=== PATIENT | male | born 1935 | race Caucasian/White ===

== ENCOUNTER → 2018-06-12 13:27 | Outpatient (CLI) | payer MEDICARE, SELFPAY ==
--- NOTE | 2018-06-12 13:40 | RAD_ITS ---
STUDY: X-RAY - ABDOMEN/PELVIS REASON FOR EXAM: Male, 82 years old. Pain TECHNIQUE: AP supine and upright views of the abdomen and pelvis. 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 Possible calcifications overlying the lower right renal shadow. Retained stool and bowel gas could obscure a calcification. There is a moderate amount of colonic fecal material. There is no demonstrated free abdominal air. The visualized liver, spleen and kidneys are grossly normal in size and morphology. There are calcified phleboliths in the pelvis. Normal visualized osseous structures. RAD/Abdomen Single View IMPRESSION: Possible right nephrolithiasis Retained stool No acute findings Electronically Signed: Johnson Krueger MD at 13:42 EDT , Service support ,
== END ==
PROVIDERS: Family Provider Family Medicine; PCP Family Medicine; Referring Provider Urology; Visit Provider Urology
DX: N20.0 Calculus of kidney (principal)
CPT/HCPCS: 74018

== ENCOUNTER → 2018-08-01 08:33 | Outpatient (CLI) | payer MEDICARE, SELFPAY ==
[2018-07-25 13:05] VITALS: BMI 22.4
--- NOTE | 2018-08-01 08:34 | AAVD_ITS ---
Reason For Study: AAA Aorta Measurements Aorta Doppler Measurements Proximal aorta measures2.54 x 2.57cm. in cross- Peak systolic flow velocities within the proximal sectional axis. aorta measure 80.7 cm/sec. Proximal aorta measures2.52cm. in longitudinal Peak systolic flow velocities within the mid aorta axis. measure 111.0 cm/sec. Mid aorta measures3.54 x 3.57cm. in cross- Peak systolic flow velocities within the distal sectional axis. aorta measure 93.9 cm/sec. Mid aorta measures3.50cm. in longitudinal axis. Distal aorta measures1.71 x 1.99cm. in cross- sectional axis. Distal aorta measures1.72cm. in longitudinal axis. Left Iliac Artery Left iliac artery measures 1.12 x 1.13 cm. in the cross-sectional axis. Left iliac artery measures 1.02 cm. in the longitudinal axis. Peak systolic velocity in the left iliac artery measures 92.1 cm/sec. Right Iliac Artery Right iliac artery measures 1.21 cm. in the longitudinal axis. Right iliac artery measures 1.28 x 1.27 cm. in the cross-sectional axis. Peak systolic velocity in the right iliac artery measures 90.3 cm/sec. Procedure Aorta IVC Iliac vasculature or bypass grafts 08051. The exam was diagnostic. Exam performed in department. 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 Ordering Physician: Mikhail Moran Referring Physician: Luis E Brunner Performed By: Uzma Anne, ABEBA, RVT
--- OUTSIDE RECORDS SUMMARY | 2018-11-02 09:02 | XMS RPT_ITS ---
:1935 Author Organization OHIP Care Team Providers Name Role Phone KAELA WINKLER III Attending Unavailable EDITH BELTRE (ALUMINUM SIDING MECHANIC) Attending Unavailable MIKHAIL GOLDEN Referring Unavailable CEBUL IIIKAELA Attending Unavailable CEBUL IIIKAELA Referring Unavailable CEBUL IIIKAELA Attending Unavailable CEBUL III, KAELA Lacey Attending Unavailable EDITH BELTRE (ALUMINUM SIDING MECHANIC) Attending Unavailable MIKHAIL GOLDEN Referring Unavailable MASCMIKHAIL Rojas Attending Unavailable MASCMIKHAIL Rojas Referring Unavailable MoodispawMikhail Attending Unavailable Cebul III, Kaela Referring Unavailable MoodispawMikhail Attending Unavailable MoodispaMikhail peterson Referring Unavailable Cebul III, Kaela Primary Care Unavailable Johnson Brenner Attending Unavailable Johnson Brenner Referring Unavailable Cebul III, Kaela Primary Care Unavailable Evelyn Villalpando Attending Unavailable CecameronlJosé Attending Unavailable Moodisp[place] Mikhail Referring Unavailable Cebul III, Kaela Primary Care Unavailable Mikhail Moran Consulting Unavailable MoodispaMikhail peterson Attending Unavailable Cebul III, Kaela Referring Unavailable Cebul III, Kaela Primary Care Unavailable PROBLEMS PROBLEMS DATE TYPE CONDITION / CODE ATTENDING STATUS SOURCE 08/01/2018 Unknown I10 - Essential José Winkler Active [facility] (primary) [facility] hypertension / Hospital I10(ICD-10) Repository 08/01/2018 Unknown I71.4 - Abdominal CebuJosé calvin Active [facility] aortic aneurysm, Community without rupture / Hospital I71.4(ICD-10) Repository 06/12/2018 Unknown N20.0 - Calculus of Johnson Brenner Active [facility] kidney / [facility] N20.0(ICD-10) Hospital Repository 11/24/2015 Active Vitamin B12 NA Active [place] deficiency anemia, [facility] unspecified / [place] D51.9(ICD-10) Repository 11/20/2015 Active Hyperlipidemia, NA Active [facility] unspecified / [facility] E78.5(ICD-10) [place] Repository 08/21/2014 Active Malignant neoplasm of NA Active [place] stomach, unspecified [facility] / C16.9(ICD-10) [place] Repository 12/21/2011 Active Hyperuricemia without NA Active [place] signs of inflammatory [facility] arthritis and [place] tophaceous disease / Repository E79.0(ICD-10) 05/01/2018 Active Vitamin D deficiency, NA Active [facility] unspecified / [facility] E55.9(ICD-10) [place] Repository 07/20/2017 Unknown I25.10 - DeanfridaMikhail peterson [place] [facility] Atherosclerotic heart [facility] disease of [facility] coronary artery Repository without angina pectoris / I25.10(ICD-10) 07/20/2017 Unknown Z95.5 - Presence of FauziaMikhail lindquist [facility] coronary angioplasty Community implant and graft / Hospital Z95.5(ICD-10) Repository 07/20/2017 Unknown I35.0 - Nonrheumatic DeanMikhail harrington [facility] aortic (valve) Community stenosis / Hospital I35.0(ICD-10) Repository PROCEDURES PROCEDURES No Procedure Records FoundRESULTS RESULTS PROGRESS Observed: 09/04/2018 Status: COMPLETED Source: [facility] 6:03 PM [facility] RE[facility] HNO ID: [id number] Author: Paul Vance (Rn) Service: (none) Author Type: Registered Nurse Type: Progress Notes Filed: 09/04/2018 6:11 PM Note Text: PRIMARY CARE COORDINATION FOLLOW-UP NOTE Provider Action/FYI Call to Pt spk with Jonny notified per Dr. Cebul Markham prescription refilled, verbalized understanding, and appreciation. Patient identified by name and date of . YES Spoke to spouse Signature Pinky Miller RN September 04, 2018 PROGRESS Observed: 09/04/2018 Status: COMPLETED Source: [facility] 5:56 PM [facility] REPOSITORY HNO ID: [id number] Author: Kaela Winkler III Service: (none) Author Type: Physician Type: Progress Notes Filed: 09/04/2018 6:11 PM Note Text: PDMP website checked and validated. All prescriptions have been APPROPRIATELY filled. No suspicious activity was identified. 09/04/2018 by Kaela Winkler III MD Taking an average of one norco per day Kaela Winkler III, , [facility] PROGRESS Observed: 09/04/2018 Status: COMPLETED Source: [facility] 3:31 PM [facility] REPOSITORY HNO ID: [id number] Author: Paul Vance (Rn) Service: (none) Author Type: Registered Nurse Type: Progress Notes Filed: 09/04/2018 6:11 PM Note Text: PRIMARY CARE COORDINATION PRE-VISIT ASSESSMENT Provider Action/FYI: 1. Spk with Pt who is requesting Markham refill to prevent the esophageal spasms, nausea and vomiting, Pt is maintaining wt of 1171 lbs. Pt reports he is now 4 yrs post Total Gastrectomy. 2. Pt has aching in his toes and feet, states will have Uric Acid drawn this week, scheduled PCP Appt for 09/10/18 at 4:00 to review lab work Patient has been identified by name and date of . Next Office Visit: 09/10/18 Last Office Visit Plan/Progress: 05/21/2018 Patient Concerns: Aching toes and feet -Uric Acid to be drawn this week Medication Review: Address in future encounter Health Maintenance: There are no preventive care reminders to display for this patient. Interventions/PCC Plan of Care: Follow for Care Needs Pinky Miller RN September 04, 2018 CNPTOUTREACH Observed: 09/04/2018 Status: COMPLETED Source: [facility] 12:00 AM [facility] REPOSITORY Patient Outreach ([facility]AMPWS) FILIPPO CHACON ([id number]) 1935 M Date Time Provider Department 09/04/18 PAUL VANCE (RN) [facility] During your visit today, we recorded the following information about you: Pinky Miller RN 09/04/2018 6:11 PM Signed PRIMARY CARE COORDINATION PRE-VISIT ASSESSMENT Provider Action/FYI: 1. Spk with Pt who is requesting Markham refill to prevent the esophageal spasms, nausea and vomiting, Pt is maintaining wt of 1171 lbs. Pt reports he is now 4 yrs post Total Gastrectomy. 2. Pt has aching in his toes and feet, states will have Uric Acid drawn this week, scheduled PCP Appt for 09/10/18 at 4:00 to review lab work Patient has been identified by name and date of . Next Office Visit: 09/10/18 Last Office Visit Plan/Progress: 05/21/2018 Patient Concerns: Aching toes and feet -Uric Acid to be drawn this week Medication Review: Address in future encounter Health Maintenance: There are no preventive care reminders to display for this patient. Interventions/PCC Plan of Care: Follow for Care Needs Pinky Miller RN September 04, 2018 Kaela Winkler III MD 09/04/2018 6:11 PM Signed PDMP website checked and validated. All prescriptions have been APPROPRIATELY filled. No suspicious activity was identified. 09/04/2018 by Kaela Winkler III MD Taking an average of one norco per day Kaela Winkler III, MD, FAAFP Pinky Miller RN 09/04/2018 6:11 PM Signed PRIMARY CARE COORDINATION FOLLOW-UP NOTE Provider Action/FYI Call to Pt spk with Jonny notified per Dr. Winkler Markham prescription refilled, verbalized understanding, and appreciation. Patient identified by name and date of . 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 Earliest Fill Date: 09/04/18Disp: 30 tabletRfl: 0 URIC ACID BLOOD [SQURIC] Order #: [id number] FUTURE Prescriptions as of 09/04/2018 Sig: HYDROCODONE 5 MG-ACETAMINOPHE* Take 1 tablet by mouth every * TAMSULOSIN 0.4 MG CAPSULE Take 1 capsule by mouth daily* SILDENAFIL (ANTIHYPERTENSIVE)* 20 mg by mouth once/day as ne* ALLOPURINOL 100 MG TABLET Take 2 tablets by mouth once * OMEPRAZOLE 40 MG CAPSULE,DANIELITO* 40mg by mouth daily PSEUDOEPHEDRINE-GUAIFENESIN E* Take 1 tablet by mouth every * DAILY VITAMIN TABLET Take one(1) tablet daily BY M* Problem List As Of Date 09/04/2018 Noted Resolved BENIGN HYPERTENSION [I10] 11/24/2014 Hyperlipidemia LDL goal <100 [E78.5] Inflamed seborrheic keratosis [L82.0] INVALID FOR*11/07/2014 Viral warts, unspecified [B07.9] INVALID FOR*11/07/2014 SOLAR LENGINES [L81.9] INVALID FOR*11/07/2014 XEROSIS [L73.8] INVALID FOR*11/07/2014 Other chronic dermatitis due to solar radiation*INVALID FOR*11/07/2014 CA IN SITU COLON [D01.0] INVALID FOR* BENIGN NEOPLASM LG BOWEL [D12.6] INVALID FOR* OTHER PSORIASIS [L40.8] INVALID FOR* Lipoma of unspecified site [D17.9] INVALID FOR*11/07/2014 AAA (abdominal aortic aneurysm) (HCC) [I71.4] INVALID FOR* More... 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 Earliest Fill Date: 09/04/18 Medications Discontinued During This Encounter HYDROcodone-acetaminophen (NORCO) 5-* 30 t* 0 07/24/2018 09/04/2018 Class: Print RX Route: ORAL Sig: Take 1 tablet by mouth every 6 hours as needed for Pain (or esophageal spasm) for up to 30 days. Earliest Fill Date: 07/24/18 Disc: Reason for discontinue is not on file. Encounter Status:Closed by PINKY MILLER on 09/04/18 PROGRESS Observed: 08/29/2018 Status: COMPLETED Source: [facility] 10:01 AM [facility] REPOSITORY HNO ID: [id number] Author: Mikhail Golden Service: (none) Author Type: Physician Type: Progress Notes Filed: 08/29/2018 10:46 AM Note Text: Diagnosis: 1) Gastric cancer HPI: The patient is a 82 yo male with a PMH significant for CAD (stent x1 in 2001), hyperuricemia and sleep apnea who underwent a gastrectomy in July 2014. 1. Stomach, total gastrectomy (A) - Moderately to poorly differentiated adenocarcinoma, with extensive foveolar differentiation (2.5cm in greatest dimension) with invasion into the submucosa but not into the muscularis propria. - Margins of resection are negative. - Thirty-three lymph nodes, negative for tumor (0/33). - See synoptic report. 2. Small bowel, nodule, excision (B) - Fibroadipose tissue with calcification. - Negative for carcinoma. 3. Esophageal margin #2, excision (C) - Squamous mucosa negative for invasive cancer. SAGE/MADDI/luis alfredo 07/29/2014 COMMENT 1. The tumor demonstrates a range of differentiation from areas of well-differentiated adenocarcinoma to areas of poorly differentiated single cells. The tumor involves the mucosa and the submucosa and abuts but does not invade into the muscularis propria. However, there is lymphovascular invasion. While 33 lymph nodes were ultimately found in this case. They were all negative and the vast majority of the lymph nodes were in the 1-2mm size range. IHC and molecular studies for HER2 were performed on the previous specimen ([id number]) HER-2 was noted to be equivocal. Surveillance CT scans in July 2015: 1. Stable postsurgical findings of distal esophagectomy, gastrectomy, and esophagojejunostomy. 2. Stable 4 mm indeterminate nodular opacity in the left lower lobe since 04/28/2014. Continued CT surveillance is suggested. 3. Indeterminate sclerotic lesion/region in the right aspect of the C7 vertebral body which was not imaged on the prior CT. While this may be degenerative, metastatic disease is not excluded and follow- up is recommended. 4. Findings consistent with prior granulomatous disease in the chest. POST ESOPHAGECTOMY AND ESOPHAGOJEJUNOSTOMY. NO METASTATIC DISEASE IN THE ABDOMEN OR PELVIS. 3.3 CM INFRARENAL ABDOMINAL AORTIC ANEURYSM, UNCHANGED. Presents for ongoing oncologic management. Interim history: Normal appetite. Still gets reflux, but finds chewing gum helps with that. Takes 1/2 Vicodin tablet morning and evening to stop esophageal spasms. No abdominal pain or nausea. Bowel movements tend to fluctuate--some days 2-3 times and sometimes goes 2-3 days without. Foods don't seem to related. Will take Imodium if going to be out and about. Staying active. PMH, medications and allergies as below personally reviewed by me today. Any changes documented in appropriate section. ROS: Constitutional: Denies episodes of fever and night sweats. Neuro: Denies BERG, vertigo and imbalance. No symptoms of neuropathy. HEENT: No recent change in voice, vision or hearing. Resp: Denies cough, wheeze and hemoptysis. No shortness of breath at rest. No DON. CVS: Denies exertional chest pain, PND, orthopnea and LE edema. GI: See above. : No dysuria or gross hematuria. No symptoms of bladder outlet obstruction--Flomax really helps. Endo: No hot flashes. Musculoskeletal: Denies bone, back, joint and muscular pain. Derm: No rash. Heme: No unusual bleeding or bruising. Psych: Normal mood. PHYSICAL EXAM: Vitals: Blood pressure 129/86, pulse (!) 52, temperature 36.5 ?C (97.7 ?F), weight 77.6 kg (171 lb). Well-appearing and in no acute distress. EYES: Sclerae are anicteric bilaterally. ENT: Oral mucosa is unremarkable. There is no sign of thrush or mucositis. NECK: Supple. No enlargement of thyroid. LYMPHATIC: There is no palpable cervical, supraclavicular or axillary or inguinal adenopathy. RESPIRATORY: Inspiratory breath sounds are of normal intensity in all mon. No rales, wheezes or rhonchi. CARDIOVASCULAR: Rhythm is regular. Normal intensity S1/S2. There is no gallop or murmur. ABDOMEN: The abdomen is nondistended. There is no organomegaly. No tenderness. Extremities: Free of edema. SKIN: No jaundice or rash. No petechiae. NEUROLOGIC: board certified music therapist II-XII are grossly intact. No focal motor weakness. 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 -No concerning symptoms or exam findings. -He has a history of a stable adrenal nodule. -He is now 4 years out from his original diagnosis of gastric cancer. -Recommended imaging on an as indicated basis at this point. He is intolerant to oral contrast. Plan: -OV in about 6 months. Plan on every 6 month office visit until 5 years out. Mikhail Golden DO CNOVSP Observed: 08/29/2018 Status: COMPLETED Source: [facility] 9:50 AM [facility] REPOSITORY Visit (SP) Office (HERMIN[facility]) FILIPPO CHACON ([id number]) 1935 M Date Time Provider Department 08/29/18 9:50 AM MIKHAIL GOLDEN During your visit today, we recorded the following information about you: Temperature Pulse Blood pressure Weight 97.7 degrees 52/minute 129/86 77.6 kg Mikhail Golden DO 08/29/2018 10:46 AM Signed Diagnosis: 1) Gastric cancer HPI: The patient is a 82 yo male with a PMH significant for CAD (stent x1 in 2001), hyperuricemia and sleep apnea who underwent a gastrectomy in July 2014. 1. Stomach, total gastrectomy (A) - Moderately to poorly differentiated adenocarcinoma, with extensive foveolar differentiation (2.5cm in greatest dimension) with invasion into the submucosa but not into the muscularis propria. - Margins of resection are negative. - Thirty-three lymph nodes, negative for tumor (0/33). - See synoptic report. 2. Small bowel, nodule, excision (B) - Fibroadipose tissue with calcification. - Negative for carcinoma. 3. Esophageal margin #2, excision (C) - Squamous mucosa negative for invasive cancer. SAGE/MADDI/luis alfredo 07/29/2014 COMMENT 1. The tumor demonstrates a range of differentiation from areas of well-differentiated adenocarcinoma to areas of poorly differentiated single cells. The tumor involves the mucosa and the submucosa and abuts but does not invade into the muscularis propria. However, there is lymphovascular invasion. While 33 lymph nodes were ultimately found in this case. They were all negative and the vast majority of the lymph nodes were in the 1-2mm size range. IHC and molecular studies for HER2 were performed on the previous specimen ([id number]) HER-2 was noted to be equivocal. Surveillance CT scans in July 2015: 1. Stable postsurgical findings of distal esophagectomy, gastrectomy, and esophagojejunostomy. 2. Stable 4 mm indeterminate nodular opacity in the left lower lobe since 04/28/2014. Continued CT surveillance is suggested. 3. Indeterminate sclerotic lesion/region in the right aspect of the C7 vertebral body which was not imaged on the prior CT. While this may be degenerative, metastatic disease is not excluded and follow- up is recommended. 4. Findings consistent with prior granulomatous disease in the chest. POST ESOPHAGECTOMY AND ESOPHAGOJEJUNOSTOMY. NO METASTATIC DISEASE IN THE ABDOMEN OR PELVIS. 3.3 CM INFRARENAL ABDOMINAL AORTIC ANEURYSM, UNCHANGED. Presents for ongoing oncologic management. Interim history: Normal appetite. Still gets reflux, but finds chewing gum helps with that. Takes 1/2 Vicodin tablet morning and evening to stop esophageal spasms. No abdominal pain or nausea. Bowel movements tend to fluctuate--some days 2-3 times and sometimes goes 2-3 days without. Foods don't seem to related. Will take Imodium if going to be out and about. Staying active. PMH, medications and allergies as below personally reviewed by me today. Any changes documented in appropriate section. ROS: Constitutional: Denies episodes of fever and night sweats. Neuro: Denies BERG, vertigo and imbalance. No symptoms of neuropathy. HEENT: No recent change in voice, vision or hearing. Resp: Denies cough, wheeze and hemoptysis. No shortness of breath at rest. No DON. CVS: Denies exertional chest pain, PND, orthopnea and LE edema. GI: See above. : No dysuria or gross hematuria. No symptoms of bladder outlet obstruction--Flomax really helps. Endo: No hot flashes. Musculoskeletal: Denies bone, back, joint and muscular pain. Derm: No rash. Heme: No unusual bleeding or bruising. Psych: Normal mood. PHYSICAL EXAM: Vitals: Blood pressure 129/86, pulse (!) 52, temperature 36.5 ?C (97.7 ?F), weight 77.6 kg (171 lb). Well-appearing and in no acute distress. EYES: Sclerae are anicteric bilaterally. ENT: Oral mucosa is unremarkable. There is no sign of thrush or mucositis. NECK: Supple. No enlargement of thyroid. LYMPHATIC: There is no palpable cervical, supraclavicular or axillary or inguinal adenopathy. RESPIRATORY: Inspiratory breath sounds are of normal intensity in all mon. No rales, wheezes or rhonchi. CARDIOVASCULAR: Rhythm is regular. Normal intensity S1/S2. There is no gallop or murmur. ABDOMEN: The abdomen is nondistended. There is no organomegaly. No tenderness. Extremities: Free of edema. SKIN: No jaundice or rash. No petechiae. NEUROLOGIC: board certified music therapist II-XII are grossly intact. No focal motor weakness. 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 -No concerning symptoms or exam findings. -He has a history of a stable adrenal nodule. -He is now 4 years out from his original diagnosis of gastric cancer. -Recommended imaging on an as indicated basis at this point. He is intolerant to oral contrast. Plan: -OV in about 6 months. Plan on every 6 month office visit until 5 years out. 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] Follow-up and Disposition History Recorded Prescriptions as of 08/29/2018 Sig: TAMSULOSIN 0.4 MG CAPSULE Take 1 capsule by mouth daily* HYDROCODONE 5 MG-ACETAMINOPHE* Take 1 tablet by mouth every * SILDENAFIL (ANTIHYPERTENSIVE)* 20 mg by mouth once/day as ne* ALLOPURINOL 100 MG TABLET Take 2 tablets by mouth once * OMEPRAZOLE 40 MG CAPSULE,DANIELITO* 40mg by mouth daily PSEUDOEPHEDRINE-GUAIFENESIN E* Take 1 tablet by mouth every * DAILY VITAMIN TABLET Take one(1) tablet daily BY M* Medication notes this encounter DAILY VITAMIN TABLET >> Nadia Tavera LPN, LPN 08/29/2018 10:05 AM >> NADIA TAVERA Aug 29, 2018 10:05 AM Taking 2 daily Problem List As Of Date 08/29/2018 Noted Resolved BENIGN HYPERTENSION [I10] 11/24/2014 Hyperlipidemia LDL goal <100 [E78.5] Inflamed seborrheic keratosis [L82.0] INVALID FOR*11/07/2014 Viral warts, unspecified [B07.9] INVALID FOR*11/07/2014 SOLAR LENGINES [L81.9] INVALID FOR*11/07/2014 XEROSIS [L73.8] INVALID FOR*11/07/2014 Other chronic dermatitis due to solar radiation*INVALID FOR*11/07/2014 CA IN SITU COLON [D01.0] INVALID FOR* BENIGN NEOPLASM LG BOWEL [D12.6] INVALID FOR* OTHER PSORIASIS [L40.8] INVALID FOR* Lipoma of unspecified site [D17.9] INVALID FOR*11/07/2014 AAA (abdominal aortic aneurysm) (HCC) [I71.4] INVALID FOR* More... 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 Signed Prescriptions Disp Refills tamsulosin ER (FLOMAX) 0.4 mg cap 30 capsule 5 Sig: Take 1 capsule by mouth daily at bedtime. YSEY: No Aj Simons, MSN EXTERIOR DESIGNER.ALUMINUM SIDING MECHANIC PROGRESS Observed: 08/09/2018 Status: COMPLETED Source: [place] 10:25 AM [facility] REPOSITORY HNO ID: [id number] Author: Paul Vance (Rn) Service: (none) Author Type: Registered Nurse Type: Progress Notes Filed: 08/09/2018 12:16 PM Note Text: PRIMARY CARE COORDINATION FOLLOW-UP NOTE Provider Action/FYI 1. Spk with Pt who is requesting a refill of Tamsulosin ER (FLOMAX) 0.4 mg cap sent to [facility] 2. Pt noted will have lab work completed for Uric Acid. 3. Pt had recent Appt with Dr. Moran who ordered an U/S of kidneys, was completed at [facility] for f/u of Aneurysm. Patient identified by name and date of . YES Spoke to patient Miner Helper plan for next outreach: Early symptom awareness to prevent complications Signature Pinky Miller RN August 09, 2018 CNPTOUTREA Observed: 08/09/2018 Status: COMPLETED Source: [place] 12:00 AM [facility] REPOSITORY Patient Outreach (FAMPWS) FILIPPO CHACON ([id number]) 1935 M Date Time Provider Department 08/09/18 PAUL VANCE (RN) FAMPWS During your visit today, we recorded the following information about you: Pinky Miller RN 08/09/2018 12:16 PM Signed PRIMARY CARE COORDINATION FOLLOW-UP NOTE Provider Action/FYI 1. Spk with Pt who is requesting a refill of Tamsulosin ER (FLOMAX) 0.4 mg cap sent to [facility] 2. Pt noted will have lab work completed for Uric Acid. 3. Pt had recent Appt with Dr. Moran who ordered an U/S of kidneys, was completed at [facility] for f/u of Aneurysm. Patient identified by name and date of . YES Spoke to patient Miner Helper plan for next outreach: Early symptom awareness to prevent complications Signature Pinky Miller RN August 09, 2018 Aj Simons, MSN EXTERIOR DESIGNER.ALUMINUM SIDING MECHANIC 08/09/2018 12:16 PM Signed The following approved medication requests have been transmitted electronically. Signed Prescriptions Disp Refills tamsulosin ER (FLOMAX) 0.4 mg cap 30 capsule 5 Sig: Take 1 capsule by mouth daily at bedtime. YESY: No Aj Simons, MSN EXTERIOR DESIGNER.ALUMINUM SIDING MECHANIC Allergies As of Date: 08/09/2018 Noted Allergy Reaction CORTISONE 10/18/2010 4 - Hives ADHESIVE TAPE (ROSINS) 04/21/2006 PENICILLINS 04/21/2006 2 - Rash ZOCOR (SIMVASTATIN) 04/05/2013 14 - Other: See Comments Comments: myalgia Date Reviewed: 07/19/2018 Reviewed by: Edith Beltre - Fully Assessed Reason for Visit: It Security Consulting Director - Patient Initiated [[id number]] Cmt: Medication Request Order(s):tamsulosin ER (FLOMAX) 0.4 mg capTake 1 capsule by mouth daily at bedtime.Disp: 30 capsuleRfl: 5 Prescriptions as of 08/09/2018 Sig: ALLOPURINOL 100 MG TABLET Take 2 tablets by mouth once * HYDROCODONE 5 MG-ACETAMINOPHE* Take 1 tablet by mouth every * DAILY VITAMIN TABLET Take one(1) tablet daily BY M* OMEPRAZOLE 40 MG CAPSULE,DANIELITO* 40mg by mouth daily PSEUDOEPHEDRINE-GUAIFENESIN E* Take 1 tablet by mouth every * SILDENAFIL (ANTIHYPERTENSIVE)* 20 mg by mouth once/day as ne* TAMSULOSIN 0.4 MG CAPSULE Take 1 capsule by mouth daily* Problem List As Of Date 08/09/2018 Noted Resolved BENIGN HYPERTENSION [I10] 11/24/2014 Hyperlipidemia LDL goal <100 [E78.5] Inflamed seborrheic keratosis [L82.0] INVALID FOR*11/07/2014 Viral warts, unspecified [B07.9] INVALID FOR*11/07/2014 SOLAR LENGINES [L81.9] INVALID FOR*11/07/2014 XEROSIS [L73.8] INVALID FOR*11/07/2014 Other chronic dermatitis due to solar radiation*INVALID FOR*11/07/2014 CA IN SITU COLON [D01.0] INVALID FOR* BENIGN NEOPLASM LG BOWEL [D12.6] INVALID FOR* OTHER PSORIASIS [L40.8] INVALID FOR* Lipoma of unspecified site [D17.9] INVALID FOR*11/07/2014 AAA (abdominal aortic aneurysm) (HCC) [I71.4] INVALID FOR* More... 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 Medications Discontinued During This Encounter tamsulosin ER (FLOMAX) 0.4 mg cap 30 c* 5 08/08/2018 08/09/2018 Sig: TAKE ONE CAPSULE BY MOUTH AT BEDTIME Disc: Reason for discontinue is not on file. Encounter Status:Closed by AJ SIMONS CNP on 08/09/18 ABD AORTIC/IVC DUPLEX Observed: 08/01/2018 Status: F Source: [place] SCAN 9:04 PM [facility] REPOSITORY [facility] [place] [address] Abd Aortic/IVC Duplex scan 08/01/18 0836 MR#: [id number] Acct: [id number] Name: FILIPPO CHACON Rep #: [id number] : 1935 82 From: José Winkler MD Attending Dr: Mikhail Moran MD Status: REG CLI Ordering Dr: Mikhail Moran MD Date: 08/01/18 Location: [facility] Sex: M C Admitted: Reason For Study: AAA Aorta Measurements Aorta Doppler Measurements Proximal aorta measures2.54 x 2.57cm. in cross- Peak systolic flow velocities within the proximal sectional axis. aorta measure 80.7 cm/sec. Proximal aorta measures2.52cm. in longitudinal Peak systolic flow velocities within the mid aorta axis. measure 111.0 cm/sec. Mid aorta measures3.54 x 3.57cm. in cross- Peak systolic flow velocities within the distal sectional axis. aorta measure 93.9 cm/sec. Mid aorta measures3.50cm. in longitudinal axis. Distal aorta measures1.71 x 1.99cm. in cross- sectional axis. Distal aorta measures1.72cm. in longitudinal axis. Left Iliac Artery Left iliac artery measures 1.12 x 1.13 cm. in the cross-sectional axis. Left iliac artery measures 1.02 cm. in the longitudinal axis. Peak systolic velocity in the left iliac artery measures 92.1 cm/sec. Right Iliac Artery Right iliac artery measures 1.21 cm. in the longitudinal axis. Right iliac artery measures 1.28 x 1.27 cm. in the cross-sectional axis. Peak systolic velocity in the right iliac artery measures 90.3 cm/sec. Procedure Aorta IVC Iliac vasculature or bypass grafts [id number]. The exam was diagnostic. Exam performed in department. 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 Ordering Physician: Mikhail Moran Referring Physician: Kaela Winkler Performed By: Uzma Anne, RDCS, RVT 08/01/182102 Date José Winkler MD CC: Kaela Winkler III, MD; Mikhail Moran MD Date Dictated: 08/01/18835 Date Transcribed: 08/01/182102 Circulating Nurse: Signed CARDIOLOGY VISIT Observed: 07/25/2018 Status: F Source: [place] REPORT 2:58 PM [facility] REPOSITORY [facility] [address] [place] [address]. [address] [place] [address] OFFICE VISIT Date of Service: 07/25/18 MR#: [id number] Acct: [id number] Name: FILIPPO CHACON Rep #: [id number] : 1935 Provider: Mikhail Moran MD Age/Sex: 82/M [place] [facility] [place]: Signed HPI HPI Details: FILIPPO CHACON, is a 82 M who presents to the office today for outpatient cardiovascular follow-up. Since his last outpatient visit of 07/20/2017 he states overall he is doing well. He denies at this time any ongoing symptoms of angina pectoris at rest or with exertion. There has been no evidence of overt CHF or pulmonary edema. There has been no near syncope or syncope. In August 2017 he had a follow-up transthoracic echocardiogram performed. The results are as noted below. He does not believe he has had any follow-up of his abdominal aortic aneurysm since his previous CT scan of May 2017. Intake Vital Signs07/25/18 Height 6 ft 1 in 07/25/18 Weight: 170 lb 07/25/18 Body Mass Index (BMI) 22.4 07/25/18 Blood Pressure 104/70 Intake Visit Reasons: 1 Y FU Allergies adhesive Allergy (Verified 07/25/18 13:05) Unknown cortisone [Cortisone] Allergy (Verified 07/25/18 13:05) Rash Penicillins Allergy (Verified 07/25/18 13:05) PT NOT SURE, HAPPENED WHEN HE WAS A CHILD simvastatin Allergy (Verified 07/25/18 13:05) Unknown Medications Multivitamins,Therapeutic [Multivitamin] 1 tab PO DAILY 04/22/14 [History Confirmed 07/25/18] Omeprazole [Prilosec] 40 mg PO DAILY 06/30/16 [History Confirmed 07/25/18] Tamsulosin HCl [Flomax] 0.4 mg PO DAILY 05/26/17 [History Confirmed 07/20/17] allopurinol 100 mg tablet 200 mg PO QDAY tab 07/25/18 [History Confirmed 07/25/18] cholecalciferol (vitamin D3) 1,000 unit capsule 1,000 unit PO DAILY cap 07/25/18 [History Confirmed 07/25/18] hydrocodone 5 mg-acetaminophen 325 mg tablet 0.5 tab PO PRN PRN tab 07/25/18 [History Confirmed 07/25/18] PFSH Medical History Old myocardial infarction (Acute) Presence of stent in coronary artery (Chronic 09/05/02) Essential hypertension (Chronic) 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) AAA (abdominal aortic aneurysm) (Chronic) Aortic valve stenosis (Acute) Murmur, cardiac (Chronic) Hyperlipidemia (Chronic) Sleep apnea (Chronic) BPH (benign prostatic hyperplasia) (Chronic) Gout (Chronic) Esophageal cancer (Acute) Abdominal aortic aneurysm (AAA) (Chronic) Gastric adenocarcinoma (Resolved) CAD (coronary artery disease) (Inactive) HTN (hypertension) (Inactive) Surgical History Presence of coronary angioplasty implant and graft (Chronic 09/05/02) History of cholecystectomy (Resolved) H/O right inguinal hernia repair (Resolved) History of cholecystectomy (Resolved) History of gastrectomy (Resolved 07/2014) Family History Father Congestive heart failure Social History Smoking Status: Never smoker alcohol intake: never substance use type: does not use ROS Const Const: Negative for fatigue, weakness, weight gain, weight loss, frequent falls or excessive sweating Eyes Eyes: Negative for change in vision, blurry vision or transient loss of vision ENT ENT: Negative for dizziness or balance problems Cardio Chest Pain: No Palpitations: No Edema: None Muscle aches with walking: None Resp Respiratory: Negative for SOB with activity or SOB at rest GI GI: Negative vomiting or vomiting blood/hematemesis : Negative for hematuria Musc Musc: Positive for muscle aches/ myalgia (bilat LE cramping at night); negative for balance problems, muscle weakness or joint pain Skin Skin: Negative non-healing lesions or rash Neuro Neuro: Negative for weakness, blurry vision, dizziness, lightheadedness, frequent falls or orthostatic symptoms Sahil Hematologic/Lymphatic: Negative for easy bleeding Endo Endo: Negative for fatigue or excessive sweating Psych Psych: Negative for anxiety or depression Allergy Allergy/Immunology: Negative for hives, Negative for rash Cardiology Exam Const Appearance: cooperative, healthy appearing, comfortable, no acute distress, well developed and well groomed Nutritional Appearance: thin Orientation: alert, awake, oriented x3 and oriented to person Head Head: normal to inspection Ears: hearing grossly normal bilaterally Nose: external nose normal Teeth and gingiva: fair dentition Eyes General: appearance normal, both eyes and all related structures Pupils: PERRL EOM: EOM intact bilaterally Neck Neck: normal visual inspection Carotids: normal carotid upstroke Chest Chest inspection: normal inspection of the chest and symmetric chest movement Auscultation: Bilateral: Clear to Auscultation Cardio Palpation: normal PMI Rate: regular rate Rhythm: regular rhythm Heart sounds: S1 normal and S2 normal Murmur: Grade 3/6, harsh, mid systolic, LLSB, LVOT and apex GI GI: normal to inspection, soft, no hepatosplenomegaly and bowel sounds present Neuro General: alert, awake and oriented x3 Skin Skin: no rashes or lesions noted Extremities Bruits: Positive: Right Femoral Bruit, Left Femoral Bruit, Abdominal Bruit, Right Radial Bruit, Left Radial Bruit Lower Extremity Edema: None: Bilateral Musculoskel Musculoskeletal: No joint tenderness, No joint redness, No joint warmth, No decreased ROM, No spinal deformity, No scoliosis, No lordosis Psych Psychological: normal affect Assessment AND Plan 1. Atherosclerosis of rincon coronary artery of rincon heart without angina pectoris I25.10 Plan At the present time he appears to be doing well. He will continue his current medical management. It was not felt he required further cardiac diagnostic studies or therapeutic intervention. 2. Presence of stent in coronary artery Z95.5 PTCA/stent of OM2 (1st and 3rd OM unable to be canalized.) 09/05/02 Plan He does have a history of PCI as previously described. He appears to be doing well. He will continue medical management. 3. Aortic stenosis I35.0 Plan He does have an element of aortic valve stenosis. He will continue to be followed by history, exam, and echocardiogram over time 4. Abdominal aortic aneurysm (AAA) without rupture I71.4 Plan He does have a history of abdominal aortic aneurysm without rupture. He will be asked to have an abdominal aortic ultrasound to reassess this in the hopes of being able to minimize radiation exposure based upon his previous hematologic/oncologic condition Orders Orders: 5. Hyperlipidemia, unspecified hyperlipidemia type E78.5 Plan A copy of his most recent lipid labs would be appreciated for continuity of care purposes. 6. Essential hypertension I10 Plan His blood pressure appears to be well controlled. He will continue medical management and follow-up as deemed appropriate. Orders Orders: Plan Detail Additional Comments Thank you for allowing me to participate in the care of your patient. Please don't hesitate to call if any issues arise. This note was generated using a voice recognition system and there may be incorrect words, spelling or punctuation that were not noted when reviewing the office note prior to saving. Follow Up 1 Year (PFM) Coding Level of Care Code Off vis,est,level 4 Diagnoses Atherosclerosis of rincon coronary artery of rincon heart without angina pectoris I25.10 Stebbins vs. transplanted heart: rincon heart Presence of stent in coronary artery Z95.5 Aortic stenosis I35.0 Abdominal aortic aneurysm (AAA) without rupture I71.4 Presence of rupture: without rupture Hyperlipidemia, unspecified hyperlipidemia type E78.5 Hyperlipidemia type: unspecified Essential hypertension I10 Coding Level of Care Code Off vis,est,level 4 Diagnoses Atherosclerosis of rincon coronary artery of rincon heart without angina pectoris I25.10 Stebbins vs. transplanted heart: rincon heart Presence of stent in coronary artery Z95.5 Aortic stenosis I35.0 Abdominal aortic aneurysm (AAA) without rupture I71.4 Presence of rupture: without rupture Hyperlipidemia, unspecified hyperlipidemia type E78.5 Hyperlipidemia type: unspecified Essential hypertension I10 07/25/18 1458 <Electronically signed by Mikhail Moran MD> Date Mikhail Moran MD Cosigner Signature: Date (if applicable) CC: Kaela Winkler III, MD; Mikhail Golden DO PROGRESS Observed: 07/24/2018 Status: COMPLETED Source: [place] 3:18 PM [facility] REPOSITORY HNO ID: [id number] Author: Pily Moore Service: (none) Author Type: Smoke And Flame Specialist Type: Progress Notes Filed: 07/24/2018 3:20 PM Note Text: [facility] QUICKNOTE Provider Action/FYI: Patient notify RX is ready to be tow picker. Spoke with Marimar. Patient identified by name and . 39 Pily Moore MA PROGRESS Observed: 07/24/2018 Status: COMPLETED Source: [place] 3:02 PM [facility] REPOSITORY HNO ID: [id number] Author: Kaela Winkler III Service: (none) Author Type: Physician Type: Progress Notes Filed: 07/24/2018 3:02 PM Note Text: PDMP website checked and validated. All prescriptions have been APPROPRIATELY filled. No suspicious activity was identified. 07/24/2018 by Kaela Winkler III MD PROGRESS Observed: 07/24/2018 Status: COMPLETED Source: [place] 3:01 PM [facility] REPOSITORY HNO ID: [id number] Author: Kaela Winkler III Service: (none) Author Type: Physician Type: Progress Notes Filed: 07/24/2018 3:01 PM Note Text: noted Kaela Winkler III MD PROGRESS Observed: 07/24/2018 Status: COMPLETED Source: [place] 10:05 AM [facility] REPOSITORY HNO ID: [id number] Author: Pily Moore Service: (none) Author Type: Smoke And Flame Specialist Type: Progress Notes Filed: 07/24/2018 11:04 AM Note Text: PRIMARY CARE COORDINATION [facility] LONGITUDINAL MAINTENANCE MONITORING PHMA Outreach: 1 month PCC Action/FYI: Patient is doing ok. Needs refill for [place]. Singh was very upset that he couldn't see Dr. Golden for f/u. And concerned about no lab work was done at his last visit. Last CT scan was . I spoke with Nevaeh Tavera LPN at Dr. Golden office. Dr. Golden will see the patient for his next visit. Nevaeh will call the patient if he needs lab work and CT Scan. Spoke to caregiver. Patient identified by name and . PCC last patient outreach encounter 06-13-18 Last PCP appointment: 05-21-18 Has the patient missed or cancelled any appointments in the last two months? No Any [facility] ED or hospital admissions in the past 2 months ? see CC LPOC NO Any outside ED or hospital admissions in the past 2 months No Medical records: Obtained Epic MEDICATIONS: Many patients have questions or concerns about their medications. Any medication changes? No Were you told to hold any medications? No Were any of your medications discontinued? No Do you have any questions about getting or taking your medications? No Do you have all the necessary equipment and supplies at home? Yes Additional Patient Information Patient stated that he was thinking about changing to [facility] for follow up for CA. Nevaeh Tavera LPN will contact the patient and change appointment. I will call patient when the [place] rx is ready for pick-up Next PHMA Outreach 08-25-17 PHMA Huddle with PCC: Continue monitoring PROGRESS Observed: 07/23/2018 Status: COMPLETED Source: [place] 11:06 AM [facility] REPOSITORY HNO ID: [id number] Author: Pily Moore Service: (none) Author Type: Smoke And Flame Specialist Type: Progress Notes Filed: 07/23/2018 11:08 AM Note Text: PRIMARY CARE COORDINATION [facility] [facility] [place] QUICKNOTE Provider Action/FYI: I have attempted to contact this patient by phone to return their call,for PHMA Longitudinal Monitoring.Left message to call back. Patient identified by name and . Pily Moore MA PROGRESS Observed: 07/19/2018 Status: COMPLETED Source: [place] 9:06 AM [facility] REPOSITORY HNO ID: [id number] Author: Edith Beltre Service: (none) Author Type: Nurse Practitioner Type: Progress Notes Filed: 07/19/2018 10:46 AM Note Text: Chief Complaint Patient presents with: Established Patient HPI: Filippo Chacon is a 82 year old male who presents here today for follow up gastric cancer. Per Dr. Golden's previous note: H/o CAD?(stent x1 in 2001), hyperuricemia?and sleep apnea?who underwent a gastrectomy in July 2014. ? 1. Stomach, total gastrectomy (A) - Moderately to poorly differentiated adenocarcinoma, with extensive foveolar differentiation (2.5cm in greatest dimension) with invasion into the submucosa but not into the muscularis propria. - Margins of resection are negative. - Thirty-three lymph nodes, negative for tumor (0/33). - See synoptic report. 2. Small bowel, nodule, excision (B) - Fibroadipose tissue with calcification. - Negative for carcinoma. 3. Esophageal margin #2, excision (C) - Squamous mucosa negative for invasive cancer. SAGE/MADDI/luis alfredo 07/29/2014 COMMENT 1. The tumor demonstrates a range of differentiation from areas of well-differentiated adenocarcinoma to areas of poorly differentiated single cells. The tumor involves the mucosa and the submucosa and abuts but does not invade into the muscularis propria. However, there is lymphovascular invasion. While 33 lymph nodes were ultimately found in this case. They were all negative and the vast majority of the lymph nodes were in the 1-2mm size range. IHC and molecular studies for HER2 were performed on the previous specimen ([id number]) ? HER-2 was noted to be equivocal. ? Surveillance CT scans in July 2015: 1. Stable postsurgical findings of distal esophagectomy, gastrectomy, and esophagojejunostomy. 2. Stable 4 mm indeterminate nodular opacity in the left lower lobe since 04/28/2014. Continued CT surveillance is suggested. 3. Indeterminate sclerotic lesion/region in the right aspect of the C7 vertebral body which was not imaged on the prior CT. While this may be degenerative, metastatic disease is not excluded and follow- up is recommended. 4. Findings consistent with prior granulomatous disease in the chest. ? POST ESOPHAGECTOMY AND ESOPHAGOJEJUNOSTOMY. NO METASTATIC DISEASE IN THE ABDOMEN OR PELVIS. 3.3 CM INFRARENAL ABDOMINAL AORTIC ANEURYSM, UNCHANGED. ? No complaints. ? Appetite:it's good-I eat four times per day It just depends on the type of food-fresh bread gets gummy. I don't digest beef easily. Energy level:I tend to take a nap more. But I do ok. Denies fevers or recent illness. Resp:denies cough or sob Cardiac:denies chest pain/palpitations GI:denies abd pain, n/v, moving bowels regularly if anything too easy-it will sometimes alternate between normal stool and diarrhea. :denies dysuria/hematuria Extrem:denies pain currently Neuro:denies symptoms of neuropathy Skin:denies rashes/lesions Heme:denies bleeding The ROS is otherwise negative. Past medical history, appointments, medications, allergies reviewed. No changes. EXAM: BP 118/78 Pulse 79 Temp 36.8 ?C (98.3 ?F) (Oral) Wt 78.7 kg (173 lb 8 oz) BMI 25.41 kg/m? APPEARANCE Well appearing, alert, in no acute distress, well-hydrated, well nourished. HEART RRR with normal S1 and S2, no murmurs LUNG clear to auscultation LYMPH NODES No cervical lymphadenopathy, No supraclavicular lymphadenopathy and No axillary lymphadenopathy. ABDOMEN bowel sounds normoactive, soft, non-tender, non-distended, without organomegaly or palpable masses EXTREMITIES No edema NEURO Awake, alert and oriented x 3, Normal gait and No involuntary motions. SKIN Skin color, texture, turgor normal, no suspicious rashes or lesions ASSESSMENT/PLAN: 1. 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 - No concerning findings on exam. - He is 4 years out from surgery. - Per Dr. Golden's previous note-Recommended imaging on an as indicated basis at this point. He is intolerant to oral contrast. - Plan on every 6 month office visit until 5 years out. - Follow up in 6 months. - Pt. aware to call office with any questions/concerns. The patient indicates understanding of these issues and agrees with the plan. Edith Beltre APRN.CNP CNOVSP Observed: 07/19/2018 Status: COMPLETED Source: [place] 9:00 AM [facility] REPOSITORY Visit (SP) Office (HERMIN[place]) FILIPPO CHACON ([id number]) 1935 M Date Time Provider Department 07/19/18 9:00 AM EDITH BELTRE During your visit today, we recorded the following information about you: Temperature Pulse Blood pressure Weight 98.3 degrees 79/minute 118/78 78.7 kg Edith Beltre APRN.CNP 07/19/2018 10:46 AM Signed Chief Complaint Patient presents with: Established Patient HPI: Filippo Chacon is a 82 year old male who presents here today for follow up gastric cancer. Per Dr. Golden's previous note: H/o CAD?(stent x1 in 2001), hyperuricemia?and sleep apnea?who underwent a gastrectomy in July 2014. ? 1. Stomach, total gastrectomy (A) - Moderately to poorly differentiated adenocarcinoma, with extensive foveolar differentiation (2.5cm in greatest dimension) with invasion into the submucosa but not into the muscularis propria. - Margins of resection are negative. - Thirty-three lymph nodes, negative for tumor (0/33). - See synoptic report. 2. Small bowel, nodule, excision (B) - Fibroadipose tissue with calcification. - Negative for carcinoma. 3. Esophageal margin #2, excision (C) - Squamous mucosa negative for invasive cancer. SAGE/MADDI/luis alfredo 07/29/2014 COMMENT 1. The tumor demonstrates a range of differentiation from areas of well-differentiated adenocarcinoma to areas of poorly differentiated single cells. The tumor involves the mucosa and the submucosa and abuts but does not invade into the muscularis propria. However, there is lymphovascular invasion. While 33 lymph nodes were ultimately found in this case. They were all negative and the vast majority of the lymph nodes were in the 1-2mm size range. IHC and molecular studies for HER2 were performed on the previous specimen ([id number]) ? HER-2 was noted to be equivocal. ? Surveillance CT scans in July 2015: 1. Stable postsurgical findings of distal esophagectomy, gastrectomy, and esophagojejunostomy. 2. Stable 4 mm indeterminate nodular opacity in the left lower lobe since 04/28/2014. Continued CT surveillance is suggested. 3. Indeterminate sclerotic lesion/region in the right aspect of the C7 vertebral body which was not imaged on the prior CT. While this may be degenerative, metastatic disease is not excluded and follow- up is recommended. 4. Findings consistent with prior granulomatous disease in the chest. ? POST ESOPHAGECTOMY AND ESOPHAGOJEJUNOSTOMY. NO METASTATIC DISEASE IN THE ABDOMEN OR PELVIS. 3.3 CM INFRARENAL ABDOMINAL AORTIC ANEURYSM, UNCHANGED. ? No complaints. ? Appetite:it's good-I eat four times per day It just depends on the type of food-fresh bread gets gummy. I don't digest beef easily. Energy level:I tend to take a nap more. But I do ok. Denies fevers or recent illness. Resp:denies cough or sob Cardiac:denies chest pain/palpitations GI:denies abd pain, n/v, moving bowels regularly if anything too easy-it will sometimes alternate between normal stool and diarrhea. :denies dysuria/hematuria Extrem:denies pain currently Neuro:denies symptoms of neuropathy Skin:denies rashes/lesions Heme:denies bleeding The ROS is otherwise negative. Past medical history, appointments, medications, allergies reviewed. No changes. EXAM: BP 118/78 Pulse 79 Temp 36.8 ?C (98.3 ?F) (Oral) Wt 78.7 kg (173 lb 8 oz) BMI 25.41 kg/m? APPEARANCE Well appearing, alert, in no acute distress, well- hydrated, well nourished. HEART RRR with normal S1 and S2, no murmurs LUNG clear to auscultation LYMPH NODES No cervical lymphadenopathy, No supraclavicular lymphadenopathy and No axillary lymphadenopathy. ABDOMEN bowel sounds normoactive, soft, non-tender, non-distended, without organomegaly or palpable masses EXTREMITIES No edema NEURO Awake, alert and oriented x 3, Normal gait and No involuntary motions. SKIN Skin color, texture, turgor normal, no suspicious rashes or lesions ASSESSMENT/PLAN: 1. 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 - No concerning findings on exam. - He is 4 years out from surgery. - Per Dr. Golden's previous note-Recommended imaging on an as indicated basis at this point. He is intolerant to oral contrast. - Plan on every 6 month office visit until 5 years out. - Follow up in 6 months. - Pt. aware to call office with any questions/concerns. The patient indicates understanding of these issues and agrees with the plan. Edith Beltre APRN.ALUMINUM SIDING MECHANIC Referring Provider: MIKHAIL GOLDEN [[id number]] Allergies As of Date: 07/19/2018 Noted Allergy Reaction CORTISONE 10/18/2010 4 - Hives ADHESIVE TAPE (ROSINS) 04/21/2006 PENICILLINS 04/21/2006 2 - Rash ZOCOR (SIMVASTATIN) 04/05/2013 14 - Other: See Comments Comments: myalgia Date Reviewed: 07/19/2018 Reviewed by: Edith Beltre - Fully Assessed Reason for Visit: Established Patient [175] Primary Visit Diagnosis: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] Follow-up and Disposition History Recorded Prescriptions as of 07/19/2018 Sig: SILDENAFIL (ANTIHYPERTENSIVE)* 20 mg by mouth once/day as ne* ALLOPURINOL 100 MG TABLET Take 2 tablets by mouth once * HYDROCODONE 5 MG-ACETAMINOPHE* Take 1 tablet by mouth every * OMEPRAZOLE 40 MG CAPSULE,DANIELITO* 40mg by mouth daily TAMSULOSIN 0.4 MG CAPSULE TAKE ONE CAPSULE BY MOUTH AT * PSEUDOEPHEDRINE-GUAIFENESIN E* Take 1 tablet by mouth every * DAILY VITAMIN TABLET Take one(1) tablet daily BY M* Medication notes this encounter CYANOCOBALAMIN (VIT B-12) 1,000 MCG TABLET >> Amy Fairbanks MA 07/19/2018 9:16 AM >> AMY FAIRBANKS MA Gauri Jul 19, 2018 9:16 AM Not taking. CHOLECALCIFEROL (VITAMIN D3) 2,000 UNIT CAPSULE >> Amy Fairbanks MA 07/19/2018 9:16 AM >> AMY FAIRBANKS MA Jul 19, 2018 9:16 AM Not taking. Problem List As Of Date 07/19/2018 Noted Resolved BENIGN HYPERTENSION [I10] 11/24/2014 Hyperlipidemia LDL goal <100 [E78.5] Inflamed seborrheic keratosis [L82.0] INVALID FOR*11/07/2014 Viral warts, unspecified [B07.9] INVALID FOR*11/07/2014 SOLAR LENGINES [L81.9] INVALID FOR*11/07/2014 XEROSIS [L73.8] INVALID FOR*11/07/2014 Other chronic dermatitis due to solar radiation*INVALID FOR*11/07/2014 CA IN SITU COLON [D01.0] INVALID FOR* BENIGN NEOPLASM LG BOWEL [D12.6] INVALID FOR* OTHER PSORIASIS [L40.8] INVALID FOR* Lipoma of unspecified site [D17.9] INVALID FOR*11/07/2014 AAA (abdominal aortic aneurysm) (HCC) [I71.4] INVALID FOR* More... 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] INVALID FOR* Encounter Status:Closed by EDITH BELTRE CNP on 07/19/18 PROGRESS Observed: 06/26/2018 Status: COMPLETED Source: [place] 2:04 PM [facility] REPOSITORY HNO ID: [id number] Author: Kaela Winkler III Service: (none) Author Type: Physician Type: Progress Notes Filed: 06/26/2018 2:04 PM Note Text: noted Kaela Winkler III MD PROGRESS Observed: 06/26/2018 Status: COMPLETED Source: [place] 11:35 AM [facility] REPOSITORY HNO ID: [id number] Author: Paul Vance (Jigar) Service: (none) Author Type: Registered Nurse Type: Progress Notes Filed: 06/26/2018 11:36 AM Note Text: PRIMARY CARE COORDINATION QUICK NOTE Provider Action/FYI Noted, Thank You Patient identified by name and date . Pinky Miller RN June 26, 2018 11:35 AM PROGRESS Observed: 06/26/2018 Status: COMPLETED Source: [place] 10:35 AM [facility] REPOSITORY HNO ID: [id number] Author: Pily Peters) Myke Service: (none) Author Type: Smoke And Flame Specialist Type: Progress Notes Filed: 06/26/2018 11:36 AM Note Text: PRIMARY CARE COORDINATION [facility] LONGITUDINAL MAINTENANCE MONITORING [facility] Outreach: 1 Month PCC Action/FYI: Patient is doing well with change in Allopurinol 100 mg twice a day. He has no signs of rash since Allopurill it was decreased. Patient has appointment with Edith Beltre CNP on 07-19-18. For CA of the stomach. Was DX on July. Next follow up call - July Spoke to patient. Patient identified by name and . PCC last patient outreach encounter 06-13-18 Last PCP appointment: 05-21-18 Has the patient missed or cancelled any appointments in the last two months? No Any [facility] ED or hospital admissions in the past 2 months ? see CC LPOC NO Any outside ED or hospital admissions in the past 2 months No Medical records: Epic MEDICATIONS: Many patients have questions or concerns about their medications. Any medication changes? No Were you told to hold any medications? No Were any of your medications discontinued? No Do you have any questions about getting or taking your medications? No Do you have all the necessary equipment and supplies at home? Yes Additional Patient Information Patient doing well. He has appointment with Edtih Beltre CNP . Follow up for stomach cancer. Patient states it has been 4 years since he was DX with cancer. Advised patient if need has any problems contact my self, Pinky Miller RN or Dr. Winkler. Next [facility] Outreach Week of July 23 [facility] Huddle with PCC: Continue monitoring Appointments for Next 60 Days Date Time Provider Location Dept Phone 07/19/2018 9:00 AM EDITH BELTRE [facility] [phone] CHANTALETOUTREACH Observed: 06/26/2018 Status: COMPLETED Source: [place] 12:00 AM [facility] REPOSITORY Patient Outreach (FAMPWS) FILIPPO CHACON ([id number]) 1935 M Date Time Provider Department 06/26/18 PILY MOORE) JESSICAPWS During your visit today, we recorded the following information about you: Pily Moore MA 06/26/2018 11:36 AM Signed PRIMARY CARE COORDINATION [facility] LONGITUDINAL MAINTENANCE MONITORING [facility]MA Outreach: 1 Month PCC Action/FYI: Patient is doing well with change in Allopurinol 100 mg twice a day. He has no signs of rash since Allopurill it was decreased. Patient has appointment with Edith Beltre CNP on 07-19-18. For CA of the stomach. Was DX on July. Next follow up call - July Spoke to patient. Patient identified by name and . PCC last patient outreach encounter 06-13-18 Last PCP appointment: 05-21-18 Has the patient missed or cancelled any appointments in the last two months? No Any [facility] ED or hospital admissions in the past 2 months ? see CC LPOC NO Any outside ED or hospital admissions in the past 2 months No Medical records: Epic MEDICATIONS: Many patients have questions or concerns about their medications. Any medication changes? No Were you told to hold any medications? No Were any of your medications discontinued? No Do you have any questions about getting or taking your medications? No Do you have all the necessary equipment and supplies at home? Yes Additional Patient Information Patient doing well. He has appointment with Edith Beltre CNP . Follow up for stomach cancer. Patient states it has been 4 years since he was DX with cancer. Advised patient if need has any problems contact my self, Pinky Miller RN or Dr. Winkler. Next [facility] Outreach Week of July 23 PHMA Huddle with PCC: Continue monitoring Appointments for Next 60 Days Date Time Provider Location Dept Phone 07/19/2018 9:00 AM EDITH BELTRE [facility] [phone] Pinky Miller RN 06/26/2018 11:36 AM Signed PRIMARY CARE COORDINATION QUICK NOTE Provider Action/FYI Noted, Thank You Patient identified by name and date . Pinky Miller RN June 26, 2018 11:35 AM Kaela Winkler III MD 06/26/2018 2:04 PM Signed noted CHAYO Hicks MD, MA 07/23/2018 11:08 AM Signed PRIMARY CARE COORDINATION [facility] [place] [facility] QUICKNOTE Provider Action/FYI: I have attempted to contact this patient by phone to return their call,for PHMA Longitudinal Monitoring.Left message to call back. Patient identified by name and . ЕКАТЕРИНА Weber MA 07/24/2018 11:04 AM Signed PRIMARY CARE COORDINATION [facility] LONGITUDINAL MAINTENANCE MONITORING PHMA Outreach: 1 month PCC Action/FYI: Patient is doing ok. Needs refill for [place]. Singh was very upset that he couldn't see Dr. Golden for f/u. And concerned about no lab work was done at his last visit. Last CT scan was . I spoke with Nevaeh Tavera LPN at Dr. Golden office. Dr. Golden will see the patient for his next visit. Nevaeh will call the patient if he needs lab work and CT Scan. Spoke to caregiver. Patient identified by name and . PCC last patient outreach encounter 06-13-18 Last PCP appointment: 05-21-18 Has the patient missed or cancelled any appointments in the last two months? No Any [facility] ED or hospital admissions in the past 2 months ? see CC LPOC NO Any outside ED or hospital admissions in the past 2 months No Medical records: Obtained Epic MEDICATIONS: Many patients have questions or concerns about their medications. Any medication changes? No Were you told to hold any medications? No Were any of your medications discontinued? No Do you have any questions about getting or taking your medications? No Do you have all the necessary equipment and supplies at home? Yes Additional Patient Information Patient stated that he was thinking about changing to [facility] for follow up for CA. Nevaeh Tavera LPN will contact the patient and change appointment. I will call patient when the [place] rx is ready for pick-up Next [facility] Outreach 08-25-17 [facility] Huddle with PCC: Continue monitoring Pily Moore MA 07/24/2018 11:04 AM Signed Addended by: PILY MOORE on: 07/24/2018 11:04 AM Modules accepted: Orders Kaela Winkler III MD 07/24/2018 3:01 PM Signed noted CHAYO Hicks MD, III MD 07/24/2018 3:02 PM Signed PDMP website checked and validated. All prescriptions have been APPROPRIATELY filled. No suspicious activity was identified. 07/24/2018 by CHAYO Hicks MD, III MD 07/24/2018 3:02 PM Signed Addended by: KAELA WINKLER III, MD on: 07/24/2018 03:02 PM Modules accepted: Orders Pily Moore MA 07/24/2018 3:20 PM [address] [facility] [place] QUICK[facility] Provider Action/FYI: Patient notify RX is ready to be tow picker. Spoke with Marimar. Patient identified by name and . 39 Pily Moore MA Allergies As of Date: 06/26/2018 Noted Allergy Reaction CORTISONE 10/18/2010 4 - Hives ADHESIVE TAPE (ROSINS) 04/21/2006 PENICILLINS 04/21/2006 2 - Rash ZOCOR (SIMVASTATIN) 04/05/2013 14 - Other: See Comments Comments: myalgia Date Reviewed: 05/21/2018 Reviewed by: Amanda Harrington LPN - Fully Assessed Reason for Visit: PHMA/Care Gap Outreach [3605] Visit Diagnoses: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] Esophageal spasm [K22.4] Prescriptions as of 06/26/2018 Sig: X HYDROCODONE 5 MG-ACETAMINOPHE* Take 1 tablet by mouth every * SILDENAFIL (ANTIHYPERTENSIVE)* 20 mg by mouth once/day as ne* ALLOPURINOL 100 MG TABLET Take 2 tablets by mouth once * OMEPRAZOLE 40 MG CAPSULE,DANIELITO* 40mg by mouth daily X TAMSULOSIN 0.4 MG CAPSULE TAKE ONE CAPSULE BY MOUTH AT * X CYANOCOBALAMIN (VIT B-12) 1,0* 1000 mcg by mouth weekly Patient not taking: Reported on 04/26/2018 PSEUDOEPHEDRINE-GUAIFENESIN E* Take 1 tablet by mouth every * X CHOLECALCIFEROL (VITAMIN D3) * Take 1 tablet by mouth once d* DAILY VITAMIN TABLET Take one(1) tablet daily BY M* Problem List As Of Date 06/26/2018 Noted Resolved BENIGN HYPERTENSION [I10] 11/24/2014 Hyperlipidemia LDL goal <100 [E78.5] Inflamed seborrheic keratosis [L82.0] INVALID FOR*11/07/2014 Viral warts, unspecified [B07.9] INVALID FOR*11/07/2014 SOLAR LENGINES [L81.9] INVALID FOR*11/07/2014 XEROSIS [L73.8] INVALID FOR*11/07/2014 Other chronic dermatitis due to solar radiation*INVALID FOR*11/07/2014 CA IN SITU COLON [D01.0] INVALID FOR* BENIGN NEOPLASM LG BOWEL [D12.6] INVALID FOR* OTHER PSORIASIS [L40.8] INVALID FOR* Lipoma of unspecified site [D17.9] INVALID FOR*11/07/2014 AAA (abdominal aortic aneurysm) ([facility]) [I71.4] INVALID FOR* More... 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 Earliest Fill Date: 07/24/18 Medications Discontinued During This Encounter HYDROcodone-acetaminophen (NORCO) 5-* 30 t* 0 06/07/2018 07/24/2018 Class: Print RX Route: ORAL Sig: Take 1 tablet by mouth every 6 hours as needed for Pain (or esophageal spasm) for up to 30 days. Earliest Fill Date: 06/07/18 Disc: Reason for discontinue is not on file. Encounter Status:Closed by PINKY MILLER on 06/26/18 PROGRESS Observed: 06/14/2018 Status: COMPLETED Source: [place] 11:04 AM [facility] REPOSITORY HNO ID: [id number] Author: Paul Vance (Rn) Service: (none) Author Type: Registered Nurse Type: Progress Notes Filed: 06/14/2018 11:21 AM Note Text: PRIMARY CARE COORDINATION FOLLOW-UP NOTE Provider Action/FYI Spk with Jonny notified Sildenafil 20 mg po ordered once per day as needed. verbalized understanding. Patient identified by name and date of . YES Spoke to spouse Signature Pinky Miller RN June 14, 2018 PROGRESS Observed: 06/13/2018 Status: COMPLETED Source: [place] 5:02 PM [facility] REPOSITORY HNO ID: [id number] Author: Paul Vance (Rn) Service: (none) Author Type: Registered Nurse Type: Progress Notes Filed: 06/14/2018 11:21 AM Note Text: PRIMARY CARE COORDINATION FOLLOW-UP NOTE Provider Action/FYI Call from Pt requesting Generic Viagra noting Cialis is too costly, please send to [facility]. Patient identified by name and date of . YES Spoke to patient Signature Pinky Miller RN June 13, 2018 CNPTOUTREACH Observed: 06/13/2018 Status: COMPLETED Source: [place] 12:00 AM [facility] REPOSITORY Patient Outreach (FAMPWS) FILIPPO CHACON ([id number]) 1935 M Date Time Provider Department 06/13/18 PAUL VANCE (RN) FAMPWS During your visit today, we recorded the following information about you: Pinky Miller RN 06/14/2018 11:21 AM Signed PRIMARY CARE COORDINATION FOLLOW-UP NOTE Provider Action/FYI Call from Pt requesting Generic Viagra noting Cialis is too costly, please send to [facility]. Patient identified by name and date of . YES Spoke to patient Signature Pinky Miller RN June 13, 2018 Pinky Miller RN 06/14/2018 11:21 AM Signed PRIMARY CARE COORDINATION FOLLOW-UP NOTE Provider Action/FYI Spk with Jonny notified Sildenafil 20 mg po ordered once per day as needed. verbalized understanding. Patient identified by name and date of . YES Spoke to spouse Signature Pinky Miller RN June 14, 2018 Allergies As of Date: 06/13/2018 Noted Allergy Reaction CORTISONE 10/18/2010 4 - Hives ADHESIVE TAPE (ROSINS) 04/21/2006 PENICILLINS 04/21/2006 2 - Rash ZOCOR (SIMVASTATIN) 04/05/2013 14 - Other: See Comments Comments: myalgia Date Reviewed: 05/21/2018 Reviewed by: Amanda Harrington LPN - Fully Assessed Reason for Visit: It Security Consulting Director - Patient Initiated [[id number]] Cmt: Medication Request Order(s):sildenafil (REVATIO) 20 mg mg by mouth once/day as neededDisp: 10 tabletRfl: 11 Prescriptions as of 06/13/2018 Sig: SILDENAFIL (ANTIHYPERTENSIVE)* 20 mg by mouth once/day as ne* ALLOPURINOL 100 MG TABLET Take 2 tablets by mouth once * HYDROCODONE 5 MG-ACETAMINOPHE* Take 1 tablet by mouth every * OMEPRAZOLE 40 MG CAPSULE,DANIELITO* 40mg by mouth daily TAMSULOSIN 0.4 MG CAPSULE TAKE ONE CAPSULE BY MOUTH AT * CYANOCOBALAMIN (VIT B-12) 1,0* 1000 mcg by mouth weekly Patient not taking: Reported on 04/26/2018 PSEUDOEPHEDRINE-GUAIFENESIN E* Take 1 tablet by mouth every * CHOLECALCIFEROL (VITAMIN D3) * Take 1 tablet by mouth once d* DAILY VITAMIN TABLET Take one(1) tablet daily BY M* Problem List As Of Date 06/13/2018 Noted Resolved BENIGN HYPERTENSION [I10] 11/24/2014 Hyperlipidemia LDL goal <100 [E78.5] Inflamed seborrheic keratosis [L82.0] INVALID FOR*11/07/2014 Viral warts, unspecified [B07.9] INVALID FOR*11/07/2014 SOLAR LENGINES [L81.9] INVALID FOR*11/07/2014 XEROSIS [L73.8] INVALID FOR*11/07/2014 Other chronic dermatitis due to solar radiation*INVALID FOR*11/07/2014 CA IN SITU COLON [D01.0] INVALID FOR* BENIGN NEOPLASM LG BOWEL [D12.6] INVALID FOR* OTHER PSORIASIS [L40.8] INVALID FOR* Lipoma of unspecified site [D17.9] INVALID FOR*11/07/2014 AAA (abdominal aortic aneurysm) (HCC) [I71.4] INVALID FOR* More... 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 Disc: Cost of medication Encounter Status:Closed by PINKY MILLER on 06/14/18 ABDOMEN SINGLE VIEW Observed: 06/12/2018 Status: F Source: [place] 1:31 PM [facility] REPOSITORY [facility] Imaging Services [address] [place] [id number] Abdomen Single View MR#: [id number] Acct: [id number] Name: FILIPPO CHACON Rep #: [id number] : 1935 M 82 From: Chad Krueger MD PCP: Kaela Winkler III, MD Status: REG CLI Study: Abdomen Single View Date of Exam: 06/12/18 Exam# [id number] Ordering Dr: Johnson Brenner MD STUDY: X-RAY - ABDOMEN/PELVIS REASON FOR EXAM: Male, 82 years old. Pain TECHNIQUE: AP supine and upright views of the abdomen and pelvis. 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 Possible calcifications overlying the lower right renal shadow. Retained stool and bowel gas could obscure a calcification. There is a moderate amount of colonic fecal material. There is no demonstrated free abdominal air. The visualized liver, spleen and kidneys are grossly normal in size and morphology. There are calcified phleboliths in the pelvis. Normal visualized osseous structures. RAD/Abdomen Single View IMPRESSION: Possible right nephrolithiasis Retained stool No acute findings Electronically Signed: Johnson Krueger MD at 13:42 EDT , Service support , CC: Kaela Winkler III, MD; Johnson Brenner MD Circulating Nurse: Signed PROGRESS Observed: 06/07/2018 Status: COMPLETED Source: [facility] 3:14 PM [facility]NO ID: [id number] Author: Paul Vance (Rn) Service: (none) Author Type: Registered Nurse Type: Progress Notes Filed: 06/07/2018 3:54 PM Note Text: PRIMARY CARE COORDINATION QUICK NOTE Provider Action/FYI Call to Pt, spk with Jonny notified Allopurinol 100 mg take 2 tablets by mouth once daily ordered, instructed to stop previous 300 mg po daily. Jonny verbalized understanding. 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 Jonny verbalized understanding. Patient identified by name and date . Pinky Miller RN June 07, 2018 3:14 PM PROGRESS Observed: 06/07/2018 Status: COMPLETED Source: [place] 2:30 PM [facility]NO ID: [id number] Author: Kaela Winkler III Service: (none) Author Type: Physician Type: Progress Notes Filed: 06/07/2018 3:54 PM Note Text: PDMP website checked and validated. All prescriptions have been APPROPRIATELY filled. No suspicious activity was identified. 06/07/2018 by Kaela Winkler III MD PROGRESS Observed: 06/07/2018 Status: COMPLETED Source: [place] 12:21 PM [facility]NO ID: [id number] Author: Paul WestRn) Service: (none) Author Type: Registered Nurse Type: Progress Notes Filed: 06/07/2018 3:54 PM Note Text: PRIMARY CARE COORDINATION FOLLOW-UP NOTE Provider Action/FYI Pt called noting he developed a rash after the increased dose of Allopurinol to 300 mg po daily. Filippo asked if he could return to a lower dose and is requesting a refill of Markham for esophageal spasms, to prevent vomiting. Patient identified by name and date of . YES Signature Pinky Miller RN June 07, 2018 KWAME Observed: 06/07/2018 Status: COMPLETED Source: [place] 12:00 AM [facility] REPOSITORY Patient Outreach (FAMPWS) OSWALDOFILIPPO Oviedo ([id number]) 1935 M Date Time Provider Department 06/07/18 PAUL CARBALLO) FAMPWS During your visit today, we recorded the following information about you: Pinky Miller RN 06/07/2018 3:54 PM Signed PRIMARY CARE COORDINATION FOLLOW-UP NOTE Provider Action/FYI Pt called noting he developed a rash after the increased dose of Allopurinol to 300 mg po daily. Filippo asked if he could return to a lower dose and is requesting a refill of [place]ham for esophageal spasms, to prevent vomiting. Patient identified by name and date of . YES Signature Pinky Miller RN June 07, 2018 Kaela Winkler III MD 06/07/2018 3:54 PM Signed PDMP website checked and validated. All prescriptions have been APPROPRIATELY filled. No suspicious activity was identified. 06/07/2018 by CHAYO Hicks MD, RN 06/07/2018 3:54 PM Signed PRIMARY CARE COORDINATION QUICK NOTE Provider Action/FYI Call to Pt, spk with Jonny notified Allopurinol 100 mg take 2 tablets by mouth once daily ordered, instructed to stop previous 300 mg po daily. Jonny verbalized understanding. 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 Jonny verbalized understanding. Patient identified by name and date . 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 For gout.Disp: 60 tabletRfl: 11 HYDROcodone-acetaminophen (NORCO) 5-325 mg per tabletTake 1 tablet by mouth every 6 hours as needed for Pain (or esophageal spasm) for up to 30 days. Earliest Fill Date: 06/07/18Disp: 30 tabletRfl: 0 Prescriptions as of 06/07/2018 Sig: ALLOPURINOL 100 MG TABLET Take 2 tablets by mouth once * HYDROCODONE 5 MG-ACETAMINOPHE* Take 1 tablet by mouth every * TADALAFIL 20 MG TABLET Take as directed prn. OMEPRAZOLE 40 MG CAPSULE,DANIELITO* 40mg by mouth daily TAMSULOSIN 0.4 MG CAPSULE TAKE ONE CAPSULE BY MOUTH AT * CYANOCOBALAMIN (VIT B-12) 1,0* 1000 mcg by mouth weekly Patient not taking: Reported on 04/26/2018 PSEUDOEPHEDRINE-GUAIFENESIN E* Take 1 tablet by mouth every * CHOLECALCIFEROL (VITAMIN D3) * Take 1 tablet by mouth once d* DAILY VITAMIN TABLET Take one(1) tablet daily BY M* Problem List As Of Date 06/07/2018 Noted Resolved BENIGN HYPERTENSION [I10] 11/24/2014 Hyperlipidemia LDL goal <100 [E78.5] Inflamed seborrheic keratosis [L82.0] INVALID FOR*11/07/2014 Viral warts, unspecified [B07.9] INVALID FOR*11/07/2014 SOLAR LENGINES [L81.9] INVALID FOR*11/07/2014 XEROSIS [L73.8] INVALID FOR*11/07/2014 Other chronic dermatitis due to solar radiation*INVALID FOR*11/07/2014 CA IN SITU COLON [D01.0] INVALID FOR* BENIGN NEOPLASM LG BOWEL [D12.6] INVALID FOR* OTHER PSORIASIS [L40.8] INVALID FOR* Lipoma of unspecified site [D17.9] INVALID FOR*11/07/2014 AAA (abdominal aortic aneurysm) (HCC) [I71.4] INVALID FOR* More... 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] INVALID FOR* Prescriptions ordered this encounter Disp Refills Start End ALLOPURINOL 100 MG TABLET 60 t* 11 06/07/2018 Route: ORAL Sig: Take 2 tablets by mouth once daily. For gout. HYDROCODONE 5 MG-ACETAMINOPHEN 325 M* 30 t* 0 06/07/2018 07/07/2018 Class: Print RX Route: ORAL Sig: Take 1 tablet by mouth every 6 hours as needed for Pain (or esophageal spasm) for up to 30 days. Earliest Fill Date: 06/07/18 Medications Discontinued During This Encounter allopurinol (ZYLOPRIM) 300 mg tablet 30 t* 11 05/04/2018 06/07/2018 Route: ORAL Sig: Take 1 tablet by mouth once daily. For gout. Disc: Dosage adjustment HYDROcodone-acetaminophen (NORCO) 5-* 30 t* 0 04/24/2018 06/07/2018 Class: Print RX Route: ORAL Sig: Take 1 tablet by mouth every 6 hours as needed for Pain (or esophageal spasm) for up to 30 days. Earliest Fill Date: 04/24/18 Disc: Reason for discontinue is not on file. Encounter Status:Closed by PINKY MILLER on 06/07/18 PROGRESS Observed: 05/21/2018 Status: COMPLETED Source: [facility] 4:56 PM [facility] ID: [id number] Author: Kaela Winkler III Service: (none) Author Type: Physician Type: Progress Notes Filed: 05/21/2018 8:08 PM Note Text: SUBJECTIVE: This is a 82 year old male that is here today for 1. hyperlipidemia 2. elevated uric acid. 7.5, so allopurinal 300mg daily 3. 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 For gout. HYDROcodone-acetaminophen (NORCO) 5-325 mg per tablet Take 1 tablet by mouth every 6 hours as needed for Pain (or esophageal spasm) for up to 30 days.Earliest Fill Date: 04/24/18 tamsulosin ER (FLOMAX) 0.4 mg cp24 TAKE ONE CAPSULE BY MOUTH AT BEDTIME pseudoephedrine-guaiFENesin (MUCINEX D) 60-600 mg per tablet Take 1 tablet by mouth every 12 hours as needed for Cold/Allergy Symptoms. Cholecalciferol, Vitamin D3, 2,000 unit cap Take 1 tablet by mouth once daily. multivitamins(DAILY VITAMIN TAB) Take one(1) tablet daily BY MOUTH. cyanocobalamin (VITAMIN B-12) 1,000 mcg tab 1000 mcg by mouth weekly (Patient not taking: Reported on 04/26/2018 ) No current facility-administered medications on file prior to visit. FAMILY HISTORY Problem Relation Age of Onset - Colon Cancer Mother - Heart Father CHF,kidney failure - Heart Daughter Patent ductus arteriosus Social History Substance Use Topics - Smoking status: Former Smoker Years: 25.00 Types: Pipe Quit date: 08/14/2001 - Smokeless tobacco: Never Used - Alcohol use Yes Comment: 2 beers per month BP 108/62 (BP Site: Right Arm, BP Position: Sitting, BP Cuff Size: Large Adult) Pulse 64 Temp (!) 35.9 ?C (96.6 ?F) (Right Tympanic) Resp 18 Wt 74.9 kg (165 lb 3.2 oz) BMI 24.19 kg/m? . OBJECTIVE: APPEARANCE Well appearing, alert, in no acute distress, well-hydrated, well nourished. lab Results for FILIPPO CHACON ( ) as of 05/21/2018 16:58 Ref. Range 05/01/2018 13:21 Sodium Latest Ref Range: 136 - 144 mmol/L 141 Potassium Latest Ref Range: 3.7 - 5.1 mmol/L 4.2 Chloride Latest Ref Range: 97 - 105 mmol/L 106 (H) CO2 Latest Ref Range: 22 - 30 mmol/L 22 BUN Latest Ref Range: 9 - 24 mg/dL 16 Creatinine Latest Ref Range: 0.73 - 1.22 mg/dL 1.07 Glucose Latest Ref Range: 74 - 99 mg/dL 91 Protein, Total Latest Ref Range: 6.3 - 8.0 g/dL 6.8 Calcium Latest Ref Range: 8.5 - 10.2 mg/dL 9.1 Albumin Latest Ref Range: 3.9 - 4.9 g/dL 4.1 Bilirubin, Total Latest Ref Range: 0.2 - 1.3 mg/dL 0.9 Alkaline Phosphatase Latest Ref Range: 36 - 108 U/L 84 ALT Latest Ref Range: 10 - 54 U/L 18 AST Latest Ref Range: 14 - 40 U/L 26 Anion Gap Latest Ref Range: 9 - 18 mmol/L 13 Uric Acid Latest Ref Range: 4.0 - 8.1 mg/dL 7.5 eGFR- Unknown >60 eGFR-All Other Races Latest Units: . >60 Cholesterol, Total Latest Ref Range: <200 mg/dL 139 Triglyceride Latest Ref Range: <150 mg/dL 80 Fasting Time Latest Units: hrs 12 HDL Cholesterol Latest Ref Range: >39 mg/dL 57 LDL Cholesterol Latest Ref Range: <100 mg/dL 66 VLDL Cholesterol Latest Ref Range: <30 mg/dL 16 TC:HDL Ratio Latest Ref Range: <5.10 2.44 LDL:HDL Ratio Latest Ref Range: <2.54 1.16 Non HDL Cholesterol Latest Ref Range: <130 mg/dL 82 Vitamin D 25 Hydroxy Latest Ref Range: 31.0 - 80.0 ng/mL 25.5 (L) Hematocrit Latest Ref Range: 39.0 - 51.0 % 39.4 WBC Latest Ref Range: 3.70 - 11.00 k/uL 4.14 RBC Latest Ref Range: 4.20 - 6.00 m/uL 3.79 (L) Hemoglobin Latest Ref Range: 13.0 - 17.0 g/dL 12.5 (L) Platelet Count Latest Ref Range: 150 - 400 k/uL 201 MCV Latest Ref Range: 80.0 - 100.0 fL 104.0 (H) MCH Latest Ref Range: 26.0 - 34.0 pG 33.0 MCHC Latest Ref Range: 30.5 - 36.0 g/dL 31.7 MPV Latest Ref Range: 9.0 - 12.7 fL 10.8 RDW-CV Latest Ref Range: 11.5 - 15.0 % 15.4 (H) Neut% Latest Units: % 58.5 Abs Neut (ANC) Latest Ref Range: 1.45 - 7.50 k/uL 2.41 Lymph% Latest Units: % 30.7 Abs Lymph Latest Ref Range: 1.00 - 4.00 k/uL 1.27 [place]hire% Latest Units: % 6.5 Abs [place] Latest Ref Range: <0.87 k/uL 0.27 Eosin% Latest Units: % 3.1 Abs Eosin Latest Ref Range: <0.46 k/uL 0.13 Baso% Latest Units: % 1.2 Abs Baso Latest Ref Range: <0.11 k/uL 0.05 Nucleated Reds Latest Ref Range: 0 /100 WBC 0.0 Absolute nRBC Latest Ref Range: <0.01 k/uL <0.01 Diff Type Unknown Auto Diff ASSESSMENT: History of adenocarcinoma of the stomach, stage IB--in remission Hyperuricemia?no active gout PLAN: healthy diet and stay active same medications check uric acid in July flu shot given Kaela Winkler III MD PROGRESS Observed: 05/21/2018 Status: COMPLETED Source: [facility] 4:36 PM [facility] O ID: [id number] Author: Amanda Harrington LPN Service: (none) Author Type: (none) Type: Progress Notes Filed: 05/21/2018 8:08 PM Note Text: 82 year old male here for INACTIVATED INFLUENZA VACCINE. [id number] Season Patient is identified by name and date of : Yes [] CONTRAINDICATIONS color enhanced section Age less than 6 months? No Allergy to eggs, chicken, chicken feathers, or chicken dander? No Allergy to thimerosal (a preservative) or formaldehyde, gelatin? No History of severe reaction to any vaccine component or a previous dose of influenza vaccination? No History of Guillain-Vinton Syndrome within 6 weeks after a previous influenza vaccine? No Patient is not moderately or severely ill? No Current temperature greater or equal to 100.4F? No History of Bone Marrow Transplant prior 6 months or solid organ transplant in the past 3 months ? No History of fainting after a prior injection or medical procedure? No- ? If patient has fainted in the past, the CDC recommends sitting or lying down for 15 minutes after the vaccination. [] VERIFICATION color enhanced section Was the answer Yes for any of the above contraindications? No contraindications present. Acceptable to proceed with vaccine. Patient/guardian agrees the above answers are true to the best of their knowledge? Yes Flu vaccine information sheet given? Yes See immunization activity in [facility] for details of immunizations adminstered today. Patient age: [age] year old For The 0178-6768 Flu Season 6-35 months old: Fluzone 0.25 ml - IM (Preservative Free) 3 years of age: Fluzone 0.5 ml - IM (Preservative Free) 3 years and older: Fluzone 0.5 ml- IM-(with Preservatives) 65+ years old: 2-49 years old Fluzone High-Dose 0.5 ml - IM (Preservative Free) FLUMIST- intranasal REMEMBER: If patient is less than 9 years of age and this is the first vaccine of Influenza to be received in any flu season, they should receive a second dose in one months time. CNOV Observed: 05/21/2018 Status: COMPLETED Source: [place] 4:20 PM [facility] REPOSITORY Office Visit (FAMPWS) FILIPPO CHACON ([id number]) 1935 M Date Time Provider Department 05/21/18 4:20 PM CEBUL III, KAELA A FAMPWS During your visit today, we recorded the following information about you: Temperature Pulse Respiration Blood pressure 96.6 degrees 64/minute 18/minute 108/62 Weight 74.9 kg Amanda Harrington NIHARIKA 05/21/2018 8:08 PM Signed 82 year old male here for INACTIVATED INFLUENZA VACCINE. Season Patient is identified by name and date of : Yes [] CONTRAINDICATIONS color enhanced section Age less than 6 months? No Allergy to eggs, chicken, chicken feathers, or chicken dander? No Allergy to thimerosal (a preservative) or formaldehyde, gelatin? No History of severe reaction to any vaccine component or a previous dose of influenza vaccination? No History of Guillain-Vinton Syndrome within 6 weeks after a previous influenza vaccine? No Patient is not moderately or severely ill? No Current temperature greater or equal to 100.4F? No History of Bone Marrow Transplant prior 6 months or solid organ transplant in the past 3 months ? No History of fainting after a prior injection or medical procedure? No- ? If patient has fainted in the past, the CDC recommends sitting or lying down for 15 minutes after the vaccination. [] VERIFICATION color enhanced section Was the answer Yes for any of the above contraindications? No contraindications present. Acceptable to proceed with vaccine. Patient/guardian agrees the above answers are true to the best of their knowledge? Yes Flu vaccine information sheet given? Yes See immunization activity in [facility] for details of immunizations adminstered today. Patient age: [age] year old For The Flu Season 6-35 months old: Fluzone 0.25 ml - IM (Preservative Free) 3 years of age: Fluzone 0.5 ml - IM (Preservative Free) 3 years and older: Fluzone 0.5 ml- IM-(with Preservatives) 65+ years old: 2-49 years old Fluzone High-Dose 0.5 ml - IM (Preservative Free) FLUMIST- intranasal REMEMBER: If patient is less than 9 years of age and this is the first vaccine of Influenza to be received in any flu season, they should receive a second dose in one months time. Kaela Winkler III MD 05/21/2018 8:08 PM Signed SUBJECTIVE: This is a 82 year old male that is here today for 1. hyperlipidemia 2. elevated uric acid. 7.5, so allopurinal 300mg daily 3. 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 For gout. HYDROcodone-acetaminophen (NORCO) 5-325 mg per tablet Take 1 tablet by mouth every 6 hours as needed for Pain (or esophageal spasm) for up to 30 days.Earliest Fill Date: 04/24/18 tamsulosin ER (FLOMAX) 0.4 mg cp24 TAKE ONE CAPSULE BY MOUTH AT BEDTIME pseudoephedrine-guaiFENesin (MUCINEX D) 60-600 mg per tablet Take 1 tablet by mouth every 12 hours as needed for Cold/Allergy Symptoms. Cholecalciferol, Vitamin D3, 2,000 unit cap Take 1 tablet by mouth once daily. multivitamins(DAILY VITAMIN TAB) Take one(1) tablet daily BY MOUTH. cyanocobalamin (VITAMIN B-12) 1,000 mcg tab 1000 mcg by mouth weekly (Patient not taking: Reported on 04/26/2018 ) No current facility-administered medications on file prior to visit. FAMILY HISTORY Problem Relation Age of Onset - Colon Cancer Mother - Heart Father CHF,kidney failure - Heart Daughter Patent ductus arteriosus Social History Substance Use Topics - Smoking status: Former Smoker Years: 25.00 Types: Pipe Quit date: 08/14/2001 - Smokeless tobacco: Never Used - Alcohol use Yes Comment: 2 beers per month BP 108/62 (BP Site: Right Arm, BP Position: Sitting, BP Cuff Size: Large Adult) Pulse 64 Temp (!) 35.9 ?C (96.6 ?F) (Right Tympanic) Resp 18 Wt 74.9 kg (165 lb 3.2 oz) BMI 24.19 kg/m? . OBJECTIVE: APPEARANCE Well appearing, alert, in no acute distress, well- hydrated, well nourished. lab Results for FILIPPO CHACON ( ) as of 05/21/2018 16:58 Ref. Range 05/01/2018 13:21 Sodium Latest Ref Range: 136 - 144 mmol/L 141 Potassium Latest Ref Range: 3.7 - 5.1 mmol/L 4.2 Chloride Latest Ref Range: 97 - 105 mmol/L 106 (H) CO2 Latest Ref Range: 22 - 30 mmol/L 22 BUN Latest Ref Range: 9 - 24 mg/dL 16 Creatinine Latest Ref Range: 0.73 - 1.22 mg/dL 1.07 Glucose Latest Ref Range: 74 - 99 mg/dL 91 Protein, Total Latest Ref Range: 6.3 - 8.0 g/dL 6.8 Calcium Latest Ref Range: 8.5 - 10.2 mg/dL 9.1 Albumin Latest Ref Range: 3.9 - 4.9 g/dL 4.1 Bilirubin, Total Latest Ref Range: 0.2 - 1.3 mg/dL 0.9 Alkaline Phosphatase Latest Ref Range: 36 - 108 U/L 84 ALT Latest Ref Range: 10 - 54 U/L 18 AST Latest Ref Range: 14 - 40 U/L 26 Anion Gap Latest Ref Range: 9 - 18 mmol/L 13 Uric Acid Latest Ref Range: 4.0 - 8.1 mg/dL 7.5 eGFR- Unknown >60 eGFR-All Other Races Latest Units: . >60 Cholesterol, Total Latest Ref Range: <200 mg/dL 139 Triglyceride Latest Ref Range: <150 mg/dL 80 Fasting Time Latest Units: hrs 12 HDL Cholesterol Latest Ref Range: >39 mg/dL 57 LDL Cholesterol Latest Ref Range: <100 mg/dL 66 VLDL Cholesterol Latest Ref Range: <30 mg/dL 16 TC:HDL Ratio Latest Ref Range: <5.10 2.44 LDL:HDL Ratio Latest Ref Range: <2.54 1.16 Non HDL Cholesterol Latest Ref Range: <130 mg/dL 82 Vitamin D 25 Hydroxy Latest Ref Range: 31.0 - 80.0 ng/mL 25.5 (L) Hematocrit Latest Ref Range: 39.0 - 51.0 % 39.4 WBC Latest Ref Range: 3.70 - 11.00 k/uL 4.14 RBC Latest Ref Range: 4.20 - 6.00 m/uL 3.79 (L) Hemoglobin Latest Ref Range: 13.0 - 17.0 g/dL 12.5 (L) Platelet Count Latest Ref Range: 150 - 400 k/uL 201 MCV Latest Ref Range: 80.0 - 100.0 fL 104.0 (H) MCH Latest Ref Range: 26.0 - 34.0 pG 33.0 MCHC Latest Ref Range: 30.5 - 36.0 g/dL 31.7 MPV Latest Ref Range: 9.0 - 12.7 fL 10.8 RDW-CV Latest Ref Range: 11.5 - 15.0 % 15.4 (H) Neut% Latest Units: % 58.5 Abs Neut (ANC) Latest Ref Range: 1.45 - 7.50 k/uL 2.41 Lymph% Latest Units: % 30.7 Abs Lymph Latest Ref Range: 1.00 - 4.00 k/uL 1.27 [place]% Latest Units: % 6.5 Abs [place] Latest Ref Range: <0.87 k/uL 0.27 Eosin% Latest Units: % 3.1 Abs Eosin Latest Ref Range: <0.46 k/uL 0.13 Baso% Latest Units: % 1.2 Abs Baso Latest Ref Range: <0.11 k/uL 0.05 Nucleated Reds Latest Ref Range: 0 /100 WBC 0.0 Absolute nRBC Latest Ref Range: <0.01 k/uL <0.01 Diff Type Unknown Auto Diff ASSESSMENT: History of adenocarcinoma of the stomach, stage IB--in remission Hyperuricemia?no active gout PLAN: healthy diet and stay active same medications check uric acid in July flu shot given CHAYO Hicks MD, III MD 05/21/2018 5:03 PM Signed PLAN: healthy diet and stay active same medications check uric acid in July flu shot given Kaela Winkler III MD Referring Provider: SELF [[id number]] Allergies As of Date: 05/21/2018 Noted Allergy Reaction CORTISONE 10/18/2010 4 - Hives ADHESIVE TAPE (ROSINS) 04/21/2006 PENICILLINS 04/21/2006 2 - Rash ZOCOR (SIMVASTATIN) 04/05/2013 14 - Other: See Comments Comments: myalgia Date Reviewed: 05/21/2018 Reviewed by: Amanda Harrington LPN - Fully Assessed Reason for Visit: Recheck [92] Cmt: follow up labs Imm/Inj [58] Cmt: Flu Vaccine Reason For Visit History Recorded Primary Visit Diagnosis:Hyperuricemia [E79.0] Other Visit Diagnoses:Need for vaccination [Z23] S/P gastrectomy [Z90.3] 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] Order(s):INFLUENZA SEASONAL HIGH DOSE AGE 65+ [[id number]] Order #: [id number] Tadalafil (CIALIS) 20 mg tab(s)Take as directed prn.Disp: 3 tabletRfl: 11 Prescriptions as of 05/21/2018 Sig: OMEPRAZOLE 40 MG CAPSULE,DANIELITO* 40mg by mouth daily ALLOPURINOL 300 MG TABLET Take 1 tablet by mouth once d* HYDROCODONE 5 MG-ACETAMINOPHE* Take 1 tablet by mouth every * TAMSULOSIN 0.4 MG CAPSULE TAKE ONE CAPSULE BY MOUTH AT * PSEUDOEPHEDRINE-GUAIFENESIN E* Take 1 tablet by mouth every * CHOLECALCIFEROL (VITAMIN D3) * Take 1 tablet by mouth once d* DAILY VITAMIN TABLET Take one(1) tablet daily BY M* TADALAFIL 20 MG TABLET Take as directed prn. CYANOCOBALAMIN (VIT B-12) 1,0* 1000 mcg by mouth weekly Patient not taking: Reported on 04/26/2018 Problem List As Of Date 05/21/2018 Noted Resolved BENIGN HYPERTENSION [I10] 11/24/2014 Hyperlipidemia LDL goal <100 [E78.5] Inflamed seborrheic keratosis [L82.0] INVALID FOR*11/07/2014 Viral warts, unspecified [B07.9] INVALID FOR*11/07/2014 SOLAR LENGINES [L81.9] INVALID FOR*11/07/2014 XEROSIS [L73.8] INVALID FOR*11/07/2014 Other chronic dermatitis due to solar radiation*INVALID FOR*11/07/2014 CA IN SITU COLON [D01.0] INVALID FOR* BENIGN NEOPLASM LG BOWEL [D12.6] INVALID FOR* OTHER PSORIASIS [L40.8] INVALID FOR* Lipoma of unspecified site [D17.9] INVALID FOR*11/07/2014 AAA (abdominal aortic aneurysm) (HCC) [I71.4] INVALID FOR* More... 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 Intractable vomiting with nausea [R11.2] INVALID FOR*11/24/2015 Macrocytic anemia with vitamin B12 deficiency [*INVALID FOR* Renal stones [N20.0] INVALID FOR* Chronic prescription opiate use [Z79.891] INVALID FOR* Campylobacter enteritis [A04.5] INVALID FOR* Rotator cuff syndrome of left shoulder [M75.102]INVALID FOR*01/11/2018 Gastroesophageal reflux disease [K21.9] INVALID FOR* Other instructions from your clinician: PLAN: healthy diet and stay active same medications check uric acid in July flu shot given Kaela Winkler III MD Prescriptions ordered this encounter Disp Refills Start End TADALAFIL 20 MG TABLET 3 ta* 11 05/21/2018 Sig: Take as directed prn. Encounter Status:Closed by KAELA WINKLER III, MD on 05/21/18 PROGRESS Observed: 05/17/2018 Status: COMPLETED Source: [place] 3:24 PM [facility] REPOSITORY HNO ID: [id number] Author: Paul Vance (Rn) Service: (none) Author Type: Registered Nurse Type: Progress Notes Filed: 05/17/2018 3:42 PM Note Text: PRIMARY CARE COORDINATION FOLLOW-UP NOTE Provider Action/FYI 1. Spouse called for PCP Appt for review of Labs (completed 05/01/18), fatigue and occasional vomiting, wt 160-165 Lbs, requested Influenza at OV 2. Scheduled Pcp Appt 05/21/18 Patient identified by name and date of . YES Spoke to spouse Signature Pinky Miller RN May 17, 2018 CNPTOUTREACH Observed: 05/17/2018 Status: COMPLETED Source: [place] 12:00 AM [facility] REPOSITORY Patient Outreach (FAMPLB) FILIPPO CHACON ([id number]) 1935 M Date Time Provider Department 05/17/18 PAUL VANCE (RN) FAMPLB During your visit today, we recorded the following information about you: Pinky Miller RN 05/17/2018 3:42 PM Signed PRIMARY CARE COORDINATION FOLLOW-UP NOTE Provider Action/FYI 1. Spouse called for PCP Appt for review of Labs (completed 05/01/18), fatigue and occasional vomiting, wt 160-165 Lbs, requested Influenza at OV 2. Scheduled Pcp Appt 05/21/18 Patient identified by name and date of . YES Spoke to spouse Signature Pinky Miller RN May 17, 2018 Allergies As of Date: 05/17/2018 Noted Allergy Reaction CORTISONE 10/18/2010 4 - Hives ADHESIVE TAPE (ROSINS) 04/21/2006 PENICILLINS 04/21/2006 2 - Rash ZOCOR (SIMVASTATIN) 04/05/2013 14 - Other: See Comments Comments: myalgia Date Reviewed: 04/26/2018 Reviewed by: Amanda Harrington LPN - Fully Assessed Reason for Visit: It Security Consulting Director - Patient Initiated [[id number]] Cmt: Lab Review / Fatigue/ Influenza Reason For Visit History Recorded Prescriptions as of 05/17/2018 Sig: OMEPRAZOLE 40 MG CAPSULE,DANIELITO* 40mg by mouth daily ALLOPURINOL 300 MG TABLET Take 1 tablet by mouth once d* HYDROCODONE 5 MG-ACETAMINOPHE* Take 1 tablet by mouth every * TAMSULOSIN 0.4 MG CAPSULE TAKE ONE CAPSULE BY MOUTH AT * CYANOCOBALAMIN (VIT B-12) 1,0* 1000 mcg by mouth weekly Patient not taking: Reported on 04/26/2018 PSEUDOEPHEDRINE-GUAIFENESIN E* Take 1 tablet by mouth every * CHOLECALCIFEROL (VITAMIN D3) * Take 1 tablet by mouth once d* DAILY VITAMIN TABLET Take one(1) tablet daily BY M* Problem List As Of Date 05/17/2018 Noted Resolved BENIGN HYPERTENSION [I10] 11/24/2014 Hyperlipidemia LDL goal <100 [E78.5] Inflamed seborrheic keratosis [L82.0] INVALID FOR*11/07/2014 Viral warts, unspecified [B07.9] INVALID FOR*11/07/2014 SOLAR LENGINES [L81.9] INVALID FOR*11/07/2014 XEROSIS [L73.8] INVALID FOR*11/07/2014 Other chronic dermatitis due to solar radiation*INVALID FOR*11/07/2014 CA IN SITU COLON [D01.0] INVALID FOR* BENIGN NEOPLASM LG BOWEL [D12.6] INVALID FOR* OTHER PSORIASIS [L40.8] INVALID FOR* Lipoma of unspecified site [D17.9] INVALID FOR*11/07/2014 AAA (abdominal aortic aneurysm) (HCC) [I71.4] INVALID FOR* More... 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 Intractable vomiting with nausea [R11.2] INVALID FOR*11/24/2015 Macrocytic anemia with vitamin B12 deficiency [*INVALID FOR* Renal stones [N20.0] INVALID FOR* Chronic prescription opiate use [Z79.891] INVALID FOR* Campylobacter enteritis [A04.5] INVALID FOR* Rotator cuff syndrome of left shoulder [M75.102]INVALID FOR*01/11/2018 Gastroesophageal reflux disease [K21.9] INVALID FOR* Encounter Status:Closed by PINKY MILLER on 05/17/18 PROGRESS Observed: 05/09/2018 Status: COMPLETED Source: [place] 1:10 PM [facility] REPOSITORY HNO ID: [id number] Author: Paul Vance (Rn) Service: (none) Author Type: Registered Nurse Type: Progress Notes Filed: 05/09/2018 1:15 PM Note Text: PRIMARY CARE COORDINATION FOLLOW-UP NOTE Provider Action/FYI Call to Pt left a vm notified Prilosec refill sent to [facility] Patient identified by name and date of . YES Signature Pinky Miller RN May 09, 2018 PROGRESS Observed: 05/08/2018 Status: COMPLETED Source: [place] 1:25 PM [facility] REPOSITORY HNO ID: [id number] Author: Paul Vance (Rn) Service: (none) Author Type: Registered Nurse Type: Progress Notes Filed: 05/09/2018 1:15 PM Note Text: PRIMARY CARE COORDINATION FOLLOW-UP NOTE Provider Action/FYI Call from Pt requested a refill of Prilosec- please send to [facility]. Patient identified by name and date of . YES Spoke to patient Thank You, Nata Miller RN May 08, 2018 CNPTOUTREACH Observed: 05/08/2018 Status: COMPLETED Source: [place] 12:00 AM [facility] REPOSITORY Patient Outreach (FAMPWS) FILIPPO CHACON ([id number]) 1935 Date Time Provider Department 05/08/18 PAUL VANCE (RN) FAMPWS During your visit today, we recorded the following information about you: Pinky Miller RN 05/09/2018 1:15 PM Signed PRIMARY CARE COORDINATION FOLLOW-UP NOTE Provider Action/FYI Call from Pt requested a refill of Prilosec- please send to [facility] [place]. Patient identified by name and date of . YES Spoke to patient Thank You, Nata Miller RN May 08, 2018 Pinky Miller RN 05/09/2018 1:15 PM Signed PRIMARY CARE COORDINATION FOLLOW-UP NOTE Provider Action/FYI Call to Pt left a vm notified Prilosec refill sent to [facility] Patient identified by name and date of . YES Nata Miller RN May 09, 2018 Allergies As of Date: 05/08/2018 Noted Allergy Reaction CORTISONE 10/18/2010 4 - Hives ADHESIVE TAPE (ROSINS) 04/21/2006 PENICILLINS 04/21/2006 2 - Rash ZOCOR (SIMVASTATIN) 04/05/2013 14 - Other: See Comments Comments: myalgia Date Reviewed: 04/26/2018 Reviewed by: Amanda Harrington LPN - Fully Assessed Reason for Visit: It Security Consulting Director Chronic Care [361] Cmt: Refil request Order(s):Omeprazole (PRILOSEC) 40 mg [id number] by mouth dailyDisp: 30 capsuleRfl: 11 Prescriptions as of 05/08/2018 Sig: OMEPRAZOLE 40 MG CAPSULE,DANIELITO* 40mg by mouth daily ALLOPURINOL 300 MG TABLET Take 1 tablet by mouth once d* HYDROCODONE 5 MG-ACETAMINOPHE* Take 1 tablet by mouth every * TAMSULOSIN 0.4 MG CAPSULE TAKE ONE CAPSULE BY MOUTH AT * CYANOCOBALAMIN (VIT B-12) 1,0* 1000 mcg by mouth weekly Patient not taking: Reported on 04/26/2018 PSEUDOEPHEDRINE-GUAIFENESIN E* Take 1 tablet by mouth every * CHOLECALCIFEROL (VITAMIN D3) * Take 1 tablet by mouth once d* DAILY VITAMIN TABLET Take one(1) tablet daily BY M* Problem List As Of Date 05/08/2018 Noted Resolved BENIGN HYPERTENSION [I10] 11/24/2014 Hyperlipidemia LDL goal <100 [E78.5] Inflamed seborrheic keratosis [L82.0] INVALID FOR*11/07/2014 Viral warts, unspecified [B07.9] INVALID FOR*11/07/2014 SOLAR LENGINES [L81.9] INVALID FOR*11/07/2014 XEROSIS [L73.8] INVALID FOR*11/07/2014 Other chronic dermatitis due to solar radiation*INVALID FOR*11/07/2014 CA IN SITU COLON [D01.0] INVALID FOR* BENIGN NEOPLASM LG BOWEL [D12.6] INVALID FOR* OTHER PSORIASIS [L40.8] INVALID FOR* Lipoma of unspecified site [D17.9] INVALID FOR*11/07/2014 AAA (abdominal aortic aneurysm) (HCC) [I71.4] INVALID FOR* More... 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 Intractable vomiting with nausea [R11.2] INVALID FOR*11/24/2015 Macrocytic anemia with vitamin B12 deficiency [*INVALID FOR* Renal stones [N20.0] INVALID FOR* Chronic prescription opiate use [Z79.891] INVALID FOR* Campylobacter enteritis [A04.5] INVALID FOR* Rotator cuff syndrome of left shoulder [M75.102]INVALID FOR*01/11/2018 Gastroesophageal reflux disease [K21.9] INVALID FOR* Prescriptions ordered this encounter Disp Refills Start End OMEPRAZOLE 40 MG CAPSULE,DELAYED REL* 30 c* 11 05/08/2018 Simg by mouth daily Medications Discontinued During This Encounter Omeprazole (PRILOSEC) 40 mg capsule 30 c* 11 04/24/2017 05/08/2018 Simg by mouth daily Disc: Reason for discontinue is not on file. Encounter Status:Closed by PINKY MILLER on 05/09/18 PROGRESS Observed: 05/04/2018 Status: COMPLETED Source: F[place] 7:06 PM [facility] REPOSITORY HNO ID: [id number] Author: Kaela Winkler III Service: (none) Author Type: Physician Type: Progress Notes Filed: 05/04/2018 7:06 PM Note Text: Filippo, The uric acid level is too high. I recommend increasing allopurinol from 100 mg daily to 300 mg daily. A prescription for the higher dose will be sent to the local pharmacy. Recheck uric acid level in 3 months. Kaela PRINCE Observed: 05/04/2018 Status: COMPLETED Source: FRE[place] 12:00 AM [facility] REPOSITORY Letter Text Kaela Adamson M.D. [address] [address] Filippopraneeth Chacon [address] [place] [address] #: [id number] 05/04/2018 Dear Mr. Chacon, I have received the results of your recent tests. The uric acid level is too high. ?I recommend increasing allopurinol from 100 mg daily to 300 mg daily. ?A prescription for the higher dose will be sent to the local pharmacy. ?Recheck uric acid level in 3 months. We can discuss this at your next visit. Please do not hesitate to contact me with any questions. Sincerely, Kaela Adamson M.D. electronically signed to expedite mailing CBC AND DIFFERENTIAL Collected: 05/01/2018 Status: F Source: FREER 1:21 PM [facility] REPOSITORY TYPE CODE TESTS RESULT OUT OF REFERENCE UNITS RANGE LAB WBC 3.70-11.00 k/uL WBC 4.14 LAB RBC 4.20-6.00 m/uL Low RBC 3.79 LAB HGB 13.0-17.0 g/dL Low Hemoglobin 12.5 LAB HCT 39.0-51.0 % Hematocrit 39.4 LAB MCV 80.0-100.0 fL MCV High 104.0 LAB MCH 26.0-34.0 pG MCH 33.0 LAB MCHC 30.5-36.0 g/dL MCHC 31.7 LAB RDWCV 11.5-15.0 % RDW-CV High 15.4 LAB PLTCT 150-400 k/uL Platelet Count 201 LAB MPV 9.0-12.7 fL MPV 10.8 LAB ANEUT % Neut% 58.5 LAB AANEUT 1.45-7.50 k/uL Abs Neut 2.41 LAB ALYMP % Lymph% 30.7 LAB AALYMP 1.00-4.00 k/uL Abs Lymph 1.27 LAB AMONO % [place]% 6.5 LAB AAMONO <0.87 k/uL Abs [place] 0.27 LAB AEOS % Eosin% 3.1 LAB AAEOS <0.46 k/uL Abs Eosin 0.13 LAB ABASO % Baso% 1.2 LAB AABASO <0.11 k/uL Abs Baso 0.05 LAB AUNRBC 0 /100 WBC NRBCs 0.0 LAB ABNRBC <0.01 k/uL Absolute nRBC <0.01 LAB DTYP DTYPE Auto Diff Performed By: #### CBCDIF, CMP, LIPB, URIC, VITD #### [facility] [address] [place], [place] [address] COMP METABOLIC PANEL Collected: 05/01/2018 Status: F Source: FREER 1:21 PM [facility] REPOSITORY TYPE CODE TESTS RESULT OUT OF REFERENCE UNITS RANGE LAB TP 6.3-8.0 g/dL Protein, Total 6.8 LAB ALB 3.9-4.9 g/dL Albumin 4.1 LAB CA 8.5-10.2 mg/dL Calcium, Total 9.1 LAB TBIL 0.2-1.3 mg/dL Bilirubin, Total 0.9 LAB ALKP 36-108 U/L Alkaline Phosphatase 84 LAB AST 14-40 U/L AST 26 LAB GLU 74-99 mg/dL Glucose 91 Result Comment: The [place] Diabetes Association (ADA) provides guidance for cutoff values for fasting glucose and random glucose. The ADA defines fasting as no caloric intake for at least 8 hours. Fas ting plasma glucose results between 100 to 125 mg/dL indicate increased risk for diabetes (prediabetes). Fasting plasma glucose results greater than or equal to 126 mg/dL meet the criteria for diagnosis of diabetes. In the absence of unequivocal hyperglycemia, results should be confirmed by repeat testing. In a patient with classic symptoms of hyperglycemia or hyperglycemic crisis, random plasma glucose results greater than or equal to 200 mg/dL meet the criteria for diagnosis of diabetes. Reference: Standards of Medical Care in Diabetes 2016, [place] Diabetes Association. Diabetes Care. 2016.39(Suppl 1). LAB BUN 9-24 mg/dL BUN 16 LAB CRET 0.73-1.22 mg/dL Creatinine 1.07 LAB NA 136-144 mmol/L Sodium 141 LAB K 3.7-5.1 mmol/L Potassium 4.2 LAB CL 97-105 mmol/L Chloride High 106 LAB CO2 22-30 mmol/L CO2 22 LAB AGAP 9-18 mmol/L Anion Gap 13 LAB ALT 10-54 U/L ALT 18 LAB GFRAA eGFR- Amer. >60 LAB GFRNAA . eGFR-All Other Races >60 Result Comment: eGFR (Estimated GFR) Units of measure: mL/min/1.73 meters squared eGFR is derived from the reexpressed MDRD Study equation using the following parameters: serum creatinine, age, gender and race. The creatinine assay has been calibrated to be traceable to IDMS. An eGFR <60 mL/min/1.73m2 for >3 months is consistent with chronic kidney disease. Refer to KDOQI guidelines for clinical interpretation. In patients with unstable renal function, e.g. those with acute kidney injury, the eGFR may not accurately reflect actual GFR. Performed By: #### CBCDIF, CMP, LIPB, URIC, VITD #### [facility] [address] [place], [place] [address] LIPID PANEL, BASIC Collected: 05/01/2018 Status: F Source: FREER 1:21 PM [facility] REPOSITORY TYPE CODE TESTS RESULT OUT OF REFERENCE UNITS RANGE LAB CHOL <200 mg/dL Cholesterol 139 Result Comment: <200 mg/dL, Desirable 200-239 mg/dL, Borderline high >239 mg/dL, High LAB TRIGLY <150 mg/dL Triglyceride 80 Result Comment: <150 mg/dL, Normal 150-199 mg/dL, Borderline high 200-499 mg/dL, High >499 mg/dL, Very high LAB HDL >39 mg/dL HDL-Cholesterol 57 Result Comment: 40-59 mg/dL, Acceptable >59 mg/dL, High: Negative risk factor for coronary heart disease <40 mg/dL, Low: Positive risk factor for coronary heart disease LAB LDL <100 mg/dL LDL-Cholesterol 66 Result Comment: <100 mg/dL, Optimal 100-129 mg/dL, Near optimal/above optimal 130-159 mg/dL, Borderline high 160-189 mg/dL, High >189 mg/dL, Very high Secondary prevention optimal LDL Cholesterol levels are recommended to be < 70 mg/dL LAB NONHDL <130 mg/dL Non HDL Cholesterol 82 Result Comment: <130 mg/dL, Optimal 130-159 mg/dL, Near optimal/above optimal 160-189 mg/dL, Borderline high 190-219 mg/dL, High >219 mg/dL, Very high Secondary prevention optimal non HDL Cholesterol levels are recommended to be < 100 mg/dL LAB FT hrs Fasting Time 12 LAB VLDL <30 mg/dL VLDL Cholesterol 16 LAB TCHDL <5.10 TC:HDL Ratio 2.44 LAB LDLHDL <2.54 LDL:HDL Ratio 1.16 Result Comment: Reference: 1. National Cholesterol Education Program ATP III Guideline At-A-Glance Quick Desk Reference: National Heart, Lung, and Blood Entiat. National Institutes of Health. 2001: NIH Publication No. 01-3305. 2. An International Atherosclerosis Society position paper: global recommendations for the management of dyslipidemia: executive summary, Atherosclerosis. 2014: 232(2):410-413. Performed By: #### CBCDIF, CMP, LIPB, URIC, VITD #### [facility] [facility] [address] [address] URIC ACID Collected: 05/01/2018 Status: F Source: FREER 1:21 PM [facility] REPOSITORY TYPE CODE TESTS RESULT OUT OF RANGE REFERENCE UNITS LAB URIC 4.0-8.1 mg/dL Uric Acid 7.5 Performed By: #### CBCDIF, CMP, LIPB, URIC, VITD #### [facility] [facility] [address] [id number] VITAMIN D 25 HYDROXY Collected: 05/01/2018 Status: F Source: FREER 1:21 PM [facility] REPOSITORY TYPE CODE TESTS RESULT OUT OF REFERENCE UNITS RANGE LAB VITD 31.0-80.0 ng/mL Low Vitamin D 25 25.5 Hydroxy Result Comment: Classification of 25 [place] Vitamin D status: Insufficiency/Moderate Deficiency: < or = 30 ng/mL Sufficiency/Optimal Levels: 31 to 80 ng/mL Toxicity: > 100 ng/mL Test performed by chemiluminescent immunoassay. Performed By: #### CBCDIF, CMP, LIPB, URIC, VITD #### [facility] [facility] [address] [id number] PROGRESS Observed: 04/26/2018 Status: COMPLETED Source: FREER 4:07 PM [facility] REPOSITORY HNO ID: [id number] Author: Kaela Winkler III Service: (none) Author Type: Physician Type: Progress Notes Filed: 04/26/2018 4:45 PM Note Text: SUBJECTIVE: This is a 82 year old male that is here today for Chronic Medical Conditions. 1. GERD--reflux is worsening and he seems to be clearing his throat from phlegm. Gets reflux 1-2 times/wk now; used to occur once every several mos. Using norco 1/day to ease reflux--wonders if he needs to take more doses of norco. 2. more fatigued--seems to need daytime nap. Stays up late in eves. Seems to awaken refreshed. Very active--has recently planted trees and bushes. Climbs steps multiple times/day w/o difficulty--no chest pain, angina, DON, cough, change in BM, rectal bleeding. Stable urine flow 3. known heart murmur--recent echocardiogram stable per Dr Moran.. 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 For gout. Omeprazole (PRILOSEC) 40 mg capsule 40mg by mouth daily pseudoephedrine-guaiFENesin (MUCINEX D) 60-600 mg per tablet Take 1 tablet by mouth every 12 hours as needed for Cold/Allergy Symptoms. Cholecalciferol, Vitamin D3, 2,000 unit cap Take 1 tablet by mouth once daily. multivitamins(DAILY VITAMIN TAB) Take one(1) tablet daily BY MOUTH. cyanocobalamin (VITAMIN B-12) 1,000 mcg tab 1000 mcg by mouth weekly (Patient not taking: Reported on 04/26/2018 ) No current facility-administered medications on file prior to visit. FAMILY HISTORY Problem Relation Age of Onset - Colon Cancer Mother - Heart Father CHF,kidney failure - Heart Daughter Patent ductus arteriosus Social History Substance Use Topics - Smoking status: Former Smoker Years: 25.00 Types: Pipe Quit date: 08/14/2001 - Smokeless tobacco: Never Used - Alcohol use Yes Comment: 2 beers per month BP 116/60 (BP Site: Left Arm, BP Position: Sitting, BP Cuff Size: Small Adult) Pulse 64 Resp 16 Wt 72.6 kg (160 lb) BMI 23.43 kg/m? OBJECTIVE: APPEARANCE Well appearing, alert, in no acute distress, well-hydrated, well nourished. NECK Supple, no adenopathy; thyroid symmetric, normal size, no bruits HEART RRR with normal S1 and S2, no gallops, no JVD appreciated and 3/6 sys murmur RSB ICS II, LSB ICS 2, apex LUNG clear to auscultation ABDOMEN soft, non-tender, non-distended, without organomegaly or palpable masses, no tenderness to palpation EXTREMITIES Extremities normal, No deformities, No skin discoloration, No edema and Normal pulses bilaterally. NEURO Awake, alert and oriented x 3, Normal gait and No involuntary motions. ASSESSMENT: gastric cancer--in remission fatigue due to heavy activity hyperlipidemia hyperuricemia PLAN: healthy diet and stay active labs as ordered same medications use norco sparingly as needed for esophageal pain/spasm Kaela Winkler III MD PDMP website checked and validated. All prescriptions have been APPROPRIATELY filled. No suspicious activity was identified. 04/26/2018 by CHAYO Hicks MD, III MD CNOV Observed: 04/26/2018 Status: COMPLETED Source: [address] [address]:00 PM [facility] REPOSITORY Office Visit (FAMPWS) FILIPPO CHACON ([id number]) 1935 M Date Time Provider Department 04/26/18 4:00 PM KAELA WINKLER III During your visit today, we recorded the following information about you: Pulse Respiration Blood pressure Weight 64/minute 16/minute 116/60 72.6 kg Kaela Winkler III MD 04/26/2018 4:45 PM Signed SUBJECTIVE: This is a 82 year old male that is here today for Chronic Medical Conditions. 1. GERD--reflux is worsening and he seems to be clearing his throat from phlegm. Gets reflux 1-2 times/wk now; used to occur once every several mos. Using norco 1/day to ease reflux--wonders if he needs to take more doses of norco. 2. more fatigued--seems to need daytime nap. Stays up late in eves. Seems to awaken refreshed. Very active--has recently planted trees and bushes. Climbs steps multiple times/day w/o difficulty--no chest pain, angina, DON, cough, change in BM, rectal bleeding. Stable urine flow 3. known heart murmur--recent echocardiogram stable per Dr Moran.. 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[facility]) - ASHD (arteriosclerotic heart disease) 07/11/05 coronary artery stent - Coronary stent 2000 [place], [place] - Essential hypertension, benign - Hyperuricemia 12/21/2011 - Kidney stone - Other and unspecified hyperlipidemia - Personal history of colonic polyps Colon polyps - Prostatitis, unspecified Prostatitis - 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 For gout. Omeprazole (PRILOSEC) 40 mg capsule 40mg by mouth daily pseudoephedrine-guaiFENesin (MUCINEX D) 60-600 mg per tablet Take 1 tablet by mouth every 12 hours as needed for Cold/Allergy Symptoms. Cholecalciferol, Vitamin D3, 2,000 unit cap Take 1 tablet by mouth once daily. multivitamins(DAILY VITAMIN TAB) Take one(1) tablet daily BY MOUTH. cyanocobalamin (VITAMIN B-12) 1,000 mcg tab 1000 mcg by mouth weekly (Patient not taking: Reported on 04/26/2018 ) No current facility-administered medications on file prior to visit. FAMILY HISTORY Problem Relation Age of Onset - Colon Cancer Mother - Heart Father CHF,kidney failure - Heart Daughter Patent ductus arteriosus Social History Substance Use Topics - Smoking status: Former Smoker Years: 25.00 Types: Pipe Quit date: 08/14/2001 - Smokeless tobacco: Never Used - Alcohol use Yes Comment: 2 beers per month BP 116/60 (BP Site: Left Arm, BP Position: Sitting, BP Cuff Size: Small Adult) Pulse 64 Resp 16 Wt 72.6 kg (160 lb) BMI 23.43 kg/m? OBJECTIVE: APPEARANCE Well appearing, alert, in no acute distress, well- hydrated, well nourished. NECK Supple, no adenopathy; thyroid symmetric, normal size, no bruits HEART RRR with normal S1 and S2, no gallops, no JVD appreciated and 3/6 sys murmur RSB ICS II, LSB ICS 2, apex LUNG clear to auscultation ABDOMEN soft, non-tender, non-distended, without organomegaly or palpable masses, no tenderness to palpation EXTREMITIES Extremities normal, No deformities, No skin discoloration, No edema and Normal pulses bilaterally. NEURO Awake, alert and oriented x 3, Normal gait and No involuntary motions. ASSESSMENT: gastric cancer--in remission fatigue due to heavy activity hyperlipidemia hyperuricemia PLAN: healthy diet and stay active labs as ordered same medications use norco sparingly as needed for esophageal pain/spasm Kaela Winkler III MD PDMP website checked and validated. All prescriptions have been APPROPRIATELY filled. No suspicious activity was identified. 04/26/2018 by CHAYO Hicks MD, III MD Referring Provider: SELF [[id number]] Allergies As of Date: 04/26/2018 Noted Allergy Reaction CORTISONE 10/18/2010 4 - Hives ADHESIVE TAPE (ROSINS) 04/21/2006 PENICILLINS 04/21/2006 2 - Rash ZOCOR (SIMVASTATIN) 04/05/2013 14 - Other: See Comments Comments: myalgia Date Reviewed: 04/26/2018 Reviewed by: Amanda Harrington LPN - Fully Assessed Reason for Visit: Abdominal Pain [1] Cmt: Symptoms getting worse Primary Visit Diagnosis:Gastroesophageal reflux disease, esophagitis presence not specified [K21.9] Other Visit Diagnoses:Hyperlipidemia LDL goal <100 [E78.5] 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] S/P gastrectomy [Z90.3] Chronic prescription opiate use [Z79.891] Fatigue, unspecified type [R53.83] Prescriptions as of 04/26/2018 Sig: HYDROCODONE 5 MG-ACETAMINOPHE* Take 1 tablet by mouth every * TAMSULOSIN 0.4 MG CAPSULE TAKE ONE CAPSULE BY MOUTH AT * ALLOPURINOL 100 MG TABLET Take 1 tablet by mouth once d* OMEPRAZOLE 40 MG CAPSULE,DANIELITO* 40mg by mouth daily PSEUDOEPHEDRINE-GUAIFENESIN E* Take 1 tablet by mouth every * CHOLECALCIFEROL (VITAMIN D3) * Take 1 tablet by mouth once d* DAILY VITAMIN TABLET Take one(1) tablet daily BY M* CYANOCOBALAMIN (VIT B-12) 1,0* 1000 mcg by mouth weekly Patient not taking: Reported on 04/26/2018 Problem List As Of Date 04/26/2018 Noted Resolved BENIGN HYPERTENSION [I10] 11/24/2014 Hyperlipidemia LDL goal <100 [E78.5] Inflamed seborrheic keratosis [L82.0] INVALID FOR*11/07/2014 Viral warts, unspecified [B07.9] INVALID FOR*11/07/2014 SOLAR LENGINES [L81.9] INVALID FOR*11/07/2014 XEROSIS [L73.8] INVALID FOR*11/07/2014 Other chronic dermatitis due to solar radiation*INVALID FOR*11/07/2014 CA IN SITU COLON [D01.0] INVALID FOR* BENIGN NEOPLASM LG BOWEL [D12.6] INVALID FOR* OTHER PSORIASIS [L40.8] INVALID FOR* Lipoma of unspecified site [D17.9] INVALID FOR*11/07/2014 AAA (abdominal aortic aneurysm) (HCC) [I71.4] INVALID FOR* More... 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 Intractable vomiting with nausea [R11.2] INVALID FOR*11/24/2015 Macrocytic anemia with vitamin B12 deficiency [*INVALID FOR* Renal stones [N20.0] INVALID FOR* Chronic prescription opiate use [Z79.891] INVALID FOR* Campylobacter enteritis [A04.5] INVALID FOR* Rotator cuff syndrome of left shoulder [M75.102]INVALID FOR*01/11/2018 Gastroesophageal reflux disease [K21.9] INVALID FOR* Encounter Status:Closed by KAELA WINKLER III, MD on 04/26/18 PROGRESS Observed: 04/26/2018 Status: COMPLETED Source: FREER 3:31 PM [facility] REPOSITORY HNO ID: [id number] Author: Pily Moore Service: (none) Author Type: Smoke And Flame Specialist Type: Progress Notes Filed: 04/26/2018 3:31 PM Note Text: Noted. Pily Moore MA PROGRESS Observed: 04/25/2018 Status: COMPLETED Source: FREER 2:01 PM [facility] REPOSITORY HNO ID: [id number] Author: Paul Vance (Rn) Service: (none) Author Type: Registered Nurse Type: Progress Notes Filed: 04/25/2018 3:02 PM Note Text: PRIMARY CARE COORDINATION FOLLOW-UP NOTE Provider Action/FYI 1. Spk with Filippo notified fasting labs ordered, Pt verbalized understanding. 2. Discussed with Pt transitioning to [facility] for Longitudinal Maintenance monitoring. Patient identified by name and date of . YES Thank You, Signature Pinky Miller RN April 25, 2018 PROGRESS Observed: 04/24/2018 Status: COMPLETED Source: FREER 10:09 AM [facility] REPOSITORY HNO ID: [id number] Author: Paul Vance (Rn) Service: (none) Author Type: Registered Nurse Type: Progress Notes Filed: 04/25/2018 1:23 PM Note Text: PRIMARY CARE COORDINATION FOLLOW-UP NOTE Provider Action/FYI 1. Spk with Jonny who noted Filippo is having increased reflux and is cold all the time, asked if any yearly lab work is due, and requested Pcp Appt. 2. Miner Helper scheduled Appt 04/26/[address] Winkler, labs pended for Pcp review Patient identified by name and date of . YES Spoke to spouse Thank You, Signature Pinky Miller RN April 24, 2018 PROGRESS Observed: 04/24/2018 Status: COMPLETED Source: FREER 9:18 AM [facility] REPOSITORY HNO ID: [id number] Author: Katie Haider MA Service: (none) Author Type: Smoke And Flame Specialist Type: Progress Notes Filed: 04/24/2018 9:19 AM Note Text: Rx is ready and will be taken to medical records shortly. Patient has been notified via voicemail. Katie Haider CMA PROGRESS Observed: 04/24/2018 Status: COMPLETED Source: FREER 7:50 AM [facility] REPOSITORY HNO ID: [id number] Author: Kaela Winkler III Service: (none) Author Type: Physician Type: Progress Notes Filed: 04/24/2018 9:19 AM Note Text: PDMP website checked and validated. All prescriptions have been APPROPRIATELY filled. No suspicious activity was identified. 04/24/2018 by Kaela Winkler III MD [facility] Observed: 04/24/2018 Status: COMPLETED Source: FREER 12:00 AM [facility] REPOSITORY Patient Outreach (FAMPWS) OSWALDOFILIPPO ([id number]) 1935 M Date Time Provider Department 04/24/18 PAUL VANCE (RN) F[facility]WS During your visit today, we recorded the following information about you: Pinky Miller RN 04/25/2018 1:23 PM Signed PRIMARY CARE COORDINATION FOLLOW-UP NOTE Provider Action/FYI 1. Spk with Jonny who noted Filippo is having increased reflux and is cold all the time, asked if any yearly lab work is due, and requested Pcp Appt. 2. Miner Helper scheduled Appt 04/26/[address] Winkler, labs pended for Pcp review Patient identified by name and date of . YES Spoke to spouse Thank You, Signature Pinky Miller RN April 24, 2018 Pinky Miller RN 04/25/2018 3:02 PM Addendum PRIMARY CARE COORDINATION FOLLOW-UP NOTE Provider Action/FYI 1. Spk with Filippo notified fasting labs ordered, Pt verbalized understanding. 2. Discussed with Pt transitioning to [facility] for Longitudinal Maintenance monitoring. Patient identified by name and date of . YES Thank You, Signature Pinky Miller RN April 25, 2018 Pily Moore MA 04/26/2018 3:31 PM Signed Noted. Pily Moore MA Allergies As of Date: 04/24/2018 Noted Allergy Reaction CORTISONE 10/18/2010 4 - Hives ADHESIVE TAPE (ROSINS) 04/21/2006 PENICILLINS 04/21/2006 2 - Rash ZOCOR (SIMVASTATIN) 04/05/2013 14 - Other: See Comments Comments: myalgia Date Reviewed: 03/31/2018 Reviewed by: Pily (Director Of Music) Caden - Fully Assessed Reason for Visit: It Security Consulting Director Chronic Care [3612] Cmt: Reflux, Appt, Labs pended Reason For Visit History Recorded Primary Visit Diagnosis:Hyperlipidemia LDL goal <100 [E78.5] Other Visit Diagnoses:Hyperuricemia [E79.0] 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] Macrocytic anemia with vitamin B12 deficiency [D51.9] Vitamin D deficiency [E55.9] Order(s):COMP METABOLIC PANEL [SQCMP] Order #: [id number] FUTURE LIPID PANEL BASIC [SQLIPB] Order #: [id number] FUTURE CBC + DIFF [SQCBCDIF] Order #: [id number] FUTURE VITAMIN D 25 HYDROXY [SQVITD] Order #: [id number] FUTURE URIC ACID BLOOD [SQURIC] Order #: [id number] FUTURE Prescriptions as of 04/24/2018 Sig: HYDROCODONE 5 MG-ACETAMINOPHE* Take 1 tablet by mouth every * TAMSULOSIN 0.4 MG CAPSULE TAKE ONE CAPSULE BY MOUTH AT * ALLOPURINOL 100 MG TABLET Take 1 tablet by mouth once d* OMEPRAZOLE 40 MG CAPSULE,DANIELITO* 40mg by mouth daily CYANOCOBALAMIN (VIT B-12) 1,0* 1000 mcg by mouth weekly PSEUDOEPHEDRINE-GUAIFENESIN E* Take 1 tablet by mouth every * CHOLECALCIFEROL (VITAMIN D3) * Take 1 tablet by mouth once d* DAILY VITAMIN TABLET Take one(1) tablet daily BY M* Problem List As Of Date 04/24/2018 Noted Resolved BENIGN HYPERTENSION [I10] 11/24/2014 Hyperlipidemia LDL goal <100 [E78.5] Inflamed seborrheic keratosis [L82.0] INVALID FOR*11/07/2014 Viral warts, unspecified [B07.9] INVALID FOR*11/07/2014 SOLAR LENGINES [L81.9] INVALID FOR*11/07/2014 XEROSIS [L73.8] INVALID FOR*11/07/2014 Other chronic dermatitis due to solar radiation*INVALID FOR*11/07/2014 CA IN SITU COLON [D01.0] INVALID FOR* BENIGN NEOPLASM LG BOWEL [D12.6] INVALID FOR* OTHER PSORIASIS [L40.8] INVALID FOR* Lipoma of unspecified site [D17.9] INVALID FOR*11/07/2014 AAA (abdominal aortic aneurysm) (HCC) [I71.4] INVALID FOR* More... 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 Intractable vomiting with nausea [R11.2] INVALID FOR*11/24/2015 Macrocytic anemia with vitamin B12 deficiency [*INVALID FOR* Renal stones [N20.0] INVALID FOR* Chronic prescription opiate use [Z79.891] INVALID FOR* Campylobacter enteritis [A04.5] INVALID FOR* Rotator cuff syndrome of left shoulder [M75.102]INVALID FOR*01/11/2018 Encounter Status:Closed by PINKY MILLER on 04/25/18 PROGRESS Observed: 04/23/2018 Status: COMPLETED Source: FREER 5:08 PM [facility] REPOSITORY HNO ID: [id number] Author: Paul Vance (Rn) Service: (none) Author Type: Registered Nurse Type: Progress Notes Filed: 04/24/2018 9:19 AM Note Text: PRIMARY CARE COORDINATION FOLLOW-UP NOTE Provider Action/FYI Pt called requesting a refill of [place] for Esophageal spasms, to prevent vomiting Patient identified by name and date of . YES Signature Pinky Miller RN April 23, 2018 CNPTOUTREACH Observed: 04/23/2018 Status: COMPLETED Source: FREER 12:00 AM [facility] REPOSITORY Patient Outreach (FAMPWS) FILIPPO CHACON ([id number]) 1935 Date Time Provider Department 04/23/18 PAUL WestRN) FAMPWS During your visit today, we recorded the following information about you: Pinky Miller RN 04/24/2018 9:19 AM Signed PRIMARY CARE COORDINATION FOLLOW-UP NOTE Provider Action/FYI Pt called requesting a refill of [place] for Esophageal spasms, to prevent vomiting Patient identified by name and date of . YES Signature Pinky Miller RN April 23, 2018 Kaela Winkler III MD 04/24/2018 9:19 AM Signed PDMP website checked and validated. All prescriptions have been APPROPRIATELY filled. No suspicious activity was identified. 04/24/2018 by [facility] 04/24/2018 9:19 AM Signed Rx is ready and will be taken to medical records shortly. Patient has been notified via voicemail. Katie Haider,GEROPSYCHOLOGIST Allergies As of Date: 04/23/2018 Noted Allergy Reaction CORTISONE 10/18/2010 4 - Hives ADHESIVE TAPE (ROSINS) 04/21/2006 PENICILLINS 04/21/2006 2 - Rash ZOCOR (SIMVASTATIN) 04/05/2013 14 - Other: See Comments Comments: myalgia Date Reviewed: 03/31/2018 Reviewed by: Pily ([facility]) Caden - Fully Assessed Reason for Visit: It Security Consulting Director Chronic Care [[id number]] Cmt: Medication request Visit Diagnoses: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] Esophageal spasm [K22.4] Order(s):HYDROcodone-acetaminophen (NORCO) 5-325 mg per tabletTake 1 tablet by mouth every 6 hours as needed for Pain (or esophageal spasm) for up to 30 days. Earliest Fill Date: 04/24/18Disp: 30 tabletRfl: 0 Prescriptions as of 04/23/2018 Sig: HYDROCODONE 5 MG-ACETAMINOPHE* Take 1 tablet by mouth every * TAMSULOSIN 0.4 MG CAPSULE TAKE ONE CAPSULE BY MOUTH AT * ALLOPURINOL 100 MG TABLET Take 1 tablet by mouth once d* OMEPRAZOLE 40 MG CAPSULE,DANIELITO* 40mg by mouth daily CYANOCOBALAMIN (VIT B-12) 1,0* 1000 mcg by mouth weekly PSEUDOEPHEDRINE-GUAIFENESIN E* Take 1 tablet by mouth every * CHOLECALCIFEROL (VITAMIN D3) * Take 1 tablet by mouth once d* DAILY VITAMIN TABLET Take one(1) tablet daily BY M* Problem List As Of Date 04/23/2018 Noted Resolved BENIGN HYPERTENSION [I10] 11/24/2014 Hyperlipidemia LDL goal <100 [E78.5] Inflamed seborrheic keratosis [L82.0] INVALID FOR*11/07/2014 Viral warts, unspecified [B07.9] INVALID FOR*11/07/2014 SOLAR LENGINES [L81.9] INVALID FOR*11/07/2014 XEROSIS [L73.8] INVALID FOR*11/07/2014 Other chronic dermatitis due to solar radiation*INVALID FOR*11/07/2014 CA IN SITU COLON [D01.0] INVALID FOR* BENIGN NEOPLASM LG BOWEL [D12.6] INVALID FOR* OTHER PSORIASIS [L40.8] INVALID FOR* Lipoma of unspecified site [D17.9] INVALID FOR*11/07/2014 AAA (abdominal aortic aneurysm) (HCC) [I71.4] INVALID FOR* More... 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 Intractable vomiting with nausea [R11.2] INVALID FOR*11/24/2015 Macrocytic anemia with vitamin B12 deficiency [*INVALID FOR* Renal stones [N20.0] INVALID FOR* Chronic prescription opiate use [Z79.891] INVALID FOR* Campylobacter enteritis [A04.5] INVALID FOR* Rotator cuff syndrome of left shoulder [M75.102]INVALID FOR*01/11/2018 Prescriptions ordered this encounter Disp Refills Start End HYDROCODONE 5 MG-ACETAMINOPHEN 325 M* 30 t* 0 04/24/2018 05/24/2018 Class: Print RX Route: ORAL Sig: Take 1 tablet by mouth every 6 hours as needed for Pain (or esophageal spasm) for up to 30 days. Earliest Fill Date: 04/24/18 Medications Discontinued During This Encounter HYDROcodone-acetaminophen (NORCO) 5-* 30 t* 0 02/28/2018 04/24/2018 Class: Print RX Route: ORAL Sig: Take 1 tablet by mouth every 6 hours as needed for Pain (or esophageal spasm) for up to 30 days. Earliest Fill Date: 02/28/18 Disc: Reason for discontinue is not on file. Encounter Status:Closed by KATIE HAIDER CMA on 04/24/18 PROGRESS Observed: 03/31/2018 Status: COMPLETED Source: FREER 3:29 PM [facility] REPOSITORY HNO ID: [id number] Author: Pily (Director Of Music) [facility] Service: (none) Author Type: Nurse Practitioner Type: Progress Notes Filed: 03/31/2018 3:55 PM Note Text: Subjective HPI Filippo Chacon is a 82 year old male who presents with a cat bite on his right hand that occurred yesterday. Today the hand is swollen and red. His tetanus is up to date. He cleaned the wound with soap and water afterwards and applied neosporin and Nuskin. He complains of throbbing pain in the hand. Review of Systems Constitutional: Negative. Negative for chills and fever. Respiratory: Negative. Cardiovascular: Negative. Gastrointestinal: Negative for nausea and vomiting. Musculoskeletal: See HPI Skin: Negative. Negative for itching and rash. BP 96/62 Pulse 80 Temp 36.9 ?C (98.5 ?F) (Tympanic) Resp 16 Wt 74.2 kg (163 lb 9.6 oz) BMI 23.96 kg/m? 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[facility]) - ASHD (arteriosclerotic heart disease) 07/11/05 coronary artery stent - Coronary stent 2000 [place], [place] - Essential hypertension, benign - Hyperuricemia 12/21/2011 - Kidney stone - Other and unspecified hyperlipidemia - Personal history of colonic polyps Colon polyps - Prostatitis, unspecified Prostatitis - 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 - Sleep apnea - Supraspinatus tendonitis 03/21/2011 PAST SURGICAL HISTORY Procedure Laterality Date - ANGIOPLASTY 2001 WITH STENT- completed in [place] - COLONOSCOP W/ OR W/O [facility] SPEC - COLONOSCOP W/ OR W/O [facility] SPEC 04/28/08 - DIAGNOSIS/HISTORY ligament repair right foot, 5th toe pin - EGD W/O [facility] SPECIMEN W/BX 04/24/14 healing ulcer, GE junction adenocarcinoma - EGD W/O OR W/BRUSH/WASH 04/23/14 Bleeding ulcer - ESWL multiple - EXC TUMOR SOFT TISSUE SHOULDER SUBFASCIAL 5+CM 04/22/14 Large lipoma - FRAGMENTING/KIDNEY STONE 07/01/2016 Lithotripsy - KNEE SCOPE,DIAGNOSTIC RIGHT Arthroscopy, knee x 2 - MIDLINE INSERTION/CONSULT 07/24/2014 - REMOVAL GALLBLADDER 1987 Cholecystectomy - REMOVAL OF TONSILS,<12 Y/O 1939 Tonsillectomy - REPAIR ING HERNIA,5+Y/O,REDUCIBL 1987 RIGHT ALLERGIES Cortisone; Adhesive Tape (Rosins); Penicillins; Zocor [Simvastatin] MEDICATIONS HYDROcodone-acetaminophen (NORCO) 5-325 mg per tablet Take 1 tablet by mouth every 6 hours as needed for Pain (or esophageal spasm) for up to 30 days.Earliest Fill Date: 02/28/18 tamsulosin ER (FLOMAX) 0.4 mg cp24 TAKE ONE CAPSULE BY MOUTH AT BEDTIME allopurinol (ZYLOPRIM) 100 mg tablet Take 1 tablet by mouth once daily. For gout. Omeprazole (PRILOSEC) 40 mg capsule 40mg by mouth daily cyanocobalamin (VITAMIN B-12) 1,000 mcg tab 1000 mcg by mouth weekly pseudoephedrine-guaiFENesin (MUCINEX D) 60-600 mg per tablet Take 1 tablet by mouth every 12 hours as needed for Cold/Allergy Symptoms. Cholecalciferol, Vitamin D3, 2,000 unit cap Take 1 tablet by mouth once daily. multivitamins(DAILY VITAMIN TAB) Take one(1) tablet daily BY MOUTH. FAMILY HISTORY Problem Relation Age of Onset - Colon Cancer Mother - Heart Father CHF,kidney failure - Heart Daughter Patent ductus arteriosus Social History Substance Use Topics - Smoking status: Former Smoker Years: 25.00 Types: Pipe Quit date: 08/14/2001 - Smokeless tobacco: Never Used - Alcohol use Yes Comment: 2 beers per month Objective Physical Exam Constitutional: He is well-developed, well-nourished, and in no distress. Cardiovascular: Normal rate. Musculoskeletal: Hands: Neurological: He is alert. Skin: Skin is warm and dry. There is erythema. Nursing note and vitals reviewed. ASSESSMENT/PLAN: 1. Cat bite of right hand, initial encounter - ICD9: 882.0, E906.3, ICD10: S61.451A, W55.01XA - DOXYCYCLINE HYCLATE 100 MG CAPSULE - METRONIDAZOLE 500 MG TABLET - no lymphatic streaking, this is explained to patient and seek care if it occurs. - Follow-up with your PCP in 3-5 days if symptoms have not improved or sooner if symptoms worsen - Discussed red flags and need for immediate medical evaluation if any occur. - Discussed supportive care treatment with fluids, rest and analgesia. - Discussed expected course of illness CADE KimOV Observed: 03/31/2018 Status: COMPLETED Source: FREER 3:15 PM [facility] REPOSITORY Office Visit ([facility]) FILIPPO CHACON ([id number]) 1935 M Date Time Provider Department 03/31/18 3:15 PM PILY NEGRETE ([place]) [facility] During your visit today, we recorded the following information about you: Temperature Pulse Respiration Blood pressure 98.5 degrees 80/minute 16/minute 96/62 Weight 74.2 kg Pily Negrete APRN.CNP 03/31/2018 3:55 PM Signed Subjective HPI Filippo Chacon is a 82 year old male who presents with a cat bite on his right hand that occurred yesterday. Today the hand is swollen and red. His tetanus is up to date. He cleaned the wound with soap and water afterwards and applied neosporin and Nuskin. He complains of throbbing pain in the hand. Review of Systems Constitutional: Negative. Negative for chills and fever. Respiratory: Negative. Cardiovascular: Negative. Gastrointestinal: Negative for nausea and vomiting. Musculoskeletal: See HPI Skin: Negative. Negative for itching and rash. BP 96/62 Pulse 80 Temp 36.9 ?C (98.5 ?F) (Tympanic) Resp 16 Wt 74.2 kg (163 lb 9.6 oz) BMI 23.96 kg/m? 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 - Sleep apnea - Supraspinatus tendonitis 03/21/2011 PAST SURGICAL HISTORY Procedure Laterality Date - ANGIOPLASTY 2001 WITH STENT- completed in [place] - COLONOSCOP W/ OR W/O [facility] SPEC - COLONOSCOP W/ OR W/O [facility] SPEC 04/28/08 - DIAGNOSIS/HISTORY ligament repair right foot, 5th toe pin - EGD W/O [facility] SPECIMEN W/BX 04/24/14 healing ulcer, GE junction adenocarcinoma - EGD W/O OR W/BRUSH/WASH 04/23/14 Bleeding ulcer - ESWL multiple - EXC TUMOR SOFT TISSUE SHOULDER SUBFASCIAL 5+CM 04/22/14 Large lipoma - FRAGMENTING/KIDNEY STONE 07/01/2016 Lithotripsy - KNEE SCOPE,DIAGNOSTIC RIGHT Arthroscopy, knee x 2 - MIDLINE INSERTION/CONSULT 07/24/2014 - REMOVAL GALLBLADDER 1987 Cholecystectomy - REMOVAL OF TONSILS,<12 Y/O 1939 Tonsillectomy - REPAIR ING HERNIA,5+Y/O,REDUCIBL 1986 RIGHT ALLERGIES Cortisone; Adhesive Tape (Rosins); Penicillins; Zocor [Simvastatin] MEDICATIONS HYDROcodone-acetaminophen (NORCO) 5-325 mg per tablet Take 1 tablet by mouth every 6 hours as needed for Pain (or esophageal spasm) for up to 30 days.Earliest Fill Date: 02/28/18 tamsulosin ER (FLOMAX) 0.4 mg cp24 TAKE ONE CAPSULE BY MOUTH AT BEDTIME allopurinol (ZYLOPRIM) 100 mg tablet Take 1 tablet by mouth once daily. For gout. Omeprazole (PRILOSEC) 40 mg capsule 40mg by mouth daily cyanocobalamin (VITAMIN B-12) 1,000 mcg tab 1000 mcg by mouth weekly pseudoephedrine-guaiFENesin (MUCINEX D) 60-600 mg per tablet Take 1 tablet by mouth every 12 hours as needed for Cold/Allergy Symptoms. Cholecalciferol, Vitamin D3, 2,000 unit cap Take 1 tablet by mouth once daily. multivitamins(DAILY VITAMIN TAB) Take one(1) tablet daily BY MOUTH. FAMILY HISTORY Problem Relation Age of Onset - Colon Cancer Mother - Heart Father CHF,kidney failure - Heart Daughter Patent ductus arteriosus Social History Substance Use Topics - Smoking status: Former Smoker Years: 25.00 Types: Pipe Quit date: 08/14/2001 - Smokeless tobacco: Never Used - Alcohol use Yes Comment: 2 beers per month Objective Physical Exam Constitutional: He is well-developed, well-nourished, and in no distress. Cardiovascular: Normal rate. Musculoskeletal: Hands: Neurological: He is alert. Skin: Skin is warm and dry. There is erythema. Nursing note and vitals reviewed. ASSESSMENT/PLAN: 1. Cat bite of right hand, initial encounter - ICD9: 882.0, E906.3, ICD10: S61.451A, W55.01XA - DOXYCYCLINE HYCLATE 100 MG CAPSULE - METRONIDAZOLE 500 MG TABLET - no lymphatic streaking, this is explained to patient and seek care if it occurs. - Follow-up with your PCP in 3-5 days if symptoms have not improved or sooner if symptoms worsen - Discussed red flags and need for immediate medical evaluation if any occur. - Discussed supportive care treatment with fluids, rest and analgesia. - Discussed expected course of illness CADE Kim APRN.CNP 03/31/2018 3:41 PM Signed [facility] PATIENT INFO SKIN INFECTION OVERVIEW Cellulitis is an infection of the skin and soft tissue of the skin. The infection is usually caused by bacteria that normally live on the skin, such as staphylococci (Staph) or streptococci (Strep). The infection develops when there is a break in the skin, such as a wound or injury, which may be minor. This allows bacteria to enter the skin and grow, causing infection and swelling. Most cases of cellulitis are mild and heal completely with antibiotic treatment. However, the infection can become severe and cause a bodywide infection if left untreated. It is important to seek medical care promptly if you could have a skin infection. SKIN INFECTION RISK FACTORS Certain conditions increase the risk of developing cellulitis. These include: ? Recent injury to the skin (a wound, abrasion, cut, recent shaving, or injection drug use) ? Swelling of the skin due to radiation therapy ? Current skin infection, such as athlete's foot or impetigo ? Accumulation of fluid (edema) due to poor circulation, heart failure, liver disease, or past surgery to remove lymph nodes ? Being overweight ? Chronic skin conditions, such as eczema or psoriasis However, cellulitis can also develop in people who have no known risk factors. SKIN INFECTION SYMPTOMS Cellulitis ? The most common symptom of cellulitis is pain or tenderness. Other cellulitis symptoms can include swelling, warmth, and redness in a distinct area of skin. These symptoms usually worsen and the redness may expand over the course of a few days. The skin is usually smooth and shiny rather than raised or bumpy. Fever and chills are not common. The most common areas of the body for cellulitis to develop include the legs and the arms; it can also develop around the eye, on the abdominal wall, in the mouth, and around the anus. Other skin infections ? Other types of skin infections include abscesses, furuncles (boils), and carbuncles. These usually cause a collection of pus under the skin. Skin that is raised, reddened, tender, and pus-filled may be caused by a skin infection known as methicillin-resistant Staphylococcus aureus (MRSA). DO I NEED TO BE EXAMINED? There are many types and causes of skin infections, and it is important to know the most likely cause of the infection before beginning treatment. Using the wrong treatment could allow the infection to worsen. To ensure that the correct treatment is used, it is important to be evaluated by a healthcare provider. SKIN INFECTION TREATMENT Cellulitis treatment includes antibiotics as well as treatment of any underlying condition that led to the skin infection. Elevate the area ? Elevating the arm or leg above the level of the heart can help to reduce swelling and speed healing. Keep the area clean and dry ? It is important to keep the infected area clean and dry. You can shower or bathe normally, and pat the area dry with a clean towel. You can use a bandage or gauze to protect the skin, if needed. Do not use any antibiotic ointments or creams. Antibiotics ? Most people with cellulitis are treated with an antibiotic that is taken by mouth for one to two weeks. The best antibiotic depends upon your situation. If the infection is severe, you may need to be hospitalized and treated with antibiotics given into a vein (IV). It is important to take the antibiotic exactly as recommended and to finish the entire course of treatment. Skipping doses or ending treatment early could potentially allow the bacteria to become resistant and require longer treatment. Time to heal ? The swelling, warmth, and redness should begin to improve within one to three days after starting antibiotics, although these symptoms can persist for two weeks. If the reddened area becomes larger, more swollen, or more tender, call your healthcare provider. He or she may want to reexamine you to determine if further testing or an alternate antibiotic are needed. SKIN INFECTION PROGNOSIS In most cases, you will recover completely from an episode of cellulitis without any complications. If you have skin infection risk factors talk to your healthcare provider to determine if there are steps you can take to minimize the risk of infections in the future. Referring Provider: SELF [[id number]] Allergies As of Date: 03/31/2018 Noted Allergy Reaction CORTISONE 10/18/2010 4 - Hives ADHESIVE TAPE (ROSINS) 04/21/2006 PENICILLINS 04/21/2006 2 - Rash ZOCOR (SIMVASTATIN) 04/05/2013 14 - Other: See Comments Comments: myalgia Date Reviewed: 03/31/2018 Reviewed by: Pily [facility] Ass[facility] Reason for Visit: cat bite right hand [Other] Cmt: his cat bit him yesterday Primary Visit Diagnosis:Cat bite of right hand, initial encounter [S61.451A, W55.01XA] Order(s):doxycycline hyclate (VIBRAMYCIN) 100 mg capsuleTake 1 capsule by mouth twice daily for 10 days.Disp: 20 capsuleRfl: 0 metroNIDAZOLE (FLAGYL) 500 mg tabletTake 1 tablet by mouth three times daily for 10 days.Disp: 30 tabletRfl: 0 Prescriptions as of 03/31/2018 Sig: HYDROCODONE 5 MG-ACETAMINOPHE* Take 1 tablet by mouth every * TAMSULOSIN 0.4 MG CAPSULE TAKE ONE CAPSULE BY MOUTH AT * ALLOPURINOL 100 MG TABLET Take 1 tablet by mouth once d* OMEPRAZOLE 40 MG CAPSULE,DANIELITO* 40mg by mouth daily CYANOCOBALAMIN (VIT B-12) 1,0* 1000 mcg by mouth weekly PSEUDOEPHEDRINE-GUAIFENESIN E* Take 1 tablet by mouth every * CHOLECALCIFEROL (VITAMIN D3) * Take 1 tablet by mouth once d* DAILY VITAMIN TABLET Take one(1) tablet daily BY M* DOXYCYCLINE HYCLATE 100 MG CA* Take 1 capsule by mouth twice* METRONIDAZOLE 500 MG TABLET Take 1 tablet by mouth three * Problem List As Of Date 03/31/2018 Noted Resolved BENIGN HYPERTENSION [I10] 11/24/2014 Hyperlipidemia LDL goal <100 [E78.5] Inflamed seborrheic keratosis [L82.0] INVALID FOR*11/07/2014 Viral warts, unspecified [B07.9] INVALID FOR*11/07/2014 SOLAR LENGINES [L81.9] INVALID FOR*11/07/2014 XEROSIS [L73.8] INVALID FOR*11/07/2014 Other chronic dermatitis due to solar radiation*INVALID FOR*11/07/2014 CA IN SITU COLON [D01.0] INVALID FOR* BENIGN NEOPLASM LG BOWEL [D12.6] INVALID FOR* OTHER PSORIASIS [L40.8] INVALID FOR* Lipoma of unspecified site [D17.9] INVALID FOR*11/07/2014 AAA (abdominal aortic aneurysm) (HCC) [I71.4] INVALID FOR* More... 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 Intractable vomiting with nausea [R11.2] INVALID FOR*11/24/2015 Macrocytic anemia with vitamin B12 deficiency [*INVALID FOR* Renal stones [N20.0] INVALID FOR* Chronic prescription opiate use [Z79.891] INVALID FOR* Campylobacter enteritis [A04.5] INVALID FOR* Rotator cuff syndrome of left shoulder [M75.102]INVALID FOR*01/11/2018 Other instructions from your clinician: [facility] PATIENT INFO SKIN INFECTION OVERVIEW Cellulitis is an infection of the skin and soft tissue of the skin. The infection is usually caused by bacteria that normally live on the skin, such as staphylococci (Staph) or streptococci (Strep). The infection develops when there is a break in the skin, such as a wound or injury, which may be minor. This allows bacteria to enter the skin and grow, causing infection and swelling. Most cases of cellulitis are mild and heal completely with antibiotic treatment. However, the infection can become severe and cause a bodywide infection if left untreated. It is important to seek medical care promptly if you could have a skin infection. SKIN INFECTION RISK FACTORS Certain conditions increase the risk of developing cellulitis. These include: ? Recent injury to the skin (a wound, abrasion, cut, recent shaving, or injection drug use) ? Swelling of the skin due to radiation therapy ? Current skin infection, such as athlete's foot or impetigo ? Accumulation of fluid (edema) due to poor circulation, heart failure, liver disease, or past surgery to remove lymph nodes ? Being overweight ? Chronic skin conditions, such as eczema or psoriasis However, cellulitis can also develop in people who have no known risk factors. SKIN INFECTION SYMPTOMS Cellulitis ? The most common symptom of cellulitis is pain or tenderness. Other cellulitis symptoms can include swelling, warmth, and redness in a distinct area of skin. These symptoms usually worsen and the redness may expand over the course of a few days. The skin is usually smooth and shiny rather than raised or bumpy. Fever and chills are not common. The most common areas of the body for cellulitis to develop include the legs and the arms; it can also develop around the eye, on the abdominal wall, in the mouth, and around the anus. Other skin infections ? Other types of skin infections include abscesses, furuncles (boils), and carbuncles. These usually cause a collection of pus under the skin. Skin that is raised, reddened, tender, and pus-filled may be caused by a skin infection known as methicillin-resistant Staphylococcus aureus (MRSA). DO I NEED TO BE EXAMINED? There are many types and causes of skin infections, and it is important to know the most likely cause of the infection before beginning treatment. Using the wrong treatment could allow the infection to worsen. To ensure that the correct treatment is used, it is important to be evaluated by a healthcare provider. SKIN INFECTION TREATMENT Cellulitis treatment includes antibiotics as well as treatment of any underlying condition that led to the skin infection. Elevate the area ? Elevating the arm or leg above the level of the heart can help to reduce swelling and speed healing. Keep the area clean and dry ? It is important to keep the infected area clean and dry. You can shower or bathe normally, and pat the area dry with a clean towel. You can use a bandage or gauze to protect the skin, if needed. Do not use any antibiotic ointments or creams. Antibiotics ? Most people with cellulitis are treated with an antibiotic that is taken by mouth for one to two weeks. The best antibiotic depends upon your situation. If the infection is severe, you may need to be hospitalized and treated with antibiotics given into a vein (IV). It is important to take the antibiotic exactly as recommended and to finish the entire course of treatment. Skipping doses or ending treatment early could potentially allow the bacteria to become resistant and require longer treatment. Time to heal ? The swelling, warmth, and redness should begin to improve within one to three days after starting antibiotics, although these symptoms can persist for two weeks. If the reddened area becomes larger, more swollen, or more tender, call your healthcare provider. He or she may want to reexamine you to determine if further testing or an alternate antibiotic are needed. SKIN INFECTION PROGNOSIS In most cases, you will recover completely from an episode of cellulitis without any complications. If you have skin infection risk factors talk to your healthcare provider to determine if there are steps you can take to minimize the risk of infections in the future. Prescriptions ordered this encounter Disp Refills Start End DOXYCYCLINE HYCLATE 100 MG CAPSULE 20 c* 0 03/31/2018 04/10/2018 Route: ORAL Sig: Take 1 capsule by mouth twice daily for 10 days. METRONIDAZOLE 500 MG TABLET 30 t* 0 03/31/2018 04/10/2018 Route: ORAL Sig: Take 1 tablet by mouth three times daily for 10 days. Encounter Status:Closed by PILY NEGRETE on 03/31/18 PROGRESS Observed: 03/30/2018 Status: COMPLETED Source: [place] 1:28 PM [facility] REPOSITORY HNO ID: [id number] Author: Jeremiah Flores Ma Service: (none) Author Type: (none) Type: Progress Notes Filed: 03/30/2018 1:28 PM Note Text: Patient notified and appt. Cancelled. PROGRESS Observed: 03/30/2018 Status: COMPLETED Source: [place] 1:14 PM [facility] REPOSITORY HNO ID: [id number] Author: Kaela Winkler III Service: (none) Author Type: Physician Type: Progress Notes Filed: 03/30/2018 1:28 PM Note Text: He had a Tdap Immunization in Dec, 2016. He does not require a tetanus vaccination at this time. Kaela Winkler III, MD, FAAFP PROGRESS Observed: 03/30/2018 Status: COMPLETED Source: [place] 10:45 AM [facility] REPOSITORY HNO ID: [id number] Author: Paul Vance (Rn) Service: (none) Author Type: Registered Nurse Type: Progress Notes Filed: 03/30/2018 1:28 PM Note Text: PRIMARY CARE COORDINATION QUICK NOTE Provider Action/FYI Call from Pt requesting a Tetanus shot, noting just had 2 cat bites on his thumb today. Miner Helper will forward request to Dr. Winkler. Patient identified by name and date . Pinky Miller RN March 30, 2018 10:45 AM CNPTOUTREACH Observed: 03/30/2018 Status: COMPLETED Source: [place] [address]:00 AM [facility] REPOSITORY Patient Outreach (FAMPWS) FILIPPO CHACON ([id number]) 1935 M Date Time Provider Department 03/30/18 PAUL WestRN) FAMPWS During your visit today, we recorded the following information about you: Pinky Miller RN 03/30/2018 1:28 PM Signed PRIMARY CARE COORDINATION QUICK NOTE Provider Action/FYI Call from Pt requesting a Tetanus shot, noting just had 2 cat bites on his thumb today. Miner Helper will forward request to Dr. Winkler. Patient identified by name and date . Pinky Miller RN March 30, 2018 10:45 AM Kaela Winkler III MD 03/30/2018 1:28 PM Signed He had a Tdap Immunization in Dec, 2016. He does not require a tetanus vaccination at this time. Kaela Winkler III, MD, FAAFP Jeremiah Flores Ma 03/30/2018 1:28 PM Signed Patient notified and appt. Cancelled. Allergies As of Date: 03/30/2018 Noted Allergy Reaction CORTISONE 10/18/2010 4 - Hives ADHESIVE TAPE (ROSINS) 04/21/2006 PENICILLINS 04/21/2006 2 - Rash ZOCOR (SIMVASTATIN) 04/05/2013 14 - Other: See Comments Comments: myalgia Date Reviewed: 01/16/2018 Reviewed by: Edith ([facility]) Alexsander - Fully Assessed Reason for Visit: It Security Consulting Director - Patient Initiated [8035] Cmt: Cat Bite Prescriptions as of 03/30/2018 Sig: HYDROCODONE 5 MG-ACETAMINOPHE* Take 1 tablet by mouth every * TAMSULOSIN 0.4 MG CAPSULE TAKE ONE CAPSULE BY MOUTH AT * ALLOPURINOL 100 MG TABLET Take 1 tablet by mouth once d* OMEPRAZOLE 40 MG CAPSULE,DANIELITO* 40mg by mouth daily CYANOCOBALAMIN (VIT B-12) 1,0* 1000 mcg by mouth weekly PSEUDOEPHEDRINE-GUAIFENESIN E* Take 1 tablet by mouth every * CHOLECALCIFEROL (VITAMIN D3) * Take 1 tablet by mouth once d* DAILY VITAMIN TABLET Take one(1) tablet daily BY M* Problem List As Of Date 03/30/2018 Noted Resolved BENIGN HYPERTENSION [I10] 11/24/2014 Hyperlipidemia LDL goal <100 [E78.5] Inflamed seborrheic keratosis [L82.0] INVALID FOR*11/07/2014 Viral warts, unspecified [B07.9] INVALID FOR*11/07/2014 SOLAR LENGINES [L81.9] INVALID FOR*11/07/2014 XEROSIS [L73.8] INVALID FOR*11/07/2014 Other chronic dermatitis due to solar radiation*INVALID FOR*11/07/2014 CA IN SITU COLON [D01.0] INVALID FOR* BENIGN NEOPLASM LG BOWEL [D12.6] INVALID FOR* OTHER PSORIASIS [L40.8] INVALID FOR* Lipoma of unspecified site [D17.9] INVALID FOR*11/07/2014 AAA (abdominal aortic aneurysm) (HCC) [I71.4] INVALID FOR* More... 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 Intractable vomiting with nausea [R11.2] INVALID FOR*11/24/2015 Macrocytic anemia with vitamin B12 deficiency [*INVALID FOR* Renal stones [N20.0] INVALID FOR* Chronic prescription opiate use [Z79.891] INVALID FOR* Campylobacter enteritis [A04.5] INVALID FOR* Rotator cuff syndrome of left shoulder [M75.102]INVALID FOR*01/11/2018 Encounter Status:Closed by JEREMIAH FLORES MA on 03/30/18 PROGRESS Observed: 03/01/2018 Status: COMPLETED Source: [place] 10:33 AM [facility] REPOSITORY HNO ID: [id number] Author: Paul Vance (Rn) Service: (none) Author Type: Registered Nurse Type: Progress Notes Filed: 03/01/2018 10:38 AM Note Text: PRIMARY CARE COORDINATION FOLLOW-UP NOTE Provider Action/FYI Call from Pt notified [facility] refilled, prescription will be at Medical records for tow picker. Pt verbalized understanding. Denies additional needs or concerns Patient identified by name and date of . YES Spoke to patient Signature Pinky Miller RN March 01, 2018 CNPTOUTREACH Observed: 03/01/2018 Status: COMPLETED Source: [place] 12:00 AM [facility] REPOSITORY Patient Outreach (FAMPWS) FILIPPO CHACON ([id number]) 1935 M Date Time Provider Department 03/01/18 PAUL VANCE (RN) [facility]WS During your visit today, we recorded the following information about you: Pinky Miller RN 03/01/2018 10:38 AM Signed PRIMARY CARE COORDINATION FOLLOW-UP NOTE Provider Action/FYI Call from Pt notified [facility] refilled, prescription will be at Medical records for tow picker. Pt verbalized understanding. Denies additional needs or concerns Patient identified by name and date of . YES Spoke to patient Signature Pinky Miller RN March 01, 2018 Allergies As of Date: 03/01/2018 Noted Allergy Reaction CORTISONE 10/18/2010 4 - Hives ADHESIVE TAPE (ROSINS) 04/21/2006 PENICILLINS 04/21/2006 2 - Rash ZOCOR (SIMVASTATIN) 04/05/2013 14 - Other: See Comments Comments: myalgia Date Reviewed: 01/16/2018 Reviewed by: Edith (Director Of [employer]) Alexsander - Fully Assessed Reason for Visit: It Security Consulting Director Chronic Care [3612] Cmt: Medication Prescriptions as of 03/01/2018 Sig: HYDROCODONE 5 MG-ACETAMINOPHE* Take 1 tablet by mouth every * TAMSULOSIN 0.4 MG CAPSULE TAKE ONE CAPSULE BY MOUTH AT * ALLOPURINOL 100 MG TABLET Take 1 tablet by mouth once d* OMEPRAZOLE 40 MG CAPSULE,DANIELITO* 40mg by mouth daily CYANOCOBALAMIN (VIT B-12) 1,0* 1000 mcg by mouth weekly PSEUDOEPHEDRINE-GUAIFENESIN E* Take 1 tablet by mouth every * CHOLECALCIFEROL (VITAMIN D3) * Take 1 tablet by mouth once d* DAILY VITAMIN TABLET Take one(1) tablet daily BY M* Problem List As Of Date 03/01/2018 Noted Resolved BENIGN HYPERTENSION [I10] 11/24/2014 Hyperlipidemia LDL goal <100 [E78.5] Inflamed seborrheic keratosis [L82.0] INVALID FOR*11/07/2014 Viral warts, unspecified [B07.9] INVALID FOR*11/07/2014 SOLAR LENGINES [L81.9] INVALID FOR*11/07/2014 XEROSIS [L73.8] INVALID FOR*11/07/2014 Other chronic dermatitis due to solar radiation*INVALID FOR*11/07/2014 CA IN SITU COLON [D01.0] INVALID FOR* BENIGN NEOPLASM LG BOWEL [D12.6] INVALID FOR* OTHER PSORIASIS [L40.8] INVALID FOR* Lipoma of unspecified site [D17.9] INVALID FOR*11/07/2014 AAA (abdominal aortic aneurysm) (HCC) [I71.4] INVALID FOR* More... 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 Intractable vomiting with nausea [R11.2] INVALID FOR*11/24/2015 Macrocytic anemia with vitamin B12 deficiency [*INVALID FOR* Renal stones [N20.0] INVALID FOR* Chronic prescription opiate use [Z79.891] INVALID FOR* Campylobacter enteritis [A04.5] INVALID FOR* Rotator cuff syndrome of left shoulder [M75.102]INVALID FOR*01/11/2018 Encounter Status:Closed by PINKY MILLER on 03/01/18 PROGRESS Observed: 02/28/2018 Status: COMPLETED Source: [facility] 5:27 PM [facility] HNO ID: [id number] Author: Drea Smtih Ma Service: (none) Author Type: (none) Type: Progress Notes Filed: 02/28/2018 5:28 PM Note Text: was notified that prescription was ready for tow picker at medical records. PROGRESS Observed: 02/28/2018 Status: COMPLETED Source: [facility] 4:56 PM [facility] REPOSITORY HNO ID: [id number] Author: Yoan Jose Service: (none) Author Type: Physician Type: Progress Notes Filed: 02/28/2018 5:28 PM Note Text: oarrs done. written PROGRESS Observed: 02/28/2018 Status: COMPLETED Source: [facility] 3:46 PM [facility] REPOSITORY HNO ID: [id number] Author: Paul Vance (Rn) Service: (none) Author Type: Registered Nurse Type: Progress Notes Filed: 02/28/2018 5:28 PM Note Text: PRIMARY CARE COORDINATION FOLLOW-UP NOTE Provider Action/FYI 1. Call from Pt to request refill [place] prevent Esophageal spasms, and vomiting, Pt reports is taking 1/2 tablet -1 per day, notes medication is effective. 2. Wt has dropped to 164 lb, diet is monitored closely to prevent emesis. Encouraged to eat small frequent meals, with higher calorie snacks, discussed the importance of adequate fluid intake to prevent dehydration. Pt noted he is working eating more often and drinks a lot of water, does not like Gatorade or powerade products. Patient identified by name and date of . YES Spoke to patient Miner Helper plan for next outreach: Health Education and promotion of wellness Early symptom awareness, prevent complications and hospitalization Signature Pinky Miller RN February 28, 2018 CNPTOUTREACH Observed: 02/28/2018 Status: COMPLETED Source: [facility] 12:00 AM [facility] REPOSITORY Patient Outreach (FAMPWS) FILIPPO CHACON ([id number]) 1935 M Date Time Provider Department 02/28/18 PAUL VANCE (RN) FAMPWS During your visit today, we recorded the following information about you: Pinky Miller RN 02/28/2018 5:28 PM Signed PRIMARY CARE COORDINATION FOLLOW-UP NOTE Provider Action/FYI 1. Call from Pt to request refill [place] prevent Esophageal spasms, and vomiting, Pt reports is taking 1/2 tablet -1 per day, notes medication is effective. 2. Wt has dropped to 164 lb, diet is monitored closely to prevent emesis. Encouraged to eat small frequent meals, with higher calorie snacks, discussed the importance of adequate fluid intake to prevent dehydration. Pt noted he is working eating more often and drinks a lot of water, does not like Gatorade or powerade products. Patient identified by name and date of . YES Spoke to patient Miner Helper plan for next outreach: Health Education and promotion of wellness Early symptom awareness, prevent complications and hospitalization Signature Pinky Miller RN February 28, 2018 Yoan Jose MD 02/28/2018 5:28 PM Signed oarrs done. written Drea Smith Ma 02/28/2018 5:28 PM Signed was notified that prescription was ready for tow picker at medical records. 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 Earliest Fill Date: 02/28/18Disp: 30 tabletRfl: 0 Prescriptions as of 02/28/2018 Sig: HYDROCODONE 5 MG-ACETAMINOPHE* Take 1 tablet by mouth every * TAMSULOSIN 0.4 MG CAPSULE TAKE ONE CAPSULE BY MOUTH AT * ALLOPURINOL 100 MG TABLET Take 1 tablet by mouth once d* OMEPRAZOLE 40 MG CAPSULE,DANIELITO* 40mg by mouth daily CYANOCOBALAMIN (VIT B-12) 1,0* 1000 mcg by mouth weekly PSEUDOEPHEDRINE-GUAIFENESIN E* Take 1 tablet by mouth every * CHOLECALCIFEROL (VITAMIN D3) * Take 1 tablet by mouth once d* DAILY VITAMIN TABLET Take one(1) tablet daily BY M* Problem List As Of Date 02/28/2018 Noted Resolved BENIGN HYPERTENSION [I10] 11/24/2014 Hyperlipidemia LDL goal <100 [E78.5] Inflamed seborrheic keratosis [L82.0] INVALID FOR*11/07/2014 Viral warts, unspecified [B07.9] INVALID FOR*11/07/2014 SOLAR LENGINES [L81.9] INVALID FOR*11/07/2014 XEROSIS [L73.8] INVALID FOR*11/07/2014 Other chronic dermatitis due to solar radiation*INVALID FOR*11/07/2014 CA IN SITU COLON [D01.0] INVALID FOR* BENIGN NEOPLASM LG BOWEL [D12.6] INVALID FOR* OTHER PSORIASIS [L40.8] INVALID FOR* Lipoma of unspecified site [D17.9] INVALID FOR*11/07/2014 AAA (abdominal aortic aneurysm) (HCC) [I71.4] INVALID FOR* More... 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 Intractable vomiting with nausea [R11.2] INVALID FOR*11/24/2015 Macrocytic anemia with vitamin B12 deficiency [*INVALID FOR* Renal stones [N20.0] INVALID FOR* Chronic prescription opiate use [Z79.891] INVALID FOR* Campylobacter enteritis [A04.5] INVALID FOR* Rotator cuff syndrome of left shoulder [M75.102]INVALID FOR*01/11/2018 Prescriptions ordered this encounter Disp Refills Start End HYDROCODONE 5 MG-ACETAMINOPHEN 325 M* 30 t* 0 02/28/2018 03/30/2018 Class: Print RX Route: ORAL Sig: Take 1 tablet by mouth every 6 hours as needed for Pain (or esophageal spasm) for up to 30 days. Earliest Fill Date: 02/28/18 Medications Discontinued During This Encounter HYDROcodone-acetaminophen (NORCO) 5-* 30 t* 0 01/09/2018 02/28/2018 Class: Print RX Route: ORAL Sig: Take 1 tablet by mouth every 6 hours as needed for Pain (or esophageal spasm) for up to 30 days. Earliest Fill Date: 01/09/18 Disc: Reason for discontinue is not on file. Encounter Status:Closed by DREA SMITH MA on 02/28/18 PROGRESS Observed: 01/18/2018 Status: COMPLETED Source: [facility] 2:46 PM [facility] REPOSITORY HNO ID: [id number] Author: Brenda Solis (Sw) Service: (none) Author Type: Wagon Winder Type: Progress Notes Filed: 01/18/2018 2:46 PM Note Text: SOCIAL WORK Date of Service: January 18, 2018 Filippo Chacon is a 82 year old male being seen for initial social work assessment. At this time, social work service is declined/deferred based on: he is unavailable. NUHA unable to contact patient. Phone rang then hung up. PLAN: Call patient at a later date KVNG Joseph Observed: 01/18/2018 Status: COMPLETED Source: [facility] 12:00 AM [facility] REPOSITORY Social Work (HERMINIO) FILIPPO CHACON ([id number]) 1935 M Date Time Provider Department 01/18/18 BRENDA SOLIS (NUHA) HERMINIO During your visit today, we recorded the following information about you: KVNG Joseph 01/18/2018 2:46 PM Signed SOCIAL WORK Date of Service: January 18, 2018 Filippo Chacon is a 82 year old male being seen for initial social work assessment. At this time, social work service is declined/deferred based on: he is unavailable. NUHA unable to contact patient. Phone rang then hung up. PLAN: Call patient at a later date KVNG Joseph Allergies As of Date: 01/18/2018 Noted Allergy Reaction CORTISONE 10/18/2010 4 - Hives ADHESIVE TAPE (ROSINS) 04/21/2006 PENICILLINS 04/21/2006 2 - Rash ZOCOR (SIMVASTATIN) 04/05/2013 14 - Other: See Comments Comments: myalgia Date Reviewed: 01/16/2018 Reviewed by: Edith (Director Of Music) Alexsander - Fully Assessed Reason for Visit: Social Work Services [507] Prescriptions as of 01/18/2018 Sig: HYDROCODONE 5 MG-ACETAMINOPHE* Take 1 tablet by mouth every * TAMSULOSIN 0.4 MG CAPSULE TAKE ONE CAPSULE BY MOUTH AT * ALLOPURINOL 100 MG TABLET Take 1 tablet by mouth once d* OMEPRAZOLE 40 MG CAPSULE,DANIELITO* 40mg by mouth daily CYANOCOBALAMIN (VIT B-12) 1,0* 1000 mcg by mouth weekly PSEUDOEPHEDRINE-GUAIFENESIN E* Take 1 tablet by mouth every * CHOLECALCIFEROL (VITAMIN D3) * Take 1 tablet by mouth once d* DAILY VITAMIN TABLET Take one(1) tablet daily BY M* Problem List As Of Date 01/18/2018 Noted Resolved BENIGN HYPERTENSION [I10] 11/24/2014 Hyperlipidemia LDL goal <100 [E78.5] Inflamed seborrheic keratosis [L82.0] INVALID FOR*11/07/2014 Viral warts, unspecified [B07.9] INVALID FOR*11/07/2014 SOLAR LENGINES [L81.9] INVALID FOR*11/07/2014 XEROSIS [L73.8] INVALID FOR*11/07/2014 Other chronic dermatitis due to solar radiation*INVALID FOR*11/07/2014 CA IN SITU COLON [D01.0] INVALID FOR* BENIGN NEOPLASM LG BOWEL [D12.6] INVALID FOR* OTHER PSORIASIS [L40.8] INVALID FOR* Lipoma of unspecified site [D17.9] INVALID FOR*11/07/2014 AAA (abdominal aortic aneurysm) (HCC) [I71.4] INVALID FOR* More... 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 Intractable vomiting with nausea [R11.2] INVALID FOR*11/24/2015 Macrocytic anemia with vitamin B12 deficiency [*INVALID FOR* Renal stones [N20.0] INVALID FOR* Chronic prescription opiate use [Z79.891] INVALID FOR* Campylobacter enteritis [A04.5] INVALID FOR* Rotator cuff syndrome of left shoulder [M75.102]INVALID FOR*01/11/2018 Encounter Status:Closed by BRENDA SOLIS on 01/18/18 PROGRESS Observed: 01/16/2018 Status: COMPLETED Source: [facility] 9:25 AM [facility] REPOSIT[facility] HNO ID: [id number] Author: Edith Mercer) Alexsander Service: (none) Author Type: Nurse Practitioner Type: Progress Notes Filed: 01/18/2018 8:04 AM Note Text: Chief Complaint Patient presents with: Established Patient HPI: Filippo Chacon is a 82 year old male who presents here today for follow up gastric cancer. Per Dr. Golden's previous note: H/o CAD (stent x1 in 2001), hyperuricemia and sleep apnea who underwent a gastrectomy in July 2014. ? 1. Stomach, total gastrectomy (A) - Moderately to poorly differentiated adenocarcinoma, with extensive foveolar differentiation (2.5cm in greatest dimension) with invasion into the submucosa but not into the muscularis propria. - Margins of resection are negative. - Thirty-three lymph nodes, negative for tumor (0/33). - See synoptic report. 2. Small bowel, nodule, excision (B) - Fibroadipose tissue with calcification. - Negative for carcinoma. 3. Esophageal margin #2, excision (C) - Squamous mucosa negative for invasive cancer. SAGE/MADDI/luis alfredo 07/29/2014 COMMENT 1. The tumor demonstrates a range of differentiation from areas of well-differentiated adenocarcinoma to areas of poorly differentiated single cells. The tumor involves the mucosa and the submucosa and abuts but does not invade into the muscularis propria. However, there is lymphovascular invasion. While 33 lymph nodes were ultimately found in this case. They were all negative and the vast majority of the lymph nodes were in the 1-2mm size range. IHC and molecular studies for HER2 were performed on the previous specimen ([id number]) ? HER-2 was noted to be equivocal. ? Surveillance CT scans in July 2015: 1. Stable postsurgical findings of distal esophagectomy, gastrectomy, and esophagojejunostomy. 2. Stable 4 mm indeterminate nodular opacity in the left lower lobe since 04/28/2014. Continued CT surveillance is suggested. 3. Indeterminate sclerotic lesion/region in the right aspect of the C7 vertebral body which was not imaged on the prior CT. While this may be degenerative, metastatic disease is not excluded and follow- up is recommended. 4. Findings consistent with prior granulomatous disease in the chest. ? POST ESOPHAGECTOMY AND ESOPHAGOJEJUNOSTOMY. NO METASTATIC DISEASE IN THE ABDOMEN OR PELVIS. 3.3 CM INFRARENAL ABDOMINAL AORTIC ANEURYSM, UNCHANGED. ? No complaints. Appetite:it's good-I eat four times per day Meat still gives me a hard time otherwise I can eat anything else. Energy level:I'm always doing something-I just don't have the stamina like I used to. Denies fevers or recent illness. Resp:denies cough or sob Cardiac:denies chest pain/palpitations GI:denies abd pain, n/v, moving bowels regularly it will sometimes alternate between normal stool and diarrhea. :denies dysuria/hematuria Extrem:denies pain currently I have random aches and pains Neuro:denies symptoms of neuropathy Skin:denies rashes/lesions Heme:denies bleeding The ROS is otherwise negative. Past medical history, appointments, medications, allergies reviewed. No changes. EXAM: BP 127/86 Pulse 69 Temp 36.8 ?C (98.3 ?F) (Oral) Wt 75.3 kg (166 lb) BMI 24.31 kg/m? APPEARANCE Well appearing, alert, in no acute distress, well-hydrated, well nourished. HEART RRR with normal S1 and S2, no murmurs LUNG clear to auscultation LYMPH NODES No cervical lymphadenopathy, No supraclavicular lymphadenopathy and No axillary lymphadenopathy. ABDOMEN bowel sounds normoactive, no bruits, soft, non-tender, non-distended, without organomegaly or palpable masses EXTREMITIES No edema NEURO Awake, alert and oriented x 3, Normal gait and No involuntary motions. SKIN Skin color, texture, turgor normal, no suspicious rashes or lesions ASSESSMENT/PLAN: 1. 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 - No concerning findings on exam. - He is 3 1/2 years out from surgery. - Per Dr. Golden's previous note-Recommended imaging on an as indicated basis at this point. He is intolerant to oral contrast. - Plan on every 6 month office visit until 5 years out. - Follow up in 6 months. - Pt. aware to call office with any questions/concerns. The patient indicates understanding of these issues and agrees with the plan. Edith Beltre APRN.CHANTALE CNOVSP Observed: 01/16/2018 Status: COMPLETED Source: F[facility] 9:00 AM [facility] REPOSITORY Visit (SP) Office (HERMINIO) FILIPPO CHACON ([id number]) 1935 M Date Time Provider Department 01/16/18 9:00 AM EDITH BELTRE) HERMINIO During your visit today, we recorded the following information about you: Temperature Pulse Blood pressure Weight 98.3 degrees 69/minute 127/86 75.3 kg Edith Beltre, CADE 01/18/2018 8:04 AM Signed Chief Complaint Patient presents with: Established Patient HPI: Filippo Chacon is a 82 year old male who presents here today for follow up gastric cancer. Per Dr. Golden's previous note: H/o CAD (stent x1 in 2001), hyperuricemia and sleep apnea who underwent a gastrectomy in July 2014. ? 1. Stomach, total gastrectomy (A) - Moderately to poorly differentiated adenocarcinoma, with extensive foveolar differentiation (2.5cm in greatest dimension) with invasion into the submucosa but not into the muscularis propria. - Margins of resection are negative. - Thirty-three lymph nodes, negative for tumor (0/33). - See synoptic report. 2. Small bowel, nodule, excision (B) - Fibroadipose tissue with calcification. - Negative for carcinoma. 3. Esophageal margin #2, excision (C) - Squamous mucosa negative for invasive cancer. SAGE/MADDI/luis alfredo 07/29/2014 COMMENT 1. The tumor demonstrates a range of differentiation from areas of well-differentiated adenocarcinoma to areas of poorly differentiated single cells. The tumor involves the mucosa and the submucosa and abuts but does not invade into the muscularis propria. However, there is lymphovascular invasion. While 33 lymph nodes were ultimately found in this case. They were all negative and the vast majority of the lymph nodes were in the 1-2mm size range. IHC and molecular studies for HER2 were performed on the previous specimen ([id number]) ? HER-2 was noted to be equivocal. ? Surveillance CT scans in July 2015: 1. Stable postsurgical findings of distal esophagectomy, gastrectomy, and esophagojejunostomy. 2. Stable 4 mm indeterminate nodular opacity in the left lower lobe since 04/28/2014. Continued CT surveillance is suggested. 3. Indeterminate sclerotic lesion/region in the right aspect of the C7 vertebral body which was not imaged on the prior CT. While this may be degenerative, metastatic disease is not excluded and follow- up is recommended. 4. Findings consistent with prior granulomatous disease in the chest. ? POST ESOPHAGECTOMY AND ESOPHAGOJEJUNOSTOMY. NO METASTATIC DISEASE IN THE ABDOMEN OR PELVIS. 3.3 CM INFRARENAL ABDOMINAL AORTIC ANEURYSM, UNCHANGED. ? No complaints. Appetite:it's good-I eat four times per day Meat still gives me a hard time otherwise I can eat anything else. Energy level:I'm always doing something-I just don't have the stamina like I used to. Denies fevers or recent illness. Resp:denies cough or sob Cardiac:denies chest pain/palpitations GI:denies abd pain, n/v, moving bowels regularly it will sometimes alternate between normal stool and diarrhea. :denies dysuria/hematuria Extrem:denies pain currently I have random aches and pains Neuro:denies symptoms of neuropathy Skin:denies rashes/lesions Heme:denies bleeding The ROS is otherwise negative. Past medical history, appointments, medications, allergies reviewed. No changes. EXAM: BP 127/86 Pulse 69 Temp 36.8 ?C (98.3 ?F) (Oral) Wt 75.3 kg (166 lb) BMI 24.31 kg/m? APPEARANCE Well appearing, alert, in no acute distress, well- hydrated, well nourished. HEART RRR with normal S1 and S2, no murmurs LUNG clear to auscultation LYMPH NODES No cervical lymphadenopathy, No supraclavicular lymphadenopathy and No axillary lymphadenopathy. ABDOMEN bowel sounds normoactive, no bruits, soft, non-tender, non-distended, without organomegaly or palpable masses EXTREMITIES No edema NEURO Awake, alert and oriented x 3, Normal gait and No involuntary motions. SKIN Skin color, texture, turgor normal, no suspicious rashes or lesions ASSESSMENT/PLAN: 1. 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 - No concerning findings on exam. - He is 3 1/2 years out from surgery. - Per Dr. Golden's previous note-Recommended imaging on an as indicated basis at this point. He is intolerant to oral contrast. - Plan on every 6 month office visit until 5 years out. - Follow up in 6 months. - Pt. aware to call office with any questions/concerns. The patient indicates understanding of these issues and agrees with the plan. 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] Follow-up and Disposition History Recorded Prescriptions as of 01/16/2018 Sig: HYDROCODONE 5 MG-ACETAMINOPHE* Take 1 tablet by mouth every * TAMSULOSIN 0.4 MG CAPSULE TAKE ONE CAPSULE BY MOUTH AT * ALLOPURINOL 100 MG TABLET Take 1 tablet by mouth once d* OMEPRAZOLE 40 MG CAPSULE,DANIELITO* 40mg by mouth daily CYANOCOBALAMIN (VIT B-12) 1,0* 1000 mcg by mouth weekly PSEUDOEPHEDRINE-GUAIFENESIN E* Take 1 tablet by mouth every * CHOLECALCIFEROL (VITAMIN D3) * Take 1 tablet by mouth once d* DAILY VITAMIN TABLET Take one(1) tablet daily BY M* Problem List As Of Date 01/16/2018 Noted Resolved BENIGN HYPERTENSION [I10] 11/24/2014 Hyperlipidemia LDL goal <100 [E78.5] Inflamed seborrheic keratosis [L82.0] INVALID FOR*11/07/2014 Viral warts, unspecified [B07.9] INVALID FOR*11/07/2014 SOLAR LENGINES [L81.9] INVALID FOR*11/07/2014 XEROSIS [L73.8] INVALID FOR*11/07/2014 Other chronic dermatitis due to solar radiation*INVALID FOR*11/07/2014 CA IN SITU COLON [D01.0] INVALID FOR* BENIGN NEOPLASM LG BOWEL [D12.6] INVALID FOR* OTHER PSORIASIS [L40.8] INVALID FOR* Lipoma of unspecified site [D17.9] INVALID FOR*11/07/2014 AAA (abdominal aortic aneurysm) (HCC) [I71.4] INVALID FOR* More... 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 Intractable vomiting with nausea [R11.2] INVALID FOR*11/24/2015 Macrocytic anemia with vitamin B12 deficiency [*INVALID FOR* Renal stones [N20.0] INVALID FOR* Chronic prescription opiate use [Z79.891] INVALID FOR* Campylobacter enteritis [A04.5] INVALID FOR* Rotator cuff syndrome of left shoulder [M75.102]INVALID FOR*01/11/2018 Encounter Status:Closed by EDITH BELTRE CNP on 01/18/18 PROGRESS Observed: 01/11/2018 Status: COMPLETED Source: [facility] 4:32 PM [facility] REPOSIT[facility] HNO ID: [id number] Author: Kaela Winkler III Service: (none) Author Type: Physician Type: Progress Notes Filed: 01/11/2018 5:01 PM Note Text: SUBJECTIVE: This is a 82 year old male that is here today for eval of R shoulder pain that started 2 d. ago after he attempted to throw a rake at a raccoon, lost his balance, and fell forward onto his outstretched R arm. Now has pain R upper arm (ant aspect) when trying to lift the arm 2. cold hands/feet often. Concerned about low blood sugar, but he does have episodic diarrhea and has lost 6 lbs in a day following diarrhea. Often takes daytime naps. No significant change in weight. no chest pain, DON, cough 3. 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[facility]) - ASHD (arteriosclerotic heart disease) 07/11/05 coronary artery stent - Coronary stent 2000 [place], [place] - Essential hypertension, benign - Hyperuricemia 12/21/2011 - Kidney stone - Other and unspecified hyperlipidemia - Personal history of colonic polyps Colon polyps - Prostatitis, unspecified Prostatitis - 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 For gout. Omeprazole (PRILOSEC) 40 mg capsule 40mg by mouth daily cyanocobalamin (VITAMIN B-12) 1,000 mcg tab 1000 mcg by mouth weekly pseudoephedrine-guaiFENesin (MUCINEX D) 60-600 mg per tablet Take 1 tablet by mouth every 12 hours as needed for Cold/Allergy Symptoms. Cholecalciferol, Vitamin D3, 2,000 unit cap Take 1 tablet by mouth once daily. multivitamins(DAILY VITAMIN TAB) Take one(1) tablet daily BY MOUTH. No current facility-administered medications on file prior to visit. FAMILY HISTORY Problem Relation Age of Onset - Colon Cancer Mother - Heart Father CHF,kidney failure - Heart Daughter Patent ductus arteriosus Social History Substance Use Topics - Smoking status: Former Smoker Years: 25.00 Types: Pipe Quit date: 08/14/2001 - Smokeless tobacco: Never Used - Alcohol use Yes Comment: 2 beers per month BP 100/67 Pulse 65 Resp 18 Wt 73.9 kg (163 lb) BMI 23.87 kg/m? . OBJECTIVE: APPEARANCE Well appearing, alert, in no acute distress, well-hydrated, well nourished. NECK Supple, no adenopathy; thyroid symmetric, normal size, no bruits HEART RRR with normal S1 and S2, no murmurs, no gallops, no JVD appreciated LUNG clear to auscultation EXTREMITIES bulging of R biceps with resisted flexion of R elbow. Mild tenderness ant R shoulder. ASSESSMENT: rupture R biceps tendon episodic lightheadedness due to hypotension AAA--stable , asymptomatic PLAN: change position slowly same medications recommend PT evaluation and treatment CHAYO Hicks MD, III MD CNOV Observed: 01/11/2018 Status: COMPLETED Source: FREER 4:00 PM [facility] REPOSITORY Office Visit (FAMPWS) FILIPPO CHACON ([id number]) 1935 M Date Time Provider Department 01/11/18 4:00 PM KAELA WINKLER III During your visit today, we recorded the following information about you: Pulse Respiration Blood pressure Weight 65/minute 18/minute 100/67 73.9 kg Kaela Winkler III MD 01/11/2018 5:01 PM Signed SUBJECTIVE: This is a 82 year old male that is here today for eval of R shoulder pain that started 2 d. ago after he attempted to throw a rake at a raccoon, lost his balance, and fell forward onto his outstretched R arm. Now has pain R upper arm (ant aspect) when trying to lift the arm 2. cold hands/feet often. Concerned about low blood sugar, but he does have episodic diarrhea and has lost 6 lbs in a day following diarrhea. Often takes daytime naps. No significant change in weight. no chest pain, DON, cough 3. 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[facility]) - ASHD (arteriosclerotic heart disease) 07/11/05 coronary artery stent - Coronary stent [address] [place], [place] - Essential hypertension, benign - Hyperuricemia 12/21/2011 - Kidney stone - Other and unspecified hyperlipidemia - Personal history of colonic polyps Colon polyps - Prostatitis, unspecified Prostatitis - 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 For gout. Omeprazole (PRILOSEC) 40 mg capsule 40mg by mouth daily cyanocobalamin (VITAMIN B-12) 1,000 mcg tab 1000 mcg by mouth weekly pseudoephedrine-guaiFENesin (MUCINEX D) 60-600 mg per tablet Take 1 tablet by mouth every 12 hours as needed for Cold/Allergy Symptoms. Cholecalciferol, Vitamin D3, 2,000 unit cap Take 1 tablet by mouth once daily. multivitamins(DAILY VITAMIN TAB) Take one(1) tablet daily BY MOUTH. No current facility-administered medications on file prior to visit. FAMILY HISTORY Problem Relation Age of Onset - Colon Cancer Mother - Heart Father CHF,kidney failure - Heart Daughter Patent ductus arteriosus Social History Substance Use Topics - Smoking status: Former Smoker Years: 25.00 Types: Pipe Quit date: 08/14/2001 - Smokeless tobacco: Never Used - Alcohol use Yes Comment: 2 beers per month BP 100/67 Pulse 65 Resp 18 Wt 73.9 kg (163 lb) BMI 23.87 kg/m? . OBJECTIVE: APPEARANCE Well appearing, alert, in no acute distress, well- hydrated, well nourished. NECK Supple, no adenopathy; thyroid symmetric, normal size, no bruits HEART RRR with normal S1 and S2, no murmurs, no gallops, no JVD appreciated LUNG clear to auscultation EXTREMITIES bulging of R biceps with resisted flexion of R elbow. Mild tenderness ant R shoulder. ASSESSMENT: rupture R biceps tendon episodic lightheadedness due to hypotension AAA--stable , asymptomatic PLAN: change position slowly same medications recommend PT evaluation and treatment CHAYO Hicks MD, III MD Frank A Cebul, III MD 01/11/2018 4:59 PM Signed PLAN: change position slowly same medications recommend PT evaluation and treatment Kaela Winkler III MD Referring Provider: SELF [[id number]] Allergies As of Date: 01/11/2018 Noted Allergy Reaction CORTISONE 10/18/2010 4 - Hives ADHESIVE TAPE (ROSINS) 04/21/2006 PENICILLINS 04/21/2006 2 - Rash ZOCOR (SIMVASTATIN) 04/05/2013 14 - Other: See Comments Comments: myalgia Date Reviewed: 01/11/2018 Reviewed by: Katie ([facility]) ЕКАТЕРИНА Haider - Fully Assessed Primary Visit Diagnosis:Rupture of right long head biceps tendon, initial encounter [S46.111A] Other Visit Diagnoses: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] Abdominal aortic aneurysm (AAA) without rupture (HCC) [I71.4] Prescriptions as of 01/11/2018 Sig: HYDROCODONE 5 MG-ACETAMINOPHE* Take 1 tablet by mouth every * TAMSULOSIN 0.4 MG CAPSULE TAKE ONE CAPSULE BY MOUTH AT * ALLOPURINOL 100 MG TABLET Take 1 tablet by mouth once d* OMEPRAZOLE 40 MG CAPSULE,DANIELITO* 40mg by mouth daily CYANOCOBALAMIN (VIT B-12) 1,0* 1000 mcg by mouth weekly PSEUDOEPHEDRINE-GUAIFENESIN E* Take 1 tablet by mouth every * CHOLECALCIFEROL (VITAMIN D3) * Take 1 tablet by mouth once d* DAILY VITAMIN TABLET Take one(1) tablet daily BY M* Problem List As Of Date 01/11/2018 Noted Resolved BENIGN HYPERTENSION [I10] 11/24/2014 Hyperlipidemia LDL goal <100 [E78.5] Inflamed seborrheic keratosis [L82.0] INVALID FOR*11/07/2014 Viral warts, unspecified [B07.9] INVALID FOR*11/07/2014 SOLAR LENGINES [L81.9] INVALID FOR*11/07/2014 XEROSIS [L73.8] INVALID FOR*11/07/2014 Other chronic dermatitis due to solar radiation*INVALID FOR*11/07/2014 CA IN SITU COLON [D01.0] INVALID FOR* BENIGN NEOPLASM LG BOWEL [D12.6] INVALID FOR* OTHER PSORIASIS [L40.8] INVALID FOR* Lipoma of unspecified site [D17.9] INVALID FOR*11/07/2014 AAA (abdominal aortic aneurysm) (HCC) [I71.4] INVALID FOR* More... 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 Intractable vomiting with nausea [R11.2] INVALID FOR*11/24/2015 Macrocytic anemia with vitamin B12 deficiency [*INVALID FOR* Renal stones [N20.0] INVALID FOR* Chronic prescription opiate use [Z79.891] INVALID FOR* Campylobacter enteritis [A04.5] INVALID FOR* Rotator cuff syndrome of left shoulder [M75.102]INVALID FOR*01/11/2018 Other instructions from your clinician: PLAN: change position slowly same medications recommend PT evaluation and treatment Kaela Winkler III MD Encounter Status:Closed by KAELA WINKLER III, MD on 01/11/18 PROGRESS Observed: 01/10/2018 Status: COMPLETED Source: FREER 11:54 AM [facility] REPOSIT[facility] HNO ID: [id number] Author: Amy Treadwell LPN Service: (none) Author Type: (none) Type: Progress Notes Filed: 01/10/2018 11:54 AM Note Text: rx ready AND taken to [facility] for pickup. Pt previously notified by [facility] that rx is ready. Amy Treadwell LPN PROGRESS Observed: 01/09/2018 Status: COMPLETED Source: FREER 6:28 PM [facility] RE[facility] HNO ID: [id number] Author: Paul Vance (Rn) Service: (none) Author Type: Registered Nurse Type: Progress Notes Filed: 01/09/2018 6:32 PM Note Text: PRIMARY CARE COORDINATION QUICK NOTE Provider Action/FYI Tct Pt left a vm notified [place] ordered by for tow picker in Medical records Dept. 01/10/18 Patient identified by name and date . Pinky Miller RN January 09, 2018 6:28 PM PROGRESS Observed: 01/09/2018 Status: COMPLETED Source: FREER 6:12 PM [facility] HNO ID: [id number] Author: Kaela Winkler III Service: (none) Author Type: Physician Type: Progress Notes Filed: 01/09/2018 6:32 PM Note Text: OARRS website checked and validated. All prescriptions have been APPROPRIATELY filled. No suspicious activity was identified.- 01/09/2018 by Kaela Winkler III MD PROGRESS Observed: 01/09/2018 Status: COMPLETED Source: FREER 2:11 PM [facility] HNO ID: [id number] Author: Paul Vance (Rn) Service: (none) Author Type: Registered Nurse Type: Progress Notes Filed: 01/09/2018 6:32 PM Note Text: PRIMARY CARE COORDINATION QUICK NOTE Provider Action/FYI 1. Call from Pt requesting a refill of [place]ham to prevent Esophageal spasms, and vomiting, Pt reports as effective, wt is 168 lbs, diet is monitored closely to prevent emesis. Pt states has one pill left. Encouraged adequate fluid intake to prevent dehydration. Pt verbalized understanding. 2. Pt lost his balance, did not fall but caught his right shoulder, and is causing pain, requested appt for eval of shoulder pain . 3. Appt scheduled for 01/11/[address] Winkler Patient identified by name and date . Pinky Miller RN January 09, 2018 2:12 PM CNPTOUTREACH Observed: 01/09/2018 Status: COMPLETED Source: FREER 12:00 AM [facility] REPOSITORY Patient Outreach (FAMPWS) FILIPPO CHACON ([id number]) 1935 M Date Time Provider Department 01/09/18 PAUL VANCE (RN) FAMPWS During your visit today, we recorded the following information about you: Pinky Miller RN 01/09/2018 6:32 PM Signed PRIMARY CARE COORDINATION QUICK NOTE Provider Action/FYI 1. Call from Pt requesting a refill of Markham to prevent Esophageal spasms, and vomiting, Pt reports as effective, wt is 168 lbs, diet is monitored closely to prevent emesis. Pt states has one pill left. Encouraged adequate fluid intake to prevent dehydration. Pt verbalized understanding. 2. Pt lost his balance, did not fall but caught his right shoulder, and is causing pain, requested appt for eval of shoulder pain . 3. Appt scheduled for 01/11/[address] Winkler Patient identified by name and date . Pinky Miller RN January 09, 2018 2:12 PM Kaela Winkler III MD 01/09/2018 6:32 PM Signed OAS website checked and validated. All prescriptions have been APPROPRIATELY filled. No suspicious activity was identified.- 01/09/2018 by CHAYO Hicks MD, RN 01/09/2018 6:32 PM Signed PRIMARY CARE COORDINATION QUICK NOTE Provider Action/FYI Tct Pt left a vm notified [facility] ordered by for tow picker in Medical records Dept. 01/10/18 Patient identified by name and date . Pinky Miller RN January 09, 2018 6:28 PM Amy Treadwell LPN 01/10/2018 11:54 AM Signed rx ready AND taken to [facility] for pickup. Pt previously notified by [facility] that rx is ready. Amy Treadwell LPN Allergies As of Date: 01/09/2018 Noted Allergy Reaction CORTISONE 10/18/2010 4 - Hives ADHESIVE TAPE (ROSINS) 04/21/2006 PENICILLINS 04/21/2006 2 - Rash ZOCOR (SIMVASTATIN) 04/05/2013 14 - Other: See Comments Comments: myalgia Date Reviewed: 09/01/2017 Reviewed by: Katie ([facility]) ЕКАТЕРИНА Haider - Fully Assessed Reason for Visit: It Security Consulting Director Chronic Care [[id number]] Cmt: Medication refill/ Appt Reason For Visit History Recorded Visit Diagnoses: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] Esophageal spasm [K22.4] Order(s):HYDROcodone-acetaminophen (NORCO) 5-325 mg per tabletTake 1 tablet by mouth every 6 hours as needed for Pain (or esophageal spasm) for up to 30 days. Earliest Fill Date: 01/09/18Disp: 30 tabletRfl: 0 Prescriptions as of 01/09/2018 Sig: HYDROCODONE 5 MG-ACETAMINOPHE* Take 1 tablet by mouth every * TAMSULOSIN 0.4 MG CAPSULE TAKE ONE CAPSULE BY MOUTH AT * ALLOPURINOL 100 MG TABLET Take 1 tablet by mouth once d* OMEPRAZOLE 40 MG CAPSULE,DANIELITO* 40mg by mouth daily CYANOCOBALAMIN (VIT B-12) 1,0* 1000 mcg by mouth weekly PSEUDOEPHEDRINE-GUAIFENESIN E* Take 1 tablet by mouth every * CHOLECALCIFEROL (VITAMIN D3) * Take 1 tablet by mouth once d* DAILY VITAMIN TABLET Take one(1) tablet daily BY M* Problem List As Of Date 01/09/2018 Noted Resolved BENIGN HYPERTENSION [I10] 11/24/2014 Hyperlipidemia LDL goal <100 [E78.5] Inflamed seborrheic keratosis [L82.0] INVALID FOR*11/07/2014 Viral warts, unspecified [B07.9] INVALID FOR*11/07/2014 SOLAR LENGINES [L81.9] INVALID FOR*11/07/2014 XEROSIS [L73.8] INVALID FOR*11/07/2014 Other chronic dermatitis due to solar radiation*INVALID FOR*11/07/2014 CA IN SITU COLON [D01.0] INVALID FOR* BENIGN NEOPLASM LG BOWEL [D12.6] INVALID FOR* OTHER PSORIASIS [L40.8] INVALID FOR* Lipoma of unspecified site [D17.9] INVALID FOR*11/07/2014 AAA (abdominal aortic aneurysm) (HCC) [I71.4] INVALID FOR* More... 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 Intractable vomiting with nausea [R11.2] INVALID FOR*11/24/2015 Macrocytic anemia with vitamin B12 deficiency [*INVALID FOR* Renal stones [N20.0] INVALID FOR* Chronic prescription opiate use [Z79.891] INVALID FOR* Campylobacter enteritis [A04.5] INVALID FOR* Rotator cuff syndrome of left shoulder [M75.102]INVALID FOR* Prescriptions ordered this encounter Disp Refills Start End HYDROCODONE 5 MG-ACETAMINOPHEN 325 M* 30 t* 0 01/09/2018 02/08/2018 Class: Print RX Route: ORAL Sig: Take 1 tablet by mouth every 6 hours as needed for Pain (or esophageal spasm) for up to 30 days. Earliest Fill Date: 01/09/18 Medications Discontinued During This Encounter HYDROcodone-acetaminophen (NORCO) 5-* 30 t* 0 11/20/2017 01/09/2018 Class: Print RX Route: ORAL Sig: Take 1 tablet by mouth every 6 hours as needed for Pain (or esophageal spasm) for up to 30 days. Disc: Reason for discontinue is not on file. Encounter Status:Closed by PINKY MILLER on 01/09/18 PROGRESS Observed: 01/01/2018 Status: COMPLETED Source: FREER 4:42 PM [facility] REPOSITORY HNO ID: [id number] Author: Paul Vance (Rn) Service: (none) Author Type: Registered Nurse Type: Progress Notes Filed: 01/05/2018 1:38 PM Note Text: PRIMARY CARE COORDINATION QUICK NOTE Provider Action/FYI Call from Pt who wants to verify if Dr. Golden wants lab work and or CT prior to appt 01/11/18 for 6 mth Ov f/u, if so please place orders. Patient identified by name and date . Pinky Miller RN January 01, 2018 4:43 PM CNPTOUTREAENRICO Observed: 01/01/2018 Status: COMPLETED Source: FREER 12:00 AM [facility] REPOSITORY Patient Outreach (FAMPWS) FILIPPO CHACON ([id number]) 1935 M Date Time Provider Department 01/01/18 PAUL VANCE (RN) JJWS During your visit today, we recorded the following information about you: Pinky Miller RN 01/05/2018 1:38 PM Signed PRIMARY CARE COORDINATION QUICK NOTE Provider Action/FYI Call from Pt who wants to verify if Dr. Golden wants lab work and or CT prior to appt 01/11/18 for 6 mth Ov f/u, if so please place orders. Patient identified by name and date . Pinky Miller RN January 01, 2018 4:43 PM Allergies As of Date: 01/01/2018 Noted Allergy Reaction CORTISONE 10/18/2010 4 - Hives ADHESIVE TAPE (ROSINS) 04/21/2006 PENICILLINS 04/21/2006 2 - Rash ZOCOR (SIMVASTATIN) 04/05/2013 14 - Other: See Comments Comments: myalgia Date Reviewed: 09/01/2017 Reviewed by: Katie ([facility]) ЕКАТЕРИНА Haider - Fully Assessed Reason for Visit: It Security Consulting Director Chronic Care [[id number]] Cmt: Upcoming Appt question Reason For Visit History Recorded Prescriptions as of 01/01/2018 Sig: TAMSULOSIN 0.4 MG CAPSULE TAKE ONE CAPSULE BY MOUTH AT * ALLOPURINOL 100 MG TABLET Take 1 tablet by mouth once d* OMEPRAZOLE 40 MG CAPSULE,DANIELITO* 40mg by mouth daily CYANOCOBALAMIN (VIT B-12) 1,0* 1000 mcg by mouth weekly PSEUDOEPHEDRINE-GUAIFENESIN E* Take 1 tablet by mouth every * CHOLECALCIFEROL (VITAMIN D3) * Take 1 tablet by mouth once d* DAILY VITAMIN TABLET Take one(1) tablet daily BY M* Problem List As Of Date 01/01/2018 Noted Resolved BENIGN HYPERTENSION [I10] 11/24/2014 Hyperlipidemia LDL goal <100 [E78.5] Inflamed seborrheic keratosis [L82.0] INVALID FOR*11/07/2014 Viral warts, unspecified [B07.9] INVALID FOR*11/07/2014 SOLAR LENGINES [L81.9] INVALID FOR*11/07/2014 XEROSIS [L73.8] INVALID FOR*11/07/2014 Other chronic dermatitis due to solar radiation*INVALID FOR*11/07/2014 CA IN SITU COLON [D01.0] INVALID FOR* BENIGN NEOPLASM LG BOWEL [D12.6] INVALID FOR* OTHER PSORIASIS [L40.8] INVALID FOR* Lipoma of unspecified site [D17.9] INVALID FOR*11/07/2014 AAA (abdominal aortic aneurysm) (HCC) [I71.4] INVALID FOR* More... 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 Intractable vomiting with nausea [R11.2] INVALID FOR*11/24/2015 Macrocytic anemia with vitamin B12 deficiency [*INVALID FOR* Renal stones [N20.0] INVALID FOR* Chronic prescription opiate use [Z79.891] INVALID FOR* Campylobacter enteritis [A04.5] INVALID FOR* Rotator cuff syndrome of left shoulder [M75.102]INVALID FOR* Encounter Status:Closed by PINKY MILLER on 01/05/18 PROGRESS Observed: 12/14/2017 Status: COMPLETED Source: FREER 5:18 PM [facility] RE[facility] HNO ID: [id number] Author: (Rn)Paul Service: (none) Author Type: Registered Nurse Type: Progress Notes Filed: 12/14/2017 5:23 PM Note Text: PRIMARY CARE COORDINATION QUICK NOTE Provider Action/FYI Call from raphael Winters per Cristo Simons CNP - Because he is now having symptoms it is likely the illness is viral. I would empirically treat him with Doxycycline, however, he has cortisone listed as an allergy. He can also use OTC cough medication such as Robitussin DM to help with sx relief. Pt verbalized understanding. Patient identified by name and date . Pinky Miller RN December 14, 2017 5:19 PM PROGRESS Observed: 12/14/2017 Status: COMPLETED Source: FREER 3:20 PM [facility] REPOSITORY HNO ID: [id number] Author: Stella Pierre Ma Service: (none) Author Type: (none) Type: Progress Notes Filed: 12/14/2017 5:23 PM Note Text: Message left for pt to call back. Stella Pierre MA PROGRESS Observed: 12/14/2017 Status: COMPLETED Source: FREER 2:31 PM [facility] REPOSITORY HNO ID: [id number] Author: Aj Simons (Grades 1 Thru 6 Visiting Teacher) Service: (none) Author Type: Nurse Practitioner Type: Progress Notes Filed: 12/14/2017 5:23 PM Note Text: Because he is now having symptoms it is likely the illness is viral. I would empirically treat him with Doxycycline, however, he has cortisone listed as an allergy. He can also use OTC cough medication such as Robitussin DM to help with sx relief. The following approved medication requests have been transmitted electronically. Signed Prescriptions Disp Refills doxycycline monohydrate (MONODOX) 100 mg capsule 20 capsule 0 Sig: Take 1 capsule by mouth twice daily for 10 days. Aj Simons, MSN EXTERIOR DESIGNER.ALUMINUM SIDING MECHANIC PROGRESS Observed: 12/14/2017 Status: COMPLETED Source: FREER 2:08 PM [facility] REPOSITORY HNO ID: [id number] Author: (Jigar)Paul Service: (none) Author Type: Registered Nurse Type: Progress Notes Filed: 12/14/2017 5:23 PM Note Text: PRIMARY CARE COORDINATION QUICK NOTE Provider Action/FYI Call from Pt with similar symptoms of nonproductive frequent cough, congestion, denies fever denies CP or Sob, has a frequent runny nose with sneezing, light yellow drainage, small amount of wheeziness. No OTC used, noted Jnony treated with Prednisone and Doxycycline, and wanted to verify if he should treated as well, or what is recommended? Patient identified by name and date . Pinky Miller RN December 14, 2017 2:09 PM CNPTOUTREAENRICO Observed: 12/14/2017 Status: COMPLETED Source: FREER 12:00 AM [facility] REPOSITORY Patient Outreach (FAMPWS) FILIPPO CHACON ([id number]) 1935 M Date Time Provider Department 12/14/17 PAUL VANCE (JIGAR) FAMPWS During your visit today, we recorded the following information about you: (Jigar)Paul 12/14/2017 5:23 PM Signed PRIMARY CARE COORDINATION QUICK NOTE Provider Action/FYI Call from Pt with similar symptoms of nonproductive frequent cough, congestion, denies fever denies CP or Sob, has a frequent runny nose with sneezing, light yellow drainage, small amount of wheeziness. No OTC used, noted Jonny treated with Prednisone and Doxycycline, and wanted to verify if he should treated as well, or what is recommended? Patient identified by name and date . Pinky Miller RN December 14, 2017 2:09 PM Aj Simons (Grades 1 Thru 6 Visiting Teacher) 12/14/2017 5:23 PM Signed Because he is now having symptoms it is likely the illness is viral. I would empirically treat him with Doxycycline, however, he has cortisone listed as an allergy. He can also use OTC cough medication such as Robitussin DM to help with sx relief. The following approved medication requests have been transmitted electronically. Signed Prescriptions Disp Refills doxycycline monohydrate (MONODOX) 100 mg capsule 20 capsule 0 Sig: Take 1 capsule by mouth twice daily for 10 days. Aj Simons, MSN EXTERIOR DESIGNER.Stella Hill Ma 12/14/2017 5:23 PM Signed Message left for pt to call back. Stella Pierre MA (Rn), Paul Vance 12/14/2017 5:23 PM Signed PRIMARY CARE COORDINATION QUICK NOTE Provider Action/FYI Call from Singh, instructed per Cristo Simons CNP - Because he is now having symptoms it is likely the illness is viral. I would empirically treat him with Doxycycline, however, he has cortisone listed as an allergy. He can also use OTC cough medication such as Robitussin DM to help with sx relief. Pt verbalized understanding. Patient identified by name and date . Pinky Miller RN December 14, 2017 5:19 PM Allergies As of Date: 12/14/2017 Noted Allergy Reaction CORTISONE 10/18/2010 4 - Hives ADHESIVE TAPE (ROSINS) 04/21/2006 PENICILLINS 04/21/2006 2 - Rash ZOCOR (SIMVASTATIN) 04/05/2013 14 - Other: See Comments Comments: myalgia Date Reviewed: 09/01/2017 Reviewed by: Katie Haider ([facility])ЕКАТЕРИНА - Fully Assessed Reason for Visit: It Security Consulting Director - Patient Initiated [3559] Cmt: Cough, Congestion Order(s):doxycycline monohydrate (MONODOX) 100 mg capsuleTake 1 capsule by mouth twice daily for 10 days.Disp: 20 capsuleRfl: 0 Prescriptions as of 12/14/2017 Sig: DOXYCYCLINE MONOHYDRATE 100 M* Take 1 capsule by mouth twice* HYDROCODONE 5 MG-ACETAMINOPHE* Take 1 tablet by mouth every * TAMSULOSIN 0.4 MG CAPSULE TAKE ONE CAPSULE BY MOUTH AT * ALLOPURINOL 100 MG TABLET Take 1 tablet by mouth once d* OMEPRAZOLE 40 MG CAPSULE,DANIELITO* 40mg by mouth daily CYANOCOBALAMIN (VIT B-12) 1,0* 1000 mcg by mouth weekly PSEUDOEPHEDRINE-GUAIFENESIN E* Take 1 tablet by mouth every * CHOLECALCIFEROL (VITAMIN D3) * Take 1 tablet by mouth once d* DAILY VITAMIN TABLET Take one(1) tablet daily BY M* Problem List As Of Date 12/14/2017 Noted Resolved BENIGN HYPERTENSION [I10] 11/24/2014 Hyperlipidemia LDL goal <100 [E78.5] Inflamed seborrheic keratosis [L82.0] INVALID FOR*11/07/2014 Viral warts, unspecified [B07.9] INVALID FOR*11/07/2014 SOLAR LENGINES [L81.9] INVALID FOR*11/07/2014 XEROSIS [L73.8] INVALID FOR*11/07/2014 Other chronic dermatitis due to solar radiation*INVALID FOR*11/07/2014 CA IN SITU COLON [D01.0] INVALID FOR* BENIGN NEOPLASM LG BOWEL [D12.6] INVALID FOR* OTHER PSORIASIS [L40.8] INVALID FOR* Lipoma of unspecified site [D17.9] INVALID FOR*11/07/2014 AAA (abdominal aortic aneurysm) (HCC) [I71.4] INVALID FOR* More... 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 Intractable vomiting with nausea [R11.2] INVALID FOR*11/24/2015 Macrocytic anemia with vitamin B12 deficiency [*INVALID FOR* Renal stones [N20.0] INVALID FOR* Chronic prescription opiate use [Z79.891] INVALID FOR* Campylobacter enteritis [A04.5] INVALID FOR* Rotator cuff syndrome of left shoulder [M75.102]INVALID FOR* Prescriptions ordered this encounter Disp Refills Start End DOXYCYCLINE MONOHYDRATE 100 MG CAPSU* 20 c* 0 12/14/2017 12/24/2017 Route: ORAL Sig: Take 1 capsule by mouth twice daily for 10 days. Encounter Status:Closed by PINKY MILLER on 12/14/17 PROGRESS Observed: 11/30/2017 Status: COMPLETED Source: F[place] 2:18 PM [facility] REPOSITORY HNO ID: [id number] Author: Paul Vance (Rn) Service: (none) Author Type: Registered Nurse Type: Progress Notes Filed: 11/30/2017 2:25 PM Note Text: PRIMARY CARE COORDINATION QUICK NOTE Provider Action/FYI Spk with Jonny noted per Aj Simons CONTINUITY WRITER If nausea and vomiting are not improving then recommend ED for IV fluids and electrolyte replacement. Jonny verbalized understanding. Patient identified by name and date . Pinky Miller RN November 30, 2017 2:18 PM PROGRESS Observed: 11/30/2017 Status: COMPLETED Source: FREER 12:36 PM [facility] REPOSITORY HNO ID: [id number] Author: Aj Clemens (Grades 1 Thru 6 Visiting TeacherAkilah Simons Service: (none) Author Type: Nurse Practitioner Type: Progress Notes Filed: 11/30/2017 2:25 PM Note Text: Noted. Is nausea and vomiting are not improving then recommend ED for IV fluids and electrolyte replacement. The following approved medication requests have been transmitted electronically. Signed Prescriptions Disp Refills ondansetron orally disintegrating (ZOFRAN ODT) 4 mg disintegrating tablet 20 tablet 0 Sig: Take 1 tablet by mouth every 8 hours as needed for up to 5 days. YESY: No Aj Simons, MSN EXTERIOR DESIGNER.ALUMINUM SIDING MECHANIC PROGRESS Observed: 11/30/2017 Status: COMPLETED Source: F[place] 10:20 AM [facility] REPOSITORY HNO ID: [id number] Author: Paul Vance (Rn) Service: (none) Author Type: Registered Nurse Type: Progress Notes Filed: 11/30/2017 2:25 PM Note Text: PRIMARY CARE COORDINATION QUICK NOTE Provider Action/FYI Hx: Total Gastrectomy 1. Pt called, reports nausea and vomiting 10 times yesterday with small amounts each time, has body aches, denies diarrhea or temp or other symptoms, reports. couldn't keep fluids down. Urine is light colored, was able today to take po medications without vomiting. Encouraged Pt to try small amounts of gatorade or Powerade to increase fluid intake. Pt verbalized understanding 2. Is requesting something for the Nausea he has taken both phenergan and Zofran previously. Patient identified by name and date . Pinky Miller RN November 30, 2017 10:20 AM CNPTOUTRSAVAGE Observed: 11/30/2017 Status: COMPLETED Source: FREER 12:00 AM [facility] REPOSITORY Patient Outreach (FAMPWS) FILIPPO CHACON ([id number]) 1935 M Date Time Provider Department 11/30/17 PAUL VANCE (RN) FAMPWS During your visit today, we recorded the following information about you: Pinky Miller RN 11/30/2017 2:25 PM Signed PRIMARY CARE COORDINATION QUICK NOTE Provider Action/FYI Hx: Total Gastrectomy 1. Pt called, reports nausea and vomiting 10 times yesterday with small amounts each time, has body aches, denies diarrhea or temp or other symptoms, reports. couldn't keep fluids down. Urine is light colored, was able today to take po medications without vomiting. Encouraged Pt to try small amounts of gatorade or Powerade to increase fluid intake. Pt verbalized understanding 2. Is requesting something for the Nausea he has taken both phenergan and Zofran previously. Patient identified by name and date . Pinky Miller RN November 30, 2017 10:20 AM Aj Simons MSN EXTERIOR DESIGNER.ALUMINUM SIDING MECHANIC 11/30/2017 2:25 PM Signed Noted. Is nausea and vomiting are not improving then recommend ED for IV fluids and electrolyte replacement. The following approved medication requests have been transmitted electronically. Signed Prescriptions Disp Refills ondansetron orally disintegrating (ZOFRAN ODT) 4 mg disintegrating tablet 20 tablet 0 Sig: Take 1 tablet by mouth every 8 hours as needed for up to 5 days. YESY: No Aj Simons, MSN EXTERIOR DESIGNER.CHANTALE Miller RN 11/30/2017 2:25 PM Signed PRIMARY CARE COORDINATION QUICK NOTE Provider Action/FYI Spk with Jonny noted per Aj Simons CONTINUITY WRITER If nausea and vomiting are not improving then recommend ED for IV fluids and electrolyte replacement. Jonny verbalized understanding. Patient identified by name and date . Pinky Miller RN November 30, 2017 2:18 PM Allergies As of Date: 11/30/2017 Noted Allergy Reaction CORTISONE 10/18/2010 4 - Hives ADHESIVE TAPE (ROSINS) 04/21/2006 PENICILLINS 04/21/2006 2 - Rash ZOCOR (SIMVASTATIN) 04/05/2013 14 - Other: See Comments Comments: myalgia Date Reviewed: 09/01/2017 Reviewed by: Katie ([facility]) ЕКАТЕРИНА Haidre - Fully Assessed Reason for Visit: It Security Consulting Director - Patient Initiated [3614] Cmt: Nausea, vomiting Primary Visit Diagnosis:Nausea and vomiting, intractability of vomiting not specified, unspecified vomiting type [R11.2] Order(s):ondansetron orally disintegrating (ZOFRAN ODT) 4 mg disintegrating tabletTake 1 tablet by mouth every 8 hours as needed for up to 5 days.Disp: 20 tabletRfl: 0 Prescriptions as of 11/30/2017 Sig: ONDANSETRON 4 MG DISINTEGRATI* Take 1 tablet by mouth every * HYDROCODONE 5 MG-ACETAMINOPHE* Take 1 tablet by mouth every * TAMSULOSIN 0.4 MG CAPSULE TAKE ONE CAPSULE BY MOUTH AT * ALLOPURINOL 100 MG TABLET Take 1 tablet by mouth once d* OMEPRAZOLE 40 MG CAPSULE,DANIELITO* 40mg by mouth daily CYANOCOBALAMIN (VIT B-12) 1,0* 1000 mcg by mouth weekly PSEUDOEPHEDRINE-GUAIFENESIN E* Take 1 tablet by mouth every * CHOLECALCIFEROL (VITAMIN D3) * Take 1 tablet by mouth once d* DAILY VITAMIN TABLET Take one(1) tablet daily BY M* Problem List As Of Date 11/30/2017 Noted Resolved BENIGN HYPERTENSION [I10] 11/24/2014 Hyperlipidemia LDL goal <100 [E78.5] Inflamed seborrheic keratosis [L82.0] INVALID FOR*11/07/2014 Viral warts, unspecified [B07.9] INVALID FOR*11/07/2014 SOLAR LENGINES [L81.9] INVALID FOR*11/07/2014 XEROSIS [L73.8] INVALID FOR*11/07/2014 Other chronic dermatitis due to solar radiation*INVALID FOR*11/07/2014 CA IN SITU COLON [D01.0] INVALID FOR* BENIGN NEOPLASM LG BOWEL [D12.6] INVALID FOR* OTHER PSORIASIS [L40.8] INVALID FOR* Lipoma of unspecified site [D17.9] INVALID FOR*11/07/2014 AAA (abdominal aortic aneurysm) (HCC) [I71.4] INVALID FOR* More... 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 Intractable vomiting with nausea [R11.2] INVALID FOR*11/24/2015 Macrocytic anemia with vitamin B12 deficiency [*INVALID FOR* Renal stones [N20.0] INVALID FOR* Chronic prescription opiate use [Z79.891] INVALID FOR* Campylobacter enteritis [A04.5] INVALID FOR* Rotator cuff syndrome of left shoulder [M75.102]INVALID FOR* Prescriptions ordered this encounter Disp Refills Start End ONDANSETRON 4 MG DISINTEGRATING TABL* 20 t* 0 11/30/2017 12/05/2017 Route: ORAL Sig: Take 1 tablet by mouth every 8 hours as needed for up to 5 days. Medications Discontinued During This Encounter ondansetron orally disintegrating (Z* 6 ta* 0 05/26/2017 11/30/2017 Route: ORAL Sig: Take 1 tablet by mouth every 8 hours as needed for up to 2 days. Disc: Reason for discontinue is not on file. Encounter Status:Closed by PINKY MILLER on 11/30/17 PROGRESS Observed: 11/20/2017 Status: COMPLETED Source: F[place] 4:33 PM [facility] REPOSITORY HNO ID: [id number] Author: Stella Pierre Ma Service: (none) Author Type: (none) Type: Progress Notes Filed: 11/20/2017 4:34 PM Note Text: rx at med rec. PROGRESS Observed: 11/20/2017 Status: COMPLETED Source: FREER 3:37 PM [facility] REPOSITORY HNO ID: [id number] Author: Westley Watkins Service: (none) Author Type: Physician Type: Progress Notes Filed: 11/20/2017 4:34 PM Note Text: OK for Markham as ordered Westley Watkins MD PROGRESS Observed: 11/20/2017 Status: COMPLETED Source: F[place] 1:15 PM [facility] REPOSITORY HNO ID: [id number] Author: Paul Vance (Rn) Service: (none) Author Type: Registered Nurse Type: Progress Notes Filed: 11/20/2017 4:34 PM Note Text: PRIMARY CARE COORDINATION QUICK NOTE Provider Action/FYI Tcf Pt who is requesting a refill of Markham, reports he is maintaining his weight at 165-168 lbs, has an occasional flare up of vomiting with meals, Filippo is taking 1/2 -1 Markham daily for esophageal spasms which is effective, reports has only rare periods of vomiting. Hx : Gastric adenocarcinoma with Total Gastrectomy No additional needs or concerns. Patient identified by name and date . Pinky Miller RN November 20, 2017 1:15 PM [facility] Observed: 11/20/2017 Status: COMPLETED Source: FREER 12:00 AM [facility] REPOSITORY Patient Outreach (FAMPWS) FILIPPO CHACON ([id number]) 1935 M Date Time Provider Department 11/20/17 PAUL VANCE (RN) FAMPWS During your visit today, we recorded the following information about you: Pinky Miller RN 11/20/2017 4:34 PM Signed PRIMARY CARE COORDINATION QUICK NOTE Provider Action/ASH Roman Pt who is requesting a refill of Markham, reports he is maintaining his weight at 165-168 lbs, has an occasional flare up of vomiting with meals, Filippo is taking 1/2 -1 Markham daily for esophageal spasms which is effective, reports has only rare periods of vomiting. Hx : Gastric adenocarcinoma with Total Gastrectomy No additional needs or concerns. Patient identified by name and date . Pinky Miller RN November 20, 2017 1:15 PM Westley Watkins MD 11/20/2017 4:34 PM Signed OK for Markham as ordered MD Stella Delong Ma 11/20/2017 4:34 PM Signed rx at med rec. 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] Esophageal spasm [K22.4] Order(s):HYDROcodone-acetaminophen (NORCO) 5-325 mg per tabletTake 1 tablet by mouth every 6 hours as needed for Pain (or esophageal spasm) for up to 30 days.Disp: 30 tabletRfl: 0 Prescriptions as of 11/20/2017 Sig: HYDROCODONE 5 MG-ACETAMINOPHE* Take 1 tablet by mouth every * TAMSULOSIN 0.4 MG CAPSULE TAKE ONE CAPSULE BY MOUTH AT * ALLOPURINOL 100 MG TABLET Take 1 tablet by mouth once d* OMEPRAZOLE 40 MG CAPSULE,DANIELITO* 40mg by mouth daily CYANOCOBALAMIN (VIT B-12) 1,0* 1000 mcg by mouth weekly PSEUDOEPHEDRINE-GUAIFENESIN E* Take 1 tablet by mouth every * CHOLECALCIFEROL (VITAMIN D3) * Take 1 tablet by mouth once d* DAILY VITAMIN TABLET Take one(1) tablet daily BY M* Problem List As Of Date 11/20/2017 Noted Resolved BENIGN HYPERTENSION [I10] 11/24/2014 Hyperlipidemia LDL goal <100 [E78.5] Inflamed seborrheic keratosis [L82.0] INVALID FOR*11/07/2014 Viral warts, unspecified [B07.9] INVALID FOR*11/07/2014 SOLAR LENGINES [L81.9] INVALID FOR*11/07/2014 XEROSIS [L73.8] INVALID FOR*11/07/2014 Other chronic dermatitis due to solar radiation*INVALID FOR*11/07/2014 CA IN SITU COLON [D01.0] INVALID FOR* BENIGN NEOPLASM LG BOWEL [D12.6] INVALID FOR* OTHER PSORIASIS [L40.8] INVALID FOR* Lipoma of unspecified site [D17.9] INVALID FOR*11/07/2014 AAA (abdominal aortic aneurysm) (HCC) [I71.4] INVALID FOR* More... 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 Intractable vomiting with nausea [R11.2] INVALID FOR*11/24/2015 Macrocytic anemia with vitamin B12 deficiency [*INVALID FOR* Renal stones [N20.0] INVALID FOR* Chronic prescription opiate use [Z79.891] INVALID FOR* Campylobacter enteritis [A04.5] INVALID FOR* Rotator cuff syndrome of left shoulder [M75.102]INVALID FOR* Prescriptions ordered this encounter Disp Refills Start End HYDROCODONE 5 MG-ACETAMINOPHEN 325 M* 30 t* 0 11/20/2017 12/20/2017 Class: Print RX Route: ORAL Sig: Take 1 tablet by mouth every 6 hours as needed for Pain (or esophageal spasm) for up to 30 days. Medications Discontinued During This Encounter HYDROcodone-acetaminophen (NORCO) 5-* 30 t* 0 10/12/2017 11/20/2017 Class: Print RX Route: ORAL Sig: Take 1 tablet by mouth every 6 hours as needed for Pain (or esophageal spasm) for up to 30 days. Disc: Reason for discontinue is not on file. Encounter Status:Closed by STELLA PIERRE MA on 11/20/17 PROGRESS Observed: 10/31/2017 Status: COMPLETED Source: FREER 9:28 AM [facility] REPOSITORY HNO ID: [id number] Author: Kaela Winkler III Service: (none) Author Type: Physician Type: Progress Notes Filed: 10/31/2017 9:28 AM Note Text: Filippo, Good news--stool is negative for C dificile. Has your diarrhea improved? Kaela Winkler III MD C DIFFICILE PCR Collected: 10/13/2017 Status: F Source: FREER 9:00 PM [facility] REPOSITORY TYPE CODE TESTS RESULT OUT OF REFERENCE UNITS RANGE LAB CDFRES C difficile PCR Negative for C. difficile toxin by PCR Performed By: #### CDPCR #### [facility] [address] [place], [place] [address] PROGRESS Observed: 10/12/2017 Status: COMPLETED Source: FREER 1:40 PM [facility] REPOSITORY HNO ID: [id number] Author: Colleen Britton Ma Service: (none) Author Type: (none) Type: Progress Notes Filed: 10/12/2017 1:41 PM Note Text: rx ready and will be ready taken to the desk reporter shortly. Pt notified Colleen Britton Ma PROGRESS Observed: 10/12/2017 Status: COMPLETED Source: FREER 1:26 PM [facility] REPOSITORY HNO ID: [id number] Author: Aj Clemens (Deisy) Ronak Service: (none) Author Type: Nurse Practitioner Type: Progress Notes Filed: 10/12/2017 1:41 PM Note Text: Patient's request for medication is as follows: Signed Prescriptions Disp Refills HYDROcodone-acetaminophen (NORCO) 5-325 mg per tablet 30 tablet 0 Sig: Take 1 tablet by mouth every 6 hours as needed for Pain (or esophageal spasm) for up to 30 days. MATTHEW Class: C-II YSEY: No OARRS website checked and validated. All prescriptions have been APPROPRIATELY filled. No suspicious activity was identified.- 10/12/2017 by TEVIN Terry ALUMINUM SIDING MECHANIC Prescription(s) as above. Please process accordingly. TEVIN Terry ALUMINUM SIDING MECHANIC PROGRESS Observed: 10/12/2017 Status: COMPLETED Source: F[place]ER 12:23 PM [facility] REPOSITORY HNO ID: [id number] Author: Paul Vance (Rn) Service: (none) Author Type: Registered Nurse Type: Progress Notes Filed: 10/12/2017 1:41 PM Note Text: PRIMARY CARE COORDINATION QUICK NOTE Provider Action/FYI Tcf Pt requesting Markham to prevent Esophageal spasms, Hx Total Gastrectomy, takes 1/2 tablet as needed to prevent spasms, which then cause him to vomit. Pr reports he is feeling better, denies any further episodes of diarrhea, denies any additional needs or concerns. Patient identified by name and date . Pinky Miller RN October 12, 2017 12:24 PM KWAME Observed: 10/12/2017 Status: COMPLETED Source: FREER 12:00 AM [facility] REPOSITORY Patient Outreach (FAMPWS) FILIPPO CHACON ([id number]) 1935 M Date Time Provider Department 10/12/17 PAUL VANCE (JIGAR) FAMPWS During your visit today, we recorded the following information about you: Pinky Miller RN 10/12/2017 1:41 PM Signed PRIMARY CARE COORDINATION QUICK NOTE Provider Action/FYI Tcf Pt requesting Markham to prevent Esophageal spasms, Hx Total Gastrectomy, takes 1/2 tablet as needed to prevent spasms, which then cause him to vomit. Pr reports he is feeling better, denies any further episodes of diarrhea, denies any additional needs or concerns. Patient identified by name and date . Pinky Miller RN October 12, 2017 12:24 PM TEVIN Terry CNP 10/12/2017 1:41 PM Signed Patient's request for medication is as follows: Signed Prescriptions Disp Refills HYDROcodone-acetaminophen (NORCO) 5-325 mg per tablet 30 tablet 0 Sig: Take 1 tablet by mouth every 6 hours as needed for Pain (or esophageal spasm) for up to 30 days. MATTHEW Class: C-II YESY: No OARRS website checked and validated. All prescriptions have been APPROPRIATELY filled. No suspicious activity was identified.- 10/12/2017 by TEVIN Terry CNP Prescription(s) as above. Please process accordingly. TEVIN Terry CNP, Ma 10/12/2017 1:41 PM Signed rx ready and will be ready taken to the desk reporter shortly. 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] Esophageal spasm [K22.4] Order(s):HYDROcodone-acetaminophen (NORCO) 5-325 mg per tabletTake 1 tablet by mouth every 6 hours as needed for Pain (or esophageal spasm) for up to 30 days.Disp: 30 tabletRfl: 0 Prescriptions as of 10/12/2017 Sig: HYDROCODONE 5 MG-ACETAMINOPHE* Take 1 tablet by mouth every * TAMSULOSIN 0.4 MG CAPSULE TAKE ONE CAPSULE BY MOUTH AT * ALLOPURINOL 100 MG TABLET Take 1 tablet by mouth once d* OMEPRAZOLE 40 MG CAPSULE,DANIELITO* 40mg by mouth daily CYANOCOBALAMIN (VIT B-12) 1,0* 1000 mcg by mouth weekly PSEUDOEPHEDRINE-GUAIFENESIN E* Take 1 tablet by mouth every * CHOLECALCIFEROL (VITAMIN D3) * Take 1 tablet by mouth once d* DAILY VITAMIN TABLET Take one(1) tablet daily BY M* Problem List As Of Date 10/12/2017 Noted Resolved BENIGN HYPERTENSION [I10] 11/24/2014 Hyperlipidemia LDL goal <100 [E78.5] Inflamed seborrheic keratosis [L82.0] INVALID FOR*11/07/2014 Viral warts, unspecified [B07.9] INVALID FOR*11/07/2014 SOLAR LENGINES [L81.9] INVALID FOR*11/07/2014 XEROSIS [L73.8] INVALID FOR*11/07/2014 Other chronic dermatitis due to solar radiation*INVALID FOR*11/07/2014 CA IN SITU COLON [D01.0] INVALID FOR* BENIGN NEOPLASM LG BOWEL [D12.6] INVALID FOR* OTHER PSORIASIS [L40.8] INVALID FOR* Lipoma of unspecified site [D17.9] INVALID FOR*11/07/2014 AAA (abdominal aortic aneurysm) (HCC) [I71.4] INVALID FOR* More... 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 Intractable vomiting with nausea [R11.2] INVALID FOR*11/24/2015 Macrocytic anemia with vitamin B12 deficiency [*INVALID FOR* Renal stones [N20.0] INVALID FOR* Chronic prescription opiate use [Z79.891] INVALID FOR* Campylobacter enteritis [A04.5] INVALID FOR* Rotator cuff syndrome of left shoulder [M75.102]INVALID FOR* Prescriptions ordered this encounter Disp Refills Start End HYDROCODONE 5 MG-ACETAMINOPHEN 325 M* 30 t* 0 10/12/2017 11/11/2017 Class: Print RX Route: ORAL Sig: Take 1 tablet by mouth every 6 hours as needed for Pain (or esophageal spasm) for up to 30 days. Medications Discontinued During This Encounter HYDROcodone-acetaminophen (NORCO) 5-* 30 t* 0 08/31/2017 10/12/2017 Class: Print RX Route: ORAL Sig: Take 1 tablet by mouth every 6 hours as needed for Pain (or esophageal spasm) for up to 30 days. Disc: Reason for discontinue is not on file. Encounter Status:Closed by COLLEEN BRITTON MA on 10/12/17 CARDIOLOGY VISIT Observed: 09/26/2017 Status: F Source: ANA LAURA REPORT 11:12 AM [facility] REPOSITORY [facility] [address] [place] [address] OFFICE VISIT Date of Service: 07/20/17 MR#: [id number] Acct: [id number] Name: FILIPPO CHACON Rep #: [id number] : 1935 Provider: Mikhail Moran MD Age/Sex: 81/M [place] [facility] [place]: Signed HPI RESTABLISH CARE: Details: FILIPPO CHACON, is a 81 M who presents to the office today for reestablishment of cardiovascular care with the [facility] for multiple cardiovascular concerns including a history of underlying CAD, PCI, aortic valve disease/stenosis, hyperlipidemia, hypertension, and abdominal aortic aneurysm. His last outpatient cardiovascular visit with the office was on 10/11/2013. Since that time the patient states he has not had to go through additional cardiovascular diagnostic studies to the best of his knowledge. As you know he is undergone extensive noncardiovascular evaluation and care for concerns of underlying gastric carcinoma at the [facility] system. At the present time he denies any resting or exertional chest discomfort suspicious for angina pectoris. He has had no evidence of CHF or pulmonary edema. There has been no ongoing palpitations. There is no near syncope or syncope. He has been in and out of the hospital recently for concerns of food poisoning. He had fevers and gastrointestinal distress. He states that during these recent evaluations he did have an ECG which was reported as unremarkable. Overall he states he does well, remains active, and has no significant concerns or complaints at this time from a cardiac standpoint. Intake Vital Signs07/20/17 Height 6 ft 1 in 07/20/17 Weight: 168 lb 2 oz 07/20/17 Body Mass Index (BMI) 22.1 07/20/17 Blood Pressure 110/78 Intake Visit Reasons: RESTABLISH CARE Allergies adhesive Allergy (Verified 07/16/17 16:53) Unknown cortisone [Cortisone] Allergy (Verified 07/16/17 16:53) Rash Penicillins Allergy (Verified 07/16/17 16:53) PT NOT SURE, HAPPENED WHEN HE WAS A CHILD simvastatin Allergy (Verified 07/16/17 16:53) Unknown Medications Multivitamins,Therapeutic [Multivitamin] 1 tab PO DAILY 04/22/14 [History Confirmed 07/20/17] Omeprazole [Prilosec] 40 mg PO DAILY 06/30/16 [History Confirmed 07/20/17] Hydrocodone/Acetaminophen [[place]ham 5-325 Tablet] 1 ea PO PRN PRN 05/26/17 [History Confirmed 07/20/17] Tamsulosin HCl [Flomax] 0.4 mg PO DAILY 05/26/17 [History Confirmed 07/20/17] allopurinol 100 mg tablet 100 mg PO QDAY 07/20/17 [History Confirmed 07/20/17] biotin 1 mg capsule 1 mg PO QDAY 07/20/17 [History Confirmed 07/20/17] cholecalciferol (vitamin D3) 1,000 unit capsule 1,000 unit PO ONCE 07/20/17 [History Confirmed 07/20/17] PFSH Medical History AAA (abdominal aortic aneurysm) (Acute) Aortic valve stenosis (Acute) H/O heart artery stent (Acute) Murmur, cardiac (Acute) Hyperlipidemia (Acute) Sleep apnea (Chronic) CAD (coronary artery disease) (Chronic) HTN (hypertension) (Chronic) BPH (benign prostatic hyperplasia) (Chronic) Gout (Chronic) Esophageal cancer (Acute) Abdominal aortic aneurysm (AAA) (Chronic) Gastric adenocarcinoma (Resolved) Surgical History H/O right inguinal hernia repair (Acute) History of cholecystectomy (Acute) History of gastrectomy (Resolved 07/2014) Family History Father Congestive heart failure Social History Smoking Status: Never smoker alcohol intake: never substance use type: does not use ROS Const Const: Positive fatigue (Patient reports recently had food poisoning and continues to recover. ); negative weakness, weight gain, weight loss, frequent falls or excessive sweating Eyes Eyes: Negative change in vision, blurry vision or transient loss of vision ENT ENT: Negative dizziness, Negative balance problems Cardio Chest Pain: No Palpitations: No Edema: None Muscle aches with walking: None Resp Respiratory: Negative SOB with activity or SOB at rest GI GI: Negative vomiting or vomiting blood/hematemesis : Negative hematuria Musc Musc: muscle aches/ myalgia (Patient reports muscle aches to bilat LE, DX gout); negative balance problems, muscle weakness or joint pain Skin Skin: Negative non-healing lesions or rash Neuro Neuro: Negative weakness, Negative blurry vision, Negative dizziness, lightheadedness (Patient reports occasional lightheadedness when standing up, gets up slowly), Negative frequent falls, Negative orthostatic symptoms Sahil Hematologic/Lymphatic: Negative easy bleeding Endo Endo: fatigue (Patient reports recently had food poisoning and continues to recover. ); negative excessive sweating Psych Psych: Negative anxiety or depression Allergy Allergy/Immunology: Negative hives, Negative rash Cardiology Exam Const Appearance: cooperative, healthy appearing, comfortable, no acute distress, well developed and well groomed Nutritional Appearance: thin Orientation: alert, awake, oriented x3 and oriented to person Head Head: normal to inspection Ears: hearing grossly normal bilaterally Nose: external nose normal Teeth and gingiva: fair dentition Eyes General: appearance normal, both eyes and all related structures Pupils: PERRL EOM: EOM intact bilaterally Neck Neck: normal visual inspection Carotids: normal carotid upstroke Chest Chest inspection: normal inspection of the chest and symmetric chest movement Auscultation: Bilateral: Clear to Auscultation Cardio Palpation: normal PMI Rate: regular rate Rhythm: regular rhythm Heart sounds: S1 normal and S2 normal Murmur: Grade 3/6, harsh, mid systolic, LLSB, LVOT and apex GI GI: normal to inspection, soft, no hepatosplenomegaly and bowel sounds present Neuro General: alert, awake and oriented x3 Skin Skin: no rashes or lesions noted Extremities Bruits: Positive: Right Femoral Bruit, Left Femoral Bruit, Abdominal Bruit, Right Radial Bruit, Left Radial Bruit Lower Extremity Edema: None: Bilateral Musculoskel Musculoskeletal: No joint tenderness, No joint redness, No joint warmth, No decreased ROM, No spinal deformity, No scoliosis, No lordosis Psych Psychological: normal affect Assessment AND Plan 1. CAD (coronary artery disease) I25.10 1 stent Plan At the present time he appears to be doing well. He will continue risk factor modification medical therapy as deemed appropriate. 2. H/O heart artery stent Z95.5 Plan He does have a history of a previous obtuse marginal branch PCI performed in 2002. He has not required any repeat noninvasive or invasive studies since his last outpatient visit of his coronary status. He will continue risk factor modification and medical management at this time. 3. Aortic valve stenosis I35.0 Plan He continues with a cardiac murmur. His last transthoracic echocardiogram was performed in 2013. He has not had one performed since that time to reassess his aortic valve stenosis. As it has been over 3 years since his last transthoracic echocardiogram one will be requested for him to reassess his aortic valve anatomy and physiology. Orders Orders: 4. Hyperlipemia E78.5 Plan He does have a history of hyperlipidemia. A copy of his most recent lipid labs would be appreciated for continuity of care purposes. 5. Hypertension I10 Plan His blood pressure appears to be under recently good control. He will continue medical management. 6. AAA (abdominal aortic aneurysm) I71.4 Plan He had an abdominal CT scan performed in May 2017. According to the report his abdominal aorta measured approximately 3.5 cm. He has not required additional evaluation or care. Plan Detail Follow Up 1 Year (PF) 09/26/17 1112 <Electronically signed by Mikhail Moran MD> Date Mikhail Moran MD Cosigner Signature: Date (if applicable) CC: Kaela Winkler III, MD PROGRESS Observed: 09/14/2017 Status: COMPLETED Source: FREER 6:17 PM [facility] REPOSITORY O ID: [id number] Author: Zechariah (Rn) JIGAR Parisi Service: (none) Author Type: Registered Nurse Type: Progress Notes Filed: 09/14/2017 6:24 PM Note Text: Note received from Dr. Mejia to schedule this patient with bariatric nutrition for possible intestinal bacterial overgrowth syndrome. Noticed that patient is already scheduled to see [facility]. Note sent to Dr. Winkler asking if he still needs bariatric nutrition? He replied that patient did not want to travel far and we can leave appt as is Sent Dr. Mejia an email indicating this. Zechariah Parisi RN HOSP Observed: 09/14/2017 Status: COMPLETED Source: FREER 12:00 AM [facility] REPOSITORY Patient Update (GENBMI) FILIPPO CHACON ([id number]) 1935 M Date Time Provider Department 09/14/17 ZECHARIAH PARISI (RN) GENBMI During your visit today, we recorded the following information about you: Zechariah Parisi RN, RN 09/14/2017 6:24 PM Signed Note received from Dr. Mejia to schedule this patient with bariatric nutrition for possible intestinal bacterial overgrowth syndrome. Noticed that patient is already scheduled to see [facility]. Note sent to Dr. Winkler asking if he still needs bariatric nutrition? He replied that patient did not want to travel far and we can leave appt as is Sent Dr. Mejia an email indicating this. Zechariah Parisi RN Allergies As of Date: 09/14/2017 Noted Allergy Reaction CORTISONE 10/18/2010 4 - Hives ADHESIVE TAPE (ROSINS) 04/21/2006 PENICILLINS 04/21/2006 2 - Rash ZOCOR (SIMVASTATIN) 04/05/2013 14 - Other: See Comments Comments: myalgia Date Reviewed: 09/01/2017 Reviewed by: Katie ([facility]) ЕКАТЕРИНА Haider - Fully Assessed Reason for Visit: Needs Bariatric Nutrition Appt [Other] Prescriptions as of 09/14/2017 Sig: HYDROCODONE 5 MG-ACETAMINOPHE* Take 1 tablet by mouth every * TAMSULOSIN 0.4 MG CAPSULE TAKE ONE CAPSULE BY MOUTH AT * ALLOPURINOL 100 MG TABLET Take 1 tablet by mouth once d* OMEPRAZOLE 40 MG CAPSULE,DANIELITO* 40mg by mouth daily CYANOCOBALAMIN (VIT B-12) 1,0* 1000 mcg by mouth weekly PSEUDOEPHEDRINE-GUAIFENESIN E* Take 1 tablet by mouth every * CHOLECALCIFEROL (VITAMIN D3) * Take 1 tablet by mouth once d* DAILY VITAMIN TABLET Take one(1) tablet daily BY M* Problem List As Of Date 09/14/2017 Noted Resolved BENIGN HYPERTENSION [I10] 11/24/2014 Hyperlipidemia LDL goal <100 [E78.5] Inflamed seborrheic keratosis [L82.0] INVALID FOR*11/07/2014 Viral warts, unspecified [B07.9] INVALID FOR*11/07/2014 SOLAR LENGINES [L81.9] INVALID FOR*11/07/2014 XEROSIS [L73.8] INVALID FOR*11/07/2014 Other chronic dermatitis due to solar radiation*INVALID FOR*11/07/2014 CA IN SITU COLON [D01.0] INVALID FOR* BENIGN NEOPLASM LG BOWEL [D12.6] INVALID FOR* OTHER PSORIASIS [L40.8] INVALID FOR* Lipoma of unspecified site [D17.9] INVALID FOR*11/07/2014 AAA (abdominal aortic aneurysm) (HCC) [I71.4] INVALID FOR* More... 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 Intractable vomiting with nausea [R11.2] INVALID FOR*11/24/2015 Macrocytic anemia with vitamin B12 deficiency [*INVALID FOR* Renal stones [N20.0] INVALID FOR* Chronic prescription opiate use [Z79.891] INVALID FOR* Campylobacter enteritis [A04.5] INVALID FOR* Rotator cuff syndrome of left shoulder [M75.102]INVALID FOR* Encounter Status:Closed by ZECHARIAH PARISI on 09/14/17 PROGRESS Observed: 09/11/2017 Status: COMPLETED Source: FREER 12:09 PM [facility] REPOSITORY HNO ID: [id number] Author: Palu Vance (Rn) Service: (none) Author Type: Registered Nurse Type: Progress Notes Filed: 09/15/2017 11:06 AM Note Text: PRIMARY CARE COORDINATION QUICK NOTE Provider Action/FYI Call to Pt noted per Dr. Winkler received message back from Dr. Mejia. He raised the possibility of a bacterial overgrowth syndrome in the intestine which may be causing the diarrhea. He recommended a consult to nutrition services. Filippo noted received a call from [facility] Nutrition services today to schedule he initially declined with [facility], but after discussion -said it may help, Miner Helper provided phone number to schedule. [phone] Patient identified by name and date . Pinky Miller RN September 11, 2017 12:10 PM PROGRESS Observed: 09/11/2017 Status: COMPLETED Source: FREER 11:53 AM [facility] REPOSITORY HNO ID: [id number] Author: Paul Vance (Rn) Service: (none) Author Type: Registered Nurse Type: Progress Notes Filed: 09/11/2017 12:23 PM Note Text: PRIMARY CARE COORDINATION QUICK NOTE Provider Action/FYI Call from [facility] scheduling, noting Pt declined services. Miner Helper will f/u with Pt. Patient identified by name and date . Pinky Miller RN September 11, 2017 11:56 AM CNPTOUTREACH Observed: 09/11/2017 Status: COMPLETED Source: FREER 12:00 AM [facility] REPOSITORY Patient Outreach (FAMPWS) FILIPPO CHACON ([id number]) 1935 M Date Time Provider Department 09/11/17 PAUL VANCE (RN) JESSICAPWS During your visit today, we recorded the following information about you: Pinky Miller RN 09/15/2017 11:06 AM Signed PRIMARY CARE COORDINATION QUICK NOTE Provider Action/FYI Call to Pt noted per Dr. Winkler received message back from Dr. Mejia. He raised the possibility of a bacterial overgrowth syndrome in the intestine which may be causing the diarrhea. He recommended a consult to nutrition services. Filippo noted received a call from [facility] Nutrition services today to schedule he initially declined with [facility], but after discussion -said it may help, Miner Helper provided phone number to schedule. [phone] Patient identified by name and date . Pinky Miller RN September 11, 2017 12:10 PM Allergies As of Date: 09/11/2017 Noted Allergy Reaction CORTISONE 10/18/2010 4 - Hives ADHESIVE TAPE (ROSINS) 04/21/2006 PENICILLINS 04/21/2006 2 - Rash ZOCOR (SIMVASTATIN) 04/05/2013 14 - Other: See Comments Comments: myalgia Date Reviewed: 09/01/2017 Reviewed by: aKtie ([facility]) ЕКАТЕРИНА Haider - Fully Assessed Reason for Visit: It Security Consulting Director Chronic Care [3612] Cmt: Dietitian Reason For Visit History Recorded Prescriptions as of 09/11/2017 Sig: HYDROCODONE 5 MG-ACETAMINOPHE* Take 1 tablet by mouth every * TAMSULOSIN 0.4 MG CAPSULE TAKE ONE CAPSULE BY MOUTH AT * ALLOPURINOL 100 MG TABLET Take 1 tablet by mouth once d* OMEPRAZOLE 40 MG CAPSULE,DANIELITO* 40mg by mouth daily CYANOCOBALAMIN (VIT B-12) 1,0* 1000 mcg by mouth weekly PSEUDOEPHEDRINE-GUAIFENESIN E* Take 1 tablet by mouth every * CHOLECALCIFEROL (VITAMIN D3) * Take 1 tablet by mouth once d* DAILY VITAMIN TABLET Take one(1) tablet daily BY M* Problem List As Of Date 09/11/2017 Noted Resolved BENIGN HYPERTENSION [I10] 11/24/2014 Hyperlipidemia LDL goal <100 [E78.5] Inflamed seborrheic keratosis [L82.0] INVALID FOR*11/07/2014 Viral warts, unspecified [B07.9] INVALID FOR*11/07/2014 SOLAR LENGINES [L81.9] INVALID FOR*11/07/2014 XEROSIS [L73.8] INVALID FOR*11/07/2014 Other chronic dermatitis due to solar radiation*INVALID FOR*11/07/2014 CA IN SITU COLON [D01.0] INVALID FOR* BENIGN NEOPLASM LG BOWEL [D12.6] INVALID FOR* OTHER PSORIASIS [L40.8] INVALID FOR* Lipoma of unspecified site [D17.9] INVALID FOR*11/07/2014 AAA (abdominal aortic aneurysm) (HCC) [I71.4] INVALID FOR* More... 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 Intractable vomiting with nausea [R11.2] INVALID FOR*11/24/2015 Macrocytic anemia with vitamin B12 deficiency [*INVALID FOR* Renal stones [N20.0] INVALID FOR* Chronic prescription opiate use [Z79.891] INVALID FOR* Campylobacter enteritis [A04.5] INVALID FOR* Rotator cuff syndrome of left shoulder [M75.102]INVALID FOR* Encounter Status:Closed by PINKY MILLER on 09/15/17 PROGRESS Observed: 09/08/2017 Status: COMPLETED Source: FREER 9:08 AM [facility] REPOSITORY HNO ID: [id number] Author: Paul Vance (Rn) Service: (none) Author Type: Registered Nurse Type: Progress Notes Filed: 09/11/2017 12:23 PM Note Text: PRIMARY CARE COORDINATION QUICK NOTE Provider Action/FYI 1. [facility] [phone] Left a vm for Evelyn Wynn for a nutrition services Consult, left Miner Helper's direct call back number. 2. Call from Evelyn Pettit Inpt Dietitian at [facility] -returned call to Miner Helper who left a vm noting she is the Inpt Dititian, only gave number for general scheduling, called the number provided and [facility] could not provide any direct lines for Miner Helper to spk to anyone outside of scheduling to verify if [facility] could meet Pt needs. 3. Call to [facility] scheduling spk with Wayne, left specific info with scheduling to send to Dititian to verify if they are able to assist with Pt needs, left Care Coordinators direct phone number. Return call from Wayne who provided phone number [phone] Nutrition Therapy Scheduling Dept 4. [facility] [phone] [facility] Nutrition Therapy Dept. Left a vm for Dept noting Dr. Winkler would like to consult Nutrition related to possibility of a bacterial overgrowth syndrome in the intestine which may be causing the diarrhea. Left vm with Miner Helper's phone number. Will await response Patient identified by name and date . Pinky Miller RN September 08, 2017 9:08 AM Pinky Miller RN September 08, 2017 3:03 PM PROGRESS Observed: 09/07/2017 Status: COMPLETED Source: FREER 5:30 PM [facility] REPOSITORY HNO ID: [id number] Author: Kaela Winkler III Service: (none) Author Type: Physician Type: Progress Notes Filed: 09/11/2017 12:23 PM Note Text: Notify patient that I did read a message back from Dr. Mejia. He raised the possibility of a bacterial overgrowth syndrome in the intestine which may be causing the diarrhea. He recommended a consult to nutrition services. I have placed an order for this. He seemed to think that nutrition services might be able to help this situation. Perhaps [facility] has a nutrition services that may be helpful. Pinky, please check with the hospital to see if their nutrition services could help patient with possible bacterial overgrowth syndrome following total gastrectomy. Still awaiting stool results Kaela Winkler III, MD, FAAFP PROGRESS Observed: 09/07/2017 Status: COMPLETED Source: FREER 3:27 PM [facility] REPOSITORY HNO ID: [id number] Author: Paul Vance (Rn) Service: (none) Author Type: Registered Nurse Type: Progress Notes Filed: 09/11/2017 12:23 PM Note Text: PRIMARY CARE COORDINATION QUICK NOTE Provider Action/FYI Call from Pt who noted he has not forgotten, has not been able to provide a stool specimenl, he noted has the kit, will bring it soon. Patient identified by name and date . Pinky Miller RN September 07, 2017 3:28 PM CNPTOUTREACH Observed: 09/07/2017 Status: COMPLETED Source: FREER 12:00 AM [facility] REPOSITORY Patient Outreach (FAMPWS) FILIPPO CHACON ([id number]) 1935 M Date Time Provider Department 09/07/17 PAUL VANCE (RN) FAMPWS During your visit today, we recorded the following information about you: Pinky Miller RN 09/11/2017 12:23 PM Signed PRIMARY CARE COORDINATION QUICK NOTE Provider Action/FYI Call from Pt who noted he has not forgotten, has not been able to provide a stool specimenl, he noted has the kit, will bring it soon. Patient identified by name and date . Pinky Miller RN September 07, 2017 3:28 PM Kaela Winkler III MD 09/11/2017 12:23 PM Signed Notify patient that I did read a message back from Dr. Mejia. He raised the possibility of a bacterial overgrowth syndrome in the intestine which may be causing the diarrhea. He recommended a consult to nutrition services. I have placed an order for this. He seemed to think that nutrition services might be able to help this situation. Perhaps [facility] has a nutrition services that may be helpful. Pinky, please check with the hospital to see if their nutrition services could help patient with possible bacterial overgrowth syndrome following total gastrectomy. Still awaiting stool results Kaela Winkler III, , FAAFP Pinky Miller RN 09/11/2017 12:23 PM Signed PRIMARY CARE COORDINATION QUICK NOTE Provider Action/FYI 1. [facility] [phone] Left a vm for Evelyn Wynn for a nutrition services Consult, left Miner Helper's direct call back number. 2. Call from Evelyn Pettit Inpt Dietitian at [facility] -returned call to Miner Helper who left a vm noting she is the Inpt Dititian, only gave number for general scheduling, called the number provided and [facility] could not provide any direct lines for Miner Helper to spk to anyone outside of scheduling to verify if [facility] could meet Pt needs. 3. Call to [facility] scheduling spk with Wayne, left specific info with scheduling to send to Dititian to verify if they are able to assist with Pt needs, left Care Coordinators direct phone number. Return call from Wayne who provided phone number [phone] Nutrition Therapy Scheduling Dept 4. [facility] [phone] [facility] Nutrition Therapy Dept. Left a vm for Dept noting Dr. Winkler would like to consult Nutrition related to possibility of a bacterial overgrowth syndrome in the intestine which may be causing the diarrhea. Left vm with Miner Helper's phone number. Will await response Patient identified by name and date . Pinky Miller RN September 08, 2017 9:08 AM Pinky Miller RN September 08, 2017 3:03 PM Pinky Miller RN 09/11/2017 12:23 PM Signed PRIMARY CARE COORDINATION QUICK NOTE Provider Action/FYI Call from [facility] scheduling, noting Pt declined services. Miner Helper will f/u with Pt. Patient identified by name and date . Pinky Miller RN September 11, 2017 11:56 AM Allergies As of Date: 09/07/2017 Noted Allergy Reaction CORTISONE 10/18/2010 4 - Hives ADHESIVE TAPE (ROSINS) 04/21/2006 PENICILLINS 04/21/2006 2 - Rash ZOCOR (SIMVASTATIN) 04/05/2013 14 - Other: See Comments Comments: myalgia Date Reviewed: 09/01/2017 Reviewed by: Katie ([facility]) ЕКАТЕРИНА Haider - Fully Assessed Reason for Visit: It Security Consulting Director - Patient Initiated [1157] Cmt: Stool specimen Primary Visit Diagnosis:Chronic diarrhea [K52.9] Order(s):CONSULT TO NUTRITION THERAPY [9020] Order #: [id number]: 1 Prescriptions as of 09/07/2017 Sig: HYDROCODONE 5 MG-ACETAMINOPHE* Take 1 tablet by mouth every * TAMSULOSIN 0.4 MG CAPSULE TAKE ONE CAPSULE BY MOUTH AT * ALLOPURINOL 100 MG TABLET Take 1 tablet by mouth once d* OMEPRAZOLE 40 MG CAPSULE,DANIELITO* 40mg by mouth daily CYANOCOBALAMIN (VIT B-12) 1,0* 1000 mcg by mouth weekly PSEUDOEPHEDRINE-GUAIFENESIN E* Take 1 tablet by mouth every * CHOLECALCIFEROL (VITAMIN D3) * Take 1 tablet by mouth once d* DAILY VITAMIN TABLET Take one(1) tablet daily BY M* Problem List As Of Date 09/07/2017 Noted Resolved BENIGN HYPERTENSION [I10] 11/24/2014 Hyperlipidemia LDL goal <100 [E78.5] Inflamed seborrheic keratosis [L82.0] INVALID FOR*11/07/2014 Viral warts, unspecified [B07.9] INVALID FOR*11/07/2014 SOLAR LENGINES [L81.9] INVALID FOR*11/07/2014 XEROSIS [L73.8] INVALID FOR*11/07/2014 Other chronic dermatitis due to solar radiation*INVALID FOR*11/07/2014 CA IN SITU COLON [D01.0] INVALID FOR* BENIGN NEOPLASM LG BOWEL [D12.6] INVALID FOR* OTHER PSORIASIS [L40.8] INVALID FOR* Lipoma of unspecified site [D17.9] INVALID FOR*11/07/2014 AAA (abdominal aortic aneurysm) (HCC) [I71.4] INVALID FOR* More... 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 Intractable vomiting with nausea [R11.2] INVALID FOR*11/24/2015 Macrocytic anemia with vitamin B12 deficiency [*INVALID FOR* Renal stones [N20.0] INVALID FOR* Chronic prescription opiate use [Z79.891] INVALID FOR* Campylobacter enteritis [A04.5] INVALID FOR* Rotator cuff syndrome of left shoulder [M75.102]INVALID FOR* Encounter Status:Closed by PINKY MILLER on 09/11/17 PROGRESS Observed: 09/01/2017 Status: COMPLETED Source: FREER 4:59 PM [facility] REPOSITORY HNO ID: [id number] Author: Kaela Winkler III Service: (none) Author Type: Physician Type: Progress Notes Filed: 09/01/2017 6:47 PM Note Text: SUBJECTIVE: This is a 81 year old male that is here today for recurrent /persistent watery, foul diarrhea for past 2 mo. which started after eating chicken in early Jun., Stool cultures + for campylobacter. Tx with several courses of zpack with temporary resolution. . Yesterday he had a formed stool in the AM, but then developed foul watery diarrhea. Today he had emesis x 3 in spite of norco and prilosec. No fever but some shoulder aching. No abd cramping/pain. No cough. I discussed the case with the pharmacist at [facility] with particular concern regarding possible decreased absorption of antibiotics since he has no stomach since his total gastrectomy for treatment of gastric cancer 3 years ago. Pharmacist did not know of any particular difficulty with that. 2. He does have a known abdominal aortic aneurysm which is not causing him any symptoms. He does get regular follow-up evaluation with ultrasound. 3. ASHD, status post stents?he denies any chest pain. 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[facility]) - ASHD (arteriosclerotic heart disease) 07/11/05 coronary artery stent - Coronary stent [address] [place], [place] - Essential hypertension, benign - Hyperuricemia 12/21/2011 - Kidney stone - Other and unspecified hyperlipidemia - Personal history of colonic polyps Colon polyps - Prostatitis, unspecified Prostatitis - 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 tamsulosin ER (FLOMAX) 0.4 mg cp24 TAKE ONE CAPSULE BY MOUTH AT BEDTIME allopurinol (ZYLOPRIM) 100 mg tablet Take 1 tablet by mouth once daily. For gout. Omeprazole (PRILOSEC) 40 mg capsule 40mg by mouth daily cyanocobalamin (VITAMIN B-12) 1,000 mcg tab 1000 mcg by mouth weekly pseudoephedrine-guaiFENesin (MUCINEX D) 60-600 mg per tablet Take 1 tablet by mouth every 12 hours as needed for Cold/Allergy Symptoms. Cholecalciferol, Vitamin D3, 2,000 unit cap Take 1 tablet by mouth once daily. multivitamins(DAILY VITAMIN TAB) Take one(1) tablet daily BY MOUTH. No current facility-administered medications on file prior to visit. FAMILY HISTORY Problem Relation Age of Onset - Colon Cancer Mother - Heart Father CHF,kidney failure - Heart Daughter Patent ductus arteriosus Social History Substance Use Topics - Smoking status: Former Smoker Years: 25.00 Types: Pipe Quit date: 08/14/2001 - Smokeless tobacco: Never Used - Alcohol use Yes Comment: 2 beers per month BP 114/83 Pulse 80 Resp 16 Wt 75.3 kg (166 lb) BMI 24.31 kg/m2 . OBJECTIVE: APPEARANCE Well appearing, alert, in no acute distress, well-hydrated, well nourished. HEART RRR with normal S1 and S2, no murmurs, no gallops, no JVD appreciated and 2/6 systolic murmur heard at the apex and left sternal border ABDOMEN bowel sounds normoactive, no bruits, soft, , non-distended, without organomegaly or palpable masses, mild tenderness to palpation in the. 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 May use Levaquin 750 mg once per day to treat Campylobacter, or oral vancomycin if needed to treat C. difficile Kaela Winkler III MD CNOV Observed: 09/01/2017 Status: COMPLETED Source: FREER 4:40 PM [facility] REPOSITORY Office Visit (FAMPWS) FILIPPO CHACON ([id number]) 1935 M Date Time Provider Department 09/01/17 4:40 PM KAELA WINKLER IIIPWS During your visit today, we recorded the following information about you: Pulse Respiration Blood pressure Weight 80/minute 16/minute 114/83 75.3 kg Kaela Winkler III MD 09/01/2017 6:47 PM Signed SUBJECTIVE: This is a 81 year old male that is here today for recurrent /persistent watery, foul diarrhea for past 2 mo. which started after eating chicken in early Jun., Stool cultures + for campylobacter. Tx with several courses of zpack with temporary resolution. . Yesterday he had a formed stool in the AM, but then developed foul watery diarrhea. Today he had emesis x 3 in spite of norco and prilosec. No fever but some shoulder aching. No abd cramping/pain. No cough. I discussed the case with the pharmacist at [facility] with particular concern regarding possible decreased absorption of antibiotics since he has no stomach since his total gastrectomy for treatment of gastric cancer 3 years ago. Pharmacist did not know of any particular difficulty with that. 2. He does have a known abdominal aortic aneurysm which is not causing him any symptoms. He does get regular follow-up evaluation with ultrasound. 3. ASHD, status post stents?he denies any chest pain. 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HCC) - ASHD (arteriosclerotic heart disease) 07/11/05 coronary artery stent - Coronary stent [address] [place], [place] - Essential hypertension, benign - Hyperuricemia 12/21/2011 - Kidney stone - Other and unspecified hyperlipidemia - Personal history of colonic polyps Colon polyps - Prostatitis, unspecified Prostatitis - 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 tamsulosin ER (FLOMAX) 0.4 mg cp24 TAKE ONE CAPSULE BY MOUTH AT BEDTIME allopurinol (ZYLOPRIM) 100 mg tablet Take 1 tablet by mouth once daily. For gout. Omeprazole (PRILOSEC) 40 mg capsule 40mg by mouth daily cyanocobalamin (VITAMIN B-12) 1,000 mcg tab 1000 mcg by mouth weekly pseudoephedrine-guaiFENesin (MUCINEX D) 60-600 mg per tablet Take 1 tablet by mouth every 12 hours as needed for Cold/Allergy Symptoms. Cholecalciferol, Vitamin D3, 2,000 unit cap Take 1 tablet by mouth once daily. multivitamins(DAILY VITAMIN TAB) Take one(1) tablet daily BY MOUTH. No current facility-administered medications on file prior to visit. FAMILY HISTORY Problem Relation Age of Onset - Colon Cancer Mother - Heart Father CHF,kidney failure - Heart Daughter Patent ductus arteriosus Social History Substance Use Topics - Smoking status: Former Smoker Years: 25.00 Types: Pipe Quit date: 08/14/2001 - Smokeless tobacco: Never Used - Alcohol use Yes Comment: 2 beers per month BP 114/83 Pulse 80 Resp 16 Wt 75.3 kg (166 lb) BMI 24.31 kg/m2 . OBJECTIVE: APPEARANCE Well appearing, alert, in no acute distress, well- hydrated, well nourished. HEART RRR with normal S1 and S2, no murmurs, no gallops, no JVD appreciated and 2/6 systolic murmur heard at the apex and left sternal border ABDOMEN bowel sounds normoactive, no bruits, soft, , non-distended, without organomegaly or palpable masses, mild tenderness to palpation in the. 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 May use Levaquin 750 mg once per day to treat Campylobacter, or oral vancomycin if needed to treat C. difficile Kaela Winkler III MD Referring Provider: SELF [200] Allergies As of Date: 09/01/2017 Noted Allergy Reaction CORTISONE 10/18/2010 4 - Hives ADHESIVE TAPE (ROSINS) 04/21/2006 PENICILLINS 04/21/2006 2 - Rash ZOCOR (SIMVASTATIN) 04/05/2013 14 - Other: See Comments Comments: myalgia Date Reviewed: 09/01/2017 Reviewed by: Katie ([facility]) ЕКАТЕРИНА Haider - Fully Assessed Reason for Visit: Diarrhea [35] Cmt: Food poisoning Primary Visit Diagnosis:Diarrhea of infectious origin [A09] Other Visit Diagnosis:Campylobacter enteritis [A04.5] Order(s):C. DIFFICILE PCR [SQCDPCR] Order #: [id number] ENTERIC BACTERIAL PANEL BY PCR [SQSTLPCR] Order #: [id number] FUTURE Prescriptions as of 09/01/2017 Sig: HYDROCODONE 5 MG-ACETAMINOPHE* Take 1 tablet by mouth every * TAMSULOSIN 0.4 MG CAPSULE TAKE ONE CAPSULE BY MOUTH AT * ALLOPURINOL 100 MG TABLET Take 1 tablet by mouth once d* OMEPRAZOLE 40 MG CAPSULE,DANIELITO* 40mg by mouth daily CYANOCOBALAMIN (VIT B-12) 1,0* 1000 mcg by mouth weekly PSEUDOEPHEDRINE-GUAIFENESIN E* Take 1 tablet by mouth every * CHOLECALCIFEROL (VITAMIN D3) * Take 1 tablet by mouth once d* DAILY VITAMIN TABLET Take one(1) tablet daily BY M* Problem List As Of Date 09/01/2017 Noted Resolved BENIGN HYPERTENSION [I10] 11/24/2014 Hyperlipidemia LDL goal <100 [E78.5] Inflamed seborrheic keratosis [L82.0] INVALID FOR*11/07/2014 Viral warts, unspecified [B07.9] INVALID FOR*11/07/2014 SOLAR LENGINES [L81.9] INVALID FOR*11/07/2014 XEROSIS [L73.8] INVALID FOR*11/07/2014 Other chronic dermatitis due to solar radiation*INVALID FOR*11/07/2014 CA IN SITU COLON [D01.0] INVALID FOR* BENIGN NEOPLASM LG BOWEL [D12.6] INVALID FOR* OTHER PSORIASIS [L40.8] INVALID FOR* Lipoma of unspecified site [D17.9] INVALID FOR*11/07/2014 AAA (abdominal aortic aneurysm) (HCC) [I71.4] INVALID FOR* More... 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 Intractable vomiting with nausea [R11.2] INVALID FOR*11/24/2015 Macrocytic anemia with vitamin B12 deficiency [*INVALID FOR* Renal stones [N20.0] INVALID FOR* Chronic prescription opiate use [Z79.891] INVALID FOR* Campylobacter enteritis [A04.5] INVALID FOR* Rotator cuff syndrome of left shoulder [M75.102]INVALID FOR* Encounter Status:Closed by KAELA WINKLER III, MD on 09/01/17 ALLERGIES ALLERGIES DATE TYPE / CODE NAME / CODE REACTION SEVERITY SOURCE 07/25/2018 Drug Penicillins/[id number] PT NOT SURE, Unknown [place] Allergy/416 0476(RXNORM) HAPPENED WHEN [place] [address]([facility] HE WAS A CHILD [facility] ED CT) Repository 07/25/2018 Drug adhesive/[id number] Unknown Unknown [place] Allergy/416 5(RXNORM) [place] [address]([facility] ED CT) Repository 07/25/2018 Drug simvastatin/[id number] Unknown Unknown [place] Allergy/416 3621(RXNORM) [place] [address]([facility] ED CT) Repository 07/25/2018 Drug cortisone/[id number] Rash Unknown [place] Allergy/416 45(RXNORM) [place] [address]([facility] ED CT) Repository 04/05/2013 DRUG SIMVASTATIN OTHER: SEE C [facility] INGREDI/[address] [place] [address]([facility] Repository ED CT) 10/18/2010 [facility] [place] [address] Repository ED CT) 04/21/2006 Chemical/42 ADHESIVE TAPE [facility] [id number](SNO (ROSINS) [place] MED [address]) Repository 04/21/2006 Drug PENICILLINS RASH [facility] Class/81827 [address] [place] 1003(SNOMED Repository CT) ENCOUNTERS ENCOUNTERS ADMIT/DISCHARGE ACCOUNT ADMITTING ENCOUNTER LOCATION SOURCE NUMBER CLASS 08/29/2018/08/30/19 [id number] Ambulatory [address] Repository 08/01/2018 [id number] Ambulatory B[place]Building:[place] Repository 08/01/2018 [id number] Ambulatory [facility] ing:[facility] Repository 07/25/2018/07/25/20 [id number] Ambulatory BMSBuilding:[place] [address] [place] Repository 07/23/2018 [id number] Ambulatory B[place]Building[place] Repository 07/19/2018/07/20/20 [id number] Ambulatory [address] Repository 06/12/2018 [id number] Ambulatory [facility] ing:RAD.FUTUR Repository E 05/21/2018/05/22/20 [id number] Ambulatory [address] Repository 05/01/2018/05/02/20 [id number] Ambulatory [address] Repository 04/26/2018/04/27/20 [id number] Ambulatory [address] Repository 03/31/2018/04/02/20 [id number] Ambulatory [address] Repository 01/16/2018/01/19/20 [id number] Ambulatory [address] Repository 01/11/2018/01/13/20 [id number] Ambulatory [address] Repository 09/01/2017/09/01/19 [id number] Ambulatory [address] Repository 07/20/2017/07/20/20 [id number] Ambulatory BMSBuilding:[place] [address] [place] Repository PAYERS PAYERS ENCOUNTER GUARANTOR PAYER SUBSCRIBER SOURCE 08/01/2018 FILIPPO [id number] Primary FILIPPO GARCIA: [place]ORY Insurance[place] [id number] [facility] [id number]: (330) Number: Repository [phone] () [id number] Date:[id number] [address]DH: 08/01/2018 Secondary NOT GIVENUNK [place] Insurance:SELF PAY [facility] Number: Effective Repository Date:2018-08-01 08/01/2018 FILIPPO R [id number] Primary FILIPPO R MEIERDOB: [place] Insurance:ANTHEM [id number] [place] [facility] [id number]: (330) Number: Repository [phone] () [id number] Date:3572-15-87KI [address] [address]BF: 08/01/2018 Secondary NOT GIVENUNK [place] Insurance:SELF PAY [facility] Number: Effective Repository Date:2018-07-25 07/25/2018 FILIPPO R [id number] Primary FILIPPO R MEIERDOB: [place] MEMORY Insurance:ANTHEM [id number] [place] [facility] [id number]: (330) Number: Repository [phone] () [id number] Date:3157-78-83PY [address] [place] [address]JJ: 07/25/2018 Secondary NOT GIVENUNK [place] Insurance:SELF PAY [facility] Number: Effective Repository Date:2018-07-25 07/23/2018 FILIPPO R [id number] Primary FILIPPO R MEIERDOB: [place] MEMORY Insurance:ANTHEM [id number] [place] [facility] [id number]: (330) Number: Repository [phone] () [id number] Date:7626-54-56NC [address] [place] [address]AX: 07/23/2018 Secondary NOT GIVENUNK [place] Insurance:SELF PAY [facility] Number: Effective Repository Date:2018-07-23 06/12/2018 FILIPPO CHACON552 Primary FILIPPO CHACONDOB: Ana Laura MEMORY Insurance:[facility] [id number] [place] [facility] [id number]: (330) Number: Repository [phone] () [id number] Date:7817-01-18SO [address] [place] [address]DL: 06/12/2018 Secondary NOT GIVENUNK [place] Laura Insurance:SELF PAY [facility] Number: Effective Repository Date:2018-06-12 07/20/2017 FILIPPO CHACON552 Primary FILIPPO CHACONDOB: [place] MEMORY Insurance:[facility] [id number] [place] [facility] [id number]: (330) Number: Repository [phone] () [id number] Date:[id number] [address]JN: 07/20/2017 Secondary NOT GIVENUNK [place] Insurance:SELF PAY [facility] Number: Effective Repository Date:2017-07-15
== END ==
PROVIDERS: Family Provider Family Medicine; PCP Family Medicine; Referring Provider Internal Medicine Cardiovascular Disease; Visit Provider Internal Medicine Cardiovascular Disease
DX: I71.4 Abdominal aortic aneurysm, without rupture (principal); I10 Essential (primary) hypertension
CPT/HCPCS: 93978

== ENCOUNTER → 2019-02-18 11:59 | Outpatient (CLI) | payer MEDICARE, SELFPAY ==
[2018-07-25 13:05] VITALS: BMI 22.4
--- NOTE | 2019-02-18 12:02 | RAD_ITS ---
STUDY: X-RAY - ABDOMEN/PELVIS REASON FOR EXAM: Male, 83 years old. Bilateral kidney stones. TECHNIQUE: Two AP supine views of the abdomen and pelvis. COMPARISON: Abdomen, June 12, 2018. FINDINGS: Normal visualized lung bases. There is an unremarkable bowel gas pattern. There is no demonstrated free abdominal air. The visualized liver, spleen and kidneys are grossly normal in size and morphology. Cholecystectomy clips are seen in the right upper quadrant There are multiple large stones overlying the right kidney. These measure 1.2 x 0.7 1.1 x 1.4 and 1.3 x 0.9 cm. Smaller calculi measuring 5 mm is also thought present. The left kidney is obscured by bowel gas no distinct renal calculi are noted. There are calcified phleboliths in the pelvis. There are diffuse degenerative changes of the visualized lumbar spine. RAD/Abdomen Single View IMPRESSION: Multiple right renal calculi. Left kidney is obscured by bowel gas. Electronically Signed: Emre Taylor DO at 17:00 EDT Tel [phone], Service support ,
== END ==
PROVIDERS: Family Provider Family Medicine; PCP Family Medicine; Referring Provider Urology; Visit Provider Urology
DX: N20.0 Calculus of kidney (principal)
CPT/HCPCS: 74018

== ENCOUNTER 2019-02-27 08:07 | Day surgery (SDC) | payer MEDICARE, SELFPAY ==
[2018-07-25 13:05] VITALS: BMI 22.4
[2019-02-25 11:15] VITALS: BP 110/75; PULSE 76; RESP 16; TEMP 36.3; O2SAT 99; BMI 22.6
--- NOTE | 2019-02-25 11:52 | SDCEKG_ITS ---
Test Reason : Blood Pressure : / mmHG Vent. Rate : 067 BPM Atrial Rate : 067 BPM P-R Int : 182 ms QRS Dur : 144 ms QT Int : 458 ms P-R-T Axes : 090 013 024 degrees QTc Int : 483 ms Sinus rhythm with Premature supraventricular complexes with occasional Premature ventricular complexe s Right bundle branch block Abnormal ECG Confirmed by KELI ROLLE, ZAKIA ([id number]), purchase request editor DILAN MCCONNELL ([id number]) on 03/04/2019 1:31:28 PM Referred By: Johnson Brenner Confirmed By:KATELYN DICKEY MD
[2019-02-27] VITALS (7 sets, daily range): BP systolic 104–135; BP diastolic 70–98; PULSE 58–70; RESP 16–18; TEMP 36.3–36.7; O2SAT 97–100; BMI 22.6
[2019-02-27] MEDS: Cefazolin 2 GM in 0.9% Normal Saline 100 ML IV (09:52)
--- NOTE | 2019-02-27 10:14 | DCINST_ITS ---
Discharge Diet: Light diet - advance as tolerated Discharge Activity: Return to Normal Activity Suture Line Care: Avoid Pulling/Pushing, Avoid Pinching/Bending Allergies/Adverse Reactions: Allergies adhesive Allergy (Verified 02/27/19 08:22) Unknown cortisone [Cortisone] Allergy (Verified 02/27/19 08:22) Rash Penicillins Allergy (Verified 02/27/19 08:22) PT NOT SURE, HAPPENED WHEN HE WAS A CHILD simvastatin Allergy (Verified 02/27/19 08:22) Unknown Medications to take at Discharge Multivitamins,Therapeutic [Multivitamin] 1 tab PO DAILY 04/22/14 Omeprazole [Prilosec] 40 mg PO DAILY 06/30/16 Tamsulosin HCl [Flomax] 0.4 mg PO DAILY 05/26/17 allopurinol 100 mg tablet 100 mg PO BID tab 07/25/18 cholecalciferol (vitamin D3) 1,000 unit capsule 1,000 unit PO DAILY cap 07/25/18 hydrocodone 5 mg-acetaminophen 325 mg tablet 0.5 tab PO PRN PRN tab 07/25/18 Ciprofloxacin [Cipro] 500 mg PO BID #6 tab 02/27/19 Hydrocodone/Acetaminophen [Hume 5-325 Tablet] 1 ea PO Q6H PRN PRN #20 tab 02/27/19 The following prescriptions were given: Ciprofloxacin [Cipro] 500 mg PO BID #6 tab Prescription Printed Hydrocodone/Acetaminophen [Hume 5-325 Tablet] 1 ea PO Q6H PRN PRN #20 tab PRN Reason: Pain Prescription Printed Primary Care Physician: Luis E Brunner III, MD [Primary Care Provider] - Test Results: Test results from this visit will be discussed in further detail at your follow- up appointment, if applicable. Please Follow Up With: Johnson Brenner MD When: in 2 weeks, please call to make an appointment.
--- NOTE | 2019-02-27 10:50 | PCM.OPRPT ---
Report of Operation Date of Procedure: 02/27/19 Pre-Operative Diagnosis: Right renal calculi x2 one-point centimeters in size and 8 mm in size. Post-Operative Diagnosis: The same Surgery/Procedure Performed:: Cystoscopy and right stent placement. And right extra corporeal shockwave lithotripsy Description of Surgical Findings:: 83-year-old male with 2 large stones in the right kidney we discussed options of management including observation and treatment with shockwave lithotripsy and understands this possibly may need more than one treatment the fairly large stones and he understands we will place a stent. 83-year-old male was taken back to the operating room after smooth induction of general anesthesia, he underwent anesthesia with Dr. Jamey Foster, he was placed in dorsolithotomy position with the legs in stirrups, the penis and testicles are prepped and draped in usual sterile fashion, timeout was performed, I then introduced the scope into the meatus went into the urethra all the way to the prostate up into the bladder the cystoscope, I then identified the right ureteral orifice the bladder looked somewhat distended the prostate was a little bit enlarged. No tumors or stones seen within the bladder. I then advanced a wire up into the right kidney was a wire coiled in the kidney over the wire to place a stent with a 6 Ukrainian by 26 cm stent was a stent was a good position and pulled the wire and the stent coiled in the kidney bladder good position. We then repositioned the patient flat on the lithotripter table we identified the first stone in the midpole fairly dense looking stone and we proceeded with shockwave lithotripsy after the stone was broken up successfully then we went to the second stone and finished up the second stone. We monitor the stone throat during treatment fluoroscopy and after giving a total of 3000 stones at a rate of 90/min and up to 7 kV and appeared to be a successful fragmentation still some fragments were visible with the see him in a week with an x-ray to see if he needs any more treatment. Patient anesthetic was reversed taken back to PACU good condition plan to see him back in a week with a KUB. Type of Anesthesia:: General Drains: yes drain stent right - Admit VTE Documentation VTE Present on Admission: No VTE Mechan Device Prophylaxis: SCD's
[2019-02-27] MEDS: HYDROcodone Bitartrate/Apap 5/325 Tablet PO (12:50)
== END 2019-02-27 13:34 | disposition home or self-care (01) ==
LOC: SDC 08:10 → AC 08:12
PROVIDERS: Family Provider Family Medicine; PCP Family Medicine; Referring Provider Urology; Visit Provider Urology
PROC: (CPT 50590; principal; 2019-02-27 10:00)
DX: N20.0 Calculus of kidney (principal); I10 Essential (primary) hypertension; E78.49 Other hyperlipidemia; K21.9 Gastro-esophageal reflux disease without esophagitis; Z79.899 Other long term (current) drug therapy; Z87.891 Personal history of nicotine dependence; Z87.442 Personal history of urinary calculi; Z85.028 Personal history of other malignant neoplasm of stomach; Z85.01 Personal history of malignant neoplasm of esophagus
CPT/HCPCS: 00873; 50590; 52332; 93005; J7120; C1769; J2405

== ENCOUNTER → 2019-03-07 09:13 | Outpatient (CLI) | payer MEDICARE, SELFPAY ==
[2019-02-27 08:26] VITALS: BMI 22.6
--- NOTE | 2019-03-07 09:15 | RAD_ITS ---
STUDY: X-RAY - ABDOMEN/PELVIS REASON FOR EXAM: Male, 83 years old. Right flank pain TECHNIQUE: Two AP supine views of the abdomen and pelvis. COMPARISON: 02/18/2019 FINDINGS: Since the previous study, patient has undergone lithotripsy as previously noted calcifications in the right kidney and become fragmented and fuzzy in appearance compared to the previous study. Additionally, right-sided JJ stent has been placed. It appears to be in satisfactory position. There are calcific fragments noted along the proximal third of the stent/ureter. Multiple calcific fragments remain in the mid and lower pole of the right kidney. There is a moderate amount of colonic fecal material. There is no demonstrated free abdominal air. The visualized liver, spleen and kidneys are grossly normal in size and morphology. Stable lucent centered phleboliths within the pelvis There are diffuse degenerative changes of the visualized lumbar spine. RAD/Abdomen Single View IMPRESSION: Patient has likely undergone lithotripsy since the previous study. A right-sided JJ stent is in satisfactory position and there are punctate calcific fragments noted along the proximal third of the stent/ureter. Multiple fragmented and fuzzy appearing calcifications now noted over the mid and lower pole the right kidney likely from the previous lithotripsy Degenerative bony changes Retained stool Electronically Signed: Johnson Krueger MD at 10:13 EDT , Service support ,
== END ==
PROVIDERS: Family Provider Family Medicine; PCP Family Medicine; Referring Provider Urology; Visit Provider Urology
DX: N20.0 Calculus of kidney (principal)
CPT/HCPCS: 74018

== ENCOUNTER → 2019-03-18 13:46 | Outpatient (CLI) | payer MEDICARE, SELFPAY ==
[2019-02-27 08:26] VITALS: BMI 22.6
[2019-03-18 14:11] LABS: Erythrocyte Sedimentation Rate 10 mm/hr (0-20)
== END ==
PROVIDERS: Family Provider Family Medicine; PCP Family Medicine; Referring Provider Nurse Practitioner Family; Visit Provider Nurse Practitioner Family
DX: R50.9 Fever, unspecified (principal)
CPT/HCPCS: 85652; 86140

== ENCOUNTER 2019-03-18 18:52 | Emergency (ER) | payer MEDICARE, SELFPAY ==
[2019-02-27 08:26] VITALS: BMI 22.6
[2019-03-18 18:53] VITALS: BP 101/69; PULSE 79; RESP 16; TEMP 36.7; BMI 22.8
[2019-03-18] MEDS: 0.9% Normal Saline 1,000 ML 1000 ML IV (20:51)
[2019-03-18 20:53] LABS: Bacteria 0 SEEN /hpf (None Seen); Mucous, Urine 0 SEEN /hpf (<or=2+); Red Blood Cells-Urine 0 SEEN /hpf (0-5); Squamous Epithelial Cells - UA 0 SEEN /hpf (0-5)
[2019-03-18 20:56] LABS: Absolute Lymphocyte Count 1.14 X10^3/uL (0.83-4.51); Absolute Neutrophil Count 4.2 X10^3/uL (2.0-7.7); Basophil# 0.02 X10^3/uL; Basophil% 0.3 % (0-1); Eosinophil# 0.08 X10^3/uL; Eosinophils% 1.3 % (0-5); Hematocrit 34.4 % (40-54); Hemoglobin 11.4 g/dL (13.0-16.5); Lymphocyte # 1.14 X10^3/ul (4.0); Lymphocyte % 19.2 % (19-41); Mean Corp Hgb Conc 33.1 g/dL (32-36); Mean Corpuscular Hgb 33.6 pg (27.0-32.0); Mean Corpuscular Volume 101.5 fL (80-94); Mean Platelet Vol. 10.5 fl (6.2-12.0); Monocyte# 0.47 X10^3/uL; Monocyte% 7.9 % (0-10); NRBC Flagged by Analyzer 0 % (0-5); Neutrophil % 70.6 % (47-70); Platelet Count 235 K/mm3 (150-450); RBC Distribution Width CV 13.8 % (11.6-14.6); RBC Distribution Width SD 51.8 fl (35.1-43.9); Red Blood Count 3.39 M/mm3 (4.6-6.2)
[2019-03-18 20:57] LABS: Color, Urine Yellow (Yellow); Glucose, Dipstick Normal (Normal); Ketone-Dipstick Negative (Negative); Leukocyte Esterase-Dipstick 100 /ul (Negative); Nitrite-Dipstick Negative (Negative); Occult Blood-Urine 10 /ul (Negative); Protein-Dipstick 15 mg/dl (Negative); Specific Gravity, Urine 1.015 (1.002-1.030); Urine Bilirubin Dipstick Negative (Negative); Urine Clarity Clear (Clear); Urine Urobilinogen Normal (Normal)
[2019-03-18 21:02] VITALS: RESP 17
[2019-03-18 21:10] LABS: White Blood Cells 10-25 SEEN /hpf (0-5)
[2019-03-18 21:11] VITALS: BP 125/83; PULSE 88; RESP 17; TEMP 38.5; O2SAT 99
[2019-03-18 21:12] LABS: Anion Gap 5 (5-15); BUN 29 mg/dL (7-18); BUN/Creat Ratio 21.6 RATIO (10-20); Calcium,Total 8.7 mg/dL (8.5-10.1); Chloride 107 mmol/L (98-107); Creatinine, Serum 1.34 mg/dL (0.70-1.30); EST Glomerular Filtration Rate 54 mL/min (>60); Est Glom Filt Rate - Afr Amer 66 mL/min (>60); Glucose 100 mg/dL (74-106); Potassium 4.8 mmol/L (3.5-5.1); Sodium Level 138 mmol/L (136-145)
[2019-03-18] MEDS: Acetaminophen 500 MG Tablet 1000 MG PO (21:24)
--- NOTE | 2019-03-18 21:46 | ED.VISSUMM ---
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 Patient had recent lithotripsy for kidney stones. Was on 3 days of Cipro and had a urinary stent which was removed. He has had intermittent fever for the last 24 hours. Denies any nausea, vomiting or diarrhea. Mild chills. No cough or shortness of breath. No abdominal pain. Physical Examination: Older male no acute distress vital signs are stable afebrile. His initial blood pressure is 101/69. Temperature is 98. HEENT exam unremarkable moist wheeze members. Neck nontender no lymphadenopathy. Lungs clear to auscultation bilaterally. Heart regular rhythm is had a 4/6 talk ejection murmur which she has had and been told about recently. Abdomen soft nontender normal bowel sounds no peritoneal signs. Extremities moves all 4. Calves nontender without edema. Back nontender. Skin normal. Posterior pharynx normal and TMs normal. Awake and alert. No focal motor deficits. Test Results: CBC shows white count of 6. Hemoglobin 11 his baseline is around 12. Chemistries are normal his creatinine is elevated at 1.34. Urinalysis shows 10-25 white cells however no nitrates or bacteria. A culture was sent. This will be treated as a early UTI. Blood cultures have also been sent x2. Emergency Department Course and Treatment: Patient may have a postprocedural UTI. Urine and blood cultures are being sent. Will be given a dose of Keflex 500 here p.o. Be placed on a 4 times a day for 1 week. And instructed to follow-up with his primary care physician. P.o. Tylenol. Treatment Plan: Keflex 500 4 times daily for 1 week. Follow-up with PCP. Return if feeling worse. Disposition: Discharge Impression: Acute fever Acute UTI that is post lithotripsy and ureteral stent This note was generated with [employer] dictation software. It may contain incorrect words, spelling, and punctuation that were not noted in review of the chart prior to signing ED Disposition - Plan for ED Patient: Referrals: Luis E Brunner III, MD [Primary Care Provider] -
[2019-03-18] MEDS: Cephalexin 250 MG Capsule 500 MG PO (21:47)
--- NOTE | 2019-03-18 21:50 | ED.DEP ---
ED Disposition - Plan for ED Patient: Disposition: Home or Assisted Living Instructions: Urinary Tract Infections in Men Prescriptions: Cephalexin [Keflex] 500 mg PO Q6 #30 cap Prescription Printed Referrals: Luis E Brunner III, MD [Primary Care Provider] - 3-5 Days Additional Instructions: Tylenol for fever. Keflex antibiotic 1 pill 4 times a day till gone. Call and follow-up with Dr. Luis E Brunner iii in 3 days. Return if feeling worse. Plenty of fluids and rest. Urine culture and blood cultures are pending.
[2019-03-18 21:58] VITALS: BP 108/63; PULSE 78; RESP 17; TEMP 37.7; O2SAT 97
== END 2019-03-18 21:59 | disposition home or self-care (01) ==
PROVIDERS: Emergency Provider Emergency Medicine; Family Provider Family Medicine; PCP Family Medicine
DX: N99.89 Other postprocedural complications and disorders of genitourinary system (principal); N39.0 Urinary tract infection, site not specified; I25.10 Atherosclerotic heart disease of native coronary artery without angina pectoris; Z79.899 Other long term (current) drug therapy
CPT/HCPCS: 36415; 80048; 81001; 85025; 85652; 86140; 87040; 87077; 87086; 87088; 87149; 87186; 96360; 99285; J7030; A4216

== ENCOUNTER 2019-03-19 12:40 | Inpatient (IN) | payer MEDICARE, SELFPAY ==
[2019-03-18 18:53] VITALS: BMI 22.8
[2019-03-19] VITALS (10 sets, daily range): BP systolic 90–121; BP diastolic 43–95; PULSE 70–99; RESP 14–71; TEMP 36.9–38; O2SAT 94–99; BMI 22.4; BMI 22.7
--- NOTE | 2019-03-19 14:33 | ED.VIS.GEN ---
History of Present Illness Chief Complaint: Abn Labs Informant: Patient, PCP Narrative: Patient was seen here last night after having fevers and chills after urinary manipulation with a stent and lithotripsy around 2 weeks ago, and a positive urinalysis. He was treated with Keflex, blood cultures were drawn by physician here in the ER and by PCP in the office, this morning blood cultures in the office returned positive. At that time, blood cultures here in this hospital were not yet returned, they were still pending as I looked at them myself after taking the call from the patient's PCP. At this time, the blood cultures here are both positive, consistent with what was found at the cultures in the [facility], gram-positive cocci in both chains and diplococci. His urine culture is showing enterococcus not otherwise specified at this time. At this time, the patient states he has felt well all day today, better than he did yesterday. He had hematuria after the stent was removed but that resolved. He was passing gravel and that is resolved. He still has some residual right-sided low back discomfort but that has not changed in the past several weeks and is mild and manageable. 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 (4) AAA (abdominal aortic aneurysm) Status: Chronic (5) Atherosclerotic heart disease of [place] coronary artery without angina pectoris Status: Chronic (6) BPH (benign prostatic hyperplasia) Status: Chronic (7) Essential hypertension Status: Chronic (8) Gout Status: Chronic (9) Hyperlipidemia Status: Chronic (10) Presence of stent in coronary artery Status: Chronic Comment: PTCA/stent of OM2 (1st and 3rd OM unable to be canalized.) 09/05/02 (11) Sleep apnea Status: Chronic (12) Kidney stones Status: Chronic Past Medical History - Allergies and Home Meds Allergies/Adverse Reactions: Allergies adhesive Allergy (Verified 03/19/19 16:03) burn-like needs paper tape cortisone [Cortisone] Allergy (Verified 03/19/19 12:41) Rash Penicillins Allergy (Verified 03/19/19 12:41) PT NOT SURE, HAPPENED WHEN HE WAS A CHILD simvastatin Adverse Reaction (Verified 03/19/19 16:03) joint/muscle aches Primary Care Physician: Luis E Brunner III, MD [Primary Care Provider] - Surgical History: angioplasty, - - stomache and esophagus surgery due to cancer cad with stent, surgery for kidney stones Lives: Spouse/ Significant Other Smoking Status: Never smoker Drugs: None - Family History Paternal Family History: Family History (Last Reviewed 07/25/18 @ 13:07 by Evelyn Villalpando) Father Congestive heart failure Family History: Reports: No pertinent history Maternal Family History: Family History (Last Reviewed 07/25/18 @ 13:07 by Evelyn Villalpando) Father Congestive heart failure Family History: Reports: No pertinent history Review of Systems General: Reports: Chills, Fever - see HPI. Denies: Sweats Eyes: Denies: Visual changes - bilaterally, Diplopia ENT: Denies: Rhinorrhea, Sore throat Cardiovascular: Denies: Chest pain, Palpitations Respiratory: Denies: Dyspnea, Cough, Dyspnea on exertion Gastrointestinal: Denies: Abdominal pain, Nausea, Vomiting, Diarrhea, Melena, Hematochezia Genitourinary: Denies: Dysuria, Hematuria, Frequency Musculoskeletal: Reports: Back pain. Denies: Extremity Pain Skin: Denies: Rash, Wounds Neurological: Denies: Headache, Weakness, Numbness Physical Exam Vital Signs/Narrative: Vital Signs Temp Pulse Resp BP Pulse Ox 03/19/19 12:41 98.7 F 85 16 90/43 L 97 Inital Vital Signs reviewed: Yes General: Well nourished, Well developed, No Acute Distress Head: Normocephalic, Atraumatic Eyes: Perrl, EOMI ENT: Moist mucous membranes, No rhinorrhea Neck: Supple, Nontender Cardiovascular: Regular rate, Regular rhythm, Murmur - 2/6, no thrill palpable; harsh cresc/decresc systolic Respiratory: No distress, CTA bilaterally, Chest nontender Abdomen: Soft, Nontender, Nondistended, Normal bowel sounds Back: Normal Inspection, CVA tenderness - mild right Extremities: Nontender, No edema. Negative for: Calf Tenderness Skin: Normal color, No rash, No Trauma Neurological: Alert, Oriented x3, Cranial nerves II-XII grossly intact, Normal Strength, Normal Sensation, Normal Gait Psychological: Normal affect, Normal Mood Diagnostic/Tx/Re-eval Laboratory Tests 03/19/19 03/19/19 03/19/19 Range/Units 14:39 14:27 14:27 WBC 6.2 (4.4-11.0) K/mm3 RBC 3.41 L (4.6-6.2) M/mm3 Hgb 11.3 L (13.0-16.5) g/dL Hct 34.6 L (40-54) % MCV 101.5 H (80-94) fL MCH 33.1 H (27.0-32.0) pg MCHC 32.7 (32-36) g/dL RDW Std Deviation 52.8 H (35.1-43.9) fl RDW Coeff of Rain 14.2 (11.6-14.6) % Plt Count 236 (150-450) K/mm3 MPV 10.1 (6.2-12.0) fl Immature Gran % (Auto) 0.800 (0.0-0.9) % Neut % (Auto) 68.4 (47-70) % Lymph % (Auto) 21.8 (19-41) % [place] % (Auto) 7.5 (0-10) % Eos % (Auto) 1.0 (0-5) % Baso % (Auto) 0.5 (0-1) % Absolute Neuts (auto) 4.2 (2.0-7.7) X10^3/uL Absolute Lymphs (auto) 1.34 (0.83-4.51) X10^3/uL Nucleated RBC % 0 (0-5) % Sodium 140 (136-145) mmol/L Potassium 4.2 (3.5-5.1) mmol/L Chloride 108 H (98-107) mmol/L Carbon Dioxide 26.0 (21.0-32.0) mmol/L Anion Gap 6 (5-15) BUN 26 H (7-18) mg/dL Creatinine 1.35 H (0.70-1.30) mg/dL Est GFR (MDRD) Af Amer 65 (>60) mL/min Est GFR (MDRD) Non-Af 54 L (>60) mL/min BUN/Creatinine Ratio 19.3 (10-20) RATIO Glucose 101 (74-106) mg/dL Lactic Acid 1.2 (0.4-2.0) mmol/L Calcium 8.9 (8.5-10.1) mg/dL - Medical Decision Making Patient is clinically stable, not clinically septic, and his lactate is within normal limits. He has no significant leukocytosis. I empirically started vancomycin, which after discussion with pharmacy, was adjusted to a 25 mg/kg load. Discussed with Dr. Brenner in addition to Dr. Rey for admission and IV antibiotics. It is unknown if he will need an echocardiogram or not, that does not need to occur emergently. ED Disposition - Plan for ED Patient: Disposition: Acute Care Hospital [facility] Diagnosis: Bacteremia due to Enterococcus, Urinary tract infection due to Enterococcus Referrals: Luis E Brunner III, MD [Primary Care Provider] -
[2019-03-19 14:55] LABS: Absolute Lymphocyte Count 1.34 X10^3/uL (0.83-4.51); Absolute Neutrophil Count 4.2 X10^3/uL (2.0-7.7); Basophil# 0.03 X10^3/uL; Basophil% 0.5 % (0-1); Eosinophil# 0.06 X10^3/uL; Hematocrit 34.6 % (40-54); Hemoglobin 11.3 g/dL (13.0-16.5); Lymphocyte # 1.34 X10^3/ul (4.0); Lymphocyte % 21.8 % (19-41); Mean Corp Hgb Conc 32.7 g/dL (32-36); Mean Corpuscular Hgb 33.1 pg (27.0-32.0); Mean Corpuscular Volume 101.5 fL (80-94); Mean Platelet Vol. 10.1 fl (6.2-12.0); Monocyte# 0.46 X10^3/uL; Monocyte% 7.5 % (0-10); NRBC Flagged by Analyzer 0 % (0-5); Neutrophil # 4.21 X10^3/uL (2.7-7.7); Neutrophil % 68.4 % (47-70); Platelet Count 236 K/mm3 (150-450); RBC Distribution Width CV 14.2 % (11.6-14.6); RBC Distribution Width SD 52.8 fl (35.1-43.9); Red Blood Count 3.41 M/mm3 (4.6-6.2); White Blood Count 6.2 K/mm3 (4.4-11.0)
[2019-03-19 14:56] LABS: Anion Gap 6 (5-15); BUN 26 mg/dL (7-18); BUN/Creat Ratio 19.3 RATIO (10-20); Calcium,Total 8.9 mg/dL (8.5-10.1); Chloride 108 mmol/L (98-107); Creatinine, Serum 1.35 mg/dL (0.70-1.30); EST Glomerular Filtration Rate 54 mL/min (>60); Est Glom Filt Rate - Afr Amer 65 mL/min (>60); Glucose 101 mg/dL (74-106); Potassium 4.2 mmol/L (3.5-5.1); Sodium Level 140 mmol/L (136-145)
[2019-03-19 15:09] LABS: Lactic Acid 1.2 mmol/L (0.4-2.0)
--- NOTE | 2019-03-19 16:02 | HP.PCM_ITS ---
History of Present Illness Date of Admission: 03/19/19 Chief Complaint: bacteremia The patient is a 83 year old M with a past medical history as listed. He was admitted to the ED on 03/19/2019 on account of bacteremia. Patient had lithotripsy with stent placement in his ureter about 2 weeks ago on account of k idney stones. He currently had the stent taken out about 5 days later. He subsequently started having fevers and chills went to his doctor and was found to have a positive UA. He was treated with Keflex. Blood cultures were drawn by his PCP. Results of that were pending but one night ago, patient was still having a fever so he came into the ED where another set of blood cultures were drawn. Patient was sent home from the ED as he was stable. This morning, of his blood cultures came back positive for gram-positive cocci in chains in the blood cocci. Urine culture showed enterococcus. Blood cultures done upon visit to the ED yesterday is still pending. Patient currently has no complaints and states fever has resolved. He denies chest chest pain, chills, diarrhea vomiting. Review of systems is otherwise negative. Labs and vitals reviewed. He has been admitted to be managed for bacteremia. [] Past Medical History Past Medical History (Chronic Problems): Chronic Problems (Last Reviewed 07/25/18 @ 13:07 by Evelyn Villalpando) Kidney stones (Chronic) Old myocardial infarction (Chronic) Presence of stent in coronary artery (Chronic ~09/05/02) PTCA/stent of OM2 (1st and 3rd OM unable to be canalized.) 09/05/02 Essential hypertension (Chronic) Atherosclerotic heart disease of [place] coronary artery without angina pectoris (Chronic) AAA (abdominal aortic aneurysm) (Chronic) Aortic valve stenosis (Chronic) Murmur, cardiac (Chronic) Hyperlipidemia (Chronic) Sleep apnea (Chronic) BPH (benign prostatic hyperplasia) (Chronic) Gout (Chronic) Esophageal cancer (Chronic) Medical History: Medical History (Last Reviewed 07/25/18 @ 13:07 by Evelyn Villalpando) Old myocardial infarction (Chronic) I25.2 Presence of stent in coronary artery (Chronic) Onset Date: ~09/05/02 Z95.5 PTCA/stent of OM2 (1st and 3rd OM unable to be canalized.) 09/05/02 Essential hypertension (Chronic) I10 Atherosclerotic heart disease of [place] coronary artery without angina pectoris (Chronic) I25.10 AAA (abdominal aortic aneurysm) (Chronic) I71.4 Aortic valve stenosis (Chronic) I35.0 Murmur, cardiac (Chronic) R01.1 Hyperlipidemia (Chronic) E78.5 Sleep apnea (Chronic) G47.30 BPH (benign prostatic hyperplasia) (Chronic) Gout (Chronic) M10.9 Esophageal cancer (Chronic) C15.9 Abdominal aortic aneurysm (AAA) I71.4 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 CAD (coronary artery disease) (Inactive) I25.10 1 stent HTN (hypertension) (Inactive) I10 Allergies adhesive Allergy (Verified 03/19/19 12:41) Unknown cortisone [Cortisone] Allergy (Verified 03/19/19 12:41) Rash Penicillins Allergy (Verified 03/19/19 12:41) PT NOT SURE, HAPPENED WHEN HE WAS A CHILD simvastatin Allergy (Verified 03/19/19 12:41) Unknown Home Medications: Ambulatory Orders Medication Instructions Recorded Multivitamins,Therapeutic 2 tab PO DAILY 04/22/14 [Multivitamin] Omeprazole [Prilosec] 40 mg PO DAILY 06/30/16 Tamsulosin HCl [Flomax] 0.4 mg PO DAILY 05/26/17 Hydrocodone/Acetaminophen [Zebulon 1 ea PO Q6H PRN PRN #20 tab 02/27/19 5-325 Tablet] Allopurinol 100 mg PO BID 03/19/19 Cephalexin [Keflex] 500 mg PO Q6H PRN PRN 03/19/19 Surgical History: Surgical History (Last Reviewed 07/25/18 @ 13:07 by Evelyn Villalpando) Presence of coronary angioplasty implant and graft Onset Date: ~09/05/02 Z95.5 PTCA/stent of OM2 (1st and 3rd OM unable to be canalized.) 09/05/02 H/O right inguinal hernia repair Z98.890, Z87.19 History of cholecystectomy Z90.49 History of cholecystectomy Z90.49 History of gastrectomy Onset Date: ~07/2014 Z90.3 Surgical History: angioplasty, - - stomach and esophagus surgery due to cancer cad with stent, surgery for kidney stones Psychiatric History: No pertinent psych hx Lives: Spouse/ Significant Other Smoking Status: Former smoker Alcohol: None Drugs: None - *Family History Paternal Family History: Family History (Last Reviewed 07/25/18 @ 13:07 by Evelyn Villalpando) Father Congestive heart failure History Items: No pertinent history Maternal Family History: Family History (Last Reviewed 07/25/18 @ 13:07 by Evelyn Villalpando) Father Congestive heart failure History Items: No pertinent history Review of Systems Constitutional: Denies: Chills, Fever, Malaise, Weakness, Weight Change Eyes: Denies: Blurred vision HEENT: Denies: Head Aches, Sinus Congestion, Sinus Drainage Cardiovascular: Denies: Chest Pain, Palpitations Respiratory: Denies: Cough, Shortness of breath at rest, Sputum production Gastrointestinal: Denies: Abdominal Pain, Nausea, Vomiting Genitourinary: Denies: Dysuria Musculoskeletal: Denies: Joint Pain, Joint Tenderness Skin: Denies: Rash, Wounds Neurological: Denies: Numbness, Tingling, Focal weakness Psychiatric: Denies: Anxiety, Depression, Homicidal Ideations, Suicidal Ideations Hematologic/ Lymphatic: Denies: Easy Bruising, Easy Bleeding VTE Information - Inpt Only VTE Present on Admission: No VTE Pharm Prophylaxis ordered?: Yes Patient Problems: Active and Suspected Problems (Last Reviewed 07/25/18 @ 13:07 by Evelyn Villalpando) Bacteremia due to Enterococcus (Acute) Urinary tract infection due to Enterococcus (Acute) - Physical Exam General: Alert, Oriented x3, Cooperative, No apparent distress HEENT: Atraumatic, PERRLA, EOMI, Normocephalic Oral: Dry Mucosa Neck: Supple, No JVD, Negative Carotid Bruits Lungs: Clear to auscultation, Normal air movement, No rhonchi, No wheeze, No rales Cardiovascular: Regular rate, Regular Rhythm, Normal S1, Normal S2, - - grade 3- 4 systolic murmur loudest in the aortic region and radiates to all other valvular areas Abdomen: Bowel Sounds Present, Soft, Non Tender, Non-Distended, No Hepato- splenomegaly Extremities: No clubbing, No cyanosis, No edema, Capillary Refill Less than 3 Seconds Skin: No rashes, No breakdown Musculoskeletal: No Tenderness to Palpation of Joints or Extremities Lymphatic: No Cervical, Supraclavicular, or Inguinal Adenopathy Neurological: Cranial nerves II-XII grossly intact, Neuro grossly intact, Motor Exam 5/5 strength throughout Psych/Mental Status: Normal Affect, Appropriate, Alert and oriented to time, place, person, mood and affect Vital Signs Temp Pulse Resp BP Pulse Ox 98.4 F 73 17 100/73 97 03/19/19 15:18 03/19/19 15:18 03/19/19 15:18 03/19/19 15:18 03/19/19 15:18 Oxygen Delivery Method Room Air Weight: 170 lb Body Mass Index (BMI) 22.4 Laboratory Tests Past 24 Hrs 03/19/19 03/19/19 03/19/19 14:27 14:27 14:39 WBC 6.2 RBC 3.41 L Hgb 11.3 L Hct 34.6 L MCV 101.5 H MCH 33.1 H MCHC 32.7 RDW Std Deviation 52.8 H RDW Coeff of Rain 14.2 Plt Count 236 MPV 10.1 Immature Gran % (Auto) 0.800 Neut % (Auto) 68.4 Lymph % (Auto) 21.8 [place] % (Auto) 7.5 Eos % (Auto) 1.0 Baso % (Auto) 0.5 Absolute Neuts (auto) 4.2 Absolute Lymphs (auto) 1.34 Nucleated RBC % 0 Sodium 140 Potassium 4.2 Chloride 108 H Carbon Dioxide 26.0 Anion Gap 6 BUN 26 H Creatinine 1.35 H Est GFR (MDRD) Af Amer 65 Est GFR (MDRD) Non-Af 54 L BUN/Creatinine Ratio 19.3 Glucose 101 Lactic Acid 1.2 Calcium 8.9 Assessment/Plan All Active Problems (Last Reviewed 07/25/18 @ 13:07 by Evelyn Villalpando) Bacteremia due to Enterococcus (Acute) Urinary tract infection due to Enterococcus (Acute) 83 y/o male admitted with a complaint of bacteremia per blood cultures 1. Bacteremia likely due to UTI and stent placement and removal * admit to PCU with telemetry * urine cultured Enterococcus * blood cultures (done in PCP's office) growing Enterococcus fecalis * start on IV vancomycin * repeat blood cultures from ED yesterday growing gram positive cocci * consult ID * no leucocytosis * 2D echo * 2. History of kidney stones s/p recent lithotripsy and stent placement and removal * stable * 3. History of aortic valve stenosis: stable. Will get 2D echo to assess valves in light of bacteremia 4. CAD s/p stent x 1: stable 5. Hypertension: stable. Diet controlled. 6. History of gastric adenocarcinoma s/p resection: 7. SLeep apnea: not on CPAP. DVT prophylaxis: heparin Code Visit Inpatient E&M: 09283 Init Hosp L3
--- NOTE | 2019-03-19 16:05 | NURSING ---
MED SURG BACTEREMIA KORAM
--- NOTE | 2019-03-19 16:51 | ECHOD_ITS ---
Reason For Study: Enterococcus Bacteremia, Assess for endocarditis Procedure This was a 2D Doppler, Color Flow transthoracic echocardiogram. Exam performed portable in patient room. Left Ventricle Mild concentric left ventricular hypertrophy. The estimated ejection fraction is 65 %. Stage 1 diastolic dysfunction. No regional wall motion abnormalities noted. Right Ventricle Normal size and thickness. Normal systolic function. Atria The left atrium is mildly enlarged. Normal right atrium. Normal atrial septum. Mitral Valve Mild diffuse mitral valve thickening. Mild mitral annular calcification extending into the posterior leaflet. Trivial mitral valve insufficiency. Tricuspid Valve Normal tricuspid valve. Mild (1+) tricuspid valve insufficiency. Right ventricular systolic pressure estimated to be 34 mmHg. Aortic Valve Trisinus/trileaflet aortic valve. Severe diffuse aortic valve thickening. Moderate focal aortic valve calcification. Severe restriction of the aortic valve. Possible small fibrinous mobile structure on aortic side of aortic valve. Cannot exclude bacterial vegetation. Critical aortic stenosis. Peak aortic valve gradient 98 mmHg. Mean aortic valve gradient 61 mmHg. Calculated aortic valve area (continuity equation) is 0.7 cm2. Pulmonic Valve Normal pulmonic valve. Great Vessels Calcified aortic root. Mild atherosclerosis of the aortic arch. Normal inferior vena cava. Inferior vena cava collapse with sniff. Pericardium/Pleural No pericardial effusion. MMode/2D Measurements & Calculations LVIDd: 5.1 cm IVSd: 1.3 cm LVOT diam: 2.0 cm LVIDs: 3.4 cm LVPWd: 0.84 cm LVOT area: 3.1 cm2 RVDd: 3.5 cm FS: 33.6 % Ao root diam: 2.6 cm LAV(MOD-bp): 60.1 ml LVAd ap4: 26.2 cm2 LAV(MOD-bp) Indexed: 29.8 ml/m2 EDV(MOD-sp4): 80.2 ml LAV(MOD-sp2): 51.5 ml EDV(sp4-el): 82.3 ml LAV(MOD-sp4): 67.0 ml LVAs ap4: 15.2 cm2 ESV(MOD-sp4): 33.5 ml ESV(sp4-el): 32.7 ml EF(MOD-sp4): 58.3 % EF(sp4-el): 60.3 % SV(MOD-sp4): 46.8 ml SV(sp4-el): 49.6 ml LA A4 area: 24.0 cm2 LA dimension(2D): 4.2 cm RA A4 area: 15.7 cm2 Doppler Measurements & Calculations MV E max jose g: 93.3 cm/sec Lat Peak E' Jose G: 5.8 cm/sec Med Peak E' Jose G: 3.4 cm/sec MV A max jose g: 119.7 cm/sec E/E' lat: 16.1 E/E' med: 27.3 MV E/A: 0.78 Ao V2 max: 493.8 cm/sec LV V1 max: 114.5 cm/sec SV(LVOT): 77.6 ml Ao max P.5 mmHg LV V1 max P.2 mmHg Ao V2 mean: 376.8 cm/sec LV V1 mean P.5 mmHg Ao mean P.3 mmHg LV V1 mean: 90.4 cm/sec Ao V2 VTI: 113.4 cm LV V1 VTI: 25.4 cm ANGELIA(I,D): 0.68 cm2 ANGELIA(V,D): 0.71 cm2 PA V2 max: 139.1 cm/sec TR max jose g: 270.1 cm/sec TR max P.2 mmHg Interpretation Summary Mild concentric left ventricular hypertrophy. The estimated ejection fraction is 65 %. Stage 1 diastolic dysfunction. The left atrium is mildly enlarged. Mild diffuse mitral valve thickening. Trivial mitral valve insufficiency. Mild (1+) tricuspid valve insufficiency. Right ventricular systolic pressure estimated to be 34 mmHg. Critical aortic stenosis. Peak aortic valve gradient 98 mmHg. Mean aortic valve gradient 61 mmHg. Calculated aortic valve area (continuity equation) is 0.7 cm2. Possible small fibrinous mobile structure on aortic side of aortic valve. Cannot exclude bacterial vegetation. Compared to echo report dated 08/17/2017, LV function has remained the same, but aortic stenosis has gone from mild to moderate to now critical. Anemia may excerbate AV gradient. Ordering Physician: Heather Rey Referring Physician: Luis E Brunner Performed By: Rama Whatley RDCS, RVT
--- NOTE | 2019-03-19 17:53 | PCM.RX.CS ---
Consult Pharmacy has been consulted to manage selected antiobiotic: Vancomycin Type of Consult: New start Suspected Infection: Bacteremia Prior Doses of Antibiotics Received/Current Regimen: 2000mg IV x1 loading dose in E.R. today starting at 15:08 Labs: Sodium 140 mmol/L (136-145) 03/19/19 14:27 Potassium 4.2 mmol/L (3.5-5.1) 03/19/19 14:27 Chloride 108 mmol/L (98-107) H 03/19/19 14:27 Carbon Dioxide 26.0 mmol/L (21.0-32.0) 03/19/19 14:27 6 (5-15) 03/19/19 14:27 BUN 26 mg/dL (7-18) H 03/19/19 14:27 1.35 mg/dL (0.70-1.30) H 03/19/19 14:27 Est GFR (MDRD) Af Amer 65 mL/min (>60) 03/19/19 14:27 Est GFR (MDRD) Non-Af 54 mL/min (>60) L 03/19/19 14:27 19.3 RATIO (10-20) 03/19/19 14:27 Glucose 101 mg/dL (74-106) 03/19/19 14:27 Weight used for dosin.2 kg Estimated Creatinine Clearance: 47 ml/min Goal Trough: 15-20 mcg/mL Pharmacy Plan for Drug Dosing: Continue with 500mg IV q12h. Obtain a trough before the 4th total dose. Pharmacy Service will continue to monitor and adjust dosing as required. Follow-Up Labs: Trough Vancomycin Labs to be done on [date and time ordered]: 03/21/19 02:30
[2019-03-19] MEDS: 0.9% Normal Saline 1,000 ML 75 ML IV (17:58)
[2019-03-19] MEDS: Allopurinol 100 MG Tablet PO (21:55)
[2019-03-20] VITALS (9 sets, daily range): BP systolic 97–108; BP diastolic 62–73; PULSE 64–89; RESP 18; TEMP 36.6–37.3; O2SAT 94–97
[2019-03-20] MEDS: Vancomycin IV 500 MG/100 ML BAG 100 MG IV ×2 (02:30→14:27)
[2019-03-20] MEDS: 0.9% Normal Saline 1,000 ML 75 ML IV (03:52)
[2019-03-20 06:08] LABS: Absolute Lymphocyte Count 1.63 X10^3/uL (0.83-4.51); Absolute Neutrophil Count 3.5 X10^3/uL (2.0-7.7); Basophil# 0.03 X10^3/uL; Basophil% 0.5 % (0-1); Eosinophils% 1.7 % (0-5); Hematocrit 28.4 % (40-54); Hemoglobin 9.5 g/dL (13.0-16.5); Lymphocyte # 1.63 X10^3/ul (4.0); Mean Corp Hgb Conc 33.5 g/dL (32-36); Mean Corpuscular Hgb 33.5 pg (27.0-32.0); Monocyte# 0.54 X10^3/uL; Monocyte% 9.3 % (0-10); NRBC Flagged by Analyzer 0 % (0-5); Neutrophil # 3.46 X10^3/uL (2.7-7.7); Neutrophil % 59.3 % (47-70); Platelet Count 212 K/mm3 (150-450); RBC Distribution Width SD 50.4 fl (35.1-43.9); Red Blood Count 2.84 M/mm3 (4.6-6.2); White Blood Count 5.8 K/mm3 (4.4-11.0)
[2019-03-20 06:10] LABS: Anion Gap 7 (5-15); BUN 21 mg/dL (7-18); BUN/Creat Ratio 20.8 RATIO (10-20); Chloride 111 mmol/L (98-107); Creatinine, Serum 1.01 mg/dL (0.70-1.30); EST Glomerular Filtration Rate 75 mL/min (>60); Est Glom Filt Rate - Afr Amer 91 mL/min (>60); Estimated Creatinine Clearance 63.48 ml/min; Glucose 100 mg/dL (74-106); Sodium Level 142 mmol/L (136-145)
[2019-03-20] MEDS: Multivitamins,Therapeutic Tablet 2 TABLET PO (08:41)
[2019-03-20] MEDS: Tamsulosin HCl 0.4 MG Capsule PO (08:41)
[2019-03-20] MEDS: Enoxaparin 40 MG/0.4 ML Syringe SC (09:35)
[2019-03-20] MEDS: Pantoprazole Sodium 40 MG Tablet PO (09:35)
[2019-03-20] MEDS: Allopurinol 100 MG Tablet PO ×2 (09:35→21:59)
--- NOTE | 2019-03-20 09:49 | PCM.PN.HOSP ---
Patient Problems: Active and Suspected Problems (Last Reviewed 07/25/18 @ 13:07 by Evelyn Villalpando) Bacteremia due to Enterococcus (Acute) Urinary tract infection due to Enterococcus (Acute) Subjective: Patient was seen and examined. Denied any new complaints. Denied fever or chills or shortness of breath. Rest of ROS is negative. Objective: Physical Exam General: Alert, Oriented x3, Cooperative, No apparent distress HEENT: Atraumatic, PERRLA, EOMI, Normocephalic Oral: Dry Mucosa Neck: Supple, No JVD, Negative Carotid Bruits Lungs: Clear to auscultation, Normal air movement, No rhonchi, No wheeze, No rales Cardiovascular: Regular rate, Regular Rhythm, Normal S1, Normal S2, - - grade 4/6 holosystolic murmur Abdomen: Bowel Sounds Present, Soft, Non Tender, Non-Distended, No Hepato-splenomegaly Extremities: No clubbing, No cyanosis, No edema, Capillary Refill Less than 3 Seconds Skin: No rashes, No breakdown Musculoskeletal: No Tenderness to Palpation of Joints or Extremities Lymphatic: No Cervical, Supraclavicular, or Inguinal Adenopathy Neurological: Cranial nerves II-XII grossly intact, Neuro grossly intact, Motor Exam 5/5 strength throughout Psych/Mental Status: Normal Affect, Appropriate, Alert and oriented to time, place, person, mood and affect Vitals/I&O's: Vital Signs Temp Pulse Resp BP Pulse Ox 97.9 F 73 18 99/68 96 03/20/19 08:37 03/20/19 08:37 03/20/19 08:37 03/20/19 08:37 03/20/19 08:37 Oxygen Delivery Method Room Air Weight: 78.245 kg Body Mass Index (BMI) 22.7 Intake and Output for Last 24 Hours 03/18/19 03/19/19 03/20/19 23:59 23:59 23:59 Intake Total 1937 Balance 1937 Laboratory Results 03/19/19 14:27: WBC 6.2, RBC 3.41 L, Hgb 11.3 L, Hct 34.6 L, MCV 101.5 H, MCH 33.1 H, MCHC 32.7, RDW Std Deviation 52.8 H, RDW Coeff of Rain 14.2, Plt Count 236, MPV 10.1, Immature Gran % (Auto) 0.800, Neut % (Auto) 68.4, Lymph % (Auto) 21.8, [place] % (Auto) 7.5, Eos % (Auto) 1.0, Baso % (Auto) 0.5, Absolute Neuts (auto) 4.2, Absolute Lymphs (auto) 1.34, Nucleated RBC % 0 03/19/19 14:27: Sodium 140, Potassium 4.2, Chloride 108 H, Carbon Dioxide 26.0, Anion Gap 6, BUN 26 H, Creatinine 1.35 H, Est GFR (MDRD) Af Amer 65, Est GFR (MDRD) Non-Af 54 L, BUN/Creatinine Ratio 19.3, Glucose 101, Calcium 8.9 03/19/19 14:39: Lactic Acid 1.2 03/20/19 05:48: WBC 5.8, RBC 2.84 L, Hgb 9.5 L, Hct 28.4 L, MCV 100.0 H, MCH 33.5 H, MCHC 33.5, RDW Std Deviation 50.4 H, RDW Coeff of Rain 14.0, Plt Count 212, MPV 10.0, Immature Gran % (Auto) 1.200 H, Neut % (Auto) 59.3, Lymph % (Auto) 28.0, [place] % (Auto) 9.3, Eos % (Auto) 1.7, Baso % (Auto) 0.5, Absolute Neuts (auto) 3.5, Absolute Lymphs (auto) 1.63, Nucleated RBC % 0 03/20/19 05:48: Sodium 142, Potassium 4.0, Chloride 111 H, Carbon Dioxide 24.0, Anion Gap 7, BUN 21 H, Creatinine 1.01, Estim Creat Clear Calc 63.48, Est GFR (MDRD) Af Amer 91, Est GFR (MDRD) Non-Af 75, BUN/Creatinine Ratio 20.8 H, Glucose 100, Calcium 8.0 L Current Medications Acetaminophen (Tylenol) 650 mg PO Q6H PRN PRN PRN Reason: Fever >100.4 Hydrocodone Bitart/Acetaminophen ([place] 5mg-325mg) 1 tablet PO Q6H PRN PRN PRN Reason: PAIN Allopurinol (Zyloprim) 100 mg PO BID RY Last Admin: 03/20/19 09:35 Dose: 100 mg Documented by: Dextrose (D50w Syringe) 0 gm IV X1 PRN; Protocol PRN Reason: Hypoglycemia Enoxaparin Sodium (Lovenox) 40 mg SC DAILY@1000 [facility] Last Admin: 03/20/19 09:35 Dose: 40 mg Documented by: Glucagon () 1 mg IM .X1 PRN PRN Reason: Hypoglycemia Vancomycin IV Pharmacy to Dose (1 ea/ Sodium Chloride) 500 mls @ 250 mls/hr IV X1 PRN; Protocol PRN Reason: Rx to Dose Sodium Chloride () 1,000 mls @ 75 mls/hr IV .[id number] [facility] Stop: 03/20/19 20:09 Last Admin: 03/20/19 03:52 Dose: 75 mls/hr Documented by: Vancomycin HCl () 500 mg in 100 mls @ 100 mls/hr IV Q12H [facility] Last Admin: 03/20/19 02:30 Dose: 100 mls/hr Documented by: Multivitamins (Multivitamin) 2 tablet PO DAILYCM [facility] Last Admin: 03/20/19 08:41 Dose: 2 tablet Documented by: Pantoprazole Sodium (Protonix) 40 mg PO DAILY [facility] Last Admin: 03/20/19 09:35 Dose: 40 mg Documented by: Tamsulosin HCl (Flomax) 0.4 mg PO DAILY@0830 [facility] Last Admin: 03/20/19 08:41 Dose: 0.4 mg Documented by: Medical Necessity - Tobacco Use Smoking Status: Former smoker Tobacco Use: Pipe Assessment/Plan All Active Problems (Last Reviewed 07/25/18 @ 13:07 by Evelyn Villalpando) Bacteremia due to Enterococcus (Acute) Urinary tract infection due to Enterococcus (Acute) 83-year-old with recent ureteral stent placement and removal who comes in with a positive blood culture results. 1. Enterococcus bacteremia, secondary to recent enterococcus UTI, recent urethral stent placement and removal Patient denies any fever or chills now, started on IV vancomycin, ID consulted. 2d-ECHO is pending. 2. Recent kidney stones status post lithotripsy, ureteral stent placement and removal 3. Hypertension, controlled, not on meds, will continue to monitor 4. DVT PPx- Lovenox SC Code Visit Inpatient E&M: 54459 [facility] Hosp L2
--- NOTE | 2019-03-20 10:10 | CASEMGMT ---
RN CM Face to Face with patient for initial transition planning/care coordination assessment. RN CM introduced self and role at [facility]. Patient lying in bed, alert and oriented. Patient willing to participate in assessment and is able to answer all questions appropriately. Care providers, pharmacy, and demographics verified. Patient wishes to discharge home, denies need for home health at this time. Patient states he has no further needs or concerns at this time. CM to follow for discharge planning needs that may arise. PCP: Kannan Specialists: Luisa acquisition editor; Jordin urologist Preferred Pharmacy: [facility] Insurance: [employer] [facility] Prescription Benefit: yes Living Will/HPOA: yes, Marimar Redd HPOA LNOK: Living Arrangements: Patient lives with in single story home. Patient is independent at home. Transportation: /family/self DME/HHC: Patient has raised toilet seat and cane. Patient denies previous HHC. Will monitor for need for HHC for IV ATB if necessary. Disposition Plan: Patient to discharge home with family support and follow-up plans in place. Adriane NIXON, RN, CM
--- NOTE | 2019-03-20 15:14 | CON.PCM_ITS ---
Problem List (1) Bacteremia due to Enterococcus Status: Acute Reason for Consult: (+) bcx Consulted by: Dr. Rey History of Present Illness: The patient is a 83 year old M with h/o gastric cancer, now s/p resection. Has recurrent kidney stones, had recent lithotripsy requiring stent placement. Stent was removed 5 days later, afterwards developed fever/chills, not feeling well. Denies current dysuria, no abd pain. Came to ED, cxs collected, given rx for keflex, called about (+) bcx, came to hospital. Now on vanc. Feeling fine. Full ROS performed and neg except as noted above. - Medical History Past Medical History (Chronic Problems): Chronic Problems (Last Reviewed 07/25/18 @ 13:07 by Evelyn Villalpando) Kidney stones (Chronic) Old myocardial infarction (Chronic) Presence of stent in coronary artery (Chronic ~09/05/02) PTCA/stent of OM2 (1st and 3rd OM unable to be canalized.) 09/05/02 Essential hypertension (Chronic) Atherosclerotic heart disease of [place] coronary artery without angina pectoris (Chronic) AAA (abdominal aortic aneurysm) (Chronic) Aortic valve stenosis (Chronic) Murmur, cardiac (Chronic) Hyperlipidemia (Chronic) Sleep apnea (Chronic) BPH (benign prostatic hyperplasia) (Chronic) Gout (Chronic) Esophageal cancer (Chronic) Allergies/Adverse Reactions: Allergies adhesive Allergy (Verified 03/19/19 16:03) burn-like needs paper tape cortisone [Cortisone] Allergy (Verified 03/19/19 12:41) Rash Penicillins Allergy (Verified 03/19/19 12:41) PT NOT SURE, HAPPENED WHEN HE WAS A CHILD simvastatin Adverse Reaction (Verified 03/19/19 16:03) joint/muscle aches Home Medications: Ambulatory Orders Medication Instructions Recorded Multivitamins,Therapeutic 2 tab PO DAILY 04/22/14 [Multivitamin] Omeprazole [Prilosec] 40 mg PO DAILY 06/30/16 Tamsulosin HCl [Flomax] 0.4 mg PO DAILY 05/26/17 Hydrocodone/Acetaminophen [[place] 1 ea PO Q6H PRN PRN #20 tab 02/27/19 5-325 Tablet] Allopurinol 100 mg PO BID 03/19/19 Cephalexin [Keflex] 500 mg PO Q6H PRN PRN 03/19/19 - Social History SMOKING STATUS:: Former smoker Vital Signs Temp Pulse Resp BP Pulse Ox 99.2 F H 75 18 100/68 97 03/20/19 14:18 03/20/19 14:18 03/20/19 14:18 03/20/19 14:18 03/20/19 14:18 Oxygen Delivery Method Room Air Weight: 78.25 kg Body Mass Index (BMI) 22.7 Laboratory Tests Past 24 Hrs 03/20/19 03/20/19 05:48 05:48 WBC 5.8 RBC 2.84 L Hgb 9.5 L Hct 28.4 L MCV 100.0 H MCH 33.5 H MCHC 33.5 RDW Std Deviation 50.4 H RDW Coeff of Rain 14.0 Plt Count 212 MPV 10.0 Immature Gran % (Auto) 1.200 H Neut % (Auto) 59.3 Lymph % (Auto) 28.0 [place] % (Auto) 9.3 Eos % (Auto) 1.7 Baso % (Auto) 0.5 Absolute Neuts (auto) 3.5 Absolute Lymphs (auto) 1.63 Nucleated RBC % 0 Sodium 142 Potassium 4.0 Chloride 111 H Carbon Dioxide 24.0 Anion Gap 7 BUN 21 H Creatinine 1.01 Estim Creat Clear Calc 63.48 Est GFR (MDRD) Af Amer 91 Est GFR (MDRD) Non-Af 75 BUN/Creatinine Ratio 20.8 H Glucose 100 Calcium 8.0 L - Other Studies Radiology: [] reviewed Other Studies: [] Route of nutrition/ use of supplements: [] Nutritional Intake: [] IV Site: [] Bauman Catheter: [] - Physical Exam General: Alert, Oriented x3, Cooperative, No apparent distress HEENT: Atraumatic, PERRLA, EOMI Neck: Supple, No Nodes Lungs: Clear to auscultation, Normal air movement Cardiovascular: Irregular Rate, Murmur Abdomen: Soft, Non Tender, Non-Distended Extremities: No edema Skin: No rashes, - - no splinter hemorrhages IV Site: Peripheral, without redness Musculoskeletal: No Tenderness to Palpation of Joints or Extremities Neurological: Cranial nerves II-XII grossly intact - Assessment/Plan Antibiotics: [] Assessment/Plan: [] Active and Suspected Problems (Last Reviewed 07/25/18 @ 13:07 by Evelyn Villalpando) Bacteremia due to Enterococcus (Acute) Urinary tract infection due to Enterococcus (Acute) Will check echo and renal u/s to look for other pockets of infection. Cont iv vanc. Will follow, thank you.
--- NOTE | 2019-03-20 15:17 | US_ITS ---
STUDY: RENAL ULTRASOUND - COMPLETE REASON FOR EXAM: Male, 83 years old. Nephrolithiasis. TECHNIQUE: Ultrasound evaluation of the kidneys was performed with real-time and static jalloh-scale imaging. COMPARISON: Abdominal radiograph March 07, 2019 and prior abdomen and pelvic CT exam of May 26, 2017 FINDINGS: RIGHT KIDNEY: Normal location of the right kidney, which is normal in size. The right kidney measures 12.5 x 6.2 x 4.4 cm. There is diffuse thinning of the renal cortex. The renal cortex measures 0.9 cm. Multiple renal cysts. The largest identified cyst is 5.5 x 4.7 x 4.9 cm. There is an unusual flattened cyst which conforms to the shape of the kidney measuring 4.6 x 4.2 x 2.6 cm. There are no right renal calculi. There is no right hydronephrosis. DISTAL RIGHT URETER: There is non-visualization of the distal right ureter. There is no demonstrated right ureteral jet. LEFT KIDNEY: Normal location of the left kidney, which is normal in size. The left kidney measures 12.8 x 5.0 x 5.4 cm. There is a normal cortex of the left kidney. The renal cortex measures 1.4 cm. Multiple left renal cysts measuring 2.5 x 2.5 x 2.3 cm and 1.2 x 1.1 x 1.1 cm. 2 echogenic foci measuring 4 mm and 6 mm. There is no left hydronephrosis. DISTAL LEFT URETER: There is non-visualization of the distal left ureter. There is no demonstrated left ureteral jet. BLADDER: The distended urinary bladder has a volume of 445 ml. There is a normal wall thickness of the distended urinary bladder. Elevation of the bladder base by prostate enlargement. There are no demonstrated bladder calculi. Incidental 4.8 x 3.4 x 3.3 cm adrenal mass. US/Kidney and Bladder IMPRESSION: Cortical thinning of the right kidney. Multiple cysts of the right kidney. Unusual complex fluid collection along the border of the upper pole of the kidney measuring 4.6 x 4.2 x 2.6 unlikely to be a renal cyst. Suspect a subcapsular fluid collection. Negative for hydronephrosis. Right renal stones are not identified. Normal size of the left kidney with multiple cysts as described above and 2 echogenic foci consistent with nonobstructing stones without hydronephrosis. Large volume urinary bladder with elevation of the bladder base by prostate enlargement. 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 Electronically Signed: Erika Mccain MD at 18:23 EDT , Service support ,
--- NOTE | 2019-03-20 16:27 | CHAPLAIN ---
Type of Pastoral Visit _x__ Initial Visit ___ Follow-up Visit ___ On-call Visit ___ General Patient Visit ___ Spiritual Assessment ___ Family Conference ___ Bereavement ___ Rapid Response ___ Code Blue ___ Other (describe below) Pastoral Care Referral From _x__ Patient ___ Family ___ Nurse ___ Physician ___ Dye Machine Operator ___ White [place] Buffer ___ Other (describe below) Sacrament/Intervention _x__ Active listening ___ Anointing ___ Samaritan ___ Bereavement ___ Communion ___ Aminah exploration ___ _x__ Life review _x__ Prayer ___ Reconciliation ___ Sacrament of Sick _x__ Supportive presence ___ Wedding ___ Other (describe below) Pastoral Comments
[2019-03-21] MEDS: Vancomycin IV 500 MG/100 ML BAG 100 MG IV (03:01)
[2019-03-21 03:03] VITALS: BP 103/71; PULSE 72; RESP 18; TEMP 36.9; O2SAT 95
[2019-03-21 03:35] LABS: Vancomycin, Trough Level 10.7 ug/mL (5.0-15.0)
--- NOTE | 2019-03-21 04:17 | PCM.RX.CS ---
Consult Pharmacy has been consulted to manage selected antiobiotic: Vancomycin Type of Consult: Follow-up Suspected Infection: Bacteremia Prior Doses of Antibiotics Received/Current Regimen: Medications Vancomycin HCl (Vancomycin) 1,000 mg in 200 mls @ 200 mls/hr IV Q12H RY Discontinued Medications Vancomycin HCl () 500 mg in 100 mls @ 100 mls/hr IV Q12H [facility] Last Admin: 03/21/19 03:01 Dose: 100 mls/hr Labs: Sodium 142 mmol/L (136-145) 03/20/19 05:48 Potassium 4.0 mmol/L (3.5-5.1) 03/20/19 05:48 Chloride 111 mmol/L (98-107) H 03/20/19 05:48 Carbon Dioxide 24.0 mmol/L (21.0-32.0) 03/20/19 05:48 7 (5-15) 03/20/19 05:48 BUN 21 mg/dL (7-18) H 03/20/19 05:48 1.01 mg/dL (0.70-1.30) 03/20/19 05:48 Est GFR (MDRD) Af Amer 91 mL/min (>60) 03/20/19 05:48 Est GFR (MDRD) Non-Af 75 mL/min (>60) 03/20/19 05:48 20.8 RATIO (10-20) H 03/20/19 05:48 Glucose 100 mg/dL (74-106) 03/20/19 05:48 Vancomycin Trough 10.7 ug/mL (5.0-15.0) 03/21/19 02:50 Weight used for dosin.2 kg Estimated Creatinine Clearance: 63.5 Goal Trough: 15-20 mcg/mL Pharmacy Plan for Drug Dosing: Low trough of 10.7 was received 03/21/19, so dosing was increased to 1000mg q12h. This is understandable with increase in renal function (CrCl from 47.5 to 63.5). Vancomycin trough will be re-drawn prior to 4th dose of new regimen. Pharmacy Service will continue to monitor and adjust dosing as required. Follow-Up Labs: Trough Vancomycin Labs to be done on [date and time ordered]: 03/23/19 @[id number]
--- NOTE | 2019-03-21 07:47 | PN_ITS ---
Patient Problems: Active and Suspected Problems (Last Reviewed 07/25/18 @ 13:07 by Evelyn Villalpando) Bacteremia due to Enterococcus (Acute) Urinary tract infection due to Enterococcus (Acute) Vitals/I&O's: Vital Signs Temp Pulse Resp BP Pulse Ox 98.4 F 72 18 103/71 95 03/21/19 03:03 03/21/19 03:03 03/21/19 03:03 03/21/19 03:03 03/21/19 03:03 Oxygen Delivery Method Room Air Weight: 78.25 kg Body Mass Index (BMI) 22.7 Intake and Output for Last 24 Hours 03/19/19 03/20/19 03/21/19 23:59 23:59 23:59 Intake Total 2586 / 2586 Balance 2586 / 2586 Laboratory Results 03/21/19 02:50: Vancomycin Trough 10.7 Current Medications Acetaminophen (Tylenol) 650 mg PO Q6H PRN PRN PRN Reason: Fever >100.4 Hydrocodone Bitart/Acetaminophen ([place] 5mg-325mg) 1 tablet PO Q6H PRN PRN PRN Reason: PAIN Allopurinol (Zyloprim) 100 mg PO BID [facility] Last Admin: 03/20/19 21:59 Dose: 100 mg Documented by: Enoxaparin Sodium (Lovenox) 40 mg SC DAILY@1000 [facility] Last Admin: 03/20/19 09:35 Dose: 40 mg Documented by: Vancomycin IV Pharmacy to Dose (1 ea/ Sodium Chloride) 500 mls @ 250 mls/hr IV X1 PRN; Protocol PRN Reason: Rx to Dose Vancomycin HCl (Vancomycin) 1,000 mg in 200 mls @ 200 mls/hr IV Q12H [facility] Multivitamins (Multivitamin) 2 tablet PO DAILYCM [facility] Last Admin: 03/20/19 08:41 Dose: 2 tablet Documented by: Pantoprazole Sodium (Protonix) 40 mg PO DAILY [facility] Last Admin: 03/20/19 09:35 Dose: 40 mg Documented by: Tamsulosin HCl (Flomax) 0.4 mg PO DAILY@0830 [facility] Last Admin: 03/20/19 08:41 Dose: 0.4 mg Documented by: Medical Necessity - Tobacco Use Smoking Status: Former smoker Tobacco Use: Pipe Assessment/Plan All Active Problems (Last Reviewed 07/25/18 @ 13:07 by Evelyn Villalpando) Bacteremia due to Enterococcus (Acute) Urinary tract infection due to Enterococcus (Acute)
[2019-03-21 08:03] VITALS: BP 130/78; PULSE 75; RESP 18; TEMP 36.8; O2SAT 95
[2019-03-21 08:05] VITALS: PULSE 68
[2019-03-21] MEDS: Tamsulosin HCl 0.4 MG Capsule PO (08:08)
[2019-03-21] MEDS: Multivitamins,Therapeutic Tablet 2 TABLET PO (08:08)
--- NOTE | 2019-03-21 09:49 | CT_ITS ---
STUDY: CT ABDOMEN AND PELVIS WITHOUT CONTRAST REASON FOR EXAM: Male, 83 years old. Bacteremia. History esophageal carcinoma with partial resection. RADIATION DOSAGE (If Supplied By Facility): CTDIvol = ( 14.11 ) mGy, DLP = ( 1174.97 ) mGycm TECHNIQUE: Transaxial images were obtained from the dome of the diaphragm to the symphysis pubis without oral contrast, and without intravenous contrast. Sagittal and coronal images were reconstructed. Individualized dose optimization techniques were used for this CT. COMPARISON: Comparison is made with prior study dated May 26, 2017. FINDINGS: Mild increased markings at the lung bases suggestive of atelectasis. Aortic valve replacement. Normal liver. There are surgical clips in the gallbladder fossa consistent with a prior cholecystectomy. Normal spleen. Normal pancreas. There is a 3.7 cm x 2.9 cm inhomogeneous solid mass in the right adrenal gland. This is unchanged. This may represent an hemartoma. There is evidence of a 4.6 cm x 1.8 cm low-attenuation subcapsular fluid collection overlying the lateral upper aspect of the right kidney. The patient has a history of recent lithotripsy. This may represent resolving hematoma. Stable appearance of the right renal cyst. Stable appearance of the left renal cysts. Surgical clips are seen in the epigastric region suggest lobar subtotal gastrectomy. Normal small intestine. Normal colon. The appendix is visualized and appears normal. There is diffuse atherosclerotic calcification of the abdominal aorta. There is evidence of a focal saccular infrarenal abdominal aortic aneurysm with a transverse dimension of 3.4 cm. Normal inferior vena cava. Normal retroperitoneum. Distended urinary bladder. There is enlargement of the prostate gland. This measures 6 cm x 5.3 cm. This causes indentation of the bladder base. Central calcifications are seen within. Normal abdominal wall. There are degenerative changes of the visualized lumbar spine. CT/Abdomen/Pelvis W IV Cont ONLY IMPRESSION: Small hypodense fluid collection in the subcapsular region of the superior aspect of the right kidney as described. This may represent a resolving hematoma following lithotripsy. Stable bilateral renal cysts. Stable right adrenal mass. Bibasilar atelectasis. Electronically Signed: John Villa, at 14:12 EDT , Service support ,
--- NOTE | 2019-03-21 10:01 | PCM.DC ---
- Discharge Diagnoses Current Active Problems: Current Active and Chronic Problems (Last Reviewed 07/25/18 @ 13:07 by Evelyn Villalpando) Kidney stones (Chronic) Bacteremia due to Enterococcus (Acute) Urinary tract infection due to Enterococcus (Acute) Reason(s) for Visit for Discharge Instructions: Bacteremia You will use the following diet at home:: Cardiac Your food should be the consistency of: Regular Your liquids should be the consistency of: Regular/Thin Discharge Activity: Return to Normal Activity Additional Instructions: Continue to keep hydrating yourself. Follow-up closely with Dr. Moran. Follow-up with Infectious disease within [address] [facility] wound center. Complete all your medications. Allergies/Adverse Reactions: Allergies adhesive Allergy (Verified 03/19/19 16:03) burn-like needs paper tape cortisone [Cortisone] Allergy (Verified 03/19/19 12:41) Rash Penicillins Allergy (Verified 03/19/19 12:41) PT NOT SURE, HAPPENED WHEN HE WAS A CHILD simvastatin Adverse Reaction (Verified 03/19/19 16:03) joint/muscle aches Medications to take at Discharge Multivitamins,Therapeutic [Multivitamin] 2 tab PO DAILY 04/22/14 Omeprazole [Prilosec] 40 mg PO DAILY 06/30/16 Tamsulosin HCl [Flomax] 0.4 mg PO DAILY 05/26/17 Hydrocodone/Acetaminophen [[place] 5-325 Tablet] 1 ea PO Q6H PRN PRN #20 tab 02/27/19 Allopurinol 100 mg PO BID 03/19/19 Acetaminophen [Tylenol Tablet] 650 mg PO Q6H PRN PRN tab 03/21/19 Linezolid 600 mg PO BID 40 Days #80 tab 03/21/19 The following prescriptions were given: Linezolid 600 mg PO BID 40 Days #80 tab Transmission Status: Received by [facility] Primary Care Physician: Lius E Brunner III, MD [Primary Care Provider] - Please follow up with your Primary Care Physician in: within 2 weeks Test Results: Test results from this visit will be discussed in further detail at your follow-up appointment, if applicable. Please Follow Up With: José Sol MD When: with 2 weeks Please Follow Up With: Mikhail Moran MD When: within 2 weeks Proposed Discharge Date: 03/21/19
--- NOTE | 2019-03-21 10:09 | PCM.DC.SUM ---
Discharge Date and Diagnosis - Problem List Patient Problems: Active and Suspected Problems (Last Reviewed 07/25/18 @ 13:07 by Evelyn Villalpando) Bacteremia due to Enterococcus (Acute) Urinary tract infection due to Enterococcus (Acute) Date of Admission: 03/19/19 Date of Discharge: 03/21/19 - Primary Discharge Diagnosis Active and Suspected Problems (Last Reviewed 07/25/18 @ 13:07 by Evelyn Villalpando) Bacteremia due to Enterococcus (Acute) Enterococcus endocarditis Recent Urinary tract infection due to Enterococcus (Acute) Anemia, likely hemodilution Acute kidney injury, pre-renal secondary to dehydration, resolved - Secondary Discharge Diagnosis Chronic Problems (Last Reviewed 07/25/18 @ 13:07 by Evelyn Villalpando) Kidney stones (Chronic) Old myocardial infarction (Chronic) Presence of stent in coronary artery (Chronic ~09/05/02) PTCA/stent of OM2 (1st and 3rd OM unable to be canalized.) 09/05/02 Essential hypertension (Chronic) Atherosclerotic heart disease of [place] coronary artery without angina pectoris (Chronic) AAA (abdominal aortic aneurysm) (Chronic) Aortic valve stenosis (Chronic) Murmur, cardiac (Chronic) Hyperlipidemia (Chronic) Sleep apnea (Chronic) BPH (benign prostatic hyperplasia) (Chronic) Gout (Chronic) Esophageal cancer (Chronic) Hospital Course and Treatment Imaging Results: 03/21/19 09:49 Abdomen/Pelvis W IV Cont ONLY [CT] Stat Clinical Impression(s) from Imaging Studies Renal Ultrasound 03/20/19 15:17 IMPRESSION: Cortical thinning of the right kidney. Multiple cysts of the right kidney. Unusual complex fluid collection along the border of the upper pole of the kidney measuring 4.6 x 4.2 x 2.6 unlikely to be a renal cyst. Suspect a subcapsular fluid collection. Negative for hydronephrosis. Right renal stones are not identified. Normal size of the left kidney with multiple cysts as described above and 2 echogenic foci consistent with nonobstructing stones without hydronephrosis. Large volume urinary bladder with elevation of the bladder base by prostate enlargement. 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 Electronically Signed: Erika Mccain MD at 18:23 EDT , Service support , Infectious disease Operations: None Procedures: None Summary of Care Provided: The patient is a 83 year old M with past medical history of esophageal CA status post partial esophagectomy/gastrectomy, who had lithotripsy with right ureteral stent placement on 02/27/19. His stent was subsequently removed 5 days later. Patient states he started having fever 1 day after. He completed 3 days of Cipro after the ureteral stent was removed. He was seen in the emergency department on 03/18/19 and urine and blood cultures were taken. He was discharged on Keflex. Patient was called back to the emergency department the next day when his urine cultures came back positive for enterococcus as well as his urine cultures. He was admitted to the medical floor, managed on IV vancomycin. He was seen by Infectious disease. Patient had a 2D echo that was suggestive of endocarditis. Patient was reluctant to undergo LIONEL. Ultrasound of the kidneys was suggestive of possible subcapsular abscess. He had CT of the abdomen and pelvis with contrast that was suggestive of possible hematoma status post lithotripsy. He also was reluctant to stay to have a PICC line. He was discharged on Linezolid. He will follow-up with ID, cardiology and primary care doctor within 2 weeks. Patient Problems: Active and Suspected Problems (Last Reviewed 07/25/18 @ 13:07 by Evelyn Villalpando) Bacteremia due to Enterococcus (Acute) Urinary tract infection due to Enterococcus (Acute) Subjective: Patient was seen and examined. He was anxious to go home. He denies fever or chills. He feels much improved. Objective: Physical Exam General: Alert, Oriented x3, Cooperative, No apparent distress HEENT: Atraumatic, PERRLA, EOMI, Normocephalic Oral: Dry Mucosa Neck: Supple, No JVD, Negative Carotid Bruits Lungs: Clear to auscultation, Normal air movement, No rhonchi, No wheeze, No rales Cardiovascular: Regular rate, Regular Rhythm, Normal S1, Normal S2, - - grade 4/6 holosystolic murmur Abdomen: Bowel Sounds Present, Soft, Non Tender, Non-Distended, No Hepato-splenomegaly Extremities: No clubbing, No cyanosis, No edema, Capillary Refill Less than 3 Seconds Skin: No rashes, No breakdown Musculoskeletal: No Tenderness to Palpation of Joints or Extremities Lymphatic: No Cervical, Supraclavicular, or Inguinal Adenopathy Neurological: Cranial nerves II-XII grossly intact, Neuro grossly intact, Motor Exam 5/5 strength throughout Psych/Mental Status: Normal Affect, Appropriate, Alert and oriented to time, place, person, mood and affect - Physical Exam Vital Signs Temp Pulse Resp BP Pulse Ox 98.3 F 68 18 130/78 H 95 03/21/19 08:03 03/21/19 08:05 03/21/19 08:03 03/21/19 08:03 03/21/19 08:03 Oxygen Delivery Method Room Air Weight: 78.25 kg Body Mass Index (BMI) 22.7 Intake and Output for Last 24 Hours 03/19/19 03/20/19 03/21/19 23:59 23:59 23:59 Intake Total 2586 / 2586 Balance 2586 / 2586 Laboratory Tests Past 24 Hrs 03/21/19 02:50 Vancomycin Trough 10.7 Discharge Diet: Low fat/ Low Cholesterol, 2000 mg Sodium Diet Discharge Activity: Return to Normal Activity Home Medications: Medications to take at Discharge Multivitamins,Therapeutic [Multivitamin] 2 tab PO DAILY 04/22/14 Omeprazole [Prilosec] 40 mg PO DAILY 06/30/16 Tamsulosin HCl [Flomax] 0.4 mg PO DAILY 05/26/17 Hydrocodone/Acetaminophen [[place] 5-325 Tablet] 1 ea PO Q6H PRN PRN #20 tab 02/27/19 Allopurinol 100 mg PO BID 03/19/19 Acetaminophen [Tylenol Tablet] 650 mg PO Q6H PRN PRN tab 03/21/19 Linezolid 600 mg PO BID 40 Days #80 tab 03/21/19 Following Prescrptions Were Given to Patient: Linezolid 600 mg PO BID 40 Days #80 tab Transmission Status: Received by [facility] Primary Care Physician: Luis E Brunner III, MD [Primary Care Provider] - Please follow up with your Primary Care Physician in: within 2 weeks Please Follow Up With: José Sol MD When: with 2 weeks Please Follow Up With: Mikhail Moran MD When: within 2 weeks Disposition: Home Minutes spent on discharge:: 40 Patient Condition:: Stable Medical Necessity - Tobacco Use Smoking Status: Former smoker Tobacco Use: Pipe Meaningful Use Info Meaningful Use Diagnoses (Choose all that apply): None applicable Code Visit Inpatient E&M: 73588 Disch Hosp
--- NOTE | 2019-03-21 10:21 | PCM.PN.ID ---
Patient Problems: Active and Suspected Problems (Last Reviewed 07/25/18 @ 13:07 by Evelyn Villalpando) Bacteremia due to Enterococcus (Acute) Urinary tract infection due to Enterococcus (Acute) Subjective: Feeling well, no complaints, no fever - Physical Exam General: Alert, Cooperative, No apparent distress Lungs: Clear to auscultation, Normal air movement Cardiovascular: Regular rate, Regular Rhythm, Murmur Abdomen: Soft, Non Tender, Non-Distended Skin: No rashes Vital Signs Temp Pulse Resp BP Pulse Ox 98.3 F 68 18 130/78 H 95 03/21/19 08:03 03/21/19 08:05 03/21/19 08:03 03/21/19 08:03 03/21/19 08:03 Oxygen Delivery Method Room Air Weight: 78.25 kg Body Mass Index (BMI) 22.7 Intake and Output for Last 24 Hours 03/19/19 03/20/19 03/21/19 23:59 23:59 23:59 Intake Total 2586 / 2586 Balance 2586 / 2586 Laboratory Tests Past 24 Hrs 03/21/19 02:50 Vancomycin Trough 10.7 Medical Necessity - Tobacco Use Smoking Status: Former smoker Tobacco Use: Pipe Route of nutrition/ use of supplements: [] Nutritional Intake: [] IV Site: [] Bauman Catheter: [] - Assessment/Plan Antibiotics: [] Assessment/Plan: [] Active and Suspected Problems (Last Reviewed 07/25/18 @ 13:07 by Evelyn Villalpando) Bacteremia due to Enterococcus (Acute) Urinary tract infection due to Enterococcus (Acute) On iv vanc, feeling well, no fever. TTE with ? vegetation. Renal us with possible loculated abscess. May need aspiration of collection. Consult urology, CT pending. He refuses LIONEL and wants to be able to go home today. I think this is acceptable but he does have risk if infection is not under control. Discussed options with him and he expresses understanding and wants to be able to leave. Recommend 6 week course with po linezolid, weekly cbc, close cardiology and urology followup. Wrote rx. Will follow, d/w Dr. 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 ID followup with me in 1-2 weeks at [facility].
[2019-03-21] MEDS: Allopurinol 100 MG Tablet PO (10:33)
[2019-03-21] MEDS: Enoxaparin 40 MG/0.4 ML Syringe SC (10:33)
[2019-03-21] MEDS: Pantoprazole Sodium 40 MG Tablet PO (10:33)
[2019-03-21] MEDS: 0.9% Normal Saline 1,000 ML 150 ML IV (10:36)
--- NOTE | 2019-03-21 11:03 | CASEMGMT ---
RJ DRAKE updated by [facility] that patient will require prior authorization for Linezolid. RJ DRAKE called patient's insurance and completed authorization over the phone. RJ DRAKE received fax confirmation of approved prior authorization. RJ DRAKE provided [facility] with copy of approved Prior Auth. RJ DRAKE updated patient and provided copy of Prior Auth. Copy filed in patient's chart. CM will continue to follow this patient plan for a safe discharge.
[2019-03-21] MEDS: Vancomycin IV 1,000 MG/200 ML BAG 200 MG IV (14:19)
[2019-03-21 14:24] VITALS: BP 97/72; PULSE 83; RESP 16; TEMP 36.9; O2SAT 96
--- NOTE | 2019-03-22 15:19 | CASEMGMT ---
RN CM Discharge Follow-up Phone Call: JESUS: Jed Strata: 3 Call Date: 03/22/19 Discharge Date: 03/21/19 Time of Call: 1515 Duration: 0 ? Admitting Diagnosis: Bacteremia Discharge follow-up call attempted by this RN CM. Voicemail message received and message requesting a return call left.
--- NOTE | 2019-03-25 10:25 | CASEMGMT ---
RJ DRAKE Discharge Follow-up Phone Call: JESUS: Jed Strata: 3 Call Date: 03/25/19 Discharge Date: 03/21/19 Time of Call: 1000 Duration: 20 minutes ? Admitting Diagnosis: Bacteremia Pt returned call after hours. Follow-up call to pt this AM. Pt states he feels he is progressing. Denies any elevated temperatures and states he feels the antibiotic is working. States the [facility] pharmacy did not have enough of the atb pills but were ordering more and would call him when they came in. The pt states he has enough until they come in. He also has the pharmacy's phone number that he can contact if he does not hear from them. Pt denies any transportation issues to obtain the additional doses. Pt aware of follow-up appointments with Jonathan Whatley NP and Dr. Sol. Was able to reiterate the plan of care including monitoring of his heart valve and continued presence of bacteria necessitating additional testing and treatment. Pt is active with his PCP Dr. Juan Carlos Brunner for any additional issues and concerns. This RJ DRAKE's phone number provided to pt and pt's for any additional questions or concerns they may have.
== END 2019-03-21 15:45 | disposition home or self-care (01) | DRG 698 ==
LOC: ED 16:06 → MS3 16:21
PROVIDERS: Admitting Provider Student in an Organized Health Care Education/Training Program; Emergency Provider Emergency Medicine; Family Provider Family Medicine; PCP Family Medicine; Referring Provider Student in an Organized Health Care Education/Training Program; Visit Provider Internal Medicine
DX: N99.89 Other postprocedural complications and disorders of genitourinary system (principal); I33.0 Acute and subacute infective endocarditis; N17.9 Acute kidney failure, unspecified; R78.81 Bacteremia; N39.0 Urinary tract infection, site not specified; Y83.8 Other surgical procedures as the cause of abnormal reaction of the patient, or of later complication, without mention of misadventure at the time of the procedure; I35.0 Nonrheumatic aortic (valve) stenosis; I25.10 Atherosclerotic heart disease of native coronary artery without angina pectoris; Z95.5 Presence of coronary angioplasty implant and graft; Z85.028 Personal history of other malignant neoplasm of stomach; Z90.3 Acquired absence of stomach [part of]; E86.0 Dehydration; D64.9 Anemia, unspecified; B95.2 Enterococcus as the cause of diseases classified elsewhere; N40.0 Benign prostatic hyperplasia without lower urinary tract symptoms; G47.30 Sleep apnea, unspecified; I10 Essential (primary) hypertension; E78.5 Hyperlipidemia, unspecified; M10.9 Gout, unspecified; Z87.891 Personal history of nicotine dependence; Z87.442 Personal history of urinary calculi
CPT/HCPCS: 36415; 74177; 76770; 80048; 80202; 81001; 83605; 85025; 85652; 86140; 87040; 87077; 87086; 87088; 87149; 87186; 93306; 96360; 97802; 99284; 99285; J7030; J7040; Q9967; A4216

== ENCOUNTER 2019-04-08 13:20 | Outpatient (RCR) | payer MEDICARE, SELFPAY ==
[2019-03-25 15:30] VITALS: BMI 22.3
[2019-04-08 14:54] LABS: Absolute Lymphocyte Count 1.62 X10^3/uL (0.83-4.51); Absolute Neutrophil Count 2.4 X10^3/uL (2.0-7.7); Basophil# 0.03 X10^3/uL; Basophil% 0.7 % (0-1); Eosinophil# 0.07 X10^3/uL; Eosinophils% 1.6 % (0-5); Hematocrit 33.4 % (40-54); Hemoglobin 10.7 g/dL (13.0-16.5); Lymphocyte # 1.62 X10^3/ul (4.0); Lymphocyte % 36.7 % (19-41); Mean Corpuscular Hgb 32.9 pg (27.0-32.0); Mean Corpuscular Volume 102.8 fL (80-94); Mean Platelet Vol. 10.3 fl (6.2-12.0); Monocyte# 0.32 X10^3/uL; Monocyte% 7.2 % (0-10); NRBC Flagged by Analyzer 0 % (0-5); Neutrophil # 2.36 X10^3/uL (2.7-7.7); Neutrophil % 53.3 % (47-70); POSITIVE MORPHOLOGY YES; Platelet Count 132 K/mm3 (150-450); RBC Distribution Width SD 56.4 fl (35.1-43.9); Red Blood Count 3.25 M/mm3 (4.6-6.2); White Blood Count 4.4 K/mm3 (4.4-11.0)
[2019-04-08 14:55] LABS: Differential Indicated SCAN CRITERIA MET
[2019-04-08 15:13] LABS: Atypical Lymphocyte RARE %; Hypochromasia 1+; Platelet Estimate ADEQUATE (ADEQ)
== END 2019-04-08 15:00 | disposition home or self-care (01) ==
LOC: LAB 13:20
PROVIDERS: Family Provider Family Medicine; PCP Family Medicine; Referring Provider Internal Medicine Infectious Disease; Visit Provider Internal Medicine Infectious Disease
DX: R78.81 Bacteremia (principal)
CPT/HCPCS: 36415; 85025

== ENCOUNTER 2019-04-22 15:27 | Outpatient (RCR) | payer MEDICARE, SELFPAY ==
[2019-03-25 15:30] VITALS: BMI 22.3
[2019-04-16 13:42] LABS: Absolute Lymphocyte Count 1.64 X10^3/uL (0.83-4.51); Absolute Neutrophil Count 3.1 X10^3/uL (2.0-7.7); Basophil# 0.02 X10^3/uL; Basophil% 0.4 % (0-1); Eosinophil# 0.06 X10^3/uL; Eosinophils% 1.2 % (0-5); Hematocrit 30.5 % (40-54); Hemoglobin 9.7 g/dL (13.0-16.5); Lymphocyte # 1.64 X10^3/ul (4.0); Lymphocyte % 31.5 % (19-41); Mean Corp Hgb Conc 31.8 g/dL (32-36); Mean Corpuscular Hgb 31.7 pg (27.0-32.0); Mean Corpuscular Volume 99.7 fL (80-94); Mean Platelet Vol. 9.7 fl (6.2-12.0); Monocyte# 0.37 X10^3/uL; Monocyte% 7.1 % (0-10); NRBC Flagged by Analyzer 0 % (0-5); Neutrophil # 3.09 X10^3/uL (2.7-7.7); Neutrophil % 59.4 % (47-70); Platelet Count 128 K/mm3 (150-450); RBC Distribution Width CV 15.1 % (11.6-14.6); RBC Distribution Width SD 55.4 fl (35.1-43.9); Red Blood Count 3.06 M/mm3 (4.6-6.2); White Blood Count 5.2 K/mm3 (4.4-11.0)
[2019-04-22 16:37] LABS: Absolute Lymphocyte Count 1.16 X10^3/uL (0.83-4.51); Absolute Neutrophil Count 3.9 X10^3/uL (2.0-7.7); Basophil# 0.02 X10^3/uL; Basophil% 0.4 % (0-1); Eosinophil# 0.05 X10^3/uL; Eosinophils% 0.9 % (0-5); Hematocrit 27.2 % (40-54); Hemoglobin 8.7 g/dL (13.0-16.5); Lymphocyte # 1.16 X10^3/ul (4.0); Lymphocyte % 21.4 % (19-41); Mean Corpuscular Hgb 31.5 pg (27.0-32.0); Mean Corpuscular Volume 98.6 fL (80-94); Mean Platelet Vol. 10.6 fl (6.2-12.0); Monocyte# 0.29 X10^3/uL; Monocyte% 5.3 % (0-10); NRBC Flagged by Analyzer 0 % (0-5); Neutrophil # 3.89 X10^3/uL (2.7-7.7); Neutrophil % 71.6 % (47-70); Platelet Count 131 K/mm3 (150-450); RBC Distribution Width CV 15.6 % (11.6-14.6); RBC Distribution Width SD 55.9 fl (35.1-43.9); Red Blood Count 2.76 M/mm3 (4.6-6.2); White Blood Count 5.4 K/mm3 (4.4-11.0)
== END 2019-04-22 16:00 | disposition home or self-care (01) ==
LOC: LAB 15:27
PROVIDERS: Family Provider Family Medicine; PCP Family Medicine; Referring Provider Internal Medicine Infectious Disease; Visit Provider Internal Medicine Infectious Disease
DX: R78.81 Bacteremia (principal)
CPT/HCPCS: 36415; 85025

== ENCOUNTER → 2019-05-21 16:11 | Outpatient (CLI) | payer MEDICARE, SELFPAY ==
[2019-05-15 14:32] VITALS: BMI 22.4
[2019-05-21 17:09] LABS: Hematocrit 31.1 % (40-54); Hemoglobin 9.8 g/dL (13.0-16.5); Mean Corp Hgb Conc 31.5 g/dL (32-36); Mean Corpuscular Hgb 33.6 pg (27.0-32.0); Mean Corpuscular Volume 106.5 fL (80-94); Mean Platelet Vol. 10.5 fl (6.2-12.0); POSITIVE MORPHOLOGY YES; Platelet Count 196 K/mm3 (150-450); RBC Distribution Width CV 21.8 % (11.6-14.6); RBC Distribution Width SD 85.2 fl (35.1-43.9); Red Blood Count 2.92 M/mm3 (4.6-6.2); White Blood Count 5.9 K/mm3 (4.4-11.0)
[2019-05-21 17:22] LABS: Scan Indicated on CBC? Y/N YES- FLAGS NOTED
[2019-05-21 17:36] LABS: Anion Gap 7 (5-15); BUN 26 mg/dL (7-18); BUN/Creat Ratio 22.2 RATIO (10-20); Chloride 108 mmol/L (98-107); Creatinine, Serum 1.17 mg/dL (0.70-1.30); EST Glomerular Filtration Rate 64 mL/min (>60); Est Glom Filt Rate - Afr Amer 77 mL/min (>60); Glucose 81 mg/dL (74-106); Potassium 3.9 mmol/L (3.5-5.1); Sodium Level 144 mmol/L (136-145)
[2019-05-21 18:32] LABS: Differential Comment SCANNED
== END ==
PROVIDERS: Family Provider Family Medicine; PCP Family Medicine; Referring Provider Internal Medicine Cardiovascular Disease; Visit Provider Internal Medicine Cardiovascular Disease
DX: I25.10 Atherosclerotic heart disease of native coronary artery without angina pectoris (principal); R60.0 Localized edema
CPT/HCPCS: 36415; 80048; 85027

== ENCOUNTER → 2019-06-04 13:51 | Outpatient (CLI) | payer MEDICARE, SELFPAY ==
[2019-05-15 14:32] VITALS: BMI 22.4
--- NOTE | 2019-06-04 13:53 | ECHOD_ITS ---
Reason For Study: MURMUR Procedure This was a 2D Doppler, Color Flow transthoracic echocardiogram. The exam was of adequate technical quality. Exam performed in department. Left Ventricle Normal LV size. Left ventricular systolic function is normal. The estimated ejection fraction is 65 %. There is evidence of diastolic dysfunction. No regional wall motion abnormalities noted. Right Ventricle Normal RV size. Normal systolic function. Atria The left atrium is moderately enlarged. Normal right atrium. No doppler evidence for ASD. Mitral Valve There is mild mitral annular calcification. Mild diffuse mitral valve thickening. The mitral valve chordae are thickened and/or calcified. The mitral papillary muscle appears thickened and/or calcified. Mild-Moderate (1-2+) mitral valve insufficiency. Tricuspid Valve Normal tricuspid valve. Mild tricuspid valve insufficiency. Right ventricular systolic pressure estimated to be 33 mmHg. Aortic Valve Trisinus/trileaflet aortic valve. Moderate diffuse aortic valve thickening. Moderate diffuse aortic valve calcification. Severe aortic stenosis. Trivial aortic valve insufficiency. Pulmonic Valve The pulmonic valve is not well visualized. Trivial pulmonic valve insufficiency. Great Vessels Normal sized aortic root. Calcified aortic root. Pericardium/Pleural Trivial pericardial effusion. There are no echocardiographic indications of cardiac tamponade. MMode/2D Measurements & Calculations LVIDd: 5.2 cm IVSd: 1.3 cm LVOT diam: 2.0 cm LVIDs: 3.4 cm LVPWd: 1.2 cm LVOT area: 3.1 cm2 RVDd: 3.1 cm FS: 36.2 % Ao root diam: 3.2 cm LAV(MOD-bp): 96.6 ml LA A4 area: 27.2 cm2 LAV(MOD-bp) Indexed: 49.8 ml/m2 LAV(MOD-sp2): 95.4 ml LAV(MOD-sp4): 100.7 ml LA dimension(2D): 4.5 cm RA A4 area: 15.9 cm2 Time Measurements MV dec time: 0.23 sec Doppler Measurements & Calculations MV E max jose g: 102.2 cm/sec Lat Peak E' Jose G: 5.9 cm/sec Med Peak E' Jose G: 5.1 cm/sec MV A max jose g: 140.6 cm/sec E/E' lat: 17.2 E/E' med: 20.0 MV E/A: 0.73 Ao V2 max: 507.2 cm/sec AI max jose g: 429.9 cm/sec LV V1 max: 124.5 cm/sec Ao max P.9 mmHg AI max P.0 mmHg LV V1 max P.2 mmHg Ao V2 mean: 397.7 cm/sec AI dec slope: 289.6 cm/sec2 LV V1 mean P.7 mmHg Ao mean P.5 mmHg AI P1/2t: 434.8 msec LV V1 mean: 92.8 cm/sec Ao V2 VTI: 113.0 cm LV V1 VTI: 26.8 cm ANGELIA(I,D): 0.74 cm2 ANGELIA(V,D): 0.77 cm2 SV(LVOT): 83.6 ml PA V2 max: 134.1 cm/sec TR max jose g: 248.9 cm/sec TR max P.8 mmHg Interpretation Summary Left ventricular systolic function is normal. The estimated ejection fraction is 65 %. The left atrium is moderately enlarged. There is mild mitral annular calcification. Mild diffuse mitral valve thickening. The mitral valve chordae are thickened and/or calcified. The mitral papillary muscle appears thickened and/or calcified. Mild-Moderate (1-2+) mitral valve insufficiency. Mild tricuspid valve insufficiency. Severe aortic stenosis. Trivial aortic valve insufficiency. Trivial pulmonic valve insufficiency. Calcified aortic root. Trivial pericardial effusion. There are no echocardiographic indications of cardiac tamponade. Right ventricular systolic pressure estimated to be 33 mmHg. There is evidence of diastolic dysfunction. Comment: Compared to the previous transthoracic echocardiogram of 03-20-19 and aortic valve associated mobile mass lesion is not appreciated at this time. Ordering Physician: Mikhail Moran Referring Physician: Mikhail Moran Performed By: Uzma Anne, ABEBA, RVT
== END ==
PROVIDERS: Family Provider Family Medicine; PCP Family Medicine; Referring Provider Internal Medicine Cardiovascular Disease; Visit Provider Internal Medicine Cardiovascular Disease
DX: I25.10 Atherosclerotic heart disease of native coronary artery without angina pectoris (principal)
CPT/HCPCS: 93306

== ENCOUNTER 2019-06-26 06:38 | Day surgery (SDC) | payer MEDICARE, SELFPAY ==
[2019-06-10 10:04] VITALS: BMI 22.3
--- NOTE | 2019-06-10 11:44 | HP_ITS ---
HPI HPI History of Present Illness Surgical H&P: Yes Details: SEEMA CHACON, is a 83 M who presents to the office today for outpatient cardiovascular follow-up of his history of coronary artery disease status post PTCA/stent to OM 2 on 09/05/2002, aortic stenosis, abdominal aortic aneurysm, hypertension, and hyperlipidemia. He does acknowledge a history of esophageal cancer status post partial esophagectomy/gastrectomy. He denies any ongoing symptoms of classic angina pectoris at this time. He has had no episodes of acute CHF with respect to pulmonary edema, or PND, etc. He has had no near syncope or syncope. He has noted an element of lower extremity ankle edema. He states this has improved with his diuretic therapy. There has been no near syncope or syncope. He is undergone evaluation care for his nephrolithiasis. Based upon his history it appeared this resulted in bacteremia for which she was treated with IV antibiotics and then oral antibiotics for a period of time. He has remained off all antibiotics since his last outpatient visit. He has had no recurrent fevers or infectious symptoms. He states he was not required to return to infectious disease for any additional follow-up/testing. During his evaluation he had a transthoracic echocardiogram performed. There was a question regarding his aortic valve and progression of aortic valve stenosis as well as any other associated aortic valve findings. His follow-up transthoracic echocardiogram was performed. The results are as noted below. 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 Accompanied by: Self Allergies adhesive Allergy (Verified 06/10/19 10:06) burn-like cortisone [Cortisone] Allergy (Verified 06/10/19 10:06) Rash Penicillins Allergy (Verified 06/10/19 10:06) PT NOT SURE, HAPPENED WHEN HE WAS A CHILD simvastatin Adverse Reaction (Verified 06/10/19 10:06) joint/muscle aches Medications Multivitamins,Therapeutic [Multivitamin] 2 tab PO DAILY 04/22/14 [History Confirmed 06/10/19] Omeprazole [Prilosec] 40 mg PO DAILY 06/30/16 [History Confirmed 06/10/19] Tamsulosin HCl [Flomax] 0.4 mg PO DAILY 05/26/17 [History Confirmed 06/10/19] Hydrocodone/Acetaminophen [[place] 5-325 Tablet] 1 ea PO Q6H PRN PRN #20 tab 02/27/19 [Rx Confirmed 06/10/19] Allopurinol 100 mg PO BID 03/19/19 [History Confirmed 06/10/19] Acetaminophen [Tylenol Tablet] 650 mg PO Q6H PRN PRN tab 03/21/19 [Rx Confirmed 06/10/19] sildenafil (antihypertensive) 20 mg tablet 20 mg PO DAILY PRN tab 05/14/19 [History Confirmed 06/10/19] furosemide 20 mg tablet 10 mg PO DAILY #30 tab 05/15/19 [Rx Confirmed 06/10/19] aspirin 81 mg tablet,delayed release 81 mg PO DAILY #30 tab 06/10/19 [Rx Confirmed 06/10/19] PFS Medical History Abdominal aortic aneurysm without rupture (Chronic) Non-rheumatic aortic stenosis (Chronic) Old myocardial infarction (Chronic) Presence of stent in coronary artery (Chronic ~09/05/02) Essential hypertension (Chronic) Atherosclerotic heart disease of [place] coronary artery without angina pectoris (Chronic) Murmur, cardiac (Chronic) Hyperlipidemia (Chronic) Sleep apnea (Chronic) Esophageal cancer (Chronic) Abdominal aortic aneurysm (AAA) (Chronic) BPH (benign prostatic hyperplasia) (Chronic) Gout (Chronic) Gastric adenocarcinoma (Resolved) CAD (coronary artery disease) (Inactive) HTN (hypertension) (Inactive) Surgical History Presence of coronary angioplasty implant and graft (Chronic ~09/05/02) H/O right inguinal hernia repair (Resolved) History of cholecystectomy (Resolved) History of cholecystectomy (Resolved) History of gastrectomy (Resolved ~07/2014) Family History Father Congestive heart failure Social History (Updated 06/10/19 @ 11:44 by Mikhail Moran MD) Smoking Status: Former smoker alcohol intake: never substance use type: does not use ROS Const Const: Negative for fatigue, weakness, frequent falls, excessive sweating, weight gain or weight loss Eyes Eyes: Negative for transient loss of vision, blurry vision or change in vision ENT ENT: Negative for dizziness or balance problems Cardio Chest Pain: No Palpitations: No Edema: None Muscle aches with walking: None Resp Respiratory: Negative for SOB with activity or SOB at rest GI GI: Negative vomiting or vomiting blood/hematemesis : Negative for hematuria Musc Musc: Negative for muscle aches/ myalgia, muscle weakness, joint pain or balance problems Skin Skin: Negative non-healing lesions or rash Neuro Neuro: Negative for dizziness, lightheadedness, orthostatic symptoms, frequent falls, weakness or blurry vision Sahil Hematologic/Lymphatic: Negative for easy bleeding Endo Endo: Negative for fatigue or excessive sweating Psych Psych: Negative for anxiety or depression Allergy Allergy/Immunology: Negative for hives, Negative for rash Cardiology Exam Const Appearance: cooperative, healthy appearing, comfortable, no acute distress, well developed and well groomed Nutritional Appearance: well nourished and thin Orientation: alert, awake and oriented x3 Head Head: normal to inspection, normocephalic and atraumatic Ears: hearing grossly normal bilaterally Nose: external nose normal Face and Sinus: face symmetric Mouth: oral mucosae normal Teeth and gingiva: poor dentition Eyes Eyelids: eyelids normal Conjunctivae: conjunctivae normal Pupils: PERRL EOM: EOM intact bilaterally Neck Neck: normal visual inspection, full ROM and no JVD Carotids: normal carotid upstroke Chest Chest inspection: normal inspection of the chest, symmetric chest movement and normal respiratory effort; negative cough Auscultation: Bilateral: Clear to Auscultation Cardio Palpation: normal PMI Rate: regular rate Rhythm: regular rhythm Heart sounds: S1 normal, S2 normal and murmur; negative rub or gallop Murmur: Grade 3/6, harsh, mid systolic, LLSB, apex, LVOT and sternal notch GI GI: normal to inspection, soft and bowel sounds present Neuro General: alert, awake, oriented x3 and moves all extremities Skin Skin: no rashes or lesions noted Extremities Pulses: Normal: Right Posterior Tibial Pulse, Left Posterior Tibial Pulse, Right Radial Pulse, Left Radial Pulse Lower Extremity Edema: Trace: Bilateral Psych Psychological: normal affect Assessment & Plan 1. Atherosclerosis of [place] coronary artery of [place] heart without angina pectoris I25.10 Plan At the present time he appears without any acute symptoms. He will continue medical management and follow-up. Orders Orders: 12 Lead EKG performed by BMS Today Left Heart Cath/COR/LV Percut Today Basic Metabolic Profile (BMP) Today Partial Thromboplast Time Today Prothrombin Time w/INR Today CBC W/Diff, Automated Today Chest PA and Lateral Today 2. Presence of stent in coronary artery Z95.5 PTCA/stent of OM2 (1st and 3rd OM unable to be canalized.) 09/05/02 Plan He does have a history of remote PCI. Again he appears without any acute symptoms. He will continue medical therapy and follow-up. Orders Orders: 12 Lead EKG performed by BMS Today Left Heart Cath/COR/LV Percut Today Basic Metabolic Profile (BMP) Today Partial Thromboplast Time Today Prothrombin Time w/INR Today CBC W/Diff, Automated Today Chest PA and Lateral Today 3. Non-rheumatic aortic stenosis I35.0 Plan He does have what appears to be significant aortic valve stenosis. This was discussed with him at length. At the present time he will proceed with further evaluation with diagnostic cardiac catheterization. This information, along with his noninvasive studies, then can be forwarded to the [facility] heart valve team to be evaluated for aortic valve repair/replacement potentially via a trans-catheter approach (TAVR) as opposed to a surgical approach. The procedure and risks were discussed with him. He was agreeable to this approach. Orders Orders: 12 Lead EKG performed by BMS Today Left Heart Cath/COR/LV Percut Today Basic Metabolic Profile (BMP) Today Partial Thromboplast Time Today Prothrombin Time w/INR Today CBC W/Diff, Automated Today Chest PA and Lateral Today 4. Abdominal aortic aneurysm without rupture I71.4 Plan He will continue to be followed by his other physicians for this. Orders Orders: 12 Lead EKG performed by BMS Today Left Heart Cath/COR/LV Percut Today Basic Metabolic Profile (BMP) Today Partial Thromboplast Time Today Prothrombin Time w/INR Today CBC W/Diff, Automated Today Chest PA and Lateral Today 5. Hyperlipidemia, unspecified hyperlipidemia type E78.5 Plan He will continue risk factor evaluation care as tolerated and deemed appropriate. Orders Orders: 12 Lead EKG performed by BMS Today Left Heart Cath/COR/LV Percut Today Basic Metabolic Profile (BMP) Today Partial Thromboplast Time Today Prothrombin Time w/INR Today CBC W/Diff, Automated Today Chest PA and Lateral Today 6. Essential hypertension I10 Plan His blood pressure appears to be well controlled at this time. Orders Orders: 12 Lead EKG performed by BMS Today Left Heart Cath/COR/LV Percut Today Basic Metabolic Profile (BMP) Today Partial Thromboplast Time Today Prothrombin Time w/INR Today CBC W/Diff, Automated Today Chest PA and Lateral Today Plan Detail Other Medications New: aspirin 81 mg PO DAILY 30 tabs 3RF Additional Comments Overall he does appear to have improvement with respect to his diuretic therapy with respect to his lower extremity edema. He has no ongoing symptoms of infectious disease at this time based upon his lack of fevers or other acute symptoms. He states he is required no follow-up with infectious disease. His follow-up transthoracic echocardiogram did not appreciate any obvious aortic valve related issues. At the moment he will continue his current therapy. He will add aspirin 81 mg a day as long as tolerated. He will be scheduled for a diagnostic cardiac catheterization as part of his evaluation to be evaluated at a tertiary care center, such as the [facility], for aortic valve intervention. Thank you for allowing me to participate in the care of your patient. Please don't hesitate to call if any issues arise. This note was generated using a voice recognition system and there may be incorrect words, spelling or punctuation that were not noted when reviewing the office note prior to saving. Follow Up 3 Months (08/16/2019 with P[facility]) Coding Level of Care Code Off vis,est,level 5 Diagnoses Atherosclerosis of [place] coronary artery of [place] heart without angina pectoris I25.10 ??[place] vs. transplanted heart: [place] heart Presence of stent in coronary artery Z95.5 Non-rheumatic aortic stenosis I35.0 Abdominal aortic aneurysm without rupture I71.4 Hyperlipidemia, unspecified hyperlipidemia type E78.5 ??Hyperlipidemia type: unspecified Essential hypertension I10 Coding Level of Care Code Off vis,est,level 5 Diagnoses Atherosclerosis of [place] coronary artery of [place] heart without angina pectoris I25.10 ??[place] vs. transplanted heart: [place] heart Presence of stent in coronary artery Z95.5 Non-rheumatic aortic stenosis I35.0 Abdominal aortic aneurysm without rupture I71.4 Hyperlipidemia, unspecified hyperlipidemia type E78.5 ??Hyperlipidemia type: unspecified Essential hypertension I10 Supplemental Info Supplemental Information Echocardiogram from 03/19/2019: Interpretation Summary Mild concentric left ventricular hypertrophy. The estimated ejection fraction is 65 %. Stage 1 diastolic dysfunction. The left atrium is mildly enlarged. Mild diffuse mitral valve thickening. Trivial mitral valve insufficiency. Mild (1+) tricuspid valve insufficiency. Right ventricular systolic pressure estimated to be 34 mmHg. Critical aortic stenosis. Peak aortic valve gradient 98 mmHg. Mean aortic valve gradient 61 mmHg. Calculated aortic valve area (continuity equation) is 0.7 cm2. Possible small fibrinous mobile structure on aortic side of aortic valve. Cannot exclude bacterial vegetation. Compared to echo report dated 08/17/2017, LV function has remained the same, but aortic stenosis has gone from mild to moderate to now critical. Anemia may exacerbate AV gradient. Transthoracic echocardiogram: 06-04-19 Interpretation Summary Left ventricular systolic function is normal. The estimated ejection fraction is 65 %. The left atrium is moderately enlarged. There is mild mitral annular calcification. Mild diffuse mitral valve thickening. The mitral valve chordae are thickened and/or calcified. The mitral papillary muscle appears thickened and/or calcified. Mild-Moderate (1-2+) mitral valve insufficiency. Mild tricuspid valve insufficiency. Severe aortic stenosis. Trivial aortic valve insufficiency. Trivial pulmonic valve insufficiency. Calcified aortic root. Trivial pericardial effusion. There are no echocardiographic indications of cardiac tamponade. Right ventricular systolic pressure estimated to be 33 mmHg. There is evidence of diastolic dysfunction. Comment: Compared to the previous transthoracic echocardiogram of 03-20-19 and aortic valve associated mobile mass lesion is not appreciated at this time. Abdominal Aorta US from 08/01/2018: Interpretation Summary 3.54 x 3.57 cm mid abdominal aortic aneurysm Mild diffuse disease bilateral common iliac arteries. Diagnostics Electrocardiogram 05/26/17 Echocardiogram 06/04/19 Chest X-Ray 07/16/17 06/10/19 1144 <Electronically signed by Mikhail peterson MD> Date _ Mikhail Moran MD I have re-examined the patient. There are no clinical changes since date of exam.
--- NOTE | 2019-06-14 16:20 | RAD_ITS ---
STUDY: X-RAY CHEST REASON FOR EXAM: Male, 83 years old. Shortness of breath. TECHNIQUE: Frontal and lateral views of the chest. COMPARISON: 07/16/2017. FINDINGS: The lungs are hyperexpanded. There are coarsened interstitial markings suggestive of mild chronic fibrosis. No gross focal infiltrates. No gross effusions. Normal size heart. Normal mediastinum and gui. Normal visualized pulmonary arteries. Normal visualized aortic arch and descending thoracic aorta. There are diffuse degenerative changes of the visualized thoracic spine. Normal visualized ribs, clavicles, and shoulders. There is no demonstrated abnormality of the visualized soft tissue structures of the upper abdomen. RAD/Chest PA and Lateral IMPRESSION: There are findings consistent with COPD. There is no evidence of acute chest disease. Electronically Signed: Ken Olivares MD at 19:59 EST , Service support ,
[2019-06-14 16:49] LABS: Absolute Lymphocyte Count 1.47 X10^3/uL (0.83-4.51); Absolute Neutrophil Count 2.4 X10^3/uL (2.0-7.7); Basophil# 0.05 X10^3/uL; Basophil% 1.1 % (0-1); Eosinophil# 0.23 X10^3/uL; Eosinophils% 5.1 % (0-5); Hemoglobin 10.8 g/dL (13.0-16.5); Lymphocyte # 1.47 X10^3/ul (4.0); Lymphocyte % 32.3 % (19-41); Mean Corp Hgb Conc 31.8 g/dL (32-36); Mean Corpuscular Hgb 33.8 pg (27.0-32.0); Mean Corpuscular Volume 106.3 fL (80-94); Mean Platelet Vol. 10.3 fl (6.2-12.0); Monocyte# 0.43 X10^3/uL; Monocyte% 9.5 % (0-10); NRBC Flagged by Analyzer 0 % (0-5); Neutrophil # 2.36 X10^3/uL (2.7-7.7); Neutrophil % 51.8 % (47-70); Platelet Count 200 K/mm3 (150-450); RBC Distribution Width CV 15.8 % (11.6-14.6); White Blood Count 4.6 K/mm3 (4.4-11.0)
[2019-06-14 16:52] LABS: International Normalized Ratio 1.1; Prothrombin Time (Protime)PT. 13.7 SECONDS (11.7-14.9)
[2019-06-14 17:07] LABS: Anion Gap 8 (5-15); BUN 27 mg/dL (7-18); BUN/Creat Ratio 23.3 RATIO (10-20); Calcium,Total 8.7 mg/dL (8.5-10.1); Chloride 107 mmol/L (98-107); Creatinine, Serum 1.16 mg/dL (0.70-1.30); EST Glomerular Filtration Rate 64 mL/min (>60); Est Glom Filt Rate - Afr Amer 78 mL/min (>60); Glucose 84 mg/dL (74-106); Potassium 3.8 mmol/L (3.5-5.1); Sodium Level 141 mmol/L (136-145)
[2019-06-25 08:12] VITALS: BMI 22.3
--- NOTE | 2019-06-26 09:28 | CL.D_ITS ---
Patient Name: SEEMA CHACON Study Date: 06/26/2019 Performing: Mikhail Moran MD Ht: 72.83 inches 185 cm : 1935 Wt: 169.76 lbs 77 kg Age: 83 Gender: male BSA: 2 PROCEDURE(S) PERFORMED [id number] DC11-AO ROOT ANGIO WITH HEART CATH CLINICAL PROFILE AND INDICATIONS Indications: Valvular Disease, Pre-Operative Evaluation Heart Failure: None Stress/Imaging Stress/Image Study Performed: No Angina Classification Anginal Classification w/in 2 Weeks: No symptoms CAD Presentations: Other: shortness of breath CONCLUSIONS [place] Multivessel CAD Aortic Root Angiographically Normal Aortic Valve Calcification- Severe RECOMMENDATIONS Risk factor modification Medical therapy Surgery consult for coronary revascularization Surgery consult for valvular disease DESCRIPTION OF PROCEDURE The patient arrived to the procedure lab. The risks and benefits of the procedure as well as a full d escription of our services here and current unavailability of surgical backup were fully explained to the patient and/or their significant other prior to the catheterization. The Timeout was completed, verifying the correct patient and procedure. The patient's procedural site was prepped and draped in the usual fashion. Local anesthetic was given subcutaneously to right groin region with Lidocaine 2%. Using a modified Seldinger technique, arterial access was obtained via the right femoral artery, a 4 Fr x 45cm sheath was inserted Left Coronary Artery selective angiography was performed in multiple v iews using a 4 Fr. JL5 catheter. Right Coronary Artery selective angiography was then performed in mu ltiple views using a 4 Fr. 3DRC catheter. Ascending (root) aorta selective angiography was then perfo rmed in single view using a 4Fr. Pigtail. Ascending (root) aorta selective angiography was then performed in single view using a 4Fr. Pigtail.The arterial sheath was pulled and manual compress ion applied until hemostasis is achieved. CORONARY ANGIOGRAPHY DOMINANCE: Right Dominant LEFT HEART ASSESSMENT Left Ventricular Ejection Fraction: Not assessed LEFT MAIN: Mild calcification, proximal: eccentric: 25 % Stenosis, distal: eccentric: 25 % Stenosis LEFT ANTERIOR DESCENDING ARTERY: Mild luminal irregularities PROX LAD: Moderate calcification DIAGONAL 1: Proximal - Moderate calcification, Proximal - diffuse: 75 % Stenosis CIRCUMFLEX ARTERY: Mild luminal irregularities MID CIRC: occluded: mid - distal filling late, faintly, and partially OM 1: small vessel: proximal; hazy: 75 % Stenosis RIGHT CORONARY ARTERY: Mild luminal irregularities diffuse: eccentric: 10 - 25 % Stenosis RT PDA: Mid - Mild luminal irregularities RIGHT AV SEGMENT: ostial: 75 % Stenosis COLLATERAL FLOW: Collateral flow from Left to Left Collateral flow from Right to Left VALVE FINDINGS: Aortic Valve Calcification - severe AORTIC ROOT: Angiographically normal COMPLICATIONS No Complications PROCEDURE MEDICATIONS Versed 1 mg IV Oxygen: 2 L/min via nasal cannula SUMMARY OF HEMODYNAMIC DATA Time AIR REST ECG 07:01:52 AO 98/54 (74) SA 08:42:11 AO 107/55 (76) 08:54:28 Signed By Mikhail Moran MD On 06/26/2019 09:27:57 Mikhail Moran MD
== END 2019-06-26 13:30 | disposition home or self-care (01) ==
LOC: CLSP 06:39
PROVIDERS: Family Provider Family Medicine; PCP Family Medicine; Referring Provider Internal Medicine Cardiovascular Disease; Visit Provider Internal Medicine Cardiovascular Disease
DX: I25.10 Atherosclerotic heart disease of native coronary artery without angina pectoris (principal); I35.0 Nonrheumatic aortic (valve) stenosis; I71.4 Abdominal aortic aneurysm, without rupture; I10 Essential (primary) hypertension; E78.5 Hyperlipidemia, unspecified; I25.2 Old myocardial infarction; G47.30 Sleep apnea, unspecified; N40.0 Benign prostatic hyperplasia without lower urinary tract symptoms; M10.9 Gout, unspecified; Z85.01 Personal history of malignant neoplasm of esophagus; Z87.442 Personal history of urinary calculi; Z95.1 Presence of aortocoronary bypass graft; Z79.82 Long term (current) use of aspirin; Z79.899 Other long term (current) drug therapy; Z87.891 Personal history of nicotine dependence; R06.02 Shortness of breath
CPT/HCPCS: 36415; 71046; 80048; 85025; 85610; 85730; 93454; 93567; 99152; 99153; J7040; C1769; C1894; Q9967

== ENCOUNTER → 2020-02-27 12:53 | Outpatient (CLI) | payer MEDICARE, SELFPAY ==
[2020-02-06 12:53] VITALS: BMI 21.1
--- NOTE | 2020-02-27 12:53 | ECHOD_ITS ---
Reason For Study: VALVE REPL Procedure This was a 2D Doppler, Color Flow transthoracic echocardiogram. The exam was of adequate technical quality. Exam performed in department. Left Ventricle Normal LV size. Left ventricular systolic function is normal. The estimated ejection fraction is 60 %. There is evidence of diastolic dysfunction. No regional wall motion abnormalities noted. Right Ventricle Normal RV size. Normal systolic function. Atria The left atrium is moderately enlarged. Normal right atrium. No doppler evidence for ASD. Mitral Valve There is mild mitral annular calcification. Mild diffuse mitral valve thickening. The mitral valve chordae are thickened and/or calcified. The mitral papillary muscle appears thickened and/or calcified. Mild-Moderate (1-2+) mitral valve insufficiency. Tricuspid Valve Normal tricuspid valve. Mild to moderate (1-2+) tricuspid valve insufficiency. Right ventricular systolic pressure estimated to be 26 mmHg. Aortic Valve Mild aortic stenosis. Stable appearing bioprosthetic aortic valve apparatus. Pulmonic Valve The pulmonic valve is not well visualized. Great Vessels Normal sized aortic root. Pericardium/Pleural No pericardial effusion. MMode/2D Measurements & Calculations LVIDd: 4.6 cm IVSd: 0.92 cm LVOT diam: 2.0 cm LVIDs: 3.3 cm LVPWd: 0.93 cm LVOT area: 3.1 cm2 RVDd: 3.5 cm FS: 29.6 % Ao root diam: 3.5 cm LAV(MOD-bp): 82.2 ml LA A4 area: 26.9 cm2 LAV(MOD-bp) Indexed: 42.0 ml/m2 LAV(MOD-sp2): 73.0 ml LAV(MOD-sp4): 92.4 ml LA dimension(2D): 5.0 cm RA A4 area: 17.0 cm2 Time Measurements MV dec time: 0.43 sec Doppler Measurements & Calculations MV E max jose g: 101.5 cm/sec Lat Peak E' Jose G: 4.8 cm/sec Med Peak E' Jose G: 4.3 cm/sec MV A max jose g: 137.6 cm/sec E/E' lat: 21.0 E/E' med: 23.5 MV E/A: 0.74 Ao V2 max: 211.1 cm/sec LV V1 max: 108.4 cm/sec SV(LVOT): 79.3 ml Ao max P.0 mmHg LV V1 max P.7 mmHg Ao V2 mean: 152.9 cm/sec LV V1 mean P.8 mmHg Ao mean P.4 mmHg LV V1 mean: 79.5 cm/sec Ao V2 VTI: 44.0 cm LV V1 VTI: 25.6 cm ANGELIA(I,D): 1.8 cm2 ANGELIA(V,D): 1.6 cm2 PA V2 max: 117.3 cm/sec TR max jose g: 240.5 cm/sec TR max P.2 mmHg Interpretation Summary Left ventricular systolic function is normal. The estimated ejection fraction is 60 %. The left atrium is moderately enlarged. There is mild mitral annular calcification. Mild diffuse mitral valve thickening. The mitral valve chordae are thickened and/or calcified. The mitral papillary muscle appears thickened and/or calcified. Mild-Moderate (1-2+) mitral valve insufficiency. Mild to moderate (1-2+) tricuspid valve insufficiency. Stable appearing bioprosthetic aortic valve apparatus. Mild aortic stenosis. Right ventricular systolic pressure estimated to be 26 mmHg. There is evidence of diastolic dysfunction. Ordering Physician: Jonathan Whatley Referring Physician: KAELA WINKLER Performed By: Marie Zazueta, ABEBA, RVT
== END ==
PROVIDERS: PCP Family Medicine; Referring Provider Nurse Practitioner Family; Visit Provider Nurse Practitioner Family
DX: I25.10 Atherosclerotic heart disease of native coronary artery without angina pectoris (principal); I35.0 Nonrheumatic aortic (valve) stenosis; Z95.2 Presence of prosthetic heart valve
CPT/HCPCS: 93306

== ENCOUNTER 2020-06-13 19:49 | Emergency (ER) | payer MEDICARE, SELFPAY ==
[2020-05-11 13:09] VITALS: BMI 20.8
[2020-06-13 19:50] VITALS: BP 118/73; PULSE 45; RESP 18; TEMP 36.6; O2SAT 99; BMI 21.1
--- NOTE | 2020-06-13 20:06 | ED.VISSUMM ---
- ER Visit Summary Date of Service: 06/13/20 Chief Complaint: Tripped and fell History of Present Illness: The patient is a 84 M history of esophageal and gastric cancer with partial esophagectomy and prior gastrectomy, kidney stones and recent valve replaced at the [facility] several months ago. Patient is on no blood thinners other than aspirin. He was carrying something today he tripped fell landing on the ground causing abrasions to his right forehead and a bruise to his right side. Denies any LOC. Denies any neck pain. Says he felt fine and believes he just simply stumbled and tripped. Denies any other complaints. Physical Examination: Older male no acute distress vital signs stable. Afebrile. H EENT exam pupils round reactive light. Extra motions are intact. He is a nickel sized skin tear right lateral above the eyebrow and also right just lateral to his eye. He did not need to be repaired. We will clean him and dress him. Pupils round reactive laser motions are intact. There is no other facial trauma or scalp trauma. C-spine nontender. Trachea midline. Lungs clear to auscultation. Heart regular rhythm. Rate about 60. Chest wall nontender. Abdomen soft nontender. Patient is moving all 4 extremities. Neurovascular intact. He has normal range of motion. There is no shortening or rotation of either hip. Dorsi plantarflexion intact. Normal motor strength of both hands. He does have a small to moderate sized bruise on his mid right thigh. There is no bony deformity. Back nontender. No signs of trauma. Spine nontender. Neurologically is awake alert with no focal motor deficits. Test Results: Right femur x-ray 2 views read by myself shows no acute normality. No fracture or dislocation. Arthritis of both the hip joint and the knee joint. But no acute injury. Emergency Department Course and Treatment: Patient's nurse will clean and dress the skin tears on his right forehead. They do not need to be suture repaired. X-ray being obtained of the femur. Repeat exam patient is doing well at 2030 2 PM. Treatment Plan: Ice and elevate the femur. Tylenol for pain. Head injury instructions. Wound care. Disposition: discharge Impression: Trip and fall Closed head injury with skin tears to his right forehead Right thigh hematoma This note was generated with [employer] software. It may contain incorrect words, spelling, and punctuation that were not noted in review of the chart prior to signing ED Disposition - Plan for ED Patient: Disposition: Home or Assisted Living Instructions: ED Head Injury Adult, ED Wound Care Referrals: Luis E Brunner III, MD [Primary Care Provider] - 1 Week if not improving Additional Instructions: Keep forehead wounds dry and clean. Apply antibiotic ointment daily. Return if severe headache or vomiting due to the head injury. Tylenol for pain. Ice to the right thigh to decrease the bruising and swelling. Follow-up with your doctor if not improving.
--- NOTE | 2020-06-13 20:10 | RAD_ITS ---
STUDY: X-RAY - RIGHT FEMUR REASON FOR STUDY: Male, 84 years old. FALL THIS AM. PAIN AND BRUISING ON DISTAL MEDIAL FEMUR. TECHNIQUE: 4 view(s) of the femur. COMPARISON: None. FINDINGS: No evidence for acute fracture or dislocation. There is mild narrowing of the superior aspect joint with subchondral cystic changes in the femoral head and mild spurring of the acetabulum.. There is narrowing of the medial compartment of the knee joint Normal visualized soft tissue structure. RAD/Femur Min 2 Views IMPRESSION: Degenerative changes of the right hip and knee.... No evidence for acute femoral fracture or other significant bony pathology Electronically Signed: Jordan Heredia MD at 20:34 EDT , Service support ,
--- NOTE | 2020-06-13 20:10 | ED.DEP ---
ED Disposition - Plan for ED Patient: Disposition: Home or Assisted Living Instructions: ED Head Injury Adult, ED Wound Care Referrals: Luis E Brunner III, MD [Primary Care Provider] - 1 Week if not improving Additional Instructions: Keep forehead wounds dry and clean. Apply antibiotic ointment daily. Return if severe headache or vomiting due to the head injury. Tylenol for pain. Ice to the right thigh to decrease the bruising and swelling. Follow-up with your doctor if not improving.
[2020-06-13 20:51] VITALS: BP 128/79; PULSE 52; RESP 16; O2SAT 98
== END 2020-06-13 20:51 | disposition home or self-care (01) ==
LOC: ED 20:41
PROVIDERS: Emergency Provider Emergency Medicine; PCP Family Medicine
DX: S01.81XA Laceration without foreign body of other part of head, initial encounter (principal); S70.11XA Contusion of right thigh, initial encounter; W01.0XXA Fall on same level from slipping, tripping and stumbling without subsequent striking against object, initial encounter; Y93.89 Activity, other specified; Y92.9 Unspecified place or not applicable; Y99.9 Unspecified external cause status; M16.11 Unilateral primary osteoarthritis, right hip; I25.10 Atherosclerotic heart disease of native coronary artery without angina pectoris; I10 Essential (primary) hypertension; Z79.82 Long term (current) use of aspirin
CPT/HCPCS: 73552; 99282

== ENCOUNTER 2020-10-15 09:25 | Outpatient (RCR) | payer MEDICARE, SELFPAY ==
[2020-10-15] MEDS: COVID-19 VACC, MRNA(PFIZER)/PF 30 MCG/0.3 ML SYRINGE IM (13:36)
[2020-11-05] MEDS: COVID-19 VACC, MRNA(PFIZER)/PF 30 MCG/0.3 ML SYRINGE IM (13:29)
== END 2021-01-19 23:59 ==
LOC: IMMUN 09:25
PROVIDERS: PCP Family Medicine; Visit Provider Family Medicine
DX: Z23 Encounter for immunization (principal)
CPT/HCPCS: 0001A; 0002A; 91300

== ENCOUNTER 2022-05-15 21:50 | Emergency (ER) | payer MEDICARE, SELFPAY ==
[2022-05-15 21:52] VITALS: BP 135/88; PULSE 96; RESP 18; TEMP 36.7; O2SAT 97; BMI 21.1
--- NOTE | 2022-05-15 22:00 | RAD_ITS ---
EXAM: XR RIGHT KNEE COMPLETE, 4 OR MORE VIEWS CLINICAL INDICATION: Fall with right knee injury. TECHNIQUE: Four or more views of the right knee. This report was created using [employer] report generation technology. COMPARISON: None. FINDINGS: BONES/JOINTS: Severe medial joint space narrowing with marginal osteophytes. Mild lateral joint space narrowing. Chondrocalcinosis. Moderate patellofemoral osteophytes. No acute fracture. No subluxation. Normal alignment. No sclerotic or destructive changes observed. SOFT TISSUES: Unremarkable. No soft tissue swelling or gas. No radiopaque foreign body. VASCULATURE: Extensive vascular calcifications. RAD/Knee 4 or More Views IMPRESSION: Severe degenerative changes especially involving the medial joint space with chondrocalcinosis. Electronically Signed: eDz Reyes MD at 23:21 EDT ,
--- NOTE | 2022-05-15 22:19 | CT_ITS ---
EXAM: CT HEAD WITHOUT INTRAVENOUS CONTRAST CLINICAL INDICATION: The patient fell. Head injury. TECHNIQUE: Multiple axial images were obtained of the head without intravenous contrast. This CT exam was performed using one or more of the following dose reduction techniques: automated exposure control, adjustment of the mA and/or kV according to patient size, and/or use of iterative reconstruction technique. This report was created using [employer] report generation technology. RADIATION DOSE: CTDIvol = 44.99 mGy, DLP = 863.60 mGy-cm. COMPARISON: None. FINDINGS: BRAIN AND EXTRA-AXIAL SPACES: Mild generalized atrophy. Mild low density bilaterally in the deep white matter. No intra- or extra-axial hemorrhage. No evidence of acute infarct. No intracranial mass or mass effect. There is preservation of the perez/white matter interface. Posterior fossa structures are unremarkable. No hydrocephalus. Basal cisterns are patent. BONES/JOINTS: Unremarkable. No discrete lytic or blastic abnormalities. SINUSES: Unremarkable as visualized. Clear. MASTOID AIR CELLS: Unremarkable. Clear. ORBITS: Mild right periorbital soft tissue swelling/laceration. Normal orbital contents. CT/Brain/Head without Contrast IMPRESSION: 1. Mild generalized atrophy. Mild low density bilaterally in the deep white matter. This likely represents small vessel ischemic changes in the deep white matter. 2. Mild right periorbital soft tissue swelling/laceration. Electronically Signed: Dez Reyes MD at 23:15 EDT ,
--- NOTE | 2022-05-15 22:19 | CT_ITS ---
EXAM: CT MAXILLOFACIAL WITHOUT INTRAVENOUS CONTRAST CLINICAL INDICATION: Fall with facial injury. TECHNIQUE: Helically acquired images were obtained of the face without intravenous contrast. This CT exam was performed using one or more of the following dose reduction techniques: automated exposure control, adjustment of the mA and/or kV according to patient size, and/or use of iterative reconstruction technique. This report was created using [employer] report generation technology. RADIATION DOSE: CTDIvol = 29.38 mGy, DLP = 613.57 mGy-cm. COMPARISON: None. FINDINGS: BONES/JOINTS: Unremarkable. No displaced fracture. No discrete lytic or blastic abnormalities. SOFT TISSUES: Mild right periorbital soft tissue swelling/laceration. No discrete fluid collections. ORBITS: Unremarkable. Both globes are unremarkable. Extraocular muscles are normal. Retrobulbar fat appears unremarkable. SINUSES: Unremarkable as visualized. Clear. MASTOID AIR CELLS: Unremarkable as visualized. Clear. DENTAL: Periodontal disease involving the mandible. CT/Sinus/Facial Bone IMPRESSION: 1. No facial fractures. 2. Mild right periorbital soft tissue swelling/laceration. 3. Periodontal disease involving the mandible. Electronically Signed: Dez Reyes MD at 23:16 EDT ,
--- NOTE | 2022-05-15 22:19 | RAD_ITS ---
EXAM: XR LEFT KNEE COMPLETE, 4 OR MORE VIEWS CLINICAL INDICATION: Fall with left knee injury. TECHNIQUE: Four or more views of the left knee. This report was created using [employer] report generation technology. COMPARISON: None. FINDINGS: BONES/JOINTS: Moderate medial joint space narrowing with marginal osteophytes. Chondrocalcinosis. Mild patellofemoral joint degenerative changes with marginal osteophytes. No acute fracture. No subluxation. Normal alignment. No sclerotic or destructive changes observed. SOFT TISSUES: Unremarkable. No soft tissue swelling or gas. No radiopaque foreign body. VASCULATURE: Diffuse vascular calcifications. RAD/Knee 4 or More Views IMPRESSION: Moderate degenerative changes and chondrocalcinosis. Electronically Signed: Dez Reyes MD at 23:22 EDT ,
--- NOTE | 2022-05-15 22:20 | ED.VIS.FALL ---
HPI HPI - Fall History of Present Illness Chief Complaint: Fall Informant: patient Occured/Mechanism Occurred: Today Mechanism/Context: Yes same level fall Pain/Injury Pain Location: face and lower extremity Quality of Pain: Aching Current Severity: Mild Maximum Severity: Mild Narrative Narrative: Patient presents after a fall at local grocery store tonight. He states he tripped over the corner of a pallet and fell. He struck both knees as well as his face. He did not lose consciousness. He takes baby aspirin but no other form of blood thinner. He presents with a laceration to the lateral portion of his right eyebrow as well as his nose. [facility] Medical History (Updated 05/15/22 @ 23:[address] Brandi Irvin MD) Abdominal aortic aneurysm (AAA) Abdominal aortic aneurysm without rupture Atherosclerotic heart disease of [place] coronary artery without angina pectoris BPH (benign prostatic hyperplasia) CAD (coronary artery disease) Esophageal cancer Essential hypertension Gastric adenocarcinoma Gout History of left heart catheterization (LHC) (~06/26/19) HTN (hypertension) Hyperlipidemia Murmur, cardiac Non-rheumatic aortic stenosis Old myocardial infarction Presence of stent in coronary artery (~09/05/02) Sleep apnea Home Medications multivitamin with folic acid 400 mcg tablet 2 tab PO DAILY supplement 04/22/14 [History Last Taken 03/19/19] omeprazole 40 mg capsule,delayed release 40 mg PO DAILY 06/30/16 [History Last Taken 06/26/19] tamsulosin 0.4 mg capsule 0.4 mg PO DAILY 05/26/17 [History Last Taken 03/18/19] acetaminophen 325 mg tablet 650 mg PO Q6H PRN PRN Fever >100.4 03/21/19 [Rx Last Taken Unknown] aspirin 81 mg tablet,delayed release 81 mg PO DAILY #30 tabs 06/10/19 [Rx Last Taken 06/26/19] sildenafil 100 mg tablet 100 mg PO DAILY PRN sexual activity #4 tabs 11/17/21 [Rx Last Taken Unknown] furosemide 20 mg tablet 20 mg PO DAILY 05/15/22 [History Last Taken Unknown] Allergy/AdvReac Type Severity Reaction Status Date / Time adhesive Allergy burn-like Verified 05/15/22 21:52 cortisone [Cortisone] Allergy Rash Verified 05/15/22 21:52 simvastatin AdvReac joint/muscle Verified 05/15/22 21:52 aches Family History Father Congestive heart failure Surgical History H/O right inguinal hernia repair History of cholecystectomy History of cholecystectomy History of gastrectomy (~07/2014) Presence of coronary angioplasty implant and graft (~09/05/02) S/P TAVR (transcatheter aortic valve replacement) (~12/27/19) Social History Smoking Status: Former smoker alcohol intake: never substance use type: does not use ROS ROS ED Constitutional Constitutional ED: Denies chills or fever(s) Eyes Eyes: Denies change in vision or discharge from eye(s) ENT ENT ED: Denies discharge from eye(s), rhinorrhea or sore throat Cardiovascular Cardiovascular: Denies chest pain or palpitations Respiratory/Chest Respiratory/Chest: Denies cough or dyspnea Gastrointestinal Gastrointestinal: Denies abdominal pain, nausea or vomiting Genitourinary Genitourinary ED: Denies dysuria Musculoskeletal Musculoskeletal: Reports extremity pain; Denies back pain Integumentary Reports Abrasions; Denies rash Neurologic Neurologic: Denies headache(s) or weakness Psychiatric Psychiatric: Denies depression Allergic/Immunologic Allergic/Immunologic ED: Denies lip swelling or urticaria EXAM Physical Exam Narrative Exam Narrative: Patient sitting upright in bed no acute distress. Alert and talkative. Const Vital Signs: 05/15/22 21:52 05/15/22 22:02 Temperature 98.1 F Temperature Source Temporal Pulse Rate 96 Respiratory Rate 18 Respiratory Effort Normal Non-Labored Respiratory Depth Normal Respiratory Pattern Normal Blood Pressure 135/88 H Blood Pressure Mean 103 Pulse Ox 97 Oxygen Delivery Method Room Air Room Air Positive well nourished and well developed General Appearance ED: well developed HEENT Reports normocephalic HEENT Narrative: Superficial laceration to the lateral portion of the right eyebrow. Superficial flap laceration to the lateral aspect of the right nose. Bleeding is well controlled on both sides. No midface instability. Eyes PERRL and EOMs intact bilaterally Neck full ROM Neck Narrative: No C-spine tenderness. Resp normal respiratory effort and clear to auscultation bilaterally Cardio regular rate and regular rhythm GI non-tender and non-distended Extremity Extremity Narrative: Mild ecchymosis over the anterior left knee. No significant bony tenderness. Mild tenderness to the right knee. 2+ bilateral symmetric edema noted to the lower extremities. Neuro oriented x3 and moves all extremities Psych mental status grossly normal Skin Skin Narrative: Superficial lacerations as documented above. MDM MDM MDM Narrative Medical decision making narrative: Tetanus update provided. Patient sent for CT scan of the head and facial bones. X-rays of the bilateral knees ordered. Radiography Diagnostic Testing: Clinical Impression(s) from Imaging Studies Knee X-Ray 05/15/22 22:00 IMPRESSION: Severe degenerative changes especially involving the medial joint space with chondrocalcinosis. Electronically Signed: Dez Reyes MD at 23:21 EDT Reading Location ID and State: [facility] - [place] / [place] Tel , Service support , Brain CT 05/15/22 22:19 IMPRESSION: 1. Mild generalized atrophy. Mild low density bilaterally in the deep white matter. This likely represents small vessel ischemic changes in the deep white matter. 2. Mild right periorbital soft tissue swelling/laceration. Electronically Signed: Dez Reyes MD at 23:15 EDT , Facial/Sinus 05/15/22 22:19 IMPRESSION: 1. No facial fractures. 2. Mild right periorbital soft tissue swelling/laceration. 3. Periodontal disease involving the mandible. Electronically Signed: Dez Reyes MD at 23:16 EDT Reading Location ID and State: [email or web address] / [place] Tel , Service support , Knee X-Ray 05/15/22 22:19 IMPRESSION: Moderate degenerative changes and chondrocalcinosis. Electronically Signed: Dez Reyes MD at 23:22 EDT Reading Location ID and State: [facility] / [place] Tel , Service support , Treatment and Re-Evaluation Narrative: Patient's wounds are cleansed. He has a 1 cm superficial laceration to the lateral portion of the right eyebrow. This is cleansed and sealed with Dermabond. There is a 1/2 cm flap superficial laceration to the right side of the nose. This is cleansed and sealed with Dermabond as well. Bilateral knee x-rays per my interpretation reveal arthritic changes with no acute fractures. Radiology interpretation is reviewed. No acute fractures noted. CT scan the head shows mild generalized atrophy. CT of the facial bones show no facial fractures. There is periorbital soft tissue swelling/laceration. Test results discussed with patient and family at bedside. He will be discharged home with family at this time. Discharge Plan Triage Chief Complaint: Fall Other Complaint: Head Injury Laceration ED Provider: Brandi Irvin Dx/Rx/DC Orders Clinical Impression: Fall, Facial laceration, Contusion of knee Instructions: ED Head Injury (Adult), ED Laceration, Face: Skin Glue Prescriptions: No Action aspirin 81 mg tablet,delayed release (DR/EC) 81 mg PO DAILY Qty: 30 3RF sildenafil 100 mg tablet 100 mg PO DAILY PRN (Reason: sexual activity) Qty: 4 5RF Rx Instructions: administer 30 minutes to 4 hours before activity multivitamin with folic acid 1 TABLET tablet 2 tab PO DAILY Label Comments: vitamin omeprazole 40 MG capsule 40 mg PO DAILY Label Comments: ACID REFLUX tamsulosin 0.4 MG capsule 0.4 mg PO DAILY acetaminophen 325 MG tablet 650 mg PO Q6H PRN PRN (Reason: Fever >100.4) 0RF furosemide 20 mg tablet 20 mg PO DAILY Primary Care Provider: Lex Gold Referrals: Lex Gold MD [Primary Care Provider] - As Needed Disposition Disposition: Home, Self Care
[2022-05-15] MEDS: Diphth,Pertuss(Acell),Tet Vac 0.5 ML Vial IM (22:51)
[2022-05-15 23:44] VITALS: BP 127/77; PULSE 76; RESP 18; O2SAT 95
== END 2022-05-15 23:45 | disposition home or self-care (01) ==
PROVIDERS: Emergency Provider Emergency Medicine; PCP Internal Medicine; Visit Provider Emergency Medicine
DX: S01.111A Laceration without foreign body of right eyelid and periocular area, initial encounter (principal); S01.21XA Laceration without foreign body of nose, initial encounter; S80.02XA Contusion of left knee, initial encounter; W01.10XA Fall on same level from slipping, tripping and stumbling with subsequent striking against unspecified object, initial encounter; Y92.512 Supermarket, store or market as the place of occurrence of the external cause; I25.10 Atherosclerotic heart disease of native coronary artery without angina pectoris; I25.2 Old myocardial infarction; I10 Essential (primary) hypertension; E78.5 Hyperlipidemia, unspecified; Z95.2 Presence of prosthetic heart valve; Z95.5 Presence of coronary angioplasty implant and graft; Z79.82 Long term (current) use of aspirin; Z79.899 Other long term (current) drug therapy; Z87.891 Personal history of nicotine dependence; Z23 Encounter for immunization
CPT/HCPCS: 12011; 70450; 70486; 73564; 90471; 90715; 99282

== ENCOUNTER → 2022-05-23 | Outpatient (CLI) | payer MEDICARE, SELFPAY ==
[2022-05-23 16:38] LABS: Anion Gap 6 (5-15); BUN 34 mg/dL (7-18); BUN/Creat Ratio 28.6 RATIO (10-20); Calcium,Total 8.6 mg/dL (8.5-10.1); Chloride 113 mmol/L (98-107); Creatinine, Serum 1.19 mg/dL (0.70-1.30); EST Glomerular Filtration Rate 62 mL/min (>60); Est Glom Filt Rate - Afr Amer 75 mL/min (>60); Glucose 91 mg/dL (74-106); Potassium 4.2 mmol/L (3.5-5.1); Sodium Level 144 mmol/L (136-145)
== END | disposition home or self-care (01) ==
LOC: LAB 14:07
PROVIDERS: PCP Internal Medicine; Referring Provider Nurse Practitioner Gerontology; Visit Provider Nurse Practitioner Gerontology
DX: R60.0 Localized edema (principal)
CPT/HCPCS: 36415; 80048

== ENCOUNTER → 2022-05-26 | Outpatient (CLI) | payer MEDICARE, SELFPAY ==
[2022-05-26 15:40] LABS: Absolute Lymphocyte Count 1.71 X10^3/uL (0.83-4.51); Absolute Neutrophil Count 2.5 X10^3/uL (2.0-7.7); Basophil# 0.08 X10^3/uL; Basophil% 1.7 % (0-1); Eosinophil# 0.02 X10^3/uL; Eosinophils% 0.4 % (0-5); Hematocrit 39.1 % (40-54); Hemoglobin 12.5 g/dL (13.0-16.5); Lymphocyte # 1.71 X10^3/ul (0.83-4.51); Lymphocyte % 35.7 % (19-41); Mean Corpuscular Hgb 32.5 pg (27.0-32.0); Mean Corpuscular Volume 101.6 fL (80-94); Monocyte% 8.4 % (0-10); NRBC Flagged by Analyzer 0 % (0-5); Neutrophil # 2.47 X10^3/uL (2.7-7.7); Neutrophil % 51.5 % (47-70); Platelet Count 142 K/mm3 (150-450); RBC Distribution Width CV 15.8 % (11.6-14.6); RBC Distribution Width SD 59.7 fl (35.1-43.9); Red Blood Count 3.85 M/mm3 (4.6-6.2); White Blood Count 4.8 K/mm3 (4.4-11.0)
[2022-05-26 16:16] LABS: Anion Gap 4 (5-15); BUN 34 mg/dL (7-18); Calcium,Total 8.6 mg/dL (8.5-10.1); Chloride 114 mmol/L (98-107); Creatinine, Serum 1.31 mg/dL (0.70-1.30); EST Glomerular Filtration Rate 55 mL/min (>60); Est Glom Filt Rate - Afr Amer 67 mL/min (>60); Glucose 98 mg/dL (74-106); Potassium 4.1 mmol/L (3.5-5.1); Sodium Level 143 mmol/L (136-145)
== END | disposition home or self-care (01) ==
LOC: LAB 14:27
PROVIDERS: PCP Internal Medicine; Referring Provider Nurse Practitioner Gerontology; Visit Provider Nurse Practitioner Gerontology
DX: R60.0 Localized edema (principal); R53.83 Other fatigue
CPT/HCPCS: 36415; 80048; 85025

== ENCOUNTER → 2022-05-31 | Outpatient (CLI) | payer MEDICARE, SELFPAY ==
--- NOTE | 2022-05-31 14:05 | ECHOD_ITS ---
Reason For Study: TAVR, FATIGUE Procedure This was a 2D Doppler, Color Flow transthoracic echocardiogram. The exam was of adequate technical quality. Exam performed in department. Left Ventricle Normal LV size. Left ventricular systolic function is normal. The estimated ejection fraction is 65 %. Stage 2 diastolic dysfunction. No regional wall motion abnormalities noted. Right Ventricle Normal RV size. Normal systolic function. Atria The left atrium is mildly enlarged. Normal right atrium. No doppler evidence for ASD. Mitral Valve There is mild mitral annular calcification. Extension of the mitral annular calcification onto the base of the posterior mitral valve leaflet. Anterior leaflet diffuse mitral valve thickening. The mitral valve chordae are thickened and/or calcified. The mitral papillary muscle appears thickened and/or calcified. Mild mitral valve stenosis. Mild-Moderate (1-2+) eccentric mitral valve insufficiency. Tricuspid Valve Mild diffuse thickening of the tricuspid valve. Moderate (2+) tricuspid valve insufficiency. Right ventricular systolic pressure estimated to be 26 mmHg. Aortic Valve Stable appearing bioprosthetic aortic valve apparatus. Pulmonic Valve The pulmonic valve is not well visualized. Mild (1+) pulmonic valve insufficiency. Great Vessels Normal sized aortic root. Pericardium/Pleural Trivial pericardial effusion. There are no echocardiographic indications of cardiac tamponade. MMode/2D Measurements & Calculations LVIDd: 4.4 cm IVSd: 0.86 cm LVOT diam: 2.0 cm LVIDs: 3.0 cm LVPWd: 0.84 cm LVOT area: 3.3 cm2 RVDd: 3.6 cm FS: 31.1 % Ao root diam: 3.0 cm LAV(MOD-bp): 77.5 ml LVAd ap4: 34.3 cm2 LAV(MOD-bp) Indexed: 39.1 ml/m2 LVLd ap4: 8.5 cm LAV(MOD-sp2): 72.9 ml EDV(MOD-sp4): 112.9 ml LAV(MOD-sp4): 75.5 ml EDV(sp4-el): 117.1 ml LVAs ap4: 20.3 cm2 LVLs ap4: 7.2 cm ESV(MOD-sp4): 48.6 ml ESV(sp4-el): 48.6 ml EF(MOD-sp4): 56.9 % EF(sp4-el): 58.6 % SV(MOD-sp4): 64.3 ml SV(sp4-el): 68.6 ml LA A4 area: 26.1 cm2 LA dimension(2D): 4.0 cm RA A4 area: 17.9 cm2 Time Measurements MV dec time: 0.47 sec Doppler Measurements & Calculations MV E max jose g: 112.8 cm/sec Lat Peak E' Jose G: 8.6 cm/sec Med Peak E' Jose G: 6.4 cm/sec MV A max jose g: 128.2 cm/sec E/E' lat: 13.1 E/E' med: 17.6 MV E/A: 0.88 MV V2 max: 129.4 cm/sec MV P1/2t max jose g: 118.9 cm/sec Ao V2 max: 286.2 cm/sec MV max P.7 mmHg MV P1/2t: 139.4 msec Ao max P.8 mmHg MV V2 mean: 83.3 cm/sec Ao V2 mean: 193.6 cm/sec MV mean P.2 mmHg MV dec slope: 249.7 cm/sec2 Ao mean P.6 mmHg MV V2 VTI: 46.9 cm MVA(P1/2t): 1.6 cm2 Ao V2 VTI: 59.1 cm MVA(VTI): 1.7 cm2 ANGELIA(I,D): 1.3 cm2 ANGELIA(V,D): 1.1 cm2 LV V1 max: 100.4 cm/sec SV(LVOT): 79.1 ml PA V2 max: 103.4 cm/sec LV V1 max P.3 mmHg LV V1 mean P.3 mmHg LV V1 mean: 75.7 cm/sec LV V1 VTI: 24.2 cm TR max jose g: 236.4 cm/sec TR max P.5 mmHg ECHO/Echo Complete Interpretation Summary Left ventricular systolic function is normal. The estimated ejection fraction is 65 %. The left atrium is mildly enlarged. There is mild mitral annular calcification. Extension of the mitral annular calcification onto the base of the posterior mi tral valve leaflet. Anterior leaflet diffuse mitral valve thickening. The mitral valve chordae are thickened and/or calcified. The mitral papillary muscle appears thickened and/or calcified. Mild mitral valve stenosis. Mild-Moderate (1-2+) eccentric mitral valve insufficiency. Moderate (2+) tricuspid valve insufficiency. Stable appearing bioprosthetic aortic valve apparatus. Mild (1+) pulmonic valve insufficiency. Trivial pericardial effusion. There are no echocardiographic indications of cardiac tamponade. Right ventricular systolic pressure estimated to be 26 mmHg. Stage 2 diastolic dysfunction. Ordering Physician: Patti Schroeder Referring Physician: ANANYA GALINDO Performed By: Yanely Abraham RDCS
== END | disposition home or self-care (01) ==
LOC: CVS 14:05
PROVIDERS: PCP Internal Medicine; Referring Provider Nurse Practitioner Gerontology; Visit Provider Nurse Practitioner Gerontology
DX: R53.83 Other fatigue (principal); Z95.2 Presence of prosthetic heart valve
CPT/HCPCS: 93306

== ENCOUNTER 2022-06-26 18:31 | Inpatient (IN) | payer MEDICARE, SELFPAY ==
[2022-06-26 18:32] VITALS: BP 146/111; PULSE 48; RESP 22; TEMP 38.8; O2SAT 91; BMI 23.3
--- NOTE | 2022-06-26 18:49 | EKG12_ITS ---
Test Reason : FEVER Blood Pressure : / mmHG Vent. Rate : 115 BPM Atrial Rate : 115 BPM P-R Int : 164 ms QRS Dur : 128 ms QT Int : 346 ms P-R-T Axes : 072 -48 023 degrees QTc Int : 478 ms Sinus tachycardia Left axis deviation Right bundle branch block Inferior infarct , age undetermined Abnormal ECG Confirmed by NATALY ROLLE, RANDA ([id number]), editor map MARIA EUGENIA TAO ([id number]) on 06/28/2022 11:20:34 AM Referred By: Confirmed By:RANDA INGRAM MD
--- NOTE | 2022-06-26 18:50 | EX.ED.DYSGE1 ---
HPI <MELANIA Estrada - Last Filed: 06/26/22 21:07> History of Present Illness Chief Complaint: Confusion Narrative Narrative: 86-year-old male with history of BPH, CAD, lower leg edema presents to the emergency department for fever, confusion. Patient arrives by ambulance, patient lives with his . Patient states to have pain all over, patient states that he has been shaking. He states that he is overall not feeling well. However patient is confused, this is not his norm. A reliable history is unable to be obtained by the patient secondary to his fever and confusion. [facility] <MELANIA Estrada - Last Filed: 06/26/22 21:07> [facility] Medical History (Updated 06/26/22 @ 20:[address] Mckay Boo, ) Abdominal aortic aneurysm (AAA) Abdominal aortic aneurysm without rupture Atherosclerotic heart disease of [place] coronary artery without angina pectoris BPH (benign prostatic hyperplasia) CAD (coronary artery disease) Esophageal cancer Essential hypertension Gastric adenocarcinoma Gout History of left heart catheterization (LHC) (~06/26/19) HTN (hypertension) Hyperlipidemia Murmur, cardiac Non-rheumatic aortic stenosis Old myocardial infarction Presence of stent in coronary artery (~09/05/02) Sleep apnea Home Medications multivitamin with folic acid 400 mcg tablet 2 tab PO DAILY supplement 04/22/14 [History Last Taken 03/19/19] omeprazole 40 mg capsule,delayed release 40 mg PO DAILY 06/30/16 [History Last Taken 06/26/19] tamsulosin 0.4 mg capsule 0.4 mg PO DAILY 05/26/17 [History Last Taken 03/18/19] acetaminophen 325 mg tablet 650 mg PO Q6H PRN PRN Fever >100.4 03/21/19 [Rx Last Taken Unknown] aspirin 81 mg tablet,delayed release 81 mg PO DAILY #30 tabs 06/10/19 [Rx Last Taken 06/26/19] sildenafil 100 mg tablet 100 mg PO DAILY PRN sexual activity #4 tabs 11/17/21 [Rx Last Taken Unknown] furosemide 20 mg tablet 20 mg PO DAILY 05/15/22 [History Last Taken Unknown] Allergy/AdvReac Type Severity Reaction Status Date / Time adhesive Allergy burn-like Verified 05/23/22 13:44 cortisone [Cortisone] Allergy Rash Verified 05/23/22 13:44 simvastatin AdvReac joint/muscle Verified 05/23/22 13:44 aches Family History Father Congestive heart failure Surgical History H/O right inguinal hernia repair History of cholecystectomy History of cholecystectomy History of gastrectomy (~07/2014) Presence of coronary angioplasty implant and graft (~09/05/02) S/P TAVR (transcatheter aortic valve replacement) (~12/27/19) Social History (Updated 06/26/22 @ 20:[address] Beatriz Fernandes MD) household members: spouse Smoking Status: Former smoker alcohol intake: never substance use type: does not use ROS <MELANIA Estrada - Last Filed: 06/26/22 21:07> ROS ED ROS Narrative Constitutional: Negative for weight loss, weakness. Positive fever and chills Eyes: Negative for vision loss, vision change, double vision ENT: Negative for any sore throat, ear pain, congestion Cardiovascular: Negative for any chest pain, tightness, palpitations Respiratory: Negative for any cough, sputum production, hemoptysis, dyspnea, dyspnea on exertion, orthopnea Gastrointestinal: Negative for any abdominal pain, nausea, vomiting, diarrhea, constipation, blood in stool, blood in vomit : Negative for any urinary frequency, dysuria, retention, blood in urine Muscle skeletal: Negative for any muscle joint pain, stiffness, arthralgias, neck pain, back pain. Positive for myalgias Neurological: Negative for any headache, syncope, numbness or tingling, dizziness Skin: Negative for any rashes, lumps, itching, abrasions, lacerations Psychiatric: Negative for any depression, anxiety, stress, suicidal ideation, homicidal ideation Hematologic: Negative for any easy bruising, excessive bruising, easy bleeding Allergies: Negative for any eczema, hives, rash EXAM <MELANIA Estrada - Last Filed: 06/26/22 21:07> Physical Exam Narrative Exam Narrative: Vital signs reviewed. Patient has obvious rigors with fever. Alert and orient x1. Patient skin warm to the touch. HEET: Head normocephalic atraumatic, TMs clear bilaterally. Posterior pharynx is clear, dry mucous membranes. Nares clear bilaterally. Neck: Supple with no lymphadenopathy or tenderness. No signs of meningismus, negative jolt sign. Cardiac: bradycardic rate no murmurs gallops or rubs, equal peripheral pulses bilaterally. Respiratory: Lungs clear to auscultation bilaterally. No chest tenderness. Abdomen: Soft, nontender, nondistended. No abdominal bruit or pulsatile masses. No hepatosplenomegaly Extremities: Positive for +2 pitting edema to bilateral lower extremities, no signs of gross trauma or deformity. Active full range of motion of all extremities. Neuro: Cranial nerves II through XII intact, no focal neurological deficits. Skin: Clean dry and intact with no rash, purpura, petechiae, vesicles or pustules. Backs/flank: No CVA tenderness, no midline spinal tenderness, no deformity. Psych: Normal mood and affect. No SI, HI or acute psychosis. Const Vital Signs: 06/26/22 18:32 06/26/22 19:21 06/26/22 20:09 Temperature 101.8 F H Temperature Source Oral Pulse Rate 48 L 95 Respiratory Rate 22 H 22 H Blood Pressure 146/111 H Blood Pressure Mean 122 Pulse Ox 91 96 94 Oxygen Delivery Method Room Air Room Air Room Air <Dr. Mckay Boo DO - Last Filed: 06/26/22 21:20> Physical Exam Const Vital Signs: 06/26/22 18:32 06/26/22 19:21 06/26/22 20:09 Temperature 101.8 F H Temperature Source Oral Pulse Rate 48 L 95 Respiratory Rate 22 H 22 H Blood Pressure 146/111 H Blood Pressure Mean 122 Pulse Ox 91 96 94 Oxygen Delivery Method Room Air Room Air Room Air [facility] <MELANIA Estrada - Last Filed: 06/26/22 21:07> [facility] Lab Data Labs: Laboratory Results - last 24 hr 06/26/22 06/26/22 06/26/22 19:15 19:15 19:15 WBC 8.2 RBC 4.02 L Hgb 12.7 L Hct 39.8 L MCV 99.0 H MCH 31.6 MCHC 31.9 L RDW Std Deviation 58.8 H RDW Coeff of Rain 16.0 H Plt Count 84 L MPV 11.1 Immature Gran % (Auto) 1.800 H Neut % (Auto) 77.4 H Lymph % (Auto) 18.0 L [place] % (Auto) 2.3 Eos % (Auto) 0.1 Baso % (Auto) 0.4 Absolute Neuts (auto) 6.3 Absolute Lymphs (auto) 1.47 Nucleated RBC % 0 Differential Comment SCANNED PT 16.3 H INR 1.3 APTT 42.5 H Sodium 143 Potassium 4.4 Chloride 112 H Carbon Dioxide 23.0 Anion Gap 8 BUN 48 H Creatinine 2.17 H Estim Creat Clear Calc 28.64 Est GFR (MDRD) Af Amer 37 L Est GFR (MDRD) Non-Af 31 L BUN/Creatinine Ratio 22.1 H Glucose 103 Lactic Acid Calcium 7.8 L Total Bilirubin 0.80 AST 54 H ALT 28 Alkaline Phosphatase 328 H Troponin I High Sens Total Protein 6.6 Albumin 2.2 L Globulin 4.4 H Albumin/Globulin Ratio 0.5 L Urine Color Urine Clarity Urine pH Ur Specific [place] Urine Protein Urine Glucose (UA) Urine Ketones Urine Occult Blood Urine Nitrite Urine Bilirubin Urine Urobilinogen Ur Leukocyte Esterase Urine RBC Urine WBC Ur Squamous Epith Cells Amorphous Sediment Urine Bacteria Urine Mucus 06/26/22 06/26/22 06/26/22 19:15 19:15 20:18 WBC RBC Hgb Hct MCV MCH MCHC RDW Std Deviation RDW Coeff of Rain Plt Count MPV Immature Gran % (Auto) Neut % (Auto) Lymph % (Auto) [place] % (Auto) Eos % (Auto) Baso % (Auto) Absolute Neuts (auto) Absolute Lymphs (auto) Nucleated RBC % Differential Comment PT INR APTT Sodium Potassium Chloride Carbon Dioxide Anion Gap BUN Creatinine Estim Creat Clear Calc Est GFR (MDRD) Af Amer Est GFR (MDRD) Non-Af BUN/Creatinine Ratio Glucose Lactic Acid 1.8 Calcium Total Bilirubin AST ALT Alkaline Phosphatase Troponin I High Sens 37 Total Protein Albumin Globulin Albumin/Globulin Ratio Urine Color Yellow Urine Clarity Cloudy Urine pH 5.0 Ur Specific [place] 1.015 Urine Protein 500 H Urine Glucose (UA) Normal Urine Ketones Negative Urine Occult Blood 250 H Urine Nitrite Negative Urine Bilirubin Negative Urine Urobilinogen Normal Ur Leukocyte Esterase 25 H Urine RBC 25-50 SEEN Urine WBC 0-5 SEEN Ur Squamous Epith Cells 0-5 SEEN Amorphous Sediment 1+ URATE Urine Bacteria RARE Urine Mucus 0 SEEN Radiography Diagnostic Testing: Clinical Impression(s) from Imaging Studies Chest X-Ray 06/26/22 19:30 IMPRESSION: No acute findings in the chest. Electronically Signed: Oswald Jasso MD at 19:58 EST , Brain CT 06/26/22 19:44 IMPRESSION: 1. No acute intracranial abnormality. There has been no change from reference examination. 2. Stable underlying senescent change with small vessel ischemia. Electronically Signed: Oswald Jasso MD at 20:48 EST , Treatment and Re-Evaluation Narrative: Patient arrives febrile, tachycardic, confused only alert and orient x1. Patient received a full septic work-up with urine culture, blood cultures x2. IV fluid 1000 mL.Patient CBC was unremarkable. Patient's PT/INR was slightly elevated with a PT of 16.3 with an INR of 1.3. Patient CBC did show some acute kidney injury with a creatinine of 2.17, exactly 1 month ago it was 1.31. Patient's alkaline phosphatase was elevated at 328. Troponin will be ordered. Patient received a chest x-ray which was inter by ER physician shows no acute findings in the chest. Patient did receive a CT scan of the brain which showed chronic changes. At this time, patient will need to be admitted to the hospital for fever unknown origin. Bilateral lower leg edema, acute kidney injury. Metabolic encephalopathy. Patient will receive troponin as well as a respiratory panel. Patient was given 40 mg of IV Lasix, this was a mistake, this was supposed to go to another patient. Patient does have lower leg edema however patient is also suffering from acute kidney injury, this is not the drug of choice. All proper paperwork be filled out regarding this for patient safety. I did speak with Dr. Fernandes regarding this, she is made aware. She will continue to monitor the patient. Patient will still need to be admitted to the hospital. Patient will need to be admitted to the hospital. <Dr. Mckay Boo, DO - Last Filed: 06/26/22 21:20> [facility] MDM Narrative Medical decision making narrative: I have personally performed a face to face assessment of the patient and have reviewed the YOAN Note. I performed a substantive portion of the visit including all aspects of the following. My rees findings include: History is [patient presents the emergency department with increased confusion over the last couple of weeks. It is believed he developed a fever within the last week. History comes from the patient as well as patient's son and [id number]. Patient's been complaining of just generalized weakness. He denies abdominal pain. He does have some discomfort in his left chest for couple of days. Patient denies urinary symptoms. He denies cough. He denies vomiting or diarrhea. Patient seen in conjunction with physician assistant therapy aide and apparently was much more confused on arrival that he currently has is on examining him.] Exam is [HEENT-PERRLA, EOMI. Cranial nerves II through XII grossly intact. TMs clear. Mucous membranes moist. No adenopathy. Cardiovascular-regular rate and rhythm without murmur or ectopy Lungs-clear to auscultation, chest wall stable without crepitus or subcu emphysema Abdomen-normoactive bowel sounds, soft, nontender, no rebound or rigidity, no peritoneal signs. Extremities-intact ?4, normal range of motion, normal pulses, atraumatic. +3 edema both lower extremities have symmetric.] Medical Decison Making [patient had IV line established and had blood cultures ordered. Urine was unremarkable. Chest x-ray was unremarkable. COVID-19 testing was negative. Patient case will be discussed with hospitalist evaluate patient for admission for fever of unknown origin and generalized weakness and acute kidney injury.] Other additions or changes: [None] Lab Data Attestation: I reviewed the patient's lab results. Labs: Laboratory Results - last 24 hr 06/26/22 06/26/22 06/26/22 19:15 19:15 19:15 WBC 8.2 RBC 4.02 L Hgb 12.7 L Hct 39.8 L MCV 99.0 H MCH 31.6 MCHC 31.9 L RDW Std Deviation 58.8 H RDW Coeff of Rain 16.0 H Plt Count 84 L MPV 11.1 Immature Gran % (Auto) 1.800 H Neut % (Auto) 77.4 H Lymph % (Auto) 18.0 L [place] % (Auto) 2.3 Eos % (Auto) 0.1 Baso % (Auto) 0.4 Absolute Neuts (auto) 6.3 Absolute Lymphs (auto) 1.47 Nucleated RBC % 0 Differential Comment SCANNED PT 16.3 H INR 1.3 APTT 42.5 H Sodium 143 Potassium 4.4 Chloride 112 H Carbon Dioxide 23.0 Anion Gap 8 BUN 48 H Creatinine 2.17 H Estim Creat Clear Calc 28.64 Est GFR (MDRD) Af Amer 37 L Est GFR (MDRD) Non-Af 31 L BUN/Creatinine Ratio 22.1 H Glucose 103 Lactic Acid Calcium 7.8 L Total Bilirubin 0.80 AST 54 H ALT 28 Alkaline Phosphatase 328 H Troponin I High Sens Total Protein 6.6 Albumin 2.2 L Globulin 4.4 H Albumin/Globulin Ratio 0.5 L Urine Color Urine Clarity Urine pH Ur Specific [place] Urine Protein Urine Glucose (UA) Urine Ketones Urine Occult Blood Urine Nitrite Urine Bilirubin Urine Urobilinogen Ur Leukocyte Esterase Urine RBC Urine WBC Ur Squamous Epith Cells Amorphous Sediment Urine Bacteria Urine Mucus 06/26/22 06/26/22 06/26/22 19:15 19:15 20:18 WBC RBC Hgb Hct MCV MCH MCHC RDW Std Deviation RDW Coeff of Rain Plt Count MPV Immature Gran % (Auto) Neut % (Auto) Lymph % (Auto) [place] % (Auto) Eos % (Auto) Baso % (Auto) Absolute Neuts (auto) Absolute Lymphs (auto) Nucleated RBC % Differential Comment PT INR APTT Sodium Potassium Chloride Carbon Dioxide Anion Gap BUN Creatinine Estim Creat Clear Calc Est GFR (MDRD) Af Amer Est GFR (MDRD) Non-Af BUN/Creatinine Ratio Glucose Lactic Acid 1.8 Calcium Total Bilirubin AST ALT Alkaline Phosphatase Troponin I High Sens 37 Total Protein Albumin Globulin Albumin/Globulin Ratio Urine Color Yellow Urine Clarity Cloudy Urine pH 5.0 Ur Specific [place] 1.015 Urine Protein 500 H Urine Glucose (UA) Normal Urine Ketones Negative Urine Occult Blood 250 H Urine Nitrite Negative Urine Bilirubin Negative Urine Urobilinogen Normal Ur Leukocyte Esterase 25 H Urine RBC 25-50 SEEN Urine WBC 0-5 SEEN Ur Squamous Epith Cells 0-5 SEEN Amorphous Sediment 1+ URATE Urine Bacteria RARE Urine Mucus 0 SEEN Radiography Diagnostic Testing: Clinical Impression(s) from Imaging Studies Chest X-Ray 06/26/22 19:30 IMPRESSION: No acute findings in the chest. Electronically Signed: Oswald Jasso MD at 19:58 EST , Brain CT 06/26/22 19:44 IMPRESSION: 1. No acute intracranial abnormality. There has been no change from reference examination. 2. Stable underlying senescent change with small vessel ischemia. Electronically Signed: Oswald Jasso MD at 20:48 EST , 1 view chest creatinine interpreted by myself as no acute disease process. Radiology in agreement. EKG Initial EKG: Attestation: I personally reviewed and interpreted this EKG as follows: Comments: Sinus rhythm with a ventricular rate of 115 bpm with a right bundle branch block and old inferior infarct noted Discharge Plan Dx/Rx/DC Orders Clinical Impression: Fever, unknown origin, Acute kidney injury, Generalized weakness, Leg edema, Encephalopathy Disposition Disposition: Acute Care [facility]
[2022-06-26] MEDS: Acetaminophen 500 MG Tablet 1000 MG PO (19:07)
[2022-06-26] MEDS: 0.9% Normal Saline 1,000 ML 999 ML IV (19:09)
[2022-06-26 19:21] VITALS: O2SAT 96
[2022-06-26 19:25] LABS: Mucous, Urine 0 SEEN /hpf (<or=2+)
--- NOTE | 2022-06-26 19:30 | RAD_ITS ---
EXAM: XR CHEST, 1 VIEW CLINICAL INDICATION: cough TECHNIQUE: Frontal view of the chest. This report was created using [employer] report generation technology. COMPARISON: 119 FINDINGS: LUNGS AND PLEURAL SPACES: Unremarkable. No consolidation or edema. No pneumothorax. No effusion. HEART: Prosthetic valve in place. MEDIASTINUM: Central airways and mediastinal contour are unremarkable. BONES/JOINTS: Unremarkable. SOFT TISSUES: Unremarkable. RAD/Chest 1 View (Portable) IMPRESSION: No acute findings in the chest. Electronically Signed: Oswald Jasso MD at 19:58 EST ,
[2022-06-26 19:41] LABS: Color, Urine Yellow (Yellow); Glucose, Dipstick Normal (Normal); Ketone-Dipstick Negative (Negative); Leukocyte Esterase-Dipstick 25 /ul (Negative); Nitrite-Dipstick Negative (Negative); Occult Blood-Urine 250 /ul (Negative); Protein-Dipstick 500 mg/dl (Negative); Specific Gravity, Urine 1.015 (1.002-1.030); Urine Bilirubin Dipstick Negative (Negative); Urine Clarity Cloudy (Clear); Urine Urobilinogen Normal (Normal)
--- NOTE | 2022-06-26 19:44 | CT_ITS ---
EXAM: CT HEAD WITHOUT INTRAVENOUS CONTRAST CLINICAL INDICATION: confusion TECHNIQUE: Multiple axial images were obtained of the head without intravenous contrast. This CT exam was performed using one or more of the following dose reduction techniques: automated exposure control, adjustment of the mA and/or kV according to patient size, and/or use of iterative reconstruction technique. This report was created using [employer] report generation technology. COMPARISON: 05/15/2022 FINDINGS: BRAIN AND EXTRA-AXIAL SPACES: There is mild enlargement of the ventricular system and cortical sulci. There is hypoattenuation in the periventricular white matter. No intra- or extra-axial hemorrhage. No evidence of acute infarct. No intracranial mass or mass effect. There is preservation of the perez/white matter interface. Posterior fossa structures are unremarkable. Basal cisterns are patent. BONES/JOINTS: Unremarkable. No discrete lytic or blastic abnormalities. SINUSES: Unremarkable as visualized. Clear. MASTOID AIR CELLS: Unremarkable. Clear. ORBITS: Visualized globes, extraocular muscles, optic nerves and retrobulbar fat appear unremarkable. CT/Brain/Head without Contrast IMPRESSION: 1. No acute intracranial abnormality. There has been no change from reference examination. 2. Stable underlying senescent change with small vessel ischemia. Electronically Signed: Oswald Jasso MD at 20:48 EST ,
[2022-06-26 19:46] LABS: Absolute Lymphocyte Count 1.47 X10^3/uL (0.83-4.51); Absolute Neutrophil Count 6.3 X10^3/uL (2.0-7.7); Basophil# 0.03 X10^3/uL; Basophil% 0.4 % (0-1); Eosinophil# 0.01 X10^3/uL; Eosinophils% 0.1 % (0-5); Hematocrit 39.8 % (40-54); Hemoglobin 12.7 g/dL (13.0-16.5); Lymphocyte # 1.47 X10^3/ul (0.83-4.51); Mean Corp Hgb Conc 31.9 g/dL (32-36); Mean Corpuscular Hgb 31.6 pg (27.0-32.0); Mean Platelet Vol. 11.1 fl (6.2-12.0); Monocyte# 0.19 X10^3/uL; Monocyte% 2.3 % (0-10); NRBC Flagged by Analyzer 0 % (0-5); Neutrophil # 6.32 X10^3/uL (2.7-7.7); Neutrophil % 77.4 % (47-70); POSITIVE COUNT YES; Platelet Count 84 K/mm3 (150-450); RBC Distribution Width SD 58.8 fl (35.1-43.9); Red Blood Count 4.02 M/mm3 (4.6-6.2); White Blood Count 8.2 K/mm3 (4.4-11.0)
[2022-06-26 19:47] LABS: Differential Indicated SCAN CRITERIA MET
[2022-06-26 19:49] LABS: International Normalized Ratio 1.3; Prothrombin Time (Protime)PT. 16.3 SECONDS (11.7-14.9)
[2022-06-26 19:50] LABS: Partial Thromboplast Time 42.5 Seconds (24.1-36.2)
[2022-06-26 19:54] LABS: Lactic Acid 1.8 mmol/L (0.4-1.9)
[2022-06-26 19:55] LABS: ALB/GLOB Ratio 0.5 RATIO (0.9-2.4); AST(SGOT) 54 U/L (15-37); Alanine Aminotransfer ALT/SGPT 28 U/L (16-61); Albumin, Serum 2.2 g/dL (3.2-5.0); Alkaline Phosphatase 328 U/L (45-117); Anion Gap 8 (5-15); BUN 48 mg/dL (7-18); BUN/Creat Ratio 22.1 RATIO (10-20); Calcium,Total 7.8 mg/dL (8.5-10.1); Chloride 112 mmol/L (98-107); Creatinine, Serum 2.17 mg/dL (0.70-1.30); EST Glomerular Filtration Rate 31 mL/min (>60); Est Glom Filt Rate - Afr Amer 37 mL/min (>60); Estimated Creatinine Clearance 28.64 ml/min; Globulin 4.4 g/dL (2.2-4.2); Glucose 103 mg/dL (74-106); Potassium 4.4 mmol/L (3.5-5.1); Protein, Total 6.6 g/dL (6.4-8.2); Sodium Level 143 mmol/L (136-145)
[2022-06-26 19:56] LABS: Amorphous Sediment 1+ URATE; Bacteria RARE /hpf (None Seen); Red Blood Cells-Urine 25-50 SEEN /hpf (0-5); Squamous Epithelial Cells - UA 0-5 SEEN /hpf (0-5); White Blood Cells 0-5 SEEN /hpf (0-5)
[2022-06-26] MEDS: Furosemide 40 MG/4 ML Vial IV (20:05)
[2022-06-26 20:09] VITALS: PULSE 95; RESP 22; O2SAT 94
[2022-06-26 20:16] LABS: Differential Comment SCANNED
[2022-06-26 20:40] LABS: Troponin-I HS 37 pg/mL (3.0-78.0)
--- NOTE | 2022-06-26 20:43 | PCM.HP.STD ---
HPI - General General Date of Admission: 06/26/22 Date of Service: 06/26/22 Chief Complaint: Fatigue, malaise, fever, chills. 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 He lives at home with his and is definitely not at his baseline per her report. During evaluation did discuss patient's status with his family and they noted that unfortunately the living environment is not ideal however his has been very reticent to transition out of the home to potentially assisted living. Patient's son notes that his mother is not very conducive to assistance or visits and unfortunately the house is very unkempt with several pets specifically cats with feces about the house. Family is very concerned about his wellbeing and hers as well. Work-up in the ED included T101.8, heart rate initially 48 with most recent repeat 95, BP 146/111, respiratory rate 22, 91% on room air initial with improvement to 94% on room air, CBC with WC 8.2, hemoglobin 12.7, platelet 84 with increased immature granulocyte, coags with PT 16.3, INR 1.3, PTT 42.5, CMP with chloride 112, BUN/creat 48/2.17, lactic acid 1.8, hepatic profile with AST 54, alk phos 328 otherwise not marked appearing, troponin 37, chest x-ray with no acute cardiopulmonary findings, blood culture x2 pending per ED, urine culture pending per ED, urinalysis with specific gravity 1.015 known to be cloudy, protein 500, occult blood 250, negative nitrite, leukocyte Estrace only 25 with urine RBCs 25-50 with no marked urine WBCs or bacteria, rapid influenza and COVID antigen testing negative, CT of the head no acute intracranial abnormality, stable underlying senescent change with small vessel ischemia. In the ED patient ministered normal saline 1 L bolus, Tylenol 1000 mg p.o. x1 and an accidental in air administration Lasix 40 mg IV x1. PFSH Medical History Abdominal aortic aneurysm (AAA) Abdominal aortic aneurysm without rupture Atherosclerotic heart disease of [place] coronary artery without angina pectoris BPH (benign prostatic hyperplasia) CAD (coronary artery disease) Esophageal cancer Essential hypertension Gastric adenocarcinoma Gout History of left heart catheterization (LHC) (~06/26/19) HTN (hypertension) Hyperlipidemia Murmur, cardiac Non-rheumatic aortic stenosis Old myocardial infarction Presence of stent in coronary artery (~09/05/02) Sleep apnea Home Medications multivitamin with folic acid 400 mcg tablet 2 tab PO DAILY supplement 04/22/14 [History Last Taken 03/19/19] omeprazole 40 mg capsule,delayed release 40 mg PO DAILY GERD 06/30/16 [History Last Taken 06/26/19] tamsulosin 0.4 mg capsule 0.4 mg PO QHS BPH 05/26/17 [History Last Taken 06/24/22] acetaminophen 325 mg tablet 650 mg PO Q6H PRN PRN Fever >100.4 03/21/19 [Rx Last Taken Unknown] sildenafil 100 mg tablet 100 mg PO DAILY PRN sexual activity #4 tabs 11/17/21 [Rx Last Taken Unknown] furosemide 20 mg tablet 10 mg PO DAILY diuretic 05/15/22 [History Last Taken Unknown] aspirin 81 mg tablet,delayed release 81 mg PO DAILY heart health 06/26/22 [History Last Taken 06/24/22] Allergy/AdvReac Type Severity Reaction Status Date / Time adhesive Allergy burn-like Verified 05/23/22 13:44 cortisone [Cortisone] Allergy Rash Verified 05/23/22 13:44 simvastatin AdvReac joint/muscle Verified 05/23/22 13:44 aches Family History (Updated 06/27/22 @ 02:[address] Beatriz Fernandes MD) Father Congestive heart failure Mother Colon cancer Surgical History H/O right inguinal hernia repair History of cholecystectomy History of cholecystectomy History of gastrectomy (~07/2014) Presence of coronary angioplasty implant and graft (~09/05/02) S/P TAVR (transcatheter aortic valve replacement) (~12/27/19) Social History (Updated 06/27/22 @ 02:[address] Beatriz Fernandes MD) household members: spouse Smoking Status: Former smoker how long ago did patient quit smoking: Quit ~20 yrs prior, smoked since late 20s until quit, pipe specifically. alcohol intake: never substance use type: does not use ROS ROS Narrative Admission Review of Systems: CONSTITUTIONAL: No weight loss, + fever, chills, weakness or fatigue. HEENT: Eyes: No visual loss, blurred vision, double vision or yellow sclerae. Ears, Nose, Throat: No hearing loss, sneezing, congestion, runny nose or sore throat. SKIN: No rash or itching, lesions, wounds. CARDIOVASCULAR: No chest pain, chest pressure or chest discomfort, palpitations, edema, orthopnea, syncopal events. RESPIRATORY: No shortness of breath, cough or sputum, wheezing, hemoptysis. GASTROINTESTINAL: + anorexia, nausea, No vomiting or diarrhea, abdominal pain, melena, BRBPR. GENITOURINARY: No dysuria, frequency, urgency or retention. NEUROLOGICAL: + Confusion/encephalopathy, generalized weakness. No headache, dizziness, syncope, paralysis, ataxia, numbness or tingling in the extremities, focal weakness, change in bowel or bladder control, seizure. MUSCULOSKELETAL: + muscle, back pain, joint pain or stiffness. HEMATOLOGIC: + anemia, bleeding or bruising. LYMPHATICS: No enlarged nodes. No history of splenectomy. PSYCHIATRIC: No history of depression or anxiety. ENDOCRINOLOGIC: No reports of sweating, cold or heat intolerance. No polyuria or polydipsia. ALLERGIES: No history of asthma, hives, eczema or rhinitis. Vital Signs Vital Signs Vital Signs: 06/26/22 18:32 06/26/22 19:21 06/26/22 20:09 Temperature 101.8 F H Temperature Source Oral Pulse Rate 48 L 95 Respiratory Rate 22 H 22 H Blood Pressure 146/111 H Blood Pressure Mean 122 Pulse Ox 91 96 94 Oxygen Delivery Method Room Air Room Air Room Air Weight Weight: 176 lb 9.444 oz Body Mass Index (BMI) 23.3 Physical Exam Narrative Physical Examination: General: Awake, alert, oriented to self, place, month and president however gives wrong year, remains cooperative, laying in the ED bed, fatigued appearing, no acute distress. Skin: Normal color, normal turgor, no icterus, no cyanosis except occasional staged ecchymoses. HEENT: AT/NC, EOMI, PERRLA, dry MM, no carotid bruits or JVD noted. Lungs: Mildly diminished, greater bases, poor effort, no rales, ronchi or wheezing. Heart: Regular rate and rhythm; no gallop, rub audible. Abdomen: Soft, NTTP, ND, mildly hyperactive BS, no HSM. Extremities: No cyanosis, no clubbing, pedal to mid [place] 2-3+ pitting edema. Neurological: Patient awake, alert, oriented as noted, cognitive function not improving but not baseline intact; pupils equally reactive to light and accommodation, cranial nerves grossly normal, moving all 4 extremities, no focal deficits, strength moderately to severely globally decreased. Psychiatric: Affect appears flat, fatigued, no acute evidence of depressive or anxiety feelings. Results Lab / Micro Data Result Diagrams: 06/26/22 19:15 06/26/22 19:15 Labs: Laboratory Results - last 24 hr 06/26/22 19:15: WBC 8.2, RBC 4.02 L, Hgb 12.7 L, Hct 39.8 L, MCV 99.0 H, MCH 31.6, MCHC 31.9 L, RDW Std Deviation 58.8 H, RDW Coeff of Rain 16.0 H, Plt Count 84 L, MPV 11.1, Immature Gran % (Auto) 1.800 H, Neut % (Auto) 77.4 H, Lymph % (Auto) 18.0 L, [place] % (Auto) 2.3, Eos % (Auto) 0.1, Baso % (Auto) 0.4, Absolute Neuts (auto) 6.3, Absolute Lymphs (auto) 1.47, Nucleated RBC % 0, Differential Comment SCANNED 06/26/22 19:15: PT 16.3 H, INR 1.3, APTT 42.5 H 06/26/22 19:15: Sodium 143, Potassium 4.4, Chloride 112 H, Carbon Dioxide 23.0, Anion Gap 8, BUN 48 H, Creatinine 2.17 H, Estim Creat Clear Calc 28.64, Est GFR (MDRD) Af Amer 37 L, Est GFR (MDRD) Non-Af 31 L, BUN/Creatinine Ratio 22.1 H, Glucose 103, Calcium 7.8 L, Total Bilirubin 0.80, AST 54 H, ALT 28, Alkaline Phosphatase 328 H, Total Protein 6.6, Albumin 2.2 L, Globulin 4.4 H, Albumin/Globulin Ratio 0.5 L 06/26/22 19:15: Lactic Acid 1.8 06/26/22 19:15: Urine Color Yellow, Urine Clarity Cloudy, Urine pH 5.0, Ur Specific [place] 1.015, Urine Protein 500 H, Urine Glucose (UA) Normal, Urine Ketones Negative, Urine Occult Blood 250 H, Urine Nitrite Negative, Urine Bilirubin Negative, Urine Urobilinogen Normal, Ur Leukocyte Esterase 25 H, Urine RBC 25-50 SEEN, Urine WBC 0-5 SEEN, Ur Squamous Epith Cells 0-5 SEEN, Amorphous Sediment 1+ URATE, Urine Bacteria RARE, Urine Mucus 0 SEEN 06/26/22 20:18: Troponin I High Sens 37 Micro: Microbiology 06/26/22 19:15 Nasal Secretion SARS-CoV-2 & FLU Antigen (Rapid) - Final Radiology Impression Chest X-Ray 06/26/22 19:30 IMPRESSION: No acute findings in the chest. 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 #1. Acute Encephalopathy secondary to Suspected Acute Viral Syndrome: Will admit to the PCU, maintain on COVID precautions pending COVID PCR and full respiratory viral panel, plan continued hydration with repeat CXR in AM, will maintain on oxygen with wean as tolerated to room air, PRN albuterol, HOB, IS parameters w/ pending sputum cultures if onset productive sputum, Bld Cx and UCx pending. Once further results are available will continue to narrow treatment plan. #2. Acute kidney injury on CKD stage III unclear subtype: Secondary to acute infectious presentation. Admission BUN/Cr 48/2.17, prior baseline creatinine noted to be primarily 1.0-1.3. Will judiciously hydrate, hold nephrotoxic medications and repeat chemistry in AM. If no improvement would plan FeNa and renal ultrasound assessment. Patient does admittedly have significant lower extremity edema thus will place Maximino wraps and initially had been administered IV Lasix per ED however this was an error and given dehydrated appearance still decision to proceed with judicious hydration. ED following administration and air of IV Lasix did obtain BNP which is noted be 555.2 and again chest x-ray with no overt overload. #3. Chronic thrombocytopenia: Admission platelets 84, baseline prior 120-140 although has been intermittently normal range in the past, likely decrease secondary to acute infectious presentation as noted, continue to trend, judicious use of chemoprophylaxis. #4. Chronic anemia, macrocytic: Admission hemoglobin 12.7, prior baseline ranging from primarily 9-11, will continue to trend. #5. Valvular heart disease: Status post TAVR, 05/31/2022 echocardiogram with normal LV systolic function, EF 65%, mild enlarged LA, mild mitral valve stenosis, mild to moderate MVI, moderate TVI, stable appearing bioprosthetic AV apparatus, mild TVI, trivial pericardial effusion, RVSP 26 mmHg, stage II diastolic dysfunction. #6. Abdominal aortic aneurysm: Noted history without rupture, 03/21/2019 last noted imaging with evidence of focal saccular infrarenal abdominal aortic aneurysm with transverse dimension 3.4 cm, encourage continued outpatient follow-up and imaging #7. CAD: Status post PCI, continue aspirin, not on statin therapy nor beta-josselyn/MAXIMINO inhibitor/ARB. #8. 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 Hypertension: Temporarily holding Lasix given concern for DELGADO, judiciously hydrate draining with resumption once appropriate, as needed hydralazine in interim. #10. Hyperlipidemia: Not on statin therapy, defer to outpatient. #11. GERD: We will maintain on PPI. #12. SHALOM: CPAP nightly. #13. BPH: We will continue patient home Flomax regimen. #14. DVT prophylaxis: SCDs, heparin. #15. CODE status: Patient GEOVANY is his and living will is in place. Discussed CODE status at length including difference between FULL code, DNR-CCA and DNR-CC status. Following discussions about the differences in these status, requested Full Code status. Advanced Care Planning Face to Face Time: 16 minutes. Charges/Coding Visit Charges Inpatient E&M: 71126 Init Hosp L3 Procedures Hospitalists Procedures: 85865 Advncd Care Plan 30 Min
[2022-06-26 21:25] LABS: BNP,B-Type NATRIURETIC PEPTIDE 555.2 pg/mL (0-100)
[2022-06-26 21:32] VITALS: BP 109/74; PULSE 92; RESP 31; TEMP 37.4; O2SAT 95
[2022-06-26 21:56] VITALS: BMI 21.1
[2022-06-26 22:12] VITALS: BP 98/62; PULSE 82; RESP 20; TEMP 37.6; O2SAT 96
[2022-06-26 23:02] VITALS: BP 98/62; PULSE 82; RESP 20; TEMP 37.6; O2SAT 96
[2022-06-26] MEDS: 0.9% Normal Saline 1,000 ML 100 ML IV (23:59)
[2022-06-27] VITALS (7 sets, daily range): BP systolic 92–106; BP diastolic 59–75; PULSE 63–80; RESP 16–20; TEMP 36.8–37.6; O2SAT 95–99
--- NOTE | 2022-06-27 03:38 | CPS ---
Patient stated that he has a CPAP machine at home, however does not use it because he couldn't get acclimated to it, and does not wish to wear one while he's here.
[2022-06-27 05:37] LABS: Absolute Lymphocyte Count 0.78 X10^3/uL (0.83-4.51); Absolute Neutrophil Count 3.9 X10^3/uL (2.0-7.7); Basophil# 0.02 X10^3/uL; Basophil% 0.4 % (0-1); Hematocrit 26.8 % (40-54); Hemoglobin 8.5 g/dL (13.0-16.5); Lymphocyte # 0.78 X10^3/ul (0.83-4.51); Lymphocyte % 15.7 % (19-41); Mean Corp Hgb Conc 31.7 g/dL (32-36); Mean Corpuscular Hgb 31.8 pg (27.0-32.0); Mean Corpuscular Volume 100.4 fL (80-94); Mean Platelet Vol. 11.6 fl (6.2-12.0); NRBC Flagged by Analyzer 0 % (0-5); Neutrophil # 3.88 X10^3/uL (2.7-7.7); Neutrophil % 78.3 % (47-70); POSITIVE COUNT YES; Platelet Count 64 K/mm3 (150-450); RBC Distribution Width SD 58.7 fl (35.1-43.9); Red Blood Count 2.67 M/mm3 (4.6-6.2)
[2022-06-27 06:14] LABS: ALB/GLOB Ratio 0.5 RATIO (0.9-2.4); AST(SGOT) 31 U/L (15-37); Alanine Aminotransfer ALT/SGPT 18 U/L (16-61); Albumin, Serum 1.4 g/dL (3.2-5.0); Alkaline Phosphatase 199 U/L (45-117); Anion Gap 8 (5-15); BUN 48 mg/dL (7-18); BUN/Creat Ratio 23.8 RATIO (10-20); Calcium,Total 7.2 mg/dL (8.5-10.1); Chloride 115 mmol/L (98-107); Creatinine, Serum 2.02 mg/dL (0.70-1.30); EST Glomerular Filtration Rate 34 mL/min (>60); Est Glom Filt Rate - Afr Amer 41 mL/min (>60); Estimated Creatinine Clearance 27.92 ml/min; Glucose 90 mg/dL (74-106); Potassium 3.7 mmol/L (3.5-5.1); Protein, Total 4.4 g/dL (6.4-8.2); Sodium Level 143 mmol/L (136-145)
--- NOTE | 2022-06-27 06:57 | PN.HOSP_ITS ---
Subjective Subjective DOS: 06/27/2022 CC: Still some leg swelling Reports he is feeling a little better and has some decrease swelling in his legs. Has not eaten well for 3 days but feels hungry. No nausea or vomiting, has been having bowel movements, reports urinating well. No chest pain or shortness of breath. Did report that he had some recent falls and has some left-sided chest wall pain only when he is moving around from that which is very slowly improving. Denies other complaints at this time Objective Data Objective Data Vital Signs: Vital Signs Temp Pulse Resp BP Pulse Ox O2 Del Method 98.6 F 63 20 H 92/59 L 95 Room Air 06/27/22 05:02 06/27/22 05:02 06/27/22 05:02 06/27/22 05:02 06/27/22 05:02 06/27/22 05:02 Oxygen Delivery Method Room Air Weight: 72.5 kg Body Mass Index (BMI) 21.1 Intake & Output: Intake and Output for Last 24 Hours 06/25/22 06/26/22 06/27/22 23:59 23:59 23:59 Intake Total 1000 / 1000 Output Total 250 / 250 Balance 1000 / 750 -250 / -250 Lab / Micro Data Result Diagrams: 06/27/22 03:56 06/27/22 03:56 Labs: Laboratory Results - last 24 hr 06/26/22 19:14: B-Natriuretic Peptide 555.2 H 06/26/22 19:15: WBC 8.2, RBC 4.02 L, Hgb 12.7 L, Hct 39.8 L, MCV 99.0 H, MCH 31.6, MCHC 31.9 L, RDW Std Deviation 58.8 H, RDW Coeff of Rain 16.0 H, Plt Count 84 L, MPV 11.1, Immature Gran % (Auto) 1.800 H, Neut % (Auto) 77.4 H, Lymph % (Auto) 18.0 L, [place] % (Auto) 2.3, Eos % (Auto) 0.1, Baso % (Auto) 0.4, Absolute Neuts (auto) 6.3, Absolute Lymphs (auto) 1.47, Nucleated RBC % 0, Differential Comment SCANNED 06/26/22 19:15: PT 16.3 H, INR 1.3, APTT 42.5 H 06/26/22 19:15: Sodium 143, Potassium 4.4, Chloride 112 H, Carbon Dioxide 23.0, Anion Gap 8, BUN 48 H, Creatinine 2.17 H, Estim Creat Clear Calc 28.64, Est GFR (MDRD) Af Amer 37 L, Est GFR (MDRD) Non-Af 31 L, BUN/Creatinine Ratio 22.1 H, Glucose 103, Calcium 7.8 L, Total Bilirubin 0.80, AST 54 H, ALT 28, Alkaline Phosphatase 328 H, Total Protein 6.6, Albumin 2.2 L, Globulin 4.4 H, Albumin/Globulin Ratio 0.5 L 06/26/22 19:15: Lactic Acid 1.8 06/26/22 19:15: Urine Color Yellow, Urine Clarity Cloudy, Urine pH 5.0, Ur Speci fic [place] 1.015, Urine Protein 500 H, Urine Glucose (UA) Normal, Urine Ketones Negative, Urine Occult Blood 250 H, Urine Nitrite Negative, Urine Bilirubin Negative, Urine Urobilinogen Normal, Ur Leukocyte Esterase 25 H, Urine RBC 25-50 SEEN, Urine WBC 0-5 SEEN, Ur Squamous Epith Cells 0-5 SEEN, Amorphous Sediment 1+ URATE, Urine Bacteria RARE, Urine Mucus 0 SEEN 06/26/22 19:15: Troponin I High Sens 37 06/26/22 19:15: Phosphorus 3.0, Magnesium 2.0 06/26/22 : COVID-19 ([facility]) Not Detected 06/27/22 03:56: WBC 5.0, RBC 2.67 L, Hgb 8.5 L, Hct 26.8 L, MCV 100.4 H, MCH 31.8, MCHC 31.7 L, RDW Std Deviation 58.7 H, RDW Coeff of Rain 16.0 H, Plt Count 64 L, MPV 11.6, Immature Gran % (Auto) 1.600 H, Neut % (Auto) 78.3 H, Lymph % (Auto) 15.7 L, [place] % (Auto) 4.0, Eos % (Auto) 0.0, Baso % (Auto) 0.4, Absolute Neuts (auto) 3.9, Absolute Lymphs (auto) 0.78 L, Nucleated RBC % 0 06/27/22 03:56: Sodium 143, Potassium 3.7, Chloride 115 H, Carbon Dioxide 20.0 L , Anion Gap 8, BUN 48 H, Creatinine 2.02 H, Estim Creat Clear Calc 27.92, Est GFR (MDRD) Af Amer 41 L, Est GFR (MDRD) Non-Af 34 L, BUN/Creatinine Ratio 23.8 H , Glucose 90, Calcium 7.2 L, Total Bilirubin 0.70, AST 31, ALT 18, Alkaline Phosphatase 199 H, Total Protein 4.4 L, Albumin 1.4 L, Globulin 3.0, Albumin/Globulin Ratio 0.5 L Micro: Microbiology 06/26/22 Unknown Mucosa - Nasopharyngeal Respiratory Panel (PCR) - Final 06/26/22 19:15 Nasal Secretion SARS-CoV-2 & FLU Antigen (Rapid) - Final Radiography Diagnostic Testing: Radiology Impression Chest X-Ray 06/26/22 19:30 IMPRESSION: No acute findings in the chest. Electronically Signed: Oswald Jasso MD at 19:58 EST , Brain CT 06/26/22 19:44 IMPRESSION: 1. No acute intracranial abnormality. There has been no change from reference examination. 2. Stable underlying senescent change with small vessel ischemia. Electronically Signed: Oswald Jasso MD at 20:48 EST , Physical Exam Const alert and no apparent distress Constitutional Narrative: Oriented HEENT normocephalic and head/scalp atraumatic Eyes Eyes Narrative: EOM grossly intact, anicteric Neck supple Resp normal respiratory effort and clear to auscultation bilaterally Cardio regular rate and regular rhythm GI soft to palpation, non-tender and non-distended Extremity Extremity Narrative: 1?2+ bilateral lower extremity pitting edema, symmetrical Neuro moves all extremities Neuro Narrative: No overt focal deficits appreciated Psych Psych Narrative: Cooperative Assessment & Plan Assessment/Plan (1) Fever, unknown origin: (2) Acute kidney injury: PLAN: Plan 86-year-old male with a past medical history of GERD, CKD stage III, CAD status post PCI, valvular heart disease status post TAVR, chronic thrombocytopenia presented 06/26 with fever, confusion, myalgias and chills. ED revealed temp 101.8, respiratory rate 22 and 91% on room air, troponin 37, chest x-ray no acute cardiopulmonary findings. #Acute encephalopathy secondary to suspected acute viral syndrome Was febrile on admission, lowest O2 sat 91% Flu and COVID-negative Chest x-ray with no acute cardiopulmonary findings CT head on admission with no acute abnormalities Awaiting blood culture, urine culture, sputum culture ordered if productive c ough UA unremarkable Alert and oriented this morning Was not given antibiotics due to no source of infection but has not been febrile and cultures no growth to date PT/OT consult #Chronic macrocytic anemia Hemoglobin 12.7 on admission, today 8.5 No obvious source of bleeding, given significant dehydration on admission and variable baseline suspect this is primarily delusional especially given all cell lines decreased Checking B12 and folate We will also obtain fecal occult and iron panel #DELGADO on CKD III unclear subtype Secondary to acute illness Creatinine 2.17 with previous baseline 1?1 0.3 Hydrating, nephrotoxic medications held Slowly improving with hydration #Valvular heart disease status post TAVR Most recent echo 05/31/2022 with normal LV systolic function, EF 65% Mild enlarged left atrium, mild mitral valve stenosis, mild to moderate MVI, moderate DVI, stable appearing bioprosthetic AV apparatus, trivial pericardial effusion, RVSP 26, stage II diastolic dysfunction #Heart failure with preserved ejection fraction, chronic Echo 05/31 with stage II diastolic dysfunction Given DELGADO and appearance of dehydration Home Lasix have been held BNP 555 on admission, not appear overloaded. Unclear baseline given no recent measures #Chronic thrombocytopenia Admission platelets 84 with prior baseline 120?140 but has been intermittently normal in the past Likely decrease secondary to acute presentation #Coronary artery disease status post PCI On aspirin at home, no statin on home med list and does not appear to be on beta-josselyn, REGAN or ARB #GERD Omeprazole at home, Protonix inpatient #Hypertension Holding Lasix temporarily given DELGADO Holding home tamsulosin given soft BP #History of esophageal cancer status postsurgical intervention partial gastrectomy Given history of partial gastrectomy with current altered mental status will obtain B12 #Abdominal aortic aneurysm: Noted history without rupture, 03/21/2019 last noted imaging with evidence of focal saccular infrarenal abdominal aortic aneurysm with transverse dimension 3.4 cm, encourage continued outpatient follow-up and imaging #SHALOM on cpap #BPH Holding home Flomax given soft BP #DVT ppx: SCDs, heparin Elvira Torres MD Charges/Coding Visit Charges Inpatient E&M: 25445 Subs Hosp L2
[2022-06-27] MEDS: Aspirin E.C. 81 MG Tablet PO (07:47)
[2022-06-27 08:39] LABS: Ferritin 500 ng/mL (26-388); Iron 14 ug/dL (65-175); Iron Binding Capacity,Total 112 ug/dL (250-450)
[2022-06-27 08:55] LABS: Vitamin B12 144 pg/mL (211-911)
[2022-06-27] MEDS: Pantoprazole Sodium 40 MG Tablet PO (09:09)
[2022-06-27] MEDS: Menthol/Lanolin/Calamine/Znox 113 GM Tube 1 APPLIC TOPICAL ×3 (09:09→23:14)
[2022-06-27] MEDS: Heparin Injection (Vial) 5,000 UNIT/ML VIAL 5000 UNIT SC ×2 (09:09→23:13)
[2022-06-27] MEDS: Ondansetron 4 MG/2 ML Vial IV (09:51)
[2022-06-27] MEDS: 0.9% Saline Lock 10 ML Syringe IV (09:51)
--- NOTE | 2022-06-27 11:00 | CASEMGMT ---
RN NOELLE Face to Face with patient for initial transition planning/care coordination assessment. RN CM introduced self and role at [facility]. Patient sitting in chair, alert and oriented. Patient willing to participate in assessment and is able to answer all questions appropriately. Care providers, pharmacy, and demographics verified. Patient wishes to discharge home, will monitor for HHC pending progress with therapy. Patient states he has no further needs or concerns at this time. CM to follow for discharge planning needs that may arise. PCP: Asif Specialists: Luisa mender [employer] [facility]: [facility] Insurance: [employer] Prescription Benefit: yes Living Will/HPOA: yes, Marimar Redd LNOK: , daughter Living Arrangements: Patient lives with in a single story home with 1 step to enter. Patient states he is independent at home. Patient states they recently had kittens and working on cleaning up the house. SW updated Transportation: self, daughter, son DME/HHC: Patient states he has shower chair, raised toilet, and grab bars at home. Patient my benefit from walker at discharge. Will monitor for HHC vs outpatient therapy pending progress. Disposition Plan: Patient to discharge home with family support and follow-up plans. Will monitor progress with therapy for recommendations. Adriane NIXON, RN, CM
--- NOTE | 2022-06-27 13:06 | CASEMGMT ---
Social Work Per RN NOELLE Winston, pt;s D/c plan is home. This SW in to speak to pt regarding concerns of family noted in DP consult from admission. Introduced self and role at the hospital. Pt agreeable to talking. SW inquired about home life and pt reports knowing there are concerns with his home and the state of how he lives. Pt reported upon discharge the issues with the animals in the home will be taken care of. Pt stated I indulged my to have cats and they've messed in the house and she hasn't been taking care of that lately. Pt reports he will be finding good homes for the animals and plans to work on selling the home to downsize and find housing that is more suitable to senior's abilities to care for the home. Pt reports has family support with some children and can rely on the children to assist. Pt appeared agreeable to considering senior housing options but stated wanted to discuss with family first. Pt was alert and oriented times three with acknowledgement of his concerning living conditions. Pt appeared willing and prepared to address the concerns of his family as well, as pt has plan that can begin to be implemented upon discharge from hospital. Pt declined resources for senior housing at this time. SW encouraged pt to reach out for help with any other needs or concerns that may arise. SEBAS Infante
--- NOTE | 2022-06-27 13:32 | CASEMGMT ---
Addendum entered by Kalyn Warren 06/27/22 14:34: Received vm from pt dtr Shelli who requests returned tc. RJ DRAKE in to pt room to get permission to speak with Shelli and she and pt in the room visiting. Shelli was requesting a medical update, made aware that this would need to come from the bedside nurse and notified nurse. Pt dtr is also requesting meals to be set up. Notified SW. Discussed the HHC and all were in agreement that this is a good idea. Pt and family to review and give top 3 choices. RJ DRAKE to check back. Original Note: RJ DRAKE in to pt room, pt sitting up in chair, discussed HHC therapy. Pt states his is coming in later today and he will discuss with her. Patient was provided a list of HHC providers including quality and resource use data and consistent with the patient?s preferred geographic region, medical needs, and insurance network were provided from the [facility] Guide. RJ DRAKE to check back on pt tomorrow for decision. Pt states he has a cane he uses in the home and prefers not to have a FWW. Pt denies further homegoing needs.
[2022-06-27] MEDS: Ensure Clear 120 ML Liquid PO ×3 (14:00→23:12)
--- NOTE | 2022-06-27 14:13 | CASEMGMT ---
Social Work? SW in to pt room to verify Advanced Directives. Pt confirmed has HCPOA/LW. Pt named spouse,?Marimar Redd, as agent. Pt made aware these documents are not on file and that pt can bring a copy in and drop off at Medical records in future if willing to do so. Pt voiced understanding.?? SEBAS Infante?
--- NOTE | 2022-06-27 14:37 | CHAPLAIN ---
Type of Pastoral Visit _x__ Initial Visit ___ Follow-up Visit ___ On-call Visit ___ General Patient Visit ___ Spiritual Assessment ___ Family Conference ___ Bereavement ___ Rapid Response ___ Code Blue ___ Other (describe below) Pastoral Care Referral From _x__ Patient ___ Family ___ Nurse ___ Physician ___ Surveillance Dual Rate Officer ___ [place] Field Worker ___ Other (describe below) Sacrament/Intervention ___ Active listening ___ Anointing ___ Moravian ___ Bereavement ___ Communion ___ Aminah exploration ___ ___ Life review ___ Prayer ___ Reconciliation ___ Sacrament of Sick _x__ Supportive presence ___ Wedding ___ Other (describe below) Pastoral Comments family members had just arrived to visit with patient; pt is alert and welcomes visit but states that he is feeling better and has no concerns at this time; offer of support to be ongoing as pt desires; pt verbalizes that he will ask for the sales expert home theater as needed
--- NOTE | 2022-06-27 14:47 | CASEMGMT ---
Social work SW notified by RN NOELLE that pt family visiting and requesting some information on senior meals. SW gathers resources for Mom's Meals and for Meals on Wheels. Provided to family. Also discussed [place] [employer] possibly has post-discharge meal plans and family would need to call insurance company to see if pt has this benefit. Family voiced understanding. SEBAS Infante
[2022-06-27] MEDS: Iron Polysaccharide Complex 150 MG CAPSULE PO (15:39)
[2022-06-28] VITALS (10 sets, daily range): BP systolic 84–136; BP diastolic 64–87; PULSE 66–77; RESP 16–18; TEMP 36.4–37.1; O2SAT 94–96
[2022-06-28 05:06] LABS: Absolute Neutrophil Count 2.6 X10^3/uL (2.0-7.7); Basophil# 0.02 X10^3/uL; Basophil% 0.5 % (0-1); Eosinophil# 0.02 X10^3/uL; Eosinophils% 0.5 % (0-5); Hematocrit 29.1 % (40-54); Hemoglobin 9.2 g/dL (13.0-16.5); Lymphocyte % 30.8 % (19-41); Mean Corp Hgb Conc 31.6 g/dL (32-36); Mean Corpuscular Hgb 31.4 pg (27.0-32.0); Mean Corpuscular Volume 99.3 fL (80-94); Mean Platelet Vol. 11.8 fl (6.2-12.0); Monocyte# 0.23 X10^3/uL; Monocyte% 5.5 % (0-10); NRBC Flagged by Analyzer 0 % (0-5); Neutrophil # 2.55 X10^3/uL (2.7-7.7); Neutrophil % 60.3 % (47-70); POSITIVE COUNT YES; Platelet Count 68 K/mm3 (150-450); RBC Distribution Width CV 16.1 % (11.6-14.6); Red Blood Count 2.93 M/mm3 (4.6-6.2); White Blood Count 4.2 K/mm3 (4.4-11.0)
[2022-06-28 05:39] LABS: ALB/GLOB Ratio 0.4 RATIO (0.9-2.4); AST(SGOT) 34 U/L (15-37); Alanine Aminotransfer ALT/SGPT 20 U/L (16-61); Albumin, Serum 1.4 g/dL (3.2-5.0); Alkaline Phosphatase 175 U/L (45-117); Anion Gap 6 (5-15); BUN 55 mg/dL (7-18); BUN/Creat Ratio 23.8 RATIO (10-20); Calcium,Total 7.3 mg/dL (8.5-10.1); Chloride 116 mmol/L (98-107); Creatinine, Serum 2.31 mg/dL (0.70-1.30); EST Glomerular Filtration Rate 29 mL/min (>60); Est Glom Filt Rate - Afr Amer 35 mL/min (>60); Estimated Creatinine Clearance 24.41 ml/min; Globulin 3.2 g/dL (2.2-4.2); Glucose 113 mg/dL (74-106); Protein, Total 4.6 g/dL (6.4-8.2); Sodium Level 143 mmol/L (136-145)
--- NOTE | 2022-06-28 07:52 | US_ITS ---
STUDY: RENAL ULTRASOUND - COMPLETE REASON FOR EXAM: Male, 86 years old. Worsening kidney function TECHNIQUE: Ultrasound evaluation of the kidneys was performed with real-time and static jalloh-scale imaging. COMPARISON: Comparison is made with prior study 03/20/2019. FINDINGS: RIGHT KIDNEY: Normal location of the right kidney, which is normal in size. The right kidney measures 9.6 cm x 5.5 cm x 5.1 cm. There is a normal cortex of the right kidney. The renal cortex measures 1.2 cm. Multiple cysts are seen. The largest cyst measures 3.2 cm x 3.6 x 3.2 cm. There are no right renal calculi. There is no right hydronephrosis. DISTAL RIGHT URETER: There is non-visualization of the distal right ureter. There is no demonstrated right ureterovesical junction calculus. There is a visualized right ureteral jet. LEFT KIDNEY: Normal location of the left kidney, which is normal in size. The left kidney measures 11.7 cm x 5 cm x 5.2 cm. There is a normal cortex of the left kidney. The renal cortex measures 1.1 cm. Multiple cysts are seen. The largest measures 3.3 cm x 2.6 x 3.7 cm. There are 2, 3 mm x 4 mm x 3 mm nonobstructive intrarenal calculi. There are no left renal calculi. There is no left hydronephrosis. DISTAL LEFT URETER: There is non-visualization of the distal left ureter. There is no demonstrated left ureterovesical junction calculus. There is a visualized left ureteral jet. BLADDER: The distended urinary bladder has a volume of 128 ml. There is a normal wall thickness of the distended urinary bladder. There is no demonstrated mass within the urinary bladder. There are no demonstrated bladder calculi. Incidental note is made of free fluid in the right upper and lower quadrants as well as in the left lower quadrant. US/Kidney and Bladder IMPRESSION: Bilateral renal cysts. Small nonobstructive left intrarenal calculi. Electronically Signed: John Villa MD at 14:36 EST ,
[2022-06-28 09:34] LABS: Urine Chloride 28 mmol/L (Not Establ.); Urine Sodium 32 mmol/L (Not Establ.)
[2022-06-28] MEDS: Ensure Clear 120 ML Liquid PO ×3 (09:54→21:23)
[2022-06-28] MEDS: Menthol/Lanolin/Calamine/Znox 113 GM Tube 1 APPLIC TOPICAL ×4 (09:54→21:23)
[2022-06-28] MEDS: Pantoprazole Sodium 40 MG Tablet PO (09:55)
[2022-06-28] MEDS: Heparin Injection (Vial) 5,000 UNIT/ML VIAL 5000 UNIT SC ×2 (09:55→21:23)
[2022-06-28] MEDS: Aspirin E.C. 81 MG Tablet PO (09:55)
[2022-06-28] MEDS: Cyanocobalamin 500 MCG Tablet 1000 MCG PO (09:55)
[2022-06-28] MEDS: Iron Polysaccharide Complex 150 MG CAPSULE PO (09:55)
--- NOTE | 2022-06-28 10:04 | PN.HOSP_ITS ---
Subjective Subjective DOS 06/28 CC: Bleeding around IV site Feeling better than he had been though his kidney function worsened. Eating f air, reports he is urinating well. No CP or SOB at this time. Objective Data Objective Data Vital Signs: Vital Signs Temp Pulse Resp BP Pulse Ox O2 Del Method 98.2 F 66 16 84/68 L 95 Room Air 06/28/22 08:02 06/28/22 08:02 06/28/22 08:02 06/28/22 08:02 06/28/22 08:02 06/28/22 08:02 Oxygen Delivery Method Room Air Weight: 72.5 kg Body Mass Index (BMI) 21.1 Intake & Output: Intake and Output for Last 24 Hours 06/26/22 06/27/22 06/28/22 23:59 23:59 23:59 Intake Total 1000 / 1000 1000 / 1000 Output Total 400 / 400 200 / 200 Balance 1000 / 750 600 / 600 -200 / -200 Medical Nutrition Assessment Dietitian: Malnutrition Criteria Met Start: 06/27/22 10:36 Freq: Status: Active Protocol: Document 06/27/22 10:36 GALE (Rec: 06/27/22 10:36 [facility] [id number]) Nutrition Malnutrition Evidence of Malnutrition Exists Yes Malnutrition (severe): Acute Illness/Injury Evidenced By Suboptimal Energy Intake ( Severe),Weight Loss (Severe), Physical Changes (Mild) Clinical Problem Acute Disease or Injury Related Malnutrition Etiology related to acute illness and pt inability to consume adequate yana/pro to meet est nutritional needs Signs/Symptoms as evidenced by 4.9% wt loss x 1 month, po intake meeting < 50% of estimated nutrition needs x 3 weeks and fat/muscle loss in face and upper body. Status Active Problem Recommendation Dietitian Recommendations/Changes Will liberalize diet to Regular No Added Salt d/t signs/symptoms of malnutrition . Will change oral nutrition supplement from ensure plus high protein to ensure clear per pt request Will provide meats at meals cut into bite size pieces per pt request - ok for turkey sandwich to not be cut into bite size pieces. Lab / Micro Data Result Diagrams: 06/28/22 03:51 06/28/22 03:51 Labs: Laboratory Results - last 24 hr 06/28/22 03:51: WBC 4.2 L, RBC 2.93 L, Hgb 9.2 L, Hct 29.1 L, MCV 99.3 H, MCH 31.4, MCHC 31.6 L, RDW Std Deviation 59.0 H, RDW Coeff of Rain 16.1 H, Plt Count 68 L, MPV 11.8, Immature Gran % (Auto) 2.400 H, Neut % (Auto) 60.3, Lymph % (Auto) 30.8, [place] % (Auto) 5.5, Eos % (Auto) 0.5, Baso % (Auto) 0.5, Absolute Neuts (auto) 2.6, Absolute Lymphs (auto) 1.30, Nucleated RBC % 0 06/28/22 03:51: Sodium 143, Potassium 4.0, Chloride 116 H, Carbon Dioxide 21.0, Anion Gap 6, BUN 55 H, Creatinine 2.31 H, Estim Creat Clear Calc 24.41, Est GFR (MDRD) Af Amer 35 L, Est GFR (MDRD) Non-Af 29 L, BUN/Creatinine Ratio 23.8 H, Gl ucose 113 H, Calcium 7.3 L, Total Bilirubin 0.50, AST 34, ALT 20, Alkaline Phosphatase 175 H, Total Protein 4.6 L, Albumin 1.4 L, Globulin 3.2, Albumin/Globulin Ratio 0.4 L 06/28/22 09:00: Ur Random Sodium 32, Urine Creatinine 92.20, Urine Potassium 2 6.0, Urine Chloride 28 Micro: Microbiology 06/26/22 19:15 Urine, Clean Catch Urine Culture - Final Mixed Gram Positive Organisms 06/26/22 Unknown Mucosa - Nasopharyngeal Respiratory Panel (PCR) - Final 06/26/22 19:15 Nasal Secretion SARS-CoV-2 & FLU Antigen (Rapid) - Final Physical Exam Const alert and no apparent distress Constitutional Narrative: Oriented, bleeding around L IV site HEENT normocephalic and head/scalp atraumatic Eyes Eyes Narrative: EOM grossly intact, anicteric Neck supple Resp normal respiratory effort and clear to auscultation bilaterally Cardio regular rate and regular rhythm GI soft to palpation, non-tender and non-distended Extremity Extremity Narrative: No edema appreciated Neuro moves all extremities Neuro Narrative: No overt focal deficits appreciated Psych Psych Narrative: Cooperative Assessment & Plan Assessment/Plan (1) Fever, unknown origin: (2) Acute kidney injury: PLAN: Plan 86-year-old male with a past medical history of GERD, CKD stage III, CAD status post PCI, valvular heart disease status post TAVR, chronic thrombocytopenia presented 06/26 with fever, confusion, myalgias and chills. ED revealed temp 101.8, respiratory rate 22 and 91% on room air, troponin 37, chest x-ray no acute cardiopulmonary findings. #DELGADO on CKD III unclear subtype Secondary to acute illness Creatinine 2.17 with previous baseline 1?1 0.3 Hydrating, nephrotoxic medications held Slowly improving with hydration 06/28: Worsened today, unclear etiology. Will give further fluids, urine studies, kidney ultrasound, monitor BMP #Acute metabolic encephalopathy-improved Was febrile on admission, lowest O2 sat 91% Flu and COVID-negative Chest x-ray with no acute cardiopulmonary findings CT head on admission with no acute abnormalities Awaiting blood culture, urine culture, sputum culture ordered if productive cough UA unremarkable Alert and oriented this morning Was not given antibiotics due to no source of infection but has not been febrile and cultures no growth to date PT/OT consult 06/28: Appears resolved, query if there is a component of dehydration. Beginning to do better today #Chronic macrocytic anemia Hemoglobin 12.7 on admission, today 8.5 No obvious source of bleeding, given significant dehydration on admission and v ariable baseline suspect this is primarily delusional especially given all cell lines decreased Checking B12 and folate We will also obtain iron panel 06/28: B12 low, iron panel consistent with anemia of chronic disease, did start on iron and B12 supplementation, stable at this time #Valvular heart disease status post TAVR Most recent echo 05/31/2022 with normal LV systolic function, EF 65% Mild enlarged left atrium, mild mitral valve stenosis, mild to moderate MVI, moderate DVI, stable appearing bioprosthetic AV apparatus, trivial pericardial effusion, RVSP 26, stage II diastolic dysfunction #Heart failure with preserved ejection fraction, chronic Echo 05/31 with stage II diastolic dysfunction Given DELGADO and appearance of dehydration Home Lasix have been held BNP 555 on admission, not appear overloaded. Unclear baseline given no recent measures #Chronic thrombocytopenia Admission platelets 84 with prior baseline 120?140 but has been intermittently normal in the past Likely decrease secondary to acute presentation #Coronary artery disease status post PCI On aspirin at home, no statin on home med list and does not appear to be on beta-josselyn, REGAN or ARB #GERD Omeprazole at home, Protonix inpatient #Hypertension Holding Lasix temporarily given DELGADO Holding home tamsulosin given soft BP #History of esophageal cancer status postsurgical intervention partial gastrectomy Given history of partial gastrectomy with current altered mental status will obtain B12 06/28: B12 low, replacement #Abdominal aortic aneurysm: Noted history without rupture, 03/21/2019 last noted imaging with evidence of focal saccular infrarenal abdominal aortic aneurysm with transverse dimension 3.4 cm, encourage continued outpatient follow-up and imaging #SHALOM on cpap #BPH Holding home Flomax given soft BP #DVT ppx: SCDs, heparin Elvira Torres MD Charges/Coding Visit Charges Inpatient E&M: 73456 Subs Hosp L2
--- NOTE | 2022-06-28 10:14 | CASEMGMT ---
RJ CM in to pt room to obtain pt C choices. He states he has not finalized this yet, as he is awaiting on input from his dtr Shelli. He gave permission to call Shelli to see what her choices were and to check back with him.
[2022-06-28] MEDS: Ondansetron 4 MG/2 ML Vial IV (17:49)
[2022-06-28] MEDS: 0.9% Saline Lock 10 ML Syringe IV (17:49)
[2022-06-28] MEDS: guaiFENesin 10 ML UDC (200MG/10ML) 20 ML PO (22:30)
[2022-06-29] VITALS (9 sets, daily range): BP systolic 97–130; BP diastolic 63–79; PULSE 53–86; RESP 14–18; TEMP 36.6–37.3; O2SAT 93–97
[2022-06-29] MEDS: MELATONIN 3 MG TABLET PO (00:15)
[2022-06-29] MEDS: 0.9% Saline Lock 10 ML Syringe IV (03:25)
[2022-06-29 06:57] LABS: Absolute Lymphocyte Count 1.49 X10^3/uL (0.83-4.51); Absolute Neutrophil Count 4.2 X10^3/uL (2.0-7.7); Basophil# 0.04 X10^3/uL; Basophil% 0.6 % (0-1); Eosinophil# 0.04 X10^3/uL; Eosinophils% 0.6 % (0-5); Hematocrit 33.2 % (40-54); Hemoglobin 10.6 g/dL (13.0-16.5); Lymphocyte # 1.49 X10^3/ul (0.83-4.51); Mean Corp Hgb Conc 31.9 g/dL (32-36); Mean Corpuscular Hgb 31.5 pg (27.0-32.0); Mean Corpuscular Volume 98.8 fL (80-94); Mean Platelet Vol. 10.8 fl (6.2-12.0); Monocyte% 4.8 % (0-10); NRBC Flagged by Analyzer 0 % (0-5); Neutrophil # 4.23 X10^3/uL (2.7-7.7); Neutrophil % 68.4 % (47-70); POSITIVE COUNT YES; Platelet Count 76 K/mm3 (150-450); RBC Distribution Width CV 16.1 % (11.6-14.6); RBC Distribution Width SD 58.4 fl (35.1-43.9); Red Blood Count 3.36 M/mm3 (4.6-6.2); White Blood Count 6.2 K/mm3 (4.4-11.0)
[2022-06-29 07:22] LABS: ALB/GLOB Ratio 0.4 RATIO (0.9-2.4); AST(SGOT) 35 U/L (15-37); Alanine Aminotransfer ALT/SGPT 20 U/L (16-61); Albumin, Serum 1.5 g/dL (3.2-5.0); Alkaline Phosphatase 189 U/L (45-117); Anion Gap 7 (5-15); BUN 59 mg/dL (7-18); BUN/Creat Ratio 24.8 RATIO (10-20); Calcium,Total 7.6 mg/dL (8.5-10.1); Chloride 117 mmol/L (98-107); Creatinine, Serum 2.38 mg/dL (0.70-1.30); EST Glomerular Filtration Rate 28 mL/min (>60); Est Glom Filt Rate - Afr Amer 34 mL/min (>60); Estimated Creatinine Clearance 25.62 ml/min; Globulin 3.9 g/dL (2.2-4.2); Glucose 97 mg/dL (74-106); Potassium 4.2 mmol/L (3.5-5.1); Protein, Total 5.4 g/dL (6.4-8.2); Sodium Level 145 mmol/L (136-145)
--- NOTE | 2022-06-29 08:45 | PN.HOSP_ITS ---
Subjective Subjective Reports feeling well, no chest pain or shortness of breath, family yesterday, urinating well Objective Data Objective Data Vital Signs: Vital Signs Temp Pulse Resp BP Pulse Ox O2 Del Method 98.7 F 79 14 130/79 H 94 Room Air 06/29/22 04:29 06/29/22 04:29 06/29/22 04:29 06/29/22 04:29 06/29/22 04:29 06/29/22 07:16 Oxygen Delivery Method Room Air Weight: 78.4 kg Body Mass Index (BMI) 21.1 Intake & Output: Intake and Output for Last 24 Hours 06/27/22 06/28/22 06/29/22 23:59 23:59 23:59 Intake Total 1000 / 1000 1000 / 1000 Output Total 400 / 400 500 / 1100 600 / 600 Balance 600 / 600 500 / -100 -600 / -600 Medical Nutrition Assessment Dietitian: Malnutrition Criteria Met Start: 06/27/22 10:36 Freq: Status: Active Protocol: Document 06/27/22 10:36 GALE (Rec: 06/27/22 10:36 GALE [id number]) Nutrition Malnutrition Evidence of Malnutrition Exists Yes Malnutrition (severe): Acute Illness/Injury Evidenced By Suboptimal Energy Intake ( Severe),Weight Loss (Severe), Physical Changes (Mild) Clinical Problem Acute Disease or Injury Related Malnutrition Etiology related to acute illness and pt inability to consume adequate yana/pro to meet est nutritional needs Signs/Symptoms as evidenced by 4.9% wt loss x 1 month, po intake meeting < 50% of estimated nutrition needs x 3 weeks and fat/muscle loss in face and upper body. Status Active Problem Recommendation Dietitian Recommendations/Changes Will liberalize diet to Regular No Added Salt d/t signs/symptoms of malnutrition . Will change oral nutrition supplement from ensure plus high protein to ensure clear per pt request Will provide meats at meals cut into bite size pieces per pt request - ok for turkey sandwich to not be cut into bite size pieces. Lab / Micro Data Result Diagrams: 06/29/22 05:35 06/29/22 05:35 Labs: Laboratory Results - last 24 hr 06/28/22 09:00: Ur Random Sodium 32, Urine Creatinine 92.20, Urine Potassium 26.0, Urine Chloride 28 06/29/22 05:35: WBC 6.2, RBC 3.36 L, Hgb 10.6 L, Hct 33.2 L, MCV 98.8 H, MCH 31 .5, MCHC 31.9 L, RDW Std Deviation 58.4 H, RDW Coeff of Rain 16.1 H, Plt Count 76 L, MPV 10.8, Immature Gran % (Auto) 1.600 H, Neut % (Auto) 68.4, Lymph % (Auto) 24.0, [place] % (Auto) 4.8, Eos % (Auto) 0.6, Baso % (Auto) 0.6, Absolute Neuts (auto) 4.2, Absolute Lymphs (auto) 1.49, Nucleated RBC % 0 06/29/22 05:35: Sodium 145, Potassium 4.2, Chloride 117 H, Carbon Dioxide 21.0, Anion Gap 7, BUN 59 H, Creatinine 2.38 H, Estim Creat Clear Calc 25.62, Est GFR (MDRD) Af Amer 34 L, Est GFR (MDRD) Non-Af 28 L, BUN/Creatinine Ratio 24.8 H, Glucose 97, Calcium 7.6 L, Total Bilirubin 0.60, AST 35, ALT 20, Alkaline Phosphatase 189 H, Total Protein 5.4 L, Albumin 1.5 L, Globulin 3.9, Albumin/Globulin Ratio 0.4 L Micro: Microbiology 06/26/22 19:15 Urine, Clean Catch Urine Culture - Final Mixed Gram Positive Organisms 06/26/22 Unknown Mucosa - Nasopharyngeal Respiratory Panel (PCR) - Final 06/26/22 19:15 Nasal Secretion SARS-CoV-2 & FLU Antigen (Rapid) - Final Radiography Diagnostic Testing: Radiology Impression Renal Ultrasound 06/28/22 07:52 IMPRESSION: Bilateral renal cysts. Small nonobstructive left intrarenal calculi. Electronically Signed: John Villa MD at 14:36 EST , Physical Exam Const alert and no apparent distress Constitutional Narrative: Oriented, bleeding around L IV site HEENT normocephalic and head/scalp atraumatic Eyes Eyes Narrative: EOM grossly intact, anicteric Neck supple Resp normal respiratory effort and clear to auscultation bilaterally Cardio regular rate and regular rhythm GI soft to palpation, non-tender and non-distended Extremity Extremity Narrative: No edema appreciated Neuro moves all extremities Neuro Narrative: No overt focal deficits appreciated Psych Psych Narrative: Cooperative Assessment & Plan Assessment/Plan (1) Fever, unknown origin: (2) Acute kidney injury: PLAN: Plan 86-year-old male with a past medical history of GERD, CKD stage III, CAD status post PCI, valvular heart disease status post TAVR, chronic thrombocytopenia presented 06/26 with fever, confusion, myalgias and chills. ED revealed temp 101.8, respiratory rate 22 and 91% on room air, troponin 37, chest x-ray no acute cardiopulmonary findings. #DELGADO on CKD III unclear subtype Secondary to acute illness Creatinine 2.17 with previous baseline 1?1 0.3 Hydrating, nephrotoxic medications held Slowly improving with hydration 06/28: Worsened today, unclear etiology. Will give further fluids, urine barry dies, kidney ultrasound, monitor BMP 06/29: Did worsen again today, appeared to be prerenal, renal ultrasound with no hydronephrosis but does have some evidence of renal cysts, no obstructing stones. Will give more fluids, urine eosinophils, UA, urine osmolality. Given worsening and not improving concerned for worsening he is discharged, will monitor throughout the morning and reevaluate #Acute metabolic encephalopathy-improved Was febrile on admission, lowest O2 sat 91% Flu and COVID-negative Chest x-ray with no acute cardiopulmonary findings CT head on admission with no acute abnormalities Awaiting blood culture, urine culture, sputum culture ordered if productive cough UA unremarkable Alert and oriented this morning Was not given antibiotics due to no source of infection but has not been febrile and cultures no growth to date PT/OT consult 06/28: Appears resolved, query if there is a component of dehydration. Beginning to do better today 06/29 doing well #Chronic macrocytic anemia Hemoglobin 12.7 on admission, today 8.5 No obvious source of bleeding, given significant dehydration on admission and variable baseline suspect this is primarily delusional especially given all cell lines decreased Checking B12 and folate We will also obtain iron panel 06/28: B12 low, iron panel consistent with anemia of chronic disease, did start on iron and B12 supplementation, stable at this time #Valvular heart disease status post TAVR Most recent echo 05/31/2022 with normal LV systolic function, EF 65% Mild enlarged left atrium, mild mitral valve stenosis, mild to moderate MVI, moderate DVI, stable appearing bioprosthetic AV apparatus, trivial pericardial effusion, RVSP 26, stage II diastolic dysfunction #Heart failure with preserved ejection fraction, chronic Echo 05/31 with stage II diastolic dysfunction Given DELGADO and appearance of dehydration Home Lasix have been held BNP 555 on admission, not appear overloaded. Unclear baseline given no recent measures #Chronic thrombocytopenia Admission platelets 84 with prior baseline 120?140 but has been intermittently normal in the past Likely decrease secondary to acute presentation #Coronary artery disease status post PCI On aspirin at home, no statin on home med list and does not appear to be on beta-josselyn, REGAN or ARB #GERD Omeprazole at home, Protonix inpatient #Hypertension Holding Lasix temporarily given DELGADO Holding home tamsulosin given soft BP #History of esophageal cancer status postsurgical intervention partial gastrectomy Given history of partial gastrectomy with current altered mental status will obtain B12 06/28: B12 low, replacement #Abdominal aortic aneurysm: Noted history without rupture, 03/21/2019 last noted imaging with evidence of focal saccular infrarenal abdominal aortic aneurysm with transverse dimension 3.4 cm, encourage continued outpatient follow-up and imaging #SHALOM on cpap #BPH Holding home Flomax given soft BP #DVT ppx: SCDs, heparin Elvira Torres MD Charges/Coding Visit Charges Inpatient E&M: 38841 Subs Hosp L2
[2022-06-29] MEDS: Aspirin E.C. 81 MG Tablet PO (09:20)
[2022-06-29] MEDS: Iron Polysaccharide Complex 150 MG CAPSULE PO (09:20)
[2022-06-29] MEDS: Heparin Injection (Vial) 5,000 UNIT/ML VIAL 5000 UNIT SC ×2 (09:21→22:25)
[2022-06-29] MEDS: Menthol/Lanolin/Calamine/Znox 113 GM Tube 1 APPLIC TOPICAL ×4 (09:21→22:25)
[2022-06-29] MEDS: Cyanocobalamin 500 MCG Tablet 1000 MCG PO (09:21)
[2022-06-29] MEDS: Pantoprazole Sodium 40 MG Tablet PO (09:22)
[2022-06-29] MEDS: Ensure Clear 120 ML Liquid PO ×4 (09:37→22:45)
[2022-06-29] MEDS: Lactated Ringers 500 ML 999 ML IV (09:41)
--- NOTE | 2022-06-29 10:47 | CASEMGMT ---
Addendum entered by Kalyn Warren 06/29/22 14:21: RJ DRAKE into pt room, pt asked RN NOELLE to call dtr. TC to dtr, she states she will be coming into the hospital in about an hour. She will nadia two more choices for HHC on patient list. RJ DRAKE to check back. Addendum entered by Kalyn Warren 06/29/22 12:24: Received notification that [facility] cannot service pt. RJ DRAKE in to pt room for further choices. Pt states he will talk to his dtr when she comes in to visit today. Will await choices. Addendum entered by Kalyn Warren 06/29/22 12:12: Received notification from [facility] that they are unable to accept pt as they are at capacity. Referral sent to [facility] Original Note: RJ DRAKE in to pt room, pt sitting up in chair. Pt states that he has decided on HHC. List [facility] tray table [facility] and [facility] as second choice. Referral sent to [facility] via [facility] at this time.
[2022-06-29 11:52] LABS: Mucous, Urine 0 SEEN /hpf (<or=2+)
[2022-06-29 12:07] LABS: Color, Urine Yellow (Yellow); Glucose, Dipstick Normal (Normal); Ketone-Dipstick 5 mg/dl (Negative); Leukocyte Esterase-Dipstick 25 /ul (Negative); Nitrite-Dipstick Positive (Negative); Occult Blood-Urine 250 /ul (Negative); Protein-Dipstick 500 mg/dl (Negative); Urine Clarity Sl. Cloudy (Clear); Urine Urobilinogen 1 mg/dl (Normal)
[2022-06-29 12:08] LABS: Urine Bilirubin Dipstick 1 mg/dL (Negative)
[2022-06-29 12:16] LABS: Bacteria 2+ /hpf (None Seen); Red Blood Cells-Urine 25-50 SEEN /hpf (0-5); Squamous Epithelial Cells - UA 0-5 SEEN /hpf (0-5); White Blood Cells 0-5 SEEN /hpf (0-5)
[2022-06-29 12:51] LABS: Osmolality, Urine 384 mOsm/KG
[2022-06-29] MEDS: Lactated Ringers 1,000 ML 75 ML IV (15:02)
[2022-06-29] MEDS: Ceftriaxone 1 GM/50 ML BAG IV (15:50)
[2022-06-30] VITALS (8 sets, daily range): BP systolic 106–126; BP diastolic 63–73; PULSE 70–84; RESP 16–18; TEMP 36.5–37.3; O2SAT 94–98
[2022-06-30 06:41] LABS: Absolute Lymphocyte Count 1.51 X10^3/uL (0.83-4.51); Absolute Neutrophil Count 3.4 X10^3/uL (2.0-7.7); Basophil# 0.04 X10^3/uL; Basophil% 0.7 % (0-1); Eosinophil# 0.06 X10^3/uL; Eosinophils% 1.1 % (0-5); Hematocrit 30.5 % (40-54); Hemoglobin 9.9 g/dL (13.0-16.5); Lymphocyte # 1.51 X10^3/ul (0.83-4.51); Lymphocyte % 27.5 % (19-41); Mean Corp Hgb Conc 32.5 g/dL (32-36); Mean Corpuscular Hgb 32.6 pg (27.0-32.0); Mean Corpuscular Volume 100.3 fL (80-94); Mean Platelet Vol. 11.1 fl (6.2-12.0); Monocyte% 5.5 % (0-10); NRBC Flagged by Analyzer 0.4 % (0-5); Neutrophil # 3.42 X10^3/uL (2.7-7.7); Neutrophil % 62.3 % (47-70); POSITIVE COUNT YES; Platelet Count 88 K/mm3 (150-450); RBC Distribution Width CV 16.2 % (11.6-14.6); RBC Distribution Width SD 60.1 fl (35.1-43.9); Red Blood Count 3.04 M/mm3 (4.6-6.2); White Blood Count 5.5 K/mm3 (4.4-11.0)
[2022-06-30 07:11] LABS: Anion Gap 8 (5-15); BUN 66 mg/dL (7-18); BUN/Creat Ratio 27.3 RATIO (10-20); Calcium,Total 7.3 mg/dL (8.5-10.1); Chloride 115 mmol/L (98-107); Creatinine, Serum 2.42 mg/dL (0.70-1.30); EST Glomerular Filtration Rate 27 mL/min (>60); Est Glom Filt Rate - Afr Amer 33 mL/min (>60); Estimated Creatinine Clearance 24.52 ml/min; Glucose 90 mg/dL (74-106); Potassium 4.2 mmol/L (3.5-5.1); Sodium Level 141 mmol/L (136-145)
[2022-06-30] MEDS: 0.9% Normal Saline 1,000 ML 75 ML IV ×2 (08:08→21:01)
[2022-06-30] MEDS: 0.9% Saline Lock 10 ML Syringe IV (08:09)
[2022-06-30] MEDS: Ensure Clear 120 ML Liquid PO ×4 (09:05→20:59)
[2022-06-30] MEDS: Aspirin E.C. 81 MG Tablet PO (09:05)
[2022-06-30] MEDS: Menthol/Lanolin/Calamine/Znox 113 GM Tube 1 APPLIC TOPICAL ×2 (09:06→21:01)
[2022-06-30] MEDS: Pantoprazole Sodium 40 MG Tablet PO (09:06)
[2022-06-30] MEDS: Cyanocobalamin 500 MCG Tablet 1000 MCG PO (09:06)
[2022-06-30] MEDS: Iron Polysaccharide Complex 150 MG CAPSULE PO (09:06)
[2022-06-30] MEDS: Heparin Injection (Vial) 5,000 UNIT/ML VIAL 5000 UNIT SC ×2 (09:07→21:00)
[2022-06-30] MEDS: Ceftriaxone 1 GM/50 ML BAG IV (09:33)
--- NOTE | 2022-06-30 11:00 | PCM.CONS.R ---
Assessment & Plan Assessment/Plan (1) Acute kidney injury: (2) CKD (chronic kidney disease) stage 3, GFR 30-59 ml/min: (3) Generalized weakness: (4) Bilateral lower extremity edema: (5) HTN (hypertension): PLAN: Plan Patient was admitted to the hospital for further evaluation/work-up for fever of unknown origin, acute metabolic encephalopathy which has improved as well as acute kidney injury. We were consulted for acute kidney injury. 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 In reviewing past creatinine trends, possible baseline creatinine has been ranging around 1.0 to 1.3 mg/dL. Patient had lab work on May 26 and his creatinine was 1.31 mg/dL. Creatinine on admission to the hospital was 2.17 mg/dL. Creatinine on June 28 and again June 29 2.3 mg/dL and today his creatinine is at 2.42 mg/dL. Patient is nonoliguric. Renal ultrasound did not show any hydronephrosis. Patient did receive furosemide on admission but has not had any diuretics since then. Chest x-ray on admission did not show any acute findings, no consolidation, effusion or edema. He is currently on IV fluids. Recommend to continue with IV fluids as ordered for volume expansion and continue holding lasix. Blood pressures were also low in the emergency room and past few days. Blood pressures improved today. Patient is not on any antihypertensives at this time. Flomax is also on hold. Likely DELGADO pre-renal, multifactorial from recent poor oral intake with concurrent diuretic use as well as hypotension causing decreased effective renal perfusion. 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 Though patient does have some lower extremity edema overall volume status appears stable. Lung sounds are clear. Blood pressures yesterday low with SBP 90s-100s, however BPs have improved today. Renal ultrasound: no hydronephrosis, bilateral renal cysts, small nonobstructive left intrarenal calculi. We will obtain bladder scan post void to rule out obstructive uropathy contributing to acute kidney injury. Patient had echocardiogram on May 31, 2022: Normal LV size, left ventricular systolic function normal, estimated EF 65%, stage II diastolic dysfunction, stable appearing bioprosthetic aortic valve. He is on antibiotics, Rocephin, urine cx pending, blood cx so far no growth to date. Further orders forthcoming as hospitalization evolves, thank you for allowing us to participate in the care of Mr. Chacon. HPI Consult Data Date of Consult: 06/30/22 HPI Narrative HPI Narrative: SEEMA CHACON, is a 86 M with past medical history significant for hypertension, BPH, HLD, esophageal cancer status post surgical intervention with partial gastrectomy, coronary artery disease status post PCI, valvular heart disease status post TAVR, chronic anemia, GERD who was brought to the emergency room on 1113 with complaints of myalgias, also noted confusion with fever and chills. He was admitted for acute encephalopathy suspected to acute viral syndrome, fever and acute kidney injury. We were consulted for acute kidney injury. Patient reports he does not follow with nephrology. In reviewing past creatinine trends baseline creatinine ranging around 1 to 1.3 mg/dL as of 2013. On May 26, 2022 patient had lab work which showed creatinine of 1.31 mg/dL. On admission to the hospital, June 26 creatinine 2.17 mg/dL. Renal function improved the next day with a creatinine of 2.02 mg/dL. On 06/28 and 06/29 creatinine 2.3 mg/dL and today his creatinine is 2.42 mg/dL. Patient currently denies any nausea or vomiting. Reports has good appetite. Denies any diarrhea. Denies any hematuria or dysuria. Patient does state he had been taking furosemide per cardiology recommendations for recent lower extremity edema and reports dose had been increased from every other day to 40 mg daily. Patient reports he did not notice much improvement in his edema when at home but states swelling currently improved. Patient did receive one-time dose of Lasix 40 mg on 06/26. [facility] Medical History (Updated 06/30/22 @ 11:09 by Leonarda Mtz, TAMAR-Alek) Abdominal aortic aneurysm (AAA) Abdominal aortic aneurysm without rupture Atherosclerotic heart disease of [place] coronary artery without angina pectoris BPH (benign prostatic hyperplasia) CAD (coronary artery disease) Esophageal cancer Essential hypertension Gastric adenocarcinoma Gout History of left heart catheterization (LHC) (~06/26/19) HTN (hypertension) Hyperlipidemia Murmur, cardiac Non-rheumatic aortic stenosis Old myocardial infarction Presence of stent in coronary artery (~09/05/02) Sleep apnea Home Medications multivitamin with folic acid 400 mcg tablet 2 tab PO DAILY supplement 04/22/14 [History Last Taken 03/19/19] omeprazole 40 mg capsule,delayed release 40 mg PO DAILY GERD 06/30/16 [History Last Taken 06/26/19] tamsulosin 0.4 mg capsule 0.4 mg PO QHS BPH 05/26/17 [History Last Taken 06/24/22] acetaminophen 325 mg tablet 650 mg PO Q6H PRN PRN Fever >100.4 03/21/19 [Rx Last Taken Unknown] sildenafil 100 mg tablet 100 mg PO DAILY PRN sexual activity #4 tabs 11/17/21 [Rx Last Taken Unknown] furosemide 20 mg tablet 10 mg PO DAILY diuretic 05/15/22 [History Last Taken Unknown] aspirin 81 mg tablet,delayed release 81 mg PO DAILY heart health 06/26/22 [History Last Taken 06/24/22] Allergy/AdvReac Type Severity Reaction Status Date / Time adhesive Allergy burn-like Verified 05/23/22 13:44 cortisone [Cortisone] Allergy Rash Verified 05/23/22 13:44 simvastatin AdvReac joint/muscle Verified 05/23/22 13:44 aches Family History (Updated 06/27/22 @ 02:[address] Beatriz Fernandes MD) Father Congestive heart failure Mother Colon cancer Surgical History H/O right inguinal hernia repair History of cholecystectomy History of cholecystectomy History of gastrectomy (~07/2014) Presence of coronary angioplasty implant and graft (~09/05/02) S/P TAVR (transcatheter aortic valve replacement) (~12/27/19) Social History (Updated 06/27/22 @ 02:[address] Beatriz Fernandes MD) household members: spouse Smoking Status: Former smoker how long ago did patient quit smoking: Quit ~20 yrs prior, smoked since late 20s until quit, pipe specifically. alcohol intake: never substance use type: does not use ROS ROS Narrative As in HPI and past medical history Physical Exam Narrative Const: Alert and oriented x3, no apparent distress HEENT: Head is normocephalic, atraumatic, PERRLA Respiratory: Lung sounds clear anteriorly and posteriorly. No wheezes rhonchi rales noted Cardio: S1, S2, RRR GI: Abdomen soft, nontender, positive bowel sounds x4 quadrants Extremities: Maximino wraps intact from feet to knees. Edema noted to bilateral lower legs and thighs Medical Records Data Medical Nutrition Assessment Dietitian: Malnutrition Criteria Met Start: 06/27/22 10:36 Freq: Status: Active Protocol: Document 06/30/22 09:29 (Rec: 06/30/22 09:29 [id number]) Nutrition Malnutrition Evidence of Malnutrition Exists Yes Malnutrition (severe): Acute Illness/Injury Evidenced By Suboptimal Energy Intake ( Severe),Weight Loss (Severe), Physical Changes (Moderate) Clinical Problem Acute Disease or Injury Related Malnutrition Etiology severe, acute malnutrition related to inadequate energy intake during acute illness Signs/Symptoms as evidenced by ~4.9% wt loss < 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 Status Active Problem Recommendation Dietitian Recommendations/Changes Continue Regular No Added Salt diet d/t signs/symptoms of malnutrition; ensure clear 120mL 4x/day. Will provide meats at meals cut into bite size pieces per pt request - ok for turkey sandwich to not be cut into bite size pieces. Lab / Micro Data Result Diagrams: 06/30/22 05:25 06/30/22 05:25 Labs: Laboratory Results - last 24 hr 06/29/22 11:40: Urine Color Yellow, Urine Clarity Sl. Cloudy, Urine pH 5.0, Ur Specific Barto 1.020, Urine Protein 500 H, Urine Glucose (UA) Normal, Urine Ketones 5 H, Urine Occult Blood 250 H, Urine Nitrite Positive H, Urine Bilirubin 1 H, Urine Urobilinogen 1 H, Ur Leukocyte Esterase 25 H, Urine RBC 25-50 SEEN, Urine WBC 0-5 SEEN, Ur Squamous Epith Cells 0-5 SEEN, Urine Bacteria 2+, Urine Mucus 0 SEEN 06/29/22 11:40: Urine Osmolality 384 06/30/22 05:25: WBC 5.5, RBC 3.04 L, Hgb 9.9 L, Hct 30.5 L, MCV 100.3 H, MCH 32.6 H, MCHC 32.5, RDW Std Deviation 60.1 H, RDW Coeff of Rain 16.2 H, Plt Count 88 L, MPV 11.1, Immature Gran % (Auto) 2.900 H, Neut % (Auto) 62.3, Lymph % (Auto) 27.5, [place] % (Auto) 5.5, Eos % (Auto) 1.1, Baso % (Auto) 0.7, Absolute Neuts (auto) 3.4, Absolute Lymphs (auto) 1.51, Nucleated RBC % 0.4 06/30/22 05:25: Sodium 141, Potassium 4.2, Chloride 115 H, Carbon Dioxide 18.0 L, Anion Gap 8, BUN 66 H, Creatinine 2.42 H, Estim Creat Clear Calc 24.52, Est GFR (MDRD) Af Amer 33 L, Est GFR (MDRD) Non-Af 27 L, BUN/Creatinine Ratio 27.3 H, Glucose 90, Calcium 7.3 L Micro: Microbiology 06/26/22 19:15 Blood Culture (Wb) - Right Wrist Blood Culture - Preliminary No growth in 48 hours. 06/26/22 19:19 Blood Culture (Wb) - Anticubital Left Blood Culture - Preliminary No growth in 48 hours.
--- NOTE | 2022-06-30 11:11 | CASEMGMT ---
RJ CM into pt room to obtain HHC choice, pt states dtr has list and did not leave it. States she will be in today, will check back.
--- NOTE | 2022-06-30 12:33 | PCM.PN.HOSP ---
Subjective Subjective He continues to improve, no additional complaints today Objective Data Objective Data Vital Signs: Vital Signs Temp Pulse Resp BP Pulse Ox O2 Del Method 99.1 F 84 18 118/71 94 Room Air 06/30/22 07:56 06/30/22 07:56 06/30/22 07:56 06/30/22 07:56 06/30/22 10:36 06/30/22 07:56 Oxygen Delivery Method Room Air Weight: 76.3 kg Body Mass Index (BMI) 21.1 Intake & Output: Intake and Output for Last 24 Hours 06/28/22 06/29/22 06/30/22 23:59 23:59 23:59 Intake Total 1000 / 1000 847.5 / 1087.5 410 / 410 Output Total 500 / 1100 600 / 600 275 / 275 Balance 500 / -100 247.5 / 487.5 135 / 135 Medical Nutrition Assessment Dietitian: Malnutrition Criteria Met Start: 06/27/22 10:36 Freq: Status: Active Protocol: Document 06/30/22 09:29 (Rec: 06/30/22 09:29 [id number]) Nutrition Malnutrition Evidence of Malnutrition Exists Yes Malnutrition (severe): Acute Illness/Injury Evidenced By Suboptimal Energy Intake ( Severe),Weight Loss (Severe), Physical Changes (Moderate) Clinical Problem Acute Disease or Injury Related Malnutrition Etiology severe, acute malnutrition related to inadequate energy intake during acute illness Signs/Symptoms as evidenced by ~4.9% wt loss < 1 month 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 Status Active Problem Recommendation Dietitian Recommendations/Changes Continue Regular No Added Salt diet d/t signs/symptoms of malnutrition; ensure clear 120mL 4x/day. Will provide meats at meals cut into bite size pieces per pt request - ok for turkey sandwich to not be cut into bite size pieces. Lab / Micro Data Result Diagrams: 06/30/22 05:25 06/30/22 05:25 Labs: Laboratory Results - last 24 hr 06/29/22 11:40: Urine Osmolality 384 06/30/22 05:25: WBC 5.5, RBC 3.04 L, Hgb 9.9 L, Hct 30.5 L, MCV 100.3 H, MCH 32.6 H, MCHC 32.5, RDW Std Deviation 60.1 H, RDW Coeff of Rain 16.2 H, Plt Count 88 L, MPV 11.1, Immature Gran % (Auto) 2.900 H, Neut % (Auto) 62.3, Lymph % (Auto) 27.5, [place] % (Auto) 5.5, Eos % (Auto) 1.1, Baso % (Auto) 0.7, Absolute Neuts (auto) 3.4, Absolute Lymphs (auto) 1.51, Nucleated RBC % 0.4 06/30/22 05:25: Sodium 141, Potassium 4.2, Chloride 115 H, Carbon Dioxide 18.0 L, Anion Gap 8, BUN 66 H, Creatinine 2.42 H, Estim Creat Clear Calc 24.52, Est GFR (MDRD) Af Amer 33 L, Est GFR (MDRD) Non-Af 27 L, BUN/Creatinine Ratio 27.3 H, Glucose 90, Calcium 7.3 L Micro: Microbiology 06/29/22 11:10 Urine, Clean Catch Urine Culture - Preliminary Mixed Gram Positive Organisms 06/26/22 19:15 Blood Culture (Wb) - Right Wrist Blood Culture - Preliminary No growth in 48 hours. 06/26/22 19:19 Blood Culture (Wb) - Anticubital Left Blood Culture - Preliminary No growth in 48 hours. 06/26/22 19:15 Urine, Clean Catch Urine Culture - Final Mixed Gram Positive Organisms 06/26/22 Unknown Mucosa - Nasopharyngeal Respiratory Panel (PCR) - Final 06/26/22 19:15 Nasal Secretion SARS-CoV-2 & FLU Antigen (Rapid) - Final Physical Exam Const alert and no apparent distress HEENT normocephalic and head/scalp atraumatic Eyes Eyes Narrative: EOM grossly intact, anicteric Neck supple Resp normal respiratory effort and clear to auscultation bilaterally Cardio regular rate and regular rhythm GI soft to palpation, non-tender and non-distended Extremity Extremity Narrative: No edema appreciated Neuro moves all extremities Neuro Narrative: No overt focal deficits appreciated Psych Psych Narrative: Cooperative Assessment & Plan Assessment/Plan (1) Fever, unknown origin: (2) Acute kidney injury: PLAN: Plan 86-year-old male with a past medical history of GERD, CKD stage III, CAD status post PCI, valvular heart disease status post TAVR, chronic thrombocytopenia presented 06/26 with fever, confusion, myalgias and chills. ED revealed temp 101.8, respiratory rate 22 and 91% on room air, troponin 37, chest x-ray no acute cardiopulmonary findings. #DELGADO on CKD III unclear subtype Secondary to acute illness Creatinine 2.17 with previous baseline 1?1 0.3 Hydrating, nephrotoxic medications held Slowly improving with hydration 06/28: Worsened today, unclear etiology. Will give further fluids, urine studies, kidney ultrasound, monitor BMP 06/29: Did worsen again today, appeared to be prerenal, renal ultrasound with no hydronephrosis but does have some evidence of renal cysts, no obstructing stones. Will give more fluids, urine eosinophils, UA, urine osmolality. Given worsening and not improving concerned for worsening he is discharged, will monitor throughout the morning and reevaluate 06/30: Due to slightly worsening renal function despite intervention nephrology was consulted. Will continue hydration, nephro to follow #Acute metabolic encephalopathy-improved Was febrile on admission, lowest O2 sat 91% Flu and COVID-negative Chest x-ray with no acute cardiopulmonary findings CT head on admission with no acute abnormalities Awaiting blood culture, urine culture, sputum culture ordered if productive cough UA unremarkable Alert and oriented this morning Was not given antibiotics due to no source of infection but has not been febrile and cultures no growth to date PT/OT consult 06/28: Appears resolved, query if there is a component of dehydration. Beginning to do better today 06/29 doing well #Chronic macrocytic anemia Hemoglobin 12.7 on admission, today 8.5 No obvious source of bleeding, given significant dehydration on admission and variable baseline suspect this is primarily delusional especially given all cell lines decreased Checking B12 and folate We will also obtain iron panel 06/28: B12 low, iron panel consistent with anemia of chronic disease, did start on iron and B12 supplementation, stable at this time #Valvular heart disease status post TAVR Most recent echo 05/31/2022 with normal LV systolic function, EF 65% Mild enlarged left atrium, mild mitral valve stenosis, mild to moderate MVI, moderate DVI, stable appearing bioprosthetic AV apparatus, trivial pericardial effusion, RVSP 26, stage II diastolic dysfunction #Heart failure with preserved ejection fraction, chronic Echo 05/31 with stage II diastolic dysfunction Given DELGADO and appearance of dehydration Home Lasix have been held BNP 555 on admission, not appear overloaded. Unclear baseline given no recent measures #Chronic thrombocytopenia Admission platelets 84 with prior baseline 120?140 but has been intermittently normal in the past Likely decrease secondary to acute presentation #Coronary artery disease status post PCI On aspirin at home, no statin on home med list and does not appear to be on beta-josselyn, REGAN or ARB #GERD Omeprazole at home, Protonix inpatient #Hypertension Holding Lasix temporarily given DELGADO Holding home tamsulosin given soft BP #History of esophageal cancer status postsurgical intervention partial gastrectomy Given history of partial gastrectomy with current altered mental status will obtain B12 06/28: B12 low, replacement #Abdominal aortic aneurysm: Noted history without rupture, 03/21/2019 last noted imaging with evidence of focal saccular infrarenal abdominal aortic aneurysm with transverse dimension 3.4 cm, encourage continued outpatient follow-up and imaging #SHALOM on cpap #BPH Holding home Flomax given soft BP #DVT ppx: SCDs, heparin Elvira Torres MD Charges/Coding Visit Charges Inpatient E&M: 24782 Subs Hosp L2
[2022-07-01 02:51] VITALS: BP 113/69; PULSE 77; RESP 16; TEMP 37.3; O2SAT 97
[2022-07-01 06:37] LABS: Anion Gap 7 (5-15); BUN 67 mg/dL (7-18); BUN/Creat Ratio 27.7 RATIO (10-20); Calcium,Total 6.9 mg/dL (8.5-10.1); Chloride 119 mmol/L (98-107); Creatinine, Serum 2.42 mg/dL (0.70-1.30); EST Glomerular Filtration Rate 27 mL/min (>60); Est Glom Filt Rate - Afr Amer 33 mL/min (>60); Estimated Creatinine Clearance 25.68 ml/min; Glucose 93 mg/dL (74-106); Potassium 3.9 mmol/L (3.5-5.1); Sodium Level 144 mmol/L (136-145)
[2022-07-01 07:40] VITALS: O2SAT 92
[2022-07-01 08:51] VITALS: BP 112/79; PULSE 80; RESP 16; TEMP 36.6; O2SAT 99
--- NOTE | 2022-07-01 09:11 | CASEMGMT ---
Addendum entered by Kalyn Warren 07/01/22 14:47: Family member requested RN CM to speak with him, son in law. He states that they need time to get the home ready for pt to come home. States he prefers pt stay overnight in the hospital one more night as they need to clean up the house from the cats. States there are 10 cats inside the house and outside. Made him aware pt is medically ready for dc and that pt does not have to leave right now. Made aware that he and the other 5 family members in the room can work on cleaning up the house yet today and pt leave a little later. He states this will take much more time than this. He states that he would like this RN CM to tell the pt that she needs to be evaluated for a UTI. Made him aware that this RN CM could not do this. He states that they have also called APS on pt . Updated hospitalist on family request, pt is medically ready to dc. Updated SW on the situation. RN CM into pt room to discuss dc plan with patient. Pt A&Ox3, pt states he wants to go home. Asked pt if he in this physical state feels safe to return home, he states he does. He denies need to go to SNF for s/t placement for therapy. He wants to dc home and shave and go to bed. He states he feels safe even though there are cats in the home. Pt dtr states they are going to get groceries for pt tonight. Pt states they have resources given by SW on meals but does not need these. Pt and family are aware that HHC will be out tomorrow and APS will be out in the next 3 business days. Encouraged pt and to allow [facility] to provide all services ordered. Pt and agree to this. Pt and family deny further needs at this time. Plan to dc today. Addendum entered by Kalyn Warren 07/01/22 09:40: Pt is in agreement with dtr's choosing of [facility] for DME, provided pt with a local healthcare directory list as well per request. Pt is aware that the FWW will be delivered prior to dc. Referral sent to [facility] at [facility]. Addendum entered by Kalyn Warren 07/01/22 09:31: TC to pt dtr to make aware that HHC can start tomorrow. She states she is not aware that the pt is dc'ing today. Made her aware that per hospitalist, she is awaiting nephrology today. She is aware that if pt does not dc today, HHC will reschedule. She states she does not feel pt is medically ready to leave and states the home is not ready for HHC. She does not feel pt needs to go to SNF. Made her aware that a FWW is ordered. Provided her with a verbal local in network list of DME companies, she chose [employer]. She states she will be in to visit with patient shortly. Addendum entered by Kalyn Warren 07/01/22 09:22: Received tc from Nandini at [facility], they are able to accept pt for SOC tomorrow. Original Note: RJ CM in to pt room for C choice, pt working with therapy. Pt states dtr did not leave list. TC to pt dtr. She has chosen [facility] next then [facility]. TC to Nandini at [facility] and referral made, will await acceptance.
[2022-07-01] MEDS: Ceftriaxone 1 GM/50 ML BAG IV (09:39)
[2022-07-01] MEDS: 0.9% Normal Saline 1,000 ML 75 ML IV (09:41)
[2022-07-01] MEDS: Pantoprazole Sodium 40 MG Tablet PO (09:42)
[2022-07-01] MEDS: Iron Polysaccharide Complex 150 MG CAPSULE PO (09:42)
[2022-07-01] MEDS: Aspirin E.C. 81 MG Tablet PO (09:42)
[2022-07-01] MEDS: Heparin Injection (Vial) 5,000 UNIT/ML VIAL 5000 UNIT SC (09:43)
[2022-07-01] MEDS: Ensure Clear 120 ML Liquid PO (09:46)
[2022-07-01] MEDS: Menthol/Lanolin/Calamine/Znox 113 GM Tube 1 APPLIC TOPICAL (09:48)
[2022-07-01] MEDS: Cyanocobalamin 500 MCG Tablet 1000 MCG PO (09:52)
[2022-07-01 10:22] VITALS: O2SAT 95
--- NOTE | 2022-07-01 10:48 | DCINST_ITS ---
Discharge Instructions Diet Discharge Diet: No restrictions Activity Discharge Activity: Return to Normal Activity Follow Up Care Test Results: Test results from this visit will be discussed in further detail at your follow- up appointment, if applicable. Discharge Plan Admission Admit Date/Time: 06/26/22 20:55 Primary Reason for Your Visit: Fatigue and chills Attending Provider: Elvira Torres Primary Care Provider: Lex Gold Consulting Providers: Beatriz Fernandes ; Sidra Carias Instructions Patient Instructions: ED Bladder Infection, Male (Adult) Additional Instructions / Restrictions: *Please take this with you to your next doctors appointment* ? You have been started on B12 due to low B12 levels, please take this daily ?You have also been started on iron supplementation you will also take this daily ?Your Lasix has been held, please continue adequate hydration, would recommend elevating your legs several times a day as well, especially when sitting ?There was concern for urinary tract infection during your admission. You will be sent home with a prescription for Augmentin for 5 more days of antibiotics, you will need to take this with food and you will take your first dose tonight 07/01. This has been sent to your preferred pharmacy on file ?It will be very important that you called to follow-up with Dr. Gold upon discharge. Please call the day of discharge to schedule a hospital follow-up appointment within 1 week. ? When you call to schedule your hospital follow-up it is imperative that you obtain an order for blood work to monitor your kidney function through your primary care physician office (BMP.) ?Please follow-up with nephrology, the kidney doctors, upon discharge. You will be contacted by the nephrology (kidney doctor) office with a hospital follow-up appointment. If you do not hear from the office in 2-3 business days please call to schedule hospital follow-up -Please call your primary care provider's office upon discharge to schedule a hospital follow up within 1 week. -For any concerning signs or symptoms please call 911 or proceed to the nearest emergency department Discharge Orders/Prescriptions Prescriptions: New polysaccharide iron complex [Ferrex 150] 150 mg iron Capsule 150 mg PO DAILYCM 30 Days Qty: 30 0RF cyanocobalamin (vitamin B-12) 500 mcg Tablet 1,000 mcg PO BREAKFAST 30 Days Qty: 60 0RF amoxicillin-pot clavulanate [Augmentin] 500-125 mg tablet 1 tab PO Q12H Qty: 10 0RF Rx Instructions: Start the evening of 07/01. Take with food or milk Continued sildenafil 100 mg tablet 100 mg PO DAILY PRN (Reason: sexual activity) Qty: 4 5RF Rx Instructions: administer 30 minutes to 4 hours before activity multivitamin with folic acid 1 TABLET tablet 2 tab PO DAILY Label Comments: vitamin omeprazole 40 MG capsule 40 mg PO DAILY Label Comments: ACID REFLUX tamsulosin 0.4 MG capsule 0.4 mg PO QHS acetaminophen 325 MG tablet 650 mg PO Q6H PRN PRN (Reason: Fever >100.4) 0RF aspirin 81 mg tablet,delayed release (DR/EC) 81 mg PO DAILY Discontinued furosemide 20 mg tablet 10 mg PO DAILY Referrals / Follow Up: Lex Gold MD [Primary Care Provider] - Within 1 Week Leonarda Mtz NP-C [Med Staff - Adv Practice Prof] - See Referral Note (You will be contacted by the nephrology (kidney doctor) office with a hospital follow-up appointment. If you do not hear from the office in 2-3 business days please call to schedule hospital follow-up) Disposition Disposition (needs filled in before D/C Order can be placed): Home, Self Care
--- NOTE | 2022-07-01 11:12 | DS.PCM_ITS ---
Providers Date of Admission: 06/26/22 Date of Discharge: 07/01/22 Primary Care Physician: Dr. Lex Gold MD Consultations 06/30/22 08:21 Consult: Nephrology Routine Consulting Provider: Sidra Carias Reason for Consult: Worsening DELGADO despite fluids etc, unclear etiology EMERGENT Consult: No MD Notified: Yes Date Notified: 06/30/22 Time Notified: 10:21 Method of Notification: Answering Service Reason For Visit: VIRAL SYNDROME, DELGADO Diagnosis Discharge Diagnosis (1) Fever, unknown origin: Status: Acute Code(s): R50.9 - Fever, unspecified (2) Acute kidney injury: Status: Acute Code(s): N17.9 - Acute kidney failure, unspecified (3) CKD (chronic kidney disease) stage 3, GFR 30-59 ml/min: Status: Chronic Code(s): N18.30 - Chronic kidney disease, stage 3 unspecified (4) UTI (urinary tract infection): Status: Acute Code(s): N39.0 - Urinary tract infection, site not specified Plan #DELGADO on CKD III unclear subtype #Acute urinary tract infection #Acute metabolic encephalopathy-improved #Chronic macrocytic anemia #Valvular heart disease status post TAVR #Heart failure with preserved ejection fraction, chronic #Chronic thrombocytopenia #Coronary artery disease status post PCI #GERD #Hypertension #History of esophageal cancer status postsurgical intervention partial gastrectomy #Abdominal aortic aneurysm #SHALOM #BPH Medications at Discharge Home Medications multivitamin with folic acid 400 mcg tablet 2 tab PO DAILY supplement 04/22/14 omeprazole 40 mg capsule,delayed release 40 mg PO DAILY GERD 06/30/16 tamsulosin 0.4 mg capsule 0.4 mg PO QHS BPH 05/26/17 acetaminophen 325 mg tablet 650 mg PO Q6H PRN PRN Fever >100.4 03/21/19 sildenafil 100 mg tablet 100 mg PO DAILY PRN sexual activity #4 tabs 11/17/21 aspirin 81 mg tablet,delayed release 81 mg PO DAILY heart health 06/26/22 amoxicillin 500 mg-potassium clavulanate 125 mg tablet (Augmentin) 1 tab PO Q12H #10 tabs 07/01/22 cyanocobalamin (vitamin B-12) 500 mcg tablet 1,000 mcg PO BREAKFAST 30 days #60 tabs 07/01/22 polysaccharide iron complex 150 mg iron capsule (Ferrex) 150 mg PO DAILYCM 30 days #30 caps 07/01/22 Hospital Course Summary of Care Provided Minutes Spent on Discharge: 34 Hospital Course: 86-year-old male with a past medical history of GERD, CKD stage III, CAD status post PCI, valvular heart disease status post TAVR, chronic thrombocytopenia presented 06/26 with fever, confusion, myalgias and chills.? ED revealed temp 101.8, respiratory rate 22 and 91% on room air, troponin 37, chest x-ray no acute cardiopulmonary findings. No antibiotics were started initially as he improved with just fluids and no source of infection was found. He did however have worsening kidney function. FeNA prerenal, kidney and bladder ultrasound with bilateral renal cysts and some nonobstructive intrarenal calculi on the rig ht. Repeat UA was suspicious for UTI and he was started on antibiotics. Given continued worsening in kidney function nephrology was consulted and he was further hydrated. Kidney function on day of discharge had stabilized. Spoke with nephrology and he will need outpatient blood work and PCP and nephrology follow-up. Will complete course of antibiotics for UTI. We will also hold Lasix on discharge. Instructions provided to patient as below: *Please take this with you to your next doctors appointment* ?? You have been started on B12 due to low B12 levels, please take this daily ?You have also been started on iron supplementation you will also take this daily ?Your Lasix has been held, please continue adequate hydration, would recommend elevating your legs several times a day as well, especially when sitting ?There was concern for urinary tract infection during your admission.? You will be sent home with a prescription for Augmentin for 5 more days of antibiotics, you will need to take this with food and you will take your first dose tonight 07/01.? This has been sent to your preferred pharmacy on file ?It will be very important that you called to follow-up with Dr. Gold upon discharge.? Please call the day of discharge to schedule a hospital follow-up appointment within 1 week. ? When you call to schedule your hospital follow-up it is imperative that you obtain an order for blood work to monitor your kidney function through your primary care physician office ([facility] ?Please follow-up with nephrology, the kidney doctors, upon discharge.? You will be contacted by the nephrology (kidney doctor) office with a hospital follow-up appointment.? If you do not hear from the office in 2-3 business days please call to schedule hospital follow-up -Please call your primary care provider's office upon discharge to schedule a hospital follow up within 1 week. -For any concerning signs or symptoms please call 911 or proceed to the nearest emergency department On day of discharge she reports feeling well, no nausea, urinating well. Had no additional complaints. Physical Exam Const alert and no apparent distress HEENT normocephalic and head/scalp atraumatic Eyes Eyes Narrative: EOM grossly intact, anicteric Neck supple Resp normal respiratory effort and clear to auscultation bilaterally Cardio regular rate and regular rhythm GI soft to palpation, non-tender and non-distended Extremity Extremity Narrative: No edema appreciated Neuro moves all extremities Neuro Narrative: No overt focal deficits appreciated Psych Psych Narrative: Cooperative Medical Records Data Medical Nutrition Assessment Dietitian: Malnutrition Criteria Met Start: 06/27/22 10:36 Freq: Status: Active Protocol: Document 06/30/22 09:29 (Rec: 06/30/22 09:29 [id number]) Nutrition Malnutrition Evidence of Malnutrition Exists Yes Malnutrition (severe): Acute Illness/Injury Evidenced By Suboptimal Energy Intake ( Severe),Weight Loss (Severe), Physical Changes (Moderate) Clinical Problem Acute Disease or Injury Related Malnutrition Etiology severe, acute malnutrition related to inadequate energy intake during acute illness Signs/Symptoms as evidenced by ~4.9% wt loss < 1 month MANAGER BEVERAGE, PO intake meeting <50% of estimated energy needs > 5 days; Moderate muscle wasting/fat loss evident in upper extremities, orbital, clavicle , and acromion areas per physical exam. Status Active Problem Recommendation Dietitian Recommendations/Changes Continue Regular No Added Salt diet d/t signs/symptoms of malnutrition; ensure clear 120mL 4x/day. Will provide meats at meals cut into bite size pieces per pt request - ok for turkey sandwich to not be cut into bite size pieces. Weight / BMI Weight Weight: 80 kg Body Mass Index (BMI) 21.1 ABG / Lab / Microbiology Data Result Diagrams: 06/30/22 05:25 07/01/22 05:20 Laboratory: Laboratory Results - last 24 hr 07/01/22 05:20: Sodium 144, Potassium 3.9, Chloride 119 H, Carbon Dioxide 18.0 L , Anion Gap 7, BUN 67 H, Creatinine 2.42 H, Estim Creat Clear Calc 25.68, Est GFR (MDRD) Af Amer 33 L, Est GFR (MDRD) Non-Af 27 L, BUN/Creatinine Ratio 27.7 H , Glucose 93, Calcium 6.9 L Microbiology: Microbiology 06/29/22 11:10 Urine, Clean Catch Urine Culture - Final Mixed Gram Positive Organisms 06/26/22 19:15 Blood Culture (Wb) - Right Wrist Blood Culture - Preliminary No growth in 48 hours. 06/26/22 19:19 Blood Culture (Wb) - Anticubital Left Blood Culture - Preliminary No growth in 48 hours. 06/26/22 19:15 Urine, Clean Catch Urine Culture - Final Mixed Gram Positive Organisms 06/26/22 Unknown Mucosa - Nasopharyngeal Respiratory Panel (PCR) - Final 06/26/22 19:15 Nasal Secretion SARS-CoV-2 & FLU Antigen (Rapid) - Final D/C Instructions Discharge Diet: No restrictions Meaningful Use Info Meaningful Use Diagnoses (Choose all that apply): None applicable Discharge Plan Admission Admit Date/Time: 06/26/22 20:55 Primary Reason for Your Visit: Fatigue and chills Attending Provider: Elvira Torres Primary Care Provider: Lex Gold Consulting Providers: Beatriz Fernandes ; Sidra Carias Instructions Patient Instructions: ED Bladder Infection, Male (Adult) Additional Instructions / Restrictions: *Please take this with you to your next doctors appointment* ? You have been started on B12 due to low B12 levels, please take this daily ?You have also been started on iron supplementation you will also take this d aily ?Your Lasix has been held, please continue adequate hydration, would recommend elevating your legs several times a day as well, especially when sitting ?There was concern for urinary tract infection during your admission. You will be sent home with a prescription for Augmentin for 5 more days of antibiotics, you will need to take this with food and you will take your first dose tonight 07/01. This has been sent to your preferred pharmacy on file ?It will be very important that you called to follow-up with Dr. Gold upon discharge. Please call the day of discharge to schedule a hospital follow-up appointment within 1 week. ? When you call to schedule your hospital follow-up it is imperative that you obtain an order for blood work to monitor your kidney function through your primary care physician office ([facility] ?Please follow-up with nephrology, the kidney doctors, upon discharge. You will be contacted by the nephrology (kidney doctor) office with a hospital follow-up appointment. If you do not hear from the office in 2-3 business days please yana l to schedule hospital follow-up -Please call your primary care provider's office upon discharge to schedule a hospital follow up within 1 week. -For any concerning signs or symptoms please call 911 or proceed to the nearest emergency department Discharge Orders/Prescriptions Prescriptions: New polysaccharide iron complex [Ferrex 150] 150 mg iron Capsule 150 mg PO DAILYCM 30 Days Qty: 30 0RF cyanocobalamin (vitamin B-12) 500 mcg Tablet 1,000 mcg PO BREAKFAST 30 Days Qty: 60 0RF amoxicillin-pot clavulanate [Augmentin] 500-125 mg tablet 1 tab PO Q12H Qty: 10 0RF Rx Instructions: Start the evening of 07/01. Take with food or milk Continued sildenafil 100 mg tablet 100 mg PO DAILY PRN (Reason: sexual activity) Qty: 4 5RF Rx Instructions: administer 30 minutes to 4 hours before activity multivitamin with folic acid 1 TABLET tablet 2 tab PO DAILY Label Comments: vitamin omeprazole 40 MG capsule 40 mg PO DAILY Label Comments: ACID REFLUX tamsulosin 0.4 MG capsule 0.4 mg PO QHS acetaminophen 325 MG tablet 650 mg PO Q6H PRN PRN (Reason: Fever >100.4) 0RF aspirin 81 mg tablet,delayed release (DR/EC) 81 mg PO DAILY Discontinued furosemide 20 mg tablet 10 mg PO DAILY Referrals / Follow Up: Lex Gold MD [Primary Care Provider] - Within 1 Week Leonarda Mtz NP-C [Med Staff - Adv Practice Prof] - See Referral Note (You will be contacted by the nephrology (kidney doctor) office with a hospital follow-up appointment. If you do not hear from the office in 2-3 business days please call to schedule hospital follow-up) Disposition Disposition (needs filled in before D/C Order can be placed): Home, Self Care Charges/Coding Visit Charges Inpatient E&M: 37778 Disch Hosp
--- NOTE | 2022-07-01 14:25 | CASEMGMT ---
Addendum entered by Barbara Proctor 07/01/22 14:53: SW received a return call from the [place] [employer]. They cannot do anything about the cat situation, however if APS goes in and reports the situation is unsafe then they can get involved. NUHA called Bean at [facility] back to let her know. She will follow up as needed regarding the cats. FABIOLA Stout Addendum entered by Barbara Proctor 07/01/22 14:37: SW called [facility], spoke w/Bean, they will be out to visit in the next three business days. In regard to the cats, Bean states to call the Cosmetic Account Coordinator's department. NUHA called the [employer]metic Account Coordinator's Department, they transferred SW to [place] [employer], SW let them know about the cat hoarding situation. FABIOLA Stout Original Note: Social Work As per CM, family has concerns about the home, as there are multiple cats. Also, pt's has dementia and they are concerned she is not caring for herself or the animals properly. Also, they have called APS themselves. NUHA called [facility] and left a message inquiring if they can do a check on pt and spouse, that pt will be going home today or tomorrow. FABIOLA Stout
== END 2022-07-01 15:09 | DRG 371 ==
LOC: ED 20:17 → MS3 21:24
PROVIDERS: Nurse Practitioner; Admitting Provider Family Medicine; Emergency Provider Emergency Medicine; PCP Internal Medicine; Visit Provider Internal Medicine
DX: A04.72 Enterocolitis due to Clostridium difficile, not specified as recurrent (principal); G93.41 Metabolic encephalopathy; E43 Unspecified severe protein-calorie malnutrition; I13.0 Hypertensive heart and chronic kidney disease with heart failure and stage 1 through stage 4 chronic kidney disease, or unspecified chronic kidney disease; N17.9 Acute kidney failure, unspecified; I50.32 Chronic diastolic (congestive) heart failure; E87.0 Hyperosmolality and hypernatremia; N18.4 Chronic kidney disease, stage 4 (severe); N39.0 Urinary tract infection, site not specified; D69.6 Thrombocytopenia, unspecified; E78.5 Hyperlipidemia, unspecified; D53.9 Nutritional anemia, unspecified; I12.9 Hypertensive chronic kidney disease with stage 1 through stage 4 chronic kidney disease, or unspecified chronic kidney disease; I25.10 Atherosclerotic heart disease of native coronary artery without angina pectoris; K21.9 Gastro-esophageal reflux disease without esophagitis; I05.0 Rheumatic mitral stenosis; G47.33 Obstructive sleep apnea (adult) (pediatric); M79.10 Myalgia, unspecified site; D63.1 Anemia in chronic kidney disease; R26.2 Difficulty in walking, not elsewhere classified; I25.2 Old myocardial infarction; Z95.2 Presence of prosthetic heart valve; Z79.82 Long term (current) use of aspirin; Z87.891 Personal history of nicotine dependence; R60.0 Localized edema; I71.43 Infrarenal abdominal aortic aneurysm, without rupture; R53.1 Weakness; R50.9 Fever, unspecified; Z80.0 Family history of malignant neoplasm of digestive organs; N28.1 Cyst of kidney, acquired; N40.0 Benign prostatic hyperplasia without lower urinary tract symptoms; Z85.01 Personal history of malignant neoplasm of esophagus; R60.1 Generalized edema; N50.89 Other specified disorders of the male genital organs; Z20.822 Contact with and (suspected) exposure to COVID-19; Z95.5 Presence of coronary angioplasty implant and graft; Z68.25 Body mass index [BMI] 25.0-25.9, adult
CPT/HCPCS: 36415; 70450; 71045; 72170; 76770; 80048; 80053; 80061; 81001; 81002; 81050; 82436; 82570; 82607; 82728; 82746; 83540; 83550; 83605; 83735; 83880; 83935; 84100; 84133; 84156; 84300; 84439; 84443; 84481; 84484; 84540; 85025; 85610; 85730; 86038; 86160; 87040; 87086; 87088; 87428; 87493; 87506; 87633; 87635; 87811; 93005; 97110; 97116; 97162; 97166; 97530; 97535; 97802; 97803; 99251; 99252; 99285; J7030; J7040; J7120; A4216; G0463; J1940; J2405; U0003; U0005

== ENCOUNTER 2022-07-03 04:46 | Inpatient (IN) | payer MEDICARE, SELFPAY ==
[2022-07-03] VITALS (10 sets, daily range): BP systolic 112–124; BP diastolic 53–88; PULSE 46–94; RESP 16–20; TEMP 36.2–36.8; O2SAT 97–100; BMI 25.1
--- NOTE | 2022-07-03 05:19 | RAD_ITS ---
STUDY: X-RAY - PELVIS REASON FOR EXAM: Male, 86 years old. fall TECHNIQUE: One view of the pelvis was obtained. COMPARISON: CT abdomen and pelvis March 21, 2019. FINDINGS: There is a non-specific bowel gas pattern. Normal visualized soft tissue structures. Phleboliths in the pelvis. Degenerative changes lower lumbar spine. Normal bilateral iliac wings, sacroiliac joints and visualized sacrum. Normal visualized bilateral superior and inferior pubic rami. Normal pubic symphysis. Normal ischial tuberosities. Normal visualized right femoral head. Normal right acetabulum. Normal right hip joint. Normal visualized left femoral head. Normal left acetabulum. Normal left hip joint. RAD/Pelvis 1 or 2 Views IMPRESSION: No acute findings in the pelvis. No fracture identified. Electronically Signed: Teodoro Miller MD at 6:14 EST Reading Location ID and State: [id number] / , Service support ,
--- NOTE | 2022-07-03 05:40 | RAD_ITS ---
STUDY: X-RAY CHEST REASON FOR EXAM: Male, 86 years old. fall TECHNIQUE: Single AP portable view of the chest. COMPARISON: June 26, 2022. FINDINGS: No focal infiltrates or effusions. No pneumothorax. There is now indistinct perihilar density suggestive of mild interstitial pulmonary edema Borderline cardiomegaly. Prosthetic cardiac valve. Normal mediastinum and gui. Normal visualized pulmonary arteries. Normal visualized aortic arch and descending thoracic aorta. Normal visualized thoracic spine. Normal visualized ribs, clavicles, and shoulders. There is no demonstrated abnormality of the visualized soft tissue structures of the upper abdomen. RAD/Chest 1 View (Portable) IMPRESSION: Mild interstitial pulmonary edema. Electronically Signed: Teodoro Miller MD at 6:06 EST Reading Location ID and State: [id number] / , Service support ,
[2022-07-03 06:27] LABS: Absolute Lymphocyte Count 1.72 X10^3/uL (0.83-4.51); Absolute Neutrophil Count 3.9 X10^3/uL (2.0-7.7); Basophil# 0.04 X10^3/uL; Basophil% 0.6 % (0-1); Eosinophil# 0.05 X10^3/uL; Eosinophils% 0.8 % (0-5); Hematocrit 29.6 % (40-54); Hemoglobin 9.4 g/dL (13.0-16.5); Lymphocyte # 1.72 X10^3/ul (0.83-4.51); Lymphocyte % 27.6 % (19-41); Mean Corp Hgb Conc 31.8 g/dL (32-36); Mean Corpuscular Hgb 31.9 pg (27.0-32.0); Mean Corpuscular Volume 100.3 fL (80-94); Mean Platelet Vol. 11.3 fl (6.2-12.0); Monocyte# 0.38 X10^3/uL; Monocyte% 6.1 % (0-10); NRBC Flagged by Analyzer 0 % (0-5); Neutrophil # 3.89 X10^3/uL (2.7-7.7); Neutrophil % 62.5 % (47-70); Platelet Count 106 K/mm3 (150-450); RBC Distribution Width CV 16.6 % (11.6-14.6); RBC Distribution Width SD 60.8 fl (35.1-43.9); Red Blood Count 2.95 M/mm3 (4.6-6.2); White Blood Count 6.2 K/mm3 (4.4-11.0)
[2022-07-03 06:50] LABS: Anion Gap 10 (5-15); BUN 72 mg/dL (7-18); BUN/Creat Ratio 28.9 RATIO (10-20); Calcium,Total 7.5 mg/dL (8.5-10.1); Chloride 122 mmol/L (98-107); Creatinine, Serum 2.49 mg/dL (0.70-1.30); EST Glomerular Filtration Rate 26 mL/min (>60); Est Glom Filt Rate - Afr Amer 32 mL/min (>60); Estimated Creatinine Clearance 24.96 ml/min; Glucose 102 mg/dL (74-106); Magnesium 2.3 mg/dL (1.6-2.6); Potassium 3.8 mmol/L (3.5-5.1); Sodium Level 149 mmol/L (136-145)
[2022-07-03 07:43] LABS: BNP,B-Type NATRIURETIC PEPTIDE 542.6 pg/mL (0-100)
--- NOTE | 2022-07-03 08:35 | EX.ED.DYSGE1 ---
HPI History of Present Illness Chief Complaint: Other, Pain/Inj Narrative Narrative: Patient is 86-year-old male from home with history of chronic kidney disease hypertension and CAD as well as hyperlipidemia. He was recently admitted to the hospital on roughly discharge 24 hours ago. He states once he returned home he went walking around [place] with his walker. He states however later in the evening he began to feel generalized weakness and had difficulty standing and fell from a standing position. He denies striking his head or any loss of consciousness but states that he fell like he had increased swelling to his testicles after this. Family states that with his recent hospitalization now the fact he is complaining of increased weakness and has fallen secondary to the weakness they are concerned that he may be readmitted and had him brought in for evaluation [facility] Medical History (Updated 07/03/22 @ 08:[address] Victoriano Henry, ) Abdominal aortic aneurysm (AAA) Abdominal aortic aneurysm without rupture Atherosclerotic heart disease of [place] coronary artery without angina pectoris BPH (benign prostatic hyperplasia) CAD (coronary artery disease) Esophageal cancer Essential hypertension Gastric adenocarcinoma Gout History of left heart catheterization (LHC) (~06/26/19) HTN (hypertension) Hyperlipidemia Murmur, cardiac Non-rheumatic aortic stenosis Old myocardial infarction Presence of stent in coronary artery (~09/05/02) Sleep apnea Home Medications multivitamin with folic acid 400 mcg tablet 2 tab PO DAILY supplement 04/22/14 [History Last Taken 03/19/19] omeprazole 40 mg capsule,delayed release 40 mg PO DAILY GERD 06/30/16 [History Last Taken 06/26/19] tamsulosin 0.4 mg capsule 0.4 mg PO QHS BPH 05/26/17 [History Last Taken 06/24/22] acetaminophen 325 mg tablet 650 mg PO Q6H PRN PRN Fever >100.4 03/21/19 [Rx Last Taken Unknown] sildenafil 100 mg tablet 100 mg PO DAILY PRN sexual activity #4 tabs 11/17/21 [Rx Last Taken Unknown] aspirin 81 mg tablet,delayed release 81 mg PO DAILY heart health 06/26/22 [History Last Taken 06/24/22] amoxicillin 500 mg-potassium clavulanate 125 mg tablet (Augmentin) 1 tab PO Q12H #10 tabs 07/01/22 [Rx Last Taken Unknown] cyanocobalamin (vitamin B-12) 500 mcg tablet 1,000 mcg PO BREAKFAST 30 days #60 tabs 07/01/22 [Rx Last Taken Unknown] polysaccharide iron complex 150 mg iron capsule (Ferrex) 150 mg PO DAILYCM 30 days #30 caps 07/01/22 [Rx Last Taken Unknown] Allergy/AdvReac Type Severity Reaction Status Date / Time adhesive Allergy burn-like Verified 05/23/22 13:44 cortisone [Cortisone] Allergy Rash Verified 05/23/22 13:44 simvastatin AdvReac joint/muscle Verified 05/23/22 13:44 aches Family History (Updated 06/27/22 @ 02:[address] Beatriz Fernandes MD) Father Congestive heart failure Mother Colon cancer Surgical History H/O right inguinal hernia repair History of cholecystectomy History of cholecystectomy History of gastrectomy (~07/2014) Presence of coronary angioplasty implant and graft (~09/05/02) S/P TAVR (transcatheter aortic valve replacement) (~12/27/19) Social History (Updated 06/27/22 @ 02:[address] Beatriz Fernandes MD) household members: spouse Smoking Status: Former smoker how long ago did patient quit smoking: Quit ~20 yrs prior, smoked since late 20s until quit, pipe specifically. alcohol intake: never substance use type: does not use ROS ROS ED Constitutional Constitutional ED: Denies chills or fever(s) Eyes Eyes: Denies change in vision ENT ENT ED: Denies sore throat Cardiovascular Cardiovascular: Denies chest pain Respiratory/Chest Respiratory/Chest: Denies cough or dyspnea Gastrointestinal Gastrointestinal: Denies abdominal pain, diarrhea, nausea or vomiting Genitourinary Genitourinary ED: Reports other Details: Positive testicular swelling ; Denies dysuria Musculoskeletal Musculoskeletal: Denies back pain, myalgias or neck pain Integumentary Denies rash Neurologic Neurologic: Reports weakness; Denies headache(s) Hematologic/Lymphatic Hematologic/Lymphatic: Denies easy bleeding or easy bruising EXAM Physical Exam Const Vital Signs: 07/03/22 04:48 Temperature 98.2 F Temperature Source Temporal Pulse Rate 74 Respiratory Rate 16 Blood Pressure 112/53 L Blood Pressure Mean 72 Pulse Ox 99 Oxygen Delivery Method Room Air Positive well nourished and well developed General Appearance ED: well developed HEENT Reports dry mucous membranes HEENT Narrative: No signs of depressed or basilar skull fracture Mouth ED: Yes dry mucous membranes Mouth: dry mucous membranes Eyes PERRL and EOMs intact bilaterally Neck supple Neck Narrative: Trace JVD on right No bony deformity or step-off of the cervical spine no midline pain with palpation Chest Wall palpation of chest normal Chest Narrative: No bony deformity or crepitance Resp normal respiratory effort Resp Narrative: Breath sounds are diminished throughout with faint rhonchi noted in the bilateral lobes but no nasal flaring retractions tachypnea or accessory muscle use Cardio regular rate and regular rhythm Rate: other Other Details: Radial pulses are +2-4 bilaterally are equal and symmetric GI non-tender, non-distended and no masses GI Narrative: Abdomen is soft with normal active bowel sounds. No pain with palpation no voluntary guarding or rigidity. No pulsatile mass noted. Patient does have a fluid wave present to the lower half of his abdomen below the umbilicus Auscultation: normoactive bowel sounds Palpation: soft Narrative: Patient has diffuse scrotal swelling without ecchymosis or abrasions or secondary changes to suggest Messi's gangrene Back/Spine Back/Spine Narrative: No bony deformity or step-off of the thoracic or lumbar spine no midline pain on palpation Extremity Extremity Narrative: Patient has +3-4 pitting edema to the bilateral lower extremities that extends from the feet through the thigh into the lower abdomen consistent with anasarca. Negative Homans' sign bilaterally. Pelvis is stable there is no shortening or external rotation of either lower extremity Neuro oriented x3 and CN's II-XII intact bilaterally Sensorium / Orientation: alert Psych mental status grossly normal Skin Skin Narrative: Chronic stasis changes to the bilateral lower legs without secondary changes to suggest infection MDM MDM MDM Narrative Medical decision making narrative: Patient presented to the ER with stable vitals and he had no report or signs of head trauma. He reported a mechanical fall because he felt weak. With the diffuse anasarca found on exam I did elect to perform repeat lab work but I did not feel the need for a head CT as he denies striking his head had a mechanical fall and there is no signs of trauma on exam. Lab work showed chronic changes with a creatinine near his baseline at 2.49 with elevated sodium and decreased bicarb level. His chest x-ray showed mild vascular congestion but patient is able to lie flat speak in full sentences and his pulse ox is 98 to 100% on room air. At this time the patient's exam and symptoms seem to be chronic in nature. However because of his weakness he is not ambulating and is at risk for fall. I feel he needs more treatment and he can receive at home and will need extended care secondary to his anasarca. Therefore I contacted hospitalist about readmission and they accepted him at this time. Patient has agreed to placement in a snf facility if he qualifies. Lab Data Attestation: I reviewed the patient's lab results. Labs: Laboratory Results - last 24 hr 07/03/22 07/03/22 07/03/22 06:03 06:03 06:03 WBC 6.2 RBC 2.95 L Hgb 9.4 L Hct 29.6 L MCV 100.3 H MCH 31.9 MCHC 31.8 L RDW Std Deviation 60.8 H RDW Coeff of Rain 16.6 H Plt Count 106 L MPV 11.3 Immature Gran % (Auto) 2.400 H Neut % (Auto) 62.5 Lymph % (Auto) 27.6 [place] % (Auto) 6.1 Eos % (Auto) 0.8 Baso % (Auto) 0.6 Absolute Neuts (auto) 3.9 Absolute Lymphs (auto) 1.72 Nucleated RBC % 0 Sodium 149 H Potassium 3.8 Chloride 122 H Carbon Dioxide 17.0 L Anion Gap 10 BUN 72 H Creatinine 2.49 H Estim Creat Clear Calc 24.96 Est GFR (MDRD) Af Amer 32 L Est GFR (MDRD) Non-Af 26 L BUN/Creatinine Ratio 28.9 H Glucose 102 Calcium 7.5 L Magnesium 2.3 B-Natriuretic Peptide 542.6 H Radiography Diagnostic Testing: Clinical Impression(s) from Imaging Studies Pelvis X-Ray 07/03/22 05:19 IMPRESSION: No acute findings in the pelvis. No fracture identified. Electronically Signed: Teodoro Miller MD at 6:14 EST Reading Location ID and State: [id number] / , Service support , Chest X-Ray 07/03/22 05:40 IMPRESSION: Mild interstitial pulmonary edema. Electronically Signed: Teodoro Miller MD at 6:06 EST Reading Location ID and State: [place] / , Service support , 1 view pelvis x-ray as interpreted by the emergency medicine physician reveals no acute fracture or dislocation Chest x-ray as interpreted by the emergency medicine physician reveals mild interstitial edema without acute infiltrate or pneumothorax or pleural effusion. Discharge Plan Triage Chief Complaint: Other, Pain/Inj ED Provider: Victoriano Henry Dx/Rx/DC Orders Clinical Impression: Chronic kidney disease, Generalized weakness, Anasarca, Inability to walk Prescriptions: No Action sildenafil 100 mg tablet 100 mg PO DAILY PRN (Reason: sexual activity) Qty: 4 5RF Rx Instructions: administer 30 minutes to 4 hours before activity multivitamin with folic acid 1 TABLET tablet 2 tab PO DAILY Label Comments: vitamin omeprazole 40 MG capsule 40 mg PO DAILY Label Comments: ACID REFLUX tamsulosin 0.4 MG capsule 0.4 mg PO QHS acetaminophen 325 MG tablet 650 mg PO Q6H PRN PRN (Reason: Fever >100.4) 0RF aspirin 81 mg tablet,delayed release (DR/EC) 81 mg PO DAILY polysaccharide iron complex [Ferrex 150] 150 mg iron Capsule 150 mg PO DAILYCM 30 Days Qty: 30 0RF cyanocobalamin (vitamin B-12) 500 mcg Tablet 1,000 mcg PO BREAKFAST 30 Days Qty: 60 0RF amoxicillin-pot clavulanate [Augmentin] 500-125 mg tablet 1 tab PO Q12H Qty: 10 0RF Rx Instructions: Start the evening of 07/01. Take with food or milk Primary Care Provider: Lex Gold Referrals: Lex Gold MD [Primary Care Provider] - Disposition Disposition: Acute Care Hospital [facility]
--- NOTE | 2022-07-03 09:21 | HP.PCM.HOS_ITS ---
HPI - General General Date of Admission: 07/03/22 Date of Service: 07/03/22 Chief Complaint: Fall HPI Narrative 86-year-old male with a past medical history of GERD, CKD stage III, CAD status post PCI, valvular heart disease status post TAVR, chronic thrombocytopenia who presents to [facility] ED 07/03 due to a fall, diarrhea, swelling in lower extremities. He recently presented 06/26 with fever, confusion, myalgia, chills and developed an DELGADO, was treated for UTI and nephro consulted because of worsening kidney function which stabilized. There were multiple psychosocial issues surrounding multiple cats in the home and there is reluctance for him to return home because of this. Did not qualify for skilled needs at that time and also expressed desire to go home and as he was medically stable he was discharged home with family. He represented with the above complaints and further concerns that he cannot completely take care of himself at home. In the ED he did have elevated sodium, somewhat worsened creatinine, significant swelling, and recent fall. Did endorse when taking the Augmentin he has been having diarrhea, did have dark stools but did just begin taking iron supplementation. Urinating well. Trying to eat well, sounds as though difficulty remaining hydrated as he is drinking coffee and diet Pepsi as his fluid source. Diuretics were stopped last admission because he was intravascularly depleted and so he does have worsened peripheral edema that is better in the mornings and worsens throughout the day. Denies chest pain or shortness of breath. Has had some upper abdominal/lower thorax cramping at times. [facility] Medical History (Updated 07/03/22 @ 09:[address] Elvira Torres MD) Abdominal aortic aneurysm (AAA) Abdominal aortic aneurysm without rupture Atherosclerotic heart disease of [place] coronary artery without angina pectoris BPH (benign prostatic hyperplasia) CAD (coronary artery disease) Esophageal cancer Essential hypertension Gastric adenocarcinoma Gout History of left heart catheterization (LHC) (~06/26/19) HTN (hypertension) Hyperlipidemia Murmur, cardiac Non-rheumatic aortic stenosis Old myocardial infarction Presence of stent in coronary artery (~09/05/02) Sleep apnea Home Medications multivitamin with folic acid 400 mcg tablet 2 tab PO DAILY supplement 04/22/14 [History Last Taken 03/19/19] omeprazole 40 mg capsule,delayed release 40 mg PO DAILY GERD 06/30/16 [History Last Taken 06/26/19] tamsulosin 0.4 mg capsule 0.4 mg PO QHS BPH 05/26/17 [History Last Taken 06/24/22] acetaminophen 325 mg tablet 650 mg PO Q6H PRN PRN Fever >100.4 03/21/19 [Rx Last Taken Unknown] sildenafil 100 mg tablet 100 mg PO DAILY PRN sexual activity #4 tabs 11/17/21 [Rx Last Taken Unknown] aspirin 81 mg tablet,delayed release 81 mg PO DAILY heart health 06/26/22 [History Last Taken 06/24/22] amoxicillin 500 mg-potassium clavulanate 125 mg tablet (Augmentin) 1 tab PO Q12H #10 tabs 07/01/22 [Rx Last Taken Unknown] cyanocobalamin (vitamin B-12) 500 mcg tablet 1,000 mcg PO BREAKFAST 30 days #60 tabs 07/01/22 [Rx Last Taken Unknown] polysaccharide iron complex 150 mg iron capsule (Ferrex) 150 mg PO DAILYCM 30 days #30 caps 07/01/22 [Rx Last Taken Unknown] Allergy/AdvReac Type Severity Reaction Status Date / Time adhesive Allergy burn-like Verified 05/23/22 13:44 cortisone [Cortisone] Allergy Rash Verified 05/23/22 13:44 simvastatin AdvReac joint/muscle Verified 05/23/22 13:44 aches Family History (Updated 06/27/22 @ 02:[address] Beatriz Fernandes MD) Father Congestive heart failure Mother Colon cancer Surgical History H/O right inguinal hernia repair History of cholecystectomy History of cholecystectomy History of gastrectomy (~07/2014) Presence of coronary angioplasty implant and graft (~09/05/02) S/P TAVR (transcatheter aortic valve replacement) (~12/27/19) Social History (Updated 06/27/22 @ 02:[address] Beatriz Fernandes MD) household members: spouse Smoking Status: Former smoker how long ago did patient quit smoking: Quit ~20 yrs prior, smoked since late 20s until quit, pipe specifically. alcohol intake: never substance use type: does not use ROS Constitutional Constitutional: Reports other Details: Has intermittently felt cold Eyes Eyes: Reports other Details: Did not voice any complaints ENT HEENT: Reports other Details: Did not voice any complaints Cardiovascular Cardiovascular: Denies chest pain Respiratory/Chest Respiratory/Chest: Denies cough or shortness of breath at rest Gastrointestinal Gastrointestinal: Reports other Details: Some diarrhea and abdominal cramping Genitourinary Genitourinary: Reports other Details: Denies change in urination Musculoskeletal Musculoskeletal: Reports other Details: Left knee pain after fall Neurologic Neurologic: Reports other Details: Denies acute changes Psychiatric Psychiatric: Denies depression Hematologic/Lymphatic Hematologic/Lymphatic: Reports other Details: No new bleeding or bruising reported Allergic/Immunologic Allergic/Immunologic: Reports other Details: Denies any new rashes Vital Signs Vital Signs Vital Signs: 07/03/22 04:48 07/03/22 08:42 Temperature 98.2 F 97.2 F L Temperature Source Temporal Temporal Pulse Rate 74 75 Respiratory Rate 16 16 Blood Pressure 112/53 L 124/85 H Blood Pressure Mean 72 98 Pulse Ox 99 97 Oxygen Delivery Method Room Air Room Air Weight Weight: 86.4 kg Body Mass Index (BMI) 25.1 Physical Exam Const alert and oriented x3 HEENT normocephalic and head/scalp atraumatic Eyes PERRL Neck supple Resp normal respiratory effort and clear to auscultation bilaterally Cardio regular rate and regular rhythm GI soft to palpation, non-tender and non-distended Extremity Extremity Narrative: Moving all extremities, does have pitting edema 2-3+ in lower extremities with dependent edema up to buttock Neuro Neuro Narrative: No overt focal neurological deficits appreciated Psych affect normal Results Lab / Micro Data Result Diagrams: 07/03/22 06:03 07/03/22 06:03 Labs: Laboratory Results - last 24 hr 07/03/22 06:03: WBC 6.2, RBC 2.95 L, Hgb 9.4 L, Hct 29.6 L, MCV 100.3 H, MCH 31.9, MCHC 31.8 L, RDW Std Deviation 60.8 H, RDW Coeff of Rain 16.6 H, Plt Count 106 L, MPV 11.3, Immature Gran % (Auto) 2.400 H, Neut % (Auto) 62.5, Lymph % (Auto) 27.6, [place] % (Auto) 6.1, Eos % (Auto) 0.8, Baso % (Auto) 0.6, Absolute Neuts (auto) 3.9, Absolute Lymphs (auto) 1.72, Nucleated RBC % 0 11/20/22 06:03: Sodium 149 H, Potassium 3.8, Chloride 122 H, Carbon Dioxide 17.0 L, Anion Gap 10, BUN 72 H, Creatinine 2.49 H, Estim Creat Clear Calc 24.96, Est GFR (MDRD) Af Amer 32 L, Est GFR (MDRD) Non-Af 26 L, BUN/Creatinine Ratio 28.9 H, Glucose 102, Calcium 7.5 L, Magnesium 2.3 07/03/22 06:03: B-Natriuretic Peptide 542.6 H Radiology Impression Pelvis X-Ray 07/03/22 05:19 IMPRESSION: No acute findings in the pelvis. No fracture identified. Electronically Signed: Teodoro Miller MD at 6:14 EST Reading Location ID and State: [place] / , Service support , Chest X-Ray 07/03/22 05:40 IMPRESSION: Mild interstitial pulmonary edema. Electronically Signed: Teodoro Miller MD at 6:06 EST Reading Location ID and State: [place] / , Service support , Assessment & Plan Assessment/Plan (1) Chronic kidney disease: (2) Generalized weakness: (3) Diarrhea: PLAN: Plan #Intractable diarrhea Likely to Augmentin but given recent hospitalization and antibiotic use we will check stool studies Based on labs concerned he is possibly volume depleted but does have significant peripheral edema and some congestion on chest x-ray though BNP is very slightly decreased, await urine studies #Pitting edema In legs and dependent up to buttock Will implement wraps and leg elevation #Worsening kidney function on CKD stage IIIb Will obtain urine studies Low threshold to reconsult neurology if not improving with conservative measures #Fall Seem to be mechanical but there was concern about his mobility Will consult PT/OT Pelvis x-ray unremarkable #Recent UTI Had recommended 5 more days of antibiotics at discharge Seem to tolerate Rocephin well, will resume this for 3 more days #DVT ppx: Heparin Elvira Torres MD Charges/Coding Visit Charges OBSV E&M: 13205 Observation care discharge
[2022-07-03] MEDS: Ceftriaxone 1 GM/50 ML BAG IV (11:14)
--- NOTE | 2022-07-03 11:36 | NURSING ---
pt applied to telly on the floor. Monitor was alarming that his HR was in the low 40's. Pt asymptomatic. Jenifer SAM called and is up here to the floor going in room to do 12 lead ekg.
--- NOTE | 2022-07-03 11:37 | EKG12_ITS ---
Test Reason : ASYMPTOMATIC SALINAS Blood Pressure : / mmHG Vent. Rate : 077 BPM Atrial Rate : 077 BPM P-R Int : 184 ms QRS Dur : 144 ms QT Int : 454 ms P-R-T Axes : 075 047 063 degrees QTc Int : 513 ms Sinus rhythm with marked sinus arrhythmia with frequent Premature ventricular complexes Right bundle branch block Abnormal ECG Confirmed by NATALY ROLLE, RANDA ([id number]), general expeditor MARIA EUGENIA TAO ([id number]) on 07/05/2022 8:57:09 AM Referred By: LORENZO Confirmed By:RANDA INGRAM MD
[2022-07-03] MEDS: Heparin Injection (Vial) 5,000 UNIT/ML VIAL 5000 UNIT SC ×2 (11:59→22:04)
[2022-07-03] MEDS: Aspirin E.C. 81 MG Tablet PO (11:59)
[2022-07-03] MEDS: Pantoprazole Sodium 40 MG Tablet PO (11:59)
--- NOTE | 2022-07-03 12:42 | NURSING ---
Pts heart rate on monitor dropping in the low 40s upper 30s. Pt remains asymptomatic. made aware.
[2022-07-03] MEDS: Furosemide 20 MG/2 ML VIAL IV (13:26)
[2022-07-03] MEDS: 0.9% Saline Lock 10 ML Syringe IV ×2 (13:26→22:05)
[2022-07-03 13:54] LABS: Color, Urine Yellow (Yellow); Glucose, Dipstick Normal (Normal); Ketone-Dipstick Negative (Negative); Leukocyte Esterase-Dipstick 25 /ul (Negative); Nitrite-Dipstick Negative (Negative); Occult Blood-Urine 250 /ul (Negative); Protein-Dipstick 500 mg/dl (Negative); Urine Bilirubin Dipstick Negative (Negative); Urine Clarity Clear (Clear); Urine Urobilinogen Normal (Normal)
[2022-07-03 14:00] LABS: Urea Nitrogen, Urine 674 mg/dL (NO RANGE EST.)
[2022-07-03 14:03] LABS: Urine Chloride 24 mmol/L (Not Establ.); Urine Sodium 36 mmol/L (Not Establ.)
[2022-07-03 14:07] LABS: Osmolality, Urine 417 mOsm/KG
[2022-07-03] MEDS: Tamsulosin HCl 0.4 MG Capsule PO (22:04)
[2022-07-04] VITALS (15 sets, daily range): BP systolic 98–137; BP diastolic 64–92; PULSE 68–107; RESP 16–18; TEMP 36.5–36.8; O2SAT 96–98
[2022-07-04 06:20] LABS: Absolute Lymphocyte Count 1.34 X10^3/uL (0.83-4.51); Basophil# 0.05 X10^3/uL; Eosinophil# 0.11 X10^3/uL; Eosinophils% 2.2 % (0-5); Hematocrit 28.9 % (40-54); Hemoglobin 9.3 g/dL (13.0-16.5); Lymphocyte # 1.34 X10^3/ul (0.83-4.51); Lymphocyte % 27.4 % (19-41); Mean Corp Hgb Conc 32.2 g/dL (32-36); Mean Corpuscular Hgb 32.4 pg (27.0-32.0); Mean Corpuscular Volume 100.7 fL (80-94); Mean Platelet Vol. 11.1 fl (6.2-12.0); Monocyte# 0.26 X10^3/uL; Monocyte% 5.3 % (0-10); NRBC Flagged by Analyzer 0 % (0-5); Neutrophil # 2.97 X10^3/uL (2.7-7.7); Neutrophil % 60.8 % (47-70); Platelet Count 121 K/mm3 (150-450); RBC Distribution Width CV 16.5 % (11.6-14.6); RBC Distribution Width SD 61.8 fl (35.1-43.9); Red Blood Count 2.87 M/mm3 (4.6-6.2); White Blood Count 4.9 K/mm3 (4.4-11.0)
[2022-07-04 06:51] LABS: ALB/GLOB Ratio 0.4 RATIO (0.9-2.4); AST(SGOT) 57 U/L (15-37); Alanine Aminotransfer ALT/SGPT 55 U/L (16-61); Albumin, Serum 1.4 g/dL (3.2-5.0); Alkaline Phosphatase 292 U/L (45-117); Anion Gap 9 (5-15); BUN 69 mg/dL (7-18); BUN/Creat Ratio 29.4 RATIO (10-20); Calcium,Total 7.3 mg/dL (8.5-10.1); Chloride 122 mmol/L (98-107); Cholesterol 106 mg/dL (200); Creatinine, Serum 2.35 mg/dL (0.70-1.30); EST Glomerular Filtration Rate 28 mL/min (>60); Est Glom Filt Rate - Afr Amer 34 mL/min (>60); Estimated Creatinine Clearance 26.44 ml/min; Globulin 3.7 g/dL (2.2-4.2); Glucose 90 mg/dL (74-106); High Density Lipoprotein 24 mg/dL; Magnesium 2.1 mg/dL (1.6-2.6); Potassium 3.9 mmol/L (3.5-5.1); Protein, Total 5.1 g/dL (6.4-8.2); Sodium Level 148 mmol/L (136-145); Triglycerides 169 mg/dL; Very Low Density Lipoprotein 34 mg/dL (5-40)
[2022-07-04] MEDS: Acetaminophen 325 MG Tablet 650 MG PO (08:15)
[2022-07-04] MEDS: Aspirin E.C. 81 MG Tablet PO (08:15)
[2022-07-04] MEDS: Cyanocobalamin 500 MCG Tablet 1000 MCG PO (08:16)
--- NOTE | 2022-07-04 08:58 | PN.HOSP_ITS ---
Subjective Subjective Feels well. Edema in lower legs improved Objective Data Objective Data Vital Signs: Vital Signs Temp Pulse Resp BP Pulse Ox O2 Del Method 36.8 C 87 18 103/73 97 Room Air 07/04/22 08:01 07/04/22 08:01 07/04/22 08:01 07/04/22 08:01 07/04/22 08:01 07/04/22 08:04 Oxygen Delivery Method Room Air Weight: 86 kg Body Mass Index (BMI) 25.1 Intake & Output: Intake and Output for Last 24 Hours 07/02/22 07/03/22 07/04/22 23:59 23:59 23:59 Intake Total 400 / 900 500 / 500 Output Total 1600 / 1800 700 / 700 Balance -1200 / -900 -200 / -200 Lab / Micro Data Result Diagrams: 07/04/22 05:15 07/04/22 05:15 Labs: Laboratory Results - last 24 hr 07/02/22 13:06: Urine Osmolality 417 07/03/22 13:05: Urine Color Yellow, Urine Clarity Clear, Urine pH 5.0, Ur Specific [place] 1.020, Urine Protein 500 H, Urine Glucose (UA) Normal, Urine Ketones Negative, Urine Occult Blood 250 H, Urine Nitrite Negative, Urine Bilirubin Negative, Urine Urobilinogen Normal, Ur Leukocyte Esterase 25 H 07/03/22 13:05: Ur Random Sodium 36, Urine Creatinine 103.00, Urine Potassium 24.0, Urine Chloride 24 07/03/22 13:05: Urine Urea Nitrogen 674 07/04/22 05:15: WBC 4.9, RBC 2.87 L, Hgb 9.3 L, Hct 28.9 L, MCV 100.7 H, MCH 32.4 H, MCHC 32.2, RDW Std Deviation 61.8 H, RDW Coeff of Rain 16.5 H, Plt Count 121 L, MPV 11.1, Immature Gran % (Auto) 3.300 H, Neut % (Auto) 60.8, Lymph % (Auto) 27.4, [place] % (Auto) 5.3, Eos % (Auto) 2.2, Baso % (Auto) 1.0, Absolute Neuts (auto) 3.0, Absolute Lymphs (auto) 1.34, Nucleated RBC % 0 07/04/22 05:15: Sodium 148 H, Potassium 3.9, Chloride 122 H, Carbon Dioxide 17.0 L, Anion Gap 9, BUN 69 H, Creatinine 2.35 H, Estim Creat Clear Calc 26.44, Est GFR (MDRD) Af Amer 34 L, Est GFR (MDRD) Non-Af 28 L, BUN/Creatinine Ratio 29.4 H , Glucose 90, Calcium 7.3 L, Magnesium 2.1, Total Bilirubin 0.30, AST 57 H, ALT 55, Alkaline Phosphatase 292 H, Total Protein 5.1 L, Albumin 1.4 L, Globulin 3.7, Albumin/Globulin Ratio 0.4 L, Triglycerides 169, Cholesterol 106, LDL Cholesterol 48, VLDL Cholesterol 34, HDL Cholesterol 24 L Physical Exam Const alert and no apparent distress HEENT head/scalp atraumatic and moist oral mucous membranes Resp normal respiratory effort and no retractions Cardio regular rate, regular rhythm, S1 normal heart sound and S2 normal heart sound GI normal to inspection, nondistended, normoactive bowel sounds and soft to palpation Neuro oriented x3 Assessment & Plan Assessment/Plan (1) Chronic kidney disease: QUALIFIERS: Chronic kidney disease stage: stage 4 (severe) Qualified Code(s): N18.4 - Chronic kidney disease, stage 4 (severe) PLAN: Non-oliguric. Stable from last admission, but up from May. FeNa 0.55%, CW prerenal azotemia Check labs. (2) C. difficile colitis: PLAN: Positive antigen Start vancomycin (3) Generalized weakness: PLAN: PT OT may need SNF upon discharge (4) Severe protein-calorie malnutrition: PLAN: Albumin 1.4 Nutrition on consult supplements PLAN: Plan #Pitting edema In legs and dependent up to buttock Will implement wraps and leg elevation #Recent UTI Had recommended 5 more days of antibiotics at discharge Seem to tolerate Rocephin well, will resume this for 3 more days #DVT ppx: Heparin Charges/Coding Visit Charges Inpatient E&M: 95741 Subs Hosp L2
[2022-07-04] MEDS: 0.9% Saline Lock 10 ML Syringe IV ×3 (10:55→14:02)
--- NOTE | 2022-07-04 11:15 | CASEMGMT ---
RN NOELLE Readmission Note Previous Admission:?06/26/2022-07/01/2022 Diagnosis:?viral syndrome, DELGADO DC Disposition: Home with?[facility] SN, PT, OT and RN DIGESTIVE; APS referral Current Admission? Current Diagnosis: diarrhea, worsening kidney function 86-year-old male with a past medical history of GERD, CKD stage III, CAD status post PCI, valvular heart disease status post TAVR, chronic thrombocytopenia who presents to [facility] ED 07/03 due to a fall, diarrhea, swelling in lower extremities. He recently presented 06/26 with fever, confusion, myalgia, chills and developed an DELGADO, was treated for UTI and nephro consulted because of worsening kidney function which stabilized. Pt had dc'd home with [facility]. from [facility] saw pt on Monday at home. RJ DRAKE in to pt room, pt sitting up in chair and dtr Isabel and son in law came in to visit during assessment. Pt agreeable to discussion to continue with family present. Pt states that he feels he overdid it on day of dc stating he went to the [employer] to take care of financial business. Pt states he wants to return back home with the [facility]. Discussed with patient the option of s/t therapy in a facility as the last dc was unsuccessful. Pt states he wants to return home to be with his . He is agreeable to having AL information given to him as he was looking into [place]. Updated SW. Pt family in room stating they feel pt needs to go to SNF. Asked pt if he would like to discuss with his family and RJ DRAKE to check back. Pt states he will discuss with his and they will make the decision and they will let the family know. Pt speaks of 24 hour nurse at the home. Made pt aware this is not what this RN CM set up for him at last dc. Discussed expectations of [facility] including visit frequencies (not daily) and approximate duration (not for hours at a time). Discussed private duty options but that it is paid privately. Pt states his family did clean up his house. He reports he was taking his medications as ordered. At this time, pt wants to return home with [facility] resuming. DC Plan: Resume [facility]
[2022-07-04] MEDS: Pantoprazole Sodium 40 MG Tablet PO (11:36)
[2022-07-04] MEDS: Heparin Injection (Vial) 5,000 UNIT/ML VIAL 5000 UNIT SC ×2 (11:36→21:34)
[2022-07-04] MEDS: Ceftriaxone 1 GM/50 ML BAG IV (12:52)
[2022-07-04] MEDS: Ensure Plus High Protein 120 ML LIQUID PO ×2 (12:56→17:51)
--- NOTE | 2022-07-04 15:26 | CASEMGMT ---
Social Work SW met with pt and dgt Isabel and were in the room. Pt gave permission for SW to speak in front of family. SW spent time with pt explaining SNF, assisted living, home health and private duty aids. Pt uncertain of discharge plan as he is concerned about . Extensive time spent with pt discussing options and providing support. A list of SNF providers including quality and resource use data and consistent with the patient?s preferred geographic region, medical needs, and insurance network were provided from [facility]. SW also provided a list of local Assisted Livings, Care Patrol information and Private Duty companies. Pt dgt Shelli called SW for update. Pt gave permission for SW to speak with Shelli. SW explained discharge options as presented to pt and that pt is considering SNF. SW will followup with pt after he has time to consider options. SW returned to pt room at this time. Dgts Isabel Marques, and Sweetie in room and pt states he has decided on SNF and preferred provider is [facility]. Second choice is [place], but pt states he is not certain about that choice. Ivy d/c early childhood assistant, updated and to send referral to [facility]. Plan: [facility] Umanzor, Pending acceptance and precert SEBAS Connor
--- NOTE | 2022-07-04 15:42 | CASEMGMT ---
Discharge Coding Analyst This lead technical writer sent referral to Geeta at [facility]. Abbey PACK Paper Tube Machine Operator
[2022-07-04] MEDS: Vancomycin 125 MG/5 ML Susp PO.SYRINGE PO ×2 (17:51→23:33)
[2022-07-04 18:10] LABS: 24HR. UA Prot. Total Volume 1050 mL
[2022-07-04 19:03] LABS: 24 Hour Urine Protein 3075.5 mg/24HR (<150 MG/24HR); Urine Protein (24 Hour) 292.9 mg/dL (<11.9)
[2022-07-04] MEDS: Tamsulosin HCl 0.4 MG Capsule PO (21:34)
--- NOTE | 2022-07-04 22:00 | NURSING ---
PT HAS SCHEDULED TYLENOL DUE @ 2200 - DAY SHIFT TYLENOL DOSES GOT OFF SCHEDULE - SO EMAR SHOWS THAT PT WILL BE OVER THE ACETAMINOPHEN LIMIT BY 300MG. DR BARNES AWARE & OK TO GIVE DOES.
[2022-07-05] VITALS (11 sets, daily range): BP systolic 110–127; BP diastolic 73–87; PULSE 86–100; RESP 18–24; TEMP 36.7–37.1; O2SAT 92–98
[2022-07-05] MEDS: Vancomycin 125 MG/5 ML Susp PO.SYRINGE PO ×2 (06:21→10:56)
[2022-07-05 06:36] LABS: Absolute Neutrophil Count 3.3 X10^3/uL (2.0-7.7); Basophil# 0.03 X10^3/uL; Basophil% 0.6 % (0-1); Eosinophil# 0.11 X10^3/uL; Hematocrit 27.7 % (40-54); Hemoglobin 9.2 g/dL (13.0-16.5); Lymphocyte % 29.4 % (19-41); Mean Corp Hgb Conc 33.2 g/dL (32-36); Mean Corpuscular Volume 99.3 fL (80-94); Monocyte# 0.28 X10^3/uL; Monocyte% 5.1 % (0-10); NRBC Flagged by Analyzer 0 % (0-5); Neutrophil # 3.28 X10^3/uL (2.7-7.7); Neutrophil % 60.1 % (47-70); Platelet Count 126 K/mm3 (150-450); RBC Distribution Width CV 16.6 % (11.6-14.6); Red Blood Count 2.79 M/mm3 (4.6-6.2); White Blood Count 5.5 K/mm3 (4.4-11.0)
[2022-07-05 07:01] LABS: Anion Gap 12 (5-15); BUN 69 mg/dL (7-18); BUN/Creat Ratio 29.5 RATIO (10-20); Calcium,Total 7.3 mg/dL (8.5-10.1); Chloride 117 mmol/L (98-107); Creatinine, Serum 2.34 mg/dL (0.70-1.30); EST Glomerular Filtration Rate 28 mL/min (>60); Est Glom Filt Rate - Afr Amer 34 mL/min (>60); Estimated Creatinine Clearance 26.56 ml/min; Glucose 95 mg/dL (74-106); Potassium 4.3 mmol/L (3.5-5.1); Sodium Level 145 mmol/L (136-145)
--- NOTE | 2022-07-05 07:23 | PCM.PN.HOSP ---
Subjective Subjective Feels ok. Eating some food. No nausea. Objective Data Objective Data Vital Signs: Vital Signs Temp Pulse Resp BP Pulse Ox O2 Del Method 36.8 C 99 18 127/87 H 96 Room Air 07/05/22 04:42 07/05/22 06:00 07/05/22 04:42 07/05/22 04:42 07/05/22 04:42 07/05/22 04:42 Oxygen Delivery Method Room Air Weight: 85.8 kg Body Mass Index (BMI) 25.1 Intake & Output: Intake and Output for Last 24 Hours 07/03/22 07/04/22 07/05/22 23:59 23:59 23:59 Intake Total 400 / 900 1300 / 1300 220 / 220 Output Total 1600 / 1800 700 / 700 450 / 450 Balance -1200 / -900 600 / 600 -230 / -230 Lab / Micro Data Result Diagrams: 07/05/22 05:25 07/05/22 05:25 Labs: Laboratory Results - last 24 hr 07/04/22 17:00: Urine Collection Time 24.0, Timed Urine Volume 1050, Ur Total Protein 24 Hr 3075.5 H, Urine Total Protein 292.9 H 07/05/22 05:25: WBC 5.5, RBC 2.79 L, Hgb 9.2 L, Hct 27.7 L, MCV 99.3 H, MCH 33.0 H, MCHC 33.2, RDW Std Deviation 60.0 H, RDW Coeff of Rain 16.6 H, Plt Count 126 L, MPV 11.0, Immature Gran % (Auto) 2.800 H, Neut % (Auto) 60.1, Lymph % (Auto) 29.4, Russell % (Auto) 5.1, Eos % (Auto) 2.0, Baso % (Auto) 0.6, Absolute Neuts (auto) 3.3, Absolute Lymphs (auto) 1.60, Nucleated RBC % 0 07/05/22 05:25: Sodium 145, Potassium 4.3, Chloride 117 H, Carbon Dioxide 16.0 L, Anion Gap 12, BUN 69 H, Creatinine 2.34 H, Estim Creat Clear Calc 26.56, Est GFR (MDRD) Af Amer 34 L, Est GFR (MDRD) Non-Af 28 L, BUN/Creatinine Ratio 29.5 H, Glucose 95, Calcium 7.3 L Micro: Microbiology 07/03/22 13:30 Stool C. difficile GDH Antigen & Toxins - Final 07/03/22 13:30 Stool C. difficile DNA Amplification - Final 07/02/22 13:30 Stool Enteric Bacteriology - Final Physical Exam Const alert and no apparent distress Resp normal respiratory effort, no retractions, no use of accessory muscles and clear to auscultation bilaterally Cardio regular rate, regular rhythm and S1 normal heart sound GI normal to inspection, nondistended, normoactive bowel sounds, soft to palpation, non-tender and non-distended Assessment & Plan Assessment/Plan (1) Chronic kidney disease: QUALIFIERS: Chronic kidney disease stage: stage 4 (severe) Qualified Code(s): N18.4 - Chronic kidney disease, stage 4 (severe) PLAN: Non-oliguric. Stable from last admission, but up from May. FeNa 0.55%, CW prerenal azotemia Currently stable though slightly improved from his creatinine of 2.49 on the . His creatinine was 1.19 on May 23. Patient did have an ultrasound of his kidneys on 28 June that showed bilateral renal cysts and a small nonobstructive left intrarenal calculi. Would just continue to monitor for now. (2) C. difficile colitis: PLAN: Positive antigen Continue vancomycin 125 QID through 07/13. (3) Generalized weakness: PLAN: PT OT may need SNF upon discharge (4) Severe protein-calorie malnutrition: PLAN: Albumin 1.4 Nutrition on consult supplements (5) UTI (urinary tract infection): PLAN: Reviewed the urinalysis from the and only showed 0-5 white cells though did show 2+ bacteria and a culture showed mixed gram-positive organisms. Therefore, I feel the patient did not have a urinary tract infection on the and a urinary tract infection has been ruled out Discontinue antibiotics based on that but also the fact the patient does have active C. difficile (6) Macrocytic anemia: PLAN: Hemoglobin has dropped from 12.7 on June 26-9.2 though it has been stable over the past few days. MCV is been elevated around 100 B12, Folate WNL. TSH up slightly, but FT4 WNL. FT3 low. Monitor. 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 PLAN: Plan #Pitting edema In legs and dependent up to buttock Will implement wraps and leg elevation #DVT ppx: Heparin Debility: plan for SNF. Awaiting on insurance authorization. DW pt's sons. Charges/Coding Visit Charges Inpatient E&M: 11688 Subs Hosp L2
[2022-07-05 08:07] LABS: Ferritin 577 ng/mL (26-388); Iron 64 ug/dL (65-175); Iron Binding Capacity,Total 129 ug/dL (250-450); PERCENT IRON SATURATION 49.6 % (15.0-55.0); Thyroid Stim Hormone (TSH) 4.17 uIU/mL (0.358-3.74)
[2022-07-05 08:48] LABS: Vitamin B12 421 pg/mL (211-911)
[2022-07-05] MEDS: Cyanocobalamin 500 MCG Tablet 1000 MCG PO (08:55)
[2022-07-05] MEDS: Aspirin E.C. 81 MG Tablet PO (08:55)
[2022-07-05] MEDS: Heparin Injection (Vial) 5,000 UNIT/ML VIAL 5000 UNIT SC (08:56)
[2022-07-05] MEDS: Pantoprazole Sodium 40 MG Tablet PO (08:56)
--- NOTE | 2022-07-05 09:24 | CASEMGMT ---
Discharge Station Baggage Porter Patient has been accepted at [facility]. NUHA Pitts notified. Abbey PACK Assembler Skylights
--- NOTE | 2022-07-05 10:11 | CASEMGMT ---
Discharge Hothouse Worker Fortunato Umanzor will start pre-cert today. Abbey PACK Instrument Operator
[2022-07-05] MEDS: Ensure Clear 120 ML Liquid PO (10:55)
[2022-07-05 12:49] LABS: Free T3 0.8 pg/mL (2.18-3.98); T4 Free Direct 1.04 ng/dL (0.76-1.46)
--- NOTE | 2022-07-05 14:39 | CASEMGMT ---
Discharge Homemaking Rehabilitation Consultant Fortunato Umanzor reached out. Pre-cert has been obtained. NUHA Pitts notified and Dr. Santoro. Abbey PACK Triage Specialist
--- NOTE | 2022-07-05 15:00 | PCM.TXEXTCAR ---
Diet Diet Order/Speech Therapy: 07/03/22 16:11 Diet: Sodium Restricted (MOD) Dietary Modifications:: Sodium Restricted Is pt able to select menu?: Yes Diet Comments: 2g sodium Routine Orders/Code Status Routine Lab Work: CBC (weekly) and BMP (weekly) Code Status: Full Code Wound(s) bilateral lower leg: Wound Type: Abrasion buttocks: Wound Type: Pressure Injury Therapies Weight Bearing: Full weight bearing Physical Therapy: Eval and Treat Occupational Therapy: Eval and Treat Problem/Diagnosis (1) Chronic kidney disease: Status: Chronic Code(s): N18.9 - Chronic kidney disease, unspecified Plan: Non-oliguric. Stable from last admission, but up from May. FeNa 0.55%, CW prerenal azotemia Currently stable though slightly improved from his creatinine of 2.49 on the . His creatinine was 1.19 on May 23. Patient did have an ultrasound of his kidneys on 28 June that showed bilateral renal cysts and a small nonobstructive left intrarenal calculi. Would just continue to monitor for now. (2) C. difficile colitis: Status: Acute Code(s): A04.72 - Enterocolitis due to Clostridium difficile, not specified as recurrent Plan: Positive antigen Continue vancomycin 125 QID through 07/13. (3) Generalized weakness: Status: Acute Code(s): R53.1 - Weakness Plan: PT OT may need SNF upon discharge (4) Severe protein-calorie malnutrition: Status: Acute Code(s): E43 - Unspecified severe protein-calorie malnutrition Plan: Albumin 1.4 Nutrition on consult supplements (5) UTI (urinary tract infection): Status: Acute Code(s): N39.0 - Urinary tract infection, site not specified Plan: Reviewed the urinalysis from the and only showed 0-5 white cells though did show 2+ bacteria and a culture showed mixed gram-positive organisms. Therefore, I feel the patient did not have a urinary tract infection on the and a urinary tract infection has been ruled out Discontinue antibiotics based on that but also the fact the patient does have active C. difficile (6) Macrocytic anemia: Status: Acute Code(s): D53.9 - Nutritional anemia, unspecified Plan: Hemoglobin has dropped from 12.7 on June 26-9.2 though it has been stable over the past few days. MCV is been elevated around 100 B12, Folate WNL. TSH up slightly, but FT4 WNL. FT3 low. Monitor. 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 Plan #Pitting edema In legs and dependent up to buttock Will implement wraps and leg elevation Allergies/Procedures Done in Hospital Allergies adhesive Allergy (Verified 05/23/22 13:44) burn-like needs paper tape cortisone [Cortisone] Allergy (Verified 05/23/22 13:44) Rash simvastatin Adverse Reaction (Verified 05/23/22 13:44) joint/muscle aches Type of Care/Length of Stay Estimated LOS: Convalescent Care Less Than 30 days Type of Care Needed: Skilled Rehab Potential: Fair Prognosis: Good Additional Orders/Day of Discharge Day of Discharge: 07/05/22 Dietary and Speech Recommendations Dietitian Recommendations/Changes: Will change diet to cardiac/sodium-restricted; fluid restriction as needed per physician. Will d/c ensure plus w/ medpass as it is not warranted at this time. Discharge Plan Admission Admit Date/Time: 07/03/22 11:23 Primary Reason for Your Visit: C.chapincito Attending Provider: Bin Santoro Primary Care Provider: Lex Gold Consulting Providers: Elvira Torres Discharge Orders/Prescriptions Prescriptions: New Ensure Clear Liquid 120 ml PO TIDCM Qty: 0 0RF Firvanq 25 mg/mL Recon Soln 125 mg PO Q6 8 Days Qty: 160 0RF Continued multivitamin with folic acid 1 TABLET tablet 2 tab PO DAILY Label Comments: vitamin omeprazole 40 MG capsule 40 mg PO DAILY Label Comments: ACID REFLUX tamsulosin 0.4 MG capsule 0.4 mg PO QHS acetaminophen 325 MG tablet 650 mg PO Q6H PRN PRN (Reason: Fever >100.4) 0RF aspirin 81 mg tablet,delayed release (DR/EC) 81 mg PO DAILY polysaccharide iron complex [Ferrex 150] 150 mg iron Capsule 150 mg PO DAILYCM 30 Days Qty: 30 0RF cyanocobalamin (vitamin B-12) 500 mcg Tablet 1,000 mcg PO BREAKFAST 30 Days Qty: 60 0RF Discontinued sildenafil 100 mg tablet 100 mg PO DAILY PRN (Reason: sexual activity) Qty: 4 5RF Rx Instructions: administer 30 minutes to 4 hours before activity amoxicillin-pot clavulanate [Augmentin] 500-125 mg tablet 1 tab PO Q12H Qty: 10 0RF Rx Instructions: Start the evening of 07/01. Take with food or milk Referrals / Follow Up: Lex Gold MD [Primary Care Provider] - Within 2 Weeks Disposition Disposition (needs filled in before D/C Order can be placed): Penitentiary Facility (1) Chronic kidney disease Qualifiers: Chronic kidney disease stage: stage 4 (severe) Qualified Code(s): N18.4 - Chronic kidney disease, stage 4 (severe)
--- NOTE | 2022-07-05 15:09 | DS.PCM_ITS ---
Providers Date of Admission: 07/03/22 Primary Care Physician: Dr. Lex Gold MD Reason For Visit: DIARRHEA, WORSENING KIDNEY FUNCTION Diagnosis Discharge Diagnosis (1) Chronic kidney disease: Status: Chronic Code(s): N18.9 - Chronic kidney disease, unspecified Qualifiers: Chronic kidney disease stage: stage 4 (severe) Qualified Code(s): N18.4 - Chronic kidney disease, stage 4 (severe) Plan: Non-oliguric. Stable from last admission, but up from May. FeNa 0.55%, CW prerenal azotemia Currently stable though slightly improved from his creatinine of 2.49 on the . His creatinine was 1.19 on May 23. Patient did have an ultrasound of his kidneys on 28 June that showed bila teral renal cysts and a small nonobstructive left intrarenal calculi. Would just continue to monitor for now. (2) C. difficile colitis: Status: Acute Code(s): A04.72 - Enterocolitis due to Clostridium difficile, not specified as recurrent Plan: Positive antigen Continue vancomycin 125 QID through 07/13. (3) Generalized weakness: Status: Acute Code(s): R53.1 - Weakness Plan: PT OT may need SNF upon discharge (4) Severe protein-calorie malnutrition: Status: Acute Code(s): E43 - Unspecified severe protein-calorie malnutrition Plan: Albumin 1.4 Nutrition on consult supplements (5) UTI (urinary tract infection): Status: Acute Code(s): N39.0 - Urinary tract infection, site not specified Plan: Reviewed the urinalysis from the and only showed 0-5 white cells though did show 2+ bacteria and a culture showed mixed gram-positive organisms. Therefore, I feel the patient did not have a urinary tract infection on the and a urinary tract infection has been ruled out Discontinue antibiotics based on that but also the fact the patient does have active C. difficile (6) Macrocytic anemia: Status: Acute Code(s): D53.9 - Nutritional anemia, unspecified Plan: Hemoglobin has dropped from 12.7 on June 26-9.2 though it has been stable over the past few days. MCV is been elevated around 100 B12, Folate WNL. TSH up slightly, but FT4 WNL. FT3 low. Monitor. 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 Plan #Pitting edema In legs and dependent up to buttock Will implement wraps and leg elevation Patient also with scrotal edema. The scrotal edema is not consistent with cellulitis nor any urologic process but rather due to his anasarca. Patient will need optimization of his nutritional status. Discussed with the patient's sons today. Plan is for the patient to go to long term facility. Medications at Discharge Home Medications multivitamin with folic acid 400 mcg tablet 2 tab PO DAILY supplement 04/22/14 omeprazole 40 mg capsule,delayed release 40 mg PO DAILY GERD 06/30/16 tamsulosin 0.4 mg capsule 0.4 mg PO QHS BPH 05/26/17 acetaminophen 325 mg tablet 650 mg PO Q6H PRN PRN Fever >100.4 03/21/19 aspirin 81 mg tablet,delayed release 81 mg PO DAILY heart health 06/26/22 cyanocobalamin (vitamin B-12) 500 mcg tablet 1,000 mcg PO BREAKFAST 30 days #60 tabs 07/01/22 polysaccharide iron complex 150 mg iron capsule (Ferrex) 150 mg PO DAILYCM 30 days #30 caps 07/01/22 food supplemt, lactose-reduced (Ensure Clear oral liquid) 120 ml PO TIDCM #0 mL 07/05/22 vancomycin 25 mg/mL oral solution (Firvanq) 125 mg (5 mL) PO Q6 8 days #160 mL 07/05/22 Hospital Course Operations None Procedures None Summary of Care Provided Minutes Spent on Discharge: 35 Physical Exam Narrative Please refer to the other physical exam on the progress note from today for further details. Did note the patient did have diffuse testicular swelling. Nontender, no erythema. Weight / BMI Weight Weight: 85.8 kg Body Mass Index (BMI) 25.1 ABG / Lab / Microbiology Data Result Diagrams: 07/05/22 05:25 07/05/22 05:25 Laboratory: Laboratory Results - last 24 hr 07/04/22 17:00: Urine Collection Time 24.0, Timed Urine Volume 1050, Ur Total Protein 24 Hr 3075.5 H, Urine Total Protein 292.9 H 07/05/22 05:25: WBC 5.5, RBC 2.79 L, Hgb 9.2 L, Hct 27.7 L, MCV 99.3 H, MCH 33.0 H, MCHC 33.2, RDW Std Deviation 60.0 H, RDW Coeff of Rain 16.6 H, Plt Count 126 L , MPV 11.0, Immature Gran % (Auto) 2.800 H, Neut % (Auto) 60.1, Lymph % (Auto) 29.4, [place] % (Auto) 5.1, Eos % (Auto) 2.0, Baso % (Auto) 0.6, Absolute Neuts (auto) 3.3, Absolute Lymphs (auto) 1.60, Nucleated RBC % 0 07/05/22 05:25: Sodium 145, Potassium 4.3, Chloride 117 H, Carbon Dioxide 16.0 L , Anion Gap 12, BUN 69 H, Creatinine 2.34 H, Estim Creat Clear Calc 26.56, Est GFR (MDRD) Af Amer 34 L, Est GFR (MDRD) Non-Af 28 L, BUN/Creatinine Ratio 29.5 H , Glucose 95, Calcium 7.3 L 07/05/22 05:25: Iron 64 L, TIBC 129 L, Iron Saturation 49.6, Ferritin 577 H, Folate 14.90, TSH 4.17 H 07/05/22 05:25: Vitamin B12 421 07/05/22 05:25: Free T4 1.04, Free T3 pg/dL 0.8 L Microbiology: Microbiology 07/03/22 13:30 Stool C. difficile GDH Antigen & Toxins - Final 07/03/22 13:30 Stool C. difficile DNA Amplification - Final 07/02/22 13:30 Stool Enteric Bacteriology - Final Meaningful Use Info Meaningful Use Diagnoses (Choose all that apply): None applicable Discharge Plan Admission Admit Date/Time: 07/03/22 11:23 Primary Reason for Your Visit: C.diff Attending Provider: Bin Santoro Primary Care Provider: Lex Gold Consulting Providers: Elvira Torres Discharge Orders/Prescriptions Prescriptions: New Ensure Clear Liquid 120 ml PO TIDCM Qty: 0 0RF Firvanq 25 mg/mL Recon Soln 125 mg PO Q6 8 Days Qty: 160 0RF Continued multivitamin with folic acid 1 TABLET tablet 2 tab PO DAILY Label Comments: vitamin omeprazole 40 MG capsule 40 mg PO DAILY Label Comments: ACID REFLUX tamsulosin 0.4 MG capsule 0.4 mg PO QHS acetaminophen 325 MG tablet 650 mg PO Q6H PRN PRN (Reason: Fever >100.4) 0RF aspirin 81 mg tablet,delayed release (DR/EC) 81 mg PO DAILY polysaccharide iron complex [Ferrex 150] 150 mg iron Capsule 150 mg PO DAILYCM 30 Days Qty: 30 0RF cyanocobalamin (vitamin B-12) 500 mcg Tablet 1,000 mcg PO BREAKFAST 30 Days Qty: 60 0RF Discontinued sildenafil 100 mg tablet 100 mg PO DAILY PRN (Reason: sexual activity) Qty: 4 5RF Rx Instructions: administer 30 minutes to 4 hours before activity amoxicillin-pot clavulanate [Augmentin] 500-125 mg tablet 1 tab PO Q12H Qty: 10 0RF Rx Instructions: Start the evening of 07/01. Take with food or milk Referrals / Follow Up: Lex Gold MD [Primary Care Provider] - Within 2 Weeks Disposition Disposition (needs filled in before D/C Order can be placed): [facility] Facility Charges/Coding Visit Charges Inpatient E&M: 15953 Disch Hosp
--- NOTE | 2022-07-05 15:21 | PHA.DC.MR ---
Pharmacy Service has performed discharge medication reconciliation for this patient. The patient's discharge medication list was reviewed for discrepancies and discrepancies were resolved. Home Medications multivitamin with folic acid 400 mcg tablet 2 tab PO DAILY supplement 04/22/14 omeprazole 40 mg capsule,delayed release 40 mg PO DAILY GERD 06/30/16 tamsulosin 0.4 mg capsule 0.4 mg PO QHS BPH 05/26/17 acetaminophen 325 mg tablet 650 mg PO Q6H PRN PRN Fever >100.4 03/21/19 aspirin 81 mg tablet,delayed release 81 mg PO DAILY heart health 06/26/22 cyanocobalamin (vitamin B-12) 500 mcg tablet 1,000 mcg PO BREAKFAST 30 days #60 tabs 07/01/22 polysaccharide iron complex 150 mg iron capsule (Ferrex) 150 mg PO DAILYCM 30 days #30 caps 07/01/22 food supplemt, lactose-reduced (Ensure Clear oral liquid) 120 ml PO TIDCM #0 mL 07/05/22 vancomycin 25 mg/mL oral solution (Firvanq) 125 mg (5 mL) PO Q6 8 days #160 mL 07/05/22
--- NOTE | 2022-07-05 15:50 | CASEMGMT ---
Social Work? NUHA notified pt and pt family of discharge to [facility] today. NUHA completed 7000 convalescent form in [employer]. Set up wheelchair transportation through [facility] for 6pm. NUHA faxed all discharge orders to [facility] via [employer] and notified of discharge time. NUHA notified pt nurse of transport time. NUHA made copies of discharge orders and placed on pt chart. Sent original orders in envelope with pt upon discharge.?? Disposition: [facility], skilled, convalescent, level of care? SEBAS Infante?
--- NOTE | 2022-07-05 15:50 | CASEMGMT ---
Notified Nandini at [facility] that pt will be dc'ing to [facility] today.
[2022-07-05 15:53] LABS: ANTINUCLEAR ANTIBODIES DIRECT Negative (Negative)
[2022-07-05 16:28] LABS: Complement C3 72 mg/dL (82-167)
--- NOTE | 2022-07-05 17:21 | NURSING ---
REPORT CALLED TO [facility] AND SPOKE WITH GABE BUNDY
== END 2022-07-05 18:15 | disposition skilled nursing facility (03) | DRG 371 ==
LOC: ED 08:43 → MS3 09:31
PROVIDERS: Admitting Provider Internal Medicine; Emergency Provider Emergency Medicine; PCP Internal Medicine
DX: A04.72 Enterocolitis due to Clostridium difficile, not specified as recurrent (principal); E43 Unspecified severe protein-calorie malnutrition; E87.0 Hyperosmolality and hypernatremia; N18.4 Chronic kidney disease, stage 4 (severe); I25.10 Atherosclerotic heart disease of native coronary artery without angina pectoris; I12.9 Hypertensive chronic kidney disease with stage 1 through stage 4 chronic kidney disease, or unspecified chronic kidney disease; E78.5 Hyperlipidemia, unspecified; R26.2 Difficulty in walking, not elsewhere classified; D53.9 Nutritional anemia, unspecified; I25.2 Old myocardial infarction; R60.1 Generalized edema; N50.89 Other specified disorders of the male genital organs; Z20.822 Contact with and (suspected) exposure to COVID-19; Z87.891 Personal history of nicotine dependence; Z95.5 Presence of coronary angioplasty implant and graft; Z68.25 Body mass index [BMI] 25.0-25.9, adult
CPT/HCPCS: 36415; 71045; 72170; 80048; 80053; 80061; 81002; 81050; 82436; 82570; 82607; 82728; 82746; 83540; 83550; 83735; 83880; 83935; 84133; 84156; 84300; 84439; 84443; 84481; 84540; 85025; 86038; 86160; 86225; 86235; 87493; 87506; 87811; 93005; 97162; 97166; 97535; 97802; 99251; 99252; 99285; A4216; G0463; J1940

== ENCOUNTER 2022-07-22 10:38 | Inpatient (IN) | payer MEDICARE, SELFPAY ==
[2022-07-22] VITALS (7 sets, daily range): BP systolic 129–156; BP diastolic 94–108; PULSE 71–104; RESP 14–20; TEMP 36.1–36.7; O2SAT 97–98; BMI 24.0; BMI 23.6
--- NOTE | 2022-07-22 11:02 | EX.ED.DYSGE1 ---
HPI History of Present Illness Chief Complaint: Weakness Narrative Narrative: 86-year-old male presenting with no complaints except for feeling a little bit dry. He states he is not having any nausea and does not have any trouble eating or drinking. This morning he drank coffee and a little bit of water. He states he is at a longterm facility and they checked his blood pressures and these have been normal. He has not had a fever. He does not have a cough or shortness of breath. He does have diarrhea and was diagnosed with C. difficile colitis yesterday and is started on vancomycin orally. He denies cough, shortness of breath. He denies abdominal pain. He is not have any urinary complaints. He states he is making normal urine. Patient previously seen in the ED and admitted to the hospital for generalized weakness status post COVID and was hospitalized. He was sent to the longterm facility for rehab where he has been recovering. He states he can walk but has not really walked that much because they do not let him there without assistance. [facility] Medical History Abdominal aortic aneurysm (AAA) Abdominal aortic aneurysm without rupture Acute kidney injury Anasarca Atherosclerotic heart disease of [place] coronary artery without angina pectoris BPH (benign prostatic hyperplasia) CAD (coronary artery disease) Chronic kidney disease Esophageal cancer Essential hypertension Gastric adenocarcinoma Generalized weakness Gout History of left heart catheterization (LHC) (~06/26/19) HTN (hypertension) Hyperlipidemia Kidney stones Macrocytic anemia Murmur, cardiac Non-rheumatic aortic stenosis Old myocardial infarction Presence of stent in coronary artery (~09/05/02) Severe protein-calorie malnutrition Sleep apnea Home Medications multivitamin with folic acid 400 mcg tablet 2 tab PO DAILY supplement 04/22/14 [History Last Taken 03/19/19] omeprazole 40 mg capsule,delayed release 40 mg PO DAILY GERD 06/30/16 [History Last Taken 06/26/19] tamsulosin 0.4 mg capsule 0.4 mg PO QHS BPH 05/26/17 [History Last Taken 06/24/22] acetaminophen 325 mg tablet 650 mg PO Q6H PRN PRN Fever >100.4 03/21/19 [Rx Last Taken Unknown] aspirin 81 mg tablet,delayed release 81 mg PO DAILY heart health 06/26/22 [History Last Taken 06/24/22] vancomycin 25 mg/mL oral solution 125 mg PO Q6H 07/22/22 [History Last Taken Unknown] Allergy/AdvReac Type Severity Reaction Status Date / Time adhesive Allergy burn-like Verified 07/22/22 10:42 cortisone [Cortisone] Allergy Rash Verified 07/22/22 10:42 simvastatin AdvReac joint/muscle Verified 07/22/22 10:42 aches Family History Father Congestive heart failure Mother Colon cancer Surgical History H/O right inguinal hernia repair History of cholecystectomy History of cholecystectomy History of gastrectomy (~07/2014) Presence of coronary angioplasty implant and graft (~09/05/02) S/P TAVR (transcatheter aortic valve replacement) (~12/27/19) Social History household members: spouse Smoking Status: Former smoker how long ago did patient quit smoking: Quit ~20 yrs prior, smoked since late 20s until quit, pipe specifically. alcohol intake: never substance use type: does not use ROS ROS ED Constitutional Constitutional ED: Denies chills or fever(s) Eyes Eyes: Denies change in vision or diplopia ENT ENT ED: Denies rhinorrhea or sore throat Cardiovascular Cardiovascular: Denies chest pain or palpitations Respiratory/Chest Respiratory/Chest: Denies cough or dyspnea Gastrointestinal Gastrointestinal: Reports diarrhea; Denies abdominal pain, constipation, nausea or vomiting Genitourinary Genitourinary ED: Denies dysuria or hematuria Musculoskeletal Musculoskeletal: Denies arthralgias Integumentary Denies Abrasions or rash Neurologic Neurologic: Denies headache(s) or paresthesias Psychiatric Psychiatric: Denies anxiety or depression EXAM Physical Exam Const Vital Signs: 07/22/22 10:39 07/22/22 10:49 07/22/22 10:50 Temperature 97.7 F L Temperature Source Temporal Pulse Rate 104 H Respiratory Rate 20 H Respiratory Effort Normal Non-Labored Respiratory Pattern Normal Blood Pressure 145/104 H 129/97 H Blood Pressure Mean 117 107 Pulse Ox 98 Oxygen Delivery Method Room Air 07/22/22 10:50 07/22/22 11:57 07/22/22 11:57 Temperature 97.7 F L 98.0 F Temperature Source Temporal Temporal Pulse Rate 95 71 75 Respiratory Rate 17 14 15 Respiratory Effort Respiratory Pattern Blood Pressure 129/97 H 150/94 H 150/94 H Blood Pressure Mean 107 112 112 Pulse Ox 98 97 97 Oxygen Delivery Method Room Air Room Air Room Air 07/22/22 15:20 07/22/22 17:05 Temperature 97 F L Temperature Source Temporal Pulse Rate 81 82 Respiratory Rate 18 Respiratory Effort Respiratory Pattern Blood Pressure 155/95 H 145/94 H Blood Pressure Mean 115 111 Pulse Ox 98 Oxygen Delivery Method Room Air Positive well nourished General Appearance ED: NAD HEENT Reports moist mucous membranes Eyes PERRL and EOMs intact bilaterally Neck no lymphadenopathy Chest Wall inspection of chest normal and palpation of chest normal Resp normal respiratory effort and clear to auscultation bilaterally Cardio regular rate and regular rhythm GI normal to inspection, nondistended, normoactive bowel sounds Extremity normal to inspection Neuro oriented x3 and CN's II-XII intact bilaterally Sensorium / Orientation: alert Psych mental status grossly normal Skin no rashes or lesions noted and no wounds MDM MDM MDM Narrative Medical decision making narrative: 86-year-old male presenting for evaluation from his longterm facility where he was discharged to because he thinks he might be a little dry. He states he is able to drink water and eat food without any difficulty. He does not have any pain anywhere. He is not coughing or short of breath. He has not had a fever even though he had recent COVID and he has now C. difficile. Patient does admit to diarrhea. He is on vancomycin p.o. at the longterm facility. Blood work is obtained and his CBC does not show an elevated white blood cell count as it is 4.6. Hemoglobin stable at 9.8. Platelets low at 125 but this is actually up for him. Creatinine 2.97 which is near his recent baseline. Sodium noted to be high at 151 and chloride is high at 128. When I went back into the room to discuss this with the patient he states he does not want to go back to the longterm facility because there is too much COVID there. I did tell him that he just recently had COVID and was unlikely to get this. He states he does not want to go back, and his family is here and is willing to take him home and take care of him. Did funeral planning counselor him that he would be going home from the emergency room on a Monday evening with none of his medications and no follow-up. He still insists on going home. I will try to talk to whoever is on-call for Dr. Gold who is his primary care physician. After speaking with the on-call physician he did not feel he could guarantee follow-up on Monday. He recommended admitting the patient to the hospital. Patient is amenable to staying in the hospital but will not go back to the [place] [facility]. I spoke with the hospitalist who will admit the patient. Impression: 1. Hypernatremia 2. Hyperchloremia 3. C. difficile colitis Lab Data Attestation: I reviewed the patient's lab results. Labs: Laboratory Results - last 24 hr 07/22/22 07/22/22 11:00 11:00 WBC 4.6 RBC 3.05 L Hgb 9.8 L Hct 31.6 L MCV 103.6 H MCH 32.1 H MCHC 31.0 L RDW Std Deviation 68.1 H RDW Coeff of Rain 17.9 H Plt Count 125 L MPV 10.7 Neut % (Auto) Not Reportable Absolute Neuts (auto) 2.9 Absolute Lymphs (auto) 1.32 Total Counted 100 Neutrophils % (Manual) 62 Band Neutrophils % 2 Lymphocytes % (Manual) 29 Monocytes % (Manual) 4 Eosinophils % (Manual) 2 Metamyelocytes % 1 Diff Path Review May foll Platelet Estimate SLT DEC RBC Morphology N CHROM Anisocytosis RARE Sodium 151 H Potassium 4.3 Chloride 128 H* Carbon Dioxide 16.0 L Anion Gap 7 BUN 55 H Creatinine 2.97 H Estim Creat Clear Calc 20.92 Est GFR (MDRD) Af Amer 26 L Est GFR (MDRD) Non-Af 22 L BUN/Creatinine Ratio 18.5 Glucose 102 Calcium 7.5 L Discharge Plan Triage Chief Complaint: Weakness ED Provider: Durga Sage Dx/Rx/DC Orders Prescriptions: No Action multivitamin with folic acid 1 TABLET tablet 2 tab PO DAILY Label Comments: vitamin omeprazole 40 MG capsule 40 mg PO DAILY Label Comments: ACID REFLUX tamsulosin 0.4 MG capsule 0.4 mg PO QHS acetaminophen 325 MG tablet 650 mg PO Q6H PRN PRN (Reason: Fever >100.4) 0RF aspirin 81 mg tablet,delayed release (DR/EC) 81 mg PO DAILY vancomycin 25 mg/mL Recon Soln 125 mg PO Q6H Primary Care Provider: Lex Gold Referrals: Lex Gold MD [Primary Care Provider] -
[2022-07-22 11:24] LABS: Hematocrit 31.6 % (40-54); Hemoglobin 9.8 g/dL (13.0-16.5); Mean Corpuscular Hgb 32.1 pg (27.0-32.0); Mean Corpuscular Volume 103.6 fL (80-94); Mean Platelet Vol. 10.7 fl (6.2-12.0); POSITIVE COUNT YES; POSITIVE MORPHOLOGY YES; Platelet Count 125 K/mm3 (150-450); RBC Distribution Width CV 17.9 % (11.6-14.6); RBC Distribution Width SD 68.1 fl (35.1-43.9); Red Blood Count 3.05 M/mm3 (4.6-6.2); White Blood Count 4.6 K/mm3 (4.4-11.0)
[2022-07-22 11:26] LABS: Differential Indicated MANUAL DIFF
[2022-07-22 11:40] LABS: Anion Gap 7 (5-15); BUN 55 mg/dL (7-18); BUN/Creat Ratio 18.5 RATIO (10-20); Calcium,Total 7.5 mg/dL (8.5-10.1); Chloride 128 mmol/L (98-107); Creatinine, Serum 2.97 mg/dL (0.70-1.30); EST Glomerular Filtration Rate 22 mL/min (>60); Est Glom Filt Rate - Afr Amer 26 mL/min (>60); Estimated Creatinine Clearance 20.92 ml/min; Glucose 102 mg/dL (74-106); Potassium 4.3 mmol/L (3.5-5.1); Sodium Level 151 mmol/L (136-145)
[2022-07-22 11:53] LABS: Eosinophil 2 % (0-5); Lymphocyte 29 % (19-41); Metamyelocyte 1 % (0-1); Monocyte 4 % (0-10); Neutrophil-Band 2 % (0-5); Neutrophil-Segmented 62 % (47-70); Total Cells Counted 100 (MANUAL DIFF)
[2022-07-22 11:55] LABS: Anisocytosis RARE; Platelet Estimate SLT DEC (ADEQ); Red Cell Morphology N CHROM NORMAL (NORM C&C)
[2022-07-22 11:57] LABS: Absolute Lymphocyte Count 1.32 X10^3/uL (0.83-4.51); Absolute Neutrophil Count 2.9 X10^3/uL (2.0-7.7); Lymphocyte # 1.32 X10^3/ul (0.83-4.51); Neutrophil # 2.91 X10^3/uL (2.7-7.7)
[2022-07-22] MEDS: 0.9% Normal Saline 1,000 ML 999 ML IV (15:28)
--- NOTE | 2022-07-22 17:02 | PCM.HP.STD ---
HPI - General General Date of Admission: 07/22/22 Date of Service: 07/22/22 Chief Complaint: Generalized weakness, diarrhea HPI Narrative SEEMA CHACON, is a 86 M who presents with the above. Patient with past medical history of CAD status post PCI, valvular heart disease status post TAVR, chronic thrombocytopenia. Patient has had multiple admissions in the recent past, admitted on 07/03/2022 with Acute C. diff and Acute kidney injury. Patient was just charged to the halfway facility. In the halfway facility, patient was not eating and drinking well. He was diagnosed with COVID around 07/18/22. Patient however did not require oxygen. Patient was brought back to the emergency room with complaints of feeling dry and having poor oral intake and also having abnormal blood work. He denied any diarrhea today. Vitals in the ED showed blood pressure 145/104, heart rate 104, respiratory 20, temperature 97.7 F, oxygen sat was 98% on room air. WBC count 4.3, hemoglobin 9.8, platelet count 125, which is close to his baseline. Sodium is 151, potassium 4.2, chloride 128, bicarbonate 16, BUN 35, creatinine 2.97, up from 2.44 At the time of being seen, patient's daughter and son were at the bedside. Patient initially wanted to go home. He agrees to admission based on his abnormal blood work. He intends to stay only 1 day and go home. I explained to him that would have to reevaluate day by day and also depend on what physical therapy will say. Patient lives at home with her who is also frail. There is no enough family support for discharge home. Patient thinks that he is strong enough to go home. He agrees that that needs to be confirmed with PT and OT. [facility] Medical History Abdominal aortic aneurysm (AAA) Abdominal aortic aneurysm without rupture Acute kidney injury Anasarca Atherosclerotic heart disease of [place] coronary artery without angina pectoris BPH (benign prostatic hyperplasia) CAD (coronary artery disease) Chronic kidney disease Esophageal cancer Essential hypertension Gastric adenocarcinoma Generalized weakness Gout History of left heart catheterization (LHC) (~06/26/19) HTN (hypertension) Hyperlipidemia Kidney stones Macrocytic anemia Murmur, cardiac Non-rheumatic aortic stenosis Old myocardial infarction Presence of stent in coronary artery (~09/05/02) Severe protein-calorie malnutrition Sleep apnea Home Medications omeprazole 40 mg capsule,delayed release 40 mg PO DAILY ACID REFLUX 06/30/16 [History Last Taken 07/21/22] tamsulosin 0.4 mg capsule 0.4 mg PO QHS PROSTATE 05/26/17 [History Last Taken 07/21/22] aspirin 81 mg tablet,delayed release 81 mg PO DAILY heart health 06/26/22 [History Last Taken 07/21/22] acetaminophen 325 mg tablet 325 - 650 mg PO Q6H PRN Pain 07/22/22 [History Last Taken Unknown] ascorbic acid (vitamin C) 500 mg tablet (Vitamin C) 500 mg PO BID SUPPLEMENT 07/22/22 [History Last Taken 07/21/22] cholecalciferol (vitamin D3) 50 mcg (2,000 unit) tablet (Vitamin D3) 50 mcg PO DAILY SUPPLEMENT 07/22/22 [History Last Taken 07/21/22] cyanocobalamin (vitamin B-12) 500 mcg tablet 500 mcg PO DAILY SUPPLEMENT 07/22/22 [History Last Taken 07/21/22] dextromethorphan-benzocaine 5 mg-7.5 mg lozenges 1 ralph PO Q2H PRN SORE THROAT/COUGH 07/22/22 [History Last Taken Unknown] ondansetron 4 mg disintegrating tablet 4 mg PO Q4H PRN NAUSEA/VOMITING 07/22/22 [History Last Taken Unknown] polysaccharide iron complex 150 mg iron capsule (iFerex 150) 150 mg PO DAILY SSUPPLEMENT 07/22/22 [History Last Taken 07/21/22] vancomycin 25 mg/mL oral solution 125 mg PO 4X/DAY ANTIBIOTIC 07/22/22 [History Last Taken Unknown] zinc sulfate 50 mg zinc (220 mg) tablet 50 mg PO DAILY SUPPLEMENT 07/22/22 [History Last Taken 07/21/22] Allergy/AdvReac Type Severity Reaction Status Date / Time adhesive Allergy burn-like Verified 07/22/22 10:42 cortisone [Cortisone] Allergy Rash Verified 07/22/22 10:42 simvastatin AdvReac joint/muscle Verified 07/22/22 10:42 aches Family History Father Congestive heart failure Mother Colon cancer Surgical History H/O right inguinal hernia repair History of cholecystectomy History of cholecystectomy History of gastrectomy (~07/2014) Presence of coronary angioplasty implant and graft (~09/05/02) S/P TAVR (transcatheter aortic valve replacement) (~12/27/19) Social History household members: spouse Smoking Status: Former smoker how long ago did patient quit smoking: Quit ~20 yrs prior, smoked since late 20s until quit, pipe specifically. alcohol intake: never substance use type: does not use ROS ROS Narrative Constitutional: Reports: Malaise, Weakness, Fatigue. Denies: Anorexia, Chills, Fever, Night Sweats, Weight Change Eyes: Denies: Blurred vision, Cataracts, Conjunctivae Inflammation, Pain, Redness, Vision Change HEENT: Denies: Difficulty Hearing, Difficulty Swallowing, Head Aches, Hearing Changes, Sinus Congestion, Sinus Drainage Cardiovascular: Denies: Chest Pain, Orthopnea, Palpitations Respiratory: Denies: Cough, Shortness of breath at rest, Sputum production Gastrointestinal: Diarrhea denies: Abdominal Pain, Nausea, Vomiting Genitourinary: Denies: Dysuria Musculoskeletal: Denies: Joint Pain, Joint stiffness, Joint swelling, Joint Tenderness Skin: Denies: Rash, Wounds Neurological: Denies: Numbness, Tingling, Focal weakness Vital Signs Vital Signs Vital Signs: 07/22/22 10:39 07/22/22 10:49 07/22/22 10:50 Temperature 97.7 F L Temperature Source Temporal Pulse Rate 104 H Respiratory Rate 20 H Respiratory Effort Normal Non-Labored Respiratory Pattern Normal Blood Pressure 145/104 H 129/97 H Blood Pressure Mean 117 107 Pulse Ox 98 Oxygen Delivery Method Room Air 07/22/22 10:50 07/22/22 11:57 07/22/22 11:57 Temperature 97.7 F L 98.0 F Temperature Source Temporal Temporal Pulse Rate 95 71 75 Respiratory Rate 17 14 15 Respiratory Effort Respiratory Pattern Blood Pressure 129/97 H 150/94 H 150/94 H Blood Pressure Mean 107 112 112 Pulse Ox 98 97 97 Oxygen Delivery Method Room Air Room Air Room Air 07/22/22 15:20 Temperature Temperature Source Pulse Rate 81 Respiratory Rate Respiratory Effort Respiratory Pattern Blood Pressure 155/95 H Blood Pressure Mean 115 Pulse Ox Oxygen Delivery Method Weight Weight: 82.866 kg Body Mass Index (BMI) 24.0 Physical Exam Narrative Physical exam: General: Alert, Oriented x3, Cooperative, appears frail, not on oxygen HEENT: Atraumatic Oral: Moist Mucosa Neck: Supple Lungs:diminished to auscultation Cardiovascular: HS I+II, regular, 3/6 ejection systolic murmur Abdomen: Bowel Sounds Present, Soft, Non Tender Extremities: Bilateral pedal edema +3 Skin: No rashes, No breakdown Neurological: Grossly intact Psych/Mental Status: Appropriate Results Lab / Micro Data Result Diagrams: 07/22/22 11:00 07/22/22 11:00 Labs: Laboratory Results - last 24 hr 07/22/22 11:00: WBC 4.6, RBC 3.05 L, Hgb 9.8 L, Hct 31.6 L, MCV 103.6 H, MCH 32.1 H, MCHC 31.0 L, RDW Std Deviation 68.1 H, RDW Coeff of Rain 17.9 H, Plt Count 125 L, MPV 10.7, Neut % (Auto) Not Reportable, Absolute Neuts (auto) 2.9, Absolute Lymphs (auto) 1.32, Total Counted 100, Neutrophils % (Manual) 62, Band Neutrophils % 2, Lymphocytes % (Manual) 29, Monocytes % (Manual) 4, Eosinophils % (Manual) 2, Metamyelocytes % 1, Diff Path Review December, Platelet Estimate SLT DEC, RBC Morphology N CHROM, Anisocytosis RARE 07/22/22 11:00: Sodium 151 H, Potassium 4.3, Chloride 128 H*, Carbon Dioxide 16.0 L, Anion Gap 7, BUN 55 H, Creatinine 2.97 H, Estim Creat Clear Calc 20.92, Est GFR (MDRD) Af Amer 26 L, Est GFR (MDRD) Non-Af 22 L, BUN/Creatinine Ratio 18.5, Glucose 102, Calcium 7.5 L Assessment & Plan Assessment/Plan (1) C. difficile colitis: (2) HTN (hypertension): PLAN: Plan 1. Acute COVID-19 pneumonia with hypoxia, diagnosed less than 5 days ago We will continue with special contact/airborne precautions We will continue to monitor oxygen saturation 2. Acute C. difficile, present during the last hospitalization, patient was discharged on oral vancomycin through until 07/13 Will continue on oral vancomycin 3. Hypernatremia secondary to dehydration, will continue on D5 water, trend BMP 4. CKD stage IV, creatinine on admission is 2.97, previous creatinine at discharge was 2.44 We will continue to trend lab 5. Anasarca, likely related to severe hypoalbuminemia/severe protein calorie malnutrition Consult manager of housekeeping, will hold off on Lasix on account of CKD/dehydration Reevaluate with daily weights 6. Iron deficiency anemia, history of gastrectomy , hemoglobin appears stable, continue on oral iron 7. Debility, acute on chronic, related to the above, PT and OT to evaluate and treat Social work consult on discharge planning 8. Chronic leukocytopenia, unclear etiology, platelets is even improved now at 125 compared to previous 104 9. DVT prophylaxis?heparin subcu, will need to monitor platelet count on account of chronic thrombocytopenia Charges/Coding Visit Charges Inpatient E&M: 19357 Init Hosp L3
[2022-07-22] MEDS: Aspirin E.C. 81 MG Tablet PO (19:00)
[2022-07-22] MEDS: Vancomycin 125 MG/5 ML Susp PO.SYRINGE PO (20:46)
[2022-07-22 21:16] LABS: AST(SGOT) 121 U/L (15-37); Alanine Aminotransfer ALT/SGPT 108 U/L (16-61); Albumin, Serum 1.7 g/dL (3.2-5.0); Alkaline Phosphatase 748 U/L (45-117); Bilirubin, Direct 0.11 mg/dL (0.00-0.30); Globulin 4.6 g/dL (2.2-4.2); Protein, Total 6.3 g/dL (6.4-8.2)
[2022-07-22] MEDS: Heparin Injection (Vial) 5,000 UNIT/ML VIAL 5000 UNIT SC (22:42)
[2022-07-22] MEDS: Ascorbic Acid 500 MG Tablet PO (22:42)
[2022-07-22] MEDS: Tamsulosin HCl 0.4 MG Capsule PO (22:42)
[2022-07-23] MEDS: Vancomycin 125 MG/5 ML Susp PO.SYRINGE PO ×5 (01:54→23:47)
[2022-07-23] MEDS: Heparin Injection (Vial) 5,000 UNIT/ML VIAL 5000 UNIT SC ×3 (06:50→22:38)
[2022-07-23 07:00] VITALS: BP 125/94; PULSE 67; RESP 16; TEMP 36.4; O2SAT 95
[2022-07-23 07:47] LABS: Hematocrit 30.7 % (40-54); Hemoglobin 9.6 g/dL (13.0-16.5); Mean Corp Hgb Conc 31.3 g/dL (32-36); Mean Corpuscular Hgb 32.5 pg (27.0-32.0); Mean Corpuscular Volume 104.1 fL (80-94); Mean Platelet Vol. 10.5 fl (6.2-12.0); POSITIVE COUNT YES; POSITIVE MORPHOLOGY YES; Platelet Count 132 K/mm3 (150-450); RBC Distribution Width CV 17.7 % (11.6-14.6); RBC Distribution Width SD 67.6 fl (35.1-43.9); Red Blood Count 2.95 M/mm3 (4.6-6.2); White Blood Count 4.2 K/mm3 (4.4-11.0)
[2022-07-23 07:51] LABS: Differential Indicated MANUAL DIFF
[2022-07-23 08:15] LABS: Eosinophil 2 % (0-5); Lymphocyte 24 % (19-41); Metamyelocyte 2 % (0-1); Myelocyte 1 % (0-0); Neutrophil-Band 1 % (0-5); Neutrophil-Segmented 70 % (47-70); Total Cells Counted 100 (MANUAL DIFF)
[2022-07-23 08:16] LABS: Anisocytosis 2+
[2022-07-23 08:18] LABS: ALB/GLOB Ratio 0.4 RATIO (0.9-2.4); AST(SGOT) 110 U/L (15-37); Alanine Aminotransfer ALT/SGPT 132 U/L (16-61); Albumin, Serum 1.6 g/dL (3.2-5.0); Alkaline Phosphatase 950 U/L (45-117); Anion Gap 5 (5-15); BUN 52 mg/dL (7-18); Calcium,Total 7.4 mg/dL (8.5-10.1); Chloride 128 mmol/L (98-107); Creatinine, Serum 2.73 mg/dL (0.70-1.30); EST Glomerular Filtration Rate 24 mL/min (>60); Est Glom Filt Rate - Afr Amer 29 mL/min (>60); Estimated Creatinine Clearance 22.76 ml/min; Globulin 4.2 g/dL (2.2-4.2); Glucose 90 mg/dL (74-106); Magnesium 1.9 mg/dL (1.6-2.6); Phosphorus 5.6 mg/dL (2.5-4.9); Platelet Estimate SLT DEC (ADEQ); Potassium 4.2 mmol/L (3.5-5.1); Protein, Total 5.8 g/dL (6.4-8.2); Red Cell Morphology N CHROM NORMAL (NORM C&C); Sodium Level 150 mmol/L (136-145)
[2022-07-23 08:19] LABS: Absolute Lymphocyte Count 1.01 X10^3/uL (0.83-4.51); Lymphocyte # 1.01 X10^3/ul (0.83-4.51)
--- NOTE | 2022-07-23 09:14 | NURSING ---
PER [facility]: pt + COVID test on 07/17/22 and + CDiff on 07/21/22
--- NOTE | 2022-07-23 09:39 | PCA ---
according to [facility], pt tested postive for covid 07/17 and cdiff 07/21
--- NOTE | 2022-07-23 10:16 | PN.HOSP_ITS ---
Subjective Subjective Doing well, no issues overnight. He tested positive about a week ago for COVID he remains asymptomatic currently. Was also tested positive for C. difficile and currently being treated Objective Data Objective Data Vital Signs: Vital Signs Temp Pulse Resp BP Pulse Ox O2 Del Method 97.5 F L 67 16 125/94 H 95 Room Air 07/23/22 07:00 07/23/22 07:00 07/23/22 07:00 07/23/22 07:00 07/23/22 07:00 07/23/22 07:00 Oxygen Delivery Method Room Air Weight: 179 lb 7.3 oz Body Mass Index (BMI) 23.6 Intake & Output: Intake and Output for Last 24 Hours 07/22/22 07/23/22 07/24/22 03:59 03:59 03:59 Intake Total 1000 / 1000 1000 / 1000 Balance 1000 / 1000 1000 / 1000 Lab / Micro Data Result Diagrams: 07/23/22 07:24 07/23/22 07:24 Labs: Laboratory Results - last 24 hr 07/22/22 11:00: WBC 4.6, RBC 3.05 L, Hgb 9.8 L, Hct 31.6 L, MCV 103.6 H, MCH 32.1 H, MCHC 31.0 L, RDW Std Deviation 68.1 H, RDW Coeff of Rain 17.9 H, Plt Count 125 L, MPV 10.7, Neut % (Auto) Not Reportable, Absolute Neuts (auto) 2.9, Absolute Lymphs (auto) 1.32, Total Counted 100, Neutrophils % (Manual) 62, Band Neutrophils % 2, Lymphocytes % (Manual) 29, Monocytes % (Manual) 4, Eosinophils % (Manual) 2, Metamyelocytes % 1, Diff Path Review December foll, Platelet Estimate SLT DEC, RBC Morphology N CHROM, Anisocytosis RARE 07/22/22 11:00: Sodium 151 H, Potassium 4.3, Chloride 128 H*, Carbon Dioxide 16.0 L, Anion Gap 7, BUN 55 H, Creatinine 2.97 H, Estim Creat Clear Calc 20.92, Est GFR (MDRD) Af Amer 26 L, Est GFR (MDRD) Non-Af 22 L, BUN/Creatinine Ratio 18.5, Glucose 102, Calcium 7.5 L 07/22/22 11:00: Total Bilirubin 0.20, Direct Bilirubin 0.11, AST 121 H, ALT 108 H, Alkaline Phosphatase 748 H, Total Protein 6.3 L, Albumin 1.7 L, Globulin 4.6 H 07/23/22 07:24: WBC 4.2 L, RBC 2.95 L, Hgb 9.6 L, Hct 30.7 L, MCV 104.1 H, MCH 32.5 H, MCHC 31.3 L, RDW Std Deviation 67.6 H, RDW Coeff of Rain 17.7 H, Plt Count 132 L, MPV 10.5, Neut % (Auto) Not Reportable, Absolute Neuts (auto) 3.0, Absolute Lymphs (auto) 1.01, Total Counted 100, Neutrophils % (Manual) 70, Band Neutrophils % 1, Lymphocytes % (Manual) 24, Eosinophils % (Manual) 2, Metamyelocytes % 2 H, Myelocytes % 1 H, Diff Path Review December, Platelet Estimate SLT DEC, RBC Morphology N CHROM, Anisocytosis 2+ 07/23/22 07:24: Sodium 150 H, Potassium 4.2, Chloride 128 H*, Carbon Dioxide 17.0 L, Anion Gap 5, BUN 52 H, Creatinine 2.73 H, Estim Creat Clear Calc 22.76, Est GFR (MDRD) Af Amer 29 L, Est GFR (MDRD) Non-Af 24 L, BUN/Creatinine Ratio 19.0, Glucose 90, Calcium 7.4 L, Phosphorus 5.6 H, Magnesium 1.9, Total Bilirubin 0.40, AST 110 H, ALT 132 H, Alkaline Phosphatase 950 H, Total Protein 5.8 L, Albumin 1.6 L, Globulin 4.2, Albumin/Globulin Ratio 0.4 L 07/23/22 07:24: Phosphorus Cancelled Physical Exam Narrative General: Alert, Oriented x3, Cooperative, No apparent distress HEENT: Atraumatic, PERRLA, EOMI, Normocephalic Oral: Moist Mucosa Neck: Supple, No JVD Lungs: Diminished, Normal air movement, No rhonchi, No wheeze, No rales Cardiovascular: Regular rate, Regular Rhythm, Normal S1, Normal S2, No murmurs Abdomen: Soft, Non Tender, Non-Distended, No Hepato-splenomegaly Extremities: Edema, Capillary Refill Less than 3 Seconds Skin: No rashes, No breakdown Musculoskeletal: No Tenderness to Palpation of Joints or Extremities Neurological: Cranial nerves II-XII grossly intact, Motor Exam 5/5 strength throughout, Sensory exam intact to light touch and pain Psych/Mental Status: Normal Affect, Appropriate Assessment & Plan Assessment/Plan (1) C. difficile colitis: (2) HTN (hypertension): PLAN: Plan 1. COVID-19 diagnosed on 07/17/2022 ? Symptom onset was a few days prior and he is not hypoxic or symptomatic in any way ? Will not provide any treatment 2. Acute C. difficile/debility ? His recent admission was for C. difficile colitis and he was placed on oral vancomycin until 07/13/2022 ? Unsure whether or not this is a recurrent C. difficile however will plan for oral vancomycin and for a 14 to 21-day course ? Discussed with him that his best case would be to go back to the retirement but will have PT/OT evaluate him for placement options 3. Hypernatremia secondary to dehydration/CKD stage IV/anasarca ? He is also hyperchloremic we will continue with D5W and monitor ? Creatinine is slowly improving we will continue to monitor ? His anasarca is likely related to severe protein calorie malnutrition as well as hypoalbuminemia 4. Iron deficiency anemia ? Status post a gastrectomy ? We will continue oral iron and monitor his hemoglobin DVT: Heparin Charges/Coding Visit Charges Inpatient E&M: 70962 Subs Hosp L2
[2022-07-23] MEDS: Ascorbic Acid 500 MG Tablet PO ×2 (10:50→22:38)
[2022-07-23] MEDS: Menthol/Lanolin/Calamine/Znox 113 GM Tube 1 APPLIC TOPICAL ×2 (10:50→22:38)
[2022-07-23] MEDS: Pantoprazole Sodium 40 MG Tablet PO (10:50)
[2022-07-23] MEDS: Iron Polysaccharide Complex 150 MG CAPSULE PO (10:50)
[2022-07-23] MEDS: Aspirin E.C. 81 MG Tablet PO (10:50)
[2022-07-23] MEDS: Multivitamins,Therapeutic Tablet 1 TABLET PO (10:50)
[2022-07-23] MEDS: Cholecalciferol (VIT D3) 25 MCG TABLET (1,000 UNITS) 50 MCG PO (10:50)
[2022-07-23] MEDS: Cyanocobalamin 500 MCG Tablet PO (10:50)
[2022-07-23 11:02] VITALS: BP 128/79; PULSE 91; RESP 18; TEMP 36.4; O2SAT 99
--- NOTE | 2022-07-23 15:09 | CASEMGMT ---
Social Work SW met w/pt in room to inquire if his plan is to return to [place] at discharge, pt came in from [place]. Pt states no, that his plan is to return home from here. Pt states home care is all set up, though he is not certain who with. Pt states a nurse went to their home to do a home assessment. Pt states it is just he and his at home, and he feels he can manage at home at this time, states can go home from here. CM aware. FABIOLA Stout
[2022-07-23 15:14] VITALS: PULSE 100
[2022-07-23 17:45] VITALS: BP 122/85; PULSE 110; RESP 18; TEMP 36.6; O2SAT 99
[2022-07-23 20:31] LABS: BUN 51 mg/dL (7-18); Creatinine, Serum 2.74 mg/dL (0.70-1.30); Glucose 152 mg/dL (74-106)
[2022-07-23 20:32] LABS: Anion Gap 5 (5-15); BUN/Creat Ratio 18.6 RATIO (10-20); Calcium,Total 7.3 mg/dL (8.5-10.1); Chloride 127 mmol/L (98-107); EST Glomerular Filtration Rate 24 mL/min (>60); Est Glom Filt Rate - Afr Amer 29 mL/min (>60); Estimated Creatinine Clearance 22.68 ml/min; Potassium 4.1 mmol/L (3.5-5.1); Sodium Level 149 mmol/L (136-145)
[2022-07-23 22:35] VITALS: BP 145/92; PULSE 71; RESP 18; TEMP 36.3; O2SAT 99
[2022-07-23] MEDS: Tamsulosin HCl 0.4 MG Capsule PO (22:38)
[2022-07-24] VITALS (8 sets, daily range): BP systolic 123–156; BP diastolic 81–94; PULSE 60–90; RESP 18; TEMP 36.2–37.2; O2SAT 97–100
[2022-07-24 06:19] LABS: Absolute Lymphocyte Count 1.27 X10^3/uL (0.83-4.51); Absolute Neutrophil Count 1.8 X10^3/uL (2.0-7.7); Basophil# 0.04 X10^3/uL; Basophil% 1.1 % (0-1); Eosinophil# 0.09 X10^3/uL; Eosinophils% 2.5 % (0-5); Hematocrit 29.3 % (40-54); Hemoglobin 8.8 g/dL (13.0-16.5); Lymphocyte # 1.27 X10^3/ul (0.83-4.51); Lymphocyte % 35.1 % (19-41); Mean Corpuscular Volume 106.5 fL (80-94); Mean Platelet Vol. 10.7 fl (6.2-12.0); Monocyte# 0.26 X10^3/uL; Monocyte% 7.2 % (0-10); NRBC Flagged by Analyzer 0 % (0-5); Neutrophil # 1.79 X10^3/uL (2.7-7.7); Neutrophil % 49.4 % (47-70); POSITIVE MORPHOLOGY YES; Platelet Count 120 K/mm3 (150-450); RBC Distribution Width CV 17.8 % (11.6-14.6); RBC Distribution Width SD 68.9 fl (35.1-43.9); Red Blood Count 2.75 M/mm3 (4.6-6.2); White Blood Count 3.6 K/mm3 (4.4-11.0)
[2022-07-24 06:27] LABS: Differential Indicated SCAN CRITERIA MET
[2022-07-24] MEDS: Vancomycin 125 MG/5 ML Susp PO.SYRINGE PO ×4 (06:55→23:29)
[2022-07-24] MEDS: Heparin Injection (Vial) 5,000 UNIT/ML VIAL 5000 UNIT SC ×3 (06:55→23:30)
[2022-07-24 07:09] LABS: Anion Gap 7 (5-15); BUN 49 mg/dL (7-18); Calcium,Total 7.5 mg/dL (8.5-10.1); Chloride 126 mmol/L (98-107); Creatinine, Serum 2.58 mg/dL (0.70-1.30); EST Glomerular Filtration Rate 25 mL/min (>60); Est Glom Filt Rate - Afr Amer 31 mL/min (>60); Estimated Creatinine Clearance 24.09 ml/min; Glucose 90 mg/dL (74-106); Sodium Level 146 mmol/L (136-145)
[2022-07-24 07:10] LABS: Differential Comment SCANNED
[2022-07-24 07:11] LABS: Macrocytosis 1+
--- NOTE | 2022-07-24 07:34 | US_ITS ---
STUDY: ABDOMINAL ULTRASOUND - RIGHT UPPER QUADRANT REASON FOR VISIT: Male, 86 years old Elevated LFT TECHNIQUE: Ultrasound evaluation of the right upper quadrant was performed with real-time and static perez-scale imaging. TECHNICAL QUALITY: Limited. Nonstandard measurements of the liver were obtained. COMPARISON: March 21, 2019 CT abdomen and pelvis FINDINGS: Liver: The liver may measure up to 15 cm. The measurement of the liver is limited given the positioning provided. There is increased echogenicity consistent with fatty infiltration. The bile ducts are within normal limits. There is hepatic color flow. The direction of portal flow is hepatopetal. There is no demonstrated mass lesion. Gallbladder: The gallbladder is been surgically removed. Common Bile Duct (C.B.D.): The common bile duct measures 3.6 mm. Pancreas: Not well-visualized due to overlying bowel gas. Right Kidney: There is limited visualization of the right kidney. Normal size of the right kidney. The right kidney measures 12.8 x 6.2 x 6.1 cm. Normal renal cortex. The right cortex measures 1.5 cm. There is no demonstrated renal mass or cyst. There is numerous cysts in the right kidney the largest of which measures 6.0 x 4.8 cm. The proximal aorta measures up to 3.8 cm on sagittal view. The mid aorta measures 2.4 cm. There is visualized ascites. There is a visualized mixed echogenicity mass within the right upper quadrant that measures approximately 3.5 x 2.7 cm. This may represent the mass that was seen on the prior study involving the right adrenal gland which also measured approximately 3.5 x 2.4 cm. US/Liver IMPRESSION: Partially visualized ascites. Technically limited study. The liver appears fatty infiltrated. . 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 Multiple right renal cysts seen on prior study. No hydronephrosis. Persistent adrenal mass. Limited visualization. Status post cholecystectomy. Limited study recommend consideration for follow up CT scan of the abdomen and pelvis for clarification. Electronically Signed: Sharonda Lovelace MD at 22:14 EST ,
--- NOTE | 2022-07-24 09:23 | PN.HOSP_ITS ---
Subjective Subjective Doing well, he is getting edematous to the IV fluids but there is a slow recovery to his sodium and his chloride level. Renal function is improving Objective Data Objective Data Vital Signs: Vital Signs Temp Pulse Resp BP Pulse Ox O2 Del Method 97.3 F L 60 18 123/81 H 98 Room Air 07/24/22 06:47 07/24/22 06:47 07/24/22 06:47 07/24/22 06:47 07/24/22 06:47 07/24/22 06:47 Oxygen Delivery Method Room Air Weight: 179 lb 7.3 oz Body Mass Index (BMI) 23.6 Intake & Output: Intake and Output for Last 24 Hours 07/23/22 07/24/22 07/25/22 03:59 03:59 03:59 Intake Total 1000 / 1000 1977.75 / 1977.75 100 / 100 Output Total 660 / 660 Balance 1000 / 1000 1318.75 / 1318.75 100 / 100 Lab / Micro Data Result Diagrams: 07/24/22 06:00 07/24/22 06:00 Labs: Laboratory Results - last 24 hr 07/23/22 19:05: Sodium 149 H, Potassium 4.1, Chloride 127 H*, Carbon Dioxide 17.0 L, Anion Gap 5, BUN 51 H, Creatinine 2.74 H, Estim Creat Clear Calc 22.68, Est GFR (MDRD) Af Amer 29 L, Est GFR (MDRD) Non-Af 24 L, BUN/Creatinine Ratio 18.6, Glucose 152 H, Calcium 7.3 L 07/24/22 06:00: WBC 3.6 L, RBC 2.75 L, Hgb 8.8 L, Hct 29.3 L, MCV 106.5 H, MCH 32.0, MCHC 30.0 L, RDW Std Deviation 68.9 H, RDW Coeff of Rain 17.8 H, Plt Count 120 L, MPV 10.7, Immature Gran % (Auto) 4.700 H, Neut % (Auto) 49.4, Lymph % (Auto) 35.1, Bonner % (Auto) 7.2, Eos % (Auto) 2.5, Baso % (Auto) 1.1 H, Absolute Neuts (auto) 1.8 L, Absolute Lymphs (auto) 1.27, Nucleated RBC % 0, Differential Comment SCANNED, Macrocytosis 1+ 12/11/22 06:00: Sodium 146 H, Potassium 4.0, Chloride 126 H, Carbon Dioxide 13.0 L, Anion Gap 7, BUN 49 H, Creatinine 2.58 H, Estim Creat Clear Calc 24.09, Est GFR (MDRD) Af Amer 31 L, Est GFR (MDRD) Non-Af 25 L, BUN/Creatinine Ratio 19.0, Glucose 90, Calcium 7.5 L Physical Exam Narrative General: Alert, Oriented x3, Cooperative, No apparent distress HEENT: Atraumatic, PERRLA, EOMI, Normocephalic Oral: Moist Mucosa Neck: Supple, No JVD Lungs: Diminished, Normal air movement, No rhonchi, No wheeze, No rales Cardiovascular: Regular rate, Regular Rhythm, Normal S1, Normal S2, No murmurs Abdomen: Soft, Non Tender, Non-Distended, No Hepato-splenomegaly Extremities: Edema, Capillary Refill Less than 3 Seconds Skin: No rashes, No breakdown Musculoskeletal: No Tenderness to Palpation of Joints or Extremities Neurological: Cranial nerves II-XII grossly intact, Motor Exam 5/5 strength throughout, Sensory exam intact to light touch and pain Psych/Mental Status: Normal Affect, Appropriate Assessment & Plan Assessment/Plan (1) C. difficile colitis: (2) HTN (hypertension): PLAN: Plan 1. COVID-19 diagnosed on 07/17/2022 ? Symptom onset was a few days prior and he is not hypoxic or symptomatic in any way ? Will not provide any treatment 2. Acute C. difficile/debility/elevated LFTs ? His recent admission was for C. difficile colitis and he was placed on oral vancomycin until 07/13/2022 ? Unsure whether or not this is a recurrent C. difficile however will plan for oral vancomycin and for a 14 to 21-day course ? Discussed with him that his best case would [facility] but will have PT/OT evaluate him for placement options ? Unsure as to the origin, will obtain a liver ultrasound. 3. Hypernatremia secondary to dehydration/CKD stage IV/anasarca ? He is also hyperchloremic we will continue with D5W ? Creatinine is slowly improving we will continue to monitor ? His anasarca is likely related to severe protein calorie malnutrition as well as hypoalbuminemia ? Given his fairly recent onset of renal failure, he did have a renal ultrasound done on his previous admission which was unremarkable, will consult nephrology for assistance in his renal failure as well as his electrolyte disturbances 4. Iron deficiency anemia ? Status post a gastrectomy ? We will continue oral iron and monitor his hemoglobin DVT: Heparin Charges/Coding Visit Charges Inpatient E&M: 72486 Subs Hosp L2
[2022-07-24] MEDS: Cholecalciferol (VIT D3) 25 MCG TABLET (1,000 UNITS) 50 MCG PO (10:43)
[2022-07-24] MEDS: Ascorbic Acid 500 MG Tablet PO ×2 (10:43→23:30)
[2022-07-24] MEDS: Pantoprazole Sodium 40 MG Tablet PO (10:44)
[2022-07-24] MEDS: Iron Polysaccharide Complex 150 MG CAPSULE PO (10:44)
[2022-07-24] MEDS: Cyanocobalamin 500 MCG Tablet PO (10:44)
[2022-07-24] MEDS: Multivitamins,Therapeutic Tablet 1 TABLET PO (10:44)
[2022-07-24] MEDS: Aspirin E.C. 81 MG Tablet PO (10:44)
[2022-07-24] MEDS: Menthol/Lanolin/Calamine/Znox 113 GM Tube 1 APPLIC TOPICAL ×2 (13:49→23:30)
--- NOTE | 2022-07-24 19:05 | PCM.PN.BLA ---
Progress Note Consult acknowledged. Pt is known to our service. He is elderly male with advanced CKD, baseline Cr 2.4 or so. Was admitted with hypernatremia, DELGADO on CKD ( Cr on admission was over 3) due to prerenal azotemia. Cr and Na are getting better, but edema is worse. Complicating factor is extreme hypoalbuminemia that seems to be the reason for edema. previous urine collection showed 3.1 gm of protein that is only partially could blame for Pt's low albumin (1.6). Nutritional factors and liver synthetic ability are other possibilities and need to be addressed. Dr. andres will be over to see patient tomorrow and leave official consult
[2022-07-24] MEDS: Tamsulosin HCl 0.4 MG Capsule PO (23:29)
[2022-07-25 03:28] VITALS: BP 129/90; PULSE 80; RESP 20; TEMP 36.3; O2SAT 98
[2022-07-25 07:01] LABS: Absolute Lymphocyte Count 1.54 X10^3/uL (0.83-4.51); Absolute Neutrophil Count 2.7 X10^3/uL (2.0-7.7); Basophil# 0.05 X10^3/uL; Eosinophil# 0.09 X10^3/uL; Eosinophils% 1.8 % (0-5); Hematocrit 27.9 % (40-54); Hemoglobin 8.6 g/dL (13.0-16.5); Lymphocyte # 1.54 X10^3/ul (0.83-4.51); Lymphocyte % 31.2 % (19-41); Mean Corp Hgb Conc 30.8 g/dL (32-36); Mean Corpuscular Hgb 31.7 pg (27.0-32.0); Mean Platelet Vol. 10.9 fl (6.2-12.0); Monocyte# 0.35 X10^3/uL; Monocyte% 7.1 % (0-10); NRBC Flagged by Analyzer 0 % (0-5); Neutrophil # 2.72 X10^3/uL (2.7-7.7); Neutrophil % 55.1 % (47-70); POSITIVE MORPHOLOGY YES; Platelet Count 127 K/mm3 (150-450); RBC Distribution Width CV 17.7 % (11.6-14.6); RBC Distribution Width SD 66.6 fl (35.1-43.9); Red Blood Count 2.71 M/mm3 (4.6-6.2); White Blood Count 4.9 K/mm3 (4.4-11.0)
[2022-07-25] MEDS: Heparin Injection (Vial) 5,000 UNIT/ML VIAL 5000 UNIT SC ×3 (07:02→19:50)
[2022-07-25] MEDS: Vancomycin 125 MG/5 ML Susp PO.SYRINGE PO ×3 (07:02→17:36)
[2022-07-25 07:04] LABS: Differential Indicated SCAN CRITERIA MET
[2022-07-25 07:18] LABS: Macrocytosis 2+; Platelet Estimate SLT DEC (ADEQ)
[2022-07-25 07:32] LABS: ALB/GLOB Ratio 0.4 RATIO (0.9-2.4); AST(SGOT) 44 U/L (15-37); Alanine Aminotransfer ALT/SGPT 72 U/L (16-61); Albumin, Serum 1.4 g/dL (3.2-5.0); Alkaline Phosphatase 629 U/L (45-117); Anion Gap 7 (5-15); BUN 46 mg/dL (7-18); BUN/Creat Ratio 18.2 RATIO (10-20); Calcium,Total 7.1 mg/dL (8.5-10.1); Chloride 122 mmol/L (98-107); Creatinine, Serum 2.53 mg/dL (0.70-1.30); EST Glomerular Filtration Rate 26 mL/min (>60); Est Glom Filt Rate - Afr Amer 31 mL/min (>60); Estimated Creatinine Clearance 24.56 ml/min; Globulin 3.7 g/dL (2.2-4.2); Glucose 93 mg/dL (74-106); Potassium 4.1 mmol/L (3.5-5.1); Protein, Total 5.1 g/dL (6.4-8.2); Sodium Level 144 mmol/L (136-145)
[2022-07-25 08:45] VITALS: BP 130/87; PULSE 83; RESP 18; TEMP 36.3; O2SAT 99
[2022-07-25] MEDS: Multivitamins,Therapeutic Tablet 1 TABLET PO (08:59)
[2022-07-25] MEDS: Aspirin E.C. 81 MG Tablet PO (08:59)
[2022-07-25] MEDS: Iron Polysaccharide Complex 150 MG CAPSULE PO (09:00)
[2022-07-25] MEDS: Pantoprazole Sodium 40 MG Tablet PO (09:00)
[2022-07-25] MEDS: Cholecalciferol (VIT D3) 25 MCG TABLET (1,000 UNITS) 50 MCG PO (09:00)
[2022-07-25] MEDS: Cyanocobalamin 500 MCG Tablet PO (09:00)
[2022-07-25] MEDS: Menthol/Lanolin/Calamine/Znox 113 GM Tube 1 APPLIC TOPICAL ×2 (09:00→19:51)
[2022-07-25] MEDS: Ascorbic Acid 500 MG Tablet PO ×2 (09:01→19:50)
--- NOTE | 2022-07-25 11:25 | CON.PCM.RE_ITS ---
Documented by User: MELANIA Delgadillo 07/25/22 11:47 Assessment & Plan Assessment/Plan (1) Acute kidney injury: (2) Metabolic acidosis: (3) Hypernatremia: (4) C. difficile colitis: (5) HTN (hypertension): PLAN: Plan DELGADO on CKD felt to be due to prerenal azotemia. With IV fluids renal function is improving. Not known if patient was back on lasix at the [facility]. Serum creat inine was 3.04 mg/dL on admission and today his creatinine is at 2.53 mg/dL. Renal ultrasound last admission did not show any hydronephrosis. Patient having diarrhea, and has been having ongoing diarrhea for some time now. Recently diagnosed with C. difficile. He is nonoliguric. Will obtain UA. There is no acute indication for FORKLIFT TECHNICIAN at this time. Though he has lower extremity edema patient does not appear overtly fluid overloaded. He is on room air. Albumin is 1.4. Patient had 24-hour urine for protein on 07/04 which resulted in 3 g. Blood pressures acceptable, patient is not on any antihypertensives at this time. Sodium was as high as 151, improved and normalized, now on D5W. Cole mmended to continue IV fluids for another day. Bicarb low but improved, metabolic acidosis likely from diarrhea and DELGADO. Labs ordered for tomorrow. Further orders forthcoming as hospitalization evolves, thank you for allowing us to participate in the care of Mr. Chacon. Assessment & Plan (1) Acute kidney injury: (2) Hypernatremia: (3) Metabolic acidosis: (4) HTN (hypertension): (5) C. difficile colitis: Plan DELGADO on CKD felt to be due to prerenal azotemia. With IV fluids renal function is improving. Not known if patient was back on lasix at the [facility]. Serum creatinine was 3.04 mg/dL on admission and today his creatinine is at 2.53 mg/dL. Renal ultrasound last admission did not show any hydronephrosis. Patient having diarrhea, and has been having ongoing diarrhea for some time now. Recently diagnosed with C. difficile. He is nonoliguric. Will obtain UA. There is no acute indication for FORKLIFT TECHNICIAN at this time. Though he has lower extremity edema patient does not appear overtly fluid overloaded. He is on room air. Albumin is 1.4. Patient had 24-hour urine for protein on 07/04 which resulted in 3 g. Blood pressures acceptable, patient is not on any antihypertensives at this time. Sodium was as high as 151, improved and normalized, now on D5W. Recommended to continue IV fluids for another day. Bicarb low but improved, metabolic acidosis likely from diarrhea and DELGADO. Labs ordered for tomorrow. Further orders forthcoming as hospitalization evolves, thank you for allowing us to participate in the care of Mr. Chacon. HPI Consult Data Date of Consult: 07/25/22 HPI Narrative HPI Narrative: SEEMA CHACON, is a 86 M with past medical history significant for hypertension, esophageal cancer status post surgical intervention with partial gastrectomy, coronary artery disease status post PCI, valvular heart disease status post TAVR, chronic anemia, GERD who presented to the emergency room on 07/22 with complaints of diarrhea and generalized weakness. Patient had been residing at [facility] for therapy after recent hospitalizations. Recently diagnosed with COVID on 07/18. Recently diagnosed with C. difficile. We were consulted for acute kidney injury. Patient is known to our nephrology group as we were consulted to see patient for DLEGADO when in hospital mid-June 2022. At that time DELGADO felt secondary to poor oral intake, volume depletion with concurrent diuretic use as well as hypotension. Patient did not require FORKLIFT TECHNICIAN. He did receive IV fluids for volume expansion, Lasix was on hold and renal function improved. During last hospitalization serum creatinine peaked around 2.4 mg/dL. This admission, on 07/22 creatinine 3.04 mg/dL and today his creatinine has improved to 2.53 mg/dL. Today patient reports appetite has been poor. He reports he had diarrhea last night. Complains of intermittent nausea. Also to note on admission sodium was 150, today his sodium is 144. [facility] Medical History (Updated 07/25/22 @ 13:[address] Sidra Carias MD) Abdominal aortic aneurysm (AAA) Abdominal aortic aneurysm without rupture Acute kidney injury Anasarca Atherosclerotic heart disease of council coronary artery without angina pectoris BPH (benign prostatic hyperplasia) CAD (coronary artery disease) Chronic kidney disease Esophageal cancer Essential hypertension Gastric adenocarcinoma Generalized weakness Gout History of left heart catheterization (LHC) (~06/26/19) HTN (hypertension) Hyperlipidemia Kidney stones Macrocytic anemia Murmur, cardiac Non-rheumatic aortic stenosis Old myocardial infarction Presence of stent in coronary artery (~09/05/02) Severe protein-calorie malnutrition Sleep apnea Home Medications omeprazole 40 mg capsule,delayed release 40 mg PO DAILY ACID REFLUX 06/30/16 [History Last Taken 07/21/22] tamsulosin 0.4 mg capsule 0.4 mg PO QHS PROSTATE 05/26/17 [History Last Taken 07/21/22] aspirin 81 mg tablet,delayed release 81 mg PO DAILY heart health 06/26/22 [History Last Taken 07/21/22] acetaminophen 325 mg tablet 325 - 650 mg PO Q6H PRN Pain 07/22/22 [History Last Taken Unknown] ascorbic acid (vitamin C) 500 mg tablet (Vitamin C) 500 mg PO BID SUPPLEMENT 07/22/22 [History Last Taken 07/21/22] cholecalciferol (vitamin D3) 50 mcg (2,000 unit) tablet (Vitamin D3) 50 mcg PO DAILY SUPPLEMENT 07/22/22 [History Last Taken 07/21/22] cyanocobalamin (vitamin B-12) 500 mcg tablet 500 mcg PO DAILY SUPPLEMENT 07/22/22 [History Last Taken 07/21/22] dextromethorphan-benzocaine 5 mg-7.5 mg lozenges 1 ralph PO Q2H PRN SORE THROAT/COUGH 07/22/22 [History Last Taken Unknown] ondansetron 4 mg disintegrating tablet 4 mg PO Q4H PRN NAUSEA/VOMITING 07/22/22 [History Last Taken Unknown] polysaccharide iron complex 150 mg iron capsule (iFerex 150) 150 mg PO DAILY SSUPPLEMENT 07/22/22 [History Last Taken 07/21/22] vancomycin 25 mg/mL oral solution 125 mg PO 4X/DAY ANTIBIOTIC 07/22/22 [History Last Taken Unknown] zinc sulfate 50 mg zinc (220 mg) tablet 50 mg PO DAILY SUPPLEMENT 07/22/22 [History Last Taken 07/21/22] Allergy/AdvReac Type Severity Reaction Status Date / Time adhesive Allergy burn-like Verified 07/22/22 10:42 cortisone [Cortisone] Allergy Rash Verified 07/22/22 10:42 simvastatin AdvReac joint/muscle Verified 07/22/22 10:42 aches Family History Father Congestive heart failure Mother Colon cancer Surgical History H/O right inguinal hernia repair History of cholecystectomy History of cholecystectomy History of gastrectomy (~07/2014) Presence of coronary angioplasty implant and graft (~09/05/02) S/P TAVR (transcatheter aortic valve replacement) (~12/27/19) Social History household members: spouse Smoking Status: Former smoker how long ago did patient quit smoking: Quit ~20 yrs prior, smoked since late 2 0s until quit, pipe specifically. alcohol intake: never substance use type: does not use ROS ROS Narrative As in HPI and past medical history Physical Exam Narrative Alert and oriented x3, no apparent distress Cardio: S1, S2, RRR Respiratory: Lung sounds clear anteriorly and posteriorly. On room air. No wheezes rhonchi rales noted GI: Abdomen soft, positive bowel sounds Extremities: Pitting edema noted bilateral lower legs Lab / Micro Data Result Diagrams: 07/25/22 06:54 07/25/22 06:54 Labs: Laboratory Results - last 24 hr 07/25/22 06:54: WBC 4.9, RBC 2.71 L, Hgb 8.6 L, Hct 27.9 L, MCV 103.0 H, MCH 31.7, MCHC 30.8 L, RDW Std Deviation 66.6 H, RDW Coeff of Rain 17.7 H, Plt Count 127 L, MPV 10.9, Immature Gran % (Auto) 3.800 H, Neut % (Auto) 55.1, Lymph % (Auto) 31.2, Phelps % (Auto) 7.1, Eos % (Auto) 1.8, Baso % (Auto) 1.0, Absolute Neuts (auto) 2.7, Absolute Lymphs (auto) 1.54, Nucleated RBC % 0, Platelet Estimate SLT DEC, Macrocytosis 2+ 07/25/22 06:54: Sodium 144, Potassium 4.1, Chloride 122 H, Carbon Dioxide 15.0 L , Anion Gap 7, BUN 46 H, Creatinine 2.53 H, Estim Creat Clear Calc 24.56, Est GFR (MDRD) Af Amer 31 L, Est GFR (MDRD) Non-Af 26 L, BUN/Creatinine Ratio 18.2, Glucose 93, Calcium 7.1 L, Total Bilirubin 0.20, AST 44 H, ALT 72 H, Alkaline Phosphatase 629 H, Total Protein 5.1 L, Albumin 1.4 L, Globulin 3.7, Albumin/Globulin Ratio 0.4 L Documented by User: Dr. Sidra Carias MD 07/25/22 14:24 Assessment & Plan Assessment/Plan (1) Acute kidney injury: (2) Metabolic acidosis: (3) Hypernatremia: (4) C. difficile colitis: (5) HTN (hypertension): PLAN: Plan I have personally seen and examined the patient independently, reviewed thE BOTTLING LINE ATTENDANT's history, exam and MDM with my attestation below. The patient is an 86-year-old man known to our service with history of esophageal cancer status post resection, CAD, aortic valve disease status post TAVR, chronic thrombocytopenia, PAD, and SHALOM. He also has acute kidney disease with recent creatinine of 2.3 to 2.5 mg/dL. Prior to the last admission in June, serum creatinine was 1.2 mg/dL at baseline. The patient has known nephrotic range proteinuria and hypoalbuminemia. However, hypoalbuminemia preceded his admission in June 2022. The patient presented to the hospital from [facility] on 07/22/2022 with anorexia, poor oral intake and COVID-19 that was diagnosed on 07/18/2022. He also presented with diarrhea which is attributed to C. difficile colitis. Nephrology is following for DELGADO on CKD. There is 1+ edema of the lower extremities bilaterally. Lungs are clear to auscultation. Heart tones normal. Vital signs as above. Impression/plan: The patient is an 86-year-old man with acute kidney disease associated with nephrotic range proteinuria and hypoalbuminemia. Serum creatinine prior to June 2022 was around 1.2 to 1.3 mg/dL. 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 I will see if I can send anti-TARUN 2R antibody as well. 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 Definitive diagnosis would require kidney biopsy although I do not think that this would change treatment at this time. He was not losing kidney function rapidly, and serum creatinine appears to have stabilized at 2.3 to 2.4 mg/dL prior to last discharge. Acute kidney injury. Current DELGADO is likely due to volume depletion. Serum creatinine increased to 3.04 mg/dL on presentation in the setting of volume depletion from diarrhea and poor oral intake. Renal function has improved with volume expansion. Creatinine is stable in the last 24 hours. There is no need for kidney replacement therapy. Continue to volume expand the patient with current IV fluid. Hypernatremia. Likely due to dehydration from diarrhea. Agree with volume expansion using D5W since he is hemodynamically stable. Metabolic acidosis. Secondary to both diarrhea and DELGADO. Continue treat DELGADO as discussed above. Treatment of C. difficile colitis as per hospital medicine service. Assessment & Plan (1) Acute kidney injury: (2) Hypernatremia: (3) Metabolic acidosis: (4) HTN (hypertension): (5) C. difficile colitis: Plan I have personally seen and examined the patient independently, reviewed thE BOTTLING LINE ATTENDANT's history, exam and MDM with my attestation below. The patient is an 86-year-old man known to our service with history of esopha geal cancer status post resection, CAD, aortic valve disease status post TAVR, chronic thrombocytopenia, PAD, and SHALOM. He also has acute kidney disease with recent creatinine of 2.3 to 2.5 mg/dL. Prior to the last admission in June, serum creatinine was 1.2 mg/dL at baseline. The patient has known nephrotic range proteinuria and hypoalbuminemia. However, hypoalbuminemia preceded his admission in June 2022. The patient [facility] with anorexia, poor oral intake and COVID-19 that was diagnosed on 07/18/2022. He also presented with diarrhea which is attributed to C. difficile colitis. Nephrology is following for DELGADO on CKD. There is 1+ edema of the lower extremities bilaterally. Lungs are clear to auscultation. Heart tones normal. Vital signs as above. Impression/plan: The patient is an 86-year-old man with acute kidney disease associated with nephrotic range proteinuria and hypoalbuminemia. Serum creatinine prior to June 2022 was around 1.2 to 1.3 mg/dL. 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 I will see if I can send anti-TARUN 2R antibody as well. 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 Definitive diagnosis would require kidney biopsy although I do not think that this would change treatment at this time. He was not losing kidney function rapidly, and serum creatinine appears to have stabilized at 2.3 to 2.4 mg/dL prior to last discharge. Acute kidney injury. Current DELGADO is likely due to volume depletion. Serum creatinine increased to 3.04 mg/dL on presentation in the setting of volume depletion from diarrhea and poor oral intake. Renal function has improved with volume expansion. Creatinine is stable in the last 24 hours. There is no need for kidney replacement therapy. Continue to volume expand the patient with current IV fluid. Hypernatremia. Likely due to dehydration from diarrhea. Agree with volume expansion using D5W since he is hemodynamically stable. Metabolic acidosis. Secondary to both diarrhea and DELGADO. Continue treat DELGADO as discussed above. Treatment of C. difficile colitis as per hospital medicine service. HPI Consult Data Date of Consult: 07/25/22 [facility] Medical History (Updated 07/25/22 @ 13:[address] Sidra Carias MD) Abdominal aortic aneurysm (AAA) Abdominal aortic aneurysm without rupture Acute kidney injury Anasarca Atherosclerotic heart disease of council coronary artery without angina pectoris BPH (benign prostatic hyperplasia) CAD (coronary artery disease) Chronic kidney disease Esophageal cancer Essential hypertension Gastric adenocarcinoma Generalized weakness Gout History of left heart catheterization (LHC) (~06/26/19) HTN (hypertension) Hyperlipidemia Kidney stones Macrocytic anemia Murmur, cardiac Non-rheumatic aortic stenosis Old myocardial infarction Presence of stent in coronary artery (~09/05/02) Severe protein-calorie malnutrition Sleep apnea Home Medications omeprazole 40 mg capsule,delayed release 40 mg PO DAILY ACID REFLUX 06/30/16 [History Last Taken 07/21/22] tamsulosin 0.4 mg capsule 0.4 mg PO QHS PROSTATE 05/26/17 [History Last Taken 07/21/22] aspirin 81 mg tablet,delayed release 81 mg PO DAILY heart health 06/26/22 [History Last Taken 07/21/22] acetaminophen 325 mg tablet 325 - 650 mg PO Q6H PRN Pain 07/22/22 [History Last Taken Unknown] ascorbic acid (vitamin C) 500 mg tablet (Vitamin C) 500 mg PO BID SUPPLEMENT 07/22/22 [History Last Taken 07/21/22] cholecalciferol (vitamin D3) 50 mcg (2,000 unit) tablet (Vitamin D3) 50 mcg PO DAILY SUPPLEMENT 07/22/22 [History Last Taken 07/21/22] cyanocobalamin (vitamin B-12) 500 mcg tablet 500 mcg PO DAILY SUPPLEMENT 07/22/22 [History Last Taken 07/21/22] dextromethorphan-benzocaine 5 mg-7.5 mg lozenges 1 ralph PO Q2H PRN SORE THROAT/COUGH 07/22/22 [History Last Taken Unknown] ondansetron 4 mg disintegrating tablet 4 mg PO Q4H PRN NAUSEA/VOMITING 07/22/22 [History Last Taken Unknown] polysaccharide iron complex 150 mg iron capsule (iFerex 150) 150 mg PO DAILY SSUPPLEMENT 07/22/22 [History Last Taken 07/21/22] vancomycin 25 mg/mL oral solution 125 mg PO 4X/DAY ANTIBIOTIC 07/22/22 [History Last Taken Unknown] zinc sulfate 50 mg zinc (220 mg) tablet 50 mg PO DAILY SUPPLEMENT 07/22/22 [History Last Taken 07/21/22] Allergy/AdvReac Type Severity Reaction Status Date / Time adhesive Allergy burn-like Verified 07/22/22 10:42 cortisone [Cortisone] Allergy Rash Verified 07/22/22 10:42 simvastatin AdvReac joint/muscle Verified 07/22/22 10:42 aches Family History Father Congestive heart failure Mother Colon cancer Surgical History H/O right inguinal hernia repair History of cholecystectomy History of cholecystectomy History of gastrectomy (~07/2014) Presence of coronary angioplasty implant and graft (~09/05/02) S/P TAVR (transcatheter aortic valve replacement) (~12/27/19) Social History household members: spouse Smoking Status: Former smoker how long ago did patient quit smoking: Quit ~20 yrs prior, smoked since late 20s until quit, pipe specifically. alcohol intake: never substance use type: does not use Lab / Micro Data Result Diagrams: 07/25/22 06:54 07/25/22 06:54
--- NOTE | 2022-07-25 14:21 | PN.HOSP_ITS ---
Subjective Subjective Patient seen and examined. HE is still having diarrhea, but it is improving. He feels much better otherwise. Review of systems is otherwise negative. Objective Data Objective Data Vital Signs: Vital Signs Temp Pulse Resp BP Pulse Ox O2 Del Method 97.4 F L 83 18 130/87 H 99 Room Air 07/25/22 08:45 07/25/22 08:45 07/25/22 08:45 07/25/22 08:45 07/25/22 08:45 07/25/22 08:46 Oxygen Delivery Method Room Air Weight: 179 lb 7.3 oz Body Mass Index (BMI) 23.6 Intake & Output: Intake and Output for Last 24 Hours 07/23/22 07/24/22 07/25/22 23:59 23:59 23:59 Intake Total 1978.75 / 1978.75 3533.75 / 3533.75 828.75 / 828.75 Output Total 660 / 660 950 / 1150 1000 / 1000 Balance 1318.75 / 1318.75 2583.75 / 2383.75 -171.25 / -171.25 Lab / Micro Data Result Diagrams: 07/25/22 06:54 07/25/22 06:54 Labs: Laboratory Results - last 24 hr 07/25/22 06:54: WBC 4.9, RBC 2.71 L, Hgb 8.6 L, Hct 27.9 L, MCV 103.0 H, MCH 31.7, MCHC 30.8 L, RDW Std Deviation 66.6 H, RDW Coeff of Rain 17.7 H, Plt Count 127 L, MPV 10.9, Immature Gran % (Auto) 3.800 H, Neut % (Auto) 55.1, Lymph % (Auto) 31.2, [place] % (Auto) 7.1, Eos % (Auto) 1.8, Baso % (Auto) 1.0, Absolute Neuts (auto) 2.7, Absolute Lymphs (auto) 1.54, Nucleated RBC % 0, Platelet Estimate SLT DEC, Macrocytosis 2+ 07/25/22 06:54: Sodium 144, Potassium 4.1, Chloride 122 H, Carbon Dioxide 15.0 L , Anion Gap 7, BUN 46 H, Creatinine 2.53 H, Estim Creat Clear Calc 24.56, Est GFR (MDRD) Af Amer 31 L, Est GFR (MDRD) Non-Af 26 L, BUN/Creatinine Ratio 18.2, Glucose 93, Calcium 7.1 L, Total Bilirubin 0.20, AST 44 H, ALT 72 H, Alkaline Phosphatase 629 H, Total Protein 5.1 L, Albumin 1.4 L, Globulin 3.7, Albumin/Globulin Ratio 0.4 L Physical Exam Const alert, oriented x3 and no apparent distress HEENT moist oral mucous membranes and oropharynx normal Head and Scalp: normocephalic Mouth: oral and palatal mucosa normal Eyes PERRL, EOMs intact bilaterally and conjunctivae normal Neck no lymphadenopathy, supple and no JVD Resp normal respiratory effort, no retractions, no use of accessory muscles and clear to auscultation bilaterally Cardio regular rate, regular rhythm, S1 normal heart sound, S2 normal heart sound and no murmurs GI normal to inspection, nondistended, normoactive bowel sounds, soft to palpation, non-tender and non-distended Extremity normal to inspection, full ROM and no clubbing, cyanosis or edema Neuro oriented x3, CN's II-XII intact bilaterally, moves all extremities and no focal motor deficits Sensorium / Orientation: awake and alert Motor Exam: strength 5/5 throughout Psych affect normal Assessment & Plan Assessment/Plan (1) Hypernatremia: (2) Acute kidney injury: (3) C. difficile colitis: (4) COVID: PLAN: Plan #C Diff infection * stil having diarrhea. This is his second episode of C Diff infection' * on oral vancomycin, to complete a 14 day course * #Hypernatremia: resolved #COVID 19 infection * asymptomatic. On room air * diagnosed On July 17. 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 Await rec's #Non anion gap metabolic acidosis * bicarb is low * will benefit from bicarb tablets. 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 On oral iron DVT prophylaxis: heparin Charges/Coding Visit Charges Inpatient E&M: 88330 Subs Hosp L2
[2022-07-25 14:26] VITALS: BP 138/92; PULSE 70; RESP 18; TEMP 36.3; O2SAT 97
--- NOTE | 2022-07-25 14:49 | CASEMGMT ---
Addendum entered by Kalyn Warren 07/25/22 15:54: Received confirmation that [facility] will be able to see pt on the . Pt updated. Original Note: Received tc from pt cuca Bryan, she states pt wants to be home for [place] and she would like the same HHC set up as had been done before with [facility]. RN CM in to pt room, pt states he would like the same agency set up as well. He states he is not going back to the facility. Pt denies need for a list of C providers including quality and resource use data and consistent with the patient?s preferred geographic region, medical needs, and insurance network. Communicated with Nandini at [facility], they are able to accept pt upon dc.
[2022-07-25 15:15] VITALS: O2SAT 96
[2022-07-25 15:30] LABS: Pathologist Review Reviewed
[2022-07-25 15:30] LABS: Pathologist Review Reviewed
[2022-07-25 19:41] VITALS: BP 124/87; PULSE 91; RESP 18; TEMP 36.5; O2SAT 98
[2022-07-25] MEDS: Tamsulosin HCl 0.4 MG Capsule PO (19:50)
[2022-07-25 20:00] VITALS: O2SAT 98
[2022-07-26] MEDS: Vancomycin 125 MG/5 ML Susp PO.SYRINGE PO ×5 (00:26→23:15)
[2022-07-26 02:00] VITALS: BP 128/78; PULSE 91; RESP 20; TEMP 36.3; O2SAT 95; O2SAT 97
[2022-07-26] MEDS: Heparin Injection (Vial) 5,000 UNIT/ML VIAL 5000 UNIT SC ×3 (06:27→23:14)
[2022-07-26 06:55] LABS: Absolute Lymphocyte Count 1.32 X10^3/uL (0.83-4.51); Absolute Neutrophil Count 3.5 X10^3/uL (2.0-7.7); Basophil# 0.05 X10^3/uL; Basophil% 0.9 % (0-1); Eosinophils% 1.8 % (0-5); Hematocrit 28.7 % (40-54); Hemoglobin 8.9 g/dL (13.0-16.5); Lymphocyte # 1.32 X10^3/ul (0.83-4.51); Lymphocyte % 23.4 % (19-41); Mean Corpuscular Hgb 31.7 pg (27.0-32.0); Mean Corpuscular Volume 102.1 fL (80-94); Mean Platelet Vol. 10.4 fl (6.2-12.0); Monocyte# 0.44 X10^3/uL; Monocyte% 7.8 % (0-10); NRBC Flagged by Analyzer 0.4 % (0-5); Neutrophil # 3.52 X10^3/uL (2.7-7.7); Neutrophil % 62.5 % (47-70); POSITIVE MORPHOLOGY YES; Platelet Count 137 K/mm3 (150-450); RBC Distribution Width CV 17.7 % (11.6-14.6); RBC Distribution Width SD 66.3 fl (35.1-43.9); Red Blood Count 2.81 M/mm3 (4.6-6.2); White Blood Count 5.6 K/mm3 (4.4-11.0)
[2022-07-26 06:59] LABS: Differential Indicated SCAN CRITERIA MET
[2022-07-26 07:11] LABS: Anisocytosis 1+; Macrocytosis 1+; Platelet Estimate SLT DEC (ADEQ)
[2022-07-26 07:19] LABS: Albumin, Serum 1.5 g/dL (3.2-5.0); BUN 45 mg/dL (7-18); BUN/Creat Ratio 17.8 RATIO (10-20); Calcium,Total 7.3 mg/dL (8.5-10.1); Chloride 120 mmol/L (98-107); Creatinine, Serum 2.53 mg/dL (0.70-1.30); EST Glomerular Filtration Rate 26 mL/min (>60); Est Glom Filt Rate - Afr Amer 31 mL/min (>60); Estimated Creatinine Clearance 24.56 ml/min; Glucose 88 mg/dL (74-106); Magnesium 1.7 mg/dL (1.6-2.6); Phosphorus 5.3 mg/dL (2.5-4.9); Potassium 3.8 mmol/L (3.5-5.1); Sodium Level 143 mmol/L (136-145)
[2022-07-26] MEDS: Cholecalciferol (VIT D3) 25 MCG TABLET (1,000 UNITS) 50 MCG PO (08:42)
[2022-07-26] MEDS: Pantoprazole Sodium 40 MG Tablet PO ×2 (08:42→08:43)
[2022-07-26] MEDS: Aspirin E.C. 81 MG Tablet PO (08:42)
[2022-07-26] MEDS: Multivitamins,Therapeutic Tablet 1 TABLET PO (08:42)
[2022-07-26] MEDS: Ascorbic Acid 500 MG Tablet PO ×2 (08:43→23:15)
[2022-07-26] MEDS: Iron Polysaccharide Complex 150 MG CAPSULE PO (08:45)
[2022-07-26] MEDS: Menthol/Lanolin/Calamine/Znox 113 GM Tube 1 APPLIC TOPICAL ×2 (08:45→23:04)
[2022-07-26] MEDS: Cyanocobalamin 500 MCG Tablet PO (08:47)
[2022-07-26 09:17] VITALS: BP 105/78; PULSE 93; RESP 18; TEMP 37.1; O2SAT 98
--- NOTE | 2022-07-26 10:01 | PN.RENAL_ITS ---
Subjective Subjective Following for DELGADO. The patient denies current chest pain, shortness of breath at rest, or nausea. He was able to get up on his own to sit in the chair without any significant dyspnea. He denies diarrhea so far today. Last loose bowel movement was yesterday on 07/25/2022. Objective Data Objective Data Vital Signs: Vital Signs Temp Pulse Resp BP Pulse Ox O2 Del Method 98.7 F 93 18 105/78 98 Room Air 07/26/22 09:17 07/26/22 09:17 07/26/22 09:17 07/26/22 09:17 07/26/22 09:17 07/26/22 09:17 Oxygen Delivery Method Room Air Weight: 81.4 kg Body Mass Index (BMI) 23.6 Intake & Output: Intake and Output for Last 24 Hours 07/24/22 07/25/22 07/26/22 23:59 23:59 23:59 Intake Total 3533.75 / 3533.75 1766.25 / 1886.25 120 / 120 Output Total 950 / 1150 1000 / 1000 Balance 2583.75 / 2383.75 766.25 / 886.25 120 / 120 Lab / Micro Data Result Diagrams: 07/26/22 06:40 07/26/22 06:40 Labs: Laboratory Results - last 24 hr 07/22/22 11:00: Diff Path Review Reviewed 07/23/22 07:24: Diff Path Review Reviewed 07/26/22 06:40: Sodium 143, Potassium 3.8, Chloride 120 H, Carbon Dioxide 15.0 L , BUN 45 H, Creatinine 2.53 H, Estim Creat Clear Calc 24.56, Est GFR (MDRD) Af Amer 31 L, Est GFR (MDRD) Non-Af 26 L, BUN/Creatinine Ratio 17.8, Glucose 88, Calcium 7.3 L, Phosphorus 5.3 H, Magnesium 1.7, Albumin 1.5 L 07/26/22 06:40: WBC 5.6, RBC 2.81 L, Hgb 8.9 L, Hct 28.7 L, MCV 102.1 H, MCH 31.7, MCHC 31.0 L, RDW Std Deviation 66.3 H, RDW Coeff of Rain 17.7 H, Plt Count 137 L, MPV 10.4, Immature Gran % (Auto) 3.600 H, Neut % (Auto) 62.5, Lymph % (Auto) 23.4, [place] % (Auto) 7.8, Eos % (Auto) 1.8, Baso % (Auto) 0.9, Absolute Neuts (auto) 3.5, Absolute Lymphs (auto) 1.32, Nucleated RBC % 0.4, Platelet Estimate SLT DEC, Anisocytosis 1+, Macrocytosis 1+ Radiography Diagnostic Testing: Radiology Impression Liver Ultrasound 07/24/22 07:34 IMPRESSION: Partially visualized ascites. Technically limited study. The liver appears fatty infiltrated. . 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 Multiple right renal cysts seen on prior study. No hydronephrosis. Persistent adrenal mass. Limited visualization. Status post cholecystectomy. Limited study recommend consideration for follow up CT scan of the abdomen and pelvis for clarification. Electronically Signed: Sharonda Lovelace MD at 22:14 EST , Physical Exam Narrative Alert and oriented x3, no apparent distress Cardio: S1, S2, RRR Respiratory: Lung sounds clear anteriorly and posteriorly. On room air. No wheezes rhonchi rales noted GI: Abdomen soft, positive bowel sounds Extremities: 1+ edema noted bilateral lower legs Assessment & Plan Assessment/Plan (1) Acute kidney injury: (2) Metabolic acidosis: (3) Hypernatremia: (4) Hyperphosphatemia: (5) C. difficile colitis: PLAN: Plan Impression/Plan: The patient is an 86-year-old man known to our service with history of es ophageal cancer status post resection, CAD, aortic valve disease status post TAVR, chronic thrombocytopenia, PAD, and SHALOM. He also has acute kidney disease with recent creatinine of 2.3 to 2.5 mg/dL. Prior to the last admission in June 2022, serum creatinine was 1.2 mg/dL at baseline. The patient has known nephrotic range proteinuria and hypoalbuminemia. However, hypoalbuminemia preceded his admission in June 2022. Serum albumin was already 2.8 g/dL in 2017. The patient presented to the hospital from [facility] on 07/22/2022 with anorexia, poor oral intake and COVID-19 that was diagnosed on 07/18/2022. He also presented with diarrhea which is attributed to C. difficile colitis. Nephrology is following for DELGADO on CKD. Acute kidney injury. The patient is an 86-year-old man with acute kidney disease associated with nephrotic range proteinuria and hypoalbuminemia. Serum creatinine prior to June 2022 was around 1.2 to 1.3 mg/dL. 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 I will see if I can send anti-TARUN 2R antibody from the hospital. 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 Definitive diagnosis of glomerular disease would require kidney biopsy although I do not think that this would change treatment at this time. He was not losing kidney function rapidly, and serum creatinine appears to have stabilized at 2.3 to 2.4 mg/dL prior to last discharge. Current DELGADO is likely due to volume depletion. Serum creatinine peaked at 3.04 mg/dL on presentation (07/22/2022) in the setting of volume depletion from diarrhea and poor oral intake. Renal function has improved with volume expansion. Creatinine has stabilized at 2.53 mg/dL in the last 48 hours. There is no need for kidney replacement therapy. Continue to volume expand the patient with current IV fluid for 1 more day. Renal function remained stable, we can stop IV fluid tomorrow. Hypernatremia. Likely due to dehydration from diarrhea. Diarrhea has been slowing down. Serum sodium was 151 mmol/L on 07/22/2022. Serum sodium is better with IV D5W and is 143 mmol/L today. Agree with volume expansion using D5W since he is hemodynamically stable. If serum sodium is 140 mmol/L or less, we can stop D5W tomorrow. Metabolic acidosis. Secondary to both diarrhea and DELGADO. Continue treat DELGADO as discussed above. Continue treatment of C. difficile colitis as per hospital medicine service. Serum bicarbonate level improved from 13 mmol/L on 07/24/2022 up to 15 mmol/L today. Hyperphosphatemia. The patient has mild hyperphosphatemia with serum phosphorus level of 5.3 mg/dL today. This is due to DELGADO. No need for phosphorus binder at this point.
[2022-07-26 11:51] VITALS: O2SAT 96
--- NOTE | 2022-07-26 14:59 | PN.HOSP_ITS ---
Subjective Subjective Patient seen and examined. He has no active complaints today. Diarrhea is improved and he had only one episode overnight. Review of systems is otherwise negative. Objective Data Objective Data Vital Signs: Vital Signs Temp Pulse Resp BP Pulse Ox O2 Del Method 98.7 F 93 18 105/78 96 Room Air 07/26/22 09:17 07/26/22 09:17 07/26/22 09:17 07/26/22 09:17 07/26/22 11:51 07/26/22 09:17 Oxygen Delivery Method Room Air Weight: 179 lb 7.3 oz Body Mass Index (BMI) 23.6 Intake & Output: Intake and Output for Last 24 Hours 07/24/22 07/25/22 07/26/22 23:59 23:59 23:59 Intake Total 3533.75 / 3533.75 1766.25 / 1886.25 1120 / 1120 Output Total 950 / 1150 1000 / 1000 Balance 2583.75 / 2383.75 766.25 / 886.25 1120 / 1120 Lab / Micro Data Result Diagrams: 07/26/22 06:40 07/26/22 06:40 Labs: Laboratory Results - last 24 hr 07/22/22 11:00: Diff Path Review Reviewed 07/23/22 07:24: Diff Path Review Reviewed 07/26/22 06:40: Sodium 143, Potassium 3.8, Chloride 120 H, Carbon Dioxide 15.0 L , BUN 45 H, Creatinine 2.53 H, Estim Creat Clear Calc 24.56, Est GFR (MDRD) Af Amer 31 L, Est GFR (MDRD) Non-Af 26 L, BUN/Creatinine Ratio 17.8, Glucose 88, Calcium 7.3 L, Phosphorus 5.3 H, Magnesium 1.7, Albumin 1.5 L 07/26/22 06:40: WBC 5.6, RBC 2.81 L, Hgb 8.9 L, Hct 28.7 L, MCV 102.1 H, MCH 31.7, MCHC 31.0 L, RDW Std Deviation 66.3 H, RDW Coeff of Rain 17.7 H, Plt Count 137 L, MPV 10.4, Immature Gran % (Auto) 3.600 H, Neut % (Auto) 62.5, Lymph % (Auto) 23.4, [place] % (Auto) 7.8, Eos % (Auto) 1.8, Baso % (Auto) 0.9, Absolute Neuts (auto) 3.5, Absolute Lymphs (auto) 1.32, Nucleated RBC % 0.4, Platelet Estimate SLT DEC, Anisocytosis 1+, Macrocytosis 1+ Radiography Diagnostic Testing: Radiology Impression Liver Ultrasound 07/24/22 07:34 IMPRESSION: Partially visualized ascites. Technically limited study. The liver appears fatty infiltrated. . 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 Multiple right renal cysts seen on prior study. No hydronephrosis. Persistent adrenal mass. Limited visualization. Status post cholecystectomy. Limited study recommend consideration for follow up CT scan of the abdomen and pelvis for clarification. Electronically Signed: Sharonda Lovelace MD at 22:14 EST Reading Location ID and State: [facility] / [place] Tel , Service support , Physical Exam Const alert, oriented x3 and no apparent distress HEENT head/scalp atraumatic, moist oral mucous membranes and oropharynx normal Head and Scalp: normocephalic Mouth: oral and palatal mucosa normal Eyes PERRL, EOMs intact bilaterally and conjunctivae normal Neck no lymphadenopathy, supple and no JVD Resp normal respiratory effort, no retractions, no use of accessory muscles and clear to auscultation bilaterally Cardio regular rate, regular rhythm, S1 normal heart sound, S2 normal heart sound and no murmurs GI normal to inspection, nondistended, normoactive bowel sounds, soft to palpation, non-tender and non-distended Extremity normal to inspection, full ROM and no clubbing, cyanosis or edema Neuro oriented x3, CN's II-XII intact bilaterally, moves all extremities and no focal motor deficits Sensorium / Orientation: awake and alert Motor Exam: strength 5/5 throughout Psych affect normal Assessment & Plan Assessment/Plan (1) Hypernatremia: (2) Acute kidney injury: (3) C. difficile colitis: (4) COVID: PLAN: Plan #C Diff infection * diarrhea is improving. Had only one episode of diarrhea. This is his second episode of C Diff infection * on oral vancomycin, to complete a 14 day course * #Hypernatremia: resolved #COVID 19 infection * asymptomatic. On room air * diagnosed On July 17. 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 * bicarb is still 15. nephrology on board. Anion gap is WNL * nephrology o n board. 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 On oral iron DVT prophylaxis: heparin Disposition: for dc home with home health care over hte next 24-48 hours once kidney function improves. Charges/Coding Visit Charges Inpatient E&M: 59863 Subs Hosp L2
[2022-07-26 15:00] VITALS: BP 131/71; PULSE 90; RESP 18; TEMP 36.3; O2SAT 98
[2022-07-26 21:00] VITALS: BP 136/92; PULSE 82; RESP 20; TEMP 36.4; O2SAT 98
[2022-07-26 22:00] VITALS: O2SAT 97
[2022-07-26] MEDS: Tamsulosin HCl 0.4 MG Capsule PO (23:13)
[2022-07-27 03:00] VITALS: BP 117/77; PULSE 78; RESP 18; TEMP 36.3; O2SAT 97
[2022-07-27] MEDS: Vancomycin 125 MG/5 ML Susp PO.SYRINGE PO ×2 (05:31→12:22)
[2022-07-27] MEDS: Heparin Injection (Vial) 5,000 UNIT/ML VIAL 5000 UNIT SC (05:31)
[2022-07-27 07:50] LABS: Absolute Lymphocyte Count 1.59 X10^3/uL (0.83-4.51); Absolute Neutrophil Count 3.5 X10^3/uL (2.0-7.7); Basophil# 0.04 X10^3/uL; Basophil% 0.7 % (0-1); Eosinophil# 0.07 X10^3/uL; Eosinophils% 1.2 % (0-5); Hematocrit 28.1 % (40-54); Hemoglobin 9.1 g/dL (13.0-16.5); Lymphocyte # 1.59 X10^3/ul (0.83-4.51); Lymphocyte % 27.2 % (19-41); Mean Corp Hgb Conc 32.4 g/dL (32-36); Mean Corpuscular Hgb 32.3 pg (27.0-32.0); Mean Corpuscular Volume 99.6 fL (80-94); Monocyte# 0.44 X10^3/uL; Monocyte% 7.5 % (0-10); NRBC Flagged by Analyzer 0 % (0-5); Neutrophil # 3.49 X10^3/uL (2.7-7.7); Neutrophil % 59.6 % (47-70); POSITIVE MORPHOLOGY YES; Platelet Count 135 K/mm3 (150-450); RBC Distribution Width CV 17.7 % (11.6-14.6); RBC Distribution Width SD 65.2 fl (35.1-43.9); Red Blood Count 2.82 M/mm3 (4.6-6.2); White Blood Count 5.9 K/mm3 (4.4-11.0)
[2022-07-27 08:18] LABS: Albumin, Serum 1.4 g/dL (3.2-5.0); BUN 44 mg/dL (7-18); BUN/Creat Ratio 17.1 RATIO (10-20); Calcium,Total 7.1 mg/dL (8.5-10.1); Chloride 118 mmol/L (98-107); Creatinine, Serum 2.58 mg/dL (0.70-1.30); EST Glomerular Filtration Rate 25 mL/min (>60); Est Glom Filt Rate - Afr Amer 31 mL/min (>60); Estimated Creatinine Clearance 24.09 ml/min; Glucose 82 mg/dL (74-106); Phosphorus 5.5 mg/dL (2.5-4.9); Potassium 3.8 mmol/L (3.5-5.1); Sodium Level 141 mmol/L (136-145)
[2022-07-27 08:26] LABS: Differential Indicated SCAN CRITERIA MET
[2022-07-27 09:28] VITALS: BP 100/62; PULSE 85; RESP 18; TEMP 36.6; O2SAT 97
[2022-07-27] MEDS: Cholecalciferol (VIT D3) 25 MCG TABLET (1,000 UNITS) 50 MCG PO (09:34)
[2022-07-27] MEDS: Aspirin E.C. 81 MG Tablet PO (09:34)
[2022-07-27] MEDS: Multivitamins,Therapeutic Tablet 1 TABLET PO (09:34)
[2022-07-27] MEDS: Ascorbic Acid 500 MG Tablet PO (09:34)
[2022-07-27] MEDS: Cyanocobalamin 500 MCG Tablet PO (09:35)
[2022-07-27] MEDS: Menthol/Lanolin/Calamine/Znox 113 GM Tube 1 APPLIC TOPICAL (09:35)
[2022-07-27] MEDS: Iron Polysaccharide Complex 150 MG CAPSULE PO (09:35)
[2022-07-27 09:45] LABS: Anisocytosis 2+; Differential Comment SCANNED; Macrocytosis 1+; Microcytosis 1+
--- NOTE | 2022-07-27 10:27 | PN.RENAL_ITS ---
Subjective Subjective Resting quietly in recliner chair, no complaints. No overnight events. Objective Data Objective Data Vital Signs: Vital Signs Temp Pulse Resp BP Pulse Ox O2 Del Method 97.8 F 85 18 100/62 97 Room Air 07/27/22 09:28 07/27/22 09:28 07/27/22 09:28 07/27/22 09:28 07/27/22 09:28 07/27/22 09:43 Oxygen Delivery Method Room Air Weight: 81.4 kg Body Mass Index (BMI) 23.6 Intake & Output: Intake and Output for Last 24 Hours 07/25/22 07/26/22 07/27/22 23:59 23:59 23:59 Intake Total 1766.25 / 1886.25 3502.5 / 3702.5 300 / 300 Output Total 1000 / 1000 1500 / 1500 350 / 350 Balance 766.25 / 886.25 2002.5 / 2202.5 -50 / -50 Lab / Micro Data Result Diagrams: 07/27/22 07:00 07/27/22 07:00 Labs: Laboratory Results - last 24 hr 07/27/22 07:00: WBC 5.9, RBC 2.82 L, Hgb 9.1 L, Hct 28.1 L, MCV 99.6 H, MCH 32.3 H, MCHC 32.4, RDW Std Deviation 65.2 H, RDW Coeff of Rain 17.7 H, Plt Count 135 L , MPV 11.0, Immature Gran % (Auto) 3.800 H, Neut % (Auto) 59.6, Lymph % (Auto) 27.2, [place] % (Auto) 7.5, Eos % (Auto) 1.2, Baso % (Auto) 0.7, Absolute Neuts (auto) 3.5, Absolute Lymphs (auto) 1.59, Nucleated RBC % 0, Differential Comment SCANNED, Anisocytosis 2+, Microcytosis 1+, Macrocytosis 1+ 07/27/22 07:00: Sodium 141, Potassium 3.8, Chloride 118 H, Carbon Dioxide 14.0 L , BUN 44 H, Creatinine 2.58 H, Estim Creat Clear Calc 24.09, Est GFR (MDRD) Af Amer 31 L, Est GFR (MDRD) Non-Af 25 L, BUN/Creatinine Ratio 17.1, Glucose 82, Calcium 7.1 L, Phosphorus 5.5 H, Albumin 1.4 L Physical Exam Narrative Alert and oriented x3, no apparent distress Cardio: S1, S2, RRR Respiratory: Lung sounds clear anteriorly and posteriorly. On room air. No wheezes, rhonchi rales noted GI: Abdomen soft, positive bowel sounds Extremities: 1+ edema noted bilateral lower legs Assessment & Plan Assessment/Plan (1) Acute kidney injury: (2) Metabolic acidosis: (3) Hypernatremia: (4) Hyperphosphatemia: (5) C. difficile colitis: PLAN: Plan - Nonoliguric, hypovolemic DELGADO associated with nephrotic range proteinuria and hypoalbuminemia. Current DELGADO likely from volume depletion (diarrhea, poor oral intake). 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 Patient has not been on any REGAN-I or ARB's. Serum creatinine 3.04 mg/dL on admission (07/22) and currently creatinine has leveled off around 2.5 mg/dL - Serum creatinine prior to June 2022 was around 1.2 to 1.3 mg/dL. 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 - will try and send today anti-TARUN 2R antibody. Definitive diagnosis of glomerular disease would require kidney biopsy although we do not think that this would change treatment at this time. - Serum creatinine appears to have stabilized at 2.3 to 2.4 mg/dL prior to last discharge. - Hypernatremia likely due to dehydration from diarrhea and poor oral intake. Diarrhea has been slowing down. Serum sodium was 151 mmol/L on 07/22/2022. Serum sodium is better with IV D5W and is 141 mmol/L today. I encouraged frida suggs to increase free water intake, solute and protein intake as well -Metabolic acidosis from DELGADO and diarrhea. Patient reports loose bowel movements have lessened. Given lower extremity edema we have not started oral sodium bicarbonate and since diarrhea seems to be improving will hold off on any sodium bicarbonate tablets at this time - bps acceptable, not on any antihypertensives - on oral vanco -We will arrange for hospital follow-up - discussed with discharge team and possible discharge to home today with [facility]. Ok for discharge per renal standpoint
--- NOTE | 2022-07-27 11:29 | DS.PCM_ITS ---
Providers Date of Admission: 07/22/22 Date of Discharge: 07/27/22 Primary Care Physician: Dr. Lex Gold MD Consultations 07/24/22 08:32 Consult: Nephrology Routine Consulting Provider: Jaycee Blanchard Reason for Consult: worsening renal function, electrolyte disturbance EMERGENT Consult: No MD Notified: Yes Date Notified: 07/24/22 Time Notified: 08:33 Method of Notification: via pill machine operator Reason For Visit: ACUTE C. DIFF Diagnosis Discharge Diagnosis (1) Acute kidney injury: Status: Acute Code(s): N17.9 - Acute kidney failure, unspecified (2) Metabolic acidosis: Status: Acute Code(s): E87.20 - Acidosis, unspecified (3) Hypernatremia: Status: Acute Code(s): E87.0 - Hyperosmolality and hypernatremia (4) Hyperphosphatemia: Status: Acute Code(s): E83.39 - Other disorders of phosphorus metabolism (5) C. difficile colitis: Status: Acute Code(s): A04.72 - Enterocolitis due to Clostridium difficile, not specified as recurrent Plan #C Diff infection * diarrhea is improving. Had only one episode of diarrhea. This is his second episode of C Diff infection * on oral vancomycin, to complete a 14 day course * #Hypernatremia: resolved #COVID 19 infection * asymptomatic. On room air * diagnosed On July 17. 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 * bicarb is still 15. nephrology on board. Anion gap is WNL * nephrology o n board. 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 On oral iron DVT prophylaxis: heparin Disposition: for ca home with home health care over hte next 24-48 hours once kidney function improves. Medications at Discharge Home Medications omeprazole 40 mg capsule,delayed release 40 mg PO DAILY ACID REFLUX 06/30/16 tamsulosin 0.4 mg capsule 0.4 mg PO QHS PROSTATE 05/26/17 aspirin 81 mg tablet,delayed release 81 mg PO DAILY heart health 06/26/22 acetaminophen 325 mg tablet 325 - 650 mg PO Q6H PRN Pain 07/22/22 ascorbic acid (vitamin C) 500 mg tablet (Vitamin C) 500 mg PO BID SUPPLEMENT 07/22/22 cholecalciferol (vitamin D3) 50 mcg (2,000 unit) tablet (Vitamin D3) 50 mcg PO DAILY SUPPLEMENT 07/22/22 cyanocobalamin (vitamin B-12) 500 mcg tablet 500 mcg PO DAILY SUPPLEMENT 07/22/22 dextromethorphan-benzocaine 5 mg-7.5 mg lozenges 1 ralph PO Q2H PRN SORE THROAT/COUGH 07/22/22 ondansetron 4 mg disintegrating tablet 4 mg PO Q4H PRN NAUSEA/VOMITING 07/22/22 polysaccharide iron complex 150 mg iron capsule (iFerex 150) 150 mg PO DAILY SSUPPLEMENT 07/22/22 zinc sulfate 50 mg zinc (220 mg) tablet 50 mg PO DAILY SUPPLEMENT 07/22/22 vancomycin 50 mg/mL oral solution 125 mg (2.5 mL) PO Q6H 7 days #70 mL 07/27/22 Hospital Course Operations None Procedures None Summary of Care Provided Minutes Spent on Discharge: 50 Hospital Course: Patient is an 86-year-old male with a past medical history as outlined was admitted through the ED on 07/22/2022 with complaint of generalized weakness as well as poor intake and abnormal labs. He had recently been admitted for C. difficile and acute kidney injury in June 2022 and was discharged to the custodial facility. He had not been eating or drinking well in the custodial facility and had been diagnosed with COVID whilst there on 07/18/2022. He had however remained asymptomatic from COVID standpoint. However he started having the above-mentioned symptoms when he was brought in to the ED. On admission labs showed sodium of 151 with bicarb of 16 and creatinine of 2.97 which was up from his baseline of 2.44. Patient tested positive again for C. difficile though he had completed a course of oral vancomycin. He was managed for hyponatremia and debility due to COVID-19 infection and C. difficile infection. He was hydrated with IV fluids. He was placed on p.o. vancomycin. Creatinine gradually trended down to his baseline. He remained on room air. His diarrhea subsequently stopped. He was on p.o. vancomycin. He worked with physical therapy. There was recommended that patient would benefit from custodial facility, patient was adamant about not going. He was therefore discharged home on 07/27/2022 with home health care. He is to follow-up with his primary care doctor within 1 to 2 weeks. Patient seen and examined prior to discharge. He feels much better and had no active complaints. He had an uneventful night. Review of systems otherwise negative. Labs and vitals reviewed. Home medication reviewed and reconciled. Physical Exam Const alert, oriented x3 and no apparent distress General Appearance: cooperative and comfortable Orientation / Consciousness: awake Exam Limitations: no limitations HEENT normocephalic, head/scalp atraumatic, hearing grossly normal bilaterally, moist oral mucous membranes and oropharynx normal Mouth: oral and palatal mucosa normal Eyes PERRL, EOMs intact bilaterally and conjunctivae normal Neck no lymphadenopathy, supple and no JVD Resp normal respiratory effort, no retractions, no use of accessory muscles and clear to auscultation bilaterally Cardio regular rate, regular rhythm, S1 normal heart sound, S2 normal heart sound and no murmurs GI normal to inspection, nondistended, normoactive bowel sounds, soft to palpation, non-tender and non-distended Extremity normal to inspection, full ROM and no clubbing, cyanosis or edema Skin no rashes or lesions noted Neuro oriented x3, CN's II-XII intact bilaterally, moves all extremities and no focal motor deficits Sensorium / Orientation: awake and alert Motor Exam: strength 5/5 throughout Psych affect normal Weight / BMI Weight Weight: 179 lb 7.3 oz Body Mass Index (BMI) 23.6 ABG / Lab / Microbiology Data Result Diagrams: 07/27/22 07:00 07/27/22 07:00 Laboratory: Laboratory Results - last 24 hr 07/27/22 07:00: WBC 5.9, RBC 2.82 L, Hgb 9.1 L, Hct 28.1 L, MCV 99.6 H, MCH 32.3 H, MCHC 32.4, RDW Std Deviation 65.2 H, RDW Coeff of Rain 17.7 H, Plt Count 135 L , MPV 11.0, Immature Gran % (Auto) 3.800 H, Neut % (Auto) 59.6, Lymph % (Auto) 27.2, Benson % (Auto) 7.5, Eos % (Auto) 1.2, Baso % (Auto) 0.7, Absolute Neuts (auto) 3.5, Absolute Lymphs (auto) 1.59, Nucleated RBC % 0, Differential Comment SCANNED, Anisocytosis 2+, Microcytosis 1+, Macrocytosis 1+ 07/27/22 07:00: Sodium 141, Potassium 3.8, Chloride 118 H, Carbon Dioxide 14.0 L , BUN 44 H, Creatinine 2.58 H, Estim Creat Clear Calc 24.09, Est GFR (MDRD) Af Amer 31 L, Est GFR (MDRD) Non-Af 25 L, BUN/Creatinine Ratio 17.1, Glucose 82, Calcium 7.1 L, Phosphorus 5.5 H, Albumin 1.4 L D/C Instructions Discharge Diet: Low fat / Low cholesterol Discharge Activity: Return to Normal Activity Weight Bearing Status: Weight bearing as tolerated Call your doctor if you observe: Fever of 101 or Higher, Shortness of breath, Dizziness, Swelling in the ankles, Chest pain, Increased palpitations (irregular heartbeat) and - (worsening diarrhea) Meaningful Use Info Meaningful Use Diagnoses (Choose all that apply): None applicable Discharge Plan Admission Admit Date/Time: 07/22/22 16:56 Primary Reason for Your Visit: C diff infection Attending Provider: Heather Rey Primary Care Provider: Lex Gold Consulting Providers: Melinda Suarez ; Jaycee Blanchard ; William Ni Instructions Patient Instructions: C diff Discharge Orders/Prescriptions Prescriptions: New vancomycin 50 mg/mL recon soln 125 mg PO Q6H 7 Days Qty: 70 0RF Continued omeprazole 40 MG capsule 40 mg PO DAILY tamsulosin 0.4 MG capsule 0.4 mg PO QHS aspirin 81 mg tablet,delayed release (DR/EC) 81 mg PO DAILY acetaminophen 325 mg Tablet 325 - 650 mg PO Q6H PRN (Reason: Pain) polysaccharide iron complex [iFerex 150] 150 mg iron capsule 150 mg PO DAILY zinc sulfate 50 mg zinc (220 mg) Tablet 50 mg PO DAILY cyanocobalamin (vitamin B-12) 500 mcg tablet 500 mcg PO DAILY ascorbic acid (vitamin C) [Vitamin C] 500 mg Tablet 500 mg PO BID ondansetron 4 mg Tablet,Disintegrating 4 mg PO Q4H PRN (Reason: NAUSEA/VOMITING) dextromethorphan-benzocaine 5-7.5 mg Lozenge 1 ralph PO Q2H PRN (Reason: SORE THROAT/COUGH) cholecalciferol (vitamin D3) [Vitamin D3] 50 mcg (2,000 unit) Tablet 50 mcg PO DAILY Discontinued vancomycin 25 mg/mL Recon Soln 125 mg PO 4X/DAY Referrals / Follow Up: Sidra Carias MD [Med Staff - Consulting] - 08/18/22 9:30 am (take discharge paperwork to apt) Lex Gold MD [Primary Care Provider] - 08/09/22 1:40 pm Disposition Disposition (needs filled in before D/C Order can be placed): Home Health Service Charges/Coding Visit Charges Inpatient E&M: 21966 Disch Hosp
--- NOTE | 2022-07-27 11:32 | CASEMGMT ---
Updated Nandini at [facility] that pt will dc today.
== END 2022-07-27 13:10 | disposition home health service (06) | DRG 371 ==
LOC: ED 17:12 → MS3 17:17
PROVIDERS: Family Medicine; Internal Medicine Nephrology; Nurse Practitioner Adult Health; Admitting Provider Internal Medicine; Emergency Provider Student in an Organized Health Care Education/Training Program; PCP Internal Medicine; Visit Provider Student in an Organized Health Care Education/Training Program
DX: A04.72 Enterocolitis due to Clostridium difficile, not specified as recurrent (principal); U07.1 COVID-19; J12.82 Pneumonia due to coronavirus disease 2019; E87.0 Hyperosmolality and hypernatremia; N17.9 Acute kidney failure, unspecified; N18.4 Chronic kidney disease, stage 4 (severe); E87.20 Acidosis, unspecified; E83.39 Other disorders of phosphorus metabolism; E86.0 Dehydration; I12.9 Hypertensive chronic kidney disease with stage 1 through stage 4 chronic kidney disease, or unspecified chronic kidney disease; I25.10 Atherosclerotic heart disease of native coronary artery without angina pectoris; E78.5 Hyperlipidemia, unspecified; E88.09 Other disorders of plasma-protein metabolism, not elsewhere classified; D50.9 Iron deficiency anemia, unspecified; E87.8 Other disorders of electrolyte and fluid balance, not elsewhere classified; Z79.82 Long term (current) use of aspirin; Z98.84 Bariatric surgery status; R53.81 Other malaise; R09.02 Hypoxemia; Z87.891 Personal history of nicotine dependence; Z79.899 Other long term (current) drug therapy; Z90.3 Acquired absence of stomach [part of]; Z85.028 Personal history of other malignant neoplasm of stomach
CPT/HCPCS: 36415; 76705; 80048; 80053; 80069; 80076; 83735; 84100; 85025; 97110; 97162; 97165; 97530; 97535; 97802; 99285; J7030; A4216

== ENCOUNTER 2022-07-31 09:49 | Inpatient (IN) | payer MEDICARE, SELFPAY ==
[2022-07-31] VITALS (9 sets, daily range): BP systolic 97–136; BP diastolic 65–98; PULSE 47–102; RESP 16–18; TEMP 36.3–36.8; O2SAT 95–99; BMI 25.3; BMI 24.3
--- NOTE | 2022-07-31 10:28 | CT_ITS ---
STUDY: CT BRAIN WITHOUT CONTRAST REASON FOR EXAM: Male, 86 years old. Headache after fall RADIATION DOSAGE (If Supplied By Facility): CTDIvol = ( 44.99 ) mGy, DLP = ( 829.85 ) mGycm TECHNIQUE: Transaxial CT imaging of the brain was performed without administration of intravenous contrast material. Individualized dose optimization techniques were used for this CT. COMPARISON: 06/26/2022 FINDINGS: Normal soft tissue structures. Normal calvarium. There is mild cerebral atrophy with widening of the extra-axial spaces and ventricular dilatation. There are areas of decreased attenuation within the white matter tracts of the supratentorial brain, consistent with microvascular disease changes. Normal basal ganglia and thalami. Normal brainstem. There is mild cerebellar atrophy. Evidence of active attenuation in the inferior left occipital lobe new since the previous study suggesting an infarct has occurred between the previous study in this one. There is no intracranial hemorrhage. There are no findings of an acute ischemic infarction. Air-fluid level in the left maxillary sinus CT/Brain/Head without Contrast IMPRESSION: Chronic involutional changes of the brain. No acute hemorrhage Attenuation in the inferior left sacral lobe suggests an infarct has occurred between the previous study and current study. Left maxillary sinusitis Electronically Signed: Johnson Krueger MD at 12:04 EST ,
--- NOTE | 2022-07-31 10:28 | RAD_ITS ---
STUDY: X-RAY - LEFT RADIUS AND ULNA REASON FOR EXAM: Male, 86 years old. Pain TECHNIQUE: 2 view(s) of the forearm. COMPARISON: None. FINDINGS: There is no demonstrated soft tissue swelling. Normal visualized radius. Normal visualized ulna. Incidental note is made of significant degenerative arthrosis of the first CMC joint. RAD/Forearm 2 Views IMPRESSION: No demonstrated fracture or suspicious osseous lesion Electronically Signed: Johnson Krueger MD at 11:54 EST ,
--- NOTE | 2022-07-31 10:28 | RAD_ITS ---
STUDY: X-RAY - LEFT HUMERUS REASON FOR EXAM: Male, 86 years old. Pain TECHNIQUE: 2 view(s) of the humerus. COMPARISON: None. FINDINGS: There is diffuse demineralization of the humerus. There is no demonstrated fracture or osseous destructive process. There is no demonstrated soft tissue abnormality. RAD/Humerus min 2 Views IMPRESSION: Demineralization of the osseous structures. No demonstrated fracture Electronically Signed: Johnson Krueger MD at 12:10 EST ,
--- NOTE | 2022-07-31 10:28 | EKG12_ITS ---
Test Reason : FALLING Blood Pressure : / mmHG Vent. Rate : 089 BPM Atrial Rate : 089 BPM P-R Int : 184 ms QRS Dur : 136 ms QT Int : 396 ms P-R-T Axes : 107 025 033 degrees QTc Int : 481 ms Sinus rhythm with occasional Premature ventricular complexes Indeterminate axis Right bundle branch block Abnormal ECG Confirmed by NATALY ROLLE, RANDA ([id number]), web content editor MARIA EUGENIA TAO ([id number]) on 08/01/2022 12:53:29 PM Referred By: HELEN Confirmed By:RANDA INGRAM MD
--- NOTE | 2022-07-31 10:28 | RAD_ITS ---
STUDY: X-RAY CHEST REASON FOR EXAM: Male, 86 years old. Fever and cough TECHNIQUE: Single AP portable view of the chest. COMPARISON: 07/03/2022 FINDINGS: EKG leads overlie the chest Lungs are underexpanded with persistent evidence of mild interstitial edema. There are increased interstitial markings in both lung bases but I suspect this is more likely a result of the poor inspiratory effort. Normal size heart. Normal mediastinum and gui. Normal visualized pulmonary arteries. Normal visualized aortic arch and descending thoracic aorta. There are diffuse degenerative changes of the visualized thoracic spine. Normal visualized ribs, clavicles, and shoulders. There is no demonstrated abnormality of the visualized soft tissue structures of the upper abdomen. RAD/Chest 1 View (Portable) IMPRESSION: Persistent evidence of mild interstitial edema without organized infiltrate or effusion Electronically Signed: Johnson Krueger MD at 11:53 EST ,
--- NOTE | 2022-07-31 10:30 | EX.ED.DYSGE1 ---
HPI History of Present Illness Chief Complaint: Weakness Narrative Narrative: 86-year-old male presents with his daughter and son-in-law because of generalized weakness and syncopal episode reported last evening. They relate history that he was seen in the emergency department for dehydration last month, was admitted, and went to a long-term facility was [place]. There was a COVID outbreak there and he and for other patients were brought back to the hospital. He then spent time in isolation because he had COVID last month. He stayed a few weeks in the hospital and developed C. difficile for which she is currently being treated. He did not want to return to the long-term facility and wanted to go home so he was released from the hospital 4 days ago. Family states that home health care has only visited once that they were getting set up. Last night he was going to the bathroom, states he felt weak and fell to the floor. He hit his left cheek and his left arm. He states he must of been on the ground for 5 hours as his is in the back of the house and call the family today to call 911. However, his does have dementia and is unable to care for him. He is supposed to look at assisted living tomorrow. He and the family state that he needs 24-hour care in assisted living. He states that he has been eating and drinking, but is still having diarrhea from his C. difficile. They also state that his decubitus ulcer is worsening. [facility] Medical History Abdominal aortic aneurysm (AAA) Abdominal aortic aneurysm without rupture Acute kidney injury Anasarca Atherosclerotic heart disease of [place] coronary artery without angina pectoris BPH (benign prostatic hyperplasia) C. difficile colitis CAD (coronary artery disease) Chronic kidney disease COVID Esophageal cancer Essential hypertension Gastric adenocarcinoma Generalized weakness Gout History of left heart catheterization (LHC) (~06/26/19) HTN (hypertension) Hyperlipidemia Hyperphosphatemia Kidney stones Macrocytic anemia Metabolic acidosis Murmur, cardiac Non-rheumatic aortic stenosis Old myocardial infarction Presence of stent in coronary artery (~09/05/02) Severe protein-calorie malnutrition Sleep apnea Home Medications omeprazole 40 mg capsule,delayed release 40 mg PO DAILY ACID REFLUX 06/30/16 [History Last Taken 07/21/22] tamsulosin 0.4 mg capsule 0.4 mg PO QHS PROSTATE 05/26/17 [History Last Taken 07/21/22] aspirin 81 mg tablet,delayed release 81 mg PO DAILY heart health 06/26/22 [History Last Taken 07/21/22] acetaminophen 325 mg tablet 325 - 650 mg PO Q6H PRN Pain 07/22/22 [History Last Taken Unknown] ascorbic acid (vitamin C) 500 mg tablet (Vitamin C) 500 mg PO BID SUPPLEMENT 07/22/22 [History Last Taken 07/21/22] cholecalciferol (vitamin D3) 50 mcg (2,000 unit) tablet (Vitamin D3) 50 mcg PO DAILY SUPPLEMENT 07/22/22 [History Last Taken 07/21/22] cyanocobalamin (vitamin B-12) 500 mcg tablet 500 mcg PO DAILY SUPPLEMENT 07/22/22 [History Last Taken 07/21/22] dextromethorphan-benzocaine 5 mg-7.5 mg lozenges 1 ralph PO Q2H PRN SORE THROAT/COUGH 07/22/22 [History Last Taken Unknown] ondansetron 4 mg disintegrating tablet 4 mg PO Q4H PRN NAUSEA/VOMITING 07/22/22 [History Last Taken Unknown] polysaccharide iron complex 150 mg iron capsule (iFerex 150) 150 mg PO DAILY SSUPPLEMENT 07/22/22 [History Last Taken 07/21/22] zinc sulfate 50 mg zinc (220 mg) tablet 50 mg PO DAILY SUPPLEMENT 07/22/22 [History Last Taken 07/21/22] vancomycin 50 mg/mL oral solution 125 mg (2.5 mL) PO Q6H 7 days #70 mL 07/27/22 [Rx Last Taken Unknown] Allergy/AdvReac Type Severity Reaction Status Date / Time adhesive Allergy burn-like Verified 07/31/22 10:02 cortisone [Cortisone] Allergy Rash Verified 07/31/22 10:02 simvastatin AdvReac joint/muscle Verified 07/31/22 10:02 aches Family History Father Congestive heart failure Mother Colon cancer Surgical History H/O right inguinal hernia repair History of cholecystectomy History of cholecystectomy History of gastrectomy (~07/2014) Presence of coronary angioplasty implant and graft (~09/05/02) S/P TAVR (transcatheter aortic valve replacement) (~12/27/19) Social History household members: spouse Smoking Status: Former smoker how long ago did patient quit smoking: Quit ~20 yrs prior, smoked since late 20s until quit, pipe specifically. alcohol intake: never substance use type: does not use ROS ROS ED ROS Narrative Constitutional: No fever, no chills. Positive generalized weakness. Reported syncopal episode. HEENT: No sore throat. No neck pain. No loss of vision. No rhinorrhea. Bruise to left cheek. Cardiovascular: No chest pain. No palpitations. No pedal edema. Respiratory: No cough, no shortness of breath. Abdominal: No abdominal pain. No nausea. No vomiting. Positive diarrhea, being treated for C. difficile. Genitourinary: No dysuria. No hematuria. Musculoskeletal: No myalgias. Left arm and forearm pain. Neurologic: No headaches. No dizziness. No lightheadedness. Skin: No rash. No change in color. Psychiatric: No depression. No anxiety. EXAM Physical Exam Narrative Exam Narrative: Afebrile. Vital signs noted. GCS 15. ABCs are intact. HEENT: Normocephalic. Small reddened area to left cheek. PERRL, EOMI. Neck soft and supple. No point tenderness or step off. Cardiovascular: Regular rate and rhythm. No murmurs, rubs, or gallops appreciated. Respiratory: No tachypnea. Lungs clear to auscultation bilaterally. Gastrointestinal: Abdomen soft, nontender, with normoactive bowel sounds. No rebound or guarding. Neurological: Awake. Alert. Nonfocal, nonlateralizing. Skin: No rash. Normal color. No pallor. Musculoskeletal: No pedal edema. Full range of motion extremities. Diffuse tenderness to palpation left forearm and left upper arm. Const Vital Signs: 07/31/22 09:50 07/31/22 10:00 Temperature 97.7 F L Temperature Source Oral Pulse Rate 90 Respiratory Rate 16 Respiratory Effort Normal Non-Labored Respiratory Pattern Normal Blood Pressure 136/98 H Blood Pressure Mean 110 Pulse Ox 95 Oxygen Delivery Method Room Air MDM MDM MDM Narrative Medical decision making narrative: Comprehensive work-up was pursued. Patient will be checked for dehydration. He was bolused normal saline 1 L intravenously. Additionally, in discussion with the patient and his family, they feel it is unsafe for him to go home and that he needs at least assisted living and placement hopefully at [place]. Daughter states that reportedly they have a room ready for him tomorrow and that he would need assessment, but given his frequent falls and weakness, they present him to the emergency department today. Given his fall, I obtained a CT of the brain which radiology interpreted as no evidence of acute fracture, no acute hemorrhage. I also reviewed the imaging. CBC shows normal white count of 9.1, hemoglobin stable at 9.7, hematocrit 30.9. Platelet count low at 143. CMP is consistent with dehydration as his sodium has risen again to 147 when it had been normal upon discharge. Potassium normal at 4.0 with an elevated chloride of 124. BUN of 56. He has a chronic kidney injury with creatinine elevated at 2.93. AST and ALT are normal. CK is also normal at 60. Chest x-ray interpreted by myself does not show consolidation, no significant change from previous, and he does have history of COVID. Additionally, x-ray of the humerus and forearm also interpreted by myself shows no evidence of fracture. At this point in time, I do feel that he merits at least observation so that he can be placed at [place]. Patient was discussed with the hospitalist. I spoke with Dr. Rey who would like to observation on [facility]. Disposition assigned to observation in stable condition. Lab Data Attestation: I reviewed the patient's lab results. Labs: Laboratory Results - last 24 hr 07/31/22 07/31/22 11:18 11:18 WBC 9.1 RBC 3.02 L Hgb 9.7 L Hct 30.9 L MCV 102.3 H MCH 32.1 H MCHC 31.4 L RDW Std Deviation 70.9 H RDW Coeff of Rain 18.9 H Plt Count 143 L MPV 10.9 Immature Gran % (Auto) 2.500 H Neut % (Auto) 75.9 H Lymph % (Auto) 14.4 L Moody % (Auto) 6.3 Eos % (Auto) 0.4 Baso % (Auto) 0.5 Absolute Neuts (auto) 6.9 Absolute Lymphs (auto) 1.31 Nucleated RBC % 0 Differential Comment SCANNED Anisocytosis 2+ Microcytosis 1+ Macrocytosis 1+ Sodium 147 H Potassium 4.0 Chloride 124 H Carbon Dioxide 17.0 L Anion Gap 6 BUN 56 H Creatinine 2.93 H Estim Creat Clear Calc 21.21 Est GFR (MDRD) Af Amer 26 L Est GFR (MDRD) Non-Af 22 L BUN/Creatinine Ratio 19.1 Glucose 84 Calcium 7.5 L Total Bilirubin 0.40 AST 29 ALT 40 Alkaline Phosphatase 431 H Total Creatine Kinase 60 Total Protein 5.9 L Albumin 1.7 L Globulin 4.2 Albumin/Globulin Ratio 0.4 L Radiography Diagnostic Testing: Clinical Impression(s) from Imaging Studies Brain CT 07/31/22 10:28 IMPRESSION: Chronic involutional changes of the brain. No acute hemorrhage Attenuation in the inferior left sacral lobe suggests an infarct has occurred between the previous study and current study. Left maxillary sinusitis Electronically Signed: Johnson Krueger MD at 12:04 EST Reading Location ID and State: [facility] / [place] , Service support , Chest X-Ray 07/31/22 10:28 IMPRESSION: Persistent evidence of mild interstitial edema without organized infiltrate or effusion Electronically Signed: Johnson Krueger MD at 11:53 EST Reading Location ID and State: [facility] / [place] , Service support , Forearm X-Ray 07/31/22 10:28 IMPRESSION: No demonstrated fracture or suspicious osseous lesion Electronically Signed: Johnson Krueger MD at 11:54 EST , Humerus X-Ray 07/31/22 10:28 IMPRESSION: Demineralization of the osseous structures. No demonstrated fracture Electronically Signed: Johnson Krueger MD at 12:10 EST Reading Location ID and State: [facility] / [place] , Service support , Discharge Plan Triage Chief Complaint: Weakness ED Provider: Raghavendra Mays Dx/Rx/DC Orders Clinical Impression: Syncope, Dehydration, Hypernatremia, History of Clostridium difficile infection Prescriptions: No Action omeprazole 40 MG capsule 40 mg PO DAILY tamsulosin 0.4 MG capsule 0.4 mg PO QHS aspirin 81 mg tablet,delayed release (DR/EC) 81 mg PO DAILY acetaminophen 325 mg Tablet 325 - 650 mg PO Q6H PRN (Reason: Pain) polysaccharide iron complex [iFerex 150] 150 mg iron capsule 150 mg PO DAILY zinc sulfate 50 mg zinc (220 mg) Tablet 50 mg PO DAILY cyanocobalamin (vitamin B-12) 500 mcg tablet 500 mcg PO DAILY ascorbic acid (vitamin C) [Vitamin C] 500 mg Tablet 500 mg PO BID ondansetron 4 mg Tablet,Disintegrating 4 mg PO Q4H PRN (Reason: NAUSEA/VOMITING) dextromethorphan-benzocaine 5-7.5 mg Lozenge 1 ralph PO Q2H PRN (Reason: SORE THROAT/COUGH) cholecalciferol (vitamin D3) [Vitamin D3] 50 mcg (2,000 unit) Tablet 50 mcg PO DAILY vancomycin 50 mg/mL recon soln 125 mg PO Q6H 7 Days Qty: 70 0RF Primary Care Provider: Lex Gold Referrals: Lex Gold MD [Primary Care Provider] -
[2022-07-31] MEDS: 0.9% Normal Saline 1,000 ML 1000 ML IV (11:15)
[2022-07-31 11:31] LABS: Absolute Lymphocyte Count 1.31 X10^3/uL (0.83-4.51); Absolute Neutrophil Count 6.9 X10^3/uL (2.0-7.7); Basophil# 0.05 X10^3/uL; Basophil% 0.5 % (0-1); Eosinophil# 0.04 X10^3/uL; Eosinophils% 0.4 % (0-5); Hematocrit 30.9 % (40-54); Hemoglobin 9.7 g/dL (13.0-16.5); Lymphocyte # 1.31 X10^3/ul (0.83-4.51); Lymphocyte % 14.4 % (19-41); Mean Corp Hgb Conc 31.4 g/dL (32-36); Mean Corpuscular Hgb 32.1 pg (27.0-32.0); Mean Corpuscular Volume 102.3 fL (80-94); Mean Platelet Vol. 10.9 fl (6.2-12.0); Monocyte# 0.57 X10^3/uL; Monocyte% 6.3 % (0-10); NRBC Flagged by Analyzer 0 % (0-5); Neutrophil # 6.92 X10^3/uL (2.7-7.7); Neutrophil % 75.9 % (47-70); POSITIVE MORPHOLOGY YES; Platelet Count 143 K/mm3 (150-450); RBC Distribution Width CV 18.9 % (11.6-14.6); RBC Distribution Width SD 70.9 fl (35.1-43.9); Red Blood Count 3.02 M/mm3 (4.6-6.2); White Blood Count 9.1 K/mm3 (4.4-11.0)
[2022-07-31 11:33] LABS: Differential Indicated SCAN CRITERIA MET
[2022-07-31 11:44] LABS: ALB/GLOB Ratio 0.4 RATIO (0.9-2.4); AST(SGOT) 29 U/L (15-37); Alanine Aminotransfer ALT/SGPT 40 U/L (16-61); Albumin, Serum 1.7 g/dL (3.2-5.0); Alkaline Phosphatase 431 U/L (45-117); Anion Gap 6 (5-15); BUN 56 mg/dL (7-18); BUN/Creat Ratio 19.1 RATIO (10-20); CPK Total, Creatine Kinase 60 U/L (39-308); Calcium,Total 7.5 mg/dL (8.5-10.1); Chloride 124 mmol/L (98-107); Creatinine, Serum 2.93 mg/dL (0.70-1.30); EST Glomerular Filtration Rate 22 mL/min (>60); Est Glom Filt Rate - Afr Amer 26 mL/min (>60); Estimated Creatinine Clearance 21.21 ml/min; Globulin 4.2 g/dL (2.2-4.2); Glucose 84 mg/dL (74-106); Protein, Total 5.9 g/dL (6.4-8.2); Sodium Level 147 mmol/L (136-145)
--- NOTE | 2022-07-31 12:14 | PCM.HP.STD ---
HPI - General General Date of Admission: 07/31/22 Date of Service: 07/31/22 Chief Complaint: debility, weakness and mechanical fall HPI Narrative SEEMA CHACON, is a 86 M with a PMh as outlined who presents via the ED on 07/31/2022 with a complaint of weakness. He was only just discharged from the hospital 4 days ago after being admitted and managed for CDiff infection and covid 19 infection. He refused SNF at discharge and was discharged home with home health. He has been weak at home and per family, home health has visited only once. He went to the bathroom and fell at home. He is still having diarrhea. He fell on his left side. Family thinks he was on the ground for ~ 5 hours, and and family was called. THey called 911 and he was brought in to the ED. He is now agreeable to go to assisted living. Family however felt they couldnt take care of him at home today, so he was brought in to the ED. Vitals in the ED were BP of 136/98. ID of 90, RR of 16 and temp of 97.7F. He was satuartinag at 95% on room air. CBC showed hb of 9.7, wbc of 9.1 and platelet of 143. Chemistry showed sodium of 147, with bicarb of 17, and CR of 2.93. He is still having diarrhea. He has been admitted to be managed for debility due to mechanical falls as well as recurrent C. difficile infection [facility] Medical History Abdominal aortic aneurysm (AAA) Abdominal aortic aneurysm without rupture Acute kidney injury Anasarca Atherosclerotic heart disease of [place] coronary artery without angina pectoris BPH (benign prostatic hyperplasia) C. difficile colitis CAD (coronary artery disease) Chronic kidney disease COVID Esophageal cancer Essential hypertension Gastric adenocarcinoma Generalized weakness Gout History of left heart catheterization (LHC) (~06/26/19) HTN (hypertension) Hyperlipidemia Hyperphosphatemia Kidney stones Macrocytic anemia Metabolic acidosis Murmur, cardiac Non-rheumatic aortic stenosis Old myocardial infarction Presence of stent in coronary artery (~09/05/02) Severe protein-calorie malnutrition Sleep apnea Home Medications omeprazole 40 mg capsule,delayed release 40 mg PO DAILY ACID REFLUX 06/30/16 [History Last Taken 07/21/22] tamsulosin 0.4 mg capsule 0.4 mg PO QHS PROSTATE 05/26/17 [History Last Taken 07/21/22] aspirin 81 mg tablet,delayed release 81 mg PO DAILY heart health 06/26/22 [History Last Taken 07/21/22] acetaminophen 325 mg tablet 325 - 650 mg PO Q6H PRN Pain 07/22/22 [History Last Taken Unknown] ascorbic acid (vitamin C) 500 mg tablet (Vitamin C) 500 mg PO BID SUPPLEMENT 07/22/22 [History Last Taken 07/21/22] cholecalciferol (vitamin D3) 50 mcg (2,000 unit) tablet (Vitamin D3) 50 mcg PO DAILY SUPPLEMENT 07/22/22 [History Last Taken 07/21/22] cyanocobalamin (vitamin B-12) 500 mcg tablet 500 mcg PO DAILY SUPPLEMENT 07/22/22 [History Last Taken 07/21/22] dextromethorphan-benzocaine 5 mg-7.5 mg lozenges 1 ralph PO Q2H PRN SORE THROAT/COUGH 07/22/22 [History Last Taken Unknown] ondansetron 4 mg disintegrating tablet 4 mg PO Q4H PRN NAUSEA/VOMITING 07/22/22 [History Last Taken Unknown] polysaccharide iron complex 150 mg iron capsule (iFerex 150) 150 mg PO DAILY SSUPPLEMENT 07/22/22 [History Last Taken 07/21/22] zinc sulfate 50 mg zinc (220 mg) tablet 50 mg PO DAILY SUPPLEMENT 07/22/22 [History Last Taken 07/21/22] vancomycin 50 mg/mL oral solution 125 mg (2.5 mL) PO Q6H 7 days #70 mL 07/27/22 [Rx Last Taken Unknown] Allergy/AdvReac Type Severity Reaction Status Date / Time adhesive Allergy burn-like Verified 07/31/22 10:02 cortisone [Cortisone] Allergy Rash Verified 07/31/22 10:02 simvastatin AdvReac joint/muscle Verified 07/31/22 10:02 aches Family History Father Congestive heart failure Mother Colon cancer Surgical History H/O right inguinal hernia repair History of cholecystectomy History of cholecystectomy History of gastrectomy (~07/2014) Presence of coronary angioplasty implant and graft (~09/05/02) S/P TAVR (transcatheter aortic valve replacement) (~12/27/19) Social History household members: spouse Smoking Status: Former smoker how long ago did patient quit smoking: Quit ~20 yrs prior, smoked since late 20s until quit, pipe specifically. alcohol intake: never substance use type: does not use ROS Constitutional Constitutional: Reports fatigue, malaise and weakness; Denies anorexia, change in weight, chills or fever(s) Eyes Eyes: Denies change in vision ENT HEENT: Denies dysphagia or headache(s) Cardiovascular Cardiovascular: Denies chest pain, dyspnea on exertion, edema, lightheadedness, orthopnea, palpitations, rapid heart rate or syncope Respiratory/Chest Respiratory/Chest: Denies cough, dyspnea, productive cough, shortness of breath at rest or shortness of breath with exertion Gastrointestinal Gastrointestinal: Reports diarrhea; Denies abdominal pain, constipation, dyspepsia, nausea or vomiting Genitourinary Genitourinary: Denies burning urination or dysuria Musculoskeletal Musculoskeletal: Denies arthralgias Neurologic Neurologic: Denies confusion, dizziness, focal weakness or headache(s) Psychiatric Psychiatric: Denies anxiety Vital Signs Vital Signs Vital Signs: 07/31/22 09:50 07/31/22 10:00 Temperature 97.7 F L Temperature Source Oral Pulse Rate 90 Respiratory Rate 16 Respiratory Effort Normal Non-Labored Respiratory Pattern Normal Blood Pressure 136/98 H Blood Pressure Mean 110 Pulse Ox 95 Oxygen Delivery Method Room Air Weight Weight: 192 lb 3.889 oz Body Mass Index (BMI) 25.3 Physical Exam Const alert, oriented x3 and no apparent distress General Appearance: cooperative HEENT normocephalic, head/scalp atraumatic and hearing grossly normal bilaterally HEENT Narrative: dry oral mucosal membranes Neck no lymphadenopathy, supple and no JVD Resp normal respiratory effort, no retractions, no use of accessory muscles and clear to auscultation bilaterally Cardio regular rate, regular rhythm, S1 normal heart sound, S2 normal heart sound and no murmurs GI normal to inspection, nondistended, normoactive bowel sounds, soft to palpation, non-tender and non-distended Extremity normal to inspection, full ROM and no clubbing, cyanosis or edema Neuro oriented x3, CN's II-XII intact bilaterally, moves all extremities and no focal motor deficits Sensorium / Orientation: awake and alert Motor Exam: strength 5/5 throughout Psych affect normal Results Lab / Micro Data Result Diagrams: 07/31/22 11:18 07/31/22 11:18 Labs: Laboratory Results - last 24 hr 07/31/22 11:18: WBC 9.1, RBC 3.02 L, Hgb 9.7 L, Hct 30.9 L, MCV 102.3 H, MCH 32.1 H, MCHC 31.4 L, RDW Std Deviation 70.9 H, RDW Coeff of Rain 18.9 H, Plt Count 143 L, MPV 10.9, Immature Gran % (Auto) 2.500 H, Neut % (Auto) 75.9 H, Lymph % (Auto) 14.4 L, [place] % (Auto) 6.3, Eos % (Auto) 0.4, Baso % (Auto) 0.5, Absolute Neuts (auto) 6.9, Absolute Lymphs (auto) 1.31, Nucleated RBC % 0 07/31/22 11:18: Sodium 147 H, Potassium 4.0, Chloride 124 H, Carbon Dioxide 17.0 L, Anion Gap 6, BUN 56 H, Creatinine 2.93 H, Estim Creat Clear Calc 21.21, Est GFR (MDRD) Af Amer 26 L, Est GFR (MDRD) Non-Af 22 L, BUN/Creatinine Ratio 19.1, Glucose 84, Calcium 7.5 L, Total Bilirubin 0.40, AST 29, ALT 40, Alkaline Phosphatase 431 H, Total Creatine Kinase 60, Total Protein 5.9 L, Albumin 1.7 L, Globulin 4.2, Albumin/Globulin Ratio 0.4 L Radiology Impression Brain CT 07/31/22 10:28 IMPRESSION: Chronic involutional changes of the brain. No acute hemorrhage Attenuation in the inferior left sacral lobe suggests an infarct has occurred between the previous study and current study. Left maxillary sinusitis Electronically Signed: Johnson Krueger MD at 12:04 EST , Chest X-Ray 12/18/22 10:28 IMPRESSION: Persistent evidence of mild interstitial edema without organized infiltrate or effusion Electronically Signed: Johnson Krueger MD at 11:53 EST , Forearm X-Ray 07/31/22 10:28 IMPRESSION: No demonstrated fracture or suspicious osseous lesion Electronically Signed: Johnson Krueger MD at 11:54 EST , Humerus X-Ray 07/31/22 10:28 IMPRESSION: Demineralization of the osseous structures. No demonstrated fracture Electronically Signed: Johnson Krueger MD at 12:10 EST , Assessment & Plan Assessment/Plan (1) Syncope: (2) Dehydration: (3) History of Clostridium difficile infection: (4) Generalized weakness: (5) Hypernatremia: PLAN: Plan #Debility due to syncope and mechanical [facility] Check orthostatic blood pressure. Hydrate gently with IV fluids. Consult PT OT. Fall precautions. #Recurrent C. difficile Patient was recently discharged from the hospital after his diarrhea improved. However he says since he went home his diarrhea has worsened. He is on a second course of oral vancomycin Consult ID on account of recurrent C. difficile. Being gently hydrated with IV fluids. #Hyponatremia: Sodium is 147. This likely due to dehydration from decreased intake as well as diarrhea. Will hydrate with fluids and trend. #Iron deficiency anemia: Due to history of gastrectomy: On oral iron supplementation. #DELGADO on CKD 3b Creatinine is 2.93 with a baseline of around 2.5. Likely due to decreased intake and diarrhea. Hydrate gently with fluids and trend. #Non-anion gap metabolic acidosis Anion gap is 6 with bicarb of 17. This likely due to diarrhea. Should improve as diarrhea also improved. Will monitor. DVT prophylaxis: Lovenox CODE STATUS: full code, as from most recent admission. Charges/Coding Visit Charges Inpatient E&M: 80551 Init Hosp L3
[2022-07-31 12:24] LABS: Anisocytosis 2+; Differential Comment SCANNED; Macrocytosis 1+; Microcytosis 1+
[2022-07-31] MEDS: 0.9% Normal Saline 1,000 ML 125 ML IV ×2 (14:18→22:27)
[2022-07-31] MEDS: Ascorbic Acid 500 MG Tablet PO (16:58)
[2022-07-31] MEDS: Vancomycin 125 MG/5 ML Susp PO.SYRINGE PO (17:00)
--- NOTE | 2022-07-31 20:48 | NURSING ---
Pt noted to have an irregular apical heart rhythm, pulse 47 per PB machine, radial pulse irregular as well, Dr Young texted, asked for EKG.This nurse returned to room and reassessed pt. HR back in the 90's and regular.
[2022-07-31] MEDS: Tamsulosin HCl 0.4 MG Capsule PO (22:29)
[2022-08-01] VITALS (12 sets, daily range): BP systolic 98–126; BP diastolic 54–92; PULSE 74–99; RESP 16–21; TEMP 36.4–37.1; O2SAT 96–99
[2022-08-01] MEDS: Vancomycin 125 MG/5 ML Susp PO.SYRINGE PO ×5 (00:45→23:52)
[2022-08-01 05:55] LABS: Absolute Lymphocyte Count 1.61 X10^3/uL (0.83-4.51); Absolute Neutrophil Count 6.3 X10^3/uL (2.0-7.7); Basophil# 0.06 X10^3/uL; Basophil% 0.7 % (0-1); Eosinophil# 0.04 X10^3/uL; Eosinophils% 0.4 % (0-5); Hematocrit 27.1 % (40-54); Hemoglobin 8.4 g/dL (13.0-16.5); Lymphocyte # 1.61 X10^3/ul (0.83-4.51); Lymphocyte % 18.1 % (19-41); Mean Corpuscular Hgb 32.4 pg (27.0-32.0); Mean Corpuscular Volume 104.6 fL (80-94); Mean Platelet Vol. 10.9 fl (6.2-12.0); Monocyte# 0.51 X10^3/uL; Monocyte% 5.7 % (0-10); NRBC Flagged by Analyzer 0 % (0-5); Neutrophil # 6.27 X10^3/uL (2.7-7.7); Neutrophil % 70.5 % (47-70); POSITIVE MORPHOLOGY YES; Platelet Count 122 K/mm3 (150-450); RBC Distribution Width CV 19.2 % (11.6-14.6); RBC Distribution Width SD 73.3 fl (35.1-43.9); Red Blood Count 2.59 M/mm3 (4.6-6.2); White Blood Count 8.9 K/mm3 (4.4-11.0)
[2022-08-01 06:23] LABS: Anion Gap 8 (5-15); BUN 59 mg/dL (7-18); BUN/Creat Ratio 21.5 RATIO (10-20); Calcium,Total 7.3 mg/dL (8.5-10.1); Chloride 129 mmol/L (98-107); Creatinine, Serum 2.74 mg/dL (0.70-1.30); EST Glomerular Filtration Rate 24 mL/min (>60); Est Glom Filt Rate - Afr Amer 29 mL/min (>60); Estimated Creatinine Clearance 22.68 ml/min; Glucose 85 mg/dL (74-106); Potassium 3.9 mmol/L (3.5-5.1); Sodium Level 149 mmol/L (136-145)
[2022-08-01] MEDS: Dext 5%-0.45% NS 1,000 ML 75 ML IV (07:17)
[2022-08-01 07:19] LABS: Differential Indicated SCAN CRITERIA MET
--- NOTE | 2022-08-01 08:15 | WOUNDNOTE ---
wound photo: right upper arm
--- NOTE | 2022-08-01 08:15 | WOUNDNOTE ---
wound photo: left upper arm
--- NOTE | 2022-08-01 08:15 | WOUNDNOTE ---
wound photo: right buttock
[2022-08-01 08:38] LABS: Anisocytosis 1+
[2022-08-01] MEDS: Aspirin E.C. 81 MG Tablet PO (09:02)
[2022-08-01] MEDS: Cyanocobalamin 500 MCG Tablet PO (09:02)
[2022-08-01] MEDS: Cholecalciferol (VIT D3) 25 MCG TABLET (1,000 UNITS) 50 MCG PO (09:03)
[2022-08-01] MEDS: Iron Polysaccharide Complex 150 MG CAPSULE PO (09:03)
[2022-08-01] MEDS: Ascorbic Acid 500 MG Tablet PO ×2 (09:03→17:15)
[2022-08-01] MEDS: Pantoprazole Sodium 40 MG Tablet PO (09:03)
[2022-08-01] MEDS: Menthol/Lanolin/Calamine/Znox 113 GM Tube 1 APPLIC TOPICAL ×2 (09:11→20:23)
[2022-08-01] MEDS: Enoxaparin 30 MG/0.3 ML Syringe SC (09:11)
[2022-08-01] MEDS: Ipratropium/Albuterol Sulfate 3 ML AMPUL.NEB INHALATION ×3 (10:50→19:23)
--- NOTE | 2022-08-01 11:01 | PCM.PN.HOSP ---
Subjective Subjective Follow-up on acute debility: Patient was seen and examined. He complains of feeling slightly short of breath. He denied any chest pain or dizziness or palpitation. IV fluids have been discontinued. No diarrhea seen here. Objective Data Objective Data Vital Signs: Vital Signs Temp Pulse Resp BP Pulse Ox O2 Del Method 97.6 F L 74 18 109/76 96 Room Air 08/01/22 08:00 08/01/22 08:00 08/01/22 08:00 08/01/22 08:00 08/01/22 08:00 08/01/22 08:00 Oxygen Delivery Method Room Air Weight: 83.461 kg Body Mass Index (BMI) 24.3 Intake & Output: Intake and Output for Last 24 Hours 07/30/22 07/31/22 08/01/22 23:59 23:59 23:59 Intake Total 2200 / 2200 1941.25 / 1941.25 Balance 2200 / 2200 1941.25 / 1941.25 Lab / Micro Data Result Diagrams: 08/01/22 05:24 08/01/22 05:24 Labs: Laboratory Results - last 24 hr 07/31/22 11:18: WBC 9.1, RBC 3.02 L, Hgb 9.7 L, Hct 30.9 L, MCV 102.3 H, MCH 32.1 H, MCHC 31.4 L, RDW Std Deviation 70.9 H, RDW Coeff of Rain 18.9 H, Plt Count 143 L, MPV 10.9, Immature Gran % (Auto) 2.500 H, Neut % (Auto) 75.9 H, Lymph % (Auto) 14.4 L, [place] % (Auto) 6.3, Eos % (Auto) 0.4, Baso % (Auto) 0.5, Absolute Neuts (auto) 6.9, Absolute Lymphs (auto) 1.31, Nucleated RBC % 0, Differential Comment SCANNED, Anisocytosis 2+, Microcytosis 1+, Macrocytosis 1+ 07/31/22 11:18: Sodium 147 H, Potassium 4.0, Chloride 124 H, Carbon Dioxide 17.0 L, Anion Gap 6, BUN 56 H, Creatinine 2.93 H, Estim Creat Clear Calc 21.21, Est GFR (MDRD) Af Amer 26 L, Est GFR (MDRD) Non-Af 22 L, BUN/Creatinine Ratio 19.1, Glucose 84, Calcium 7.5 L, Total Bilirubin 0.40, AST 29, ALT 40, Alkaline Phosphatase 431 H, Total Creatine Kinase 60, Total Protein 5.9 L, Albumin 1.7 L, Globulin 4.2, Albumin/Globulin Ratio 0.4 L 08/01/22 05:24: WBC 8.9, RBC 2.59 L, Hgb 8.4 L, Hct 27.1 L, MCV 104.6 H, MCH 32.4 H, MCHC 31.0 L, RDW Std Deviation 73.3 H, RDW Coeff of Rain 19.2 H, Plt Count 122 L, MPV 10.9, Immature Gran % (Auto) 4.600 H, Neut % (Auto) 70.5 H, Lymph % (Auto) 18.1 L, [place] % (Auto) 5.7, Eos % (Auto) 0.4, Baso % (Auto) 0.7, Absolute Neuts (auto) 6.3, Absolute Lymphs (auto) 1.61, Nucleated RBC % 0, Anisocytosis 1+ 08/01/22 05:24: Sodium 149 H, Potassium 3.9, Chloride 129 H*, Carbon Dioxide 12.0 L, Anion Gap 8, BUN 59 H, Creatinine 2.74 H, Estim Creat Clear Calc 22.68, Est GFR (MDRD) Af Amer 29 L, Est GFR (MDRD) Non-Af 24 L, BUN/Creatinine Ratio 21.5 H, Glucose 85, Calcium 7.3 L Radiography Diagnostic Testing: Radiology Impression Brain CT 07/31/22 10:28 IMPRESSION: Chronic involutional changes of the brain. No acute hemorrhage Attenuation in the inferior left sacral lobe suggests an infarct has occurred between the previous study and current study. Left maxillary sinusitis Electronically Signed: Johnson Krueger MD at 12:04 EST , Chest X-Ray 07/31/22 10:28 IMPRESSION: Persistent evidence of mild interstitial edema without organized infiltrate or effusion Electronically Signed: Johnson Krueger MD at 11:53 EST , Forearm X-Ray 07/31/22 10:28 IMPRESSION: No demonstrated fracture or suspicious osseous lesion Electronically Signed: Johnson Krueger MD at 11:54 EST Reading Location ID and State: [facility] / [place] , Service support , Humerus X-Ray 07/31/22 10:28 IMPRESSION: Demineralization of the osseous structures. No demonstrated fracture Electronically Signed: Johnson Krueger MD at 12:10 EST Reading Location ID and State: [facility] / [place] , Service support , Physical Exam Narrative Physical exam: General: Alert, Oriented x3, Cooperative, appears very frail, slightly short of breath HEENT: Atraumatic Oral: Moist Mucosa Neck: Supple Lungs: Clear to auscultation Cardiovascular: HS I+II, regular, no murmurs Abdomen: Bowel Sounds Present, Soft, Non Tender Extremities: Bilateral pedal edema +1 Skin: No rashes, No breakdown Neurological: Grossly intact Psych/Mental Status: Appropriate Assessment & Plan Assessment/Plan (1) Syncope: (2) Dehydration: (3) History of Clostridium difficile infection: (4) Generalized weakness: (5) Hypernatremia: PLAN: Plan 1. Debility, recurrent falls, multifactorial, Orthostatic vital signs negative PT/OT to evaluate and treat Social work for discharge planning 2. Recurrent C. difficile, improved Continue on oral vancomycin, ID following 3. Hypernatremia, improved, sodium is now 149, continue to monitor 4. Nongap metabolic acidosis likely secondary to diarrhea, bicarb is 12 Will start on oral bicarb and reevaluate in a.m. 5. DELGADO on CKD stage IV, creatinine is close to his baseline We will trend 6. Iron deficiency anemia, history of gastrectomy Continue on oral iron supplementation. 7. DVT prophylaxis- Lovenox SC Charges/Coding Visit Charges Inpatient E&M: 81502 Subs Hosp L2
--- NOTE | 2022-08-01 14:03 | PCM.CONS.GEN ---
Assessment & Plan Assessment/Plan (1) Recurrent Clostridioides difficile diarrhea: PLAN: 2nd episode, overall much improved. Plan on long po vanc taper at this point. Will follow, thank you HPI Consult Data Date of Consult: 08/01/22 HPI Narrative Reason for Consultation: cdiff HPI Narrative: SEEMA CHACON, is a 86 M with CKD, recent admit with cdiff and covid. Previously treated for uti and cdiff in hospital in 06/2022. Readmitted now after fall at home, ongoing diarrhea. Continued on oral vanc. Diarrhea down to once a day, previously had been having numerous episodes. No fever, no abd pain. Feeling better today. Full ROS performed and neg except as noted above. [facility] Medical History Abdominal aortic aneurysm (AAA) Abdominal aortic aneurysm without rupture Acute kidney injury Anasarca Atherosclerotic heart disease of [place] coronary artery without angina pectoris BPH (benign prostatic hyperplasia) C. difficile colitis CAD (coronary artery disease) Chronic kidney disease COVID Esophageal cancer Essential hypertension Gastric adenocarcinoma Generalized weakness Gout History of left heart catheterization (LHC) (~06/26/19) HTN (hypertension) Hyperlipidemia Hyperphosphatemia Kidney stones Macrocytic anemia Metabolic acidosis Murmur, cardiac Non-rheumatic aortic stenosis Old myocardial infarction Presence of stent in coronary artery (~09/05/02) Severe protein-calorie malnutrition Sleep apnea Home Medications omeprazole 40 mg capsule,delayed release 40 mg PO DAILY ACID REFLUX 06/30/16 [History Last Taken 07/21/22] tamsulosin 0.4 mg capsule 0.4 mg PO QHS PROSTATE 05/26/17 [History Last Taken 07/21/22] aspirin 81 mg tablet,delayed release 81 mg PO DAILY heart health 06/26/22 [History Last Taken 07/21/22] acetaminophen 325 mg tablet 325 - 650 mg PO Q6H PRN Pain 07/22/22 [History Last Taken Unknown] ascorbic acid (vitamin C) 500 mg tablet (Vitamin C) 500 mg PO BID SUPPLEMENT 07/22/22 [History Last Taken 07/21/22] cholecalciferol (vitamin D3) 50 mcg (2,000 unit) tablet (Vitamin D3) 50 mcg PO DAILY SUPPLEMENT 07/22/22 [History Last Taken 07/21/22] cyanocobalamin (vitamin B-12) 500 mcg tablet 500 mcg PO DAILY SUPPLEMENT 07/22/22 [History Last Taken 07/21/22] dextromethorphan-benzocaine 5 mg-7.5 mg lozenges 1 ralph PO Q2H PRN SORE THROAT/COUGH 07/22/22 [History Last Taken Unknown] ondansetron 4 mg disintegrating tablet 4 mg PO Q4H PRN NAUSEA/VOMITING 07/22/22 [History Last Taken Unknown] polysaccharide iron complex 150 mg iron capsule (iFerex 150) 150 mg PO DAILY SSUPPLEMENT 07/22/22 [History Last Taken 07/21/22] zinc sulfate 50 mg zinc (220 mg) tablet 50 mg PO DAILY SUPPLEMENT 07/22/22 [History Last Taken 07/21/22] vancomycin 50 mg/mL oral solution 125 mg (2.5 mL) PO Q6H 7 days #70 mL 07/27/22 [Rx Last Taken Unknown] Allergy/AdvReac Type Severity Reaction Status Date / Time adhesive Allergy burn-like Verified 07/31/22 10:02 cortisone [Cortisone] Allergy Rash Verified 07/31/22 10:02 simvastatin AdvReac joint/muscle Verified 07/31/22 10:02 aches Family History Father Congestive heart failure Mother Colon cancer Surgical History H/O right inguinal hernia repair History of cholecystectomy History of cholecystectomy History of gastrectomy (~07/2014) Presence of coronary angioplasty implant and graft (~09/05/02) S/P TAVR (transcatheter aortic valve replacement) (~12/27/19) Social History household members: spouse Smoking Status: Former smoker how long ago did patient quit smoking: Quit ~20 yrs prior, smoked since late 20s until quit, pipe specifically. alcohol intake: never substance use type: does not use Physical Exam Const alert and no apparent distress General Appearance: cooperative HEENT normocephalic and head/scalp atraumatic Eyes PERRL and EOMs intact bilaterally Neck supple and No nodes Resp normal air movement and clear to auscultation bilaterally Cardio regular rate and regular rhythm GI soft to palpation, non-tender and non-distended Extremity General Extremity: Negative for edema Skin no rashes or lesions noted Neuro CN's II-XII intact bilaterally Lab / Micro Data Attestation: I reviewed the patient's lab results. Result Diagrams: 08/01/22 05:24 08/01/22 05:24 Labs: Laboratory Results - last 24 hr 08/01/22 05:24: WBC 8.9, RBC 2.59 L, Hgb 8.4 L, Hct 27.1 L, MCV 104.6 H, MCH 32.4 H, MCHC 31.0 L, RDW Std Deviation 73.3 H, RDW Coeff of Rain 19.2 H, Plt Count 122 L, MPV 10.9, Immature Gran % (Auto) 4.600 H, Neut % (Auto) 70.5 H, Lymph % (Auto) 18.1 L, [place] % (Auto) 5.7, Eos % (Auto) 0.4, Baso % (Auto) 0.7, Absolute Neuts (auto) 6.3, Absolute Lymphs (auto) 1.61, Nucleated RBC % 0, Anisocytosis 1+ 08/01/22 05:24: Sodium 149 H, Potassium 3.9, Chloride 129 H*, Carbon Dioxide 12.0 L, Anion Gap 8, BUN 59 H, Creatinine 2.74 H, Estim Creat Clear Calc 22.68, Est GFR (MDRD) Af Amer 29 L, Est GFR (MDRD) Non-Af 24 L, BUN/Creatinine Ratio 21.5 H, Glucose 85, Calcium 7.3 L
--- NOTE | 2022-08-01 15:57 | CASEMGMT ---
Social Work SW attempted to meet with pt to discuss discharge planning. Pt sleeping. Pt feels pt will need SNF. Gisselle from [facility] met with pt to assess AL plan. Gisselle reports pt will likely need Skilled rehab before able to come to AL at [facility]. Pt refused therapy. NUHA will check in with pt tomorrow and discuss SNF after therapy evaluates.
[2022-08-01] MEDS: Juven (unflavored) Packet 1 PACKET PO (17:15)
[2022-08-01] MEDS: Sodium Bicarbonate 650 MG Tablet PO ×2 (17:15→20:28)
--- NOTE | 2022-08-01 19:23 | NURSING ---
Under emergency charting.
[2022-08-01] MEDS: Tamsulosin HCl 0.4 MG Capsule PO (20:24)
[2022-08-01 23:12] LABS: Mucous, Urine 0 SEEN /hpf (<or=2+)
[2022-08-01 23:17] LABS: Color, Urine Yellow (Yellow); Glucose, Dipstick Normal (Normal); Ketone-Dipstick 5 mg/dl (Negative); Leukocyte Esterase-Dipstick 25 /ul (Negative); Nitrite-Dipstick Negative (Negative); Occult Blood-Urine 250 /ul (Negative); Protein-Dipstick 500 mg/dl (Negative); Urine Bilirubin Dipstick Negative (Negative); Urine Clarity Clear (Clear); Urine Urobilinogen Normal (Normal)
[2022-08-01 23:26] LABS: Red Blood Cells-Urine 50-100 SEEN /hpf (0-5)
[2022-08-01 23:27] LABS: Bacteria RARE /hpf (None Seen); Squamous Epithelial Cells - UA 0-5 SEEN /hpf (0-5); White Blood Cells 5-10 SEEN /hpf (0-5)
[2022-08-02] VITALS (11 sets, daily range): BP systolic 107–144; BP diastolic 77–92; PULSE 79–100; RESP 16–20; TEMP 37–37.2; O2SAT 95–98
[2022-08-02] MEDS: Vancomycin 125 MG/5 ML Susp PO.SYRINGE PO ×4 (05:49→23:18)
[2022-08-02 06:29] LABS: Hematocrit 26.2 % (40-54); Hemoglobin 8.1 g/dL (13.0-16.5); Mean Corp Hgb Conc 30.9 g/dL (32-36); Mean Corpuscular Hgb 31.9 pg (27.0-32.0); Mean Corpuscular Volume 103.1 fL (80-94); POSITIVE COUNT YES; POSITIVE MORPHOLOGY YES; Platelet Count 123 K/mm3 (150-450); RBC Distribution Width CV 19.3 % (11.6-14.6); Red Blood Count 2.54 M/mm3 (4.6-6.2); White Blood Count 8.1 K/mm3 (4.4-11.0)
[2022-08-02 06:41] LABS: Differential Indicated MANUAL DIFF
[2022-08-02 06:59] LABS: ALB/GLOB Ratio 0.4 RATIO (0.9-2.4); AST(SGOT) 20 U/L (15-37); Alanine Aminotransfer ALT/SGPT 31 U/L (16-61); Albumin, Serum 1.3 g/dL (3.2-5.0); Alkaline Phosphatase 329 U/L (45-117); Anion Gap 9 (5-15); BUN 60 mg/dL (7-18); BUN/Creat Ratio 21.7 RATIO (10-20); Calcium,Total 7.2 mg/dL (8.5-10.1); Chloride 125 mmol/L (98-107); Creatinine, Serum 2.77 mg/dL (0.70-1.30); EST Glomerular Filtration Rate 23 mL/min (>60); Est Glom Filt Rate - Afr Amer 28 mL/min (>60); Estimated Creatinine Clearance 22.43 ml/min; Globulin 3.5 g/dL (2.2-4.2); Glucose 81 mg/dL (74-106); Potassium 3.9 mmol/L (3.5-5.1); Protein, Total 4.8 g/dL (6.4-8.2); Sodium Level 148 mmol/L (136-145)
[2022-08-02 07:01] LABS: Eosinophil 1 % (0-5); Lymphocyte 11 % (19-41); Metamyelocyte 4 % (0-1); Monocyte 1 % (0-10); Neutrophil-Segmented 83 % (47-70); Total Cells Counted 100 (MANUAL DIFF)
[2022-08-02 07:05] LABS: Absolute Lymphocyte Count 0.89 X10^3/uL (0.83-4.51); Lymphocyte # 0.89 X10^3/ul (0.83-4.51); Neutrophil # 7.03 X10^3/uL (2.7-7.7); Platelet Estimate SLT DEC (ADEQ)
[2022-08-02 07:08] LABS: Ovalocyte RARE
[2022-08-02 07:09] LABS: Anisocytosis 2+; Macrocytosis 1+
[2022-08-02] MEDS: Ipratropium/Albuterol Sulfate 3 ML AMPUL.NEB INHALATION ×4 (07:49→20:40)
[2022-08-02] MEDS: Juven (unflavored) Packet 1 PACKET PO ×2 (08:51→17:25)
[2022-08-02] MEDS: Cyanocobalamin 500 MCG Tablet PO (08:51)
[2022-08-02] MEDS: Ascorbic Acid 500 MG Tablet PO ×2 (08:51→17:25)
[2022-08-02] MEDS: Aspirin E.C. 81 MG Tablet PO (08:51)
[2022-08-02] MEDS: Pantoprazole Sodium 40 MG Tablet PO (08:52)
[2022-08-02] MEDS: Iron Polysaccharide Complex 150 MG CAPSULE PO (08:52)
[2022-08-02] MEDS: Menthol/Lanolin/Calamine/Znox 113 GM Tube 1 APPLIC TOPICAL ×2 (08:52→20:07)
[2022-08-02] MEDS: Sodium Bicarbonate 650 MG Tablet PO ×2 (08:53→14:15)
[2022-08-02] MEDS: Cholecalciferol (VIT D3) 25 MCG TABLET (1,000 UNITS) 50 MCG PO (09:00)
--- NOTE | 2022-08-02 09:46 | CASEMGMT ---
Social Work SW in to meet with pt following update from that pt will need placement at nursing facility. SW? introduced self and role at the hospital. Pt appeared somewhat confused and groggy. A list of SNF providers including quality and resource use data and consistent with the patient?s preferred geographic region, medical needs, and insurance network were provided from the [employer] Guide. Pt unable to review list, asked SW to call daughter Shelli to make plans. SW asked pt about recent stay at [facility]. Pt stated I don't know anything about it. Pt just left [facility] on 07/27. SW called pt daughter to discuss plan. Daughter Shelli stated family not wanting pt to return to senior care. Family prefers AL, however was not impressed with [facility] yesterday when [facility] met with pt and pt . Shelli stated family is working to create meetings with other AL facilities and will be in this afternoon to discuss with pt. SW encouraged edel Marques to share updates on plan for pt to go to AL as soon as possible as discharge planning is important and needs to be timely. Shelli voiced understanding. ? PLAN: TBD? SEBAS Infante?
[2022-08-02] MEDS: Enoxaparin 30 MG/0.3 ML Syringe SC (10:12)
--- NOTE | 2022-08-02 10:12 | CASEMGMT ---
[facility]J DRAKE Readmission Note Previous Admission:?07/22/2022-07/27/2022?? Diagnosis:? acute cdiff, also tested positive for COVID DC Disposition: Home with [facility] Current Admission? Current Diagnosis: debility, mechanical fall Pt presents to ER with a fall and down time of approx 5 hours prior to being found. Pt lives with who has memory impairments. Pt recently prior to last hospital stay was at [facility] and did not want to return. Pt was set up with [facility] who had visited pt one time since hospital dc. Pt had an appt with [facility] planned prior to hospitalization for yesterday. Family were not satisfied with their offerings. Currently family (specifically dtr Randi who pt defers decisions to) are wanting pt to go to an [facility] vs SNF [facility]. SW working with them on this. Pt is medically ready for dc. Plan: AL vs SNF
--- NOTE | 2022-08-02 10:44 | PCM.PN.ID ---
Physical Exam Narrative Feeling better, diarrhea improving. Const alert and no apparent distress Resp normal air movement and clear to auscultation bilaterally Cardio regular rate and regular rhythm GI soft to palpation, non-tender and non-distended Skin no rashes or lesions noted ID ID: Route of nutrition/ use of supplements: [] Nutritional Intake: [] IV Site: [] Bauman Catheter: [] Assessment & Plan Assessment/Plan (1) Recurrent Clostridioides difficile diarrhea: PLAN: 2nd episode, overall much improved. Will write for 4 week-long po vanc taper Will follow as needed, ID followup prn.
--- NOTE | 2022-08-02 11:26 | PN.HOSP_ITS ---
Subjective Subjective Follow-up on acute debility: Patient was seen and examined. He feels slightly improved with scheduled breathing treatment. He denied any chest pain or dizziness or palpitation.? His diarrhea is slightly improved. Objective Data Objective Data Vital Signs: Vital Signs Temp Pulse Resp BP Pulse Ox O2 Del Method 98.6 F 98 18 118/77 97 Room Air 08/02/22 08:46 08/02/22 08:46 08/02/22 08:46 08/02/22 08:46 08/02/22 08:46 08/02/22 08:46 Oxygen Delivery Method Room Air Weight: 83.5 kg Body Mass Index (BMI) 24.3 Intake & Output: Intake and Output for Last 24 Hours 07/31/22 08/01/22 08/02/22 23:59 23:59 23:59 Intake Total 2200 / 2200 2691.25 / 2691.25 Balance 2200 / 2200 2691.25 / 2691.25 Lab / Micro Data Result Diagrams: 08/02/22 05:40 08/02/22 05:40 Labs: Laboratory Results - last 24 hr 07/31/22 23:05: Urine Color Yellow, Urine Clarity Clear, Urine pH 5.0, Ur Specific Madelia 1.020, Urine Protein 500 H, Urine Glucose (UA) Normal, Urine Ketones 5 H, Urine Occult Blood 250 H, Urine Nitrite Negative, Urine Bilirubin Negative, Urine Urobilinogen Normal, Ur Leukocyte Esterase 25 H, Urine RBC 50- 100 SEEN, Urine WBC 5-10 SEEN, Ur Squamous Epith Cells 0-5 SEEN, Urine Bacteria RARE, Urine Mucus 0 SEEN 08/02/22 05:40: WBC 8.1, RBC 2.54 L, Hgb 8.1 L, Hct 26.2 L, MCV 103.1 H, MCH 31.9, MCHC 30.9 L, RDW Std Deviation 73.0 H, RDW Coeff of Rain 19.3 H, Plt Count 123 L, MPV 11.0, Neut % (Auto) Not Reportable, Absolute Neuts (auto) 7.0, Absolute Lymphs (auto) 0.89, Total Counted 100, Neutrophils % (Manual) 83 H, Lymphocytes % (Manual) 11 L, Monocytes % (Manual) 1, Eosinophils % (Manual) 1, Metamyelocytes % 4 H, Diff Path Review May foll, Platelet Estimate SLT DEC, Anisocytosis 2+, Macrocytosis 1+, Ovalocytes RARE 08/02/22 05:40: Sodium 148 H, Potassium 3.9, Chloride 125 H, Carbon Dioxide 14.0 L, Anion Gap 9, BUN 60 H, Creatinine 2.77 H, Estim Creat Clear Calc 22.43, Est GFR (MDRD) Af Amer 28 L, Est GFR (MDRD) Non-Af 23 L, BUN/Creatinine Ratio 21.7 H , Glucose 81, Calcium 7.2 L, Total Bilirubin 0.30, AST 20, ALT 31, Alkaline Phosphatase 329 H, Total Protein 4.8 L, Albumin 1.3 L, Globulin 3.5, Albumin/Globulin Ratio 0.4 L Physical Exam Narrative Physical exam: General: Alert, Oriented x3, Cooperative, appears very frail, slightly short of breath HEENT: Atraumatic Oral: Moist Mucosa Neck: Supple Lungs: Diminished to auscultation Cardiovascular: HS I+II, regular, no murmurs Abdomen: Bowel Sounds Present, Soft, Non Tender Extremities: Bilateral pedal edema +1 Skin: No rashes, No breakdown Neurological: Grossly intact Psych/Mental Status: Appropriate Assessment & Plan Assessment/Plan (1) Syncope: (2) Dehydration: (3) History of Clostridium difficile infection: (4) Generalized weakness: (5) Hypernatremia: PLAN: Plan 1. Debility, recurrent falls, multifactorial, Orthostatic vital signs negative PT/OT to evaluate and treat Social work for discharge planning 2. Recurrent C. difficile, improved Continue on oral vancomycin, ID following 3. Hypernatremia, improved, sodium is now 148, Encourage use of free water, continue to monitor 4. Non-gap metabolic acidosis likely secondary to diarrhea, bicarb is 12 Continue on oral bicarb and reevaluate in a.m. 5. DELGADO on CKD stage IV, creatinine is close to his baseline Creatinine is currently 2.77, continue to trend 6. Iron deficiency anemia, history of gastrectomy Hemoglobin remained at his baseline, currently 8.1 Continue on oral iron supplementation. 7. DVT prophylaxis- Lovenox SC Disposition: Awaiting discharge to senior care facility Charges/Coding Visit Charges Inpatient E&M: 39367 Subs Hosp L3
--- NOTE | 2022-08-02 13:16 | CASEMGMT ---
Addendum entered by Gisselle German 08/02/22 15:08: NUHA back in to discuss pt choice. Informed yunlimadison that TCU has no open beds and pt not eligible for Rehab unit. Pt and daughter stated [facility] first choice. SW informed [facility] limited on beds and requested a back up choice. Pt became upset, stated let me sleep on it then and I'll tell you tomorrow. SW explained pt medically ready and plan needs to be started this day so alterative choice is needed. SW reassured pt that [facility] would be contacted first to accommodate pt choice, however the chance of an open bed is limited. Pt and daughter shared second choice would be [facility]. SW [facility] to [facility] [facility] at this time. PLAN: [facility] Original Note: Social Work? SW in to meet with pt and pt daughter Randi. SW introduced self and role at the hospital. Pt/family agreeable to discussing discharge planning. A list of SNF providers including quality and resource use data and consistent with the patient?s preferred geographic region, medical needs, and insurance network were provided from the [facility] Guide. Pt/family reviewed list, stated [facility] TCU or Rehab Unit would be preference. Nuha informed family that at this time no beds are open. Family requested SW still check with TCU. SW agreeable. Contacted Rosio at TCU to check on bed availability. Rosio informed all TCU beds were full and pt would likely not meet diagnosis criteria for [facility] to pay for Rehab. Pt/family requested time to select alternative choices. NUHA informed family could have 45 minutes to make choice as referral would need to be started tomas for insurance auth to get started. SW to check back with family for SNF choice. ? PLAN: SNF- TBD [facility]?
[2022-08-02 13:52] LABS: Pathologist Review Reviewed
[2022-08-02] MEDS: Tamsulosin HCl 0.4 MG Capsule PO (20:07)
[2022-08-03] VITALS (7 sets, daily range): BP systolic 117–136; BP diastolic 72–84; PULSE 55–88; RESP 14–19; TEMP 36.3–36.7; O2SAT 94–99
[2022-08-03] MEDS: Vancomycin 125 MG/5 ML Susp PO.SYRINGE PO ×3 (05:02→17:01)
[2022-08-03 05:50] LABS: Hematocrit 27.3 % (40-54); Hemoglobin 8.6 g/dL (13.0-16.5); Mean Corp Hgb Conc 31.5 g/dL (32-36); Mean Corpuscular Hgb 32.7 pg (27.0-32.0); Mean Corpuscular Volume 103.8 fL (80-94); Mean Platelet Vol. 10.7 fl (6.2-12.0); POSITIVE COUNT YES; POSITIVE MORPHOLOGY YES; Platelet Count 121 K/mm3 (150-450); RBC Distribution Width CV 19.2 % (11.6-14.6); RBC Distribution Width SD 72.9 fl (35.1-43.9); Red Blood Count 2.63 M/mm3 (4.6-6.2); White Blood Count 8.1 K/mm3 (4.4-11.0)
[2022-08-03 06:06] LABS: Differential Indicated MANUAL DIFF
[2022-08-03 06:23] LABS: Basophil 1 % (0-1); Eosinophil 1 % (0-5); Lymphocyte 10 % (19-41); Metamyelocyte 4 % (0-1); Monocyte 4 % (0-10); Myelocyte 1 % (0-0); Neutrophil-Band 2 % (0-5); Neutrophil-Segmented 77 % (47-70); Total Cells Counted 100 (MANUAL DIFF)
[2022-08-03 06:24] LABS: ALB/GLOB Ratio 0.4 RATIO (0.9-2.4); AST(SGOT) 22 U/L (15-37); Alanine Aminotransfer ALT/SGPT 30 U/L (16-61); Albumin, Serum 1.3 g/dL (3.2-5.0); Alkaline Phosphatase 325 U/L (45-117); Anion Gap 7 (5-15); BUN 73 mg/dL (7-18); BUN/Creat Ratio 25.2 RATIO (10-20); Calcium,Total 7.1 mg/dL (8.5-10.1); Chloride 126 mmol/L (98-107); EST Glomerular Filtration Rate 22 mL/min (>60); Est Glom Filt Rate - Afr Amer 27 mL/min (>60); Estimated Creatinine Clearance 21.43 ml/min; Globulin 3.7 g/dL (2.2-4.2); Glucose 86 mg/dL (74-106); Potassium 4.3 mmol/L (3.5-5.1); Sodium Level 148 mmol/L (136-145)
[2022-08-03 06:25] LABS: Absolute Lymphocyte Count 0.81 X10^3/uL (0.83-4.51); Absolute Neutrophil Count 6.8 X10^3/uL (2.0-7.7); Lymphocyte # 0.81 X10^3/ul (0.83-4.51)
[2022-08-03 06:26] LABS: Platelet Estimate SLT DEC (ADEQ)
[2022-08-03 06:28] LABS: Anisocytosis 2+; Macrocytosis 1+; Microcytosis 1+; Polychromasia RARE
[2022-08-03] MEDS: Aspirin E.C. 81 MG Tablet PO (08:55)
[2022-08-03] MEDS: Juven (unflavored) Packet 1 PACKET PO (08:55)
[2022-08-03] MEDS: Iron Polysaccharide Complex 150 MG CAPSULE PO (08:56)
[2022-08-03] MEDS: Cholecalciferol (VIT D3) 25 MCG TABLET (1,000 UNITS) 50 MCG PO (08:56)
[2022-08-03] MEDS: Cyanocobalamin 500 MCG Tablet PO (08:56)
[2022-08-03] MEDS: Menthol/Lanolin/Calamine/Znox 113 GM Tube 1 APPLIC TOPICAL ×2 (08:56→20:30)
[2022-08-03] MEDS: Pantoprazole Sodium 40 MG Tablet PO (08:57)
[2022-08-03] MEDS: Ascorbic Acid 500 MG Tablet PO ×2 (08:57→17:00)
[2022-08-03] MEDS: Enoxaparin 30 MG/0.3 ML Syringe SC (08:57)
[2022-08-03] MEDS: Ipratropium/Albuterol Sulfate 3 ML AMPUL.NEB INHALATION ×3 (10:30→19:57)
--- NOTE | 2022-08-03 11:04 | PCM.PN.HOSP ---
Subjective Subjective Follow-up on acute debility: Patient was seen and examined. Patient complains of cough productive of yellowish sputum. Chest x-ray shows persistent atelectasis, improved left infiltrate. His diarrhea is fairly improved. Awaiting on discharge planning. Objective Data Objective Data Vital Signs: Vital Signs Temp Pulse Resp BP Pulse Ox O2 Del Method 97.4 F L 86 18 130/78 H 94 Room Air 08/03/22 08:00 08/03/22 10:48 08/03/22 10:48 08/03/22 08:00 08/03/22 08:00 08/03/22 08:00 Oxygen Delivery Method Room Air Weight: 83.5 kg Body Mass Index (BMI) 24.3 Intake & Output: Intake and Output for Last 24 Hours 08/01/22 08/02/22 08/03/22 23:59 23:59 23:59 Intake Total 2691.25 / 2691.25 Balance 2691.25 / 2691.25 Lab / Micro Data Result Diagrams: 08/03/22 05:00 08/03/22 05:00 Labs: Laboratory Results - last 24 hr 08/02/22 05:40: Diff Path Review Reviewed 08/03/22 05:00: WBC 8.1, RBC 2.63 L, Hgb 8.6 L, Hct 27.3 L, MCV 103.8 H, MCH 32.7 H, MCHC 31.5 L, RDW Std Deviation 72.9 H, RDW Coeff of Rain 19.2 H, Plt Count 121 L, MPV 10.7, Neut % (Auto) Not Reportable, Absolute Neuts (auto) 6.8, Absolute Lymphs (auto) 0.81 L, Total Counted 100, Neutrophils % (Manual) 77 H, Band Neutrophils % 2, Lymphocytes % (Manual) 10 L, Monocytes % (Manual) 4, Eosinophils % (Manual) 1, Basophils % (Manual) 1, Metamyelocytes % 4 H, Myelocytes % 1 H, Diff Path Review May foll, Platelet Estimate SLT DEC, Polychromasia RARE, Anisocytosis 2+, Microcytosis 1+, Macrocytosis 1+ 08/03/22 05:00: Sodium 148 H, Potassium 4.3, Chloride 126 H, Carbon Dioxide 15.0 L, Anion Gap 7, BUN 73 H, Creatinine 2.90 H, Estim Creat Clear Calc 21.43, Est GFR (MDRD) Af Amer 27 L, Est GFR (MDRD) Non-Af 22 L, BUN/Creatinine Ratio 25.2 H, Glucose 86, Calcium 7.1 L, Total Bilirubin 0.30, AST 22, ALT 30, Alkaline Phosphatase 325 H, Total Protein 5.0 L, Albumin 1.3 L, Globulin 3.7, Albumin/Globulin Ratio 0.4 L Physical Exam Narrative Physical exam: General: Alert, Oriented x3, Cooperative, appears very frail, slightly short of breath HEENT: Atraumatic Oral: Moist Mucosa Neck: Supple Lungs: Diminished to auscultation Cardiovascular: HS I+II, regular, no murmurs Abdomen: Bowel Sounds Present, Soft, Non Tender Extremities: Bilateral pedal edema +1 Skin: No rashes, No breakdown Neurological: Grossly intact Psych/Mental Status: Appropriate Assessment & Plan Assessment/Plan (1) Syncope: (2) Dehydration: (3) History of Clostridium difficile infection: (4) Generalized weakness: (5) Hypernatremia: PLAN: Plan 1. Debility, recurrent falls, multifactorial, Orthostatic vital signs negative PT/OT to evaluate and treat Social work for discharge planning 2. Recurrent C. difficile, improved Continue on oral vancomycin, ID following 3. Hypernatremia,persists, sodium is 148, Encourage use of free water, continue to monitor 4. Non-gap metabolic acidosis likely secondary to diarrhea, bicarb is 15 Continue on oral bicarb and reevaluate in a.m. 5. DELGADO on CKD stage IV, creatinine is close to his baseline Creatinine is currently 2.90, continue to trend 6. Iron deficiency anemia, history of gastrectomy Hemoglobin remained at his baseline, currently 8.6 Continue on oral iron supplementation. 7. DVT prophylaxis- Lovenox SC Disposition: [facility] Charges/Coding Visit Charges Inpatient E&M: 00528 Subs Hosp L2
--- NOTE | 2022-08-03 11:21 | RAD_ITS ---
STUDY: X-RAY CHEST REASON FOR EXAM: Male, 86 years old. SOB TECHNIQUE: Single AP portable view of the chest. COMPARISON: Comparison is made with prior study dated 07/31/2022. FINDINGS: Persistent left lower lobe infiltrate. There has been improved aeration of the left lung base. There is no demonstrated pleural abnormality. Prior aortic valve replacement. Borderline cardiomegaly. Normal mediastinum and gui. Normal visualized pulmonary arteries. There is atherosclerotic tortuosity of the aortic arch and descending thoracic aorta. Normal visualized thoracic spine. Normal visualized ribs, clavicles, and shoulders. There is no demonstrated abnormality of the visualized soft tissue structures of the upper abdomen. RAD/Chest 1 View (Portable) IMPRESSION: Persistent atelectasis and/or infiltrate at the left lung base although there has been improvement. Electronically Signed: John Villa MD at 12:25 EST ,
[2022-08-03] MEDS: Ondansetron ODT 4 MG Tablet PO (11:29)
--- NOTE | 2022-08-03 12:23 | CASEMGMT ---
Updated Ayesha at [facility] that pt plans to dc to SNF at this time.
--- NOTE | 2022-08-03 14:16 | CASEMGMT ---
Discharge Blower Insulator This marketing copywriter asked Yamile at [facility] to review referral. Abbey PACK Animal Care Worker
--- NOTE | 2022-08-03 15:05 | CASEMGMT ---
Social Work Erika from [facility] called to report pt not able to be accepted. SNF still has high numbrrs of Covid residents and have no male beds open. [facility]
--- NOTE | 2022-08-03 15:07 | CASEMGMT ---
Discharge Setup Operator [facility]ile from [facility] reached out. Patient has been accepted. Precert is being started. NUHA Pitts notified. Abbey PACK Hybrid Tester
--- NOTE | 2022-08-03 15:20 | CASEMGMT ---
Social Work SW called pt daughter to inform of acceptance at [facility]. Daughter voiced understanding. Explained insurance auth process. Daughter understanding. PLAN: [facility], pending precert. [facility]
[2022-08-03 15:33] LABS: Pathologist Review Reviewed
[2022-08-03] MEDS: Tamsulosin HCl 0.4 MG Capsule PO (20:30)
[2022-08-04] MEDS: Vancomycin 125 MG/5 ML Susp PO.SYRINGE PO ×3 (00:45→11:04)
[2022-08-04 02:26] VITALS: BP 120/95; PULSE 63; RESP 15; TEMP 37.2; O2SAT 99
[2022-08-04] MEDS: Ipratropium/Albuterol Sulfate 3 ML AMPUL.NEB INHALATION ×2 (07:11→11:08)
[2022-08-04 07:12] VITALS: PULSE 82; RESP 17
[2022-08-04] MEDS: Cyanocobalamin 500 MCG Tablet PO (07:59)
[2022-08-04] MEDS: Enoxaparin 30 MG/0.3 ML Syringe SC (07:59)
[2022-08-04] MEDS: Pantoprazole Sodium 40 MG Tablet PO (07:59)
[2022-08-04] MEDS: Aspirin E.C. 81 MG Tablet PO (07:59)
[2022-08-04] MEDS: Ascorbic Acid 500 MG Tablet PO (07:59)
[2022-08-04] MEDS: Iron Polysaccharide Complex 150 MG CAPSULE PO (07:59)
[2022-08-04] MEDS: Cholecalciferol (VIT D3) 25 MCG TABLET (1,000 UNITS) 50 MCG PO (07:59)
[2022-08-04] MEDS: Juven (unflavored) Packet 1 PACKET PO (08:00)
[2022-08-04] MEDS: Menthol/Lanolin/Calamine/Znox 113 GM Tube 1 APPLIC TOPICAL (08:04)
[2022-08-04 08:54] VITALS: BP 116/88; PULSE 92; RESP 16; TEMP 36.6; O2SAT 99
--- NOTE | 2022-08-04 09:49 | TREXTCAR_ITS ---
Diet Diet Order/Speech Therapy: 07/31/22 13:16 Diet: Cardiac - Heart Healthy Food consistency:: Regular Liquid Consistency:: Regular/Thin Type of Dietary Supplement:: Ensure Plus High Protein Diet Comments: 120 ml ensure plus TID w/ meals Routine Orders/Code Status Suppository Type: Dulcolax 10mg Suppository Frequency: Daily PRN Keep PO Greater than or Equal to (%): 94 Routine Lab Work: CBC (within 3 days) and - (CMP within 3 days) Code Status: Full Code Wound(s) coccyx: Wound Type: Pressure Injury left arm: Wound Type: Skin Tear Dressing Change: Adaptic right arm: Wound Type: Skin Tear Dressing Change: Adaptic right buttock: Wound Type: Pressure Injury Therapies Weight Bearing: Weight bearing as tolerated Physical Therapy: Eval and Treat Occupational Therapy: Eval and Treat Problem/Diagnosis (1) Syncope: Status: Acute Code(s): R55 - Syncope and collapse (2) Dehydration: Status: Acute Code(s): E86.0 - Dehydration (3) History of Clostridium difficile infection: Status: Acute Code(s): Z86.19 - Personal history of other infectious and parasitic diseases (4) Generalized weakness: Status: Acute Code(s): R53.1 - Weakness (5) Hypernatremia: Status: Acute Code(s): E87.0 - Hyperosmolality and hypernatremia Plan 1. Debility, recurrent falls, multifactorial, 2. Recurrent C. difficile 3. Hypernatremia 4. Non-gap metabolic acidosis likely secondary to diarrhea 5. DELGADO on CKD stage IV 6. Iron deficiency anemia Allergies/Procedures Done in Hospital Allergies adhesive Allergy (Verified 07/31/22 10:02) burn-like needs paper tape cortisone [Cortisone] Allergy (Verified 07/31/22 10:02) Rash simvastatin Adverse Reaction (Verified 07/31/22 10:02) joint/muscle aches Procedures: None Type of Care/Length of Stay Estimated LOS: Convalescent Care Less Than 30 days Type of Care Needed: Skilled Rehab Potential: Fair Prognosis: Fair Additional Orders/Day of Discharge Day of Discharge: 08/04/22 Dietary and Speech Recommendations Dietitian Recommendations/Changes: Continue cardiac diet. Will add 120 ml ensure plus high protein TID w/ meals. Will add Juventino BID for wound healing. Monitor BUN/creat and need to limit protein as needed. Discharge Plan Admission Admit Date/Time: 07/31/22 16:37 Primary Reason for Your Visit: Debility/acute recurrent c.diff Attending Provider: Melinda Suarez Primary Care Provider: Lex Gold Consulting Providers: Heather Rey ; José Sol Discharge Orders/Prescriptions Prescriptions: New Firvanq 25 mg/mL Recon Soln 125 mg PO .as directed Qty: 150 0RF Rx Instructions: 125mg twice daily for one week 125mg once daily for one week 125mg every other day for 2 weeks sodium bicarbonate 650 mg Tablet 650 mg PO TID Qty: 0 0RF menthol-zinc oxide [Calmoseptine] 0.44-20.6 % Ointment 1 applic topical BID Qty: 0 0RF Protocol: *Topical Application Instructions APPLICATION INSTRUCTIONS: buttocks Juventino (with collagen) 7-7-1.5 gram Powder In Packet 1 packet PO BIDCM Qty: 0 0RF Continued omeprazole 40 MG capsule 40 mg PO DAILY tamsulosin 0.4 MG capsule 0.4 mg PO QHS aspirin 81 mg tablet,delayed release (DR/EC) 81 mg PO DAILY acetaminophen 325 mg Tablet 325 - 650 mg PO Q6H PRN (Reason: Pain) polysaccharide iron complex [iFerex 150] 150 mg iron capsule 150 mg PO DAILY zinc sulfate 50 mg zinc (220 mg) Tablet 50 mg PO DAILY cyanocobalamin (vitamin B-12) 500 mcg tablet 500 mcg PO DAILY ascorbic acid (vitamin C) [Vitamin C] 500 mg Tablet 500 mg PO BID ondansetron 4 mg Tablet,Disintegrating 4 mg PO Q4H PRN (Reason: NAUSEA/VOMITING) dextromethorphan-benzocaine 5-7.5 mg Lozenge 1 ralph PO Q2H PRN (Reason: SORE THROAT/COUGH) cholecalciferol (vitamin D3) [Vitamin D3] 50 mcg (2,000 unit) Tablet 50 mcg PO DAILY Discontinued vancomycin 50 mg/mL recon soln 125 mg PO Q6H 7 Days Qty: 70 0RF Referrals / Follow Up: [facility] Gold MD [Primary Care Provider] - Disposition Disposition (needs filled in before D/C Order can be placed): Long Term Facility
[2022-08-04 10:47] LABS: ALB/GLOB Ratio 0.4 RATIO (0.9-2.4); AST(SGOT) 29 U/L (15-37); Alanine Aminotransfer ALT/SGPT 31 U/L (16-61); Albumin, Serum 1.5 g/dL (3.2-5.0); Alkaline Phosphatase 355 U/L (45-117); Anion Gap 6 (5-15); BUN 75 mg/dL (7-18); BUN/Creat Ratio 25.1 RATIO (10-20); Calcium,Total 7.7 mg/dL (8.5-10.1); Chloride 127 mmol/L (98-107); Creatinine, Serum 2.99 mg/dL (0.70-1.30); EST Glomerular Filtration Rate 21 mL/min (>60); Est Glom Filt Rate - Afr Amer 26 mL/min (>60); Estimated Creatinine Clearance 20.78 ml/min; Glucose 88 mg/dL (74-106); Potassium 4.6 mmol/L (3.5-5.1); Protein, Total 5.5 g/dL (6.4-8.2); Sodium Level 148 mmol/L (136-145)
--- NOTE | 2022-08-04 11:05 | PCM.DC.SUM ---
Providers Date of Admission: 07/31/22 Date of Discharge: 08/05/22 Primary Care Physician: Dr. Lex Gold MD Consultations 07/31/22 13:16 Consult: Infectious Disease Routine Consulting Provider: José Sol Reason for Consult: recurrent C Diff EMERGENT Consult: No MD Notified: Yes Date Notified: 08/01/22 Time Notified: 10:07 Method of Notification: Text 08/01/22 07:21 Consult: Onc/Wound/privacy attorney Routine Comment: Reason For Visit: DEBILITY, MECHANICAL FALL Diagnosis Discharge Diagnosis (1) Syncope: Status: Acute Code(s): R55 - Syncope and collapse (2) Dehydration: Status: Acute Code(s): E86.0 - Dehydration (3) History of Clostridium difficile infection: Status: Acute Code(s): Z86.19 - Personal history of other infectious and parasitic diseases (4) Generalized weakness: Status: Acute Code(s): R53.1 - Weakness (5) Hypernatremia: Status: Acute Code(s): E87.0 - Hyperosmolality and hypernatremia Plan 1. Debility, recurrent falls, multifactorial, 2. Recurrent C. difficile 3. Hypernatremia 4. Non-gap metabolic acidosis likely secondary to diarrhea 5. DELGADO on CKD stage IV 6. Iron deficiency anemia Medications at Discharge Home Medications omeprazole 40 mg capsule,delayed release 40 mg PO DAILY ACID REFLUX 06/30/16 tamsulosin 0.4 mg capsule 0.4 mg PO QHS PROSTATE 05/26/17 aspirin 81 mg tablet,delayed release 81 mg PO DAILY heart health 06/26/22 acetaminophen 325 mg tablet 325 - 650 mg PO Q6H PRN Pain 07/22/22 ascorbic acid (vitamin C) 500 mg tablet (Vitamin C) 500 mg PO BID SUPPLEMENT 07/22/22 cholecalciferol (vitamin D3) 50 mcg (2,000 unit) tablet (Vitamin D3) 50 mcg PO DAILY SUPPLEMENT 07/22/22 cyanocobalamin (vitamin B-12) 500 mcg tablet 500 mcg PO DAILY SUPPLEMENT 07/22/22 dextromethorphan-benzocaine 5 mg-7.5 mg lozenges 1 ralph PO Q2H PRN SORE THROAT/COUGH 07/22/22 ondansetron 4 mg disintegrating tablet 4 mg PO Q4H PRN NAUSEA/VOMITING 07/22/22 polysaccharide iron complex 150 mg iron capsule (iFerex 150) 150 mg PO DAILY SSUPPLEMENT 07/22/22 zinc sulfate 50 mg zinc (220 mg) tablet 50 mg PO DAILY SUPPLEMENT 07/22/22 vancomycin 25 mg/mL oral solution (Firvanq) 125 mg (5 mL) PO .as directed #150 mL 08/02/22 arginine 7 gram-glutam 7 gram-CaHMB 1.5 [id number]-min oral pwd pkt (Juventino (with collagen)) 1 packet PO BIDCM #0 ea 08/04/22 menthol 0.44 %-zinc oxide 20.6 % topical ointment (Calmoseptine) 1 applic topical BID #0 grams 08/04/22 sodium bicarbonate 650 mg tablet 650 mg PO TID #0 tabs 08/04/22 Hospital Course Operations None Procedures None Summary of Care Provided Minutes Spent on Discharge: 35 Hospital Course: 86-year-old male with multiple comorbidities who was recently admitted and discharged from the hospital with generalized weakness, acute COVID-19 infection and acute C. difficile 4 days prior to admission. At the time of discharge, he had refused to go to a correction facility and was discharged home with home health. According to family, patient was very weak. Home health had only visited only once. He felt in the bathroom and was still having significant diarrhea. His family stated that he was probably on the floor for about 5 hours before the family was called. In the emergency room, patient's vitals were stable. His WBC count was 9.1, hemoglobin 9.7, platelet 147. His admitting creatinine was 2.93. Patient was admitted to the [facility] floor, he was continued on oral vancomycin, he did receive IV fluids. Infectious disease were consulted during this hospital stay. He was seen by PT and OT and skilled for discharge to correction facility. Patient did have evidence of worsening metabolic acidosis and was started on oral sodium bicarbonate. His bicarbonate remained stable at the time of discharge. Patient will need repeat CMP and CBCD within 3 days of discharge. He will need to be on oral vancomycin for total of 4 weeks. Physical Exam Narrative Physical exam: General: Alert, Oriented x3, Cooperative, appears very frail HEENT: Atraumatic Oral: Moist Mucosa Neck: Supple Lungs: Diminished to auscultation Cardiovascular: HS I+II, regular, no murmurs Abdomen: Bowel Sounds Present, Soft, Non Tender Extremities: Bilateral pedal edema +1 Skin: No rashes, No breakdown Neurological: Grossly intact Psych/Mental Status: Appropriate Weight / BMI Weight Weight: 83.5 kg Body Mass Index (BMI) 24.3 ABG / Lab / Microbiology Data Result Diagrams: 08/03/22 05:00 08/04/22 10:22 Laboratory: Laboratory Results - last 24 hr 08/03/22 05:00: Diff Path Review Reviewed 08/04/22 10:22: Sodium 148 H, Potassium 4.6, Chloride 127 H*, Carbon Dioxide 15.0 L, Anion Gap 6, BUN 75 H, Creatinine 2.99 H, Estim Creat Clear Calc 20.78, Est GFR (MDRD) Af Amer 26 L, Est GFR (MDRD) Non-Af 21 L, BUN/Creatinine Ratio 25.1 H, Glucose 88, Calcium 7.7 L, Total Bilirubin 0.30, AST 29, ALT 31, Alkaline Phosphatase 355 H, Total Protein 5.5 L, Albumin 1.5 L, Globulin 4.0, Albumin/Globulin Ratio 0.4 L Microbiology: Microbiology 08/04/22 10:05 Nasal Secretion SARS-CoV-2 Antigen (Rapid) - Final Radiography Diagnostic Testing: Radiology Impression Chest X-Ray 08/03/22 11:21 IMPRESSION: Persistent atelectasis and/or infiltrate at the left lung base although there has been improvement. Electronically Signed: John Villa MD at 12:25 EST Reading Location ID and State: [facility] / [place] , Service support , D/C Instructions Discharge Diet: No restrictions Meaningful Use Info Meaningful Use Diagnoses (Choose all that apply): None applicable Discharge Plan Admission Admit Date/Time: 07/31/22 16:37 Primary Reason for Your Visit: Debility/acute recurrent c.diff Attending Provider: Melinda Suarez Primary Care Provider: [facility] Gold Consulting Providers: Heather Rey ; José Sol Discharge Orders/Prescriptions Prescriptions: New Firvanq 25 mg/mL Recon Soln 125 mg PO .as directed Qty: 150 0RF Rx Instructions: 125mg twice daily for one week 125mg once daily for one week 125mg every other day for 2 weeks sodium bicarbonate 650 mg Tablet 650 mg PO TID Qty: 0 0RF menthol-zinc oxide [Calmoseptine] 0.44-20.6 % Ointment 1 applic topical BID Qty: 0 0RF Protocol: *Topical Application Instructions APPLICATION INSTRUCTIONS: buttocks Juventino (with collagen) 7-7-1.5 gram Powder In Packet 1 packet PO BIDCM Qty: 0 0RF Continued omeprazole 40 MG capsule 40 mg PO DAILY tamsulosin 0.4 MG capsule 0.4 mg PO QHS aspirin 81 mg tablet,delayed release (DR/EC) 81 mg PO DAILY acetaminophen 325 mg Tablet 325 - 650 mg PO Q6H PRN (Reason: Pain) polysaccharide iron complex [iFerex 150] 150 mg iron capsule 150 mg PO DAILY zinc sulfate 50 mg zinc (220 mg) Tablet 50 mg PO DAILY cyanocobalamin (vitamin B-12) 500 mcg tablet 500 mcg PO DAILY ascorbic acid (vitamin C) [Vitamin C] 500 mg Tablet 500 mg PO BID ondansetron 4 mg Tablet,Disintegrating 4 mg PO Q4H PRN (Reason: NAUSEA/VOMITING) dextromethorphan-benzocaine 5-7.5 mg Lozenge 1 ralph PO Q2H PRN (Reason: SORE THROAT/COUGH) cholecalciferol (vitamin D3) [Vitamin D3] 50 mcg (2,000 unit) Tablet 50 mcg PO DAILY Discontinued vancomycin 50 mg/mL recon soln 125 mg PO Q6H 7 Days Qty: 70 0RF Referrals / Follow Up: Sidra Carias MD [Med Staff - Consulting] - In 1 Week Lex Gold MD [Primary Care Provider] - Disposition Disposition (needs filled in before D/C Order can be placed): [facility] Facility Charges/Coding Visit Charges Inpatient E&M: 35569 Disch Hosp
[2022-08-04 11:08] VITALS: PULSE 81; RESP 16
[2022-08-04 11:22] VITALS: BP 113/81; PULSE 55; RESP 16; TEMP 36.7; O2SAT 94
[2022-08-04] MEDS: Sodium Bicarbonate 650 MG Tablet PO (12:11)
--- NOTE | 2022-08-04 12:13 | CASEMGMT ---
Addendum entered by Tessy Haynes 08/04/22 12:45: SW Note SW requested wheelchair transportation from [facility] for patient. Patient's orders sent to [facility] via [facility]. [facility]NG Mccoy Original Note: NUHA Note SW received note via [facility] obtained pre-cert and can accept patient. SW completed 7000 for patient's stay. SW coordinated transportation for patient with [facility] and was given a 1pm cherry picker operator time. SW updated patient's RN that pre-cert was obtained and there was a 1pm cherry picker operator time. RN voiced understanding. NUHA met with patient and introduced herself and role as [facility] Master Ship. SW informed patient [facility] had obtained pre-cert and transportation was scheduled for 1pm. Patient reported an understanding and wanted his family informed so they can bring him clothes. NUHA briefly explained to patient he would be responsible for transportation fees, patient reported understanding. NUHA contacted patient's daughter, Bernadine, and informed her patient would be discharging to [facility] around 1pm. Patient's daughter reported an understanding and stated they would try to bring his clothing to the hospital but if they were not able to get here by 1pm, they would take his items to [facility]. Plan: D/C to [facility] on convalescent stay KV[facility] Mccoy
== END 2022-08-04 13:15 | disposition skilled nursing facility (03) | DRG 372 ==
LOC: ED 12:09 → MS3 13:00
PROVIDERS: Admitting Provider Student in an Organized Health Care Education/Training Program; Emergency Provider Emergency Medicine; PCP Internal Medicine; Visit Provider Internal Medicine
DX: A04.71 Enterocolitis due to Clostridium difficile, recurrent (principal); N17.9 Acute kidney failure, unspecified; E87.0 Hyperosmolality and hypernatremia; E87.20 Acidosis, unspecified; N18.4 Chronic kidney disease, stage 4 (severe); I25.10 Atherosclerotic heart disease of native coronary artery without angina pectoris; E86.0 Dehydration; D50.9 Iron deficiency anemia, unspecified; I12.9 Hypertensive chronic kidney disease with stage 1 through stage 4 chronic kidney disease, or unspecified chronic kidney disease; S00.83XA Contusion of other part of head, initial encounter; E78.5 Hyperlipidemia, unspecified; Z79.82 Long term (current) use of aspirin; R55 Syncope and collapse; Z87.891 Personal history of nicotine dependence; R29.6 Repeated falls; Z86.16 Personal history of COVID-19
CPT/HCPCS: 36415; 70450; 71045; 73060; 73090; 80048; 80053; 81001; 82550; 85025; 87426; 93005; 94640; 97116; 97162; 97166; 97530; 97535; 97802; 99251; 99285; J7030; A4216; G0463; J7799

== ENCOUNTER 2022-08-27 02:06 | Emergency (ER) | payer MEDICARE, SELFPAY ==
[2022-08-27 02:07] VITALS: PULSE 80; RESP 18; TEMP 36; O2SAT 98; BMI 23.7
--- NOTE | 2022-08-27 02:25 | CT_ITS ---
INDICATION: head injury EXAMINATION: CT BRAIN - CT Head or Brain W/O Contrast Injection TECHNIQUE: Multiple axial images were obtained of the head without intravenous contrast. A radiation dose optimization technique was used for this scan. IV Contrast dosage and agent: None. COMPARISON: July 31, 2022, June 26, 2022 FINDINGS: BRAIN PARENCHYMA: No intracranial hemorrhage, mass, or focal mass effect. Chronic left occipital hypodensity compatible with evolution of prior infarct. Mild periventricular hypodense chronic small vessel white matter ischemic change. Carotid and vertebral atherosclerosis. CSF SPACES: Mild global cerebral volume loss. No hydrocephalus. Basal cisterns are patent. CALVARIUM, SKULL BASE, PARANASAL SINUSES AND MASTOID AIR CELLS: No acute osseous finding. Minimal scattered paranasal sinus mucoperiosteal thickening. Mastoid air cells are clear. ORBITS: Both globes, extraocular muscles, optic nerves and retrobulbar fat appear unremarkable. ASPECTS Score for Acute Strokes: 10 CT/Brain/Head without Contrast IMPRESSION: No evidence of intracranial hemorrhage. Sequela of prior left occipital infarct. Mild senescent changes with atherosclerosis. Electronically Signed: Claude Melton MD at 3:38 EST ,
--- NOTE | 2022-08-27 02:25 | CT_ITS ---
INDICATION: head injury EXAMINATION: CT FACIAL BONES - CT Maxillofacial W/O Contrast Injection TECHNIQUE: Helically acquired images were obtained of the facial bones. A radiation dose optimization technique was used for this scan. IV Contrast dosage and agent: None. COMPARISON: CT head on same day. FINDINGS: SOFT TISSUES: Left preseptal periorbital edema.. No radiodense soft tissue foreign body. Carotid atherosclerosis. VISUALIZED PARANASAL SINUSES: Mild scattered paranasal sinus mucoperiosteal thickening. Mild left osseous nasal septal deviation. Patent maxillary infundibula. VISUALIZED MASTOID AIR CELLS: Clear. FACIAL BONES, MANDIBLE AND TMJs: No displaced facial bone fracture. No lytic or blastic abnormality. VISUALIZED DENTITION: Partially absent dentition. Right mandibular premolar alveolar root odontogenic abscesses. ORBITAL CONTENTS: Globes are intact. No retrobulbar edema. Symmetric rectus musculature. CT/Sinus/Facial Bone IMPRESSION: Left preseptal periorbital edema without evidence of intra-abdominal injury or fracture. Electronically Signed: Claude Melton MD at 3:49 EST ,
--- NOTE | 2022-08-27 02:25 | CT_ITS ---
INDICATION: injury EXAMINATION: CT CERVICAL SPINE - CT Spine Cervical W/O Contrast Injection TECHNIQUE: Helically acquired images were obtained of the cervical spine. 2D reformatted images were reviewed. A radiation dose optimization technique was used for this scan. IV Contrast dosage and agent: None. COMPARISON: None. FINDINGS: VERTEBRAE: No fracture or acute compression deformity. No discrete lytic or blastic abnormality. Normal alignment. Normal craniocervical junction and cervicothoracic junction. Minimal fluid right inferior mastoid air cells. DISCS and SPINAL CANAL: Disc height loss, most prominent in the lower cervical spine. Small posterior disc osteophyte complexes most prominent C3-C4, C5-C6, C6-C7 with mild spinal canal stenosis. Mid cervical facet arthropathy with up to severe neural foraminal stenosis bilateral C3-C4. NECK SOFT TISSUES: No prevertebral soft tissue swelling. There is no cervical adenopathy. LUNG APICES: Clear. CT/Spine Cervical without Contras IMPRESSION: No evidence of acute cervical spinal fracture or spondylolisthesis. Spondylosis as above. Electronically Signed: Claude Melton MD at 3:56 EST ,
[2022-08-27] MEDS: Tetracaine 0.5% Ophthalmic Bottle 1 DRP LEFT EYE (02:34)
[2022-08-27] MEDS: Fluorescein 1 MG STRIP 1 STRIP LEFT EYE (02:35)
--- NOTE | 2022-08-27 02:51 | RAD_ITS ---
INDICATION: fall EXAMINATION/TECHNIQUE: X-RAY - XR Pelvis 1 or 2 Views COMPARISON: July 03, 2022. FINDINGS: PELVIC BONES: No displaced fracture, destructive or sclerotic lesions. Note that overlapping bowel shadows may however obscure fine detail. Sacroiliac joints are unremarkable. No widening of the pubic symphysis. HIPS: Normal bilateral hip alignment with mild osteophyte formation.. No displaced fracture seen in this frontal view. SOFT TISSUES: No soft tissue swelling or gas. RAD/Pelvis 1 or 2 Views IMPRESSION: No evidence of displaced pelvic or hip fracture. If there is a clinical concern for fracture consider CT. Electronically Signed: Claude Melton MD at 3:21 EST ,
[2022-08-27 03:53] VITALS: BP 126/83; PULSE 74; RESP 18; O2SAT 97
--- NOTE | 2022-08-27 05:53 | EX.ED.VIS.EY ---
HPI History of Present Illness Chief Complaint: Eye Problem Narrative Narrative: Patient is an 86-year-old male sent from the long term secondary to unwitnessed fall and facial/head trauma. Patient has a past medical history of chronic kidney disease and generalized weakness, according to the long term patient was found down next to the bed and noticed to have swelling and bleeding around the left eye. The patient is at his baseline mental status per long term but with the unwitnessed fall and signs of head/facial trauma he was sent in for evaluation. Upon arrival to the ER patient has no complaints and states that his vision is not altered [facility] Medical History Abdominal aortic aneurysm (AAA) Abdominal aortic aneurysm without rupture Acute kidney injury Anasarca Atherosclerotic heart disease of [place] coronary artery without angina pectoris BPH (benign prostatic hyperplasia) C. difficile colitis CAD (coronary artery disease) Chronic kidney disease COVID Esophageal cancer Essential hypertension Gastric adenocarcinoma Generalized weakness Gout History of left heart catheterization (LHC) (~06/26/19) HTN (hypertension) Hyperlipidemia Hyperphosphatemia Kidney stones Macrocytic anemia Metabolic acidosis Murmur, cardiac Non-rheumatic aortic stenosis Old myocardial infarction Presence of stent in coronary artery (~09/05/02) Severe protein-calorie malnutrition Sleep apnea Home Medications omeprazole 40 mg capsule,delayed release 40 mg PO DAILY ACID REFLUX 06/30/16 [History Last Taken 07/21/22] tamsulosin 0.4 mg capsule 0.4 mg PO QHS PROSTATE 05/26/17 [History Last Taken 07/21/22] aspirin 81 mg tablet,delayed release 81 mg PO DAILY heart health 06/26/22 [History Last Taken 07/21/22] acetaminophen 325 mg tablet 325 - 650 mg PO Q6H PRN Pain 07/22/22 [History Last Taken Unknown] ascorbic acid (vitamin C) 500 mg tablet (Vitamin C) 500 mg PO BID SUPPLEMENT 07/22/22 [History Last Taken 07/21/22] cholecalciferol (vitamin D3) 50 mcg (2,000 unit) tablet (Vitamin D3) 50 mcg PO DAILY SUPPLEMENT 07/22/22 [History Last Taken 07/21/22] cyanocobalamin (vitamin B-12) 500 mcg tablet 500 mcg PO DAILY SUPPLEMENT 07/22/22 [History Last Taken 07/21/22] dextromethorphan-benzocaine 5 mg-7.5 mg lozenges 1 ralph PO Q2H PRN SORE THROAT/COUGH 07/22/22 [History Last Taken Unknown] ondansetron 4 mg disintegrating tablet 4 mg PO Q4H PRN NAUSEA/VOMITING 07/22/22 [History Last Taken Unknown] polysaccharide iron complex 150 mg iron capsule (iFerex 150) 150 mg PO DAILY SSUPPLEMENT 07/22/22 [History Last Taken 07/21/22] zinc sulfate 50 mg zinc (220 mg) tablet 50 mg PO DAILY SUPPLEMENT 07/22/22 [History Last Taken 07/21/22] vancomycin 25 mg/mL oral solution (Firvanq) 125 mg (5 mL) PO .as directed #150 mL 08/02/22 [Rx Last Taken Unknown] arginine 7 gram-glutam 7 gram-CaHMB 1.5 awub-qhoar-il-min oral pwd pkt (Juventino (with collagen)) 1 packet PO BIDCM #0 ea 08/04/22 [Rx Last Taken Unknown] menthol 0.44 %-zinc oxide 20.6 % topical ointment (Calmoseptine) 1 applic topical BID #0 grams 08/04/22 [Rx Last Taken Unknown] sodium bicarbonate 650 mg tablet 650 mg PO TID #0 tabs 08/04/22 [Rx Last Taken Unknown] Allergy/AdvReac Type Severity Reaction Status Date / Time adhesive Allergy burn-like Verified 07/31/22 10:02 cortisone [Cortisone] Allergy Rash Verified 07/31/22 10:02 simvastatin AdvReac joint/muscle Verified 07/31/22 10:02 aches Family History Father Congestive heart failure Mother Colon cancer Surgical History H/O right inguinal hernia repair History of cholecystectomy History of cholecystectomy History of gastrectomy (~07/2014) Presence of coronary angioplasty implant and graft (~09/05/02) S/P TAVR (transcatheter aortic valve replacement) (~12/27/19) Social History household members: spouse Smoking Status: Former smoker how long ago did patient quit smoking: Quit ~20 yrs prior, smoked since late 20s until quit, pipe specifically. alcohol intake: never substance use type: does not use ROS ROS ED Constitutional Constitutional ED: Denies chills or fever(s) Eyes Eyes: Denies blurry vision or change in vision ENT ENT ED: Denies sore throat Cardiovascular Cardiovascular: Denies chest pain Respiratory/Chest Respiratory/Chest: Denies cough or dyspnea Gastrointestinal Gastrointestinal: Denies abdominal pain, diarrhea, nausea or vomiting Genitourinary Genitourinary ED: Denies dysuria Musculoskeletal Musculoskeletal: Denies back pain, myalgias or neck pain Integumentary Denies rash Neurologic Neurologic: Denies headache(s) Hematologic/Lymphatic Hematologic/Lymphatic: Denies easy bleeding or easy bruising EXAM Physical Exam Const Vital Signs: 08/27/22 02:07 08/27/22 03:53 Temperature 96.8 F L Temperature Source Temporal Pulse Rate 80 74 Respiratory Rate 18 18 Blood Pressure 126/83 H Blood Pressure Mean 97 Pulse Ox 98 97 Oxygen Delivery Method Room Air Room Air Positive well nourished and well developed General Appearance ED: well developed HEENT HEENT Narrative: Patient has soft tissue swelling with ecchymosis along the left orbit and cheek consistent with report of fall. However there are no signs of depressed or basilar skull fracture. No septal hematoma noted. Eyes PERRL and EOMs intact bilaterally Eyes Narrative: Pupils are equal and reactive to light and accommodation bilaterally. Extraocular motions are intact bilaterally. Patient has a large subconjunctival hemorrhage of the left eye consistent with his trauma. Despite this Núñez lamp exam reveals no corneal abrasion and a negative Jacqueline sign. There is no derangement in vision. The blood does not cross into the iris indicating it is purely in the subconjunctival region. Eye pressure is normal at 12. Neck supple Neck Narrative: No bony deformity or step-off of the cervical spine no midline pain with palpation Resp normal respiratory effort and clear to auscultation bilaterally Cardio regular rate and regular rhythm GI non-tender and non-distended Auscultation: normoactive bowel sounds Palpation: soft Back/Spine Back/Spine Narrative: No bony deformity or step-off of the thoracic or lumbar spine no midline pain with palpation Extremity Extremity Narrative: Pelvis is stable there is no shortening or external rotation of either lower extremity Patient has mild/+1 edema to the bilateral lower extremities that is equal and symmetric and chronic in nature Patient has slight difficulty lifting both arms and legs from history of generalized weakness/debility but this is chronic in nature and there is no new weakness Neuro CN's II-XII intact bilaterally Neuro Narrative: Patient is awake and alert to person and place and disoriented to time which is his baseline mental status per long term but otherwise there are no focal findings Sensorium / Orientation: alert Psych mental status grossly normal Skin Skin Narrative: Patient has soft tissue swelling and ecchymosis along the left orbit and cheek consistent with trauma but otherwise normal MDM MDM MDM Narrative Medical decision making narrative: Patient presented to the ER with stable vitals and at baseline mental status. Secondary to the facial trauma CTs of the head cervical spine and face were obtained. Imaging studies revealed no acute traumatic changes such as skull fracture subarachnoid hemorrhage orbital floor fracture or retrobulbar hematoma. The case was discussed with Dr. Desir/ophthalmology. He agrees that as the patient has no derangement in vision there is no signs of globe rupture no retrobulbar hematoma and the patient's intraocular pressure is normal but there is no need for emergent intervention and he can be discharged home and follow-up on an outpatient basis if necessary. The plan of care was discussed with patient and family and they are agreeable to it and therefore he will be discharged at this time Radiography Diagnostic Testing: Clinical Impression(s) from Imaging Studies Brain CT 08/27/22 02:25 IMPRESSION: No evidence of intracranial hemorrhage. Sequela of prior left occipital infarct. Mild senescent changes with atherosclerosis. Electronically Signed: Claude Melton MD at 3:38 EST , Cervical Spine CT 08/27/22 02:25 IMPRESSION: No evidence of acute cervical spinal fracture or spondylolisthesis. Spondylosis as above. Electronically Signed: Claude Melton MD at 3:56 EST , Facial/Sinus 08/27/22 02:25 IMPRESSION: Left preseptal periorbital edema without evidence of intra-abdominal injury or fracture. Electronically Signed: Claude Melton MD at 3:49 EST , Pelvis X-Ray 08/27/22 02:51 IMPRESSION: No evidence of displaced pelvic or hip fracture. If there is a clinical concern for fracture consider CT. Electronically Signed: Claude Melton MD at 3:21 EST , Treatment and Re-Evaluation Narrative: 1 view pelvis x-ray as interpreted by the emergency medicine physician reveals no acute fracture or dislocation Discharge Plan Triage Chief Complaint: Eye Problem ED Provider: Victoriano Henry Dx/Rx/DC Orders Clinical Impression: Traumatic subconjunctival hemorrhage of left eye, Closed head injury, CKD (chronic kidney disease) stage 3, GFR 30-59 ml/min, Generalized weakness Instructions: ED Subconjunctival Hemorrhage Prescriptions: No Action omeprazole 40 MG capsule 40 mg PO DAILY tamsulosin 0.4 MG capsule 0.4 mg PO QHS aspirin 81 mg tablet,delayed release (DR/EC) 81 mg PO DAILY acetaminophen 325 mg Tablet 325 - 650 mg PO Q6H PRN (Reason: Pain) polysaccharide iron complex [iFerex 150] 150 mg iron capsule 150 mg PO DAILY zinc sulfate 50 mg zinc (220 mg) Tablet 50 mg PO DAILY cyanocobalamin (vitamin B-12) 500 mcg tablet 500 mcg PO DAILY ascorbic acid (vitamin C) [Vitamin C] 500 mg Tablet 500 mg PO BID ondansetron 4 mg Tablet,Disintegrating 4 mg PO Q4H PRN (Reason: NAUSEA/VOMITING) dextromethorphan-benzocaine 5-7.5 mg Lozenge 1 ralph PO Q2H PRN (Reason: SORE THROAT/COUGH) cholecalciferol (vitamin D3) [Vitamin D3] 50 mcg (2,000 unit) Tablet 50 mcg PO DAILY Firvanq 25 mg/mL Recon Soln 125 mg PO .as directed Qty: 150 0RF Rx Instructions: 125mg twice daily for one week 125mg once daily for one week 125mg every other day for 2 weeks sodium bicarbonate 650 mg Tablet 650 mg PO TID Qty: 0 0RF menthol-zinc oxide [Calmoseptine] 0.44-20.6 % Ointment 1 applic topical BID Qty: 0 0RF Protocol: *Topical Application Instructions APPLICATION INSTRUCTIONS: buttocks Juventino (with collagen) 7-7-1.5 gram Powder In Packet 1 packet PO BIDCM Qty: 0 0RF Primary Care Provider: Lex Gold Referrals: Lex Gold MD [Primary Care Provider] - Activity Restrictions/Additional Instructions: Your work-up today shows you have bleeding to the eye but there is no actual globe rupture or eye trauma that require surgical intervention. The CAT scan shows no signs of skull fracture or brain bleed or facial fracture. The bleeding within the left eye will spontaneously resolve over the next 1 to 2 weeks. He can use lubricating eyedrops if you have any irritation or pain. If you have any further concerns you can return to the ER or follow-up with ophthalmology for repeat evaluation Disposition Disposition: Home, Self Care
--- NOTE | 2022-08-27 06:00 | NURSING ---
PHYSICIANS SAID 90-2 HRS ETA. (A)
[2022-08-27 06:09] VITALS: BP 112/75; PULSE 73; RESP 18; O2SAT 97
--- NOTE | 2022-08-27 06:19 | NURSING ---
report called to Eliz at [facility]
== END 2022-08-27 08:07 | disposition home or self-care (01) ==
PROVIDERS: Emergency Provider Emergency Medicine; PCP Internal Medicine; Visit Provider Emergency Medicine
DX: H11.32 Conjunctival hemorrhage, left eye (principal); N18.30 Chronic kidney disease, stage 3 unspecified; S09.90XA Unspecified injury of head, initial encounter; R53.1 Weakness; I25.10 Atherosclerotic heart disease of native coronary artery without angina pectoris; I25.2 Old myocardial infarction; N40.0 Benign prostatic hyperplasia without lower urinary tract symptoms; Z95.5 Presence of coronary angioplasty implant and graft; Z86.16 Personal history of COVID-19; Z79.82 Long term (current) use of aspirin; Z79.899 Other long term (current) drug therapy; Z87.891 Personal history of nicotine dependence; W19.XXXA Unspecified fall, initial encounter
CPT/HCPCS: 70450; 70486; 72125; 72170; 99284; A4216

== ENCOUNTER → 2022-09-02 | Outpatient (REF) | payer MEDICARE, SELFPAY ==
[2022-09-02 07:59] LABS: Hematocrit 28.5 % (40-54); Hemoglobin 8.8 g/dL (13.0-16.5); Mean Corp Hgb Conc 30.9 g/dL (32-36); Mean Corpuscular Hgb 33.7 pg (27.0-32.0); Mean Corpuscular Volume 109.2 fL (80-94); Mean Platelet Vol. 11.9 fl (6.2-12.0); POSITIVE MORPHOLOGY YES; Platelet Count 101 K/mm3 (150-450); RBC Distribution Width CV 19.2 % (11.6-14.6); Red Blood Count 2.61 M/mm3 (4.6-6.2); White Blood Count 4.9 K/mm3 (4.4-11.0)
[2022-09-02 08:24] LABS: Anion Gap 8 (5-15); BUN 55 mg/dL (7-18); BUN/Creat Ratio 19.2 RATIO (10-20); Calcium,Total 7.7 mg/dL (8.5-10.1); Chloride 128 mmol/L (98-107); Creatinine, Serum 2.86 mg/dL (0.70-1.30); EST Glomerular Filtration Rate 23 mL/min (>60); Est Glom Filt Rate - Afr Amer 27 mL/min (>60); Glucose 78 mg/dL (74-106); Potassium 4.4 mmol/L (3.5-5.1); Sodium Level 154 mmol/L (136-145)
[2022-09-02 08:42] LABS: Scan Indicated on CBC? Y/N YES- FLAGS NOTED
== END ==
PROVIDERS: PCP Internal Medicine; Visit Provider Internal Medicine
DX: D64.9 Anemia, unspecified (principal); N40.0 Benign prostatic hyperplasia without lower urinary tract symptoms; I10 Essential (primary) hypertension
CPT/HCPCS: 36415; 80048; 85027

== ENCOUNTER 2022-09-07 05:38 | Emergency (ER) | payer MEDICARE, SELFPAY ==
[2022-09-07 05:39] VITALS: BP 108/79; PULSE 76; RESP 18; TEMP 36.1; O2SAT 97; BMI 22.9
--- NOTE | 2022-09-07 06:40 | RAD_ITS ---
STUDY: X-RAY - LUMBAR SPINE REASON FOR EXAM: Male, 86 years old patient with low back pain. TECHNIQUE: AP and lateral view(s) of the lumbar spine were obtained. COMPARISON: CT of the abdomen and pelvis dated May 26, 2017. FINDINGS: There is an exaggerated lumbar lordosis. There is mild retrolisthesis at L2-3. There is no substantial scoliosis. There is a normal alignment of the vertebrae. There is multilevel endplate spondylosis of the lumbar vertebrae. There is multi-level degenerative disc disease with multi-level disc space narrowing. There is no demonstrated fracture. There is moderately severe degenerative arthropathy of the facet joints of the lumbar spine. There is atherosclerotic calcification of the abdominal aorta without a demonstrated aneurysm. Surgical clips are visible in the right upper quadrant. RAD/Lumbar Spine 2 or 3 Views IMPRESSION: Degenerative changes of the spine, as detailed above. Electronically Signed: Lisa Comer MD at 7:38 EST ,
--- NOTE | 2022-09-07 06:40 | RAD_ITS ---
STUDY: X-RAY - RIGHT ELBOW REASON FOR EXAM: Male, 86 years old patient with elbow pain. TECHNIQUE: 3 view(s) of the elbow. COMPARISON: None. FINDINGS: Normal visualized humerus, radius and ulna. There is degenerative arthrosis of the radiocapitellar and ulnotrochlear articulations. There is soft tissue swelling. There is no demonstrated fracture. RAD/Elbow min 3 Views IMPRESSION: Degenerative arthropathy and soft tissue swelling. Electronically Signed: Lisa Comer MD at 7:34 EST ,
--- NOTE | 2022-09-07 06:40 | CT_ITS ---
STUDY: CT BRAIN WITHOUT CONTRAST REASON FOR EXAM: Male, 86 years old patient with closed head injury after fall. RADIATION DOSAGE (If Supplied By Facility): CTDIvol = ( 44.99 ) mGy, DLP = ( 829.85 ) mGycm TECHNIQUE: Transaxial CT imaging of the brain was performed without administration of intravenous contrast material. Multiplanar reformations are submitted for interpretation. Individualized dose optimization techniques were used for this CT. COMPARISON: CT of the head dated July 31, 2022. FINDINGS: Normal soft tissue structures. Normal calvarium. There is mild cerebral atrophy with widening of the extra-axial spaces and ventricular dilatation. There are areas of decreased attenuation within the white matter tracts of the supratentorial brain, consistent with microvascular disease changes. Normal basal ganglia and thalami. Normal brainstem. Normal cerebellum. There is decreased attenuation present within the left occipital lobe consistent with old infarct. There is no intracranial hemorrhage. There is mild atherosclerotic calcification of the intracranial arteries. There is small mucous retention cysts within the maxillary sinuses. There is also mucosal thickening in the ethmoid sinuses. CT/Brain/Head without Contrast IMPRESSION: 1. Chronic involutional changes of the brain. 2. No CT evidence for acute intracranial hemorrhage. Electronically Signed: Lisa Comer MD at 7:22 [facility] ,
--- NOTE | 2022-09-07 06:40 | CT_ITS ---
STUDY: CT CERVICAL SPINE WITHOUT CONTRAST REASON FOR EXAM: Male, 86 years old patient with neck injury. RADIATION DOSAGE (If Supplied By Facility): CTDIvol = ( 16.60 ) mGy, DLP = ( 376.30 ) mGycm TECHNIQUE: High resolution transaxial imaging was performed without contrast material. Sagittal and coronal images were reconstructed. Individualized dose optimization techniques were used for this CT. COMPARISON: CT of the cervical spine dated August 27, 2022. FINDINGS: Normal craniovertebral junction. There are degenerative changes of the anterior atlantoaxial articulation. Normal odontoid process. There is straightening of the normal cervical lordosis. Normal vertebral bodies and posterior osseous elements. C2-3: Normal endplates. Normal disc height and morphology. Normal central canal. There is moderate narrowing of the right neuroforamen. The left neuroforamen is widely patent. C3-4: There is narrowing of the disc space. There appears to be a disc bulge and osteophyte complex. There is severe left-sided neural foraminal narrowing of uncovertebral and hypertrophic facet arthropathy. There is moderate right-sided neural foraminal narrowing with uncovertebral and facet arthropathy. There is no central acquired canal stenosis. C4-5: There is a disc bulge and osteophyte complex. There is severe left-sided neural foraminal narrowing and moderate central canal narrowing with uncovertebral and facet arthropathy. There is no central acquired canal stenosis. C5-6: There is severe narrowing of the disc space. There is irregularity of the endplates suggesting small erosions in addition to eburnation of the endplates. There is moderate bilateral neural foraminal narrowing with uncovertebral joint hypertrophy. There is no central acquired canal stenosis. C6-7: There is narrowing of the disc space with endplate osteophytes. There is severe bilateral foraminal narrowing with uncovertebral joint hypertrophy. There is disc bulge and osteophyte complex with mild central canal stenosis. C7-T1: Normal endplates. Normal disc height and morphology. Normal central canal and intervertebral neuroforamina. There are bilateral pleural effusions. There is atherosclerotic calcification of the carotid bulbs. Paraspinal soft tissues are within normal limits. CT/Spine Cervical without Contras IMPRESSION: 1. No CT evidence of acute compression or displaced fracture. 2. Moderately severe multilevel degenerative changes of the cervical spine with neuroforaminal narrowing and central canal stenosis. 3. Bilateral pleural effusions. Electronically Signed: Lisa Comer MD at 7:32 EST ,
--- NOTE | 2022-09-07 06:40 | RAD_ITS ---
STUDY: X-RAY - THORACIC SPINE REASON FOR EXAM: Male, 86 years old patient with back pain. TECHNIQUE: AP and lateral view(s) of the thoracic spine were obtained. COMPARISON: None. FINDINGS: Normal kyphosis of the thoracic spine. There is no substantial scoliosis. There is multilevel endplate spondylosis of the thoracic vertebrae. There is multilevel disc space narrowing of the thoracic spine. There appears to be some ossification of the anterior longitudinal ligament. There appears to be a intracardiac valvular prosthesis. The soft tissue structures are unremarkable. RAD/Thoracic Spine 3 Views IMPRESSION: 1. No obvious acute compression fracture. 2. Multilevel degenerative changes of the thoracic spine. Electronically Signed: Lisa Comer MD at 7:41 EST ,
--- NOTE | 2022-09-07 06:40 | RAD_ITS ---
STUDY: X-RAY - RIGHT SHOULDER REASON FOR EXAM: Male, 86 years old patient with right-sided shoulder pain. TECHNIQUE: 2 view(s) of the shoulder. COMPARISON: None. FINDINGS: There is mild degenerative arthrosis of the glenohumeral articulation. Normal acromioclavicular joint. Normal acromion. There is demineralization of the humerus and visualized osseous structures. The soft tissue structures are unremarkable. There is no demonstrated fracture. There appear to be prominent bronchovascular markings in the right lung. RAD/Shoulder min 2 Views IMPRESSION: 1. Degenerative arthropathy without obvious fracture. 2. Pulmonary congestion. Electronically Signed: Lisa Comer MD at 7:44 EST ,
[2022-09-07] MEDS: Ondansetron ODT 4 MG Tablet PO (07:26)
[2022-09-07] MEDS: Morphine 4 MG/ML Syringe IM (07:30)
--- NOTE | 2022-09-07 08:27 | EX.ED.DYSGE1 ---
HPI History of Present Illness Chief Complaint: Fall Narrative Narrative: Patient is an 86-year-old male from the assisted with past medical history of hypertension hyperlipidemia chronic kidney disease and general weakness. He is not supposed to be up and walking on his own secondary to his weakness and risk for recurrent falls. He states that this morning he was up trying to go to the bathroom when he lost his balance and fell backward. He states he did strike his head and landed on his right side. He denies any loss of consciousness or blood thinner use. He states he was not on the ground for very long and that he was found by nursing staff. With concern for underlying trauma from the fall especially with signs of head injury he was sent to the hospital for evaluation. [facility] Medical History Abdominal aortic aneurysm (AAA) Abdominal aortic aneurysm without rupture Acute kidney injury Anasarca Atherosclerotic heart disease of [place] coronary artery without angina pectoris BPH (benign prostatic hyperplasia) C. difficile colitis CAD (coronary artery disease) Chronic kidney disease COVID Esophageal cancer Essential hypertension Gastric adenocarcinoma Generalized weakness Gout History of left heart catheterization (LHC) (~06/26/19) HTN (hypertension) Hyperlipidemia Hyperphosphatemia Kidney stones Macrocytic anemia Metabolic acidosis Murmur, cardiac Non-rheumatic aortic stenosis Old myocardial infarction Presence of stent in coronary artery (~09/05/02) Severe protein-calorie malnutrition Sleep apnea Home Medications omeprazole 40 mg capsule,delayed release 40 mg PO DAILY ACID REFLUX 06/30/16 [History Last Taken 07/21/22] tamsulosin 0.4 mg capsule 0.4 mg PO QHS PROSTATE 05/26/17 [History Last Taken 07/21/22] aspirin 81 mg tablet,delayed release 81 mg PO DAILY heart health 06/26/22 [History Last Taken 07/21/22] acetaminophen 325 mg tablet 325 - 650 mg PO Q6H PRN Pain 07/22/22 [History Last Taken Unknown] ascorbic acid (vitamin C) 500 mg tablet (Vitamin C) 500 mg PO BID SUPPLEMENT 07/22/22 [History Last Taken 07/21/22] cholecalciferol (vitamin D3) 50 mcg (2,000 unit) tablet (Vitamin D3) 50 mcg PO DAILY SUPPLEMENT 07/22/22 [History Last Taken 07/21/22] cyanocobalamin (vitamin B-12) 500 mcg tablet 500 mcg PO DAILY SUPPLEMENT 07/22/22 [History Last Taken 07/21/22] dextromethorphan-benzocaine 5 mg-7.5 mg lozenges 1 ralph PO Q2H PRN SORE THROAT/COUGH 07/22/22 [History Last Taken Unknown] ondansetron 4 mg disintegrating tablet 4 mg PO Q4H PRN NAUSEA/VOMITING 07/22/22 [History Last Taken Unknown] polysaccharide iron complex 150 mg iron capsule (iFerex 150) 150 mg PO DAILY SSUPPLEMENT 07/22/22 [History Last Taken 07/21/22] zinc sulfate 50 mg zinc (220 mg) tablet 50 mg PO DAILY SUPPLEMENT 07/22/22 [History Last Taken 07/21/22] vancomycin 25 mg/mL oral solution (Firvanq) 125 mg (5 mL) PO .as directed #150 mL 08/02/22 [Rx Last Taken Unknown] arginine 7 gram-glutam 7 gram-CaHMB 1.5 [id number]-rzkqw-cy-min oral pwd pkt (Juventino (with collagen)) 1 packet PO BIDCM #0 ea 08/04/22 [Rx Last Taken Unknown] menthol 0.44 %-zinc oxide 20.6 % topical ointment (Calmoseptine) 1 applic topical BID #0 grams 08/04/22 [Rx Last Taken Unknown] sodium bicarbonate 650 mg tablet 650 mg PO TID #0 tabs 08/04/22 [Rx Last Taken Unknown] Allergy/AdvReac Type Severity Reaction Status Date / Time adhesive Allergy burn-like Verified 09/07/22 05:44 cortisone [Cortisone] Allergy Rash Verified 09/07/22 05:44 simvastatin AdvReac joint/muscle Verified 09/07/22 05:44 aches Family History Father Congestive heart failure Mother Colon cancer Surgical History H/O right inguinal hernia repair History of cholecystectomy History of cholecystectomy History of gastrectomy (~07/2014) Presence of coronary angioplasty implant and graft (~09/05/02) S/P TAVR (transcatheter aortic valve replacement) (~12/27/19) Social History household members: spouse Smoking Status: Former smoker how long ago did patient quit smoking: Quit ~20 yrs prior, smoked since late 20s until quit, pipe specifically. alcohol intake: never substance use type: does not use ROS ROS ED Constitutional Constitutional ED: Denies chills or fever(s) Eyes Eyes: Denies change in vision ENT ENT ED: Denies sore throat Cardiovascular Cardiovascular: Denies chest pain Respiratory/Chest Respiratory/Chest: Denies cough or dyspnea Gastrointestinal Gastrointestinal: Denies abdominal pain, diarrhea, nausea or vomiting Genitourinary Genitourinary ED: Denies dysuria Musculoskeletal Musculoskeletal: Reports arthralgias, back pain and neck pain Integumentary Reports Abrasions Neurologic Neurologic: Reports headache(s) Hematologic/Lymphatic Hematologic/Lymphatic: Denies easy bleeding or easy bruising EXAM Physical Exam Const Vital Signs: 09/07/22 05:39 09/07/22 06:40 Temperature 96.9 F L Temperature Source Temporal Pulse Rate 76 Respiratory Rate 18 Respiratory Effort Normal Respiratory Depth Normal Respiratory Pattern Normal Blood Pressure 108/79 Blood Pressure Mean 88 Pulse Ox 97 Oxygen Delivery Method Room Air Room Air Positive well nourished and well developed General Appearance ED: well developed HEENT HEENT Narrative: Patient has a superficial abrasion across the occipital portion of the scalp without signs of depressed or basilar skull fracture Eyes PERRL and EOMs intact bilaterally Neck Neck Narrative: No bony deformity or step-off of the cervical spine but patient does have midline pain with palpation Chest Wall palpation of chest normal Chest Narrative: No bony deformity or crepitance Resp normal respiratory effort and clear to auscultation bilaterally Cardio regular rate and regular rhythm GI normal to inspection, nondistended, normoactive bowel sounds, non-tender, non-distended and no masses GI Narrative: No voluntary guarding or rigidity no pulsatile mass or fluid wave Auscultation: normoactive bowel sounds Palpation: soft Back/Spine Back/Spine Narrative: No bony deformity or step-off of the thoracic or lumbar spine but there is upper thoracic and upper lumbar midline pain with palpation Extremity Extremity Narrative: Pelvis is stable there is no shortening or external rotation of either lower extremity. Patient has a superficial skin tear across the olecranon surface of the right elbow. There is mild soft tissue swelling and bruising consistent with the fall. However there is no obvious bony deformity or joint effusion Patient also has a superficial abrasion and ecchymosis across anterior aspect of the right shoulder also consistent with fall. No sulcus sign. No bony deformity or joint effusion. Active range of motion of the right shoulder and right elbow is slightly decreased secondary to pain. Neuro oriented x3 and CN's II-XII intact bilaterally Sensorium / Orientation: alert Psych mental status grossly normal Skin Skin Narrative: Soft tissue changes to the head right elbow and right shoulder as documented above MDM MDM MDM Narrative Medical decision making narrative: Patient presented to the ER with stable vitals and was awake and alert and at his baseline mental status. He reported a mechanical fall and secondary to this I felt no need for cardiac or syncope work-up. Based on the patient's advanced age and medical comorbidities as well as the fact he does show signs of head injury to perform CTs of his head and cervical spine with x-rays of his thoracic and lumbar spine as well as pelvis shoulder and elbow. All images revealed no signs of acute trauma. Also the areas of skin injury are abrasions and skin tear so there is no need for suture. At this time as underlying differential of skull fracture or traumatic subdural or epidural hematoma as well as joint dislocation or bone fracture has been ruled out the patient is otherwise safe to return to the assisted and treat his wound symptomatically. Radiography Diagnostic Testing: Clinical Impression(s) from Imaging Studies Brain CT 09/07/22 06:40 IMPRESSION: 1. Chronic involutional changes of the brain. 2. No CT evidence for acute intracranial hemorrhage. Electronically Signed: Lisa Comer MD at 7:22 EST , Cervical Spine CT 09/07/22 06:40 IMPRESSION: 1. No CT evidence of acute compression or displaced fracture. 2. Moderately severe multilevel degenerative changes of the cervical spine with neuroforaminal narrowing and central canal stenosis. 3. Bilateral pleural effusions. Electronically Signed: Lisa Comer MD at 7:32 EST , Elbow X-Ray 09/07/22 06:40 IMPRESSION: Degenerative arthropathy and soft tissue swelling. Electronically Signed: Lisa Comer MD at 7:34 EST , Lumbar Spine X-Ray 09/07/22 06:40 IMPRESSION: Degenerative changes of the spine, as detailed above. Electronically Signed: Lisa Comer MD at 7:38 EST , Shoulder X-Ray 09/07/22 06:40 IMPRESSION: 1. Degenerative arthropathy without obvious fracture. 2. Pulmonary congestion. Electronically Signed: Lisa Comer MD at 7:44 EST Reading Location ID and State: [id number] / [place] , Service support , Thoracic Spine X-Ray 09/07/22 06:40 IMPRESSION: 1. No obvious acute compression fracture. 2. Multilevel degenerative changes of the thoracic spine. Electronically Signed: Lisa Comer MD at 7:41 EST , X-ray of the right elbow as interpreted by the emergency medicine physician reveals no acute fracture or dislocation X-ray of the right shoulder as interpreted by the emergency medicine physician reveals degenerative changes without acute fracture or dislocation or joint effusion X-ray of the thoracic spine as interpreted by the emergency medicine physician reveals no acute fracture or spondylolisthesis X-ray of the lumbar spine as interpreted by the emergency medicine physician reveals no acute fracture or spondylolisthesis Discharge Plan Triage Chief Complaint: Fall ED Provider: Victoriano Henry Dx/Rx/DC Orders Clinical Impression: Closed head injury, Generalized weakness, Contusion of multiple sites, Skin tear Instructions: ED Head Injury (Adult), ED Skin Avulsion Prescriptions: No Action omeprazole 40 MG capsule 40 mg PO DAILY tamsulosin 0.4 MG capsule 0.4 mg PO QHS aspirin 81 mg tablet,delayed release (DR/EC) 81 mg PO DAILY acetaminophen 325 mg Tablet 325 - 650 mg PO Q6H PRN (Reason: Pain) polysaccharide iron complex [iFerex 150] 150 mg iron capsule 150 mg PO DAILY zinc sulfate 50 mg zinc (220 mg) Tablet 50 mg PO DAILY cyanocobalamin (vitamin B-12) 500 mcg tablet 500 mcg PO DAILY ascorbic acid (vitamin C) [Vitamin C] 500 mg Tablet 500 mg PO BID ondansetron 4 mg Tablet,Disintegrating 4 mg PO Q4H PRN (Reason: NAUSEA/VOMITING) dextromethorphan-benzocaine 5-7.5 mg Lozenge 1 ralph PO Q2H PRN (Reason: SORE THROAT/COUGH) cholecalciferol (vitamin D3) [Vitamin D3] 50 mcg (2,000 unit) Tablet 50 mcg PO DAILY Firvanq 25 mg/mL Recon Soln 125 mg PO .as directed Qty: 150 0RF Rx Instructions: 125mg twice daily for one week 125mg once daily for one week 125mg every other day for 2 weeks sodium bicarbonate 650 mg Tablet 650 mg PO TID Qty: 0 0RF menthol-zinc oxide [Calmoseptine] 0.44-20.6 % Ointment 1 applic topical BID Qty: 0 0RF Protocol: *Topical Application Instructions APPLICATION INSTRUCTIONS: buttocks Juventino (with collagen) 7-7-1.5 gram Powder In Packet 1 packet PO BIDCM Qty: 0 0RF Primary Care Provider: Lex Gold Referrals: Lex Gold MD [Primary Care Provider] - Activity Restrictions/Additional Instructions: Your work-up today showed no signs of acute trauma such as skull fracture or brain bleed broken neck or broken bones. Please continue all of your medication as previously directed and return to the ER should you have any further concerns. Disposition Disposition: Home, Self Care Discharge Date/Time: 09/07/22 10:30
[2022-09-07 09:45] VITALS: RESP 16
== END 2022-09-07 10:30 | disposition home or self-care (01) ==
PROVIDERS: Emergency Provider Emergency Medicine; PCP Internal Medicine; Visit Provider Emergency Medicine
DX: S09.90XA Unspecified injury of head, initial encounter (principal); S51.011A Laceration without foreign body of right elbow, initial encounter; R53.1 Weakness; I25.10 Atherosclerotic heart disease of native coronary artery without angina pectoris; N18.9 Chronic kidney disease, unspecified; I25.2 Old myocardial infarction; G47.30 Sleep apnea, unspecified; Z95.5 Presence of coronary angioplasty implant and graft; Z86.16 Personal history of COVID-19; W19.XXXA Unspecified fall, initial encounter; Z87.891 Personal history of nicotine dependence
CPT/HCPCS: 70450; 72072; 72100; 72125; 73030; 73080; 96372; 99284

== ENCOUNTER 2022-09-13 15:05 | Inpatient (IN) | payer MEDICARE, SELFPAY ==
[2022-09-13] VITALS (11 sets, daily range): BP systolic 83–110; BP diastolic 47–70; PULSE 65–84; RESP 16–26; TEMP 35.7–36.8; O2SAT 84–96; BMI 21.1; BMI 22.2
--- NOTE | 2022-09-13 16:20 | EKG12_ITS ---
Test Reason : Blood Pressure : / mmHG Vent. Rate : 072 BPM Atrial Rate : 072 BPM P-R Int : 170 ms QRS Dur : 150 ms QT Int : 442 ms P-R-T Axes : 082 021 043 degrees QTc Int : 483 ms Normal sinus rhythm Right bundle branch block Abnormal ECG Confirmed by NATALY ROLLE, RANDA ([id number]), clinical editor HANY SALAZAR ([id number]) on 09/14/2022 2:03:42 PM Referred By: Confirmed By:RANDA INGRAM MD
--- NOTE | 2022-09-13 16:23 | EDS_ITS ---
HPI History of Present Illness Chief Complaint: Dizziness Narrative Narrative: 86-year-old male presenting with concern for dehydration. Apparently he was seen not too long ago in the emergency room after he had a mechanical fall and hit his head. There has been no return of falls however the patient has had pretty persistent nausea and vomiting. Family states that he was giving something for nausea which is not working. Patient states that he was ordered something for vertigo which he has not had a problem with in the past until he hit his head. Patient and family reported that they had 1 pill given to him before he left and he vomited this up. Patient is not had a fever at home. He has decreased p.o. intake. He is developed a wet cough per his family. He is presenting with generalized weakness and her family is concerned for his dehydration. Family also expresses concern over lower extremity edema. His daughter noted this this morning while he was at the facility and Maximino wrap to them for him. [facility] Medical History Abdominal aortic aneurysm (AAA) Abdominal aortic aneurysm without rupture Acute kidney injury Anasarca Atherosclerotic heart disease of [place] coronary artery without angina pectoris BPH (benign prostatic hyperplasia) C. difficile colitis CAD (coronary artery disease) Chronic kidney disease COVID Esophageal cancer Essential hypertension Gastric adenocarcinoma Generalized weakness Gout History of left heart catheterization (LHC) (~06/26/19) HTN (hypertension) Hyperlipidemia Hyperphosphatemia Kidney stones Macrocytic anemia Metabolic acidosis Murmur, cardiac Non-rheumatic aortic stenosis Old myocardial infarction Presence of stent in coronary artery (~09/05/02) Severe protein-calorie malnutrition Sleep apnea Home Medications omeprazole 40 mg capsule,delayed release 40 mg PO DAILY ACID REFLUX 06/30/16 [History Last Taken 07/21/22] tamsulosin 0.4 mg capsule 0.4 mg PO QHS PROSTATE 05/26/17 [History Last Taken 07/21/22] aspirin 81 mg tablet,delayed release 81 mg PO DAILY heart health 06/26/22 [History Last Taken 07/21/22] acetaminophen 325 mg tablet 325 - 650 mg PO Q6H PRN Pain 07/22/22 [History Last Taken Unknown] ascorbic acid (vitamin C) 500 mg tablet (Vitamin C) 500 mg PO BID SUPPLEMENT 07/22/22 [History Last Taken 07/21/22] cholecalciferol (vitamin D3) 50 mcg (2,000 unit) tablet (Vitamin D3) 50 mcg PO DAILY SUPPLEMENT 07/22/22 [History Last Taken 07/21/22] cyanocobalamin (vitamin B-12) 500 mcg tablet 500 mcg PO DAILY SUPPLEMENT 07/22/22 [History Last Taken 07/21/22] dextromethorphan-benzocaine 5 mg-7.5 mg lozenges 1 ralph PO Q2H PRN SORE THROAT/COUGH 07/22/22 [History Last Taken Unknown] ondansetron 4 mg disintegrating tablet 4 mg PO Q4H PRN NAUSEA/VOMITING 07/22/22 [History Last Taken Unknown] polysaccharide iron complex 150 mg iron capsule (iFerex 150) 150 mg PO DAILY SSUPPLEMENT 07/22/22 [History Last Taken 07/21/22] zinc sulfate 50 mg zinc (220 mg) tablet 50 mg PO DAILY SUPPLEMENT 07/22/22 [History Last Taken 07/21/22] vancomycin 25 mg/mL oral solution (Firvanq) 125 mg (5 mL) PO .as directed #150 mL 08/02/22 [Rx Last Taken Unknown] arginine 7 gram-glutam 7 gram-CaHMB 1.5 nzyo-atnew-ji-min oral pwd pkt (Juventino (with collagen)) 1 packet PO BIDCM #0 ea 08/04/22 [Rx Last Taken Unknown] menthol 0.44 %-zinc oxide 20.6 % topical ointment (Calmoseptine) 1 applic topical BID #0 grams 08/04/22 [Rx Last Taken Unknown] sodium bicarbonate 650 mg tablet 650 mg PO TID #0 tabs 08/04/22 [Rx Last Taken Unknown] Allergy/AdvReac Type Severity Reaction Status Date / Time adhesive Allergy burn-like Verified 09/13/22 15:09 cortisone [Cortisone] Allergy Rash Verified 09/13/22 15:09 simvastatin AdvReac joint/muscle Verified 09/13/22 15:09 aches Family History Father Congestive heart failure Mother Colon cancer Surgical History H/O right inguinal hernia repair History of cholecystectomy History of cholecystectomy History of gastrectomy (~07/2014) Presence of coronary angioplasty implant and graft (~09/05/02) S/P TAVR (transcatheter aortic valve replacement) (~12/27/19) Social History household members: spouse Smoking Status: Former smoker how long ago did patient quit smoking: Quit ~20 yrs prior, smoked since late 20s until quit, pipe specifically. alcohol intake: never substance use type: does not use ROS ROS ED Review of Systems ROS Unobtainable: Denies due to encephalopathy Constitutional Constitutional ED: Denies sweats or weight loss Eyes Eyes: Denies blurry vision or change in vision ENT ENT ED: Denies ear pain or rhinorrhea Cardiovascular Cardiovascular: Denies chest pain Respiratory/Chest Respiratory/Chest: Denies cough or dyspnea Gastrointestinal Gastrointestinal: Reports nausea and vomiting Genitourinary Genitourinary ED: Denies dysuria or hematuria Musculoskeletal Musculoskeletal: Denies arthralgias or back pain Integumentary Denies abscess Neurologic Neurologic: Reports headache(s) Psychiatric Psychiatric: Denies anxiety or depression EXAM Physical Exam Const Vital Signs: 09/13/22 15:06 09/13/22 16:09 09/13/22 17:33 Temperature 97.5 F L Temperature Source Temporal Pulse Rate 65 68 Respiratory Rate 16 18 Blood Pressure 102/70 91/63 Blood Pressure Mean 80 72 Pulse Ox 96 95 84 Oxygen Delivery Method Room Air Room Air Room Air Oxygen Flow Rate (L/min) 09/13/22 17:34 09/13/22 19:00 Temperature Temperature Source Pulse Rate 80 Respiratory Rate 20 H Blood Pressure 110/59 L Blood Pressure Mean 76 Pulse Ox 91 93 Oxygen Delivery Method Nasal Cannula Nasal Cannula Oxygen Flow Rate (L/min) 4 4 Positive well nourished General Appearance ED: NAD; Negative for pallor HEENT Reports moist mucous membranes Neck no lymphadenopathy Chest Wall Negative for inspection of chest normal or palpation of chest normal GI normal to inspection, nondistended, normoactive bowel sounds Back/Spine no CVA tenderness Psych mental status grossly normal Skin no rashes or lesions noted and No no wounds General Skin Exam: Negative for jaundice or pallor MDM MDM MDM Narrative Medical decision making narrative: 86-year-old male presenting with his family out of concern for vomiting. Patient has had recurrent episodes of vomiting since he hit his head recently. They are concerned that he is also developed a cough. He is not had fever. He has had some generalized weakness. There is no report of a new fall or head injury. The patient is however a poor informant. EKG was obtained to assess for dysrhythmia and my interpretation this is a normal sinus rhythm with a ventricular rate of 72 bpm with right bundle branch block pattern. CBC was obtained for WBC, platelets, differential. Shows a blood cell count is normal at 8.2. Hemoglobin is 8 today. This is near the patient's baseline. CMP was obtained to assess renal function, liver function, electrolytes, anion gap. Creatinine is elevated above baseline at 3.13 today. Glucose is 89. Chloride is significantly elevated at 131 and sodium significant elevated at 156 but these are both near the patient's baseline. Patient was medicated with Zofran 4 mg IV and did not have return of his vomiting. He did drop his O2 sats to 86% on room air and has been stable on 4 L here. I did obtain a chest x-ray due to hypoxia and this is concerning for perihilar infiltrates versus edema On my interpretation CT of the brain was negative for acute findings. I discussed the findings with the hospitalist and KUB was ordered and is pending. Rapid COVID and influenza are pending. Impression: 1. Nausea/vomiting 2. Hypernatremia 3. Hyperchloremia 4. Acute on chronic kidney disease Lab Data Attestation: I reviewed the patient's lab results. Labs: Laboratory Results - last 24 hr 09/13/22 09/13/22 09/13/22 16:51 16:51 16:51 WBC 8.2 RBC 2.44 L Hgb 8.0 L Hct 26.3 L MCV 107.8 H MCH 32.8 H MCHC 30.4 L RDW Std Deviation 75.6 H RDW Coeff of Rain 19.1 H Plt Count 62 L MPV 12.7 H Immature Gran % (Auto) 2.400 H Neut % (Auto) 89.7 H Lymph % (Auto) 5.8 L [place] % (Auto) 1.9 Eos % (Auto) 0.1 Baso % (Auto) 0.1 Absolute Neuts (auto) 7.4 Absolute Lymphs (auto) 0.48 L Nucleated RBC % 0.6 Differential Comment SCANNED Platelet Estimate MKD DEC Hypochromasia 1+ Anisocytosis 2+ Microcytosis 1+ Macrocytosis 1+ Sodium 156 H Potassium 4.2 Chloride 131 H* Carbon Dioxide 16.0 L Anion Gap 9 BUN 69 H Creatinine 3.13 H Estim Creat Clear Calc 18.03 Est GFR (MDRD) Af Amer 25 L Est GFR (MDRD) Non-Af 20 L BUN/Creatinine Ratio 22.0 H Glucose 89 Calcium 7.7 L Total Bilirubin 0.40 AST 25 ALT 24 Alkaline Phosphatase 186 H Troponin I High Sens 15 B-Natriuretic Peptide 319.4 H Total Protein 5.3 L Albumin 1.5 L Globulin 3.8 Albumin/Globulin Ratio 0.4 L Urine Color Urine Clarity Urine pH Ur Specific Theodore Urine Protein Urine Glucose (UA) Urine Ketones Urine Occult Blood Urine Nitrite Urine Bilirubin Urine Urobilinogen Ur Leukocyte Esterase Urine RBC Urine WBC Ur Squamous Epith Cells Urine Bacteria Urine Mucus 09/13/22 18:16 WBC RBC Hgb Hct MCV MCH MCHC RDW Std Deviation RDW Coeff of Rain Plt Count MPV Immature Gran % (Auto) Neut % (Auto) Lymph % (Auto) [place] % (Auto) Eos % (Auto) Baso % (Auto) Absolute Neuts (auto) Absolute Lymphs (auto) Nucleated RBC % Differential Comment Platelet Estimate Hypochromasia Anisocytosis Microcytosis Macrocytosis Sodium Potassium Chloride Carbon Dioxide Anion Gap BUN Creatinine Estim Creat Clear Calc Est GFR (MDRD) Af Amer Est GFR (MDRD) Non-Af BUN/Creatinine Ratio Glucose Calcium Total Bilirubin AST ALT Alkaline Phosphatase Troponin I High Sens B-Natriuretic Peptide Total Protein Albumin Globulin Albumin/Globulin Ratio Urine Color Yellow Urine Clarity Clear Urine pH 5.0 Ur Specific Theodore 1.020 Urine Protein 100 H Urine Glucose (UA) Normal Urine Ketones Negative Urine Occult Blood 250 H Urine Nitrite Negative Urine Bilirubin Negative Urine Urobilinogen Normal Ur Leukocyte Esterase 25 H Urine RBC 25-50 SEEN Urine WBC 0-5 SEEN Ur Squamous Epith Cells 0 SEEN Urine Bacteria 1+ Urine Mucus 0 SEEN Radiography Diagnostic Testing: Clinical Impression(s) from Imaging Studies Brain CT 09/13/22 16:24 IMPRESSION: Atrophy and periventricular white matter ischemic change. Old left occipital lobe infarct. No acute bleed. If concern for acute infarct MRI recommended. Electronically Signed: Jordan Heredia MD at 17:24 EST , Chest X-Ray 09/13/22 18:05 IMPRESSION: Bilateral perihilar infiltrates or pulmonary edema. Electronically Signed: Jordan Heredia MD at 18:23 EST Reading Location ID and State: [address] [place] [address] , Service support , Discharge Plan Triage Chief Complaint: Dizziness Other Complaint: Nausea/Vomiting ED Provider: Durga Sage Dx/Rx/DC Orders Primary Care Provider: Lex Gold
--- NOTE | 2022-09-13 16:24 | CT_ITS ---
STUDY: CT BRAIN WITHOUT CONTRAST REASON FOR EXAM: Male, 86 years old. confusion RADIATION DOSAGE (If Supplied By Facility): CTDIvol = ( 44.99 ) mGy, DLP = ( 846.73 ) mGycm TECHNIQUE: Transaxial CT imaging of the brain was performed without administration of intravenous contrast material. Individualized dose optimization techniques were used for this CT. COMPARISON: September 07, 2022. FINDINGS: Normal soft tissue structures. Normal calvarium. Calcific plaquing of the cavernous carotid Mild atrophy and periventricular white matter ischemic changes.. Small old bilateral subdural effusions or cystic hygromas. Normal basal ganglia and thalami. Normal brainstem. Normal cerebellum. Old left occipital lobe infarct Partial empty sella deformity likely of no significance There is no intracranial hemorrhage. There are no findings of an acute ischemic infarction. Postsurgical changes of the orbits Small mucous retention cyst in the left maxillary sinus.. CT/Brain/Head without Contrast IMPRESSION: Atrophy and periventricular white matter ischemic change. Old left occipital lobe infarct. No acute bleed. If concern for acute infarct MRI recommended. Electronically Signed: Jordan Heredia MD at 17:24 EST Reading Location ID and State: [facility] / [place] , Service support ,
[2022-09-13] MEDS: 0.9% Normal Saline 1,000 ML 1000 ML IV (16:37)
[2022-09-13] MEDS: Ondansetron 4 MG/2 ML Vial IV (16:37)
[2022-09-13 17:07] LABS: Absolute Lymphocyte Count 0.48 X10^3/uL (0.83-4.51); Absolute Neutrophil Count 7.4 X10^3/uL (2.0-7.7); Basophil# 0.01 X10^3/uL; Basophil% 0.1 % (0-1); Eosinophil# 0.01 X10^3/uL; Eosinophils% 0.1 % (0-5); Hematocrit 26.3 % (40-54); Lymphocyte # 0.48 X10^3/ul (0.83-4.51); Lymphocyte % 5.8 % (19-41); Mean Corp Hgb Conc 30.4 g/dL (32-36); Mean Corpuscular Hgb 32.8 pg (27.0-32.0); Mean Corpuscular Volume 107.8 fL (80-94); Mean Platelet Vol. 12.7 fl (6.2-12.0); Monocyte# 0.16 X10^3/uL; Monocyte% 1.9 % (0-10); NRBC Flagged by Analyzer 0.6 % (0-5); Neutrophil # 7.38 X10^3/uL (2.7-7.7); Neutrophil % 89.7 % (47-70); POSITIVE COUNT YES; POSITIVE DIFFERENTIAL YES; POSITIVE MORPHOLOGY YES; Platelet Count 62 K/mm3 (150-450); RBC Distribution Width CV 19.1 % (11.6-14.6); RBC Distribution Width SD 75.6 fl (35.1-43.9); Red Blood Count 2.44 M/mm3 (4.6-6.2); White Blood Count 8.2 K/mm3 (4.4-11.0)
[2022-09-13 17:15] LABS: Differential Indicated SCAN CRITERIA MET
[2022-09-13 17:36] LABS: Differential Comment SCANNED; Platelet Estimate MKD DEC (ADEQ)
[2022-09-13 17:37] LABS: Anisocytosis 2+; Hypochromasia 1+; Macrocytosis 1+; Microcytosis 1+
--- NOTE | 2022-09-13 17:37 | EKG12_ITS ---
Test Reason : REPEAT Blood Pressure : / mmHG Vent. Rate : 074 BPM Atrial Rate : 074 BPM P-R Int : 208 ms QRS Dur : 146 ms QT Int : 450 ms P-R-T Axes : 068 010 033 degrees QTc Int : 499 ms Sinus rhythm with Fusion complexes and Premature atrial complexes Right bundle branch block Abnormal ECG Confirmed by NATALY ROLLE, RADNA ([id number]), rewrite editor MARIA EUGENIA TAO ([id number]) on 09/15/2022 10:42:12 AM Referred By: Confirmed By:RANDA INGRAM MD
[2022-09-13 17:45] LABS: ALB/GLOB Ratio 0.4 RATIO (0.9-2.4); AST(SGOT) 25 U/L (15-37); Alanine Aminotransfer ALT/SGPT 24 U/L (16-61); Albumin, Serum 1.5 g/dL (3.2-5.0); Alkaline Phosphatase 186 U/L (45-117); Anion Gap 9 (5-15); BUN 69 mg/dL (7-18); Calcium,Total 7.7 mg/dL (8.5-10.1); Chloride 131 mmol/L (98-107); Creatinine, Serum 3.13 mg/dL (0.70-1.30); EST Glomerular Filtration Rate 20 mL/min (>60); Est Glom Filt Rate - Afr Amer 25 mL/min (>60); Estimated Creatinine Clearance 18.03 ml/min; Globulin 3.8 g/dL (2.2-4.2); Glucose 89 mg/dL (74-106); Potassium 4.2 mmol/L (3.5-5.1); Protein, Total 5.3 g/dL (6.4-8.2); Sodium Level 156 mmol/L (136-145); Troponin-I HS 15 pg/mL (3.0-78.0)
--- NOTE | 2022-09-13 18:05 | RAD_ITS ---
STUDY: X-RAY CHEST REASON FOR EXAM: Male, 86 years old. cough TECHNIQUE: AP portable COMPARISON: August 03, 2022 FINDINGS: Diffuse bilateral perihilar central infiltrates or pulmonary edema. There is no demonstrated pleural abnormality. Normal size heart. Normal mediastinum and gui. Normal visualized pulmonary arteries. Normal visualized aortic arch and descending thoracic aorta. Aortic valve prosthesis is noted Normal visualized thoracic spine. Normal visualized ribs, clavicles, and shoulders. There is no demonstrated abnormality of the visualized soft tissue structures of the upper abdomen. RAD/Chest 1 View (Portable) IMPRESSION: Bilateral perihilar infiltrates or pulmonary edema. Electronically Signed: Jordan Heredia MD at 18:23 EST ,
[2022-09-13 18:23] LABS: Mucous, Urine 0 SEEN /hpf (<or=2+); Squamous Epithelial Cells - UA 0 SEEN /hpf (0-5)
[2022-09-13 18:31] LABS: Color, Urine Yellow (Yellow); Glucose, Dipstick Normal (Normal); Ketone-Dipstick Negative (Negative); Leukocyte Esterase-Dipstick 25 /ul (Negative); Nitrite-Dipstick Negative (Negative); Occult Blood-Urine 250 /ul (Negative); Protein-Dipstick 100 mg/dl (Negative); Urine Bilirubin Dipstick Negative (Negative); Urine Clarity Clear (Clear); Urine Urobilinogen Normal (Normal)
[2022-09-13 19:00] LABS: Red Blood Cells-Urine 25-50 SEEN /hpf (0-5); White Blood Cells 0-5 SEEN /hpf (0-5)
[2022-09-13 19:01] LABS: Bacteria 1+ /hpf (None Seen)
--- NOTE | 2022-09-13 19:33 | PCM.HP.STD ---
HPI - General General Date of Admission: 09/13/22 Date of Service: 09/13/22 Chief Complaint: Intractable nausea and vomiting - 5 days HPI Narrative SEEMA CHACON, is a 86 M who presents with the above. Patient has past medical history of CKD stage IV with chronic hypernateremia/hyperchloremia, nongap metabolic acidosis, recent history of recurrent C. difficile- recently completed oral vancomycin. Patient was last discharged from the hospital on 08/05/22. He was discharged to the [facility] [place]. Per history from his daughter at the bedside, patient was at the [facility] for 3 weeks and has since been at [facility]. In the last week of his stay in the [facility], patient has had recurrent falls- about 4 times. He has a residual bruise on the back of his head. He has been complaining of vertigo. 4 days ago, while he was having physical therapy, patient had severe vertigo. He has since been in a wheelchair. He admits to increasing weakness. About the same time, patient has been having intractable nausea and vomiting. He had an episode of vomiting in the ED. His family stated that he appears to also be drowning and has been coughing. No fevers or chills. No more diarrhea. His vitals in the ED on arrival was blood pressure 102/70, heart rate 65, respiratory 16, temperature 97.5 F, oxygen sat 96% initially on room air and later on became hypoxic saturating 84% and required 4-5 L of oxygen. WBC 8.2, hemoglobin 8.0, previous level was 8.8, platelet count is 62, down from 101, sodium 156, previous 154, K 4.2. Cl 131, 16.0, BUN 69, Cr 3.13, BNPep 319.4, Albumin 1.5. UA was clear, protein is 100, ketones negative, nitrite negative, leukocyte esterase negative CT of the brain showed atrophy with periventricular white matter ischemic changes. Old left occipital lobe infarct. No acute bleed. Admitting chest x-ray showed bilateral perihilar infiltrates or pulmonary edema. [facility] Medical History Abdominal aortic aneurysm (AAA) Abdominal aortic aneurysm without rupture Acute kidney injury Anasarca Atherosclerotic heart disease of [place] coronary artery without angina pectoris BPH (benign prostatic hyperplasia) C. difficile colitis CAD (coronary artery disease) Chronic kidney disease COVID Esophageal cancer Essential hypertension Gastric adenocarcinoma Generalized weakness Gout History of left heart catheterization (LHC) (~06/26/19) HTN (hypertension) Hyperlipidemia Hyperphosphatemia Kidney stones Macrocytic anemia Metabolic acidosis Murmur, cardiac Non-rheumatic aortic stenosis Old myocardial infarction Presence of stent in coronary artery (~09/05/02) Severe protein-calorie malnutrition Sleep apnea Home Medications omeprazole 40 mg capsule,delayed release 40 mg PO DAILY ACID REFLUX 06/30/16 [History Last Taken 07/21/22] tamsulosin 0.4 mg capsule 0.4 mg PO QHS PROSTATE 05/26/17 [History Last Taken 07/21/22] aspirin 81 mg tablet,delayed release 81 mg PO DAILY heart health 06/26/22 [History Last Taken 07/21/22] acetaminophen 325 mg tablet 325 - 650 mg PO Q6H PRN Pain 07/22/22 [History Last Taken Unknown] ascorbic acid (vitamin C) 500 mg tablet (Vitamin C) 500 mg PO BID SUPPLEMENT 07/22/22 [History Last Taken 07/21/22] cholecalciferol (vitamin D3) 50 mcg (2,000 unit) tablet (Vitamin D3) 50 mcg PO DAILY SUPPLEMENT 07/22/22 [History Last Taken 07/21/22] cyanocobalamin (vitamin B-12) 500 mcg tablet 500 mcg PO DAILY SUPPLEMENT 07/22/22 [History Last Taken 07/21/22] dextromethorphan-benzocaine 5 mg-7.5 mg lozenges 1 ralph PO Q2H PRN SORE THROAT/COUGH 07/22/22 [History Last Taken Unknown] ondansetron 4 mg disintegrating tablet 4 mg PO Q4H PRN NAUSEA/VOMITING 07/22/22 [History Last Taken Unknown] polysaccharide iron complex 150 mg iron capsule (iFerex 150) 150 mg PO DAILY SSUPPLEMENT 07/22/22 [History Last Taken 07/21/22] zinc sulfate 50 mg zinc (220 mg) tablet 50 mg PO DAILY SUPPLEMENT 07/22/22 [History Last Taken 07/21/22] vancomycin 25 mg/mL oral solution (Firvanq) 125 mg (5 mL) PO .as directed #150 mL 08/02/22 [Rx Last Taken Unknown] arginine 7 gram-glutam 7 gram-CaHMB 1.5 [id number]-[id number]-min oral pwd pkt (Juventino (with collagen)) 1 packet PO BIDCM #0 ea 08/04/22 [Rx Last Taken Unknown] menthol 0.44 %-zinc oxide 20.6 % topical ointment (Calmoseptine) 1 applic topical BID #0 grams 08/04/22 [Rx Last Taken Unknown] sodium bicarbonate 650 mg tablet 650 mg PO TID #0 tabs 08/04/22 [Rx Last Taken Unknown] Allergy/AdvReac Type Severity Reaction Status Date / Time adhesive Allergy burn-like Verified 09/13/22 15:09 cortisone [Cortisone] Allergy Rash Verified 09/13/22 15:09 simvastatin AdvReac joint/muscle Verified 09/13/22 15:09 aches Family History Father Congestive heart failure Mother Colon cancer Surgical History H/O right inguinal hernia repair History of cholecystectomy History of cholecystectomy History of gastrectomy (~07/2014) Presence of coronary angioplasty implant and graft (~09/05/02) S/P TAVR (transcatheter aortic valve replacement) (~12/27/19) Social History household members: spouse Smoking Status: Former smoker how long ago did patient quit smoking: Quit ~20 yrs prior, smoked since late 20s until quit, pipe specifically. alcohol intake: never substance use type: does not use ROS ROS Narrative Constitutional: Reports: Malaise, Weakness, Fatigue. Denies: Anorexia, Chills, Fever, Night Sweats, Weight Change Eyes: Denies: Blurred vision, Cataracts, Conjunctivae Inflammation, Pain, Redness, Vision Change HEENT: Denies: Difficulty Hearing, Difficulty Swallowing, Head Aches, Hearing Changes, Sinus Congestion, Sinus Drainage Cardiovascular: Denies: Chest Pain, Orthopnea, Palpitations Respiratory: See HPI Gastrointestinal: See HPI Genitourinary: Denies: Dysuria Musculoskeletal: Denies: Joint Pain, Joint stiffness, Joint swelling, Joint Tenderness Skin: Denies: Rash, Wounds Neurological: Denies: Numbness, Tingling, Focal weakness Vital Signs Vital Signs Vital Signs: 09/13/22 15:06 09/13/22 16:09 09/13/22 17:33 Temperature 97.5 F L Temperature Source Temporal Pulse Rate 65 68 Respiratory Rate 16 18 Blood Pressure 102/70 91/63 Blood Pressure Mean 80 72 Pulse Ox 96 95 84 Oxygen Delivery Method Room Air Room Air Room Air Oxygen Flow Rate (L/min) 09/13/22 17:34 09/13/22 19:00 Temperature Temperature Source Pulse Rate 80 Respiratory Rate 20 H Blood Pressure 110/59 L Blood Pressure Mean 76 Pulse Ox 91 93 Oxygen Delivery Method Nasal Cannula Nasal Cannula Oxygen Flow Rate (L/min) 4 4 Weight Weight: 72.575 kg Body Mass Index (BMI) 21.1 Physical Exam Narrative Physical exam: General: Alert, Oriented x3, Cooperative, slightly hard of hearing, appears frail, on 4 L of oxygen HEENT: Old bruise at the occipital region, healing bruise over the left side of the face Oral: Moist Mucosa Neck: Supple Lungs: Diminished to auscultation especially at the lung bases, rhonchorous breath sounds Cardiovascular: HS I+II, regular, no murmurs Abdomen: Bowel Sounds Present, Soft, Non Tender Extremities: Bilateral pedal edema +2 Skin: No rashes, No breakdown Neurological: Cranial nerve II to XII grossly intact, right upper extremity weakness noted more than left. Rest of his lower extremities were weak but were 4/5. Psych/Mental Status: Appropriate Results Lab / Micro Data Result Diagrams: 09/13/22 16:51 09/13/22 16:51 Labs: Laboratory Results - last 24 hr 09/13/22 16:51: WBC 8.2, RBC 2.44 L, Hgb 8.0 L, Hct 26.3 L, MCV 107.8 H, MCH 32.8 H, MCHC 30.4 L, RDW Std Deviation 75.6 H, RDW Coeff of Rain 19.1 H, Plt Count 62 L, MPV 12.7 H, Immature Gran % (Auto) 2.400 H, Neut % (Auto) 89.7 H, Lymph % (Auto) 5.8 L, Potter % (Auto) 1.9, Eos % (Auto) 0.1, Baso % (Auto) 0.1, Absolute Neuts (auto) 7.4, Absolute Lymphs (auto) 0.48 L, Nucleated RBC % 0.6, Differential Comment SCANNED, Platelet Estimate MKD DEC, Hypochromasia 1+, Anisocytosis 2+, Microcytosis 1+, Macrocytosis 1+ 09/13/22 16:51: Sodium 156 H, Potassium 4.2, Chloride 131 H*, Carbon Dioxide 16.0 L, Anion Gap 9, BUN 69 H, Creatinine 3.13 H, Estim Creat Clear Calc 18.03, Est GFR (MDRD) Af Amer 25 L, Est GFR (MDRD) Non-Af 20 L, BUN/Creatinine Ratio 22.0 H, Glucose 89, Calcium 7.7 L, Total Bilirubin 0.40, AST 25, ALT 24, Alkaline Phosphatase 186 H, Troponin I High Sens 15, Total Protein 5.3 L, Albumin 1.5 L, Globulin 3.8, Albumin/Globulin Ratio 0.4 L 09/13/22 18:16: Urine Color Yellow, Urine Clarity Clear, Urine pH 5.0, Ur Specific [place] 1.020, Urine Protein 100 H, Urine Glucose (UA) Normal, Urine Ketones Negative, Urine Occult Blood 250 H, Urine Nitrite Negative, Urine Bilirubin Negative, Urine Urobilinogen Normal, Ur Leukocyte Esterase 25 H, Urine RBC 25-50 SEEN, Urine WBC 0-5 SEEN, Ur Squamous Epith Cells 0 SEEN, Urine Bacteria 1+, Urine Mucus 0 SEEN Radiology Impression Brain CT 09/13/22 16:24 IMPRESSION: Atrophy and periventricular white matter ischemic change. Old left occipital lobe infarct. No acute bleed. If concern for acute infarct MRI recommended. Electronically Signed: Jordan Heredia MD at 17:24 EST Reading Location ID and State: [facility] / [place] , Service support , Chest X-Ray 09/13/22 18:05 IMPRESSION: Bilateral perihilar infiltrates or pulmonary edema. Electronically Signed: Jordan Heredia MD at 18:23 EST , Assessment & Plan Assessment/Plan (1) Intractable nausea and vomiting: (2) Aspiration pneumonia: PLAN: Plan 1. Acute intractable nausea and vomiting with vertigo. Differential will be orthostatic hypotension, acute CVA Admit to PCU, stroke work-up/protocol with MRI brain, 2D echo, PT/OT/ST to evaluate and treat QTC is 499 -Zofran as needed 2. Acute hypoxia secondary to suspected aspiration pneumonia versus fluid overload Patient was hypoxic in the ED with saturation of 84%, improved on 4 to 5 L of oxygen Chest x-ray showed bilateral perihilar infiltrate/pulmonary edema Started on IV antibiotics, breathing treatments, Lasix x1 Continue to wean off oxygen for SPO2 more than 94% 3. Suspected aspiration pneumonia, likely secondary to generalized weakness/probable CVA Patient with previous history of esophageal cancer status post surgical intervention with partial gastrectomy Started on IV Unasyn, will continue same Speech therapy consult for swallowing evaluation 4. Bilateral leg swelling, pedal edema +2, likely related to suspected malnutrition Albumin is 1.5, patient with poor p.o. intake, recent recurrent acute admissions BNp 319.4, 2D echo in May 2022 showed EF of 65%, stage II diastolic dysfunction Continue with Maximino wraps to the legs, Trial of Lasix x1 5. CKD stage IV, admitting creatinine 3.13, previous creatinine of 2.86 Patient with previous nephrotic range proteinuria We will reconsult nephrology in this admission 6. Chronic hypernatremia likely related to dehydration, sodium is 156 We will continue on D5 water, trend BMP 7.Chronic anemia, hemoglobin appears to be at her baseline, 8.0 Previous recent iron studies have shown anemia of chronic disease Will trend hemoglobin 8. Chronic thrombocytopenia, platelet is 62, down from 101 Will trend labs 9. Frailty, progressive -patient has had recent admissions [id number] over the last 6 months Recommend palliative care, discussions of goals of care overall 10. DVT prophylaxis?SCDs Total time spent: 75 minutes of which more > 50% was spent in reviewing patient's chart, reviewing laboratory investigations, imaging, talking to patient and his daughter and taking history and physical examining him, Charges/Coding Addendum Addendum: I discussed and explained in details the various types of CODE STATUS-full code, DNR CCA, DNR CC. Patient chose to be DNR CCA and does not want aggressive cardiopulmonary resuscitation in the event of an arrest. His daughter Shelli Nelson is his power of corporate associate attorney for healthcare Time spent discussing CODE STATUS 18 minutes Visit Charges Inpatient E&M: 78547 Init Hosp L3 Procedures Hospitalists Procedures: 24391 Advncd Care Plan 30 Min
[2022-09-13 19:59] LABS: BNP,B-Type NATRIURETIC PEPTIDE 319.4 pg/mL (0-100)
--- NOTE | 2022-09-13 20:11 | ED.RN ---
Dr. Sage notified about drop in pt BP. No new orders given at this time.
--- NOTE | 2022-09-13 21:17 | EX.EMERGENCY ---
EMERGENCY DOCUMENTATION INITIATED: Date: 08/10/22 Time: 0900 emergency documentation in effect
--- NOTE | 2022-09-13 21:33 | ECHOD_ITS ---
Reason For Study: TIA/CVA Procedure This was a 2D Doppler, Color Flow transthoracic echocardiogram. Exam performed portable in ICU/CCU. Left Ventricle Normal LV size. Left ventricular systolic function is normal. The estimated ejection fraction is 55 %. Stage 3 diastolic dysfunction. No regional wall motion abnormalities noted. Right Ventricle Normal RV size. Normal systolic function. Atria Normal left atrium. Normal right atrium. Bubble contrast study negative for right to left interatrial shunt. Mitral Valve There is moderate mitral annular calcification. Mild-Moderate (1-2+) eccentric mitral valve insufficiency. Tricuspid Valve Normal tricuspid valve. Mild to moderate (1-2+) tricuspid valve insufficiency. Pulmonary artery systolic pressure is 30 mmHg. Aortic Valve Peak aortic valve gradient 20 mmHg. Mean aortic valve gradient 13 mmHg. Mild (1+) aortic valve insufficiency. Bioprosthetic aortic valve functioning normally. Pulmonic Valve The pulmonic valve is not well visualized. Great Vessels Normal aortic root. The pulmonary artery is normal size. Normal inferior vena cava. Pericardium/Pleural Trivial pericardial effusion. Moderate size left pleural effusion. Medication Performed a rapid injection of agitated mix of 9 cc saline and 1cc air to assess for atrial septal defect. MMode/2D Measurements & Calculations LVIDd: 4.5 cm IVSd: 0.81 cm LVOT diam: 2.0 cm LVIDs: 3.1 cm LVPWd: 1.0 cm RVDd: 3.3 cm FS: 29.8 % LVOT area: 3.2 cm2 Ao root diam: 2.4 cm LAV(MOD-bp): 53.2 ml LVAd ap4: 24.5 cm2 LAV(MOD-bp) Indexed: 26.7 ml/m2 LVLd ap4: 7.4 cm LAV(MOD-sp2): 47.2 ml EDV(MOD-sp4): 67.9 ml LAV(MOD-sp4): 53.5 ml EDV(sp4-el): 69.3 ml LVAs ap4: 14.0 cm2 LVLs ap4: 7.0 cm ESV(MOD-sp4): 23.7 ml ESV(sp4-el): 23.5 ml EF(MOD-sp4): 65.0 % EF(sp4-el): 66.1 % SV(MOD-sp4): 44.2 ml SV(sp4-el): 45.8 ml LA A4 area: 19.7 cm2 LA dimension(2D): 4.5 cm RA A4 area: 15.7 cm2 Time Measurements MV dec time: 0.35 sec Doppler Measurements & Calculations MV E max jose g: 97.6 cm/sec Lat Peak E' Jose G: 4.2 cm/sec Med Peak E' Jose G: 4.2 cm/sec MV A max jose g: 108.7 cm/sec E/E' lat: 23.1 E/E' med: 23.1 MV E/A: 0.90 MV V2 max: 117.4 cm/sec MV dec slope: 279.4 cm/sec2 Ao V2 max: 220.9 cm/sec MV max P.5 mmHg Ao max P.4 mmHg MV V2 mean: 83.9 cm/sec Ao V2 mean: 166.3 cm/sec MV mean P.1 mmHg Ao mean P.6 mmHg MV V2 VTI: 35.1 cm Ao V2 VTI: 54.0 cm MVA(VTI): 2.2 cm2 AV (velocity ratio): 0.44 ANGELIA(I,D): 1.4 cm2 ANGELIA(V,D): 1.5 cm2 LV V1 max: 101.5 cm/sec SV(LVOT): 76.6 ml PA V2 max: 77.0 cm/sec LV V1 max P.2 mmHg LV V1 mean P.1 mmHg LV V1 mean: 68.1 cm/sec LV V1 VTI: 23.7 cm TR max jose g: 248.1 cm/sec TR max P.6 mmHg ECHO/Echo Complete Interpretation Summary Normal LV size. Left ventricular systolic function is normal. The estimated ejection fraction is 55 %. Stage 3 diastolic dysfunction. Bubble contrast study negative for right to left interatrial shunt. Bioprosthetic aortic valve functioning normally. Ordering Physician: Melinda Suarez Referring Physician: Lex Gold Performed By: Rama Whatley, ABEBA, RVT
[2022-09-13] MEDS: Ipratropium/Albuterol Sulfate 3 ML AMPUL.NEB INHALATION (22:28)
[2022-09-14] VITALS (41 sets, daily range): BP systolic 62–138; BP diastolic 40–96; PULSE 52–94; RESP 12–34; TEMP 31.1–36.4; O2SAT 81–99
[2022-09-14] MEDS: 0.9% Saline Lock 10 ML Syringe IV ×4 (01:58→06:56)
[2022-09-14] MEDS: Hydrocortisone Sod Succinate 100 MG/2 ML Vial IV ×4 (01:58→17:25)
--- NOTE | 2022-09-14 03:17 | PCM.PN.BLA ---
Progress Note Patient with persistent hypotension on arrival to the PCU -systolic blood pressure between 70 and 80 Patient received a couple of boluses of fluid. Patient's oxygen requirements increased from 4 L/min to 9 L/min Discussed with the patient about transfer to ICU for central line, pressure support. He stated that he does not want central line. I updated and discussed patient's scenario with the daughter/POA, Shelli. She stated after some thought that she has decided to honor his wishes and not have a central line placed. Patient will be transferred to the ICU for pressure support through the peripheral line. I explained to Shelli the limitations of using the peripheral line. She inquired about patient's renal function and need for dialysis. Morning labs were yet to be done. She stated that patient would not want to be on dialysis. I therefore talked about hospice for patient. She would like to make that decision a couple of hours depending on how he does overall and also depending on what the outcome looks in terms of renal function
[2022-09-14 04:02] LABS: Absolute Lymphocyte Count 0.19 X10^3/uL (0.83-4.51); Absolute Neutrophil Count 2.8 X10^3/uL (2.0-7.7); Basophil# 0.01 X10^3/uL; Basophil% 0.3 % (0-1); Hematocrit 27.4 % (40-54); Hemoglobin 8.2 g/dL (13.0-16.5); Lymphocyte # 0.19 X10^3/ul (0.83-4.51); Lymphocyte % 6.1 % (19-41); Mean Corp Hgb Conc 29.9 g/dL (32-36); Mean Corpuscular Hgb 32.7 pg (27.0-32.0); Mean Corpuscular Volume 109.2 fL (80-94); Mean Platelet Vol. 12.5 fl (6.2-12.0); Monocyte# 0.06 X10^3/uL; Monocyte% 1.9 % (0-10); NRBC Flagged by Analyzer 3.5 % (0-5); Neutrophil # 2.79 X10^3/uL (2.7-7.7); Neutrophil % 90.1 % (47-70); POSITIVE COUNT YES; POSITIVE DIFFERENTIAL YES; POSITIVE MORPHOLOGY YES; Platelet Count 61 K/mm3 (150-450); RBC Distribution Width CV 19.3 % (11.6-14.6); RBC Distribution Width SD 77.3 fl (35.1-43.9); Red Blood Count 2.51 M/mm3 (4.6-6.2); White Blood Count 3.1 K/mm3 (4.4-11.0)
[2022-09-14 04:38] LABS: Differential Indicated SCAN CRITERIA MET
[2022-09-14 04:41] LABS: Anisocytosis 1+; Burr Cells RARE; Differential Comment SCANNED; Hypochromasia 2+; Macrocytosis 1+; Platelet Estimate MKD DEC (ADEQ)
[2022-09-14 04:54] LABS: ALB/GLOB Ratio 0.4 RATIO (0.9-2.4); AST(SGOT) 21 U/L (15-37); Alanine Aminotransfer ALT/SGPT 22 U/L (16-61); Albumin, Serum 1.3 g/dL (3.2-5.0); Alkaline Phosphatase 158 U/L (45-117); Anion Gap 11 (5-15); BUN 70 mg/dL (7-18); BUN/Creat Ratio 23.1 RATIO (10-20); Calcium,Total 7.4 mg/dL (8.5-10.1); Chloride 132 mmol/L (98-107); Cholesterol 59 mg/dL (200); Creatinine, Serum 3.03 mg/dL (0.70-1.30); EST Glomerular Filtration Rate 21 mL/min (>60); Est Glom Filt Rate - Afr Amer 25 mL/min (>60); Estimated Creatinine Clearance 19.66 ml/min; Globulin 3.4 g/dL (2.2-4.2); Glucose 70 mg/dL (74-106); High Density Lipoprotein 39 mg/dL; Potassium 4.2 mmol/L (3.5-5.1); Protein, Total 4.7 g/dL (6.4-8.2); Sodium Level 157 mmol/L (136-145); Triglycerides 38 mg/dL; Very Low Density Lipoprotein 8 mg/dL (5-40)
--- NOTE | 2022-09-14 04:56 | NURSING ---
Pts BP continouly low since admission, despite x3 500ml fluid bolus, pt lungs wet with crackles. Dr Suarez notified, called pts daughter to see how the family would like to proceed. Dr. Suarez explained all options to the family, stating that the patient stated he did not want a central line, but he also has been confused at times. Ken (daughter- POA) stated she also did not want central line placed, but wanted to try pressors in a peripheral IV, and go from there. This RN and Dr. Suarez witness to this conversation. Report called to Katiuska PAYROLL DIRECTOR. Bedside NIH done with PAYROLL DIRECTOR Teresa.
[2022-09-14] MEDS: Haloperidol Lactate 5 MG/ML Vial IV (06:56)
--- NOTE | 2022-09-14 07:23 | EX.PCM.CONCC ---
Assessment & Plan Assessment/Plan (1) Aspiration pneumonia: (2) Hypernatremia: (3) CKD (chronic kidney disease) stage 3, GFR 30-59 ml/min: PLAN: Plan RECOMMENDATIONS: 1. Clarify goals of therapy 2. Add D5W 3. Potential central line later today pending goals of therapy 4. Agree with empiric antibiotics pending cultures 5. Possible nephrology consult to discuss need for dialysis IMPRESSIONS: 1. Acute hypoxic respiratory failure secondary to suspected aspiration pneumonia Patient is requiring 10 L nasal cannula to maintain saturations. Some concern for upper airway secretions and cough capabilities. Patient may require NT suctioning if aggressive goals of therapy. Doubt patient would be able to tolerate BiPAP at this time. We will need to watch as patient has received significant fluids and could develop worsening hypoxic respiratory failure. We will need to clarify goals of therapy with family when they arrive. 2. Septic shock secondary to aspiration pneumonia Patient currently on stress dose steroids and pressor agents. Family is refusing a central line at this time, so Levophed is capped. Patient is on appropriate antibiotics for aspiration pneumonia. Patient may have an element of gram-negative sepsis given the worsening of blood pressure following antibiotics. Patient likely also has an element of intravascular depletion (albumin 1.3) contributing to hypotension. This will make resuscitation with fluids very difficult. 3. CKD stage IV/chronic hypernatremia/hyperchloremia Patient's baseline creatinine appears to be 2.86. Unfortunately, patient is not making much urine at this time. Cannot exclude progression to end-stage renal disease. Family has expressed wishes that he would not want dialysis if this is indicated. May need to obtain a nephrology consult for recommendations pending discussion with the family. Patient should be on D5W to help with hyperchloremia as the none anion gap hyperchloremic metabolic acidosis will increase respiratory demands. 4. Advanced age/frailty/pancytopenia/anasarca/multiple skin injuries Complicates care, management, recovery and prognosis. Patient with poor oncotic pressure leading to generalized edema despite intravascular depletion. Wound care will be consulted for evaluation of skin. TIME: 34 minutes critical care time spent addressing patient's acute hypoxic respiratory failure, septic shock, CKD stage IV, review of all data and collaboration with care team HPI Consult Data Date of Consult: 09/14/22 HPI Narrative HPI Narrative: SEEMA CHACON is an 86 M, with past medical history listed below, who presents to [facility] 09/13/2022 secondary to concerns for dehydration. Patient lives in extended-care facility secondary to dementia. Patient reportedly had been seen recently secondary to mechanical fall and has persisted in nausea and vomiting. Patient reportedly has complained of vertigo. No fevers been noted, but patient has had decreased p.o. intake secondary to nausea. Patient reportedly also has developed a wet cough and generalized weakness. Patient also has generalized anasarca and there is concerns about skin care. In the ER, patient was afebrile and normotensive initially requiring 4 L nasal cannula to maintain saturations. Laboratory data showed a white blood cell count of 8.2, hemoglobin of 8 and platelets of 62. Sodium was elevated at 156, along with chloride at 131 and creatinine at 3.13. Bicarbonate was decreased at 16 with a normal anion gap. BNP was elevated at 319. UA did show some blood, but no signs of infection. CT of the head showed atrophy and periventricular white matter ischemic changes. Chest x-ray showed bilateral perihilar infiltrates. Patient was given Zofran and admitted to the hospital on IV antibiotics secondary to concerns for aspiration pneumonia. On the PCU, patient started to develop refractory hypotension. Patient's POA was called and reportedly the patient and POA have refused a central line, but are open to peripheral pressors, so the patient was transferred to the intensive care unit for further evaluation. Since being in the intensive care unit, patient continues to ask for water, but is not reporting any pain. Patient does report shortness of breath when asked, but otherwise ruminates on wanting something to drink. Patient not able to provide a review of systems secondary to mental status. COUNTS INCLUDE 234 BEDS AT THE [facility] Medical History Abdominal aortic aneurysm (AAA) Abdominal aortic aneurysm without rupture Acute kidney injury Anasarca Atherosclerotic heart disease of [place] coronary artery without angina pectoris BPH (benign prostatic hyperplasia) C. difficile colitis CAD (coronary artery disease) Chronic kidney disease COVID Esophageal cancer Essential hypertension Gastric adenocarcinoma Generalized weakness Gout History of left heart catheterization (LHC) (~06/26/19) HTN (hypertension) Hyperlipidemia Hyperphosphatemia Kidney stones Macrocytic anemia Metabolic acidosis Murmur, cardiac Non-rheumatic aortic stenosis Old myocardial infarction Presence of stent in coronary artery (~09/05/02) Severe protein-calorie malnutrition Sleep apnea Home Medications omeprazole 40 mg capsule,delayed release 40 mg PO DAILY ACID REFLUX 06/30/16 [History Last Taken 07/21/22] tamsulosin 0.4 mg capsule 0.4 mg PO QHS PROSTATE 05/26/17 [History Last Taken 07/21/22] aspirin 81 mg tablet,delayed release 81 mg PO DAILY heart health 06/26/22 [History Last Taken 07/21/22] acetaminophen 325 mg tablet 325 - 650 mg PO Q6H PRN Pain 07/22/22 [History Last Taken Unknown] ascorbic acid (vitamin C) 500 mg tablet (Vitamin C) 500 mg PO BID SUPPLEMENT 07/22/22 [History Last Taken 07/21/22] cholecalciferol (vitamin D3) 50 mcg (2,000 unit) tablet (Vitamin D3) 50 mcg PO DAILY SUPPLEMENT 07/22/22 [History Last Taken 07/21/22] cyanocobalamin (vitamin B-12) 500 mcg tablet 500 mcg PO DAILY SUPPLEMENT 07/22/22 [History Last Taken 07/21/22] dextromethorphan-benzocaine 5 mg-7.5 mg lozenges 1 ralph PO Q2H PRN SORE THROAT/COUGH 07/22/22 [History Last Taken Unknown] ondansetron 4 mg disintegrating tablet 4 mg PO Q4H PRN NAUSEA/VOMITING 07/22/22 [History Last Taken Unknown] polysaccharide iron complex 150 mg iron capsule (iFerex 150) 150 mg PO DAILY SSUPPLEMENT 07/22/22 [History Last Taken 07/21/22] zinc sulfate 50 mg zinc (220 mg) tablet 50 mg PO DAILY SUPPLEMENT 07/22/22 [History Last Taken 07/21/22] vancomycin 25 mg/mL oral solution (Firvanq) 125 mg (5 mL) PO .as directed #150 mL 08/02/22 [Rx Last Taken Unknown] arginine 7 gram-glutam 7 gram-CaHMB 1.5 klka-[id number]-md-min oral pwd pkt (Juventino (with collagen)) 1 packet PO BIDCM #0 ea 08/04/22 [Rx Last Taken Unknown] menthol 0.44 %-zinc oxide 20.6 % topical ointment (Calmoseptine) 1 applic topical BID #0 grams 08/04/22 [Rx Last Taken Unknown] sodium bicarbonate 650 mg tablet 650 mg PO TID #0 tabs 08/04/22 [Rx Last Taken Unknown] Allergy/AdvReac Type Severity Reaction Status Date / Time adhesive Allergy burn-like Verified 09/13/22 15:09 cortisone [Cortisone] Allergy Rash Verified 09/13/22 15:09 simvastatin AdvReac joint/muscle Verified 09/13/22 15:09 aches Family History Father Congestive heart failure Mother Colon cancer Surgical History H/O right inguinal hernia repair History of cholecystectomy History of cholecystectomy History of gastrectomy (~07/2014) Presence of coronary angioplasty implant and graft (~09/05/02) S/P TAVR (transcatheter aortic valve replacement) (~12/27/19) Social History household members: spouse Smoking Status: Former smoker how long ago did patient quit smoking: Quit ~20 yrs prior, smoked since late 20s until quit, pipe specifically. alcohol intake: never substance use type: does not use ROS Review of Systems ROS Unobtainable: due to mental status Physical Exam Const alert General Appearance: in distress Positive for mild and frail HEENT normocephalic HEENT Narrative: Temporal wasting noted Eyes PERRL Eyes Narrative: Left scleral edema Neck full ROM Chest inspection of chest normal Resp Resp Narrative: Significant upper airway noises Effort and Inspection: tachypneic and actively coughing moist Auscultation: rhonchi throughout; Negative for rales or wheezes Cardio regular rate, regular rhythm, S1 normal heart sound, S2 normal heart sound, no murmurs, no rub and no gallops GI normal to inspection, nondistended, normoactive bowel sounds Extremity General Extremity: edema; Negative for clubbing Skin Skin Narrative: Stage I decubitus ulcer on the sacrum and spine General Skin Exam: dermatitis Wound Narrative: Multiple abrasions noted. See nursing notes. Neuro CN's II-XII intact bilaterally and moves all extremities Psych Activity / Motor Behavior: restless Mood & Affect: anxious Medical Records Data Attestation: I reviewed the patient's medical records Medical records narrative: Patient recently hospitalized at [facility]. Patient with a long history of chronic renal disease with a baseline creatinine around 3. Patient is a DNR Comfort Care arrest with no intubation Lab / Micro Data Attestation: I reviewed the patient's lab results. Lab results narrative: Patient has had persistent hypernatremia/hyperchloremia since the end of July Result Diagrams: 09/14/22 03:48 09/14/22 03:48 Labs: Laboratory Results - last 24 hr 09/13/22 16:51: WBC 8.2, RBC 2.44 L, Hgb 8.0 L, Hct 26.3 L, MCV 107.8 H, MCH 32.8 H, MCHC 30.4 L, RDW Std Deviation 75.6 H, RDW Coeff of Rain 19.1 H, Plt Count 62 L, MPV 12.7 H, Immature Gran % (Auto) 2.400 H, Neut % (Auto) 89.7 H, Lymph % (Auto) 5.8 L, [place] % (Auto) 1.9, Eos % (Auto) 0.1, Baso % (Auto) 0.1, Absolute Neuts (auto) 7.4, Absolute Lymphs (auto) 0.48 L, Nucleated RBC % 0.6, Differential Comment SCANNED, Platelet Estimate MKD DEC, Hypochromasia 1+, Anisocytosis 2+, Microcytosis 1+, Macrocytosis 1+ 09/13/22 16:51: Sodium 156 H, Potassium 4.2, Chloride 131 H*, Carbon Dioxide 16.0 L, Anion Gap 9, BUN 69 H, Creatinine 3.13 H, Estim Creat Clear Calc 18.03, Est GFR (MDRD) Af Amer 25 L, Est GFR (MDRD) Non-Af 20 L, BUN/Creatinine Ratio 22.0 H, Glucose 89, Calcium 7.7 L, Total Bilirubin 0.40, AST 25, ALT 24, Alkaline Phosphatase 186 H, Troponin I High Sens 15, Total Protein 5.3 L, Albumin 1.5 L, Globulin 3.8, Albumin/Globulin Ratio 0.4 L 09/13/22 16:51: B-Natriuretic Peptide 319.4 H 09/13/22 18:16: Urine Color Yellow, Urine Clarity Clear, Urine pH 5.0, Ur Specific [place] 1.020, Urine Protein 100 H, Urine Glucose (UA) Normal, Urine Ketones Negative, Urine Occult Blood 250 H, Urine Nitrite Negative, Urine Bilirubin Negative, Urine Urobilinogen Normal, Ur Leukocyte Esterase 25 H, Urine RBC 25-50 SEEN, Urine WBC 0-5 SEEN, Ur Squamous Epith Cells 0 SEEN, Urine Bacteria 1+, Urine Mucus 0 SEEN 09/13/22 23:17: Cortisol 35.40 H 09/14/22 01:45: Cortisol 47.00 H 09/14/22 03:48: WBC 3.1 L, RBC 2.51 L, Hgb 8.2 L, Hct 27.4 L, MCV 109.2 H, MCH 32.7 H, MCHC 29.9 L, RDW Std Deviation 77.3 H, RDW Coeff of Rain 19.3 H, Plt Count 61 L, MPV 12.5 H, Immature Gran % (Auto) 1.600 H, Neut % (Auto) 90.1 H, Lymph % (Auto) 6.1 L, [place] % (Auto) 1.9, Eos % (Auto) 0.0, Baso % (Auto) 0.3, Absolute Neuts (auto) 2.8, Absolute Lymphs (auto) 0.19 L, Nucleated RBC % 3.5, Differential Comment SCANNED, Diff Path Review December, Platelet Estimate MKD DEC, Hypochromasia 2+, Anisocytosis 1+, Macrocytosis 1+, James Cells RARE 09/14/22 03:48: Sodium 157 H, Potassium 4.2, Chloride 132 H*, Carbon Dioxide 14.0 L, Anion Gap 11, BUN 70 H, Creatinine 3.03 H, Estim Creat Clear Calc 19.66, Est GFR (MDRD) Af Amer 25 L, Est GFR (MDRD) Non-Af 21 L, BUN/Creatinine Ratio 23.1 H, Glucose 70 L, Calcium 7.4 L, Total Bilirubin 0.50, AST 21, ALT 22, Alkaline Phosphatase 158 H, Total Protein 4.7 L, Albumin 1.3 L, Globulin 3.4, Albumin/Globulin Ratio 0.4 L, Triglycerides 38, Cholesterol 59, LDL Cholesterol 12, VLDL Cholesterol 8, HDL Cholesterol 39 L Micro: Microbiology 09/13/22 19:38 Nasal Secretion SARS-CoV-2 & FLU Antigen (Rapid) - Final Radiology Impression Brain CT 09/13/22 16:24 IMPRESSION: Atrophy and periventricular white matter ischemic change. Old left occipital lobe infarct. No acute bleed. If concern for acute infarct MRI recommended. Electronically Signed: Jordan Heredia MD at 17:24 EST , Chest X-Ray 09/13/22 18:05 IMPRESSION: Bilateral perihilar infiltrates or pulmonary edema. Electronically Signed: Jordan Heredia MD at 18:23 EST ,
[2022-09-14] MEDS: Ipratropium/Albuterol Sulfate 3 ML AMPUL.NEB INHALATION ×4 (07:30→18:40)
--- NOTE | 2022-09-14 07:38 | CPS ---
Unable to obtain SpO2, Dr. Mckeon
--- NOTE | 2022-09-14 07:43 | NURSING ---
This RN called patient's daughter Ranid to update about patient's condition and how is blood pressure is still low on the levophed medication we had started. I did ask her to come in so that we could speak with her about patient's worsening condition. She stated she was getting ready to come in now.
--- NOTE | 2022-09-14 10:43 | PCM.PN.HOSP ---
Subjective Subjective Patient was seen and examined today, talked briefly with some of his family members who are in the room today. Critical care talked with the patient's family and they stated that the patient would want everything done. For now however, patient will remain as a DNR CC arrest without intubation, they would like a central line started if is necessary. He does not currently have a central line, that would need to be placed if he remains hypotensive. Pulmonary medicine states that he would like to try BiPAP on the patient and see if he can tolerate it and if he fails BiPAP, a central line would not be inserted and the family would be contacted and care would be discussed with them again. Objective Data Objective Data Vital Signs: Vital Signs Temp Pulse Resp BP Pulse Ox O2 Del Method O2 Flow Rate 90.8 F L 65 15 69/51 L 94 Nasal Cannula 10 09/14/22 09:00 09/14/22 10:21 09/14/22 10:21 09/14/22 09:00 09/14/22 10:21 09/14/22 09:00 09/14/22 09:00 FiO2 45 09/14/22 10:21 Oxygen Flow Rate (L/min) 10 Oxygen Delivery Method Nasal Cannula Weight: 76.4 kg Body Mass Index (BMI) 22.2 Intake & Output: Intake and Output for Last 24 Hours 09/12/22 09/13/22 09/14/22 23:59 23:59 23:59 Intake Total 1500 / 1500 1191.90 / 1191.90 Output Total 200 / 200 Balance 1500 / 1300 991.90 / 991.90 Lab / Micro Data Result Diagrams: 09/14/22 03:48 09/14/22 03:48 Labs: Laboratory Results - last 24 hr 09/13/22 16:51: WBC 8.2, RBC 2.44 L, Hgb 8.0 L, Hct 26.3 L, MCV 107.8 H, MCH 32.8 H, MCHC 30.4 L, RDW Std Deviation 75.6 H, RDW Coeff of Rain 19.1 H, Plt Count 62 L, MPV 12.7 H, Immature Gran % (Auto) 2.400 H, Neut % (Auto) 89.7 H, Lymph % (Auto) 5.8 L, [place] % (Auto) 1.9, Eos % (Auto) 0.1, Baso % (Auto) 0.1, Absolute Neuts (auto) 7.4, Absolute Lymphs (auto) 0.48 L, Nucleated RBC % 0.6, Differential Comment SCANNED, Platelet Estimate MKD DEC, Hypochromasia 1+, Anisocytosis 2+, Microcytosis 1+, Macrocytosis 1+ 09/13/22 16:51: Sodium 156 H, Potassium 4.2, Chloride 131 H*, Carbon Dioxide 16.0 L, Anion Gap 9, BUN 69 H, Creatinine 3.13 H, Estim Creat Clear Calc 18.03, Est GFR (MDRD) Af Amer 25 L, Est GFR (MDRD) Non-Af 20 L, BUN/Creatinine Ratio 22.0 H, Glucose 89, Calcium 7.7 L, Total Bilirubin 0.40, AST 25, ALT 24, Alkaline Phosphatase 186 H, Troponin I High Sens 15, Total Protein 5.3 L, Albumin 1.5 L, Globulin 3.8, Albumin/Globulin Ratio 0.4 L 09/13/22 16:51: B-Natriuretic Peptide 319.4 H 09/13/22 18:16: Urine Color Yellow, Urine Clarity Clear, Urine pH 5.0, Ur Specific [place] 1.020, Urine Protein 100 H, Urine Glucose (UA) Normal, Urine Ketones Negative, Urine Occult Blood 250 H, Urine Nitrite Negative, Urine Bilirubin Negative, Urine Urobilinogen Normal, Ur Leukocyte Esterase 25 H, Urine RBC 25-50 SEEN, Urine WBC 0-5 SEEN, Ur Squamous Epith Cells 0 SEEN, Urine Bacteria 1+, Urine Mucus 0 SEEN 09/13/22 23:17: Cortisol 35.40 H 09/14/22 01:45: Cortisol 47.00 H 09/14/22 03:48: WBC 3.1 L, RBC 2.51 L, Hgb 8.2 L, Hct 27.4 L, MCV 109.2 H, MCH 32.7 H, MCHC 29.9 L, RDW Std Deviation 77.3 H, RDW Coeff of Rain 19.3 H, Plt Count 61 L, MPV 12.5 H, Immature Gran % (Auto) 1.600 H, Neut % (Auto) 90.1 H, Lymph % (Auto) 6.1 L, [place] % (Auto) 1.9, Eos % (Auto) 0.0, Baso % (Auto) 0.3, Absolute Neuts (auto) 2.8, Absolute Lymphs (auto) 0.19 L, Nucleated RBC % 3.5, Differential Comment SCANNED, Diff Path Review May foll, Platelet Estimate MKD DEC, Hypochromasia 2+, Anisocytosis 1+, Macrocytosis 1+, Lloyd Cells RARE 09/14/22 03:48: Sodium 157 H, Potassium 4.2, Chloride 132 H*, Carbon Dioxide 14.0 L, Anion Gap 11, BUN 70 H, Creatinine 3.03 H, Estim Creat Clear Calc 19.66, Est GFR (MDRD) Af Amer 25 L, Est GFR (MDRD) Non-Af 21 L, BUN/Creatinine Ratio 23.1 H, Glucose 70 L, Calcium 7.4 L, Total Bilirubin 0.50, AST 21, ALT 22, Alkaline Phosphatase 158 H, Total Protein 4.7 L, Albumin 1.3 L, Globulin 3.4, Albumin/Globulin Ratio 0.4 L, Triglycerides 38, Cholesterol 59, LDL Cholesterol 12, VLDL Cholesterol 8, HDL Cholesterol 39 L Micro: Microbiology 09/13/22 19:38 Nasal Secretion SARS-CoV-2 & FLU Antigen (Rapid) - Final Radiography Diagnostic Testing: Radiology Impression Brain CT 09/13/22 16:24 IMPRESSION: Atrophy and periventricular white matter ischemic change. Old left occipital lobe infarct. No acute bleed. If concern for acute infarct MRI recommended. Electronically Signed: Jordan Heredia MD at 17:24 EST , Chest X-Ray 09/13/22 18:05 IMPRESSION: Bilateral perihilar infiltrates or pulmonary edema. Electronically Signed: Jordan Heredia MD at 18:23 EST , Physical Exam Const alert Constitutional Narrative: Patient is alert, he does not carry on a conversation with this examiner, he looks frail and unwell, he has audible expiratory rhonchi noted. General Appearance: cooperative and well developed Orientation / Consciousness: awake HEENT normocephalic, head/scalp atraumatic and moist oral mucous membranes Eyes PERRL, EOMs intact bilaterally and conjunctivae normal Neck supple, no JVD, thyroid normal and no carotid bruits General: trachea midline Resp Resp Narrative: Patient has rapid shallow respirations, the time of my examination he was on nasal cannula oxygen. Auscultation: rhonchi throughout; Negative for rales or wheezes Cardio regular rate, regular rhythm, S1 normal heart sound and S2 normal heart sound GI normal to inspection, nondistended, normoactive bowel sounds, soft to palpation, non-tender and non-distended Extremity Extremity Narrative: Severe lower extremity edema is noted bilaterally Neuro CN's II-XII intact bilaterally and no sensory deficits noted Sensorium / Orientation: awake and alert Psych Psych Narrative: Patient appears confused, he does not carry on a conversation with this examiner Assessment & Plan Assessment/Plan (1) Aspiration pneumonia: PLAN: Plan 1. Septic shock secondary to aspiration pneumonia-Central line will be placed today if the patient tolerates BiPAP, critical care is participating in his care #2 acute hypoxic respiratory failure secondary to aspiration pneumonia-patient is currently on BiPAP, again the patient is not going to be intubated if he further declines in his respiratory status. #3 aspiration pneumonia-again patient is n.p.o. at this time, he will need to be seen by speech therapy #4 anasarca-patient cannot be diuresed at this time due to low blood pressure. #5 severe debility-complicates care, medical course, recovery, and prognosis #6 hypernatremia-probably secondary to intravascular volume depletion-makes care, medical course, recovery, and prognosis complicated Total clinical time spent by myself addressing the patient's medical issues, reviewing all the data, and collaborating with patient's care team: 40 minutes Charges/Coding Visit Charges Inpatient E&M: 22383 Subs Hosp L2
--- NOTE | 2022-09-14 10:55 | CASEMGMT ---
NUHA called [facility] and spoke with Gisselle. NUHA asked Gisselle if [facility] has a copy of patient's Healthcare Power of Copy Center Operator papers. They looked and they do not. NUHA spoke with patient's daughter Shelli. NUHA asked if she has a copy of patient's Healthcare Power of Copy Center Operator papers. Shelli said their brother is the pantomimist for the family. She will call him and have him bring the documents. He is coming to [place] from [place]. NUHA asked how many children patient has and there are 6 children all together. NUHA asked if they all agree on things for the most part and she said they do. NUHA will continue to follow. Cassidy CALDERON
--- NOTE | 2022-09-14 11:05 | RAD_ITS ---
HISTORY: central line placement. TECHNIQUE: XR Chest 1 View. COMPARISON: Prior day. FINDINGS: LINES/TUBES: Right internal jugular central venous catheter tip at the level of the mid superior vena cava. CARDIOMEDIASTINAL BORDERS: Unchanged with aortic valve replacement. LUNGS: Persistent severe multifocal consolidation in the lungs. PLEURA: No pneumothorax. Probable trace left pleural effusion. RAD/CXR for Line Placement IMPRESSION: Satisfactory appearance of right central venous catheter. Electronically Signed: Celia Pinto MD at 11:23 EST ,
--- NOTE | 2022-09-14 11:07 | PCM.OP.BLANK ---
Operative Report Date of Procedure: 09/14/22 Central line placement procedure note Indication: IV access/hemodynamic instability/vasoactive medications Procedure: A time-out was completed to verify correct patient, indication, medication allergies, procedure, coagulation studies, informed consent signed, and equipment needed. The patient was placed in the supine position for a central line placement to the rt IJ vein. The patients rt neck was prepped using chlorhexidine and a full body sterile drape was applied. 1% lidocaine was used to anesthetize the surrounding skin. A 7fr 16 cm blue guard triple lumen catheter introduced into the internal jugular vein using the modified seldinger technique with the assistance of ultrasound. The catheter was threaded smoothly over the guidewire, the guidewire was removed easily, nonpulsatile blood returned. All ports were aspirated of air and flushed with sterile saline. The catheter was sutured in place and covered with an occlusive dressing impregnated with chlorhexidine. Post-procedure: The patient tolerated the procedure well. Vital signs remained stable. EBL 3 cc. No complications. Chest X Ray ordered to confirm tip placement and the absence of pneumothorax. Procedures Hospitalists Procedures: [id number] Insert Non-tunnel CV Cath
--- NOTE | 2022-09-14 11:30 | CHAPLAIN ---
Type of Pastoral Visit _x__ Initial Visit ___ Follow-up Visit ___ On-call Visit ___ General Patient Visit ___ Spiritual Assessment ___ Family Conference ___ Bereavement ___ Rapid Response ___ Code Blue ___ Other (describe below) Pastoral Care Referral From ___ Patient _x__ Family ___ Nurse ___ Physician ___ Supervisor Vacuum Metalizing ___ Karate Teacher ___ Other (describe below) Sacrament/Intervention _x__ Active listening _x__ Anointing ___ Jewish ___ Bereavement ___ Communion ___ Aminah exploration ___ ___ Life review ___ Prayer ___ Reconciliation ___ Sacrament of Sick _x__ Supportive presence ___ Wedding ___ Other (describe below) Pastoral Comments matrix worker arrived to give Anointing of the Sick and escorted he and family into room; met with family to give presence and support; pt is alert but on bi-pap and unable to communicate clearly; spouse is with him but she suffers from dementia and may not be understanding of the situation; two children are present and others are on their way to be present; ongoing support is available from this designer/writer
[2022-09-14 12:42] LABS: Pathologist Review Reviewed
[2022-09-14] MEDS: Haloperidol Lactate 5 MG/ML Vial 3 MG IV ×2 (13:22→17:25)
--- NOTE | 2022-09-14 15:48 | CHAPLAIN ---
Type of Pastoral Visit ___ Initial Visit ___ Follow-up Visit ___ On-call Visit ___ General Patient Visit ___ Spiritual Assessment ___ Family Conference ___ Bereavement ___ Rapid Response ___ Code Blue ___ Other (describe below) Pastoral Care Referral From ___ Patient ___ Family ___ Nurse ___ Physician ___ Chha ___ Dish Maker ___ Other (describe below) Sacrament/Intervention ___ Active listening ___ Anointing ___ Mormon ___ Bereavement ___ Communion ___ Aminah exploration ___ ___ Life review ___ Prayer ___ Reconciliation ___ Sacrament of Sick ___ Supportive presence ___ Wedding ___ Other (describe below) Pastoral Comments more family members have arrived; offered presence, listening ear, and support; will be available as needed for this family
--- NOTE | 2022-09-14 17:11 | CPS ---
Patient wanted to be taken off BiPAP for trial off BiPAP. This RT took patient off BiPAP and placed on 10L HFNC. Patient's SpO2 dropped to the mids 80's and the BiPAP was placed back on, but patient was unable to tolerate the BiPAP being put back on due to comfort. This RT explained the reasons why the BiPAP is important for the patient. This RT placed the BiPAP on the patient 3 different times and the patient was unable to tolerate.
[2022-09-14] MEDS: LORazepam 2 MG/ML Syringe IV (20:46)
[2022-09-14] MEDS: Atropine Sulfate 1% 2 ml Bottle 4 DRP PO (20:47)
[2022-09-14] MEDS: Morphine 2 MG/ML Syringe IV (20:47)
--- NOTE | 2022-09-15 00:40 | NURSING ---
1999- This RN called Dr. Trent to discuss patient's condition and families wishes. Family wished to change patient to a DNRCC- comfort care. Randi Nelson, patient's daughter and POA is at bedside along with other family members discussing with me that they wanted to stop the vasopressors and just keep the patient comfortable. Dr. Trent stated comfort care orders including Ativan 2-4mg IVP q1hr PRN for anxiety/agitation, Morphine 2-8mg IVP q1hr PRN for pain/discomfort/SOB, and Atropine 4 drops q3hr PRN for secretions. New orders were discussed and explained with family.
--- NOTE | 2022-09-15 00:45 | NURSING ---
2308- This RN noticed on the monitor patient's HR was dropping into the 30s and went in to assess patient. While this RN was auscultating for heart and lungs sounds the patient went asystole and none were heard. Denver Tillman, RN auscultated for second RN verification and he agreed no heart or lung sounds were heard. This RN continued to assess and pupils were fixed and dilated. No pulse was felt. Family is at bedside and informed of patient's passing and time of 2308. -Dr. Suarez was notified and updated of patient's at this time.
--- NOTE | 2022-09-15 07:48 | PCM.DEATH ---
Preliminary Cause of Preliminary Cause of Preliminary Cause of : Septic shock secondary to aspiration pneumonia Date of Admission: 09/13/22 Date of : 09/14/22 Principle Diagnosis 1. Septic shock from aspiration pneumonia #2 aspiration pneumonia #3 acute hypoxic respiratory failure secondary to septic shock and aspiration pneumonia #4 hypernatremia #5 anasarca #6 severe debility Problem List: Active and Suspected Problems (Updated 09/15/22 @ 00:01 by Background Tawnya) Aspiration pneumonia (Acute) Intractable nausea and vomiting (Acute) Hypernatremia (Acute) Hospital Course This 86-year-old white male was seen in the emergency room at [facility] after being sent there from assisted living with concerns regarding dehydration. Patient has also dementia. Recently the patient had persistent nausea and vomiting and complained of dizziness. He had also developed a wet cough with generalized weakness. Evaluation in the ER revealed patient to be afebrile, requiring 4 L of nasal cannula oxygen to maintain saturations above 90, white blood cell count was 8.2, hemoglobin was 8, and platelet count 62,000. Sodium was elevated at 156 and chloride was elevated at 131 BNP was elevated at 319. UA showed some blood but no bacteria or white cells. Chest x-ray showed bilateral perihilar infiltrates, patient was admitted to ICU for aspiration pneumonia and septic shock, peripheral pressors were started and the patient was put on high flow oxygen. Discussions were carried out with the family on 09/14/2022 regarding aggressiveness of treatment, family requested the patient be a DNR CC arrest without intubation but requested a central line be placed for pressor administration and requested that BiPAP be used if necessary to maintain oxygenation. Patient further deteriorated on 09/14/2022, I was contacted approximately 530 to 6 PM regarding continuing aggressive treatment, patient refused BiPAP and I asked nursing to have the family come in and have a conversation with him in themselves regarding how aggressive to get with the patient. Evidently, it was decided that the patient would be a comfort care, aggressive treatment was stopped and the patient at 2309 on 09/14/2022.
== END 2022-09-15 00:30 | disposition home or self-care (01) | DRG 871 ==
LOC: ED 17:02 → PCU 20:07 → ICU 09-14 07:47 → PCU 09-14 10:24
PROVIDERS: Admitting Provider Internal Medicine; Emergency Provider Student in an Organized Health Care Education/Training Program; PCP Internal Medicine; Visit Provider Internal Medicine
DX: A41.9 Sepsis, unspecified organism (principal); J69.0 Pneumonitis due to inhalation of food and vomit; J96.01 Acute respiratory failure with hypoxia; R65.21 Severe sepsis with septic shock; N17.9 Acute kidney failure, unspecified; N18.4 Chronic kidney disease, stage 4 (severe); D61.818 Other pancytopenia; E87.0 Hyperosmolality and hypernatremia; F03.90 Unspecified dementia, unspecified severity, without behavioral disturbance, psychotic disturbance, mood disturbance, and anxiety; I12.9 Hypertensive chronic kidney disease with stage 1 through stage 4 chronic kidney disease, or unspecified chronic kidney disease; D63.1 Anemia in chronic kidney disease; I95.1 Orthostatic hypotension; E87.8 Other disorders of electrolyte and fluid balance, not elsewhere classified; E78.5 Hyperlipidemia, unspecified; I25.10 Atherosclerotic heart disease of native coronary artery without angina pectoris; I25.2 Old myocardial infarction; R60.0 Localized edema; Z66 Do not resuscitate; Z95.5 Presence of coronary angioplasty implant and graft; Z79.82 Long term (current) use of aspirin; Z79.899 Other long term (current) drug therapy; Z85.01 Personal history of malignant neoplasm of esophagus; Z86.16 Personal history of COVID-19; Z87.891 Personal history of nicotine dependence
CPT/HCPCS: 36415; 70450; 71045; 80053; 80061; 81001; 82533; 83880; 84484; 85025; 87428; 93005; 93306; 94002; 94640; 94762; 97802; 99285; J7030; J7040; J7050; A4216; C1751; J0295; J2405; J3490